=== PATIENT | female | born 1935 | race Caucasian/White ===

== ENCOUNTER 2016-12-10 12:29 | Inpatient (IN) | payer MEDICARE, OTHER ==
--- NOTE | 2016-12-10 12:50 | ED Physician Chart ---
Chief Complaint/HPI - Patient Information Date Seen:: 12/10/16 Time Seen:: 12:40 Chief Complaint:: WBC OF 25 K History of Present Illness:: This 81-year-old female was sent to the hospital by her primary care physician, Dr. Garza, because of a white count in the 25,000 range and suspected sepsis. On review of records which accompanied her it was unclear if the patient had been running any fever prior to arrival in the ED. Patient suffers from Alzheimer's disease and is unable to provide any information. Records which accompanied the patient noted that she had chronic respiratory failure with both hypoxia and for hypercaptnia. The record also notes that the patient has hypothyroidism, long-standing diabetes, epilepsy and peptic ulcer disease. The patient is on a ventilator with a tracheostomy. Patient also has a history of Parkinson's disease, anemia and a pressure sore over in the sacral region. Neither the patient nor the transporting EMS personnel had any additional information. Allergies:: Allergies Allergy/AdvReac Type Severity Reaction Status Date / Time No Known Allergies Allergy Verified 03/03/16 18:27 Review of Systems - Review of Systems General/Constitutional: Other (a reliable review of systems was unobtainable due to the patient's mental condition.) Past Medical History - Past Medical History Past Medical History: HTN, CVA/TIA, Dementia, Other (See HPI for a list of past medical history.) Social History: Care Facility Employment:: No information is available on the patient's use of tobacco, alcohol or illicit drugs. The patient came in from a care facility.. Family Medical History - Family Member Mother History Unknown: Yes Ethnicity: Living Status: Unknown Physical Exam - Physical Examination Other Gen/Cons comments:: Patient is morbidly obese and does not respond to verbal commands or questions. Head: Atraumatic Eyes: Lids, conjuctiva normal, PERRL Other Eyes comments:: Patient will not cooperate with the EOM exam. Skin: No ecchymosis, Well hydrated, No lymphadenopathy Other Skin comments:: Patient has a scarred over sacral decubitus ulceration. ENMT: External ears, nose nl Other ENMT comments:: Examination of the oral cavity is made difficult by the patient's clenched teeth. Her teeth appear to be in moderately good repair considering her age. Gag Reflex was intact. No inflammation of the posterior pharynx. What I could observe of the oral mucosa it appeared to be adequately hydrated. No inspissated secretions noted. Other Neck comments:: Examination of the neck is difficult limited due to the patient's weight and the fact that she has a tracheostomy tube in place. No palpable masses or thyromegaly. No JVD. Other Respiratory comments:: Patient has ventilator-assisted respiratory drive. Breath sounds sounded clear to anterior auscultation. No wheezing and no rhonchi were appreciated. Cardio Vascular: No murmur, gallop, rubs, NL S1 S2 Other Cardio Vascular comments:: The patient has surprisingly good pulses in all 4 extremities. GI: No McBurney tenderness Other GI comments:: On examination the patient has a very large ventral hernia from surgical incisions. Bowel sounds were present. No palpable masses or organomegaly. The patient did not appear to have any tenderness in the abdomen. There is a gastrostomy tube in the left upper quadrant. A Morfin catheter is also in place at the time of admission. Extremities: No tenderness or effusion, No edema Other Neuro/Psych comments:: The patient withdraws to noxious stimuli in both upper extremities. The patient has a positive Babinski in the right lower extremity. The left lower extremity the patient withdraws to noxious stimuli. Misc: Normal back Other Misc comments:: Patient has a deep scarred over decubital ulcer in the sacral region. Labs/Radiology/EKG Results - Lab Results Results: Laboratory Tests 12/10/16 12/10/16 12/10/16 13:00 13:00 13:00 WBC 17.8 H D RBC 3.11 L Hgb 8.9 L Hct 26.6 L MCV 85.5 MCH 28.8 MCHC Differential 33.7 RDW 17.0 Plt Count 218 MPV 8.2 Band Neutrophils % 4 Neutrophils (Manual) 77 Lymphocytes 11 L Monocytes 5 Eosinophils 3 Platelet Estimate ADEQUATE Platelet Morphology NORMAL RBC Morph Micro Appear NORMAL Sodium 124 L Potassium 4.0 Chloride 90 L Carbon Dioxide 29.4 Anion Gap 8.6 BUN 47 H Creatinine 0.7 Est GFR ( Amer) TNP Est GFR (Non-Af Amer) TNP BUN/Creatinine Ratio 67.1 Glucose 356 H Hemoglobin A1c % Whole Bld Lactic Acid 2.64 H* Calcium 9.7 Total Bilirubin 0.6 AST 54 H ALT 40 Alkaline Phosphatase 105 H Troponin I Total Protein 7.9 Albumin 3.3 L Globulin 4.6 Albumin/Globulin Ratio 0.7 L Urine Source Urine Color Urine Clarity Urine pH Ur Specific [place] Urine Protein Urine Glucose (UA) Urine Ketones Urine Blood Urine Nitrate Urine Bilirubin Urine Urobilinogen Ur Leukocyte Esterase Urine RBC Urine WBC Ur Epithelial Cells Urine Bacteria 12/10/16 12/10/16 12/10/16 13:00 13:00 13:40 WBC RBC Hgb Hct MCV MCH MCHC Differential RDW Plt Count MPV Band Neutrophils % Neutrophils (Manual) Lymphocytes Monocytes Eosinophils Platelet Estimate Platelet Morphology RBC Morph Micro Appear Sodium Potassium Chloride Carbon Dioxide Anion Gap BUN Creatinine Est GFR ( Amer) Est GFR (Non-Af Amer) BUN/Creatinine Ratio Glucose Hemoglobin A1c % 7.8 H Whole Bld Lactic Acid Calcium Total Bilirubin AST ALT Alkaline Phosphatase Troponin I 0.01 Total Protein Albumin Globulin Albumin/Globulin Ratio Urine Source RANDOM Urine Color STRAW Urine Clarity CLEAR Urine pH 7.5 Ur Specific [place] <= 1.005 Urine Protein NEGATIVE Urine Glucose (UA) NEGATIVE Urine Ketones NEGATIVE Urine Blood NEGATIVE Urine Nitrate NEGATIVE Urine Bilirubin NEGATIVE Urine Urobilinogen 0.2 Ur Leukocyte Esterase NEGATIVE Urine RBC NONE SEEN Urine WBC NONE SEEN Ur Epithelial Cells NONE SEEN Urine Bacteria NONE SEEN 12/10/16 15:08 WBC RBC Hgb Hct MCV MCH MCHC Differential RDW Plt Count MPV Band Neutrophils % Neutrophils (Manual) Lymphocytes Monocytes Eosinophils Platelet Estimate Platelet Morphology RBC Morph Micro Appear Sodium Potassium Chloride Carbon Dioxide Anion Gap BUN Creatinine Est GFR ( Amer) Est GFR (Non-Af Amer) BUN/Creatinine Ratio Glucose Hemoglobin A1c % Whole Bld Lactic Acid 2.11 H* Calcium Total Bilirubin AST ALT Alkaline Phosphatase Troponin I Total Protein Albumin Globulin Albumin/Globulin Ratio Urine Source Urine Color Urine Clarity Urine pH Ur Specific [place] Urine Protein Urine Glucose (UA) Urine Ketones Urine Blood Urine Nitrate Urine Bilirubin Urine Urobilinogen Ur Leukocyte Esterase Urine RBC Urine WBC Ur Epithelial Cells Urine Bacteria The CBC shows a white count of 17,000 range and a hemoglobin level just under 9 g percent. Initial lactic acid was 2.64 and after IV hydration and it fell to 2.1 the high BUN to creatinine ratio is suggestive of GI bleeding. Urinalysis was negative for any evidence of UTI. Patient has a rather drastic hyponatremia of 124. - Radiology Results Results: Single view chest x-ray: - EKG Interpretations EKG Time:: 12:50 Rate & Rhythm: normal sinus rhythm at a rate of 86. No ectopy. Normal axis. Intervals P [place]: normal Intervals: the MS interval was normal. The QRS interval is normal. QT interval vidya Comments:: ST segment elevation or depression. Impression normal EKG. Assessment - Assessment General Assessment: CASE SUMMARY: this 81-year-old female was referred to the ED by her PMD, Dr. Garza. The reason for the referral was leukocytosis in the 25 K range Enter rule out sepsis. The patient's vital signs were stable and she was not febrile. Chest x-ray showed bilateral patchy infiltrates consistent with pneumonia. The UA was negative for any evidence of UTI. The patient was treated with 30 cc/KG normal saline, IV ceftriaxone 2 g, and Levaquin 750 mg. The patient will be admitted for further diagnostic evaluation and treatment of sepsis. MDM DDX LEUKOCYTOSIS: NOT UTI Based on you a result. NOT Cellulitis based on physical examination. NOT sepsis due to central line based on physical exam ED Septic Shock - . Is Septic Shock (SBP<90, OR Lactate>4 mmol\L) present?: No Reassessment (Disposition) - Reassessment Reassessment Condition:: Unchanged - Diagnosis Diagnosis:: PNEUMONIA, BILATERAL. DIABETES WITH HYPERGLYCEMIA. MARKED HYPONATREMIA - Patient Disposition Discharge/Transfer:: Acute Care w/in this hosp ED Discharge Plan - Patient Disposition Admit/Discharge/Transfer: Acute Care w/in this hosp Condition at Disposition: Unchanged
[2016-12-10 13:07] LABS: HEMATOCRIT 26.6 % (35.0-45.0); HEMOGLOBIN 8.9 gm/dL (11.7-16.1); MEAN CELL VOLUME 85.5 fl (81-100); MEAN CORPUSCULAR HEMOGLOBIN 28.8 pg (27.0-31.0); MEAN CORPUSCULAR HGB CONC 33.7 pg (28.0-36.0); MEAN PLATELET VOLUME 8.2 fl; PLATELET COUNT 218 Th/cmm (150-400); RED BLOOD COUNT 3.11 Mil/cmm (3.80-5.20)
[2016-12-10 13:14] LABS: WHITE BLOOD COUNT 17.8 Th/cmm (4.8-10.8)
[2016-12-10 13:26] LABS: ALB/GLOB RATIO 0.7 (1.0-1.8); ALKALINE PHOSPHATASE 105 U/L (34-104); ANION GAP 8.6 (7.0-16.0); BILIRUBIN,TOTAL 0.6 mg/dL (0.3-1.0); BUN - UREA NITROGEN 47 mg/dL (7-25); BUN/CREATININE RATIO 67.1; CALCIUM SERUM 9.7 mg/dL (8.6-10.3); CARBON DIOXIDE 29.4 mEq/L (21.0-31.0); CHLORIDE 90 mEq/L (98-107); CREATININE - SERUM 0.7 mg/dL (0.6-1.2); GLUCOSE 356 mg/dL (70-105); SGOT 54 U/L (13-39); SGPT/ALT 40 U/L (7-52); SODIUM SERUM 124 mEq/L (136-145)
[2016-12-10] MEDS ORDERED: cefTRIAXone 2 GM in Sodium Chloride 0.9% 100 ML IV ONE (14:06)
[2016-12-10] MEDS ORDERED: Levofloxacin 750mg/150mL 750 MG/150 ML BAG IV ONE ×2 (14:07→15:39)
[2016-12-10 14:29] LABS: BAND NEUTROPHILE 4 % (0-10); EOSINOPHIL 3 % (0-5); NEUTROPHILS 77 % (40-80); PLATELET ESTIMATE ADEQUATE (NORMAL); PLATELET MORPHOLOGY NORMAL (NORMAL); TOTAL CELLS COUNTED 100
[2016-12-10 14:37] LABS: URINE BILIRUBIN NEGATIVE (NEGATIVE); URINE BLOOD NEGATIVE (NEGATIVE); URINE GLUCOSE (UA) NEGATIVE (NEGATIVE); URINE KETONE NEGATIVE (NEGATIVE); URINE PH 7.5 (4.6 - 8.0); URINE PROTEIN NEGATIVE (NEGATIVE); URINE UROBILINOGEN 0.2 E.U./dL (0.2 - 1.0)
[2016-12-10 15:03] LABS: URINE COLOR STRAW
[2016-12-10 15:07] LABS: URINE BACTERIA NONE SEEN /hpf (NONE SEEN); URINE EPITHELIAL CELLS NONE SEEN /lpf (FEW); URINE RBC NONE SEEN /hpf (0-5); URINE WBC NONE SEEN /hpf (0-5)
[2016-12-10] MEDS ORDERED: GLUCAGON HCl 1 MG KIT IM PRN (19:20)
[2016-12-10] MEDS ORDERED: cefTRIAXone 1 GM in Sodium Chloride 0.9% 50 ML IV SCH (19:20)
[2016-12-10] MEDS ORDERED: Albuterol/Ipratropium Neb 3 ML AERS HHN PRN (19:20)
[2016-12-10] MEDS ORDERED: Guaifenesin DM 10 ML UDC GT PRN (19:20)
[2016-12-10] MEDS ORDERED: INSULIN ASPART SLIDING SCALE 100 UNITS/ML UNIT SUBQ SCH (19:20)
[2016-12-10] MEDS ORDERED: Magnesium Citrate 1.75 GM/300 mL Bottle PO PRN (19:20)
[2016-12-10] MEDS ORDERED: Lactulose 10 Gm/15 mL 30mL UDC GT PRN (19:20)
[2016-12-10] MEDS ORDERED: LANOLIN TP SCH (20:00)
[2016-12-10] MEDS: Levetiracetam 500 mg/5mL 5mL UDC GT SCH (21:03)
[2016-12-10] MEDS: Chlorhexidine Gluconate 0.12% 15mL Mouthwash MM SCH (21:03)
[2016-12-10] MEDS: Sodium Chloride 0.9% 1,000 ML IV SCH (21:14)
[2016-12-10] MEDS: INSULIN 70/30 100 UNITS/ML SUBQ SCH (21:21)
[2016-12-10] MEDS: Albuterol/Ipratropium Neb 3 ML AERS HHN SCH ×2 (22:46→22:47)
[2016-12-11] MEDS: Albuterol/Ipratropium Neb 3 ML AERS HHN SCH ×4 (03:20→19:10)
[2016-12-11] MEDS: Sodium Chloride 0.9% 1,000 ML IV SCH ×2 (04:25→14:20)
[2016-12-11] MEDS: INSULIN ASPART SLIDING SCALE 100 UNITS/ML UNIT SUBQ SCH ×5 (06:46→17:57)
[2016-12-11 06:49] LABS: HEMOGLOBIN 8.5 gm/dL (11.7-16.1)
[2016-12-11] MEDS: INSULIN 70/30 100 UNITS/ML SUBQ SCH ×2 (06:50→21:00)
[2016-12-11 06:57] LABS: HEMATOCRIT 25.6 % (35.0-45.0); MEAN CELL VOLUME 85.7 fl (81-100); MEAN CORPUSCULAR HEMOGLOBIN 28.5 pg (27.0-31.0); MEAN CORPUSCULAR HGB CONC 33.3 pg (28.0-36.0); MEAN PLATELET VOLUME 9.8 fl; RED BLOOD COUNT 2.99 Mil/cmm (3.80-5.20)
[2016-12-11 07:13] LABS: ALB/GLOB RATIO 0.8 (1.0-1.8); ALKALINE PHOSPHATASE 94 U/L (34-104); ANION GAP 9.6 (7.0-16.0); BILIRUBIN,TOTAL 0.4 mg/dL (0.3-1.0); BUN - UREA NITROGEN 34 mg/dL (7-25); BUN/CREATININE RATIO 48.6; CALCIUM SERUM 9.1 mg/dL (8.6-10.3); CARBON DIOXIDE 26.5 mEq/L (21.0-31.0); CHLORIDE 100 mEq/L (98-107); CREATININE - SERUM 0.7 mg/dL (0.6-1.2); GLUCOSE 255 mg/dL (70-105); POTASSIUM SERUM 4.1 mEq/L (3.5-5.1); SGOT 37 U/L (13-39); SGPT/ALT 51 U/L (7-52); SODIUM SERUM 132 mEq/L (136-145)
[2016-12-11 07:52] LABS: PLATELET COUNT 170 Th/cmm (150-400); WHITE BLOOD COUNT 17.3 Th/cmm (4.8-10.8)
[2016-12-11 07:56] LABS: pH 7.48 (7.35-7.45)
[2016-12-11 07:57] LABS: ABG SOURCE Arterial; ALLEN TEST Positive; BE(B) 6.4 mEq/L (-3.0-3.0); FIO2 30; HCO3 29.2 mEq/L (20.0-26.0); MECH RATE 16; MECH VT 500
--- NOTE | 2016-12-11 08:09 | Internal Medicine Prog Note ---
Internal Medicine Subjective - Subjective Service Date: 12/11/16 ([id number] hn dictated) Internal Medicine Objective - Results Result Diagrams: 12/11/16 04:32 12/11/16 04:32 Recent Labs: Laboratory Last Values WBC 17.3 Th/cmm (4.8-10.8) H 12/11/16 04:32 RBC 2.99 Mil/cmm (3.80-5.20) L 12/11/16 04:32 Hgb 8.5 gm/dL (11.7-16.1) L 12/11/16 04:32 Hct 25.6 % (35.0-45.0) L 12/11/16 04:32 MCV 85.7 fl (81-100) 12/11/16 04:32 MCH 28.5 pg (27.0-31.0) 12/11/16 04:32 MCHC Differential 33.3 pg (28.0-36.0) 12/11/16 04:32 RDW 16.0 % (11.5-20.0) 12/11/16 04:32 Plt Count 170 Th/cmm (150-400) D 12/11/16 04:32 MPV 9.8 fl 12/11/16 04:32 Band Neutrophils % 4 % (0-10) 12/10/16 13:00 Neutrophils (Manual) 77 % (40-80) 12/10/16 13:00 Lymphocytes 11 % (20-50) L 12/10/16 13:00 Monocytes 5 % (2-10) 12/10/16 13:00 Eosinophils 3 % (0-5) 12/10/16 13:00 Platelet Estimate ADEQUATE (NORMAL) 12/10/16 13:00 Platelet Morphology NORMAL (NORMAL) 12/10/16 13:00 RBC Morph Micro Appear NORMAL (NORMAL) 12/10/16 13:00 Specimen Source Arterial 12/11/16 07:44 Sample Site Right Radial 12/11/16 07:44 pH 7.48 (7.35-7.45) H 12/11/16 07:44 pCO2 41.0 mmHg (35.0-45.0) 12/11/16 07:44 pO2 86.0 mmHg (80.0-100.0) 12/11/16 07:44 HCO3 29.2 mEq/L (20.0-26.0) H 12/11/16 07:44 Base Excess 6.4 mEq/L (-3.0-3.0) H 12/11/16 07:44 O2 Saturation 97.0 % (92.0-100.0) 12/11/16 07:44 Terry Test Positive 12/11/16 07:44 Vent Rate 16 12/11/16 07:44 Inspired O2 30 12/11/16 07:44 Tidal Volume 500 12/11/16 07:44 PEEP 5 12/11/16 07:44 Pressure (ins/psv/peep) NA 12/11/16 07:44 Critical Value LZHANG 12/11/16 07:44 Sodium 132 mEq/L (136-145) L 12/11/16 04:32 Potassium 4.1 mEq/L (3.5-5.1) 12/11/16 04:32 Chloride 100 mEq/L (98-107) 12/11/16 04:32 Carbon Dioxide 26.5 mEq/L (21.0-31.0) 12/11/16 04:32 Anion Gap 9.6 (7.0-16.0) 12/11/16 04:32 BUN 34 mg/dL (7-25) H 12/11/16 04:32 Creatinine 0.7 mg/dL (0.6-1.2) 12/11/16 04:32 Est GFR ( Amer) TNP 12/11/16 04:32 Est GFR (Non-Af Amer) TNP 12/11/16 04:32 BUN/Creatinine Ratio 48.6 12/11/16 04:32 Glucose 255 mg/dL (70-105) H 12/11/16 04:32 POC Glucose 270 MG/DL (70 - 105) H 12/11/16 05:48 Hemoglobin A1c % 7.8 % (4.0-6.0) H 12/10/16 13:00 Whole Bld Lactic Acid 2.11 mmol/L (0.60-1.99) H* 12/10/16 15:08 Calcium 9.1 mg/dL (8.6-10.3) 12/11/16 04:32 Total Bilirubin 0.4 mg/dL (0.3-1.0) 12/11/16 04:32 AST 37 U/L (13-39) 12/11/16 04:32 ALT 51 U/L (7-52) 12/11/16 04:32 Alkaline Phosphatase 94 U/L (34-104) 12/11/16 04:32 Troponin I 0.01 ng/mL (0.01-0.05) 12/10/16 13:00 Total Protein 7.4 gm/dL (6.0-8.3) 12/11/16 04:32 Albumin 3.2 gm/dL (3.7-5.3) L 12/11/16 04:32 Globulin 4.2 gm/dL 12/11/16 04:32 Albumin/Globulin Ratio 0.8 (1.0-1.8) L 12/11/16 04:32 Urine Source RANDOM 12/10/16 13:40 Urine Color STRAW 12/10/16 13:40 Urine Clarity CLEAR (CLEAR) 12/10/16 13:40 Urine pH 7.5 (4.6 - 8.0) 12/10/16 13:40 Ur Specific [place] <= 1.005 (1.005-1.030) 12/10/16 13:40 Urine Protein NEGATIVE mg/dL (NEGATIVE) 12/10/16 13:40 Urine Glucose (UA) NEGATIVE mg/dL (NEGATIVE) 12/10/16 13:40 Urine Ketones NEGATIVE mg/dL (NEGATIVE) 12/10/16 13:40 Urine Blood NEGATIVE (NEGATIVE) 12/10/16 13:40 Urine Nitrate NEGATIVE (NEGATIVE) 12/10/16 13:40 Urine Bilirubin NEGATIVE (NEGATIVE) 12/10/16 13:40 Urine Urobilinogen 0.2 E.U./dL (0.2 - 1.0) 12/10/16 13:40 Ur Leukocyte Esterase NEGATIVE (NEGATIVE) 12/10/16 13:40 Urine RBC NONE SEEN /hpf (0-5) 12/10/16 13:40 Urine WBC NONE SEEN /hpf (0-5) 12/10/16 13:40 Ur Epithelial Cells NONE SEEN /lpf (FEW) 12/10/16 13:40 Urine Bacteria NONE SEEN /hpf (NONE SEEN) 12/10/16 13:40 - Physical Exam Vitals and I&O: Vital Signs Temp 99.5 F 12/11/16 04:00 Pulse 98 12/11/16 06:56 Resp 15 12/11/16 06:00 BP 107/54 12/11/16 06:00 Pulse Ox 100 12/11/16 06:56 Intake & Output 12/10/16 12/11/16 12/11/16 18:59 06:59 18:59 Intake Total 876.666 Output Total 1200 Balance -323.334 Weight (lbs) 201 lb Intake: Intake, IV Amount 876.666 Sodium Chloride 0.9% 1, 876.666 000 ml @ 100 mls/hr IV . Q10H JUAN FRANCISCO Rx#:[id number] Oral 0 Output: Urine 1200 Other: # Bowel Movements 1 Stool Characteristics Soft Black Green Active Medications: Current Medications Acetaminophen (Tylenol 650mg/20.3ml Suspension) 650 mg GT Q6HR PRN PRN Reason: Pain or Fever >101 Stop: 02/08/17 19:19 Acetaminophen/Hydrocodone Bitart ([place] 5mg/325mg) 1 tab GT DAILY JUAN FRANCISCO Stop: 02/09/17 08:59 Acetaminophen/Hydrocodone Bitart ([place] 5mg/325mg) 1 tab GT Q6H PRN PRN Reason: Pain (Severe) Stop: 02/08/17 19:19 Acetylcysteine (Mucomyst 20%) 2 ml HHN Q6H JUAN FRANCISCO Stop: 02/08/17 19:19 Last Admin: 12/11/16 01:13 Dose: Not Given Albuterol/Ipratropium (Duoneb Neb) 3 ml HHN Q4H JUAN FRANCISCO Stop: 02/08/17 19:19 Last Admin: 12/11/16 06:56 Dose: 3 ml Albuterol/Ipratropium (Duoneb Neb) 3 ml HHN Q2H PRN PRN Reason: Wheezing Stop: 02/08/17 19:19 Allopurinol (Zyloprim) 200 mg GT DAILY [facility] Stop: 02/09/17 08:59 Amlodipine Besylate (Norvasc) 5 mg GT DAILY [facility] Stop: 02/09/17 08:59 Ascorbic Acid (Vitamin C) 500 mg GT DAILY [facility] Stop: 02/09/17 08:59 Benztropine Mesylate (Cogentin) 1 mg GT BID [facility] Stop: 02/09/17 08:59 Carbidopa/Levodopa (Sinemet 25mg-100 Mg) 1 tab GT DAILY [facility] FRANCISCO Stop: 02/09/17 08:59 Chlorhexidine Gluconate (Peridex) 15 ml MM [facility] Stop: 02/08/17 19:59 Last Admin: 12/10/16 21:03 Dose: 15 ml Clonazepam (Klonopin) 0.5 mg GT BID JUAN FRANCISCO PRN Reason: Protocol Stop: 02/09/17 08:59 Dextrose (Glutose 40%) 18.75 gm PO PRN PRN PRN Reason: Blood Glucose less than 70 Stop: 02/08/17 19:19 Docusate Sodium (Colace) 250 mg PO BID [facility] Stop: 02/09/17 08:59 Famotidine (Pepcid) 20 mg GT DAILY [facility] Stop: 02/09/17 08:59 Ferrous Sulfate (Iron) 330 mg GT DAILY [facility] Stop: 02/09/17 08:59 Glipizide (Glucotrol) 5 mg GT BID [facility] Stop: 02/09/17 08:59 Glucagon (Glucagen) 1 mg IM PRN PRN PRN Reason: Blood Glucose less than 70 Stop: 02/08/17 19:19 Guaifenesin/Dextromethorphan (Robitussin Dm) 5 ml GT Q6H PRN PRN Reason: Cough Stop: 02/08/17 19:19 Last Admin: 12/11/16 07:01 Dose: 5 ml Heparin Sodium (Porcine) (Heparin) 5,000 units SUBQ Q12HR [facility] Stop: 02/08/17 20:59 Last Admin: 12/10/16 21:03 Dose: 5,000 units Ceftriaxone Sodium 1 gm/ (Sodium Chloride) 50 mls @ 100 mls/hr IV Q24HR [facility] Stop: 02/08/17 19:19 Sodium Chloride (Nacl 0.9%) 1,000 mls @ 100 mls/hr IV .Q10H [facility] Stop: 02/08/17 19:19 Last Infusion: 12/11/16 06:00 Dose: 100 mls/hr Insulin Aspart (Novolog Insulin Sliding Scale) 0 units SUBQ Q6HR [facility] FRANCISCO PRN Reason: Protocol Stop: 02/08/17 19:19 Last Admin: 12/11/16 07:15 Dose: Not Given Insulin Human Isoph/Insulin Regular (Novolin 70/30) 22 units SUBQ HS [facility] PRN Reason: Protocol Stop: 02/08/17 20:59 Last Admin: 12/10/16 21:21 Dose: 22 units Insulin Human Isoph/Insulin Regular (Novolin 70/30) 45 units SUBQ QDAC [facility] FRANCISCO PRN Reason: Protocol Stop: 02/09/17 07:29 Last Admin: 12/11/16 06:50 Dose: 45 units Lactulose (Cephulac) 30 gm GT PRN PRN PRN Reason: BOWEL MANAGEMENT Stop: 02/08/17 19:19 Levetiracetam (Keppra) 1,000 mg GT Q12HR [facility]ANCISCO Stop: 02/08/17 20:59 Last Admin: 12/10/16 21:03 Dose: 1,000 mg Levothyroxine Sodium (Synthroid) 0.1 mg GT QDAC [facility]ANCISCO Stop: 02/09/17 07:29 Lisinopril (Zestril) 20 mg GT DAILY [facility]ANC[facility]CO Stop: 02/09/17 08:59 Magnesium Citrate (Citroma) 17.5 gm PO Q12HR PRN PRN Reason: Constipation Stop: 02/08/17 19:19 Metoclopramide HCl (Reglan) 10 mg GT Q6HR [facility] FRANCISCO Stop: 02/08/17 19:19 Last Admin: 12/11/16 06:18 Dose: 10 mg Miscellaneous (Amino Acids/Protein Hydrolys [Pro-Stat Sugar Free Liquid]) 30 ml GT BID [facility] FRANCISCO Stop: 02/09/17 08:59 Miscellaneous (Calcium Alginate [Juan]) 1 each TP DAILY [facility]ANCISCO Stop: 02/09/17 08:59 Miscellaneous (Cran/Vitc/Mannose/Fos/Bromeln [Uti-Stat Liquid]) 30 ml GT DAILY [facility]ANCISCO Stop: 02/09/17 08:59 Miscellaneous (L. Acidophilus/L.Bulgaricus [Lactinex Chewable Tablet]) 2 each GT BID [facility] FRANCISCO Stop: 02/09/17 08:59 Miscellaneous (Lanolin [Lantiseptic]) 113 gm TP QSHIFT [facility]UAN FRANCISCO Stop: 02/08/17 19:59 Miscellaneous (Petrolatum,White/Lanolin [Vitamin A & D Ointment]) 113 gm TP DAILY [facility] FRANCISCO Stop: 02/09/17 08:59 Multivitamins/Vitamin C (Theragran) 5 ml GT DAILY [facility] FRANCISCO Stop: 10/12/17 08:59 Ondansetron HCl (Zofran) 4 mg IV Q4H PRN PRN Reason: Nausea / Vomiting Stop: 02/08/17 19:19 Sucralfate (Carafate) 1 gm GT QID [facility] Stop: 02/08/17 20:59 Last Admin: 12/10/16 21:29 Dose: 1 gm Tramadol HCl (Ultram) 50 mg GT Q6H PRN PRN Reason: Pain (Moderate) Stop: 02/08/17 19:19 Zinc Sulfate (Zinc Sulfate) 220 mg GT DAILY [facility] Stop: 02/09/17 08:59 - Procedures Procedures: Procedures Procedure Code Date AIRWAYS SURGICAL PROCEDURE 71975 03/03/16 CHANGE GASTROSTOMY TUBE 34967 06/06/13 CONTINUOUS INVASIVE MECHANICAL VENTILATION <96 CONSEC HRS 96.71 02/02/13 CONTINUOUS INVASIVE MECHANICAL VENTILATION =/>96 CONSEC HRS 96.72 06/06/13 [place] [address] 03/03/16 IMMUNIZATION ADMIN 11981 03/03/16 INFLUENZA VACCINATION 99.52 02/02/13 INSERT NON-TUNNEL CV CATH 20487 03/03/16 INSERT PICC CATH 40808 02/02/13 INSERTION OF INFUSION DEV INTO SUP VENA CAVA, PERC APPROACH [id number] 03/03/16 INTRODUCTION OF SERUM/TOX/VACCINE INTO MUSCLE, PERC APPROACH [id number] 03/03/16 OTHER GASTROSTOMY 43.19 06/03/10 REPLACE GASTROSTOMY TUBE 97.02 06/06/13 RESPIRATORY VENTILATION, GREATER THAN 96 CONSECUTIVE HOURS [id number] 03/03/16 VACCINATION NEC 99.55 02/02/13 VENOUS CATHETERIZATION NEC 38.93 02/02/13 VENT MGMT INPAT INIT DAY 77483 03/03/16 VENT MGMT INPAT SUBQ DAY 35603 03/03/16 Internal Medicine Assmt/Plan - Assessment Assessment: Lactic Acidosis Fever Sepsis Uncontrolled Glucose Level Acute on chronic respiratory failure Vdrf seizure decubitus ulcer morbid obesity parkinsons dm2
[2016-12-11] MEDS ORDERED: Dextrose 50% 50 mL Abboject IVP PRN (08:19)
[2016-12-11] MEDS: Levothyroxine 0.1 Mg Tab GT SCH (08:25)
[2016-12-11] MEDS: Chlorhexidine Gluconate 0.12% 15mL Mouthwash MM SCH ×2 (08:30→19:47)
--- NOTE | 2016-12-11 08:42 | Diagnostic Imaging Report ---
CHEST X-RAY: AP view INDICATION: Elevated white blood cell count COMPARISON: Chest x-ray 03/10/2016 FINDINGS: Tracheostomy tube is stable. The prior right PICC line has been removed. Low lung volumes are seen with hazy lung densities bilaterally. There is elevation of the right hemidiaphragm. Heart size is normal. Degenerative changes of the spine are noted. IMPRESSION: Low lung volumes with hazy bilateral pulmonary densities. Atelectasis or developing infiltrate cannot be excluded. Clinical correlation and follow-up is recommended.
[2016-12-11] MEDS ORDERED: Multivitamin 5 mL UDC GT SCH (09:00)
[2016-12-11] MEDS ORDERED: ACIDOPHILUS GT SCH (09:00)
[2016-12-11] MEDS ORDERED: BULGARICUS GT SCH (09:00)
[2016-12-11] MEDS ORDERED: Non-Formulary Item 1 EA (Calcium Alginate [Kendall] 1 EACH) TP SCH (09:00)
[2016-12-11] MEDS ORDERED: Non-Formulary Item 1 EA (Amino Acids/Protein Hydrolys [Pro-Stat Sugar Free Liquid] 30 ML) GT SCH (09:00)
[2016-12-11] MEDS ORDERED: LANOLIN TP SCH (09:00)
[2016-12-11] MEDS ORDERED: PETROLATUM WHITE TP SCH (09:00)
[2016-12-11] MEDS ORDERED: Non-Formulary Item 1 EA (Cran/Vitc/Mannose/Fos/Bromeln [Uti-Stat Liquid] 30 ML) GT SCH (09:00)
[2016-12-11] MEDS: Ferrous Sulfate 300 MG/5 ML UDC GT SCH (09:25)
[2016-12-11] MEDS: Levetiracetam 500 mg/5mL 5mL UDC GT SCH ×2 (09:26→20:41)
[2016-12-11] MEDS: Hydrocodone/APAP 5mg/325mg Tab GT SCH (09:28)
[2016-12-11] MEDS: Benztropine 1 MG TAB GT SCH ×2 (09:29→16:19)
[2016-12-11] MEDS: Petrolatum (White) Oint 0.6 Oz Tube TP SCH (09:30)
[2016-12-11] MEDS: Ascorbic Acid 500 mg/5 mL UDC GT SCH (09:30)
[2016-12-11] MEDS ORDERED: Probiotic Screen MC PRN (10:40)
[2016-12-11 10:52] LABS: ANISOCYTOSIS 1+; BAND NEUTROPHILE 8 % (0-10); EOSINOPHIL 1 % (0-5); METAMYELOCYTE 2 % (0-0); NEUTROPHILS 78 % (40-80); PLATELET ESTIMATE ADEQUATE (NORMAL); PLATELET MORPHOLOGY PLATELET CLUMPS SEEN (NORMAL); TOTAL CELLS COUNTED 100
--- NOTE | 2016-12-11 11:06 | History & Physical ---
ADMIT DATE: 12/11/2016 CHIEF COMPLAINT: Fever x 3 days and WBC of 25,000. HISTORY OF PRESENT ILLNESS: This is an 81-year-old female who is a resident of [facility] who is brought here to [facility] with a 3-day history of fever and apparently the patient's white count at the skilled nursing was at 25,000. For this reason, the patient is now admitted to the ICU unit. PAST MEDICAL HISTORY: Chronic hydrocephalus, seizure, VDRF, previous pneumonia, decubitus ulceration, morbid obesity, Parkinson's disease, and type 2 diabetes. PAST SURGICAL HISTORY: Gastrostomy and tracheostomy. ALLERGIES: No drug allergies. MEDICATIONS: Please see medication reconciliation. FAMILY HISTORY: Noncontributory. SOCIAL HISTORY: The patient resides at [facility] requiring 24-hour nursing and RT care. REVIEW OF SYSTEMS: Unable to obtain, the patient is nonverbal. PHYSICAL EXAMINATION: GENERAL: The patient is morbidly obese, appears chronically ill. VITAL SIGNS: Temperature 98.3, heart rate 98, blood pressure 107/54, respirations 15, O2 sat of 100%. HEENT: Head; normocephalic, atraumatic. NECK: Supple. No mass. LUNGS: Rhonchi bilaterally. HEART: Regular rhythm. ABDOMEN: Mildly distended. LABORATORY DATA: WBC 17.3, H and H 8.5 and 25.6, platelet of 170. Sodium 132, potassium 4.1, chloride 100, BUN of 34, creatinine 0.7, whole lactic acid of 2.11. The patient had a urinalysis done, negative for any UTI. ASSESSMENT: Rule out sepsis, lactic acidosis, uncontrolled glucose level, ventilator-dependent respiratory failure, seizure, morbid obesity, Parkinson's, type 2 diabetes, chronic hydrocephalus, acute on chronic respiratory failure. PLAN: We will get a chest x-ray done, sputum culture. We will get Pulmo on the case, also wound care. We will keep the patient on empiric IV antibiotics. We will get blood cultures as well. Monitor patient's glucose level on high dose sliding scale. Continue to follow this patient. JOB# [id number]
--- NOTE | 2016-12-11 20:38 | Consultation ---
DATE OF CONSULTATION: 12/11/2016 REFERRING PHYSICIAN: Dr. Garza. Thank you very much Dr. Garza, for this consultation. HISTORY OF PRESENT ILLNESS: This is an 81-year-old female known to me from halfway and previous admissions. The patient apparently was having more congestion at halfway lately and started having increasing significant leukocytosis and fever and was brought in for further treatment and management. The patient is on a ventilator chronically for a few years now and has history of CVA, hypertension, diabetes mellitus, and previous sepsis infection in the past. PAST MEDICAL HISTORY: As above. SOCIAL HISTORY: [facility] resident. No history of smoking. REVIEW OF SYSTEMS: Unable to obtain because of the patient's condition. PHYSICAL EXAMINATION: GENERAL: The patient is on a vent and nonverbal. VITAL SIGNS: Temperature 99.6, pulse 101, respirations 16, blood pressure 112/64, and saturation 100%. HEENT: Atraumatic and normocephalic. Pupils are reactive to light and accommodation. Ears, nose, and throat are normal. NECK: Supple. No JVD. CHEST: There are a few rhonchi bilaterally. HEART: Regular rate and rhythm. ABDOMEN: Soft. EXTREMITIES: No edema. LABORATORY DATA: WBC is 17.3, hemoglobin 8.5, hematocrit 25.6, and platelets 170,000. ABGs: pH 7.48, pCO2 of 41, pO2 is 86, bicarb 29, and saturation 97%. Sodium is 132, potassium 4.1, BUN is 34, and creatinine 0.7. Urinalysis is negative. Chest x-ray, lower lung volumes, bibasilar infiltrates and atelectasis. IMPRESSION: This is an 81-year-old female with: 1. Chronic respiratory failure. 2. Pneumonia. 3. Dysphagia. 4. Weakness. PLAN: 1. IV antibiotics. 2. Nebulizer treatment. 3. Sputum culture. 4. Ventilator support. 5. Mucomyst. JOB# [id number]
[2016-12-11] MEDS: Hydrocodone/APAP 5mg/325mg Tab GT PRN (21:12)
[2016-12-12] MEDS: INSULIN ASPART SLIDING SCALE 100 UNITS/ML UNIT SUBQ SCH ×4 (00:01→17:04)
[2016-12-12] MEDS: Albuterol/Ipratropium Neb 3 ML AERS HHN SCH ×5 (01:18→20:15)
[2016-12-12 05:21] LABS: % BASOPHILS 0.3 % (0.0-2.0); HEMATOCRIT 25.8 % (35.0-45.0); HEMOGLOBIN 8.7 gm/dL (11.7-16.1); MEAN CORPUSCULAR HEMOGLOBIN 28.7 pg (27.0-31.0); MEAN CORPUSCULAR HGB CONC 33.6 pg (28.0-36.0)
[2016-12-12 05:40] LABS: % EOSINOPHILS 1.1 % (0.0-5.0); % LYMPHOCYTES 9.2 % (20.0-50.0); % MONOCYTES 7.8 % (2.0-10.0); % NEUTROPHILS 81.6 % (40.0-80.0); MEAN CELL VOLUME 85.4 fl (81-100); MEAN PLATELET VOLUME 9.4 fl; NEUTROPHILE ABSOLUTE 12.4 Th/cmm (1.8-8.0); PLATELET COUNT 197 Th/cmm (150-400); RED BLOOD COUNT 3.03 Mil/cmm (3.80-5.20); RED CELL DISTRIBUTION WIDTH 16.3 % (11.5-20.0)
[2016-12-12 05:51] LABS: ANION GAP 8.6 (7.0-16.0); BUN - UREA NITROGEN 24 mg/dL (7-25); CALCIUM SERUM 8.6 mg/dL (8.6-10.3); CARBON DIOXIDE 26.4 mEq/L (21.0-31.0); CHLORIDE 102 mEq/L (98-107); CREATININE - SERUM 0.6 mg/dL (0.6-1.2); GLUCOSE 308 mg/dL (70-105); SODIUM SERUM 133 mEq/L (136-145)
[2016-12-12 06:04] LABS: WHITE BLOOD COUNT 15.2 Th/cmm (4.8-10.8)
[2016-12-12] MEDS: INSULIN 70/30 100 UNITS/ML SUBQ SCH ×2 (06:36→22:02)
[2016-12-12] MEDS: Levothyroxine 0.1 Mg Tab GT SCH (06:41)
[2016-12-12] MEDS: Ferrous Sulfate 300 MG/5 ML UDC GT SCH (08:46)
[2016-12-12] MEDS: Lactobacillus Rhamnosus 10 Billion CFU Capsule PO SCH (08:46)
[2016-12-12] MEDS: Benztropine 1 MG TAB GT SCH ×2 (08:46→17:03)
[2016-12-12] MEDS: Hydrocodone/APAP 5mg/325mg Tab GT SCH (08:47)
[2016-12-12] MEDS: Levetiracetam 500 mg/5mL 5mL UDC GT SCH ×2 (08:47→21:43)
[2016-12-12] MEDS: Petrolatum (White) Oint 0.6 Oz Tube TP SCH (08:50)
[2016-12-12] MEDS: Ascorbic Acid 500 mg/5 mL UDC GT SCH (08:52)
--- NOTE | 2016-12-12 08:53 | Diagnostic Imaging Report ---
Exam: Portable chest x-ray 2 views HISTORY: Fever Findings: Portable upright examination of the chest at 1814 hours reviewed, no prior studies available for comparison. The study demonstrates congestive heart failure with superimposed left basilar infiltrate. There is evidence for ill-defined nodularity left mid chest measuring 3.[address] examination of chest recommended. Tracheostomy tube midline. The bony thorax remarkable for degenerative osteopenia. IMPRESSION: 1. Congestive heart failure 2. Left basilar pneumonia 3. 3.4 cm nodularity left mid lung CT examination of chest is recommended
[2016-12-12] MEDS: Chlorhexidine Gluconate 0.12% 15mL Mouthwash MM SCH ×2 (09:03→22:49)
--- NOTE | 2016-12-12 12:42 | Internal Medicine Prog Note ---
Internal Medicine Subjective - Subjective Service Date: 12/12/16 Patient seen and examined:: with staff Patient is:: non-verbal, non-interactive Patient Complaints of:: congestion Per staff patient has:: tolerating meds Internal Medicine Objective - Results Result Diagrams: 12/12/16 04:31 12/12/16 04:31 Recent Labs: Laboratory Last Values WBC 15.2 Th/cmm (4.8-10.8) H 12/12/16 04:31 RBC 3.03 Mil/cmm (3.80-5.20) L 12/12/16 04:31 Hgb 8.7 gm/dL (11.7-16.1) L 12/12/16 04:31 Hct 25.8 % (35.0-45.0) L 12/12/16 04:31 MCV 85.4 fl (81-100) 12/12/16 04:31 MCH 28.7 pg (27.0-31.0) 12/12/16 04:31 MCHC Differential 33.6 pg (28.0-36.0) 12/12/16 04:31 RDW 16.3 % (11.5-20.0) 12/12/16 04:31 Plt Count 197 Th/cmm (150-400) 12/12/16 04:31 MPV 9.4 fl 12/12/16 04:31 Neutrophils % 81.6 % (40.0-80.0) H 12/12/16 04:31 Band Neutrophils % 8 % (0-10) 12/11/16 04:32 Lymphocytes % 9.2 % (20.0-50.0) L 12/12/16 04:31 Monocytes % 7.8 % (2.0-10.0) 12/12/16 04:31 Eosinophils % 1.1 % (0.0-5.0) 12/12/16 04:31 Basophils % 0.3 % (0.0-2.0) 12/12/16 04:31 Neutrophils (Manual) 78 % (40-80) 12/11/16 04:32 Lymphocytes 7 % (20-50) L 12/11/16 04:32 Monocytes 4 % (2-10) 12/11/16 04:32 Eosinophils 1 % (0-5) 12/11/16 04:32 Metamyelocytes 2 % (0-0) H 12/11/16 04:32 Platelet Estimate ADEQUATE (NORMAL) 12/11/16 04:32 Platelet Morphology PLATELET CLUMPS SEEN (NORMAL) 12/11/16 04:32 Anisocytosis 1+ 12/11/16 04:32 RBC Morph Micro Appear ABNORMAL (NORMAL) 12/11/16 04:32 Specimen Source Arterial 12/11/16 07:44 Sample Site Right Radial 12/11/16 07:44 pH 7.48 (7.35-7.45) H 12/11/16 07:44 pCO2 41.0 mmHg (35.0-45.0) 12/11/16 07:44 pO2 86.0 mmHg (80.0-100.0) 12/11/16 07:44 HCO3 29.2 mEq/L (20.0-26.0) H 12/11/16 07:44 Base Excess 6.4 mEq/L (-3.0-3.0) H 12/11/16 07:44 O2 Saturation 97.0 % (92.0-100.0) 12/11/16 07:44 Terry Test Positive 12/11/16 07:44 Vent Rate 16 12/11/16 07:44 Inspired O2 30 12/11/16 07:44 Tidal Volume 500 12/11/16 07:44 PEEP 5 12/11/16 07:44 Pressure (ins/psv/peep) NA 12/11/16 07:44 Critical Value LZHANG 12/11/16 07:44 Sodium 133 mEq/L (136-145) L 12/12/16 04:31 Potassium 4.0 mEq/L (3.5-5.1) 12/12/16 04:31 Chloride 102 mEq/L (98-107) 12/12/16 04:31 Carbon Dioxide 26.4 mEq/L (21.0-31.0) 12/12/16 04:31 Anion Gap 8.6 (7.0-16.0) 12/12/16 04:31 BUN 24 mg/dL (7-25) 12/12/16 04:31 Creatinine 0.6 mg/dL (0.6-1.2) 12/12/16 04:31 Est GFR ( Amer) TNP 12/12/16 04:31 Est GFR (Non-Af Amer) TNP 12/12/16 04:31 BUN/Creatinine Ratio 40.0 12/12/16 04:31 Glucose 308 mg/dL (70-105) H 12/12/16 04:31 POC Glucose 268 MG/DL (70 - 105) H 12/12/16 11:48 Hemoglobin A1c % 7.8 % (4.0-6.0) H 12/10/16 13:00 Whole Bld Lactic Acid 2.11 mmol/L (0.60-1.99) H* 12/10/16 15:08 Calcium 8.6 mg/dL (8.6-10.3) 12/12/16 04:31 Total Bilirubin 0.4 mg/dL (0.3-1.0) 12/11/16 04:32 AST 37 U/L (13-39) 12/11/16 04:32 ALT 51 U/L (7-52) 12/11/16 04:32 Alkaline Phosphatase 94 U/L (34-104) 12/11/16 04:32 Troponin I 0.01 ng/mL (0.01-0.05) 12/10/16 13:00 Total Protein 7.4 gm/dL (6.0-8.3) 12/11/16 04:32 Albumin 3.2 gm/dL (3.7-5.3) L 12/11/16 04:32 Globulin 4.2 gm/dL 12/11/16 04:32 Albumin/Globulin Ratio 0.8 (1.0-1.8) L 12/11/16 04:32 Urine Source RANDOM 12/10/16 13:40 Urine Color STRAW 12/10/16 13:40 Urine Clarity CLEAR (CLEAR) 12/10/16 13:40 Urine pH 7.5 (4.6 - 8.0) 12/10/16 13:40 Ur Specific [place] <= 1.005 (1.005-1.030) 12/10/16 13:40 Urine Protein NEGATIVE mg/dL (NEGATIVE) 12/10/16 13:40 Urine Glucose (UA) NEGATIVE mg/dL (NEGATIVE) 12/10/16 13:40 Urine Ketones NEGATIVE mg/dL (NEGATIVE) 12/10/16 13:40 Urine Blood NEGATIVE (NEGATIVE) 12/10/16 13:40 Urine Nitrate NEGATIVE (NEGATIVE) 12/10/16 13:40 Urine Bilirubin NEGATIVE (NEGATIVE) 12/10/16 13:40 Urine Urobilinogen 0.2 E.U./dL (0.2 - 1.0) 12/10/16 13:40 Ur Leukocyte Esterase NEGATIVE (NEGATIVE) 12/10/16 13:40 Urine RBC NONE SEEN /hpf (0-5) 12/10/16 13:40 Urine WBC NONE SEEN /hpf (0-5) 12/10/16 13:40 Ur Epithelial Cells NONE SEEN /lpf (FEW) 12/10/16 13:40 Urine Bacteria NONE SEEN /hpf (NONE SEEN) 12/10/16 13:40 - Physical Exam Vitals and I&O: Vital Signs Temp 98.6 F 12/12/16 12:00 Pulse 81 12/12/16 12:00 Resp 16 12/12/16 12:00 BP 104/69 12/12/16 12:00 Pulse Ox 100 12/12/16 12:00 Intake & Output 12/11/16 12/12/16 12/12/16 18:59 06:59 18:59 Intake Total 1200 850 Output Total 1050 700 Balance 150 150 Weight (lbs) 206 lb 6 oz 207 lb 2 oz Intake: Intake, IV Amount 50 cefTRIAXone 1 gm In 50 Sodium Chloride 0.9% 50 ml @ 100 mls/hr IV Q24HR [facility] Rx#:[id number] Tube Feeding 600 600 Other 600 200 Output: Urine 1050 700 Other: # Bowel Movements 1 Stool Characteristics Soft Soft Soft Black Brown Black Green Green Active Medications: Current Medications Acetaminophen (Tylenol 650mg/20.3ml Suspension) 650 mg GT Q6HR PRN PRN Reason: Pain or Fever >101 Stop: 02/08/17 19:19 Last Admin: 12/11/16 15:23 Dose: 650 mg Acetaminophen/Hydrocodone Bitart ([place] 5mg/325mg) 1 tab GT DAILY [facility] Stop: 02/09/17 08:59 Last Admin: 12/12/16 08:47 Dose: 1 tab Acetaminophen/Hydrocodone Bitart ([place] 5mg/325mg) 1 tab GT Q6H PRN PRN Reason: Pain (Severe) Stop: 02/08/17 19:19 Last Admin: 12/11/16 21:12 Dose: 1 tab Acetylcysteine (Mucomyst 20%) 2 ml HHN Q6H [facility] Stop: 02/08/17 19:19 Last Admin: 12/12/16 07:14 Dose: 2 ml Albuterol/Ipratropium (Duoneb Neb) 3 ml HHN Q2H PRN PRN Reason: Wheezing Stop: 02/08/17 19:19 Albuterol/Ipratropium (Duoneb Neb) 3 ml HHN Q6H [facility] Stop: 02/09/17 14:14 Last Admin: 12/12/16 07:14 Dose: 3 ml Allopurinol (Zyloprim) 200 mg GT DAILY [facility] Stop: 02/09/17 08:59 Last Admin: 12/12/16 08:50 Dose: 200 mg Amlodipine Besylate (Norvasc) 5 mg GT DAILY [facility] Stop: 02/09/17 08:59 Last Admin: 12/12/16 08:51 Dose: 5 mg Ascorbic Acid (Vitamin C) 500 mg GT DAILY [facility] Stop: 02/09/17 08:59 Last Admin: 12/12/16 08:52 Dose: 500 mg Benztropine Mesylate (Cogentin) 1 mg GT BID [facility] Stop: 02/09/17 08:59 Last Admin: 12/12/16 08:46 Dose: 1 mg Carbidopa/Levodopa (Sinemet 25mg-100 Mg) 1 tab GT DAILY [facility] Stop: 02/09/17 08:59 Last Admin: 12/12/16 08:47 Dose: 1 tab Chlorhexidine Gluconate (Peridex) 15 ml MM 0800,2000 [facility] Stop: 02/08/17 19:59 Last Admin: 12/12/16 09:03 Dose: 15 ml Clonazepam (Klonopin) 0.5 mg GT BID [facility] PRN Reason: Protocol Stop: 02/09/17 08:59 Last Admin: 12/12/16 08:46 Dose: 0.5 mg Dextrose (Glutose 40%) 18.75 gm PO PRN PRN PRN Reason: Blood Glucose less than 70 Stop: 02/08/17 19:19 Dextrose (D50w) 50 ml IVP PRN PRN PRN Reason: hypoglycemia Stop: 02/09/17 08:18 Docusate Sodium (Colace) 250 mg PO BID [facility] Stop: 02/09/17 08:59 Last Admin: 12/12/16 08:46 Dose: 250 mg Famotidine (Pepcid) 20 mg GT DAILY [facility] Stop: 02/09/17 08:59 Last Admin: 12/12/16 08:47 Dose: 20 mg Ferrous Sulfate (Iron) 330 mg GT DAILY [facility] Stop: 02/09/17 08:59 Last Admin: 12/12/16 08:46 Dose: 330 mg Glipizide (Glucotrol) 5 mg GT BID [facility] Stop: 02/09/17 08:59 Last Admin: 12/12/16 08:47 Dose: 5 mg Glucagon (Glucagen) 1 mg IM PRN PRN PRN Reason: Blood Glucose less than 70 Stop: 02/08/17 19:19 Guaifenesin/Dextromethorphan (Robitussin Dm) 5 ml GT Q6H PRN PRN Reason: Cough Stop: 02/08/17 19:19 Last Admin: 12/11/16 07:01 Dose: 5 ml Heparin Sodium (Porcine) (Heparin) 5,000 units SUBQ Q12HR [facility] Stop: 02/08/17 20:59 Last Admin: 12/12/16 08:52 Dose: 5,000 units Ceftriaxone Sodium 1 gm/ (Sodium Chloride) 50 mls @ 100 mls/hr IV Q24HR [facility] Stop: 02/08/17 19:19 Last Infusion: 12/11/16 20:20 Dose: Infused Sodium Chloride (Nacl 0.9%) 1,000 mls @ 50 mls/hr IV .Q20H [facility] Stop: 02/08/17 19:19 Last Admin: 12/11/16 14:20 Dose: 50 mls/hr Insulin Aspart (Novolog Insulin Sliding Scale) 0 units SUBQ Q6HR [facility] PRN Reason: Protocol Stop: 02/08/17 19:19 Last Admin: 12/12/16 11:57 Dose: 6 units Insulin Human Isoph/Insulin Regular (Novolin 70/30) 22 units SUBQ HS [facility] PRN Reason: Protocol Stop: 02/08/17 20:59 Last Admin: 12/11/16 21:00 Dose: 22 units Insulin Human Isoph/Insulin Regular (Novolin 70/30) 45 units SUBQ QDAC [facility] PRN Reason: Protocol Stop: 02/09/17 07:29 Last Admin: 12/12/16 06:36 Dose: 45 units Lactobacillus Rhamnosus (Culturelle) 1 each PO DAILY [facility] Stop: 02/10/17 08:59 Last Admin: 12/12/16 08:46 Dose: 1 each Lactulose (Cephulac) 30 gm GT DAILY PRN PRN Reason: BOWEL MANAGEMENT Stop: 02/08/17 19:19 Levetiracetam (Keppra) 1,000 mg GT Q12HR [facility] Stop: 02/08/17 20:59 Last Admin: 12/12/16 08:47 Dose: 1,000 mg Levothyroxine Sodium (Synthroid) 0.1 mg GT QDAC [facility] Stop: 02/09/17 07:29 Last Admin: 12/12/16 06:41 Dose: 0.1 mg Lisinopril (Zestril) 20 mg GT DAILY [facility] Stop: 02/09/17 08:59 Last Admin: 12/12/16 08:50 Dose: 20 mg Magnesium Citrate (Citroma) 17.5 gm PO Q12HR PRN PRN Reason: Constipation Stop: 02/08/17 19:19 Metoclopramide HCl (Reglan) 10 mg GT Q6HR [facility] Stop: 02/08/17 19:19 Last Admin: 12/12/16 11:57 Dose: 10 mg Miscellaneous (Probiotic Screen) 1 ea MC PRN PRN PRN Reason: PROTOCOL Stop: 02/09/17 10:39 Multivitamins/Vitamin C (Theragran) 5 ml GT DAILY [facility] Stop: 02/09/17 08:59 Last Admin: 12/11/16 09:30 Dose: 5 ml Ondansetron HCl (Zofran) 4 mg IV Q4H PRN PRN Reason: Nausea / Vomiting Stop: 02/08/17 19:19 Ondansetron HCl (Zofran) 4 mg IV Q8H PRN PRN Reason: Nausea / Vomiting Stop: 02/09/17 08:18 Petrolatum (Vaseline Oint) 1 appl TP DAILY [facility] Stop: 02/09/17 08:59 Last Admin: 12/12/16 08:50 Dose: 1 appl Sucralfate (Carafate) 1 gm GT QID [facility] Stop: 02/08/17 20:59 Last Admin: 12/12/16 11:59 Dose: 1 gm Tramadol HCl (Ultram) 50 mg GT Q6H PRN PRN Reason: Pain (Moderate) Stop: 02/08/17 19:19 Zinc Sulfate (Zinc Sulfate) 220 mg GT DAILY [facility] Stop: 02/09/17 08:59 Last Admin: 12/12/16 08:46 Dose: 220 mg General: weak, obtunded HEENT: NC/AT, PERRLA Neck: Supple, No JVD, + trach Lungs: ronchi Cardiovascular: RRR, Normal S1, Normal S2, without murmur Abdomen: soft, non-tender Neurological: alert - Procedures Procedures: Procedures Procedure Code Date AIRWAYS SURGICAL PROCEDURE 54215 03/03/16 CHANGE GASTROSTOMY TUBE 57869 06/06/13 CONTINUOUS INVASIVE MECHANICAL VENTILATION <96 CONSEC HRS 96.71 02/02/13 CONTINUOUS INVASIVE MECHANICAL VENTILATION =/>96 CONSEC HRS 96.72 06/06/13 [place] [id number] 03/03/16 IMMUNIZATION ADMIN [id number] 03/03/16 INFLUENZA VACCINATION 99.52 02/02/13 INSERT NON-TUNNEL CV CATH [id number] 03/03/16 INSERT PICC CATH [id number] 02/02/13 INSERTION OF INFUSION DEV INTO SUP VENA CAVA, PERC APPROACH [id number] 03/03/16 INTRODUCTION OF SERUM/TOX/VACCINE INTO MUSCLE, PERC APPROACH [id number] 03/03/16 OTHER GASTROSTOMY 43.19 06/03/10 REPLACE GASTROSTOMY TUBE 97.02 06/06/13 RESPIRATORY VENTILATION, 24-96 CONSECUTIVE HOURS [id number] 12/10/16 RESPIRATORY VENTILATION, GREATER THAN 96 CONSECUTIVE HOURS [id number] 03/03/16 VACCINATION NEC 99.55 02/02/13 VENOUS CATHETERIZATION NEC 38.93 02/02/13 VENT MGMT INPAT INIT DAY 03/03/16 VENT MGMT INPAT SUBQ DAY 70258 03/03/16 Internal Medicine Assmt/Plan - Assessment Assessment: Lactic Acidosis Fever Sepsis Uncontrolled Glucose Level Acute on chronic respiratory failure Vdrf seizure decubitus ulcer morbid obesity parkinsons dm2 - Plan Plan: continue ivabx id consult vent support monitor glucose montor for fever
[2016-12-12] MEDS: Multivitamin Tab GT SCH (14:47)
[2016-12-12] MEDS: Sodium Chloride 0.9% 1,000 ML IV SCH (14:53)
[2016-12-12] MEDS: Meropenem 500 MG in Sodium Chloride 0.9% 100 ML IV SCH (17:03)
[2016-12-13] MEDS: Albuterol/Ipratropium Neb 3 ML AERS HHN SCH ×4 (00:31→19:14)
[2016-12-13] MEDS: INSULIN ASPART SLIDING SCALE 100 UNITS/ML UNIT SUBQ SCH ×4 (00:54→18:06)
[2016-12-13] MEDS: Meropenem 500 MG in Sodium Chloride 0.9% 100 ML IV SCH ×2 (04:50→17:00)
[2016-12-13 05:20] LABS: HEMATOCRIT 24.7 % (35.0-45.0); HEMOGLOBIN 8.2 gm/dL (11.7-16.1); MEAN CELL VOLUME 85.2 fl (81-100); MEAN CORPUSCULAR HEMOGLOBIN 28.4 pg (27.0-31.0); MEAN CORPUSCULAR HGB CONC 33.3 pg (28.0-36.0); PLATELET COUNT 223 Th/cmm (150-400); RED CELL DISTRIBUTION WIDTH 16.4 % (11.5-20.0)
[2016-12-13 05:28] LABS: ANION GAP 8.4 (7.0-16.0); BUN - UREA NITROGEN 20 mg/dL (7-25); BUN/CREATININE RATIO 33.3; CALCIUM SERUM 8.6 mg/dL (8.6-10.3); CARBON DIOXIDE 25.6 mEq/L (21.0-31.0); CHLORIDE 106 mEq/L (98-107); CREATININE - SERUM 0.6 mg/dL (0.6-1.2); GLUCOSE 275 mg/dL (70-105); SODIUM SERUM 136 mEq/L (136-145); WHITE BLOOD COUNT 14.9 Th/cmm (4.8-10.8)
[2016-12-13] MEDS: INSULIN 70/30 100 UNITS/ML SUBQ SCH ×2 (06:43→21:40)
[2016-12-13 07:51] LABS: BAND NEUTROPHILE 4 % (0-10); EOSINOPHIL 1 % (0-5); METAMYELOCYTE 4 % (0-0); MYELOCYTE 1 %; NEUTROPHILS 68 % (40-80); PLATELET ESTIMATE ADEQUATE (NORMAL); PLATELET MORPHOLOGY PLATELET CLUMPS SEEN (NORMAL); TOTAL CELLS COUNTED 100
[2016-12-13] MEDS: Levothyroxine 0.1 Mg Tab GT SCH (08:25)
[2016-12-13] MEDS: Chlorhexidine Gluconate 0.12% 15mL Mouthwash MM SCH ×2 (08:25→21:45)
[2016-12-13] MEDS: Ferrous Sulfate 300 MG/5 ML UDC GT SCH (09:21)
[2016-12-13] MEDS: Lactobacillus Rhamnosus 10 Billion CFU Capsule PO SCH (09:22)
[2016-12-13] MEDS: Benztropine 1 MG TAB GT SCH ×2 (09:22→17:30)
[2016-12-13] MEDS: Hydrocodone/APAP 5mg/325mg Tab GT SCH (09:22)
[2016-12-13] MEDS: Ascorbic Acid 500 mg/5 mL UDC GT SCH (09:25)
[2016-12-13] MEDS: Levetiracetam 500 mg/5mL 5mL UDC GT SCH ×2 (09:26→21:43)
[2016-12-13] MEDS: Petrolatum (White) Oint 0.6 Oz Tube TP SCH (09:26)
[2016-12-13] MEDS: Multivitamin Tab GT SCH (09:26)
--- NOTE | 2016-12-13 15:01 | Internal Medicine Prog Note ---
Internal Medicine Subjective - Subjective Service Date: 12/13/16 Patient is:: non-verbal, non-interactive Patient Complaints of:: congestion Per staff patient has:: tolerating meds Internal Medicine Objective - Results Result Diagrams: 12/13/16 05:00 12/13/16 05:00 Recent Labs: Laboratory Last Values WBC 14.9 Th/cmm (4.8-10.8) H 12/13/16 05:00 RBC 2.90 Mil/cmm (3.80-5.20) L 12/13/16 05:00 Hgb 8.2 gm/dL (11.7-16.1) L 12/13/16 05:00 Hct 24.7 % (35.0-45.0) L 12/13/16 05:00 MCV 85.2 fl (81-100) 12/13/16 05:00 MCH 28.4 pg (27.0-31.0) 12/13/16 05:00 MCHC Differential 33.3 pg (28.0-36.0) 12/13/16 05:00 RDW 16.4 % (11.5-20.0) 12/13/16 05:00 Plt Count 223 Th/cmm (150-400) 12/13/16 05:00 MPV 8.0 fl 12/13/16 05:00 Neutrophils % 81.6 % (40.0-80.0) H 12/12/16 04:31 Band Neutrophils % 4 % (0-10) 12/13/16 05:00 Lymphocytes % 9.2 % (20.0-50.0) L 12/12/16 04:31 Monocytes % 7.8 % (2.0-10.0) 12/12/16 04:31 Eosinophils % 1.1 % (0.0-5.0) 12/12/16 04:31 Basophils % 0.3 % (0.0-2.0) 12/12/16 04:31 Neutrophils (Manual) 68 % (40-80) 12/13/16 05:00 Lymphocytes 13 % (20-50) L 12/13/16 05:00 Monocytes 9 % (2-10) 12/13/16 05:00 Eosinophils 1 % (0-5) 12/13/16 05:00 Metamyelocytes 4 % (0-0) H 12/13/16 05:00 Myelocytes 1 % 12/13/16 05:00 Platelet Estimate ADEQUATE (NORMAL) 12/13/16 05:00 Platelet Morphology PLATELET CLUMPS SEEN (NORMAL) 12/13/16 05:00 Anisocytosis 1+ 12/11/16 04:32 RBC Morph Micro Appear NORMAL (NORMAL) 12/13/16 05:00 Specimen Source Arterial 12/11/16 07:44 Sample Site Right Radial 12/11/16 07:44 pH 7.48 (7.35-7.45) H 12/11/16 07:44 pCO2 41.0 mmHg (35.0-45.0) 12/11/16 07:44 pO2 86.0 mmHg (80.0-100.0) 12/11/16 07:44 HCO3 29.2 mEq/L (20.0-26.0) H 12/11/16 07:44 Base Excess 6.4 mEq/L (-3.0-3.0) H 12/11/16 07:44 O2 Saturation 97.0 % (92.0-100.0) 12/11/16 07:44 Terry Test Positive 12/11/16 07:44 Vent Rate 16 12/11/16 07:44 Inspired O2 30 12/11/16 07:44 Tidal Volume 500 12/11/16 07:44 PEEP 5 12/11/16 07:44 Pressure (ins/psv/peep) NA 12/11/16 07:44 Critical Value LZHANG 12/11/16 07:44 Sodium 136 mEq/L (136-145) 12/13/16 05:00 Potassium 4.0 mEq/L (3.5-5.1) 12/13/16 05:00 Chloride 106 mEq/L (98-107) 12/13/16 05:00 Carbon Dioxide 25.6 mEq/L (21.0-31.0) 12/13/16 05:00 Anion Gap 8.4 (7.0-16.0) 12/13/16 05:00 BUN 20 mg/dL (7-25) 12/13/16 05:00 Creatinine 0.6 mg/dL (0.6-1.2) 12/13/16 05:00 Est GFR ( Amer) TNP 12/13/16 05:00 Est GFR (Non-Af Amer) TNP 12/13/16 05:00 BUN/Creatinine Ratio 33.3 12/13/16 05:00 Glucose 275 mg/dL (70-105) H 12/13/16 05:00 POC Glucose 241 MG/DL (70 - 105) H 12/13/16 12:04 Hemoglobin A1c % 7.8 % (4.0-6.0) H 12/10/16 13:00 Whole Bld Lactic Acid 2.11 mmol/L (0.60-1.99) H* 12/10/16 15:08 Calcium 8.6 mg/dL (8.6-10.3) 12/13/16 05:00 Total Bilirubin 0.4 mg/dL (0.3-1.0) 12/11/16 04:32 AST 37 U/L (13-39) 12/11/16 04:32 ALT 51 U/L (7-52) 12/11/16 04:32 Alkaline Phosphatase 94 U/L (34-104) 12/11/16 04:32 Troponin I 0.01 ng/mL (0.01-0.05) 12/10/16 13:00 Total Protein 7.4 gm/dL (6.0-8.3) 12/11/16 04:32 Albumin 3.2 gm/dL (3.7-5.3) L 12/11/16 04:32 Globulin 4.2 gm/dL 12/11/16 04:32 Albumin/Globulin Ratio 0.8 (1.0-1.8) L 12/11/16 04:32 Urine Source RANDOM 12/10/16 13:40 Urine Color STRAW 12/10/16 13:40 Urine Clarity CLEAR (CLEAR) 12/10/16 13:40 Urine pH 7.5 (4.6 - 8.0) 12/10/16 13:40 Ur Specific [place] <= 1.005 (1.005-1.030) 12/10/16 13:40 Urine Protein NEGATIVE mg/dL (NEGATIVE) 12/10/16 13:40 Urine Glucose (UA) NEGATIVE mg/dL (NEGATIVE) 12/10/16 13:40 Urine Ketones NEGATIVE mg/dL (NEGATIVE) 12/10/16 13:40 Urine Blood NEGATIVE (NEGATIVE) 12/10/16 13:40 Urine Nitrate NEGATIVE (NEGATIVE) 12/10/16 13:40 Urine Bilirubin NEGATIVE (NEGATIVE) 12/10/16 13:40 Urine Urobilinogen 0.2 E.U./dL (0.2 - 1.0) 12/10/16 13:40 Ur Leukocyte Esterase NEGATIVE (NEGATIVE) 12/10/16 13:40 Urine RBC NONE SEEN /hpf (0-5) 12/10/16 13:40 Urine WBC NONE SEEN /hpf (0-5) 12/10/16 13:40 Ur Epithelial Cells NONE SEEN /lpf (FEW) 12/10/16 13:40 Urine Bacteria NONE SEEN /hpf (NONE SEEN) 12/10/16 13:40 - Physical Exam Vitals and I&O: Vital Signs Temp 98.3 F 12/13/16 13:00 Pulse 76 12/13/16 13:12 Resp 16 12/13/16 13:00 BP 114/50 12/13/16 13:00 Pulse Ox 100 12/13/16 13:12 Intake & Output 12/12/16 12/13/16 12/13/16 18:59 06:59 18:59 Intake Total 2200 1860.833 Output Total 550 500 Balance 1650 1360.833 Weight (lbs) 212 lb 9 oz 206 lb Intake: Intake, IV Amount 1100 1060.833 Meropenem 500 mg In 100 100 Sodium Chloride 0.9% 100 ml @ 100 mls/hr IV Q12H [facility] Rx#:[id number] Sodium Chloride 0.9% 1, 1000 710.833 000 ml @ 50 mls/hr IV . Q20H [facility] Rx#:[id number] Vancomycin HCl 1.25 gm In 250 Sodium Chloride 0.9% 250 ml @ 165 mls/hr IV Q24H [facility] Rx#:[id number] Tube Feeding 600 600 Other 500 200 Output: Urine 550 500 Other: # Bowel Movements 1 Stool Characteristics Soft Liquid Black Brown Green Active Medications: Current Medications Acetaminophen (Tylenol 650mg/20.3ml Suspension) 650 mg GT Q6HR PRN PRN Reason: Pain or Fever >101 Stop: 02/08/17 19:19 Last Admin: 12/12/16 15:41 Dose: 650 mg Acetaminophen/Hydrocodone Bitart (Racine 5mg/325mg) 1 tab GT DAILY [facility] Stop: 02/09/17 08:59 Last Admin: 12/13/16 09:22 Dose: 1 tab Acetaminophen/Hydrocodone Bitart (Racine 5mg/325mg) 1 tab GT Q6H PRN PRN Reason: Pain (Severe) Stop: 02/08/17 19:19 Last Admin: 12/11/16 21:12 Dose: 1 tab Acetylcysteine (Mucomyst 20%) 2 ml HHN Q6H [facility] Stop: 02/08/17 19:19 Last Admin: 12/13/16 13:12 Dose: 2 ml Albuterol/Ipratropium (Duoneb Neb) 3 ml HHN Q2H PRN PRN Reason: Wheezing Stop: 02/08/17 19:19 Albuterol/Ipratropium (Duoneb Neb) 3 ml HHN Q6H [facility] Stop: 02/09/17 14:14 Last Admin: 12/13/16 13:29 Dose: 3 ml Allopurinol (Zyloprim) 200 mg GT DAILY [facility] Stop: 02/09/17 08:59 Last Admin: 12/13/16 09:21 Dose: 200 mg Amlodipine Besylate (Norvasc) 5 mg GT DAILY [facility] Stop: 02/09/17 08:59 Last Admin: 12/13/16 09:22 Dose: 5 mg Ascorbic Acid (Vitamin C) 500 mg GT DAILY [facility] Stop: 02/09/17 08:59 Last Admin: 12/13/16 09:25 Dose: 500 mg Benztropine Mesylate (Cogentin) 1 mg GT BID [facility] Stop: 02/09/17 08:59 Last Admin: 12/13/16 09:22 Dose: 1 mg Carbidopa/Levodopa (Sinemet 25mg-100 Mg) 1 tab GT DAILY [facility] Stop: 02/09/17 08:59 Last Admin: 12/13/16 09:25 Dose: 1 tab Chlorhexidine Gluconate (Peridex) 15 ml MM 0800,2000 [facility] Stop: 02/08/17 19:59 Last Admin: 12/13/16 08:25 Dose: 15 ml Clonazepam (Klonopin) 0.5 mg GT BID [facility] PRN Reason: Protocol Stop: 02/09/17 08:59 Last Admin: 12/13/16 09:22 Dose: 0.5 mg Dextrose (Glutose 40%) 18.75 gm PO PRN PRN PRN Reason: Blood Glucose less than 70 Stop: 02/08/17 19:19 Dextrose (D50w) 50 ml IVP PRN PRN PRN Reason: hypoglycemia Stop: 02/09/17 08:18 Docusate Sodium (Colace) 250 mg PO BID [facility] Stop: 02/09/17 08:59 Last Admin: 12/13/16 09:26 Dose: Not Given Famotidine (Pepcid) 20 mg GT DAILY [facility] Stop: 02/09/17 08:59 Last Admin: 12/13/16 09:26 Dose: 20 mg Ferrous Sulfate (Iron) 330 mg GT DAILY [facility] Stop: 02/09/17 08:59 Last Admin: 12/13/16 09:21 Dose: 330 mg Glipizide (Glucotrol) 5 mg GT BID [facility] Stop: 02/09/17 08:59 Last Admin: 12/13/16 09:22 Dose: 5 mg Glucagon (Glucagen) 1 mg IM PRN PRN PRN Reason: Blood Glucose less than 70 Stop: 02/08/17 19:19 Guaifenesin/Dextromethorphan (Robitussin Dm) 5 ml GT Q6H PRN PRN Reason: Cough Stop: 02/08/17 19:19 Last Admin: 12/11/16 07:01 Dose: 5 ml Heparin Sodium (Porcine) (Heparin) 5,000 units SUBQ Q12HR [facility] Stop: 02/08/17 20:59 Last Admin: 12/13/16 09:27 Dose: 5,000 units Sodium Chloride (Nacl 0.9%) 1,000 mls @ 50 mls/hr IV .Q20H [facility] Stop: 02/08/17 19:19 Last Infusion: 12/13/16 05:06 Dose: 50 mls/hr Meropenem 500 mg/ Sodium (Chloride) 100 mls @ 100 mls/hr IV Q12H [facility] Stop: 02/10/17 17:29 Last Infusion: 12/13/16 06:59 Dose: Infused Vancomycin HCl 1.25 gm/ Sodium (Chloride) 250 mls @ 165 mls/hr IV Q24H [facility] Stop: 02/10/17 17:59 Last Infusion: 12/12/16 19:20 Dose: Infused Insulin Aspart (Novolog Insulin Sliding Scale) 0 units SUBQ Q6HR [facility] PRN Reason: Protocol Stop: 02/08/17 19:19 Last Admin: 12/13/16 12:32 Dose: 4 units Insulin Human Isoph/Insulin Regular (Novolin 70/30) 22 units SUBQ HS [facility] PRN Reason: Protocol Stop: 02/08/17 20:59 Last Admin: 12/12/16 22:02 Dose: 22 units Insulin Human Isoph/Insulin Regular (Novolin 70/30) 45 units SUBQ QDAC [facility] PRN Reason: Protocol Stop: 02/09/17 07:29 Last Admin: 12/13/16 06:43 Dose: 45 units Lactobacillus Rhamnosus (Culturelle) 1 each PO DAILY [facility] Stop: 02/10/17 08:59 Last Admin: 12/13/16 09:22 Dose: 1 each Lactulose (Cephulac) 30 gm GT DAILY PRN PRN Reason: BOWEL MANAGEMENT Stop: 02/08/17 19:19 Last Admin: 12/12/16 23:03 Dose: 30 gm Levetiracetam (Keppra) 1,000 mg GT Q12HR [facility] Stop: 02/08/17 20:59 Last Admin: 12/13/16 09:26 Dose: 1,000 mg Levothyroxine Sodium (Synthroid) 0.1 mg GT QDAC [facility] Stop: 02/09/17 07:29 Last Admin: 12/13/16 08:25 Dose: 0.1 mg Lisinopril (Zestril) 20 mg GT DAILY [facility] Stop: 02/09/17 08:59 Last Admin: 12/13/16 09:27 Dose: 20 mg Magnesium Citrate (Citroma) 17.5 gm PO Q12HR PRN PRN Reason: Constipation Stop: 02/08/17 19:19 Metoclopramide HCl (Reglan) 10 mg GT Q6HR [facility] Stop: 02/08/17 19:19 Last Admin: 12/13/16 12:31 Dose: 10 mg Miscellaneous (Probiotic Screen) 1 ea MC PRN PRN PRN Reason: PROTOCOL Stop: 02/09/17 10:39 Miscellaneous (Vancomycin Iv Per Pharmacy) 1 ea MC PRN [facility] Stop: 02/10/17 16:29 Multivitamins/Vitamin C (Theragran) 1 tab GT DAILY [facility] Stop: 02/10/17 14:59 Last Admin: 12/13/16 09:26 Dose: 1 tab Ondansetron HCl (Zofran) 4 mg IV Q8H PRN PRN Reason: Nausea / Vomiting Stop: 02/09/17 08:18 Petrolatum (Vaseline Oint) 1 appl TP DAILY [facility] Stop: 02/09/17 08:59 Last Admin: 12/13/16 09:26 Dose: 1 appl Sucralfate (Carafate) 1 gm GT QID [facility] Stop: 02/08/17 20:59 Last Admin: 12/13/16 12:31 Dose: 1 gm Tramadol HCl (Ultram) 50 mg GT Q6H PRN PRN Reason: Pain (Moderate) Stop: 02/08/17 19:19 Zinc Sulfate (Zinc Sulfate) 220 mg GT DAILY [facility] Stop: 02/09/17 08:59 Last Admin: 12/13/16 09:22 Dose: 220 mg General: weak, obtunded HEENT: NC/AT, PERRLA Neck: Supple, No JVD, + trach Lungs: ronchi Cardiovascular: RRR, Normal S1, Normal S2, without murmur Abdomen: soft, non-tender Neurological: alert - Procedures Procedures: Procedures Procedure Code Date AIRWAYS SURGICAL PROCEDURE 23746 03/03/16 CHANGE GASTROSTOMY TUBE 48230 06/06/13 CONTINUOUS INVASIVE MECHANICAL VENTILATION <96 CONSEC HRS 96.71 02/02/13 CONTINUOUS INVASIVE MECHANICAL VENTILATION =/>96 CONSEC HRS 96.72 06/06/13 [place] [id number] 03/03/16 IMMUNIZATION ADMIN 32050 03/03/16 INFLUENZA VACCINATION 99.52 02/02/13 INSERT NON-TUNNEL CV CATH 75895 03/03/16 INSERT PICC CATH 25253 02/02/13 INSERTION OF INFUSION DEV INTO SUP VENA CAVA, PERC APPROACH [id number] 03/03/16 INTRODUCTION OF SERUM/TOX/VACCINE INTO MUSCLE, PERC APPROACH [id number] 03/03/16 OTHER GASTROSTOMY 43.19 06/03/10 REPLACE GASTROSTOMY TUBE 97.02 06/06/13 RESPIRATORY VENTILATION, 24-96 CONSECUTIVE HOURS [id number] 12/10/16 RESPIRATORY VENTILATION, GREATER THAN 96 CONSECUTIVE HOURS [id number] 03/03/16 VACCINATION NEC 99.55 02/02/13 VENOUS CATHETERIZATION NEC 38.93 02/02/13 VENT MGMT INPAT INIT DAY 94276 16 VENT MGMT INPAT SUBQ DAY 03/03/16 Internal Medicine Assmt/Plan - Assessment Assessment: Lactic Acidosis PSEUDOMONAS sputum Fever Sepsis Uncontrolled Glucose Level Acute on chronic respiratory failure Vdrf seizure decubitus ulcer morbid obesity parkinsons dm2 - Plan Plan: continue ivabx vent support monitor glucose montor for fever Nutritional Asmnt/Malnutr-PDOC - Dietary Evaluation Malnutrition Findings (Please click <Entered> for more info): Nutritional Asmnt/Malnutrition Start: 12/12/16 10: 48 Text: Status: Complete Freq: Document 12/12/16 15:50 [facility] (Rec: 12/12/16 16:56 [facility] [id number]) Nutritional Asmnt/Malnutrition Patient General Information Nutritional Screening Consult Diagnosis Rule out sepsis, lactic acidosis, uncontrolled glucose level Pertinent Medical Hx/Surgical Hx Chronic hydrocephalus, seizures, VDRF, previous pneumonia, decubitus ulceration, morbid obesity, Parkinson's disease, DM2 Subjective Information Nutrition Consult for sacral wound received and completed. Pt is a 81-year-old female from [facility] admitted with chief complaint of fever for 3 days. Pt has tracheostomy to ventilator; unable to provide hx. Pt appears well nourished with no signs of muscle or fat depletion. RD verified Diabetisource AC infusing at 50 ml/hr during time of visit. Current Diet Order/ Nutrition Support Diabetisource AC at 50 ml/hr = 1440kcal, 72gm protein, 982 ml free water Patient / S.O Can't verbalize diet edu Pertinent Medications Vitamin C, Cetriaxone Sodium, Colace, Pepcid, Iron, Glucotrol, Novolog, Novolin 70 /30, Culturelle, Replan, Theragran, NaCl 0.9%, Zinc Sulfate Pertinent Labs (12/10) Glucose 356H, A1C 7.8H, (12/12) Na 133L, Glucose 308H, POC Glucose 268H-287H Nutritional Hx/Data Height 4 ft 11 in Height (Calculated Centimeters) 149.9 Current Weight (lbs) 207 lb 2 oz Weight (Calculated Kilograms) 94.0 Weight (Calculated Grams) 51062.3 [place] Body Weight 97.5 % [place] Body Weight 212 Weight Status Morbidly Obese GI Symptoms GI Symptoms None Difficult in: Chewing Swallowing Food Allergies No Usual diet at home Diabetisource AC at 60 ml/hr x 20 hours between 4392-9862, 250 ml water Q6 Skin Integrity/Comment: Germán 11. Old scar and healing decubitus ulcer to sacral-coccygeal area. Estimated Nutritional Goals BEE in Kcals: Using Current wt Calories/Kcals/Kg Based on current wt 94.1 kg with consideration of obesity, wound, vent Kcals Calculated 6596-1682 kcals/day ([place] Jeor x 1.2-1.3) Protein: Using Current wt Protein g/kg: Based on current wt 94.1 kg with consideration of obesity, wound, vent Protein Calculated 94-122 gm/day (1-1.3 gm/kg) Fluid: ml 1701-8275 ml/day (1 ml/kcal) Nutritional Problem 1. Problem Problem Increased protein needs related to Etiology altered skin integrity as evidenced by Signs/Symptoms: decubitus ulcer to sacral- coccygeal area, per RN notes. Malnutrition Alert Protein-Calorie Malnutrition N/A Is there a minimum of two criteria No selected? Query Text:Check all the applicable criteria. A minimum of two criteria are recommended for diagnosis of either severe or non-severe malnutrition. Malnutrition Related to Morbid Obesity Malnutrition related to morbid obesity BMI> or equal to 40 Query Text:(Any 1 Criteria met) Malnutrition related to morbid obesity Yes Intervention/Recommendation Comments 1. Recommend increase Diabetisource AC to goal rate of 60 ml/hr to provide 1728 kcals, 86 gm protein, and 1178 ml free water per day. 2. Recommend one packet of Prosource daily via PEG to provide additional 15 gm protein to better meet estimated protein needs. Expected Outcomes/Goals Expected Outcomes/Goals Provide pt with 100% of estimated nutritional needs to promote wound healing. Physician Parameters for PEM Serum Albumin (g/dl) 3.1 - 3.4 (Mild)
[2016-12-13] MEDS ORDERED: Amikacin 500 mg in D5W 100mL (Q24HR) IV ONE (21:00)
--- NOTE | 2016-12-13 21:28 | Consultation ---
DATE OF CONSULTATION: 12/12/2016 PRIMARY CARE PHYSICIAN: Dr. Garza. INDICATION: This is an 81-year-old female who was brought to the hospital because of leukocytosis. HISTORY OF PRESENT ILLNESS: The patient is known to have hypertension and CVA. She was found to have white count 25,000 in the nursing facility, and the patient came to the ER, unable to provide any meaningful history. Old chart reviewed and antibiotic adjusted. The patient's examination ____ . PAST MEDICAL HISTORY: COPD, vent dependence, epilepsy, hydrocephalus obstructive, seizures, recurrent cellulitis, hypertension, hypothyroidism, TIA, type 2 diabetes, and recurrent UTI. History of CVA. REVIEW OF SYSTEMS: Unable to obtain. SOCIAL HISTORY: Nonsmoker. PHYSICAL EXAMINATION: GENERAL: Obtunded. VITAL SIGNS: Temperature 98.9, pulse 89, respirations 16, and blood pressure 103/56. HEENT: Mild pallor, no icterus or plaque. NECK: Supple. LUNGS: Breath sounds bilateral vesicular. CARDIOVASCULAR: S1, S2. ABDOMEN: Soft, bowel sounds present. NODES: No thyroid and no cervical lymph nodes. LABORATORY DATA: White count is 15,000, hemoglobin is 8.7, and platelets 197,000. UA negative. Chest x-ray reviewed and shows low-volume lungs with bilateral pulmonary densities, atelectasis, and infiltrate. DIAGNOSES: 1. Respiratory insufficiency, supplemental oxygen. 2. Pneumonia. 3. History of cerebrovascular accident, epilepsy. PLAN: The patient was started on broad-spectrum antibiotics, meropenem, and vancomycin. We will discontinue other antibiotics. Sputum culture. Rest of the care as ordered in CPOE. Thank you, Dr. Garza, for this consultation. JOB# [id number]
[2016-12-13] MEDS ORDERED: Amikacin 250 mg/mL 2mL Vial IV ONE (22:48)
[2016-12-14] MEDS: Sodium Chloride 0.9% 1,000 ML IV SCH (00:39)
[2016-12-14] MEDS: INSULIN ASPART SLIDING SCALE 100 UNITS/ML UNIT SUBQ SCH ×5 (00:41→23:42)
[2016-12-14] MEDS: Albuterol/Ipratropium Neb 3 ML AERS HHN SCH ×4 (02:15→19:23)
[2016-12-14 05:38] LABS: % BASOPHILS 0.4 % (0.0-2.0); % EOSINOPHILS 2.5 % (0.0-5.0); % LYMPHOCYTES 13.9 % (20.0-50.0); % MONOCYTES 7.1 % (2.0-10.0); % NEUTROPHILS 76.1 % (40.0-80.0); HEMATOCRIT 26.3 % (35.0-45.0); HEMOGLOBIN 8.8 gm/dL (11.7-16.1); MEAN CELL VOLUME 85.5 fl (81-100); MEAN CORPUSCULAR HEMOGLOBIN 28.4 pg (27.0-31.0); MEAN CORPUSCULAR HGB CONC 33.2 pg (28.0-36.0); NEUTROPHILE ABSOLUTE 10.7 Th/cmm (1.8-8.0); PLATELET COUNT 256 Th/cmm (150-400); RED BLOOD COUNT 3.08 Mil/cmm (3.80-5.20); RED CELL DISTRIBUTION WIDTH 15.9 % (11.5-20.0)
[2016-12-14 06:02] LABS: ANION GAP 10.2 (7.0-16.0); BUN - UREA NITROGEN 23 mg/dL (7-25); BUN/CREATININE RATIO 38.3; CALCIUM SERUM 8.7 mg/dL (8.6-10.3); CARBON DIOXIDE 24.7 mEq/L (21.0-31.0); CHLORIDE 106 mEq/L (98-107); CREATININE - SERUM 0.6 mg/dL (0.6-1.2); GLUCOSE 219 mg/dL (70-105); POTASSIUM SERUM 3.9 mEq/L (3.5-5.1); SODIUM SERUM 137 mEq/L (136-145)
[2016-12-14] MEDS: Meropenem 500 MG in Sodium Chloride 0.9% 100 ML IV SCH ×2 (06:22→16:30)
[2016-12-14] MEDS: INSULIN 70/30 100 UNITS/ML SUBQ SCH ×2 (08:00→20:10)
[2016-12-14] MEDS: Chlorhexidine Gluconate 0.12% 15mL Mouthwash MM SCH ×2 (08:25→20:06)
[2016-12-14] MEDS: Benztropine 1 MG TAB GT SCH ×2 (09:20→16:23)
[2016-12-14] MEDS: Lactobacillus Rhamnosus 10 Billion CFU Capsule PO SCH (09:20)
[2016-12-14] MEDS: Multivitamin Tab GT SCH (09:20)
[2016-12-14] MEDS: Levetiracetam 500 mg/5mL 5mL UDC GT SCH ×2 (09:21→20:17)
[2016-12-14] MEDS: Hydrocodone/APAP 5mg/325mg Tab GT SCH (09:23)
[2016-12-14] MEDS: Ferrous Sulfate 300 MG/5 ML UDC GT SCH (09:24)
[2016-12-14] MEDS: Petrolatum (White) Oint 0.6 Oz Tube TP SCH (09:25)
[2016-12-14] MEDS: Ascorbic Acid 500 mg/5 mL UDC GT SCH (09:26)
[2016-12-14] MEDS: Levothyroxine 0.1 Mg Tab GT SCH (09:30)
--- NOTE | 2016-12-14 09:48 | Diagnostic Imaging Report ---
Portable chest x-ray HISTORY: Pneumonia Compared with prior exam December 12, 2016, decreased infiltrate within the left lung. Faint hazy infiltrate noted in the right perihilar region. IMPRESSION: 1. Decreased infiltrate within the left lung.
[2016-12-14] MEDS ORDERED: Amikacin 500 mg in D5W 100mL (Q24HR) IV SCH (12:00)
--- NOTE | 2016-12-14 13:39 | Internal Medicine Prog Note ---
Internal Medicine Subjective - Subjective Service Date: 12/14/16 Patient is:: non-verbal, non-interactive Patient Complaints of:: congestion Per staff patient has:: tolerating meds Internal Medicine Objective - Results Result Diagrams: 12/14/16 05:25 12/14/16 05:25 Recent Labs: Laboratory Last Values WBC 14.0 Th/cmm (4.8-10.8) H 12/14/16 05:25 RBC 3.08 Mil/cmm (3.80-5.20) L 12/14/16 05:25 Hgb 8.8 gm/dL (11.7-16.1) L 12/14/16 05:25 Hct 26.3 % (35.0-45.0) L 12/14/16 05:25 MCV 85.5 fl (81-100) 12/14/16 05:25 MCH 28.4 pg (27.0-31.0) 12/14/16 05:25 MCHC Differential 33.2 pg (28.0-36.0) 12/14/16 05:25 RDW 15.9 % (11.5-20.0) 12/14/16 05:25 Plt Count 256 Th/cmm (150-400) 12/14/16 05:25 MPV 8.0 fl 12/14/16 05:25 Neutrophils % 76.1 % (40.0-80.0) 12/14/16 05:25 Band Neutrophils % 4 % (0-10) 12/13/16 05:00 Lymphocytes % 13.9 % (20.0-50.0) L 12/14/16 05:25 Monocytes % 7.1 % (2.0-10.0) 12/14/16 05:25 Eosinophils % 2.5 % (0.0-5.0) 12/14/16 05:25 Basophils % 0.4 % (0.0-2.0) 12/14/16 05:25 Neutrophils (Manual) 68 % (40-80) 12/13/16 05:00 Lymphocytes 13 % (20-50) L 12/13/16 05:00 Monocytes 9 % (2-10) 12/13/16 05:00 Eosinophils 1 % (0-5) 12/13/16 05:00 Metamyelocytes 4 % (0-0) H 12/13/16 05:00 Myelocytes 1 % 12/13/16 05:00 Platelet Estimate ADEQUATE (NORMAL) 12/13/16 05:00 Platelet Morphology PLATELET CLUMPS SEEN (NORMAL) 12/13/16 05:00 Anisocytosis 1+ 12/11/16 04:32 RBC Morph Micro Appear NORMAL (NORMAL) 12/13/16 05:00 Specimen Source Arterial 12/11/16 07:44 Sample Site Right Radial 12/11/16 07:44 pH 7.48 (7.35-7.45) H 12/11/16 07:44 pCO2 41.0 mmHg (35.0-45.0) 12/11/16 07:44 pO2 86.0 mmHg (80.0-100.0) 12/11/16 07:44 HCO3 29.2 mEq/L (20.0-26.0) H 12/11/16 07:44 Base Excess 6.4 mEq/L (-3.0-3.0) H 12/11/16 07:44 O2 Saturation 97.0 % (92.0-100.0) 12/11/16 07:44 Terry Test Positive 12/11/16 07:44 Vent Rate 16 12/11/16 07:44 Inspired O2 30 12/11/16 07:44 Tidal Volume 500 12/11/16 07:44 PEEP 5 12/11/16 07:44 Pressure (ins/psv/peep) NA 12/11/16 07:44 Critical Value LZHANG 12/11/16 07:44 Sodium 137 mEq/L (136-145) 12/14/16 05:25 Potassium 3.9 mEq/L (3.5-5.1) 12/14/16 05:25 Chloride 106 mEq/L (98-107) 12/14/16 05:25 Carbon Dioxide 24.7 mEq/L (21.0-31.0) 12/14/16 05:25 Anion Gap 10.2 (7.0-16.0) 12/14/16 05:25 BUN 23 mg/dL (7-25) 12/14/16 05:25 Creatinine 0.6 mg/dL (0.6-1.2) 12/14/16 05:25 Est GFR ( Amer) TNP 12/14/16 05:25 Est GFR (Non-Af Amer) TNP 12/14/16 05:25 BUN/Creatinine Ratio 38.3 12/14/16 05:25 Glucose 219 mg/dL (70-105) H 12/14/16 05:25 POC Glucose 222 MG/DL (70 - 105) H 12/14/16 12:05 Hemoglobin A1c % 7.8 % (4.0-6.0) H 12/10/16 13:00 Whole Bld Lactic Acid 2.11 mmol/L (0.60-1.99) H* 12/10/16 15:08 Calcium 8.7 mg/dL (8.6-10.3) 12/14/16 05:25 Total Bilirubin 0.4 mg/dL (0.3-1.0) 12/11/16 04:32 AST 37 U/L (13-39) 12/11/16 04:32 ALT 51 U/L (7-52) 12/11/16 04:32 Alkaline Phosphatase 94 U/L (34-104) 12/11/16 04:32 Troponin I 0.01 ng/mL (0.01-0.05) 12/10/16 13:00 Total Protein 7.4 gm/dL (6.0-8.3) 12/11/16 04:32 Albumin 3.2 gm/dL (3.7-5.3) L 12/11/16 04:32 Globulin 4.2 gm/dL 12/11/16 04:32 Albumin/Globulin Ratio 0.8 (1.0-1.8) L 12/11/16 04:32 Urine Source RANDOM 12/10/16 13:40 Urine Color STRAW 12/10/16 13:40 Urine Clarity CLEAR (CLEAR) 12/10/16 13:40 Urine pH 7.5 (4.6 - 8.0) 12/10/16 13:40 Ur Specific [place] <= 1.005 (1.005-1.030) 12/10/16 13:40 Urine Protein NEGATIVE mg/dL (NEGATIVE) 12/10/16 13:40 Urine Glucose (UA) NEGATIVE mg/dL (NEGATIVE) 12/10/16 13:40 Urine Ketones NEGATIVE mg/dL (NEGATIVE) 12/10/16 13:40 Urine Blood NEGATIVE (NEGATIVE) 12/10/16 13:40 Urine Nitrate NEGATIVE (NEGATIVE) 12/10/16 13:40 Urine Bilirubin NEGATIVE (NEGATIVE) 12/10/16 13:40 Urine Urobilinogen 0.2 E.U./dL (0.2 - 1.0) 12/10/16 13:40 Ur Leukocyte Esterase NEGATIVE (NEGATIVE) 12/10/16 13:40 Urine RBC NONE SEEN /hpf (0-5) 12/10/16 13:40 Urine WBC NONE SEEN /hpf (0-5) 12/10/16 13:40 Ur Epithelial Cells NONE SEEN /lpf (FEW) 12/10/16 13:40 Urine Bacteria NONE SEEN /hpf (NONE SEEN) 12/10/16 13:40 - Physical Exam Vitals and I&O: Vital Signs Temp 98 F 12/14/16 13:00 Pulse 74 12/14/16 13:00 Resp 16 12/14/16 13:00 BP 148/75 12/14/16 13:00 Pulse Ox 100 12/14/16 13:00 Intake & Output 12/13/16 12/14/16 12/14/16 18:59 06:59 18:59 Intake Total 1389.167 680 100 Output Total 380 450 Balance 1009.167 230 100 Weight (lbs) 207 lb 2 oz 212 lb 212 lb Intake: Intake, IV Amount 389.167 Meropenem 500 mg In 100 Sodium Chloride 0.9% 100 ml @ 100 mls/hr IV Q12H [facility] Rx#:[id number] Sodium Chloride 0.9% 1, 289.167 000 ml @ 50 mls/hr IV . Q20H [facility] Rx#:[id number] Tube Feeding 600 600 100 Other 400 80 Output: Urine 380 450 Other: # Bowel Movements 2 1 Stool Characteristics Liquid Liquid Liquid Brown Brown Brown Active Medications: Current Medications Acetaminophen (Tylenol 650mg/20.3ml Suspension) 650 mg GT Q6HR PRN PRN Reason: Pain or Fever >101 Stop: 02/08/17 19:19 Last Admin: 12/12/16 15:41 Dose: 650 mg Acetaminophen/Hydrocodone Bitart ([place] 5mg/325mg) 1 tab GT DAILY [facility] Stop: 02/09/17 08:59 Last Admin: 12/14/16 09:23 Dose: 1 tab Acetaminophen/Hydrocodone Bitart ([place] 5mg/325mg) 1 tab GT Q6H PRN PRN Reason: Pain (Severe) Stop: 02/08/17 19:19 Last Admin: 12/11/16 21:12 Dose: 1 tab Acetylcysteine (Mucomyst 20%) 2 ml HHN Q6H [facility] Stop: 02/08/17 19:19 Last Admin: 12/14/16 07:27 Dose: 2 ml Albuterol/Ipratropium (Duoneb Neb) 3 ml HHN Q2H PRN PRN Reason: Wheezing Stop: 02/08/17 19:19 Albuterol/Ipratropium (Duoneb Neb) 3 ml HHN Q6HRT [facility] Stop: 02/12/17 12:59 Allopurinol (Zyloprim) 200 mg GT DAILY [facility] Stop: 02/09/17 08:59 Last Admin: 12/14/16 09:22 Dose: 200 mg Amlodipine Besylate (Norvasc) 5 mg GT DAILY [facility] Stop: 02/09/17 08:59 Last Admin: 12/14/16 09:23 Dose: 5 mg Ascorbic Acid (Vitamin C) 500 mg GT DAILY [facility] Stop: 02/09/17 08:59 Last Admin: 12/14/16 09:26 Dose: 500 mg Benztropine Mesylate (Cogentin) 1 mg GT BID [facility] Stop: 02/09/17 08:59 Last Admin: 12/14/16 09:20 Dose: 1 mg Carbidopa/Levodopa (Sinemet 25mg-100 Mg) 1 tab GT DAILY [facility] Stop: 02/09/17 08:59 Last Admin: 12/14/16 09:20 Dose: 1 tab Chlorhexidine Gluconate (Peridex) 15 ml MM 0800,2000 [facility] Stop: 02/08/17 19:59 Last Admin: 12/14/16 08:25 Dose: 15 ml Clonazepam (Klonopin) 0.5 mg GT BID [facility] PRN Reason: Protocol Stop: 02/09/17 08:59 Last Admin: 12/14/16 09:23 Dose: 0.5 mg Dextrose (Glutose 40%) 18.75 gm PO PRN PRN PRN Reason: Blood Glucose less than 70 Stop: 02/08/17 19:19 Dextrose (D50w) 50 ml IVP PRN PRN PRN Reason: hypoglycemia Stop: 02/09/17 08:18 Docusate Sodium (Colace) 250 mg PO BID [facility] Stop: 02/09/17 08:59 Last Admin: 12/14/16 09:20 Dose: 250 mg Famotidine (Pepcid) 20 mg GT DAILY [facility] Stop: 02/09/17 08:59 Last Admin: 12/14/16 09:20 Dose: 20 mg Ferrous Sulfate (Iron) 330 mg GT DAILY [facility] Stop: 02/09/17 08:59 Last Admin: 12/14/16 09:24 Dose: 330 mg Glipizide (Glucotrol) 5 mg GT BID [facility] Stop: 02/09/17 08:59 Last Admin: 12/14/16 09:23 Dose: 5 mg Glucagon (Glucagen) 1 mg IM PRN PRN PRN Reason: Blood Glucose less than 70 Stop: 02/08/17 19:19 Guaifenesin/Dextromethorphan (Robitussin Dm) 5 ml GT Q6H PRN PRN Reason: Cough Stop: 02/08/17 19:19 Last Admin: 12/11/16 07:01 Dose: 5 ml Heparin Sodium (Porcine) (Heparin) 5,000 units SUBQ Q12HR [facility] Stop: 02/08/17 20:59 Last Admin: 12/14/16 09:27 Dose: 5,000 units Sodium Chloride (Nacl 0.9%) 1,000 mls @ 50 mls/hr IV .Q20H [facility] Stop: 02/08/17 19:19 Last Admin: 12/14/16 00:39 Dose: 50 mls/hr Meropenem 500 mg/ Sodium (Chloride) 100 mls @ 100 mls/hr IV Q12H [facility] Stop: 02/10/17 17:29 Last Admin: 12/14/16 06:22 Dose: 100 mls/hr Vancomycin HCl 1.25 gm/ Sodium (Chloride) 250 mls @ 165 mls/hr IV Q24H [facility] Stop: 02/10/17 17:59 Last Admin: 12/13/16 18:05 Dose: 165 mls/hr Amikacin Sulfate 500 mg/ (Dextrose) 102 mls @ 100 mls/hr IV Q24HR [facility] Stop: 02/12/17 11:59 Last Admin: 12/14/16 12:00 Dose: 100 mls/hr Insulin Aspart (Novolog Insulin Sliding Scale) 0 units SUBQ Q6HR [facility] PRN Reason: Protocol Stop: 02/08/17 19:19 Last Admin: 12/14/16 12:05 Dose: 4 units Insulin Human Isoph/Insulin Regular (Novolin 70/30) 22 units SUBQ HS [facility] PRN Reason: Protocol Stop: 02/08/17 20:59 Last Admin: 12/13/16 21:40 Dose: 22 units Insulin Human Isoph/Insulin Regular (Novolin 70/30) 45 units SUBQ QDAC [facility] PRN Reason: Protocol Stop: 02/09/17 07:29 Last Admin: 12/14/16 08:00 Dose: 45 units Lactobacillus Rhamnosus (Culturelle) 1 each PO DAILY [facility] Stop: 02/10/17 08:59 Last Admin: 12/14/16 09:20 Dose: 1 each Lactulose (Cephulac) 30 gm GT DAILY PRN PRN Reason: BOWEL MANAGEMENT Stop: 02/08/17 19:19 Last Admin: 12/12/16 23:03 Dose: 30 gm Levetiracetam (Keppra) 1,000 mg GT Q12HR [facility] Stop: 02/08/17 20:59 Last Admin: 12/14/16 09:21 Dose: 1,000 mg Levothyroxine Sodium (Synthroid) 0.1 mg GT QDAC [facility] Stop: 02/09/17 07:29 Last Admin: 12/14/16 09:30 Dose: 0.1 mg Lisinopril (Zestril) 20 mg GT DAILY [facility] Stop: 02/09/17 08:59 Last Admin: 12/14/16 09:20 Dose: 20 mg Magnesium Citrate (Citroma) 17.5 gm PO Q12HR PRN PRN Reason: Constipation Stop: 02/08/17 19:19 Metoclopramide HCl (Reglan) 10 mg GT Q6HR [facility] Stop: 02/08/17 19:19 Last Admin: 12/14/16 12:00 Dose: 10 mg Miscellaneous (Probiotic Screen) 1 ea MC PRN PRN PRN Reason: PROTOCOL Stop: 02/09/17 10:39 Miscellaneous (Vancomycin Iv Per Pharmacy) 1 ea MC PRN [facility] Stop: 02/10/17 16:29 Miscellaneous (Amikacin Iv Per Pharmacy) 1 ea MC PRN PRN PRN Reason: PROTOCOL Stop: 02/11/17 19:14 Multivitamins/Vitamin C (Theragran) 1 tab GT DAILY [facility] Stop: 02/10/17 14:59 Last Admin: 12/14/16 09:20 Dose: 1 tab Ondansetron HCl (Zofran) 4 mg IV Q8H PRN PRN Reason: Nausea / Vomiting Stop: 02/09/17 08:18 Petrolatum (Vaseline Oint) 1 appl TP DAILY [facility] Stop: 02/09/17 08:59 Last Admin: 12/14/16 09:25 Dose: 1 appl Sucralfate (Carafate) 1 gm GT QID [facility] Stop: 02/08/17 20:59 Last Admin: 12/14/16 13:27 Dose: 1 gm Tramadol HCl (Ultram) 50 mg GT Q6H PRN PRN Reason: Pain (Moderate) Stop: 02/08/17 19:19 Last Admin: 12/13/16 21:43 Dose: 50 mg Zinc Sulfate (Zinc Sulfate) 220 mg GT DAILY [facility] Stop: 02/09/17 08:59 Last Admin: 12/14/16 09:23 Dose: 220 mg General: weak, obtunded HEENT: NC/AT, PERRLA Neck: Supple, No JVD, + trach Lungs: ronchi Cardiovascular: RRR, Normal S1, Normal S2, without murmur Abdomen: soft, non-tender Neurological: alert - Procedures Procedures: Procedures Procedure Code Date AIRWAYS SURGICAL PROCEDURE 00363 03/03/16 CHANGE GASTROSTOMY TUBE 51004 06/06/13 CONTINUOUS INVASIVE MECHANICAL VENTILATION <96 CONSEC HRS 96.71 02/02/13 CONTINUOUS INVASIVE MECHANICAL VENTILATION =/>96 CONSEC HRS 96.72 06/06/13 [place] [id number] 03/03/16 IMMUNIZATION ADMIN [id number] 03/03/16 INFLUENZA VACCINATION 99.52 02/02/13 INSERT NON-TUNNEL CV CATH [id number] 03/03/16 INSERT PICC CATH [id number] 02/02/13 INSERTION OF INFUSION DEV INTO SUP VENA CAVA, PERC APPROACH [id number] 03/03/16 INTRODUCTION OF SERUM/TOX/VACCINE INTO MUSCLE, PERC APPROACH [id number] 03/03/16 OTHER GASTROSTOMY 43.19 06/03/10 REPLACE GASTROSTOMY TUBE 97.02 06/06/13 RESPIRATORY VENTILATION, 24-96 CONSECUTIVE HOURS [id number] 12/10/16 RESPIRATORY VENTILATION, GREATER THAN 96 CONSECUTIVE HOURS [id number] 03/03/16 VACCINATION NEC 99.55 02/02/13 VENOUS CATHETERIZATION NEC 38.93 02/02/13 VENT MGMT INPAT INIT DAY 03/03/16 VENT MGMT INPAT SUBQ 03/03/16 Internal Medicine Assmt/Plan - Assessment Assessment: Lactic Acidosis PSEUDOMONAS sputum Fever Sepsis Uncontrolled Glucose Level Acute on chronic respiratory failure Vdrf seizure decubitus ulcer morbid obesity parkinsons dm2 - Plan Plan: continue ivabx vent support monitor glucose montor for fever am labs dc planning once cleared by consultants Nutritional Asmnt/Malnutr-PDOC - Dietary Evaluation Malnutrition Findings (Please click <Entered> for more info): Nutritional Asmnt/Malnutrition Start: 12/12/16 10: 48 Text: Status: Complete Freq: Document 12/12/16 15:50 [facility] (Rec: 12/12/16 16:56 [facility] [id number]) Nutritional Asmnt/Malnutrition Patient General Information Nutritional Screening Consult Diagnosis Rule out sepsis, lactic acidosis, uncontrolled glucose level Pertinent Medical Hx/Surgical Hx Chronic hydrocephalus, seizures, VDRF, previous pneumonia, decubitus ulceration, morbid obesity, Parkinson's disease, DM2 Subjective Information Nutrition Consult for sacral wound received and completed. Pt is a 81-year-old female from [facility] admitted with chief complaint of fever for 3 days. Pt has tracheostomy to ventilator; unable to provide hx. Pt appears well nourished with no signs of muscle or fat depletion. RD verified Diabetisource AC infusing at 50 ml/hr during time of visit. Current Diet Order/ Nutrition Support Diabetisource AC at 50 ml/hr = 1440kcal, 72gm protein, 982 ml free water Patient / S.O Can't verbalize diet edu Pertinent Medications Vitamin C, Cetriaxone Sodium, Colace, Pepcid, Iron, Glucotrol, Novolog, Novolin 70 /30, Culturelle, Replan, Theragran, NaCl 0.9%, Zinc Sulfate Pertinent Labs (12/10) Glucose 356H, A1C 7.8H, (12/12) Na 133L, Glucose 308H, POC Glucose 268H-287H Nutritional Hx/Data Height 4 ft 11 in Height (Calculated Centimeters) 149.9 Current Weight (lbs) 207 lb 2 oz Weight (Calculated Kilograms) 94.0 Weight (Calculated Grams) 44308.3 [place] Body Weight 97.5 % [place] Body Weight 212 Weight Status Morbidly Obese GI Symptoms GI Symptoms None Difficult in: Chewing Swallowing Food Allergies No Usual diet at home Diabetisource AC at 60 ml/hr x 20 hours between 7289-9624, 250 ml water Q6 Skin Integrity/Comment: Germán 11. Old scar and healing decubitus ulcer to sacral-coccygeal area. Estimated Nutritional Goals BEE in Kcals: Using Current wt Calories/Kcals/Kg Based on current wt 94.1 kg with consideration of obesity, wound, vent Kcals Calculated 2273-3019 kcals/day ([place] St Jeor x 1.2-1.3) Protein: Using Current wt Protein g/kg: Based on current wt 94.1 kg with consideration of obesity, wound, vent Protein Calculated 94-122 gm/day (1-1.3 gm/kg) Fluid: ml 7489-1050 ml/day (1 ml/kcal) Nutritional Problem 1. Problem Problem Increased protein needs related to Etiology altered skin integrity as evidenced by Signs/Symptoms: decubitus ulcer to sacral- coccygeal area, per RN notes. Malnutrition Alert Protein-Calorie Malnutrition N/A Is there a minimum of two criteria No selected? Query Text:Check all the applicable criteria. A minimum of two criteria are recommended for diagnosis of either severe or non-severe malnutrition. Malnutrition Related to Morbid Obesity Malnutrition related to morbid obesity BMI> or equal to 40 Query Text:(Any 1 Criteria met) Malnutrition related to morbid obesity Yes Intervention/Recommendation Comments 1. Recommend increase Diabetisource AC to goal rate of 60 ml/hr to provide 1728 kcals, 86 gm protein, and 1178 ml free water per day. 2. Recommend one packet of Prosource daily via PEG to provide additional 15 gm protein to better meet estimated protein needs. Expected Outcomes/Goals Expected Outcomes/Goals Provide pt with 100% of estimated nutritional needs to promote wound healing. Physician Parameters for PEM Serum Albumin (g/dl) 3.1 - 3.4 (Mild)
[2016-12-14] MEDS ORDERED: D5-0.45NS 1,000 ML IV SCH (13:41)
[2016-12-15] MEDS: Albuterol/Ipratropium Neb 3 ML AERS HHN SCH ×4 (00:57→19:41)
[2016-12-15 05:48] LABS: % BASOPHILS 0.3 % (0.0-2.0); % LYMPHOCYTES 8.3 % (20.0-50.0); % MONOCYTES 6.3 % (2.0-10.0); % NEUTROPHILS 83.1 % (40.0-80.0); HEMATOCRIT 27.3 % (35.0-45.0); MEAN CELL VOLUME 85.3 fl (81-100); MEAN CORPUSCULAR HEMOGLOBIN 28.1 pg (27.0-31.0); MEAN CORPUSCULAR HGB CONC 32.9 pg (28.0-36.0); MEAN PLATELET VOLUME 9.3 fl; NEUTROPHILE ABSOLUTE 13.3 Th/cmm (1.8-8.0); PLATELET COUNT 263 Th/cmm (150-400); RED CELL DISTRIBUTION WIDTH 15.9 % (11.5-20.0)
[2016-12-15 05:57] LABS: WHITE BLOOD COUNT 15.9 Th/cmm (4.8-10.8)
[2016-12-15 06:00] LABS: ANION GAP 9.9 (7.0-16.0); BUN - UREA NITROGEN 21 mg/dL (7-25); CALCIUM SERUM 8.6 mg/dL (8.6-10.3); CHLORIDE 103 mEq/L (98-107); CREATININE - SERUM 0.6 mg/dL (0.6-1.2); GLUCOSE 246 mg/dL (70-105); POTASSIUM SERUM 3.9 mEq/L (3.5-5.1); SODIUM SERUM 133 mEq/L (136-145)
[2016-12-15] MEDS: INSULIN ASPART SLIDING SCALE 100 UNITS/ML UNIT SUBQ SCH ×4 (06:21→23:27)
[2016-12-15] MEDS: INSULIN 70/30 100 UNITS/ML SUBQ SCH ×2 (06:48→21:14)
[2016-12-15] MEDS: Petrolatum (White) Oint 0.6 Oz Tube TP SCH (08:21)
[2016-12-15] MEDS: Ferrous Sulfate 300 MG/5 ML UDC GT SCH (08:21)
[2016-12-15] MEDS: Lactobacillus Rhamnosus 10 Billion CFU Capsule PO SCH (08:22)
[2016-12-15] MEDS: Levothyroxine 0.1 Mg Tab GT SCH (08:22)
[2016-12-15] MEDS: Multivitamin Tab GT SCH (08:22)
[2016-12-15] MEDS: Benztropine 1 MG TAB GT SCH ×2 (08:23→16:41)
[2016-12-15] MEDS: Hydrocodone/APAP 5mg/325mg Tab GT SCH (08:23)
[2016-12-15] MEDS: Chlorhexidine Gluconate 0.12% 15mL Mouthwash MM SCH ×2 (08:29→19:36)
[2016-12-15] MEDS: Ascorbic Acid 500 mg/5 mL UDC GT SCH (08:29)
[2016-12-15] MEDS: Meropenem 500 MG in Sodium Chloride 0.9% 100 ML IV SCH ×2 (11:20→16:40)
[2016-12-15] MEDS: Levetiracetam 500 mg/5mL 5mL UDC GT SCH ×2 (11:24→20:30)
[2016-12-15] MEDS: Vancomycin HCl 1.5 GM in Sodium Chloride 0.9% 500 ML IV SCH (13:19)
--- NOTE | 2016-12-15 14:29 | Internal Medicine Prog Note ---
Internal Medicine Subjective - Subjective Service Date: 12/15/16 Patient is:: non-verbal, non-interactive Patient Complaints of:: congestion Per staff patient has:: tolerating meds Internal Medicine Objective - Results Result Diagrams: 12/15/16 04:53 12/15/16 04:53 Recent Labs: Laboratory Last Values WBC 15.9 Th/cmm (4.8-10.8) H 12/15/16 04:53 RBC 3.20 Mil/cmm (3.80-5.20) L 12/15/16 04:53 Hgb 9.0 gm/dL (11.7-16.1) L 12/15/16 04:53 Hct 27.3 % (35.0-45.0) L 12/15/16 04:53 MCV 85.3 fl (81-100) 12/15/16 04:53 MCH 28.1 pg (27.0-31.0) 12/15/16 04:53 MCHC Differential 32.9 pg (28.0-36.0) 12/15/16 04:53 RDW 15.9 % (11.5-20.0) 12/15/16 04:53 Plt Count 263 Th/cmm (150-400) 12/15/16 04:53 MPV 9.3 fl 12/15/16 04:53 Neutrophils % 83.1 % (40.0-80.0) H 12/15/16 04:53 Band Neutrophils % 4 % (0-10) 12/13/16 05:00 Lymphocytes % 8.3 % (20.0-50.0) L 12/15/16 04:53 Monocytes % 6.3 % (2.0-10.0) 12/15/16 04:53 Eosinophils % 2.0 % (0.0-5.0) 12/15/16 04:53 Basophils % 0.3 % (0.0-2.0) 12/15/16 04:53 Neutrophils (Manual) 68 % (40-80) 12/13/16 05:00 Lymphocytes 13 % (20-50) L 12/13/16 05:00 Monocytes 9 % (2-10) 12/13/16 05:00 Eosinophils 1 % (0-5) 12/13/16 05:00 Metamyelocytes 4 % (0-0) H 12/13/16 05:00 Myelocytes 1 % 12/13/16 05:00 Platelet Estimate ADEQUATE (NORMAL) 12/13/16 05:00 Platelet Morphology PLATELET CLUMPS SEEN (NORMAL) 12/13/16 05:00 Anisocytosis 1+ 12/11/16 04:32 RBC Morph Micro Appear NORMAL (NORMAL) 12/13/16 05:00 Specimen Source Arterial 12/11/16 07:44 Sample Site Right Radial 12/11/16 07:44 pH 7.48 (7.35-7.45) H 12/11/16 07:44 pCO2 41.0 mmHg (35.0-45.0) 12/11/16 07:44 pO2 86.0 mmHg (80.0-100.0) 12/11/16 07:44 HCO3 29.2 mEq/L (20.0-26.0) H 12/11/16 07:44 Base Excess 6.4 mEq/L (-3.0-3.0) H 12/11/16 07:44 O2 Saturation 97.0 % (92.0-100.0) 12/11/16 07:44 Terry Test Positive 12/11/16 07:44 Vent Rate 16 12/11/16 07:44 Inspired O2 30 12/11/16 07:44 Tidal Volume 500 12/11/16 07:44 PEEP 5 12/11/16 07:44 Pressure (ins/psv/peep) NA 12/11/16 07:44 Critical Value LZHANG 12/11/16 07:44 Sodium 133 mEq/L (136-145) L 12/15/16 04:53 Potassium 3.9 mEq/L (3.5-5.1) 12/15/16 04:53 Chloride 103 mEq/L (98-107) 12/15/16 04:53 Carbon Dioxide 24.0 mEq/L (21.0-31.0) 12/15/16 04:53 Anion Gap 9.9 (7.0-16.0) 12/15/16 04:53 BUN 21 mg/dL (7-25) 12/15/16 04:53 Creatinine 0.6 mg/dL (0.6-1.2) 12/15/16 04:53 Est GFR ( Amer) TNP 12/15/16 04:53 Est GFR (Non-Af Amer) TNP 12/15/16 04:53 BUN/Creatinine Ratio 35.0 12/15/16 04:53 Glucose 246 mg/dL (70-105) H 12/15/16 04:53 POC Glucose 270 MG/DL (70 - 105) H 12/15/16 12:02 Hemoglobin A1c % 7.8 % (4.0-6.0) H 12/10/16 13:00 Whole Bld Lactic Acid 2.11 mmol/L (0.60-1.99) H* 12/10/16 15:08 Calcium 8.6 mg/dL (8.6-10.3) 12/15/16 04:53 Total Bilirubin 0.4 mg/dL (0.3-1.0) 12/11/16 04:32 AST 37 U/L (13-39) 12/11/16 04:32 ALT 51 U/L (7-52) 12/11/16 04:32 Alkaline Phosphatase 94 U/L (34-104) 12/11/16 04:32 Troponin I 0.01 ng/mL (0.01-0.05) 12/10/16 13:00 Total Protein 7.4 gm/dL (6.0-8.3) 12/11/16 04:32 Albumin 3.2 gm/dL (3.7-5.3) L 12/11/16 04:32 Globulin 4.2 gm/dL 12/11/16 04:32 Albumin/Globulin Ratio 0.8 (1.0-1.8) L 12/11/16 04:32 Urine Source RANDOM 12/10/16 13:40 Urine Color STRAW 12/10/16 13:40 Urine Clarity CLEAR (CLEAR) 12/10/16 13:40 Urine pH 7.5 (4.6 - 8.0) 12/10/16 13:40 Ur Specific [place] <= 1.005 (1.005-1.030) 12/10/16 13:40 Urine Protein NEGATIVE mg/dL (NEGATIVE) 12/10/16 13:40 Urine Glucose (UA) NEGATIVE mg/dL (NEGATIVE) 12/10/16 13:40 Urine Ketones NEGATIVE mg/dL (NEGATIVE) 12/10/16 13:40 Urine Blood NEGATIVE (NEGATIVE) 12/10/16 13:40 Urine Nitrate NEGATIVE (NEGATIVE) 12/10/16 13:40 Urine Bilirubin NEGATIVE (NEGATIVE) 12/10/16 13:40 Urine Urobilinogen 0.2 E.U./dL (0.2 - 1.0) 12/10/16 13:40 Ur Leukocyte Esterase NEGATIVE (NEGATIVE) 12/10/16 13:40 Urine RBC NONE SEEN /hpf (0-5) 12/10/16 13:40 Urine WBC NONE SEEN /hpf (0-5) 12/10/16 13:40 Ur Epithelial Cells NONE SEEN /lpf (FEW) 12/10/16 13:40 Urine Bacteria NONE SEEN /hpf (NONE SEEN) 12/10/16 13:40 Vancomycin Trough 9.2 ug/mL (10-20) L 12/14/16 17:22 - Physical Exam Vitals and I&O: Vital Signs Temp 99 F 12/15/16 12:00 Pulse 79 12/15/16 13:58 Resp 16 12/15/16 12:08 BP 110/46 12/15/16 12:00 Pulse Ox 100 12/15/16 13:58 Intake & Output 12/14/16 12/15/16 12/15/16 18:59 06:59 18:59 Intake Total 1452 1450 300 Output Total 420 100 Balance 1032 1450 200 Weight (lbs) 209 lb 8 oz 209 lb 188 lb 1.6 oz Intake: Intake, IV Amount 302 1250 100 Amikacin 500 mg In 102 Dextrose 5% 100 ml @ 100 mls/hr IV Q24HR [facility] Rx#: [id number] D5-0.45NS 1,000 ml @ 100 1000 mls/hr IV .Q10H [facility] Rx#: [id number] Meropenem 500 mg In 200 100 Sodium Chloride 0.9% 100 ml @ 100 mls/hr IV Q12H [facility] Rx#:[id number] Vancomycin HCl 1.25 gm In 250 Sodium Chloride 0.9% 250 ml @ 165 mls/hr IV Q24H [facility] Rx#:[id number] Oral 0 Tube Feeding 700 200 200 TPN/PPN 0 Blood Product 0 Lipid 0 Albumin 0 Other 450 0 Output: Gastric Drainage 0 Urine 420 100 Stool 0 Urine/Stool Mix 0 Emesis 0 Hemodialysis 0 Other 0 Other: # Voids 1 # Bowel Movements 2 0 Stool Characteristics Liquid Brown Active Medications: Current Medications Acetaminophen (Tylenol 650mg/20.3ml Suspension) 650 mg GT Q6HR PRN PRN Reason: Pain or Fever >101 Stop: 02/08/17 19:19 Last Admin: 12/12/16 15:41 Dose: 650 mg Acetaminophen/Hydrocodone Bitart ([place] 5mg/325mg) 1 tab GT DAILY [facility] Stop: 02/09/17 08:59 Last Admin: 12/15/16 08:23 Dose: 1 tab Acetaminophen/Hydrocodone Bitart ([place] 5mg/325mg) 1 tab GT Q6H PRN PRN Reason: Pain (Severe) Stop: 02/08/17 19:19 Last Admin: 12/11/16 21:12 Dose: 1 tab Acetylcysteine (Mucomyst 20%) 2 ml HHN Q6H [facility] Stop: 02/08/17 19:19 Last Admin: 12/15/16 07:54 Dose: 2 ml Albuterol/Ipratropium (Duoneb Neb) 3 ml HHN Q2H PRN PRN Reason: Wheezing Stop: 02/08/17 19:19 Last Admin: 12/15/16 13:51 Dose: 3 ml Albuterol/Ipratropium (Duoneb Neb) 3 ml HHN Q6HRT [facility] Stop: 02/12/17 12:59 Last Admin: 12/15/16 07:54 Dose: 3 ml Allopurinol (Zyloprim) 200 mg GT DAILY [facility] Stop: 02/09/17 08:59 Last Admin: 12/15/16 08:21 Dose: 200 mg Amlodipine Besylate (Norvasc) 5 mg GT DAILY [facility] Stop: 02/09/17 08:59 Last Admin: 12/15/16 08:24 Dose: 5 mg Ascorbic Acid (Vitamin C) 500 mg GT DAILY [facility] Stop: 02/09/17 08:59 Last Admin: 12/15/16 08:29 Dose: 500 mg Benztropine Mesylate (Cogentin) 1 mg GT BID [facility] Stop: 02/09/17 08:59 Last Admin: 12/15/16 08:23 Dose: 1 mg Carbidopa/Levodopa (Sinemet 25mg-100 Mg) 1 tab GT DAILY [facility] Stop: 02/09/17 08:59 Last Admin: 12/15/16 08:24 Dose: 1 tab Chlorhexidine Gluconate (Peridex) 15 ml MM 799,1999 [facility] Stop: 02/08/17 19:59 Last Admin: 12/15/16 08:29 Dose: 15 ml Clonazepam (Klonopin) 0.5 mg GT BID [facility] PRN Reason: Protocol Stop: 02/09/17 08:59 Last Admin: 12/15/16 08:22 Dose: 0.5 mg Dextrose (Glutose 40%) 18.75 gm PO PRN PRN PRN Reason: Blood Glucose less than 70 Stop: 02/08/17 19:19 Dextrose (D50w) 50 ml IVP PRN PRN PRN Reason: hypoglycemia Stop: 02/09/17 08:18 Docusate Sodium (Colace) 250 mg PO BID [facility] Stop: 02/09/17 08:59 Last Admin: 12/15/16 08:23 Dose: 250 mg Famotidine (Pepcid) 20 mg GT DAILY [facility] Stop: 02/09/17 08:59 Last Admin: 12/15/16 08:23 Dose: 20 mg Ferrous Sulfate (Iron) 330 mg GT DAILY [facility] Stop: 02/09/17 08:59 Last Admin: 12/15/16 08:21 Dose: 330 mg Glipizide (Glucotrol) 5 mg GT BID [facility] Stop: 02/09/17 08:59 Last Admin: 12/15/16 08:23 Dose: 5 mg Glucagon (Glucagen) 1 mg IM PRN PRN PRN Reason: Blood Glucose less than 70 Stop: 02/08/17 19:19 Guaifenesin/Dextromethorphan (Robitussin Dm) 5 ml GT Q6H PRN PRN Reason: Cough Stop: 02/08/17 19:19 Last Admin: 12/11/16 07:01 Dose: 5 ml Heparin Sodium (Porcine) (Heparin) 5,000 units SUBQ Q12HR [facility] Stop: 02/08/17 20:59 Last Admin: 12/15/16 08:22 Dose: 5,000 units Meropenem 500 mg/ Sodium (Chloride) 100 mls @ 100 mls/hr IV Q12H [facility] Stop: 02/10/17 17:29 Last Infusion: 12/15/16 12:20 Dose: Infused Vancomycin HCl 1.5 gm/ Sodium (Chloride) 500 mls @ 250 mls/hr IV Q24H [facility] Stop: 02/13/17 13:59 Last Admin: 12/15/16 13:19 Dose: 250 mls/hr Insulin Aspart (Novolog Insulin Sliding Scale) 0 units SUBQ Q6HR [facility] PRN Reason: Protocol Stop: 02/08/17 19:19 Last Admin: 12/15/16 12:07 Dose: 6 units Insulin Human Isoph/Insulin Regular (Novolin 70/30) 22 units SUBQ HS [facility] PRN Reason: Protocol Stop: 02/08/17 20:59 Last Admin: 12/14/16 20:10 Dose: 22 units Insulin Human Isoph/Insulin Regular (Novolin 70/30) 45 units SUBQ QDAC [facility] PRN Reason: Protocol Stop: 02/09/17 07:29 Last Admin: 12/15/16 06:48 Dose: 45 units Lactobacillus Rhamnosus (Culturelle) 1 each PO DAILY [facility] Stop: 02/10/17 08:59 Last Admin: 12/15/16 08:22 Dose: 1 each Lactulose (Cephulac) 30 gm GT DAILY PRN PRN Reason: BOWEL MANAGEMENT Stop: 02/08/17 19:19 Last Admin: 12/12/16 23:03 Dose: 30 gm Levetiracetam (Keppra) 1,000 mg GT Q12HR [facility] Stop: 02/08/17 20:59 Last Admin: 12/15/16 11:24 Dose: 1,000 mg Levothyroxine Sodium (Synthroid) 0.1 mg GT QDAC [facility] Stop: 02/09/17 07:29 Last Admin: 12/15/16 08:22 Dose: 0.1 mg Lisinopril (Zestril) 20 mg GT DAILY [facility] Stop: 02/09/17 08:59 Last Admin: 12/15/16 08:22 Dose: 20 mg Magnesium Citrate (Citroma) 17.5 gm PO Q12HR PRN PRN Reason: Constipation Stop: 02/08/17 19:19 Metoclopramide HCl (Reglan) 10 mg GT Q6HR [facility] Stop: 02/08/17 19:19 Last Admin: 12/15/16 13:18 Dose: 10 mg Miscellaneous (Probiotic Screen) 1 ea PRN PRN PRN Reason: PROTOCOL Stop: 02/09/17 10:39 Miscellaneous (Vancomycin Iv Per Pharmacy) 1 ea PRN [facility] Stop: 02/10/17 16:29 Multivitamins/Vitamin C (Theragran) 1 tab GT DAILY [facility] Stop: 02/10/17 14:59 Last Admin: 12/15/16 08:22 Dose: 1 tab Ondansetron HCl (Zofran) 4 mg IV Q8H PRN PRN Reason: Nausea / Vomiting Stop: 02/09/17 08:18 Petrolatum (Vaseline Oint) 1 appl TP DAILY [facility] Stop: 02/09/17 08:59 Last Admin: 12/15/16 08:21 Dose: 1 appl Sucralfate (Carafate) 1 gm GT QID [facility] Stop: 02/08/17 20:59 Last Admin: 12/15/16 13:18 Dose: 1 gm Tramadol HCl (Ultram) 50 mg GT Q6H PRN PRN Reason: Pain (Moderate) Stop: 02/08/17 19:19 Last Admin: 12/13/16 21:43 Dose: 50 mg Zinc Sulfate (Zinc Sulfate) 220 mg GT DAILY [facility] Stop: 02/09/17 08:59 Last Admin: 12/15/16 08:22 Dose: 220 mg General: weak, obtunded HEENT: NC/AT, PERRLA Neck: Supple, No JVD, + trach Lungs: ronchi Cardiovascular: RRR, Normal S1, Normal S2, without murmur Abdomen: soft, non-tender Neurological: alert - Procedures Procedures: Procedures Procedure Code Date AIRWAYS SURGICAL PROCEDURE 61785 03/03/16 CHANGE GASTROSTOMY TUBE 68972 06/06/13 CONTINUOUS INVASIVE MECHANICAL VENTILATION <96 CONSEC HRS 96.71 02/02/13 CONTINUOUS INVASIVE MECHANICAL VENTILATION =/>96 CONSEC HRS 96.72 06/06/13 [place] [id number] 03/03/16 IMMUNIZATION ADMIN [id number] 03/03/16 INFLUENZA VACCINATION 99.52 02/02/13 INSERT NON-TUNNEL CV CATH [id number] 03/03/16 INSERT PICC CATH [id number] 02/02/13 INSERTION OF INFUSION DEV INTO SUP VENA CAVA, PERC APPROACH [id number] 03/03/16 INTRODUCTION OF SERUM/TOX/VACCINE INTO MUSCLE, PERC APPROACH [id number] 03/03/16 OTHER GASTROSTOMY 43.19 06/03/10 REPLACE GASTROSTOMY TUBE 97.02 06/06/13 RESPIRATORY VENTILATION, GREATER THAN 96 CONSECUTIVE HOURS [id number] 12/10/16 VACCINATION NEC 99.55 02/02/13 VENOUS CATHETERIZATION NEC 38.93 02/02/13 VENT MGMT INPAT INIT DAY 03/03/16 VENT MGMT INPAT SUBQ DAY 03/03/16 Internal Medicine Assmt/Plan - Assessment Assessment: Lactic Acidosis PSEUDOMONAS sputum Fever Sepsis Uncontrolled Glucose Level Acute on chronic respiratory failure Vdrf seizure decubitus ulcer morbid obesity parkinsons dm2 - Plan Plan: continue ivabx vent support monitor glucose montor for fever am labs Nutritional Asmnt/Malnutr-PDOC - Dietary Evaluation Malnutrition Findings (Please click <Entered> for more info): Nutritional Asmnt/Malnutrition Start: 12/12/16 10: 48 Text: Status: Complete Freq: Document 12/12/16 15:50 [facility] (Rec: 12/12/16 16:56 [facility] [id number]) Nutritional Asmnt/Malnutrition Patient General Information Nutritional Screening Consult Diagnosis Rule out sepsis, lactic acidosis, uncontrolled glucose level Pertinent Medical Hx/Surgical Hx Chronic hydrocephalus, seizures, VDRF, previous pneumonia, decubitus ulceration, morbid obesity, Parkinson's disease, DM2 Subjective Information Nutrition Consult for sacral wound received and completed. Pt is a 81-year-old female from [facility] admitted with chief complaint of fever for 3 days. Pt has tracheostomy to ventilator; unable to provide hx. Pt appears well nourished with no signs of muscle or fat depletion. RD verified Diabetisource AC infusing at 50 ml/hr during time of visit. Current Diet Order/ Nutrition Support Diabetisource AC at 50 ml/hr = 1440kcal, 72gm protein, 982 ml free water Patient / S.O Can't verbalize diet edu Pertinent Medications Vitamin C, Cetriaxone Sodium, Colace, Pepcid, Iron, Glucotrol, Novolog, Novolin 70 /30, Culturelle, Replan, Theragran, NaCl 0.9%, Zinc Sulfate Pertinent Labs (12/10) Glucose 356H, A1C 7.8H, (12/12) Na 133L, Glucose 308H, POC Glucose 268H-287H Nutritional Hx/Data Height 4 ft 11 in Height (Calculated Centimeters) 149.9 Current Weight (lbs) 207 lb 2 oz Weight (Calculated Kilograms) 94.0 Weight (Calculated Grams) 50832.3 [place] Body Weight 97.5 % [place] Body Weight 212 Weight Status Morbidly Obese GI Symptoms GI Symptoms None Difficult in: Chewing Swallowing Food Allergies No Usual diet at home Diabetisource AC at 60 ml/hr x 20 hours between 1327-3140, 250 ml water Q6 Skin Integrity/Comment: Germán 11. Old scar and healing decubitus ulcer to sacral-coccygeal area. Estimated Nutritional Goals BEE in Kcals: Using Current wt Calories/Kcals/Kg Based on current wt 94.1 kg with consideration of obesity, wound, vent Kcals Calculated 7552-1511 kcals/day ([place] St Jeor x 1.2-1.3) Protein: Using Current wt Protein g/kg: Based on current wt 94.1 kg with consideration of obesity, wound, vent Protein Calculated 94-122 gm/day (1-1.3 gm/kg) Fluid: ml 3107-5513 ml/day (1 ml/kcal) Nutritional Problem 1. Problem Problem Increased protein needs related to Etiology altered skin integrity as evidenced by Signs/Symptoms: decubitus ulcer to sacral- coccygeal area, per RN notes. Malnutrition Alert Protein-Calorie Malnutrition N/A Is there a minimum of two criteria No selected? Query Text:Check all the applicable criteria. A minimum of two criteria are recommended for diagnosis of either severe or non-severe malnutrition. Malnutrition Related to Morbid Obesity Malnutrition related to morbid obesity BMI> or equal to 40 Query Text:(Any 1 Criteria met) Malnutrition related to morbid obesity Yes Intervention/Recommendation Comments 1. Recommend increase Diabetisource AC to goal rate of 60 ml/hr to provide 1728 kcals, 86 gm protein, and 1178 ml free water per day. 2. Recommend one packet of Prosource daily via PEG to provide additional 15 gm protein to better meet estimated protein needs. Expected Outcomes/Goals Expected Outcomes/Goals Provide pt with 100% of estimated nutritional needs to promote wound healing. Physician Parameters for PEM Serum Albumin (g/dl) 3.1 - 3.4 (Mild)
[2016-12-15] MEDS: Hydrocodone/APAP 5mg/325mg Tab GT PRN (20:35)
[2016-12-16] MEDS: Albuterol/Ipratropium Neb 3 ML AERS HHN SCH ×3 (00:52→13:28)
[2016-12-16] MEDS: Meropenem 500 MG in Sodium Chloride 0.9% 100 ML IV SCH ×2 (05:10→16:32)
[2016-12-16 05:18] LABS: % BASOPHILS 0.3 % (0.0-2.0); % EOSINOPHILS 2.7 % (0.0-5.0); % LYMPHOCYTES 11.7 % (20.0-50.0); % MONOCYTES 5.8 % (2.0-10.0); % NEUTROPHILS 79.5 % (40.0-80.0); HEMATOCRIT 25.3 % (35.0-45.0); HEMOGLOBIN 8.4 gm/dL (11.7-16.1); MEAN CELL VOLUME 85.1 fl (81-100); MEAN CORPUSCULAR HEMOGLOBIN 28.2 pg (27.0-31.0); MEAN CORPUSCULAR HGB CONC 33.1 pg (28.0-36.0); MEAN PLATELET VOLUME 8.2 fl; NEUTROPHILE ABSOLUTE 9.2 Th/cmm (1.8-8.0); PLATELET COUNT 269 Th/cmm (150-400); RED BLOOD COUNT 2.97 Mil/cmm (3.80-5.20); RED CELL DISTRIBUTION WIDTH 16.4 % (11.5-20.0)
[2016-12-16 05:38] LABS: ANION GAP 11.1 (7.0-16.0); BUN - UREA NITROGEN 25 mg/dL (7-25); BUN/CREATININE RATIO 35.7; CALCIUM SERUM 8.4 mg/dL (8.6-10.3); CARBON DIOXIDE 22.8 mEq/L (21.0-31.0); CHLORIDE 106 mEq/L (98-107); CREATININE - SERUM 0.7 mg/dL (0.6-1.2); GLUCOSE 146 mg/dL (70-105); POTASSIUM SERUM 3.9 mEq/L (3.5-5.1); SODIUM SERUM 136 mEq/L (136-145)
[2016-12-16 05:45] LABS: WHITE BLOOD COUNT 11.5 Th/cmm (4.8-10.8)
[2016-12-16] MEDS: INSULIN ASPART SLIDING SCALE 100 UNITS/ML UNIT SUBQ SCH ×3 (05:54→18:04)
[2016-12-16] MEDS: INSULIN 70/30 100 UNITS/ML SUBQ SCH (06:47)
[2016-12-16] MEDS: Ferrous Sulfate 300 MG/5 ML UDC GT SCH ×2 (08:42→09:41)
[2016-12-16] MEDS: Levothyroxine 0.1 Mg Tab GT SCH ×2 (08:42→09:40)
[2016-12-16] MEDS: Ascorbic Acid 500 mg/5 mL UDC GT SCH ×2 (08:42→09:40)
[2016-12-16] MEDS: Hydrocodone/APAP 5mg/325mg Tab GT SCH ×2 (08:42→09:41)
[2016-12-16] MEDS: Benztropine 1 MG TAB GT SCH ×2 (08:43→16:31)
[2016-12-16] MEDS: Multivitamin Tab GT SCH (09:35)
[2016-12-16] MEDS: Levetiracetam 500 mg/5mL 5mL UDC GT SCH (09:35)
[2016-12-16] MEDS: Lactobacillus Rhamnosus 10 Billion CFU Capsule PO SCH (09:35)
[2016-12-16] MEDS: Petrolatum (White) Oint 0.6 Oz Tube TP SCH (09:42)
--- NOTE | 2016-12-16 09:52 | Internal Medicine Prog Note ---
Internal Medicine Subjective - Subjective Service Date: 12/16/16 (patient gt dislodged lastnight. ) Patient seen and examined:: with staff Patient is:: non-verbal, non-interactive Patient Complaints of:: congestion Per staff patient has:: tolerating meds Internal Medicine Objective - Results Result Diagrams: 12/16/16 05:02 12/16/16 05:02 Recent Labs: Laboratory Last Values WBC 11.5 Th/cmm (4.8-10.8) H D 12/16/16 05:02 RBC 2.97 Mil/cmm (3.80-5.20) L 12/16/16 05:02 Hgb 8.4 gm/dL (11.7-16.1) L 12/16/16 05:02 Hct 25.3 % (35.0-45.0) L 12/16/16 05:02 MCV 85.1 fl (81-100) 12/16/16 05:02 MCH 28.2 pg (27.0-31.0) 12/16/16 05:02 MCHC Differential 33.1 pg (28.0-36.0) 12/16/16 05:02 RDW 16.4 % (11.5-20.0) 12/16/16 05:02 Plt Count 269 Th/cmm (150-400) 12/16/16 05:02 MPV 8.2 fl 12/16/16 05:02 Neutrophils % 79.5 % (40.0-80.0) 12/16/16 05:02 Band Neutrophils % 4 % (0-10) 12/13/16 05:00 Lymphocytes % 11.7 % (20.0-50.0) L 12/16/16 05:02 Monocytes % 5.8 % (2.0-10.0) 12/16/16 05:02 Eosinophils % 2.7 % (0.0-5.0) 12/16/16 05:02 Basophils % 0.3 % (0.0-2.0) 12/16/16 05:02 Neutrophils (Manual) 68 % (40-80) 12/13/16 05:00 Lymphocytes 13 % (20-50) L 12/13/16 05:00 Monocytes 9 % (2-10) 12/13/16 05:00 Eosinophils 1 % (0-5) 12/13/16 05:00 Metamyelocytes 4 % (0-0) H 12/13/16 05:00 Myelocytes 1 % 12/13/16 05:00 Platelet Estimate ADEQUATE (NORMAL) 12/13/16 05:00 Platelet Morphology PLATELET CLUMPS SEEN (NORMAL) 12/13/16 05:00 Anisocytosis 1+ 12/11/16 04:32 RBC Morph Micro Appear NORMAL (NORMAL) 12/13/16 05:00 Specimen Source Arterial 12/11/16 07:44 Sample Site Right Radial 12/11/16 07:44 pH 7.48 (7.35-7.45) H 12/11/16 07:44 pCO2 41.0 mmHg (35.0-45.0) 12/11/16 07:44 pO2 86.0 mmHg (80.0-100.0) 12/11/16 07:44 HCO3 29.2 mEq/L (20.0-26.0) H 12/11/16 07:44 Base Excess 6.4 mEq/L (-3.0-3.0) H 12/11/16 07:44 O2 Saturation 97.0 % (92.0-100.0) 12/11/16 07:44 Terry Test Positive 12/11/16 07:44 Vent Rate 16 12/11/16 07:44 Inspired O2 30 12/11/16 07:44 Tidal Volume 500 12/11/16 07:44 PEEP 5 12/11/16 07:44 Pressure (ins/psv/peep) NA 12/11/16 07:44 Critical Value LZHANG 12/11/16 07:44 Sodium 136 mEq/L (136-145) 12/16/16 05:02 Potassium 3.9 mEq/L (3.5-5.1) 12/16/16 05:02 Chloride 106 mEq/L (98-107) 12/16/16 05:02 Carbon Dioxide 22.8 mEq/L (21.0-31.0) 12/16/16 05:02 Anion Gap 11.1 (7.0-16.0) 12/16/16 05:02 BUN 25 mg/dL (7-25) 12/16/16 05:02 Creatinine 0.7 mg/dL (0.6-1.2) 12/16/16 05:02 Est GFR ( Amer) TNP 12/16/16 05:02 Est GFR (Non-Af Amer) TNP 12/16/16 05:02 BUN/Creatinine Ratio 35.7 12/16/16 05:02 Glucose 146 mg/dL (70-105) H 12/16/16 05:02 POC Glucose 152 MG/DL (70 - 105) H 12/16/16 05:41 Hemoglobin A1c % 7.8 % (4.0-6.0) H 12/10/16 13:00 Whole Bld Lactic Acid 2.11 mmol/L (0.60-1.99) H* 12/10/16 15:08 Calcium 8.4 mg/dL (8.6-10.3) L 12/16/16 05:02 Total Bilirubin 0.4 mg/dL (0.3-1.0) 12/11/16 04:32 AST 37 U/L (13-39) 12/11/16 04:32 ALT 51 U/L (7-52) 12/11/16 04:32 Alkaline Phosphatase 94 U/L (34-104) 12/11/16 04:32 Troponin I 0.01 ng/mL (0.01-0.05) 12/10/16 13:00 Total Protein 7.4 gm/dL (6.0-8.3) 12/11/16 04:32 Albumin 3.2 gm/dL (3.7-5.3) L 12/11/16 04:32 Globulin 4.2 gm/dL 12/11/16 04:32 Albumin/Globulin Ratio 0.8 (1.0-1.8) L 12/11/16 04:32 Urine Source RANDOM 12/10/16 13:40 Urine Color STRAW 12/10/16 13:40 Urine Clarity CLEAR (CLEAR) 12/10/16 13:40 Urine pH 7.5 (4.6 - 8.0) 12/10/16 13:40 Ur Specific [place] <= 1.005 (1.005-1.030) 12/10/16 13:40 Urine Protein NEGATIVE mg/dL (NEGATIVE) 12/10/16 13:40 Urine Glucose (UA) NEGATIVE mg/dL (NEGATIVE) 12/10/16 13:40 Urine Ketones NEGATIVE mg/dL (NEGATIVE) 12/10/16 13:40 Urine Blood NEGATIVE (NEGATIVE) 12/10/16 13:40 Urine Nitrate NEGATIVE (NEGATIVE) 12/10/16 13:40 Urine Bilirubin NEGATIVE (NEGATIVE) 12/10/16 13:40 Urine Urobilinogen 0.2 E.U./dL (0.2 - 1.0) 12/10/16 13:40 Ur Leukocyte Esterase NEGATIVE (NEGATIVE) 12/10/16 13:40 Urine RBC NONE SEEN /hpf (0-5) 12/10/16 13:40 Urine WBC NONE SEEN /hpf (0-5) 12/10/16 13:40 Ur Epithelial Cells NONE SEEN /lpf (FEW) 12/10/16 13:40 Urine Bacteria NONE SEEN /hpf (NONE SEEN) 12/10/16 13:40 Vancomycin Trough 9.2 ug/mL (10-20) L 12/14/16 17:22 - Physical Exam Vitals and I&O: Vital Signs Temp 96.7 F 12/16/16 08:00 Pulse 75 12/16/16 09:40 Resp 16 12/16/16 08:00 BP 116/58 12/16/16 09:40 Pulse Ox 100 12/16/16 09:31 Intake & Output 12/15/16 12/16/16 12/16/16 18:59 06:59 18:59 Intake Total 900 1020 Output Total 100 400 Balance 800 620 Weight (lbs) 188 lb 1.6 oz 201 lb Intake: Intake, IV Amount 700 100 Meropenem 500 mg In 200 100 Sodium Chloride 0.9% 100 ml @ 100 mls/hr IV Q12H [facility] Rx#:[id number] Vancomycin HCl 1.5 gm In 500 Sodium Chloride 0.9% 500 ml @ 250 mls/hr IV Q24H [facility]ANC[facility]CO Rx#:[id number] Oral 0 Tube Feeding 200 720 TPN/PPN 0 Blood Product 0 Lipid 0 Albumin 0 Other 0 200 Output: Gastric Drainage 0 Urine 100 400 Stool 0 Urine/Stool Mix 0 Emesis 0 Hemodialysis 0 Other 0 Other: # Voids 1 # Bowel Movements 0 0 Active Medications: Current Medications Acetaminophen (Tylenol 650mg/20.3ml Suspension) 650 mg GT Q6HR PRN PRN Reason: Pain or Fever >101 Stop: 02/08/17 19:19 Last Admin: 12/12/16 15:41 Dose: 650 mg Acetaminophen/Hydrocodone Bitart ([place] 5mg/325mg) 1 tab GT DAILY [facility] Stop: 02/09/17 08:59 Last Admin: 12/16/16 09:41 Dose: Not Given Acetaminophen/Hydrocodone Bitart ([place] 5mg/325mg) 1 tab GT Q6H PRN PRN Reason: Pain (Severe) Stop: 02/08/17 19:19 Last Admin: 12/15/16 20:35 Dose: 1 tab Acetylcysteine (Mucomyst 20%) 2 ml HHN Q6H [facility] Stop: 02/08/17 19:19 Last Admin: 12/16/16 07:37 Dose: 2 ml Albuterol/Ipratropium (Duoneb Neb) 3 ml HHN Q2H PRN PRN Reason: Wheezing Stop: 02/08/17 19:19 Last Admin: 12/15/16 13:51 Dose: 3 ml Albuterol/Ipratropium (Duoneb Neb) 3 ml HHN Q6HRT [facility] Stop: 02/12/17 12:59 Last Admin: 12/16/16 07:36 Dose: 3 ml Allopurinol (Zyloprim) 200 mg GT DAILY [facility] Stop: 02/09/17 08:59 Last Admin: 12/16/16 09:40 Dose: Not Given Amlodipine Besylate (Norvasc) 5 mg GT DAILY [facility] Stop: 02/09/17 08:59 Last Admin: 12/16/16 09:40 Dose: Not Given Ascorbic Acid (Vitamin C) 500 mg GT DAILY [facility] Stop: 02/09/17 08:59 Last Admin: 12/16/16 09:40 Dose: Not Given Benztropine Mesylate (Cogentin) 1 mg GT BID [facility] Stop: 02/09/17 08:59 Last Admin: 12/16/16 08:43 Dose: 1 mg Carbidopa/Levodopa (Sinemet 25mg-100 Mg) 1 tab GT DAILY [facility] Stop: 02/09/17 08:59 Last Admin: 12/16/16 09:40 Dose: Not Given Chlorhexidine Gluconate (Peridex) 15 ml MM 0800,2000 [facility] Stop: 02/08/17 19:59 Last Admin: 12/15/16 19:36 Dose: 15 ml Clonazepam (Klonopin) 0.5 mg GT BID [facility] PRN Reason: Protocol Stop: 02/09/17 08:59 Last Admin: 12/16/16 09:40 Dose: Not Given Dextrose (Glutose 40%) 18.75 gm PO PRN PRN PRN Reason: Blood Glucose less than 70 Stop: 02/08/17 19:19 Dextrose (D50w) 50 ml IVP PRN PRN PRN Reason: hypoglycemia Stop: 02/09/17 08:18 Docusate Sodium (Colace) 250 mg PO BID [facility] Stop: 02/09/17 08:59 Last Admin: 12/16/16 09:41 Dose: Not Given Famotidine (Pepcid) 20 mg GT DAILY [facility] Stop: 02/09/17 08:59 Last Admin: 12/16/16 09:41 Dose: Not Given Ferrous Sulfate (Iron) 330 mg GT DAILY [facility] Stop: 02/09/17 08:59 Last Admin: 12/16/16 09:41 Dose: Not Given Glipizide (Glucotrol) 5 mg GT BID [facility] Stop: 02/09/17 08:59 Last Admin: 12/16/16 08:43 Dose: 5 mg Glucagon (Glucagen) 1 mg IM PRN PRN PRN Reason: Blood Glucose less than 70 Stop: 02/08/17 19:19 Guaifenesin/Dextromethorphan (Robitussin Dm) 5 ml GT Q6H PRN PRN Reason: Cough Stop: 02/08/17 19:19 Last Admin: 12/11/16 07:01 Dose: 5 ml Heparin Sodium (Porcine) (Heparin) 5,000 units SUBQ Q12HR [facility] Stop: 02/08/17 20:59 Last Admin: 12/16/16 08:43 Dose: 5,000 units Meropenem 500 mg/ Sodium (Chloride) 100 mls @ 100 mls/hr IV Q12H [facility] Stop: 02/10/17 17:29 Last Infusion: 12/16/16 06:10 Dose: Infused Vancomycin HCl 1.5 gm/ Sodium (Chloride) 500 mls @ 250 mls/hr IV Q24H [facility] Stop: 02/13/17 13:59 Last Infusion: 12/15/16 15:19 Dose: Infused Insulin Aspart (Novolog Insulin Sliding Scale) 0 units SUBQ Q6HR [facility] PRN Reason: Protocol Stop: 02/08/17 19:19 Last Admin: 12/16/16 05:54 Dose: 2 units Insulin Human Isoph/Insulin Regular (Novolin 70/30) 22 units SUBQ HS [facility] PRN Reason: Protocol Stop: 02/08/17 20:59 Last Admin: 12/15/16 21:14 Dose: 22 units Insulin Human Isoph/Insulin Regular (Novolin 70/30) 45 units SUBQ QDAC [facility] PRN Reason: Protocol Stop: 02/09/17 07:29 Last Admin: 12/16/16 06:47 Dose: Not Given Lactobacillus Rhamnosus (Culturelle) 1 each PO DAILY [facility] Stop: 02/10/17 08:59 Last Admin: 12/16/16 09:35 Dose: Not Given Lactulose (Cephulac) 30 gm GT DAILY PRN PRN Reason: BOWEL MANAGEMENT Stop: 02/08/17 19:19 Last Admin: 12/12/16 23:03 Dose: 30 gm Levetiracetam (Keppra) 1,000 mg GT Q12HR [facility] Stop: 02/08/17 20:59 Last Admin: 12/16/16 09:35 Dose: Not Given Levothyroxine Sodium (Synthroid) 0.1 mg GT QDAC [facility] Stop: 02/09/17 07:29 Last Admin: 12/16/16 09:40 Dose: Not Given Lisinopril (Zestril) 20 mg GT DAILY [facility] Stop: 02/09/17 08:59 Last Admin: 12/16/16 09:35 Dose: Not Given Magnesium Citrate (Citroma) 17.5 gm PO Q12HR PRN PRN Reason: Constipation Stop: 02/08/17 19:19 Metoclopramide HCl (Reglan) 10 mg GT Q6HR [facility] Stop: 02/08/17 19:19 Last Admin: 12/16/16 05:38 Dose: 10 mg Miscellaneous (Probiotic Screen) 1 ea MC PRN PRN PRN Reason: PROTOCOL Stop: 02/09/17 10:39 Miscellaneous (Vancomycin Iv Per Pharmacy) 1 ea MC PRN [facility] Stop: 02/10/17 16:29 Multivitamins/Vitamin C (Theragran) 1 tab GT DAILY [facility] Stop: 02/10/17 14:59 Last Admin: 12/16/16 09:35 Dose: Not Given Ondansetron HCl (Zofran) 4 mg IV Q8H PRN PRN Reason: Nausea / Vomiting Stop: 02/09/17 08:18 Petrolatum (Vaseline Oint) 1 appl TP DAILY [facility] Stop: 02/09/17 08:59 Last Admin: 12/16/16 09:42 Dose: Not Given Sucralfate (Carafate) 1 gm GT QID [facility] Stop: 02/08/17 20:59 Last Admin: 12/16/16 09:35 Dose: Not Given Tramadol HCl (Ultram) 50 mg GT Q6H PRN PRN Reason: Pain (Moderate) Stop: 02/08/17 19:19 Last Admin: 12/13/16 21:43 Dose: 50 mg Zinc Sulfate (Zinc Sulfate) 220 mg GT DAILY [facility] Stop: 02/09/17 08:59 Last Admin: 12/16/16 09:42 Dose: Not Given General: weak, obtunded HEENT: NC/AT, PERRLA Neck: Supple, No JVD, + trach Lungs: ronchi Cardiovascular: RRR, Normal S1, Normal S2, without murmur Abdomen: soft, non-tender Neurological: alert - Procedures Procedures: Procedures Procedure Code Date AIRWAYS SURGICAL PROCEDURE 30108 03/03/16 CHANGE GASTROSTOMY TUBE 50826 06/06/13 CONTINUOUS INVASIVE MECHANICAL VENTILATION <96 CONSEC HRS 96.71 02/02/13 CONTINUOUS INVASIVE MECHANICAL VENTILATION =/>96 CONSEC HRS 96.72 06/06/13 [place] [id number] 03/03/16 IMMUNIZATION ADMIN [id number] 03/03/16 INFLUENZA VACCINATION 99.52 02/02/13 INSERT NON-TUNNEL CV CATH [id number] 03/03/16 INSERT PICC CATH [id number] 02/02/13 INSERTION OF INFUSION DEV INTO SUP VENA CAVA, PERC APPROACH [id number] 03/03/16 INTRODUCTION OF SERUM/TOX/VACCINE INTO MUSCLE, PERC APPROACH [id number] 03/03/16 OTHER GASTROSTOMY 43.19 06/03/10 REPLACE GASTROSTOMY TUBE 97.02 06/06/13 RESPIRATORY VENTILATION, GREATER THAN 96 CONSECUTIVE HOURS [id number] 12/10/16 VACCINATION NEC 99.55 02/02/13 VENOUS CATHETERIZATION NEC 38.93 02/02/13 VENT MGMT INPAT INIT DAY 16595 03/03/16 VENT MGMT INPAT SUBQ DAY 38966 03/03/16 Internal Medicine Assmt/Plan - Assessment Assessment: Lactic Acidosis PSEUDOMONAS sputum Fever Sepsis Uncontrolled Glucose Level Acute on chronic respiratory failure Vdrf seizure decubitus ulcer morbid obesity parkinsons dm2 - Plan Plan: gi consult for peg placement ivf for hydration til, peg is placed continue ivabx vent support monitor glucose montor for fever am labs Nutritional Asmnt/Malnutr-PDOC - Dietary Evaluation Malnutrition Findings (Please click <Entered> for more info): Nutritional Asmnt/Malnutrition Start: 12/12/16 10: 48 Text: Status: Complete Freq: Document 12/12/16 15:50 [facility] (Rec: 12/12/16 16:56 [facility] [id number]) Nutritional Asmnt/Malnutrition Patient General Information Nutritional Screening Consult Diagnosis Rule out sepsis, lactic acidosis, uncontrolled glucose level Pertinent Medical Hx/Surgical Hx Chronic hydrocephalus, seizures, VDRF, previous pneumonia, decubitus ulceration, morbid obesity, Parkinson's disease, DM2 Subjective Information Nutrition Consult for sacral wound received and completed. Pt is a 81-year-old female from [facility] admitted with chief complaint of fever for 3 days. Pt has tracheostomy to ventilator; unable to provide hx. Pt appears well nourished with no signs of muscle or fat depletion. RD verified Diabetisource AC infusing at 50 ml/hr during time of visit. Current Diet Order/ Nutrition Support Diabetisource AC at 50 ml/hr = 1440kcal, 72gm protein, 982 ml free water Patient / S.O Can't verbalize diet edu Pertinent Medications Vitamin C, Cetriaxone Sodium, Colace, Pepcid, Iron, Glucotrol, Novolog, Novolin 70 /30, Culturelle, Replan, Theragran, NaCl 0.9%, Zinc Sulfate Pertinent Labs (12/10) Glucose 356H, A1C 7.8H, (12/12) Na 133L, Glucose 308H, POC Glucose 268H-287H Nutritional Hx/Data Height 4 ft 11 in Height (Calculated Centimeters) 149.9 Current Weight (lbs) 207 lb 2 oz Weight (Calculated Kilograms) 94.0 Weight (Calculated Grams) 94165.3 Abbott Body Weight 97.5 % Abbott Body Weight 212 Weight Status Morbidly Obese GI Symptoms GI Symptoms None Difficult in: Chewing Swallowing Food Allergies No Usual diet at home Diabetisource AC at 60 ml/hr x 20 hours between 4734-3796, 250 ml water Q6 Skin Integrity/Comment: Germán 11. Old scar and healing decubitus ulcer to sacral-coccygeal area. Estimated Nutritional Goals BEE in Kcals: Using Current wt Calories/Kcals/Kg Based on current wt 94.1 kg with consideration of obesity, wound, vent Kcals Calculated 4235-9419 kcals/day ([place] St Jeor x 1.2-1.3) Protein: Using Current wt Protein g/kg: Based on current wt 94.1 kg with consideration of obesity, wound, vent Protein Calculated 94-122 gm/day (1-1.3 gm/kg) Fluid: ml 1618-3433 ml/day (1 ml/kcal) Nutritional Problem 1. Problem Problem Increased protein needs related to Etiology altered skin integrity as evidenced by Signs/Symptoms: decubitus ulcer to sacral- coccygeal area, per RN notes. Malnutrition Alert Protein-Calorie Malnutrition N/A Is there a minimum of two criteria No selected? Query Text:Check all the applicable criteria. A minimum of two criteria are recommended for diagnosis of either severe or non-severe malnutrition. Malnutrition Related to Morbid Obesity Malnutrition related to morbid obesity BMI> or equal to 40 Query Text:(Any 1 Criteria met) Malnutrition related to morbid obesity Yes Intervention/Recommendation Comments 1. Recommend increase Diabetisource AC to goal rate of 60 ml/hr to provide 1728 kcals, 86 gm protein, and 1178 ml free water per day. 2. Recommend one packet of Prosource daily via PEG to provide additional 15 gm protein to better meet estimated protein needs. Expected Outcomes/Goals Expected Outcomes/Goals Provide pt with 100% of estimated nutritional needs to promote wound healing. Physician Parameters for PEM Serum Albumin (g/dl) 3.1 - 3.4 (Mild)
[2016-12-16] MEDS: Chlorhexidine Gluconate 0.12% 15mL Mouthwash MM SCH (09:56)
[2016-12-16] MEDS ORDERED: D5-0.9%NS 1,000 ML IV SCH ×2 (10:00→12:18)
[2016-12-16] MEDS: Vancomycin HCl 1.5 GM in Sodium Chloride 0.9% 500 ML IV SCH (15:32)
--- NOTE | 2016-12-16 16:00 | Operative Report ---
DATE OF SURGERY: 12/16/2016 PROCEDURE: Change of G-tube. INDICATION FOR PROCEDURE: Malfunctioning G-tube. The patient with a G-tube that fell out, the whole balloon came out ____. PREOPERATIVE DIAGNOSIS: Malfunctioning G-tube. POSTOPERATIVE DIAGNOSES: Malfunctioning G-tube status post change. DESCRIPTION OF PROCEDURE: Site was cleaned, then a new replacement tube size 20 was inserted through the hole. Tube went straight to the stomach. Tube was secured in place. It was tested outside first so it was good and it was secured and placed by inflating the balloon with 20 mL of water. Water was infused to the stomach and aspirated again documenting it is in a good position. RECOMMENDATIONS: 1. Resume feeding. 2. If started to leak, then consider bigger one next week. Meanwhile connected to gravity. Thank you, Dr. Garza and Chelsie Wan for allowing me to participate in the care of this patient. If you have any further questions, please let me know. JOB# [id number]
== END 2016-12-16 19:20 | disposition home or self-care (01) | DRG 870 ==
LOC: ER 12:29 → ICU 16:54
PROVIDERS: ADMIT Internal Medicine; ATTEND Internal Medicine
PROC: 5A1955Z Respiratory Ventilation, Greater than 96 Consecutive Hours (ICD-10-PCS; principal; 2016-12-10)
PROC: 0D20XUZ Change Feeding Device in Upper Intestinal Tract, External Approach (ICD-10-PCS; 2016-12-16)
DX: A41.9 Sepsis, unspecified organism (principal); J96.20 Acute and chronic respiratory failure, unspecified whether with hypoxia or hypercapnia; Z99.11 Dependence on respirator [ventilator] status; L89.159 Pressure ulcer of sacral region, unspecified stage; J44.0 Chronic obstructive pulmonary disease with (acute) lower respiratory infection; J15.1 Pneumonia due to Pseudomonas; G91.8 Other hydrocephalus; E11.65 Type 2 diabetes mellitus with hyperglycemia; E87.1 Hypo-osmolality and hyponatremia; G40.909 Epilepsy, unspecified, not intractable, without status epilepticus; G20 Parkinson's disease; E66.01 Morbid (severe) obesity due to excess calories; G30.9 Alzheimer's disease, unspecified; E03.9 Hypothyroidism, unspecified; K27.9 Peptic ulcer, site unspecified, unspecified as acute or chronic, without hemorrhage or perforation; I10 Essential (primary) hypertension; F02.80 Dementia in other diseases classified elsewhere, unspecified severity, without behavioral disturbance, psychotic disturbance, mood disturbance, and anxiety; R13.10 Dysphagia, unspecified; Y83.8 Other surgical procedures as the cause of abnormal reaction of the patient, or of later complication, without mention of misadventure at the time of the procedure; Y92.89 Other specified places as the place of occurrence of the external cause; Z93.0 Tracheostomy status; Z86.73 Personal history of transient ischemic attack (TIA), and cerebral infarction without residual deficits; Z68.39 Body mass index [BMI] 39.0-39.9, adult
CPT/HCPCS: 36415-UA; 36600-90; 71010-TC; 80048-TC; 80053-TC; 80150-TC; 80202-TC; 81001-TC; 82803-TC; 82948-90; 83036-90; 83605; 84484-TC; 85007-TC; 85025-TC; 85027-TC; 87070; 93005; 94002; 94003; J0278; J0696; J1644; J1815; J1956; J2185; J3370; J7030; J7040; J7042; X7704; Z7610

== ENCOUNTER 2017-09-27 10:49 | Inpatient (IN) | payer MEDICARE, OTHER ==
[2017-09-27 11:21] LABS: % BASOPHILS 0.3 % (0.0-2.0); EOSINOPHILE ABSOLUTE 0.4 Th/cmm (0.1-0.4); LYMPHOCYTE ABSOLUTE 1.3 Th/cmm (1.5-3.0); MONOCYTE ABSOLUTE 0.5 Th/cmm (0.3-1.0)
[2017-09-27 11:23] LABS: % EOSINOPHILS 3.5 % (0.0-5.0); % MONOCYTES 4.7 % (2.0-10.0); % NEUTROPHILS 79.5 % (40.0-80.0); HEMATOCRIT 21.9 % (41.0-60); MEAN CELL VOLUME 76.6 fl (81-100); MEAN CORPUSCULAR HEMOGLOBIN 25.5 pg (27.0-31.0); MEAN CORPUSCULAR HGB CONC 33.4 pg (28.0-36.0); MEAN PLATELET VOLUME 7.4 fl; NEUTROPHILE ABSOLUTE 8.9 Th/cmm (1.8-8.0); PLATELET COUNT 367 Th/cmm (150-400); RED BLOOD COUNT 2.86 Mil/cmm (3.80-5.20); RED CELL DISTRIBUTION WIDTH 16.5 % (11.5-20.0); WHITE BLOOD COUNT 11.1 Th/cmm (4.8-10.8)
[2017-09-27 11:27] LABS: HEMOGLOBIN 7.3 gm/dL (12-16)
[2017-09-27 11:30] LABS: INR 1.1 (0.5-1.4); PROTHROMBIN TIME (TEST) 11.5 SECONDS (9.5-11.5)
[2017-09-27 11:34] LABS: ALBUMIN 3.9 gm/dL (3.7-5.3); ANION GAP 13.4 (7.0-16.0); BUN - UREA NITROGEN 53 mg/dL (7-25); CALCIUM SERUM 9.7 mg/dL (8.6-10.3); CARBON DIOXIDE 29.1 mEq/L (21.0-31.0); CHLORIDE 96 mEq/L (98-107); CREATININE - SERUM 1.1 mg/dL (0.6-1.2); GLUCOSE 157 mg/dL (70-105); POTASSIUM SERUM 3.5 mEq/L (3.5-5.1); SODIUM SERUM 135 mEq/L (136-145); TOTAL PROTEIN,SERUM 8.5 gm/dL (6.0-8.3)
[2017-09-27 11:35] LABS: ALB/GLOB RATIO 0.9 (1.0-1.8); ALKALINE PHOSPHATASE 134 U/L (34-104); BILIRUBIN,TOTAL 0.2 mg/dL (0.3-1.0); CREATININE KINASE 308 U/L (30-223); SGOT 28 U/L (13-39); SGPT/ALT 20 U/L (7-52)
[2017-09-27 11:36] LABS: TROP I 0.01 ng/mL (0.01-0.05)
[2017-09-27] MEDS ORDERED: Levofloxacin 500mg/100mL 500 MG/100 ML BAG IV ONE ×2 (11:45→11:59)
--- NOTE | 2017-09-27 11:51 | ED Physician Chart ---
ED Chief Complaint/HPI - Patient Information Date Seen:: 09/27/17 Time Seen:: 11:00 Chief Complaint:: Abnormal Labs History of Present Illness:: onset x one day of ALOC and AMS with abnormal labs this am; no report of trauma , H/As, S/T, neck pain, C/P, SOB, Abd. Pain, A/N/V/D/C, fever, chills, or urinary s/s Allergies:: Allergies Allergy/AdvReac Type Severity Reaction Status Date / Time No Known Allergies Allergy Verified 03/03/16 18:27 Vitals:: Vital Signs - 8 hr 09/27/17 09/27/17 11:00 11:11 Temp 98.2 F HR 72 76 RR 16 BP 109/41 O2 Sat % 100 100 Historian:: Patient, EMS Review:: Nurse's Note Reviewed, Old Chart Reviewed, EMS run form Reviewed ED Review of Systems - Review of Systems General/Constitutional: Fever, No chills, No weight loss, No weakness, No diaphoresis, No edema, No loss of appetite Skin: No skin lesions, No rash, No bruising Head: No headache, No light-headedness Eyes: No loss of vision, No pain, No diplopia ENT: No earache, Nasal drainage, No sore throat, No tinnitus Neck: No neck pain, No swelling, No thyromegaly, No stiffness, No mass noted Cardio Vascular: No chest pain, No palpitations, No PND, No orthopnea, No edema Pulmonary: SOB, Cough, No sputum, No wheezing GI: No nausea, No vomiting, No diarrhea, No pain, No melena, No hematochezia, No constipation, No hematemesis G/U: No dysuria, No frequency, No hematuria, No nacturia 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, No abnormal vaginal bleed, No contraction Musculoskeletal: No bone or joint pain, No back pain, No muscle pain Endocrine: No polyuria, No polydipsia Psychiatric: No prior psych history, No depression, No anxiety, No suicidal ideation, No homicidal ideation, No auditory hallucination, No visual hallucination Hematopoietic: No bruising, No lymphadenopathy Allergic/Immuno: No urticaria, No angioedema Neurological: No syncope, No focal symptoms, No weakness, No paresthesia, No headache, No seizure, No dizziness, No confusion, No vertigo ED Past Medical History - Past Medical History Obtainable: Yes Past Medical History: HTN, DM, Asthma/COPD, Dyslipidemia, Arthritis, Other ( Respiratory Failure) Family History: Diabetes Melitus, HTN Social History: Non Smoker, No Alcohol, No Drug Use, , Care Facility Surgical History: other (Tracheostomy) Psychiatricy History: None Medication: Reviewed Family Medical History - Family Member Mother History Unknown: Yes Ethnicity: Living Status: Unknown ED Physical Exam - Physical Examination General/Constitutional: Awake, Well-developed, well-nourished, Alert, No distress, GCS 15, Non-toxic appearing, Ambulatory Head: Atraumatic Eyes: Lids, conjuctiva normal, PERRL, EOMI Skin: Nl inspection, No rash, No skin lesions, No ecchymosis, Well hydrated, No lymphadenopathy ENMT: External ears, nose nl, TM canals nl, Nasal exam nl, Lips, teeth, gums nl , Oropharynx nl, Tonsils nl Neck: Nontender, Full ROM w/o pain, No JVD, No nuchal rigidity, No bruit, No mass, No stridor Respiratory: Nl effort/Exclusion Other Respiratory comments:: Lungs: + Rales and Rhonchi Cardio Vascular: RRR, No murmur, gallop, rubs, NL S1 S2, Carotid/Femoral/Distal pulses equal bilaterally GI: No tenderness/rebounding/guarding, No organomegaly, No hernia, Normal BS's, Nondistended, No mass/bruits, No McBurney tenderness Other GI comments:: no pulsatile masses : No CVA tenderness Extremities: No tenderness or effusion, Full ROM, normal strength in all extremities, No edema, Normal digits & nails Neuro/Psych: Alert/oriented, DTR's symmetric, Normal sensory exam, Normal motor strength, Judgement/insight normal, Mood normal, Normal gait, No focal deficits Misc: Normal back, No paraspinal tenderness ED Labs/Radiology/EKG Results - Lab Results Results: Laboratory Tests 09/27/17 09/27/17 09/27/17 11:09 11:09 11:09 WBC 11.1 H RBC 2.86 L Hgb 7.3 L* Hct 21.9 L MCV 76.6 L MCH 25.5 L MCHC Differential 33.4 RDW 16.5 Plt Count 367 MPV 7.4 Neutrophils % 79.5 Lymphocytes % 12.0 L Monocytes % 4.7 Eosinophils % 3.5 Basophils % 0.3 PT 11.5 INR 1.10 PTT (Actin FS) 24.9 L Sodium 135 L Potassium 3.5 Chloride 96 L Carbon Dioxide 29.1 Anion Gap 13.4 BUN 53 H Creatinine 1.1 Est GFR ( Amer) TNP Est GFR (Non-Af Amer) TNP BUN/Creatinine Ratio 48.2 Glucose 157 H Whole Bld Lactic Acid Calcium 9.7 Total Bilirubin 0.2 L AST 28 ALT 20 Alkaline Phosphatase 134 H Creatine Kinase 308 H Total Protein 8.5 H Albumin 3.9 Globulin 4.6 Albumin/Globulin Ratio 0.9 L 09/27/17 11:09 WBC RBC Hgb Hct MCV MCH MCHC Differential RDW Plt Count MPV Neutrophils % Lymphocytes % Monocytes % Eosinophils % Basophils % PT INR PTT (Actin FS) Sodium Potassium Chloride Carbon Dioxide Anion Gap BUN Creatinine Est GFR ( Amer) Est GFR (Non-Af Amer) BUN/Creatinine Ratio Glucose Whole Bld Lactic Acid 2.12 H* Calcium Total Bilirubin AST ALT Alkaline Phosphatase Creatine Kinase Total Protein Albumin Globulin Albumin/Globulin Ratio Comments:: H/H: + Anemia; LA: Elevated; WBC: 11.1 - Radiology Results Comments:: CXR: + LLL Infiltrate - EKG Interpretations EKG Time:: 11:10 Rate & Rhythm: 75; NSR Comments:: non-specific st-t changes ED Septic Shock - . Is Septic Shock (SBP<90, OR Lactate>4 mmol\L) present?: No - <6hrs of presentation: Vital Signs: Vital Signs - 8 hr 09/27/17 09/27/17 11:00 11:11 Temp 98.2 F HR 72 76 RR 16 BP 109/41 O2 Sat % 100 100 ED Reassessment (Disposition) - Reassessment Reassessment Condition:: Improved - Diagnosis Diagnosis:: Dx: Dehydration; Anemia; PNA; Sepsis; Respiratory Failure - Aftercare/Follow up Instructions Aftercare/Follow-Up Instructions:: Counseled pt regarding lab results/diagnosis & need follow up, Counseled pt & family regarding lab results/diagnosis & need follow up - Patient Disposition Discharge/Transfer:: Acute Care w/in this hosp Accepting Physician:: Dr. Garza Time Called:: 1140 Time Responded:: 11:40 Admitted to:: ICU Spoke to:: Dr. Garza Admitting Medical Physician:: Dr. Garza Condition at Disposition:: Stable, Improved
[2017-09-27 12:17] LABS: URINE MICROSCOPIC INDICATED? YES; URINE SOURCE MIDSTREAM
[2017-09-27 12:26] LABS: URINE BILIRUBIN NEGATIVE (NEGATIVE); URINE BLOOD LARGE (NEGATIVE); URINE GLUCOSE (UA) NEGATIVE (NEGATIVE); URINE KETONE NEGATIVE (NEGATIVE); URINE LEUKOCYTE ESTERASE MODERATE (NEGATIVE); URINE NITRATE NEGATIVE (NEGATIVE); URINE PH 6.5 (4.6 - 8.0); URINE PROTEIN 30 mg/dL (NEGATIVE); URINE UROBILINOGEN 0.2 E.U./dL (0.2 - 1.0)
[2017-09-27 12:27] LABS: URINE CLARITY HAZY (CLEAR); URINE COLOR YELLOW
[2017-09-27] MEDS ORDERED: Lactulose 10 Gm/15 mL 30mL UDC GT PRN (12:27)
[2017-09-27] MEDS ORDERED: Morphine Sulfate 4 mg/mL 1mL Syr IVP PRN (12:29)
[2017-09-27] MEDS ORDERED: Albuterol/Ipratropium Neb 3 ML AERS HHN PRN (12:31)
[2017-09-27 12:39] LABS: URINE RBC 25-50 /hpf (0-5)
[2017-09-27 12:40] LABS: URINE BACTERIA 3+ /hpf (NONE SEEN); URINE EPITHELIAL CELLS MODERATE /lpf (FEW)
--- NOTE | 2017-09-27 13:39 | Diagnostic Imaging Report ---
CHEST X-RAY: AP view INDICATION: pain COMPARISON: 12/14/2016 FINDINGS: Tracheostomy tube is noted. Low lung volumes are seen with increased bibasilar lung markings. There may be a small left effusion. No focal consolidation identified. Heart size is within normal limits. Degenerative changes of the spine are noted. IMPRESSION: Lower lung volumes with increased increased bibasilar lung markings favoring atelectatic changes. There may be a small left effusion. No focal consolidation is identified.
[2017-09-27] MEDS ORDERED: Sodium Chloride 0.9% 1,000 ML IV ONE (14:29)
[2017-09-27] MEDS ORDERED: Ipratropium Neb 0.5 mg/2.5 mL UD IH SCH (15:00)
[2017-09-27] MEDS ORDERED: Albuterol Nebulizer 2.5mg/3mL HHN SCH (15:00)
[2017-09-27] MEDS: Albuterol/Ipratropium Neb 3 ML AERS HHN SCH ×2 (15:09→18:54)
[2017-09-27] MEDS: D5-0.45NS 1,000 ML IV SCH (15:17)
[2017-09-27 15:38] VITALS: BP 124/56
--- NOTE | 2017-09-27 16:53 | History & Physical ---
ADMIT DATE: 09/27/2017 CHIEF COMPLAINT: Fever and low hemoglobin. 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 The patient was seen in the ER and noted to have elevated lactic acid and elevated white count of the patient with infiltrates on chest x-ray. PAST MEDICAL HISTORY: As mentioned in history of present illness. PAST SURGICAL HISTORY: Status post YARN MERCERIZER OPERATOR shunt as well as a G-tube and trach. ALLERGIES: No known drug allergies. MEDICATIONS: Insulin sliding scale, Lantus insulin, simvastatin, multivitamins, Tylenol, aspirin, Sinemet, albuterol, Atrovent, glipizide, Norvasc, Cogentin, famotidine, iron, [place], lactobacillus, Keppra, Reglan, and tramadol. FAMILY HISTORY: Noncontributory. SOCIAL HISTORY: The patient is a half-way patient requiring 24-hour total care. REVIEW OF SYSTEMS: This is limited secondary to the patient's current mental state. Some information we got from the son, Jean Paul, who is on [phone], as well as nursing staff at [facility] and from Dr. Henriquez. PHYSICAL EXAMINATION: VITAL SIGNS: Blood pressure 100/53, respiration 16, pulse 68, temperature 97.2. GENERAL: Elderly female, appears her stated age. Positive trach, chronically ill. NECK: Supple. No mass. LUNGS: Equal breath sounds, few rhonchi. HEART: Regular rate and rhythm. Systolic ejection murmur. ABDOMEN: Soft, globular. EXTREMITIES: Positive excoriations. ____ stage 3 decubitus. NEUROLOGIC: Limited. LABORATORY DATA: WBC 11.9, hemoglobin 7.3, platelets 367. INR 1.1. Sodium 131, potassium 3.5, BUN 53, creatinine 1.1, lactic acid, 2.21, alkaline phosphatase 134, albumin 3.9. UA, 10 wbc and 3+ bacteria. ASSESSMENT AND PLAN: 1. Sepsis secondary to pneumonia. 2. Urinary tract infection. 3. Anemia. 4. Possible gastrointestinal bleeding. 5. Ventilator dependent respiratory failure. 6. Chronic hydrocephalus. 7. Dementia. 8. Decubitus ulcer stage 3. 9. Diabetes. 10. Obesity. 11. Parkinson. 12. Leukocytosis. 13. Renal insufficiency. We will transfer the patient with 1 unit secondary to elevated heart rate and sepsis and continue p.o. and IV antibiotic. We will follow the patient's blood culture. We will review the chest x-ray. We will send sputum for Gram stain, C and S. We will order for the patient ____. Continue with current care with followup consult and recommendations. JOB# [id number]
[2017-09-27] MEDS: Benztropine 1 MG TAB GT SCH (18:15)
[2017-09-27] MEDS: INSULIN ASPART, RECOMBINANT 100 UNITS/ML SUBQ SCH ×2 (18:15→21:44)
[2017-09-27] MEDS: Lactobacillus Rhamnosus GG 15 Billion CFU CAP.SPRINK GT SCH (18:16)
[2017-09-27] MEDS: Docusate Sodium 100 mg/10 mL UD GT SCH (18:16)
[2017-09-27] MEDS ORDERED: Norepinephrine 4 mg/4mL Vial IV ONE (21:57)
[2017-09-27] MEDS: INSULIN 70/30 100 UNITS/ML SUBQ SCH (22:13)
[2017-09-27] MEDS: Levetiracetam 500 mg/5mL 5mL UDSyr *for ORAL USE ONLY GT SCH (22:14)
[2017-09-28] MEDS: Albuterol/Ipratropium Neb 3 ML AERS HHN SCH ×4 (00:31→18:29)
[2017-09-28] MEDS: Levothyroxine 0.1 Mg Tab GT SCH (06:36)
[2017-09-28] MEDS: INSULIN ASPART, RECOMBINANT 100 UNITS/ML SUBQ SCH ×4 (07:33→20:52)
[2017-09-28] MEDS: Hydrocodone/APAP 5mg/325mg Tab GT SCH (09:00)
[2017-09-28] MEDS: INSULIN 70/30 100 UNITS/ML SUBQ SCH ×2 (09:00→20:52)
[2017-09-28] MEDS ORDERED: FAMOTIDINE GT SCH (09:00)
[2017-09-28] MEDS: Levetiracetam 500 mg/5mL 5mL UDSyr *for ORAL USE ONLY GT SCH ×2 (09:32→20:20)
[2017-09-28] MEDS: Ferrous Sulfate 300 MG/5 ML UDC GT SCH (09:33)
[2017-09-28] MEDS: Lactobacillus Rhamnosus GG 15 Billion CFU CAP.SPRINK GT SCH (09:34)
[2017-09-28] MEDS: Multivitamin w/ Minerals Tab GT SCH (09:35)
[2017-09-28] MEDS: Docusate Sodium 100 mg/10 mL UD GT SCH ×2 (10:22→16:44)
[2017-09-28] MEDS: Benztropine 1 MG TAB GT SCH ×2 (10:23→16:43)
[2017-09-28] MEDS: D5-0.45NS 1,000 ML IV SCH ×2 (10:30→22:59)
--- NOTE | 2017-09-28 13:18 | Consultation ---
DATE OF CONSULTATION: 09/27/[address] Garza. Thank you very much Dr. Garza for this consultation. HISTORY OF PRESENT ILLNESS: This is an 81-year-old female well known to me with history of hypertension, diabetes, chronic respiratory failure, ventilator dependent, and CVA; presented with a severe anemia, admitted for further treatment and management. The patient unable to give any further history. Lactic acid was a little bit elevated with some leukocytosis. PAST MEDICAL HISTORY: As above. SOCIAL HISTORY: [facility] resident. No history of smoking or drinking. REVIEW OF SYSTEMS: Unable to obtain. PHYSICAL EXAMINATION: GENERAL: The patient is arousable, not in any acute distress. VITAL SIGNS: Temperature is 97.2, pulse 68, respirations 16, blood pressure 94/56, and saturation 100%. HEENT: Atraumatic, normocephalic. Pupils are equal and reactive to light and accommodation. Ears, nose and throat normal. NECK: Supple. No JVD. CHEST: There is fair entry, few rhonchi in bases. HEART: Regular rhythm. ABDOMEN: Soft. EXTREMITIES: No edema. LABORATORY DATA: WBC is 11.1, hemoglobin 7.3, hematocrit 21.9, and platelets 367. Sodium 135, potassium 3.5, BUN 53, and creatinine 1.1. Lactic acid 2.21. UA shows large blood and moderate leukocyte esterase and WBCs and RBCs. Chest x-ray, minimal infiltrate versus effusion in the left base, otherwise clear. IMPRESSION: 1. This is an 81-year-old female with a severe anemia, rule out gastrointestinal bleed. 2. Urinary tract infection. 3. Early pneumonia. PLAN: 1. IV antibiotics. 2. Nebulizer treatment. 3. Blood transfusion. 4. Ventilator support. 5. GI evaluation. Thank you very much for this consultation. We will follow the patient with you. JOB# [id number]
[2017-09-28] MEDS: Petrolatum (White) Oint 0.6 Oz Tube TP SCH (13:21)
--- NOTE | 2017-09-28 15:51 | Internal Medicine Prog Note ---
Internal Medicine Subjective - Subjective Service Date: 09/28/17 (ON LEVOPHED 4MCG/MIN) Patient seen and examined:: with staff Patient is:: awake Per staff patient has:: tolerating meds Internal Medicine Objective - Results Result Diagrams: 09/27/17 11:09 09/27/17 11:09 Recent Labs: Laboratory Last Values WBC 11.1 Th/cmm (4.8-10.8) H 09/27/17 11:09 RBC 2.86 Mil/cmm (3.80-5.20) L 09/27/17 11:09 Hgb 7.3 gm/dL (12-16) L* 09/27/17 11:09 Hct 21.9 % (41.0-60) L 09/27/17 11:09 MCV 76.6 fl (81-100) L 09/27/17 11:09 MCH 25.5 pg (27.0-31.0) L 09/27/17 11:09 MCHC Differential 33.4 pg (28.0-36.0) 09/27/17 11:09 RDW 16.5 % (11.5-20.0) 09/27/17 11:09 Plt Count 367 Th/cmm (150-400) 09/27/17 11:09 MPV 7.4 fl 09/27/17 11:09 Neutrophils % 79.5 % (40.0-80.0) 09/27/17 11:09 Lymphocytes % 12.0 % (20.0-50.0) L 09/27/17 11:09 Monocytes % 4.7 % (2.0-10.0) 09/27/17 11:09 Eosinophils % 3.5 % (0.0-5.0) 09/27/17 11:09 Basophils % 0.3 % (0.0-2.0) 09/27/17 11:09 PT 11.5 SECONDS (9.5-11.5) 09/27/17 11:09 INR 1.10 (0.5-1.4) 09/27/17 11:09 PTT (Actin FS) 24.9 SECONDS (26.0-38.0) L 09/27/17 11:09 Sodium 135 mEq/L (136-145) L 09/27/17 11:09 Potassium 3.5 mEq/L (3.5-5.1) 09/27/17 11:09 Chloride 96 mEq/L (98-107) L 09/27/17 11:09 Carbon Dioxide 29.1 mEq/L (21.0-31.0) 09/27/17 11:09 Anion Gap 13.4 (7.0-16.0) 09/27/17 11:09 BUN 53 mg/dL (7-25) H 09/27/17 11:09 Creatinine 1.1 mg/dL (0.6-1.2) 09/27/17 11:09 Est GFR ( Amer) TNP 09/27/17 11:09 Est GFR (Non-Af Amer) TNP 09/27/17 11:09 BUN/Creatinine Ratio 48.2 09/27/17 11:09 Glucose 157 mg/dL (70-105) H 09/27/17 11:09 POC Glucose 196 MG/DL (70 - 105) H 09/28/17 12:54 Whole Bld Lactic Acid 2.21 mmol/L (0.60-1.99) H* 09/27/17 13:10 Calcium 9.7 mg/dL (8.6-10.3) 09/27/17 11:09 Total Bilirubin 0.2 mg/dL (0.3-1.0) L 09/27/17 11:09 AST 28 U/L (13-39) 09/27/17 11:09 ALT 20 U/L (7-52) 09/27/17 11:09 Alkaline Phosphatase 134 U/L (34-104) H 09/27/17 11:09 Creatine Kinase 308 U/L (30-223) H 09/27/17 11:09 CK-MB (CK-2) 10.6 ng/mL (0.6-6.3) H 09/27/17 11:09 Troponin I 0.01 ng/mL (0.01-0.05) 09/27/17 11:09 Total Protein 8.5 gm/dL (6.0-8.3) H 09/27/17 11:09 Albumin 3.9 gm/dL (3.7-5.3) 09/27/17 11:09 Globulin 4.6 gm/dL 09/27/17 11:09 Albumin/Globulin Ratio 0.9 (1.0-1.8) L 09/27/17 11:09 Urine Source MIDSTREAM 09/27/17 11:50 Urine Color YELLOW 09/27/17 11:50 Urine Clarity HAZY (CLEAR) 09/27/17 11:50 Urine pH 6.5 (4.6 - 8.0) 09/27/17 11:50 Ur Specific [place] 1.010 (1.005-1.030) 09/27/17 11:50 Urine Protein 30 mg/dL (NEGATIVE) H 09/27/17 11:50 Urine Glucose (UA) NEGATIVE mg/dL (NEGATIVE) 09/27/17 11:50 Urine Ketones NEGATIVE mg/dL (NEGATIVE) 09/27/17 11:50 Urine Blood LARGE (NEGATIVE) H 09/27/17 11:50 Urine Nitrate NEGATIVE (NEGATIVE) 09/27/17 11:50 Urine Bilirubin NEGATIVE (NEGATIVE) 09/27/17 11:50 Urine Urobilinogen 0.2 E.U./dL (0.2 - 1.0) 09/27/17 11:50 Ur Leukocyte Esterase MODERATE (NEGATIVE) H 09/27/17 11:50 Urine RBC 25-50 /hpf (0-5) H 09/27/17 11:50 Urine WBC 6-10 /hpf (0-5) H 09/27/17 11:50 Ur Epithelial Cells MODERATE /lpf (FEW) 09/27/17 11:50 Urine Bacteria 3+ /hpf (NONE SEEN) H 09/27/17 11:50 Blood Type A POSITIVE 09/27/17 13:10 Antibody Screen NEGATIVE 09/27/17 13:10 Crossmatch See Detail 09/27/17 13:10 - Physical Exam Vitals and I&O: Vital Signs Temp 99 F 09/28/17 14:00 Pulse 97 09/28/17 14:20 Resp 16 09/28/17 14:00 BP 114/46 09/28/17 14:00 Pulse Ox 100 09/28/17 14:20 Intake & Output 09/27/17 09/28/17 09/28/17 18:59 06:59 18:59 Intake Total 200 1585.636 Output Total 800 950 Balance -600 635.636 Weight (lbs) 165 lb 165 lb Intake: Intake, IV Amount 50 1185.636 Cefepime 1 gm In Dextrose 50 50 5% 50 ml @ 100 mls/hr IV Q12H [facility] Rx#:[id number] D5-0.45NS 1,000 ml @ 80 1000 mls/hr IV .[id number] [facility] Rx #:[id number] Norepinephrine 4 mg In 135.636 Dextrose 5% 250 ml @ 8 MCG/MIN 30.48 mls/hr IV TITR PRN Rx#:[id number] Blood Product 250 Other 150 150 Output: Urine 800 950 Other: # Bowel Movements 1 0 Stool Characteristics Soft Green Weight Source Bedscale Bedscale Active Medications: Current Medications Acetaminophen (Tylenol 650mg/20.3ml Suspension) 650 mg GT Q6HR PRN PRN Reason: Mild Pain or Fever >101 Stop: 11/26/17 13:59 Acetaminophen/Hydrocodone Bitart ([place] 5mg/325mg) 1 tab GT DAILY [facility] Stop: 11/27/17 08:59 Last Admin: 09/28/17 09:00 Dose: Not Given Acetylcysteine (Mucomyst 20%) 2 ml HHN Q6HRT [facility] Stop: 11/26/17 18:59 Last Admin: 09/28/17 14:21 Dose: Not Given Albuterol/Ipratropium (Duoneb Neb) 3 ml HHN Q2HRT PRN PRN Reason: Wheezing Stop: 11/26/17 12:30 Albuterol/Ipratropium (Duoneb Neb) 3 ml HHN Q6HRT [facility] Stop: 11/26/17 12:59 Last Admin: 09/28/17 14:19 Dose: 3 ml Allopurinol (Zyloprim) 200 mg GT DAILY [facility] Stop: 11/27/17 08:59 Last Admin: 09/28/17 09:33 Dose: 200 mg Amlodipine Besylate (Norvasc) 5 mg GT DAILY [facility] Stop: 11/27/17 08:59 Last Admin: 09/28/17 09:00 Dose: Not Given Ascorbic Acid (Vitamin C) 500 mg GT DAILY [facility] Stop: 11/27/17 08:59 Last Admin: 09/28/17 09:34 Dose: 500 mg Benztropine Mesylate (Cogentin) 1 mg GT BID [facility] Stop: 11/26/17 16:59 Last Admin: 09/28/17 10:23 Dose: 1 mg Carbidopa/Levodopa (Sinemet 25mg-100 Mg) 1 tab GT DAILY [facility] Stop: 11/27/17 08:59 Last Admin: 09/28/17 09:34 Dose: 1 tab [place] Oil/[place] Balsam/Trypsin (Venelex) 1 appl TP DAILY [facility] Stop: 11/27/17 08:59 Clonazepam (Klonopin) 0.5 mg GT BID [facility]; Protocol Stop: 11/26/17 16:59 Last Admin: 09/28/17 10:23 Dose: 0.5 mg Docusate Sodium (Colace) 250 mg GT BID [facility] Stop: 11/26/17 16:59 Last Admin: 09/28/17 10:22 Dose: 250 mg Ferrous Sulfate (Iron) 330 mg GT DAILY [facility] Stop: 11/27/17 08:59 Last Admin: 09/28/17 09:33 Dose: 330 mg Cefepime HCl 1 gm/ Dextrose 50 mls @ 100 mls/hr IV Q12H [facility] Stop: 11/26/17 12:29 Last Admin: 09/28/17 14:22 Dose: 100 mls/hr Dextrose/Sodium Chloride (D5-0.45ns) 1,000 mls @ 80 mls/hr IV .[id number] [facility] Stop: 11/26/17 12:29 Last Admin: 09/28/17 10:30 Dose: 80 mls/hr Vancomycin HCl 1.25 gm/ Sodium (Chloride) 250 mls @ 165 mls/hr IV Q24H [facility] Stop: 11/27/17 08:59 Last Admin: 09/28/17 09:35 Dose: 165 mls/hr Norepinephrine Bitartrate 4 mg (/ Dextrose) 254 mls @ 30.48 mls/hr IV TITR PRN ; Protocol PRN Reason: BP MAINTENANCE (PER PROTOCOL) Stop: 11/26/17 21:35 Last Titration: 09/28/17 04:51 Dose: 0 mcg/min, 0 mls/hr Insulin Aspart (Novolog) 0 units SUBQ ACHS [facility]; Protocol Stop: 11/26/17 16:29 Last Admin: 09/28/17 13:06 Dose: Not Given Insulin Human Isoph/Insulin Regular (Novolin 70/30) 22 units SUBQ HS [facility]; Protocol Stop: 11/26/17 20:59 Last Admin: 09/27/17 22:13 Dose: Not Given Insulin Human Isoph/Insulin Regular (Novolin 70/30) 45 units SUBQ DAILY [facility]; Protocol Stop: 11/27/17 08:59 Last Admin: 09/28/17 09:00 Dose: Not Given Lactobacillus Rhamnosus (Culturelle 15b) 1 each GT DAILY [facility] Stop: 11/26/17 16:59 Last Admin: 09/28/17 09:34 Dose: 1 each Lactulose (Cephulac) 20 gm GT BID PRN PRN Reason: BOWEL MANAGEMENT Stop: 11/26/17 12:26 Levetiracetam (Keppra) 1,000 mg GT Q12HR [facility] Stop: 11/26/17 20:59 Last Admin: 09/28/17 09:32 Dose: 1,000 mg Levothyroxine Sodium (Synthroid) 0.1 mg GT QDAC [facility] Stop: 11/27/17 07:29 Last Admin: 09/28/17 06:36 Dose: 0.1 mg Lisinopril (Zestril) 20 mg GT DAILY [facility] Stop: 11/27/17 08:59 Last Admin: 09/28/17 09:36 Dose: Not Given Metoclopramide HCl (Reglan) 10 mg GT Q6HR [facility] Stop: 11/26/17 17:59 Last Admin: 09/28/17 13:10 Dose: 10 mg Miscellaneous (Vancomycin Iv Per Pharmacy) 1 ea MC PRN [facility] Stop: 11/26/17 12:29 Morphine Sulfate (Morphine) 2 mg IVP Q4H PRN PRN Reason: Pain (Severe) Stop: 11/26/17 12:28 Ondansetron HCl (Zofran) 4 mg IV Q8H PRN PRN Reason: Nausea / Vomiting Stop: 11/26/17 12:28 Pantoprazole Sodium (Protonix) 40 mg IVP DAILY [facility] Stop: 11/27/17 09:44 Last Admin: 09/28/17 13:22 Dose: 40 mg Petrolatum (Vaseline Oint) 113 appl TP DAILY [facility] Stop: 11/27/17 08:59 Last Admin: 09/28/17 13:21 Dose: 113 appl Simvastatin (Zocor) 20 mg PO HS [facility]; Protocol Stop: 11/26/17 20:59 Last Admin: 09/27/17 22:15 Dose: 20 mg Sucralfate (Carafate) 1 gm GT QID [facility] Stop: 11/26/17 12:59 Last Admin: 09/28/17 14:49 Dose: Not Given Tramadol HCl (Ultram) 50 mg GT Q6H PRN PRN Reason: Pain (Moderate) Stop: 11/26/17 12:26 Zinc Sulfate (Zinc Sulfate) 220 mg GT DAILY [facility] Stop: 11/27/17 08:59 Last Admin: 09/28/17 09:34 Dose: 220 mg General: weak, alert HEENT: NC/AT, PERRLA Neck: Supple, + trach Cardiovascular: RRR Abdomen: soft, non-tender, +GT - Procedures Procedures: Procedures Procedure Code Date AIRWAYS SURGICAL PROCEDURE 84646 03/03/16 BLOOD TRANSFUSION SERVICE 18368 09/27/17 CHANGE FEEDING DEVICE IN UP INTEST TRACT, FILLER SIFTER HELPER APPROACH [id number] 12/10/16 CHANGE GASTROSTOMY TUBE 81292 06/06/13 CONTINUOUS INVASIVE MECHANICAL VENTILATION <96 CONSEC HRS 96.71 02/02/13 CONTINUOUS INVASIVE MECHANICAL VENTILATION =/>96 CONSEC HRS 96.72 06/06/13 [place] [address] 03/03/16 IMMUNIZATION ADMIN 45629 03/03/16 INFLUENZA VACCINATION 99.52 02/02/13 INSERT NON-TUNNEL CV CATH 24736 03/03/16 INSERT PICC CATH 61782 02/02/13 INSERTION OF INFUSION DEV INTO SUP VENA CAVA, PERC APPROACH [id number] 03/03/16 INTRODUCTION OF SERUM/TOX/VACCINE INTO MUSCLE, PERC APPROACH [id number] 03/03/16 OTHER GASTROSTOMY 43.19 06/03/10 REPLACE GASTROSTOMY TUBE 97.02 06/06/13 RESPIRATORY VENTILATION, 24-96 CONSECUTIVE HOURS [id number] 09/27/17 RESPIRATORY VENTILATION, GREATER THAN 96 CONSECUTIVE HOURS [id number] 12/10/16 TRANSFUSE NONAUT RED BLOOD CELLS IN PERIPH VEIN, PERC 70392X1 09/27/17 VACCINATION NEC 99.55 02/02/13 VENOUS CATHETERIZATION NEC 38.93 02/02/13 VENT MGMT INPAT INIT DAY 73630 03/03/16 VENT MGMT INPAT SUBQ DAY 47805 03/03/16 Internal Medicine Assmt/Plan - Assessment Assessment: SEPSIS SECONDARY PNA ACUTE UTI ANEMIA POSSIBLE GI BLEED VDRF CHRONIC HYDROCEPHALUS DEMENTIA DECUBITUS ULCER STAGE 3 DM OBESITY PARKINSON'S LEUKOCYTOSIS ACUTE RENAL INSUFFICIENCY - Plan Plan: CONTINUE LEVOPHED AND TITRATE PER PROTOCOL CONTINUE VENT SUPPORT MONITOR H/H CBC/BMP IN AM CONTINUE CURRENT PLAN OF CARE Nutritional Asmnt/Malnutr-PDOC - Dietary Evaluation Malnutrition Findings (Please click <Entered> for more info): Nutritional Asmnt/Malnutrition Start: 09/28/17 11: 43 Text: Status: Complete Freq: Protocol: Document 09/28/17 11:44 JULIUS (Rec: 09/28/17 11:56 HEN [email or web address]) Nutritional Asmnt/Malnutrition Patient General Information Nutritional Screening High Risk Consult Diagnosis severe anemia, possible GI bleed, sepsis Pertinent Medical Hx/Surgical Hx DM, parkinson, vent dependent, 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 Pt seen on vent via trach at time of visit. Pt has gtube noted. Per RN Bushra, no nutrition plan at this time. pt is on NPO. Current Diet Order/ Nutrition Support NPO Pertinent Medications vitC, d5-0.45, colace, iron, novolog, novolin, culturelle, cephulac, synthroid, protonix, vancomycin, zinc Pertinent Labs 09/27 Na 135, Cl 96, BUN 53, Glucose 157, POC 76-185 Nutritional Hx/Data Height 5 ft 4 in Height (Calculated Centimeters) 162.6 Current Weight (lbs) 165 lb Weight (Calculated Kilograms) 74.8 Weight (Calculated Grams) 24572.7 [place] Body Weight 120 Body Mass Index (BMI) 28.3 Weight Status Overweight GI Symptoms GI Symptoms None Last BM 09/27 Difficult in: None Usual diet at home Diabetisource AC 50ml/hr x 20hr daily at care facility per chart Skin Integrity/Comment: pressure ulcer to sacrum Estimated Nutritional Goals BEE in Kcals: Using Current wt Calories/Kcals/Kg 27-32 Kcals Calculated 6975-9305 Protein: Using Current wt Protein g/k.2-1.4 Protein Calculated 72-84 Fluid: ml 1620-1920ml (1m/kcal) Nutritional Problem 2. Problem Problem increased nutrition needs ( calorie and protein) Etiology impaired skin integrity Signs/Symptoms: state 3 pressure ulcer 1. Problem Problem altered nutrition related labs Etiology hx of DM Signs/Symptoms: Glucose 157, POC 76-185 Malnutrition Alert Is there a minimum of two criteria No selected? Query Text:Check all the applicable criteria. A minimum of two criteria are recommended for diagnosis of either severe or non-severe malnutrition. Malnutrition Related to Morbid Obesity Malnutrition related to morbid obesity No Intervention/Recommendation Comments 1. Monitor NPO status. 2. If TF needed, recommend Diabetisource AC at 55ml/hr continuous and Arginaid 1pkg daily via Gtube for wound healing. This will provide 1584kcal, 79g protein and 1079ml free water, meeting 100 % of estemated nutritional needs 3. Monitor wt, labs and skin integrity 4. F/U as high risk in 2 days, 6/2 Expected Outcomes/Goals Expected Outcomes/Goals 1. Pt to meet at least 75% of nutritional needs 2. Wt stability, skin integrity to improve, labs to approach WNL.
[2017-09-28] MEDS: Venelex 60gm Tube TP SCH (16:07)
[2017-09-29] MEDS: Albuterol/Ipratropium Neb 3 ML AERS HHN SCH ×4 (00:03→18:49)
--- NOTE | 2017-09-29 03:06 | Consultation ---
DATE OF CONSULTATION: 09/28/2017 INPATIENT GASTROINTESTINAL CONSULTATION CONSULTING PHYSICIAN: Dr. Garza. REASON FOR CONSULTATION: Anemia. HISTORY OF PRESENT ILLNESS: The patient is an 81-year-old female with a history of chronic hydrocephalus with a FIELD CANE SCALE CLERK shunt in place, dementia, dysphagia with a permanent G-tube, has a tracheostomy due to chronic respiratory failure, Parkinson's disease, who was admitted to the hospital with a hemoglobin of 7.3. The patient was at her nursing facility and had routine lab draws at that time that noted that she had a hemoglobin of 6.6 as well as an elevated lactic acid. For this reason, she was transferred to the Emergency Room. A chest x-ray did reveal possible infiltrates. The patient has been admitted to the ICU and is on broad-spectrum antibiotics. Her hemoglobin here was 7.2 and she did receive a blood transfusion last night, but no repeat labs today. Of note, the patient is having green-colored stool. Her G-tube was flushed and resulted in normal G-tube feeding. There is no coffee grounds per the G-tube and no melena, no hematochezia, no hematemesis. PAST MEDICAL HISTORY: Dementia, hydrocephalus with FIELD CANE SCALE CLERK shunt, tracheostomy, G-tube, type 2 diabetes, Parkinson's disease. PAST SURGICAL HISTORY: Placement of FIELD CANE SCALE CLERK shunt, G-tube, and tracheostomy. FAMILY HISTORY: Noncontributory. SOCIAL HISTORY: The patient is a permanent resident in the nursing facility require 24-hour care. ALLERGIES: No known drug allergies. REVIEW OF SYSTEMS: Not possible given the patient is not able to participate in the interview. CURRENT MEDICATIONS: Include Tylenol, [place], acetylcysteine, albuterol, allopurinol, Norvasc, vitamin C, carbidopa/levodopa, cefepime, clonazepam, Pepcid, iron, insulin, lactobacillus, Keppra, Synthroid, lisinopril, Reglan as needed, vancomycin, morphine as needed, Zocor. PHYSICAL EXAMINATION: VITAL SIGNS: Blood pressure is 110/50, pulse 93 beats per minute, temperature 98.6, respirations are 16 on trach ventilator support, oxygenation 100%. GENERAL: The patient is lying at 30 degrees in bed, alert and oriented x 0. HEAD, EARS, EYES, NOSE, AND THROAT: Normocephalic, atraumatic appearing head. Pupils equal and reactive to light. Extraocular muscles are intact. Moist mucous membranes. NECK: There is a midline tracheostomy in place. CHEST: Mechanical breath sounds bilaterally. CARDIOVASCULAR: S1, S2 present, tachycardic. ABDOMEN: There seems to be a midline possible ventral hernia. There is a G-tube in the left upper quadrant that is clean, dry and intact. No guarding, no rebound, no abdominal distention. EXTREMITIES: 1+ pitting edema is noted bilaterally. Pulses are not present. SKIN: There is no obvious jaundice. LABORATORY DATA: White blood cell count 11.1, hemoglobin 7.3, and platelet count is 367. INR is 1.1. Sodium 135, BUN 53, total bilirubin 0.2, AST 28, ALT 20. Troponin negative. IMAGING: No abdominal imaging has been performed. IMPRESSION: This is an 81-year-old female with history of Parkinson's dementia, hydrocephalus with FIELD CANE SCALE CLERK shunt, dysphagia with a G-tube, respiratory failure with tracheostomy, who was admitted to the hospital with possible pneumonia and low hemoglobin level. 1. Anemia. 2. Possible pneumonia. 3. Parkinson's dementia. 4. Dysphagia with a G-tube. 5. Chronic respiratory failure with tracheostomy. DISCUSSION: At this point, there is no obvious GI bleeding. The patient is having green stool and the G-tube was flushed and did not result in any blood or coffee grounds. I do not suspect GI bleed as the cause of her low hemoglobin at this point. Given her chronic medical issues, it will be difficult to put this patient through a full bowel prep, EGD and colonoscopy, and without overt GI bleeding, it is likely more risk than benefit in this case. We will try to find out when the last EGD and colonoscopy was done for this patient by obtaining the records from her nursing facility. In the meantime, we will continue to watch for any signs of overt gastrointestinal bleeding. We will send stool for fecal occult blood. If she does have any bleeding in terms of melena, hematochezia or hematemesis, we can revisit the idea of doing endoscopy now. For now, we will continue the patient on iron. Trend the hemoglobin levels. RECOMMENDATIONS: 1. No EGD and colonoscopy at the moment as stated above. 2. Try to obtain the record of her last endoscopic examination. 3. Continue iron therapy. 4. Fecal occult blood testing. 5. Daily Protonix. 6. Can continue feeding through the G-tube as I do not plan on doing an endoscopic examination at this point. 7. Management of the patient's pneumonia as per primary. Thank you for allowing me to participate in her care. Please call if you have any further questions. JOB# [id number]
[2017-09-29 05:22] LABS: HEMATOCRIT 23.7 % (41.0-60); MEAN CELL VOLUME 79.2 fl (81-100); MEAN CORPUSCULAR HEMOGLOBIN 26.1 pg (27.0-31.0); MEAN PLATELET VOLUME 7.4 fl; PLATELET COUNT 292 Th/cmm (150-400); RED BLOOD COUNT 2.99 Mil/cmm (3.80-5.20); RED CELL DISTRIBUTION WIDTH 16.7 % (11.5-20.0); WHITE BLOOD COUNT 11.2 Th/cmm (4.8-10.8)
[2017-09-29 05:30] LABS: HEMOGLOBIN 7.8 gm/dL (12-16); MANUAL DIFF REQUIRED? YES
[2017-09-29 05:31] LABS: ALB/GLOB RATIO 0.8 (1.0-1.8); ALBUMIN 3.4 gm/dL (3.7-5.3); ALKALINE PHOSPHATASE 135 U/L (34-104); ANION GAP 11.9 (7.0-16.0); BILIRUBIN,TOTAL 0.4 mg/dL (0.3-1.0); BUN - UREA NITROGEN 20 mg/dL (7-25); CALCIUM SERUM 8.6 mg/dL (8.6-10.3); CARBON DIOXIDE 22.5 mEq/L (21.0-31.0); CHLORIDE 105 mEq/L (98-107); CREATININE - SERUM 0.8 mg/dL (0.6-1.2); GLUCOSE 201 mg/dL (70-105); POTASSIUM SERUM 3.4 mEq/L (3.5-5.1); SGOT 22 U/L (13-39); SGPT/ALT 27 U/L (7-52); SODIUM SERUM 136 mEq/L (136-145); TOTAL PROTEIN,SERUM 7.5 gm/dL (6.0-8.3)
[2017-09-29 06:04] LABS: LYMPHOCYTE 8 % (20-50); NEUTROPHILS 89 % (40-80); TOTAL CELLS COUNTED 100
[2017-09-29 06:05] LABS: MONOCYTE 3 % (2-10)
[2017-09-29] MEDS: INSULIN ASPART, RECOMBINANT 100 UNITS/ML SUBQ SCH ×4 (06:30→20:36)
[2017-09-29] MEDS: Multivitamin w/ Minerals Tab GT SCH (08:59)
[2017-09-29] MEDS: INSULIN 70/30 100 UNITS/ML SUBQ SCH ×2 (09:00→20:35)
[2017-09-29] MEDS: Lactobacillus Rhamnosus GG 15 Billion CFU CAP.SPRINK GT SCH (09:00)
[2017-09-29] MEDS: Petrolatum (White) Oint 0.6 Oz Tube TP SCH (09:00)
[2017-09-29] MEDS: Levetiracetam 500 mg/5mL 5mL UDSyr *for ORAL USE ONLY GT SCH ×2 (09:00→20:15)
[2017-09-29] MEDS: Benztropine 1 MG TAB GT SCH ×2 (09:00→17:25)
[2017-09-29] MEDS: Ferrous Sulfate 300 MG/5 ML UDC GT SCH (09:01)
[2017-09-29] MEDS ORDERED: Potassium Chloride Elixir 20 mEq /15 mL UDC GT ONE (10:08)
[2017-09-29] MEDS: Docusate Sodium 100 mg/10 mL UD GT SCH ×2 (10:25→17:25)
[2017-09-29] MEDS: Venelex 60gm Tube TP SCH (11:51)
[2017-09-29] MEDS: Hydrocodone/APAP 5mg/325mg Tab GT SCH (11:52)
[2017-09-29] MEDS: Levothyroxine 0.1 Mg Tab GT SCH (13:49)
[2017-09-29] MEDS: D5-0.45NS 1,000 ML IV SCH (13:51)
--- NOTE | 2017-09-29 14:13 | Internal Medicine Prog Note ---
Internal Medicine Subjective - Subjective Service Date: 09/29/17 (off of levophed) Patient is:: awake Per staff patient has:: tolerating meds Internal Medicine Objective - Results Result Diagrams: 09/29/17 04:35 09/29/17 04:35 Recent Labs: Laboratory Last Values WBC 11.2 Th/cmm (4.8-10.8) H 09/29/17 04:35 RBC 2.99 Mil/cmm (3.80-5.20) L 09/29/17 04:35 Hgb 7.8 gm/dL (12-16) L* 09/29/17 04:35 Hct 23.7 % (41.0-60) L 09/29/17 04:35 MCV 79.2 fl (81-100) L 09/29/17 04:35 MCH 26.1 pg (27.0-31.0) L 09/29/17 04:35 MCHC Differential 33.0 pg (28.0-36.0) 09/29/17 04:35 RDW 16.7 % (11.5-20.0) 09/29/17 04:35 Plt Count 292 Th/cmm (150-400) 09/29/17 04:35 MPV 7.4 fl 09/29/17 04:35 Neutrophils % 79.5 % (40.0-80.0) 09/27/17 11:09 Lymphocytes % 12.0 % (20.0-50.0) L 09/27/17 11:09 Monocytes % 4.7 % (2.0-10.0) 09/27/17 11:09 Eosinophils % 3.5 % (0.0-5.0) 09/27/17 11:09 Basophils % 0.3 % (0.0-2.0) 09/27/17 11:09 Neutrophils (Manual) 89 % (40-80) H 09/29/17 04:35 Lymphocytes 8 % (20-50) L 09/29/17 04:35 Monocytes 3 % (2-10) 09/29/17 04:35 Microcytosis 1+ 09/29/17 04:35 PT 11.5 SECONDS (9.5-11.5) 09/27/17 11:09 INR 1.10 (0.5-1.4) 09/27/17 11:09 PTT (Actin FS) 24.9 SECONDS (26.0-38.0) L 09/27/17 11:09 Sodium 136 mEq/L (136-145) 09/29/17 04:35 Potassium 3.4 mEq/L (3.5-5.1) L 09/29/17 04:35 Chloride 105 mEq/L (98-107) 09/29/17 04:35 Carbon Dioxide 22.5 mEq/L (21.0-31.0) 09/29/17 04:35 Anion Gap 11.9 (7.0-16.0) 09/29/17 04:35 BUN 20 mg/dL (7-25) 09/29/17 04:35 Creatinine 0.8 mg/dL (0.6-1.2) 09/29/17 04:35 Est GFR ( Amer) TNP 09/29/17 04:35 Est GFR (Non-Af Amer) TNP 09/29/17 04:35 BUN/Creatinine Ratio 25.0 09/29/17 04:35 Glucose 201 mg/dL (70-105) H 09/29/17 04:35 POC Glucose 165 MG/DL (70 - 105) H 09/29/17 12:07 Whole Bld Lactic Acid 2.21 mmol/L (0.60-1.99) H* 09/27/17 13:10 Calcium 8.6 mg/dL (8.6-10.3) 09/29/17 04:35 Total Bilirubin 0.4 mg/dL (0.3-1.0) 09/29/17 04:35 AST 22 U/L (13-39) 09/29/17 04:35 ALT 27 U/L (7-52) 09/29/17 04:35 Alkaline Phosphatase 135 U/L (34-104) H 09/29/17 04:35 Creatine Kinase 308 U/L (30-223) H 09/27/17 11:09 CK-MB (CK-2) 10.6 ng/mL (0.6-6.3) H 09/27/17 11:09 Troponin I 0.01 ng/mL (0.01-0.05) 09/27/17 11:09 Total Protein 7.5 gm/dL (6.0-8.3) 09/29/17 04:35 Albumin 3.4 gm/dL (3.7-5.3) L 09/29/17 04:35 Globulin 4.1 gm/dL 09/29/17 04:35 Albumin/Globulin Ratio 0.8 (1.0-1.8) L 09/29/17 04:35 Urine Source MIDSTREAM 09/27/17 11:50 Urine Color YELLOW 09/27/17 11:50 Urine Clarity HAZY (CLEAR) 09/27/17 11:50 Urine pH 6.5 (4.6 - 8.0) 09/27/17 11:50 Ur Specific [place] 1.010 (1.005-1.030) 09/27/17 11:50 Urine Protein 30 mg/dL (NEGATIVE) H 09/27/17 11:50 Urine Glucose (UA) NEGATIVE mg/dL (NEGATIVE) 09/27/17 11:50 Urine Ketones NEGATIVE mg/dL (NEGATIVE) 09/27/17 11:50 Urine Blood LARGE (NEGATIVE) H 09/27/17 11:50 Urine Nitrate NEGATIVE (NEGATIVE) 09/27/17 11:50 Urine Bilirubin NEGATIVE (NEGATIVE) 09/27/17 11:50 Urine Urobilinogen 0.2 E.U./dL (0.2 - 1.0) 09/27/17 11:50 Ur Leukocyte Esterase MODERATE (NEGATIVE) H 09/27/17 11:50 Urine RBC 25-50 /hpf (0-5) H 09/27/17 11:50 Urine WBC 6-10 /hpf (0-5) H 09/27/17 11:50 Ur Epithelial Cells MODERATE /lpf (FEW) 09/27/17 11:50 Urine Bacteria 3+ /hpf (NONE SEEN) H 09/27/17 11:50 Stool Occult Blood POSITIVE (NEGATIVE) H 09/28/17 15:15 Vancomycin Trough 13.7 ug/mL (5-10) H 09/29/17 08:05 Blood Type A POSITIVE 09/27/17 13:10 Antibody Screen NEGATIVE 09/27/17 13:10 Crossmatch See Detail 09/27/17 13:10 - Physical Exam Vitals and I&O: Vital Signs Temp 98.1 F 09/29/17 12:00 Pulse 73 09/29/17 12:00 Resp 16 09/29/17 12:00 BP 114/48 09/29/17 12:00 Pulse Ox 100 09/29/17 12:00 Intake & Output 09/28/17 09/29/17 09/29/17 18:59 06:59 18:59 Intake Total 550 1802.630 438.667 Output Total 875 1550 Balance -325 252.630 438.667 Weight (lbs) 178 lb 6.4 oz 177 lb 14.4 oz Intake: Intake, IV Amount 300 1802.630 438.667 Cefepime 1 gm In Dextrose 50 50 5% 50 ml @ 100 mls/hr IV Q12H [facility] Rx#:[id number] D5-0.45NS 1,000 ml @ 80 1560.000 438.667 mls/hr IV .[id number] [facility] Rx #:[id number] Norepinephrine 4 mg In 0 192.630 Dextrose 5% 250 ml @ 8 MCG/MIN 30.48 mls/hr IV TITR PRN Rx#:[id number] Vancomycin HCl 1.25 gm In 250 Sodium Chloride 0.9% 250 ml @ 165 mls/hr IV Q24H [facility] Rx#:[id number] Tube Feeding 250 Output: Urine 875 1550 Other: # Voids 0 Weight Source Bedscale Bedscale Active Medications: Current Medications Acetaminophen (Tylenol 650mg/20.3ml Suspension) 650 mg GT Q6HR PRN PRN Reason: Mild Pain or Fever >101 Stop: 11/26/17 13:59 Last Admin: 09/28/17 16:43 Dose: 650 mg Acetaminophen/Hydrocodone Bitart ([place] 5mg/325mg) 1 tab GT DAILY [facility] Stop: 11/27/17 08:59 Last Admin: 09/29/17 11:52 Dose: Not Given Acetylcysteine (Mucomyst 20%) 2 ml HHN Q6HRT [facility] Stop: 11/26/17 18:59 Last Admin: 09/29/17 07:06 Dose: Not Given Albuterol/Ipratropium (Duoneb Neb) 3 ml HHN Q2HRT PRN PRN Reason: Wheezing Stop: 11/26/17 12:30 Albuterol/Ipratropium (Duoneb Neb) 3 ml HHN Q6HRT [facility] Stop: 11/26/17 12:59 Last Admin: 09/29/17 07:06 Dose: 3 ml Allopurinol (Zyloprim) 200 mg GT DAILY [facility] Stop: 11/27/17 08:59 Last Admin: 09/29/17 08:59 Dose: 200 mg Amlodipine Besylate (Norvasc) 5 mg GT DAILY [facility] Stop: 11/27/17 08:59 Last Admin: 09/29/17 10:23 Dose: 5 mg Ascorbic Acid (Vitamin C) 500 mg GT DAILY [facility] Stop: 11/27/17 08:59 Last Admin: 09/29/17 09:01 Dose: 500 mg Benztropine Mesylate (Cogentin) 1 mg GT BID [facility] Stop: 11/26/17 16:59 Last Admin: 09/29/17 09:00 Dose: 1 mg Carbidopa/Levodopa (Sinemet 25mg-100 Mg) 1 tab GT DAILY [facility] Stop: 11/27/17 08:59 Last Admin: 09/29/17 09:01 Dose: 1 tab [place] Oil/[place] Balsam/Trypsin (Venelex) 1 appl TP DAILY [facility] Stop: 11/27/17 08:59 Last Admin: 09/29/17 11:51 Dose: Not Given Clonazepam (Klonopin) 0.5 mg GT BID [facility]; Protocol Stop: 11/26/17 16:59 Last Admin: 09/29/17 11:51 Dose: Not Given Docusate Sodium (Colace) 250 mg GT BID [facility] Stop: 11/26/17 16:59 Last Admin: 09/29/17 10:25 Dose: 250 mg Ferrous Sulfate (Iron) 330 mg GT DAILY [facility] Stop: 11/27/17 08:59 Last Admin: 09/29/17 09:01 Dose: 330 mg Cefepime HCl 1 gm/ Dextrose 50 mls @ 100 mls/hr IV Q12H [facility] Stop: 11/26/17 12:29 Last Admin: 09/29/17 13:49 Dose: 100 mls/hr Dextrose/Sodium Chloride (D5-0.45ns) 1,000 mls @ 80 mls/hr IV .[id number] [facility] Stop: 11/26/17 12:29 Last Admin: 09/29/17 13:51 Dose: 80 mls/hr Vancomycin HCl 1.25 gm/ Sodium (Chloride) 250 mls @ 165 mls/hr IV Q24H [facility] Stop: 11/27/17 08:59 Last Admin: 09/29/17 09:38 Dose: 165 mls/hr Norepinephrine Bitartrate 4 mg (/ Dextrose) 254 mls @ 30.48 mls/hr IV TITR PRN ; Protocol PRN Reason: BP MAINTENANCE (PER PROTOCOL) Stop: 11/26/17 21:35 Last Titration: 09/29/17 06:30 Dose: 0 mcg/min, 0 mls/hr Insulin Aspart (Novolog) 0 units SUBQ ACHS [facility]; Protocol Stop: 11/26/17 16:29 Last Admin: 09/29/17 13:25 Dose: Not Given Insulin Human Isoph/Insulin Regular (Novolin 70/30) 22 units SUBQ HS [facility]; Protocol Stop: 11/26/17 20:59 Last Admin: 09/28/17 20:52 Dose: Not Given Insulin Human Isoph/Insulin Regular (Novolin 70/30) 45 units SUBQ DAILY [facility]; Protocol Stop: 11/27/17 08:59 Last Admin: 09/28/17 09:00 Dose: Not Given Lactobacillus Rhamnosus (Culturelle 15b) 1 each GT DAILY [facility] Stop: 11/26/17 16:59 Last Admin: 09/29/17 09:00 Dose: 1 each Lactulose (Cephulac) 20 gm GT BID PRN PRN Reason: BOWEL MANAGEMENT Stop: 11/26/17 12:26 Levetiracetam (Keppra) 1,000 mg GT Q12HR [facility] Stop: 11/26/17 20:59 Last Admin: 09/29/17 09:00 Dose: 1,000 mg Levothyroxine Sodium (Synthroid) 0.1 mg GT QDAC [facility] Stop: 11/27/17 07:29 Last Admin: 09/29/17 13:49 Dose: 0.1 mg Lisinopril (Zestril) 20 mg GT DAILY [facility] Stop: 11/27/17 08:59 Last Admin: 09/28/17 09:36 Dose: Not Given Metoclopramide HCl (Reglan) 10 mg GT Q6HR [facility] Stop: 11/26/17 17:59 Last Admin: 09/29/17 13:49 Dose: 10 mg Miscellaneous (Vancomycin Iv Per Pharmacy) 1 ea MC PRN [facility] Stop: 11/26/17 12:29 Morphine Sulfate (Morphine) 2 mg IVP Q4H PRN PRN Reason: Pain (Severe) Stop: 11/26/17 12:28 Ondansetron HCl (Zofran) 4 mg IV Q8H PRN PRN Reason: Nausea / Vomiting Stop: 11/26/17 12:28 Pantoprazole Sodium (Protonix) 40 mg IVP DAILY [facility] Stop: 11/27/17 09:44 Last Admin: 09/29/17 09:02 Dose: 40 mg Petrolatum (Vaseline Oint) 113 appl TP DAILY [facility] Stop: 11/27/17 08:59 Last Admin: 09/28/17 13:21 Dose: 113 appl Simvastatin (Zocor) 20 mg PO HS [facility]; Protocol Stop: 11/26/17 20:59 Last Admin: 09/28/17 20:21 Dose: 20 mg Sucralfate (Carafate) 1 gm GT QID [facility] Stop: 11/26/17 12:59 Last Admin: 09/29/17 13:48 Dose: 1 gm Tramadol HCl (Ultram) 50 mg GT Q6H PRN PRN Reason: Pain (Moderate) Stop: 11/26/17 12:26 Zinc Sulfate (Zinc Sulfate) 220 mg GT DAILY [facility] Stop: 11/27/17 08:59 Last Admin: 09/29/17 08:59 Dose: 220 mg General: weak, alert HEENT: NC/AT, PERRLA Neck: Supple, + trach Cardiovascular: RRR Abdomen: soft, non-tender, +GT - Procedures Procedures: Procedures Procedure Code Date AIRWAYS SURGICAL PROCEDURE 43460 03/03/16 BLOOD TRANSFUSION SERVICE 64310 09/27/17 CHANGE FEEDING DEVICE IN UP INTEST TRACT, UTILITY FORESTER APPROACH [id number] 12/10/16 CHANGE GASTROSTOMY TUBE 23631 06/06/13 CONTINUOUS INVASIVE MECHANICAL VENTILATION <96 CONSEC HRS 96.71 02/02/13 CONTINUOUS INVASIVE MECHANICAL VENTILATION =/>96 CONSEC HRS 96.72 06/06/13 [place] [id number] 03/03/16 IMMUNIZATION ADMIN 77962 03/03/16 INFLUENZA VACCINATION 99.52 02/02/13 INSERT NON-TUNNEL CV CATH 63807 03/03/16 INSERT PICC CATH 69716 02/02/13 INSERTION OF INFUSION DEV INTO SUP VENA CAVA, PERC APPROACH [id number] 03/03/16 INTRODUCTION OF SERUM/TOX/VACCINE INTO MUSCLE, PERC APPROACH [id number] 03/03/16 OTHER GASTROSTOMY 43.19 06/03/10 REPLACE GASTROSTOMY TUBE 97.02 06/06/13 RESPIRATORY VENTILATION, 24-96 CONSECUTIVE HOURS [id number] 09/27/17 RESPIRATORY VENTILATION, GREATER THAN 96 CONSECUTIVE HOURS [id number] 12/10/16 TRANSFUSE NONAUT RED BLOOD CELLS IN PERIPH VEIN, PERC [id number] 09/27/17 VACCINATION NEC 99.55 02/02/13 VENOUS CATHETERIZATION NEC 38.93 02/02/13 VENT MGMT INPAT INIT DAY 03/03/16 VENT MGMT INPAT SUBQ DAY 03/03/16 Internal Medicine Assmt/Plan - Assessment Assessment: SEPSIS SECONDARY PNA ACUTE UTI ANEMIA POSSIBLE GI BLEED VDRF CHRONIC HYDROCEPHALUS DEMENTIA DECUBITUS ULCER STAGE 3 DM OBESITY PARKINSON'S LEUKOCYTOSIS ACUTE RENAL INSUFFICIENCY - Plan Plan: replace potassium CONTINUE VENT SUPPORT MONITOR H/H CBC/BMP IN AM CONTINUE CURRENT PLAN OF CARE Nutritional Asmnt/Malnutr-PDOC - Dietary Evaluation Malnutrition Findings (Please click <Entered> for more info): Nutritional Asmnt/Malnutrition Start: 09/28/17 11: 43 Text: Status: Complete Freq: Protocol: Document 09/28/17 11:44 CARLOS (Rec: 09/28/17 11:56 CARLOS [email or web address]) Nutritional Asmnt/Malnutrition Patient General Information Nutritional Screening High Risk Consult Diagnosis severe anemia, possible GI bleed, sepsis Pertinent Medical Hx/Surgical Hx DM, parkinson, vent dependent, FIRE MARSHAL shunt, decubitis ulcer, Gtube Subjective Information Consult received for diabetic stage 3 pressure ulcer POA. Pt seen on vent via trach at time of visit. Pt has gtube noted. Per NOAH Tomlinson, no nutrition plan at this time. pt is on NPO. Current Diet Order/ Nutrition Support NPO Pertinent Medications vitC, d5-0.45, colace, iron, novolog, novolin, culturelle, cephulac, synthroid, protonix, vancomycin, zinc Pertinent Labs 09/27 Na 135, Cl 96, BUN 53, Glucose 157, POC 76-185 Nutritional Hx/Data Height 5 ft 4 in Height (Calculated Centimeters) 162.6 Current Weight (lbs) 165 lb Weight (Calculated Kilograms) 74.8 Weight (Calculated Grams) 79878.7 [place] Body Weight 120 Body Mass Index (BMI) 28.3 Weight Status Overweight GI Symptoms GI Symptoms None Last BM 09/27 Difficult in: None Usual diet at home Diabetisource AC 50ml/hr x 20hr daily at care facility per chart Skin Integrity/Comment: pressure ulcer to sacrum Estimated Nutritional Goals BEE in Kcals: Using Current wt Calories/Kcals/Kg 27-32 Kcals Calculated 6822-9208 Protein: Using Current wt Protein g/k.2-1.4 Protein Calculated 72-84 Fluid: ml 1620-1920ml (1m/kcal) Nutritional Problem 2. Problem Problem increased nutrition needs ( calorie and protein) Etiology impaired skin integrity Signs/Symptoms: state 3 pressure ulcer 1. Problem Problem altered nutrition related labs Etiology hx of DM Signs/Symptoms: Glucose 157, POC 76-185 Malnutrition Alert Is there a minimum of two criteria No selected? Query Text:Check all the applicable criteria. A minimum of two criteria are recommended for diagnosis of either severe or non-severe malnutrition. Malnutrition Related to Morbid Obesity Malnutrition related to morbid obesity No Intervention/Recommendation Comments 1. Monitor NPO status. 2. If TF needed, recommend Diabetisource AC at 55ml/hr continuous and Arginaid 1pkg daily via Gtube for wound healing. This will provide 1584kcal, 79g protein and 1079ml free water, meeting 100 % of estemated nutritional needs 3. Monitor wt, labs and skin integrity 4. F/U as high risk in 2 days, 6/2 Expected Outcomes/Goals Expected Outcomes/Goals 1. Pt to meet at least 75% of nutritional needs 2. Wt stability, skin integrity to improve, labs to approach WNL.
[2017-09-30] MEDS: Albuterol/Ipratropium Neb 3 ML AERS HHN SCH ×4 (02:36→18:47)
[2017-09-30 05:49] LABS: % BASOPHILS 0.2 % (0.0-2.0); % EOSINOPHILS 3.4 % (0.0-5.0); % LYMPHOCYTES 8.7 % (20.0-50.0); % MONOCYTES 5.7 % (2.0-10.0); EOSINOPHILE ABSOLUTE 0.5 Th/cmm (0.1-0.4); LYMPHOCYTE ABSOLUTE 1.2 Th/cmm (1.5-3.0); MEAN CELL VOLUME 78.7 fl (81-100); MEAN CORPUSCULAR HEMOGLOBIN 26.3 pg (27.0-31.0); MEAN CORPUSCULAR HGB CONC 33.4 pg (28.0-36.0); MEAN PLATELET VOLUME 7.6 fl; MONOCYTE ABSOLUTE 0.8 Th/cmm (0.3-1.0); PLATELET COUNT 268 Th/cmm (150-400); RED BLOOD COUNT 2.92 Mil/cmm (3.80-5.20); RED CELL DISTRIBUTION WIDTH 16.4 % (11.5-20.0)
[2017-09-30 06:04] LABS: ANION GAP 11.5 (7.0-16.0); BUN - UREA NITROGEN 16 mg/dL (7-25); CALCIUM SERUM 8.4 mg/dL (8.6-10.3); CARBON DIOXIDE 20.9 mEq/L (21.0-31.0); CHLORIDE 107 mEq/L (98-107); CREATININE - SERUM 0.7 mg/dL (0.6-1.2); GLUCOSE 209 mg/dL (70-105); POTASSIUM SERUM 3.4 mEq/L (3.5-5.1); SODIUM SERUM 136 mEq/L (136-145)
[2017-09-30 06:08] LABS: WHITE BLOOD COUNT 13.5 Th/cmm (4.8-10.8)
[2017-09-30 06:09] LABS: HEMOGLOBIN 7.7 gm/dL (12-16)
[2017-09-30] MEDS: INSULIN ASPART, RECOMBINANT 100 UNITS/ML SUBQ SCH ×2 (06:29→17:21)
[2017-09-30] MEDS: Levothyroxine 0.1 Mg Tab GT SCH (06:31)
[2017-09-30] MEDS ORDERED: Potassium Chloride Elixir 20 mEq /15 mL UDC GT ONE (08:25)
[2017-09-30] MEDS: Petrolatum (White) Oint 0.6 Oz Tube TP SCH (08:55)
[2017-09-30] MEDS: Lactobacillus Rhamnosus GG 15 Billion CFU CAP.SPRINK GT SCH (08:56)
[2017-09-30] MEDS: Multivitamin w/ Minerals Tab GT SCH (08:56)
[2017-09-30] MEDS: Ferrous Sulfate 300 MG/5 ML UDC GT SCH (08:56)
[2017-09-30] MEDS: Docusate Sodium 100 mg/10 mL UD GT SCH ×2 (08:57→17:15)
[2017-09-30] MEDS: Levetiracetam 500 mg/5mL 5mL UDSyr *for ORAL USE ONLY GT SCH ×2 (08:57→21:41)
[2017-09-30] MEDS: Venelex 60gm Tube TP SCH (08:57)
[2017-09-30] MEDS: Hydrocodone/APAP 5mg/325mg Tab GT SCH (08:58)
[2017-09-30] MEDS: Benztropine 1 MG TAB GT SCH ×2 (08:58→17:15)
[2017-09-30] MEDS: INSULIN 70/30 100 UNITS/ML SUBQ SCH ×2 (09:05→21:44)
--- NOTE | 2017-09-30 10:16 | Diagnostic Imaging Report ---
Exam: Chest x-ray portable. HISTORY: Shortness of breath. Findings: Portable upright examination of the chest at 0744 hours reviewed compared to prior study of 09/27/2012 demonstrates left basilar infiltrate superimposed effusion. Right basilar atelectasis is noted. Bony thorax intact. Mediastinal structures midline the heart is not enlarged. IMPRESSION: Left basilar pneumonia and effusion Right basilar atelectasis
[2017-09-30] MEDS ORDERED: INSULIN ASPART, RECOMBINANT 100 UNITS/ML SUBQ SCH (12:00)
[2017-09-30] MEDS: D5-0.45NS 1,000 ML IV SCH (15:42)
--- NOTE | 2017-09-30 17:10 | Internal Medicine Prog Note ---
Internal Medicine Subjective - Subjective Service Date: 09/30/17 (ON 2CG/MIN LEVOPHED ) Patient seen and examined:: with staff Patient is:: awake Per staff patient has:: tolerating meds Internal Medicine Objective - Results Result Diagrams: 09/30/17 04:30 09/30/17 04:30 Recent Labs: Laboratory Last Values WBC 13.5 Th/cmm (4.8-10.8) H D 09/30/17 04:30 RBC 2.92 Mil/cmm (3.80-5.20) L 09/30/17 04:30 Hgb 7.7 gm/dL (12-16) L* 09/30/17 04:30 Hct 23.0 % (41.0-60) L 09/30/17 04:30 MCV 78.7 fl (81-100) L 09/30/17 04:30 MCH 26.3 pg (27.0-31.0) L 09/30/17 04:30 MCHC Differential 33.4 pg (28.0-36.0) 09/30/17 04:30 RDW 16.4 % (11.5-20.0) 09/30/17 04:30 Plt Count 268 Th/cmm (150-400) 09/30/17 04:30 MPV 7.6 fl 09/30/17 04:30 Neutrophils % 82.0 % (40.0-80.0) H 09/30/17 04:30 Lymphocytes % 8.7 % (20.0-50.0) L 09/30/17 04:30 Monocytes % 5.7 % (2.0-10.0) 09/30/17 04:30 Eosinophils % 3.4 % (0.0-5.0) 09/30/17 04:30 Basophils % 0.2 % (0.0-2.0) 09/30/17 04:30 Neutrophils (Manual) 89 % (40-80) H 09/29/17 04:35 Lymphocytes 8 % (20-50) L 09/29/17 04:35 Monocytes 3 % (2-10) 09/29/17 04:35 Microcytosis 1+ 09/29/17 04:35 PT 11.5 SECONDS (9.5-11.5) 09/27/17 11:09 INR 1.10 (0.5-1.4) 09/27/17 11:09 PTT (Actin FS) 24.9 SECONDS (26.0-38.0) L 09/27/17 11:09 Sodium 136 mEq/L (136-145) 09/30/17 04:30 Potassium 3.4 mEq/L (3.5-5.1) L 09/30/17 04:30 Chloride 107 mEq/L (98-107) 09/30/17 04:30 Carbon Dioxide 20.9 mEq/L (21.0-31.0) L 09/30/17 04:30 Anion Gap 11.5 (7.0-16.0) 09/30/17 04:30 BUN 16 mg/dL (7-25) 09/30/17 04:30 Creatinine 0.7 mg/dL (0.6-1.2) 09/30/17 04:30 Est GFR ( Amer) TNP 09/30/17 04:30 Est GFR (Non-Af Amer) TNP 09/30/17 04:30 BUN/Creatinine Ratio 22.9 09/30/17 04:30 Glucose 209 mg/dL (70-105) H 09/30/17 04:30 POC Glucose 158 MG/DL (70 - 105) H 09/30/17 12:08 Hemoglobin A1c % 5.0 % (4.0-6.0) 09/29/17 04:35 Whole Bld Lactic Acid 2.21 mmol/L (0.60-1.99) H* 09/27/17 13:10 Calcium 8.4 mg/dL (8.6-10.3) L 09/30/17 04:30 Total Bilirubin 0.4 mg/dL (0.3-1.0) 09/29/17 04:35 AST 22 U/L (13-39) 09/29/17 04:35 ALT 27 U/L (7-52) 09/29/17 04:35 Alkaline Phosphatase 135 U/L (34-104) H 09/29/17 04:35 Creatine Kinase 308 U/L (30-223) H 09/27/17 11:09 CK-MB (CK-2) 10.6 ng/mL (0.6-6.3) H 09/27/17 11:09 Troponin I 0.01 ng/mL (0.01-0.05) 09/27/17 11:09 Total Protein 7.5 gm/dL (6.0-8.3) 09/29/17 04:35 Albumin 3.4 gm/dL (3.7-5.3) L 09/29/17 04:35 Globulin 4.1 gm/dL 09/29/17 04:35 Albumin/Globulin Ratio 0.8 (1.0-1.8) L 09/29/17 04:35 Urine Source MIDSTREAM 09/27/17 11:50 Urine Color YELLOW 09/27/17 11:50 Urine Clarity HAZY (CLEAR) 09/27/17 11:50 Urine pH 6.5 (4.6 - 8.0) 09/27/17 11:50 Ur Specific [place] 1.010 (1.005-1.030) 09/27/17 11:50 Urine Protein 30 mg/dL (NEGATIVE) H 09/27/17 11:50 Urine Glucose (UA) NEGATIVE mg/dL (NEGATIVE) 09/27/17 11:50 Urine Ketones NEGATIVE mg/dL (NEGATIVE) 09/27/17 11:50 Urine Blood LARGE (NEGATIVE) H 09/27/17 11:50 Urine Nitrate NEGATIVE (NEGATIVE) 09/27/17 11:50 Urine Bilirubin NEGATIVE (NEGATIVE) 09/27/17 11:50 Urine Urobilinogen 0.2 E.U./dL (0.2 - 1.0) 09/27/17 11:50 Ur Leukocyte Esterase MODERATE (NEGATIVE) H 09/27/17 11:50 Urine RBC 25-50 /hpf (0-5) H 09/27/17 11:50 Urine WBC 6-10 /hpf (0-5) H 09/27/17 11:50 Ur Epithelial Cells MODERATE /lpf (FEW) 09/27/17 11:50 Urine Bacteria 3+ /hpf (NONE SEEN) H 09/27/17 11:50 Stool Occult Blood POSITIVE (NEGATIVE) H 09/28/17 15:15 Vancomycin Trough 13.7 ug/mL (5-10) H 09/29/17 08:05 Blood Type A POSITIVE 09/27/17 13:10 Antibody Screen NEGATIVE 09/27/17 13:10 Crossmatch See Detail 09/27/17 13:10 - Physical Exam Vitals and I&O: Vital Signs Temp 99.2 F 09/30/17 17:00 Pulse 71 09/30/17 17:00 Resp 16 09/30/17 17:00 BP 102/57 09/30/17 17:00 Pulse Ox 100 09/30/17 17:00 Intake & Output 09/29/17 09/30/17 09/30/17 18:59 06:59 18:59 Intake Total 2682.321 6156 498.563 Output Total 875 1100 Balance 163.667 460 498.563 Weight (lbs) 177 lb 3.2 oz 180 lb Intake: Intake, IV Amount 328.114 8491 498.563 Cefepime 1 gm In Dextrose 50 50 50 5% 50 ml @ 100 mls/hr IV Q12H [facility] Rx#:[id number] D5-0.45NS 1,000 ml @ 80 245.550 7814 mls/hr IV .[id number] [facility] Rx #:[id number] Norepinephrine 4 mg In 0 198.563 Dextrose 5% 250 ml @ 8 MCG/MIN 30.48 mls/hr IV TITR PRN Rx#:[id number] Vancomycin HCl 1.25 gm In 250 250 Sodium Chloride 0.9% 250 ml @ 165 mls/hr IV Q24H [facility] Rx#:[id number] Tube Feeding 300 460 Other 50 Output: Urine 875 750 Stool 350 Other: # Bowel Movements 1 1 Stool Characteristics Formed Formed Formed Black [place] Green Green Weight Source Bedscale Bedscale Active Medications: Current Medications Acetaminophen (Tylenol 650mg/20.3ml Suspension) 650 mg GT Q6HR PRN PRN Reason: Mild Pain or Fever >101 Stop: 11/26/17 13:59 Last Admin: 09/28/17 16:43 Dose: 650 mg Acetaminophen/Hydrocodone Bitart ([place] 5mg/325mg) 1 tab GT DAILY [facility] Stop: 11/27/17 08:59 Last Admin: 09/30/17 08:58 Dose: 1 tab Acetylcysteine (Mucomyst 20%) 2 ml HHN Q6HRT [facility] Stop: 11/26/17 18:59 Last Admin: 09/30/17 13:25 Dose: 2 ml Albuterol/Ipratropium (Duoneb Neb) 3 ml HHN Q2HRT PRN PRN Reason: Wheezing Stop: 11/26/17 12:30 Albuterol/Ipratropium (Duoneb Neb) 3 ml HHN Q6HRT [facility] Stop: 11/26/17 12:59 Last Admin: 09/30/17 13:25 Dose: 3 ml Allopurinol (Zyloprim) 200 mg GT DAILY [facility] Stop: 11/27/17 08:59 Last Admin: 09/30/17 08:59 Dose: 200 mg Amlodipine Besylate (Norvasc) 5 mg GT DAILY [facility] Stop: 11/27/17 08:59 Last Admin: 09/30/17 09:05 Dose: Not Given Ascorbic Acid (Vitamin C) 500 mg GT DAILY [facility] Stop: 11/27/17 08:59 Last Admin: 09/30/17 08:57 Dose: 500 mg Benztropine Mesylate (Cogentin) 1 mg GT BID [facility] Stop: 11/26/17 16:59 Last Admin: 09/30/17 08:58 Dose: 1 mg Carbidopa/Levodopa (Sinemet 25mg-100 Mg) 1 tab GT DAILY [facility] Stop: 11/27/17 08:59 Last Admin: 09/30/17 08:57 Dose: 1 tab [place] Oil/[place] Balsam/Trypsin (Venelex) 1 appl TP DAILY [facility] Stop: 11/27/17 08:59 Last Admin: 09/30/17 08:57 Dose: 1 appl Chlorhexidine Gluconate (Peridex) 15 ml MM 0800,2000 [facility] Stop: 11/29/17 19:59 Clonazepam (Klonopin) 0.5 mg GT BID [facility]; Protocol Stop: 11/26/17 16:59 Last Admin: 09/30/17 08:58 Dose: 0.5 mg Docusate Sodium (Colace) 250 mg GT BID [facility] Stop: 11/26/17 16:59 Last Admin: 09/30/17 08:57 Dose: 250 mg Ferrous Sulfate (Iron) 330 mg GT DAILY [facility] Stop: 11/27/17 08:59 Last Admin: 09/30/17 08:56 Dose: 330 mg Dextrose/Sodium Chloride (D5-0.45ns) 1,000 mls @ 80 mls/hr IV .[id number] [facility] Stop: 11/26/17 12:29 Last Admin: 09/30/17 15:42 Dose: 80 mls/hr Vancomycin HCl 1.25 gm/ Sodium (Chloride) 250 mls @ 165 mls/hr IV Q24H [facility] Stop: 11/27/17 08:59 Last Infusion: 09/30/17 10:45 Dose: Infused Norepinephrine Bitartrate 4 mg (/ Dextrose) 254 mls @ 30.48 mls/hr IV TITR PRN ; Protocol PRN Reason: BP MAINTENANCE (PER PROTOCOL) Stop: 11/26/17 21:35 Last Admin: 09/30/17 16:00 Dose: 2 mcg/min, 7.62 mls/hr Meropenem 1 gm/ Sodium (Chloride) 100 mls @ 100 mls/hr IV Q12HR [facility] Stop: 11/29/17 20:59 Insulin Aspart (Novolog) 0 units SUBQ Q6HR [facility]; Protocol Stop: 11/29/17 11:59 Insulin Human Isoph/Insulin Regular (Novolin 70/30) 22 units SUBQ HS [facility]; Protocol Stop: 11/26/17 20:59 Last Admin: 09/29/17 20:35 Dose: Not Given Insulin Human Isoph/Insulin Regular (Novolin 70/30) 45 units SUBQ DAILY [facility]; Protocol Stop: 11/27/17 08:59 Last Admin: 09/30/17 09:05 Dose: 45 units Lactobacillus Rhamnosus (Culturelle 15b) 1 each GT DAILY [facility] Stop: 11/26/17 16:59 Last Admin: 09/30/17 08:56 Dose: 1 each Lactulose (Cephulac) 20 gm GT BID PRN PRN Reason: BOWEL MANAGEMENT Stop: 11/26/17 12:26 Levetiracetam (Keppra) 1,000 mg GT Q12HR [facility] Stop: 11/26/17 20:59 Last Admin: 09/30/17 08:57 Dose: 1,000 mg Levothyroxine Sodium (Synthroid) 0.1 mg GT QDAC [facility] Stop: 11/27/17 07:29 Last Admin: 09/30/17 06:31 Dose: 0.1 mg Lisinopril (Zestril) 20 mg GT DAILY [facility] Stop: 11/27/17 08:59 Last Admin: 09/30/17 09:06 Dose: Not Given Metoclopramide HCl (Reglan) 10 mg GT Q6HR [facility] Stop: 11/26/17 17:59 Last Admin: 09/30/17 12:06 Dose: 10 mg Miscellaneous (Vancomycin Iv Per Pharmacy) 1 ea MC PRN [facility] Stop: 11/26/17 12:29 Morphine Sulfate (Morphine) 2 mg IVP Q4H PRN PRN Reason: Pain (Severe) Stop: 11/26/17 12:28 Ondansetron HCl (Zofran) 4 mg IV Q8H PRN PRN Reason: Nausea / Vomiting Stop: 11/26/17 12:28 Pantoprazole Sodium (Protonix) 40 mg IVP DAILY [facility] Stop: 11/27/17 09:44 Last Admin: 09/30/17 08:58 Dose: 40 mg Petrolatum (Vaseline Oint) 113 appl TP DAILY [facility] Stop: 11/27/17 08:59 Last Admin: 09/30/17 08:55 Dose: 113 appl Simvastatin (Zocor) 20 mg PO HS [facility]; Protocol Stop: 11/26/17 20:59 Last Admin: 09/29/17 20:15 Dose: 20 mg Sucralfate (Carafate) 1 gm GT QID [facility] Stop: 11/26/17 12:59 Last Admin: 09/30/17 12:06 Dose: 1 gm Tramadol HCl (Ultram) 50 mg GT Q6H PRN PRN Reason: Pain (Moderate) Stop: 11/26/17 12:26 Zinc Sulfate (Zinc Sulfate) 220 mg GT DAILY [facility] Stop: 11/27/17 08:59 Last Admin: 09/30/17 08:56 Dose: 220 mg General: weak, alert HEENT: NC/AT, PERRLA Neck: Supple, + trach Cardiovascular: RRR Abdomen: soft, non-tender, +GT - Procedures Procedures: Procedures Procedure Code Date AIRWAYS SURGICAL PROCEDURE 88964 03/03/16 BLOOD TRANSFUSION SERVICE 27895 09/27/17 CHANGE FEEDING DEVICE IN UP INTEST TRACT, LOGISTICS RESEARCH ENGINEER APPROACH [id number] 12/10/16 CHANGE GASTROSTOMY TUBE 03708 06/06/13 CONTINUOUS INVASIVE MECHANICAL VENTILATION <96 CONSEC HRS 96.71 02/02/13 CONTINUOUS INVASIVE MECHANICAL VENTILATION =/>96 CONSEC HRS 96.72 06/06/13 [place] [id number] 03/03/16 IMMUNIZATION ADMIN 18753 11/03/16 INFLUENZA VACCINATION 99.52 02/02/13 INSERT NON-TUNNEL CV CATH 25574 03/03/16 INSERT PICC CATH 81262 02/02/13 INSERTION OF INFUSION DEV INTO SUP VENA CAVA, PERC APPROACH [id number] 03/03/16 INTRODUCTION OF SERUM/TOX/VACCINE INTO MUSCLE, PERC APPROACH [id number] 03/03/16 OTHER GASTROSTOMY 43.19 06/03/10 REPLACE GASTROSTOMY TUBE 97.02 06/06/13 RESPIRATORY VENTILATION, 24-96 CONSECUTIVE HOURS [id number] 09/27/17 RESPIRATORY VENTILATION, GREATER THAN 96 CONSECUTIVE HOURS [id number] 12/10/16 TRANSFUSE NONAUT RED BLOOD CELLS IN PERIPH VEIN, PERC [id number] 09/27/17 VACCINATION NEC 99.55 02/02/13 VENOUS CATHETERIZATION NEC 38.93 02/02/13 VENT MGMT INPAT INIT DAY 03/03/16 VENT MGMT INPAT SUBQ DAY 03/03/16 Internal Medicine Assmt/Plan - Assessment Assessment: SEPSIS SECONDARY PNA ACUTE UTI, URINE CULTURE +PROTEUS MIRABILIS ANEMIA POSSIBLE GI BLEED VDRF CHRONIC HYDROCEPHALUS DEMENTIA DECUBITUS ULCER STAGE 3 DM OBESITY PARKINSON'S LEUKOCYTOSIS ACUTE RENAL INSUFFICIENCY - Plan Plan: DC MAXIPIME, SWITCH TO MERREM CONTINUE VENT SUPPORT MONITOR H/H CBC/BMP IN AM CONTINUE CURRENT PLAN OF CARE Nutritional Asmnt/Malnutr-PDOC - Dietary Evaluation Malnutrition Findings (Please click <Entered> for more info): Nutritional Asmnt/Malnutrition Start: 09/28/17 11: 43 Text: Status: Complete Freq: Protocol: Document 09/28/17 11:44 [id number] (Rec: 09/28/17 11:56 LCLINWOOD [id number]) Nutritional Asmnt/Malnutrition Patient General Information Nutritional Screening High Risk Consult Diagnosis severe anemia, possible GI bleed, sepsis Pertinent Medical Hx/Surgical Hx DM, parkinson, vent dependent, CARBU[employer]OR EXPERT shunt, decubitis ulcer, Gtube Subjective Information Consult received for diabetic stage 3 pressure ulcer POA. Pt seen on vent via trach at time of visit. Pt has gtube noted. Per NOAH Tomlinson, no nutrition plan at this time. pt is on NPO. Current Diet Order/ Nutrition Support NPO Pertinent Medications vitC, d5-0.45, colace, iron, novolog, novolin, culturelle, cephulac, synthroid, protonix, vancomycin, zinc Pertinent Labs 09/27 Na 135, Cl 96, BUN 53, Glucose 157, POC 76-185 Nutritional Hx/Data Height 5 ft 4 in Height (Calculated Centimeters) 162.6 Current Weight (lbs) 165 lb Weight (Calculated Kilograms) 74.8 Weight (Calculated Grams) 45989.7 [place] Body Weight 120 Body Mass Index (BMI) 28.3 Weight Status Overweight GI Symptoms GI Symptoms None Last BM 09/27 Difficult in: None Usual diet at home Diabetisource AC 50ml/hr x 20hr daily at care facility per chart Skin Integrity/Comment: pressure ulcer to sacrum Estimated Nutritional Goals BEE in Kcals: Using Current wt Calories/Kcals/Kg 27-32 Kcals Calculated 4922-8497 Protein: Using Current wt Protein g/k.2-1.4 Protein Calculated 72-84 Fluid: ml 1620-1920ml (1m/kcal) Nutritional Problem 2. Problem Problem increased nutrition needs ( calorie and protein) Etiology impaired skin integrity Signs/Symptoms: state 3 pressure ulcer 1. Problem Problem altered nutrition related labs Etiology hx of DM Signs/Symptoms: Glucose 157, POC 76-185 Malnutrition Alert Is there a minimum of two criteria No selected? Query Text:Check all the applicable criteria. A minimum of two criteria are recommended for diagnosis of either severe or non-severe malnutrition. Malnutrition Related to Morbid Obesity Malnutrition related to morbid obesity No Intervention/Recommendation Comments 1. Monitor NPO status. 2. If TF needed, recommend Diabetisource AC at 55ml/hr continuous and Arginaid 1pkg daily via Gtube for wound healing. This will provide 1584kcal, 79g protein and 1079ml free water, meeting 100 % of estemated nutritional needs 3. Monitor wt, labs and skin integrity 4. F/U as high risk in 2 days, 6/2 Expected Outcomes/Goals Expected Outcomes/Goals 1. Pt to meet at least 75% of nutritional needs 2. Wt stability, skin integrity to improve, labs to approach WNL.
[2017-09-30] MEDS: Chlorhexidine Gluconate 0.12% 15mL Mouthwash MM SCH (20:00)
[2017-10-01] MEDS: INSULIN ASPART, RECOMBINANT 100 UNITS/ML SUBQ SCH ×4 (00:41→17:06)
[2017-10-01] MEDS: D5-0.45NS 1,000 ML IV SCH (04:15)
[2017-10-01 04:46] LABS: HEMATOCRIT 22.5 % (41.0-60); MEAN CORPUSCULAR HEMOGLOBIN 25.1 pg (27.0-31.0); MEAN CORPUSCULAR HGB CONC 31.7 pg (28.0-36.0); PLATELET COUNT 230 Th/cmm (150-400); RED BLOOD COUNT 2.84 Mil/cmm (3.80-5.20); RED CELL DISTRIBUTION WIDTH 16.2 % (11.5-20.0); WHITE BLOOD COUNT 9.7 Th/cmm (4.8-10.8)
[2017-10-01 05:02] LABS: HEMOGLOBIN 7.1 gm/dL (12-16); MANUAL DIFF REQUIRED? YES
[2017-10-01 05:29] LABS: ANION GAP 12.3 (7.0-16.0); BUN - UREA NITROGEN 14 mg/dL (7-25); CALCIUM SERUM 8.1 mg/dL (8.6-10.3); CARBON DIOXIDE 18.5 mEq/L (21.0-31.0); CHLORIDE 109 mEq/L (98-107); CREATININE - SERUM 0.6 mg/dL (0.6-1.2); GLUCOSE 181 mg/dL (70-105); POTASSIUM SERUM 3.8 mEq/L (3.5-5.1); SODIUM SERUM 136 mEq/L (136-145)
[2017-10-01 05:55] LABS: LYMPHOCYTE 15 % (20-50); NEUTROPHILS 79 % (40-80); TOTAL CELLS COUNTED 100
[2017-10-01 05:56] LABS: EOSINOPHIL 5 % (0-5); HYPOCHROMIA 1+; MONOCYTE 1 % (2-10); PLATELET ESTIMATE ADEQUATE (NORMAL); POLYCHROMASIA 1+
[2017-10-01] MEDS: Albuterol/Ipratropium Neb 3 ML AERS HHN SCH ×3 (07:52→18:30)
[2017-10-01] MEDS: Levothyroxine 0.1 Mg Tab GT SCH (08:00)
[2017-10-01] MEDS: Chlorhexidine Gluconate 0.12% 15mL Mouthwash MM SCH ×2 (08:05→20:00)
[2017-10-01] MEDS: Multivitamin w/ Minerals Tab GT SCH (09:17)
[2017-10-01] MEDS: Hydrocodone/APAP 5mg/325mg Tab GT SCH (09:17)
[2017-10-01] MEDS: Lactobacillus Rhamnosus GG 15 Billion CFU CAP.SPRINK GT SCH (09:17)
[2017-10-01] MEDS: Benztropine 1 MG TAB GT SCH ×2 (09:18→16:38)
[2017-10-01] MEDS: Ferrous Sulfate 300 MG/5 ML UDC GT SCH (09:19)
[2017-10-01] MEDS: INSULIN 70/30 100 UNITS/ML SUBQ SCH ×2 (09:20→21:40)
[2017-10-01] MEDS: Venelex 60gm Tube TP SCH (09:27)
[2017-10-01] MEDS: Levetiracetam 500 mg/5mL 5mL UDSyr *for ORAL USE ONLY GT SCH ×2 (09:28→21:31)
[2017-10-01] MEDS: Petrolatum (White) Oint 0.6 Oz Tube TP SCH (09:28)
[2017-10-01] MEDS: Docusate Sodium 100 mg/10 mL UD GT SCH ×2 (09:28→16:37)
--- NOTE | 2017-10-01 12:28 | Internal Medicine Prog Note ---
Internal Medicine Subjective - Subjective Service Date: 10/01/17 (currently being transfused with 1/2 units of PRBC) Patient seen and examined:: with staff Patient is:: awake Per staff patient has:: tolerating meds Internal Medicine Objective - Results Result Diagrams: 10/01/17 04:25 10/01/17 04:25 Recent Labs: Laboratory Last Values WBC 9.7 Th/cmm (4.8-10.8) D 10/01/17 04:25 RBC 2.84 Mil/cmm (3.80-5.20) L 10/01/17 04:25 Hgb 7.1 gm/dL (12-16) L* 10/01/17 04:25 Hct 22.5 % (41.0-60) L 10/01/17 04:25 MCV 79.0 fl (81-100) L 10/01/17 04:25 MCH 25.1 pg (27.0-31.0) L 10/01/17 04:25 MCHC Differential 31.7 pg (28.0-36.0) 10/01/17 04:25 RDW 16.2 % (11.5-20.0) 10/01/17 04:25 Plt Count 230 Th/cmm (150-400) 10/01/17 04:25 MPV 7.0 fl 10/01/17 04:25 Neutrophils % 82.0 % (40.0-80.0) H 09/30/17 04:30 Lymphocytes % 8.7 % (20.0-50.0) L 09/30/17 04:30 Monocytes % 5.7 % (2.0-10.0) 09/30/17 04:30 Eosinophils % 3.4 % (0.0-5.0) 09/30/17 04:30 Basophils % 0.2 % (0.0-2.0) 09/30/17 04:30 Neutrophils (Manual) 79 % (40-80) 10/01/17 04:25 Lymphocytes 15 % (20-50) L 10/01/17 04:25 Monocytes 1 % (2-10) L 10/01/17 04:25 Eosinophils 5 % (0-5) 10/01/17 04:25 Hypochromia 1+ 10/01/17 04:25 Platelet Estimate ADEQUATE (NORMAL) 10/01/17 04:25 Polychromasia 1+ 10/01/17 04:25 Microcytosis 1+ 09/29/17 04:35 PT 11.5 SECONDS (9.5-11.5) 09/27/17 11:09 INR 1.10 (0.5-1.4) 09/27/17 11:09 PTT (Actin FS) 24.9 SECONDS (26.0-38.0) L 09/27/17 11:09 Sodium 136 mEq/L (136-145) 10/01/17 04:25 Potassium 3.8 mEq/L (3.5-5.1) 10/01/17 04:25 Chloride 109 mEq/L (98-107) H 10/01/17 04:25 Carbon Dioxide 18.5 mEq/L (21.0-31.0) L 10/01/17 04:25 Anion Gap 12.3 (7.0-16.0) 10/01/17 04:25 BUN 14 mg/dL (7-25) 10/01/17 04:25 Creatinine 0.6 mg/dL (0.6-1.2) 10/01/17 04:25 Est GFR ( Amer) TNP 10/01/17 04:25 Est GFR (Non-Af Amer) TNP 10/01/17 04:25 BUN/Creatinine Ratio 23.3 10/01/17 04:25 Glucose 181 mg/dL (70-105) H 10/01/17 04:25 POC Glucose 172 MG/DL (70 - 105) H 09/30/17 17:20 Hemoglobin A1c % 5.0 % (4.0-6.0) 09/29/17 04:35 Whole Bld Lactic Acid 2.21 mmol/L (0.60-1.99) H* 09/27/17 13:10 Calcium 8.1 mg/dL (8.6-10.3) L 10/01/17 04:25 Total Bilirubin 0.4 mg/dL (0.3-1.0) 09/29/17 04:35 AST 22 U/L (13-39) 09/29/17 04:35 ALT 27 U/L (7-52) 09/29/17 04:35 Alkaline Phosphatase 135 U/L (34-104) H 09/29/17 04:35 Creatine Kinase 308 U/L (30-223) H 09/27/17 11:09 CK-MB (CK-2) 10.6 ng/mL (0.6-6.3) H 09/27/17 11:09 Troponin I 0.01 ng/mL (0.01-0.05) 09/27/17 11:09 Total Protein 7.5 gm/dL (6.0-8.3) 09/29/17 04:35 Albumin 3.4 gm/dL (3.7-5.3) L 09/29/17 04:35 Globulin 4.1 gm/dL 09/29/17 04:35 Albumin/Globulin Ratio 0.8 (1.0-1.8) L 09/29/17 04:35 Urine Source MIDSTREAM 09/27/17 11:50 Urine Color YELLOW 09/27/17 11:50 Urine Clarity HAZY (CLEAR) 09/27/17 11:50 Urine pH 6.5 (4.6 - 8.0) 09/27/17 11:50 Ur Specific [place] 1.010 (1.005-1.030) 09/27/17 11:50 Urine Protein 30 mg/dL (NEGATIVE) H 09/27/17 11:50 Urine Glucose (UA) NEGATIVE mg/dL (NEGATIVE) 09/27/17 11:50 Urine Ketones NEGATIVE mg/dL (NEGATIVE) 09/27/17 11:50 Urine Blood LARGE (NEGATIVE) H 09/27/17 11:50 Urine Nitrate NEGATIVE (NEGATIVE) 09/27/17 11:50 Urine Bilirubin NEGATIVE (NEGATIVE) 09/27/17 11:50 Urine Urobilinogen 0.2 E.U./dL (0.2 - 1.0) 09/27/17 11:50 Ur Leukocyte Esterase MODERATE (NEGATIVE) H 09/27/17 11:50 Urine RBC 25-50 /hpf (0-5) H 09/27/17 11:50 Urine WBC 6-10 /hpf (0-5) H 09/27/17 11:50 Ur Epithelial Cells MODERATE /lpf (FEW) 09/27/17 11:50 Urine Bacteria 3+ /hpf (NONE SEEN) H 09/27/17 11:50 Stool Occult Blood POSITIVE (NEGATIVE) H 09/28/17 15:15 Vancomycin Trough 13.7 ug/mL (5-10) H 09/29/17 08:05 Blood Type A POSITIVE 10/01/17 06:15 Antibody Screen NEGATIVE 10/01/17 06:15 Crossmatch See Detail 10/01/17 06:15 - Physical Exam Vitals and I&O: Vital Signs Temp 98.2 F 10/01/17 10:00 Pulse 65 10/01/17 11:31 Resp 18 10/01/17 10:00 BP 139/53 10/01/17 10:00 Pulse Ox 100 10/01/17 11:31 Intake & Output 09/30/17 10/01/17 10/01/17 18:59 06:59 18:59 Intake Total 3351.259 4182 483.35 Output Total 600 Balance 651.656 5217 483.35 Weight (lbs) 181 lb 3 oz Intake: Intake, IV Amount 381.201 2456 483.35 Cefepime 1 gm In Dextrose 50 5% 50 ml @ 100 mls/hr IV Q12H [facility] Rx#:[id number] D5-0.45NS 1,000 ml @ 80 1000 mls/hr IV .[id number] [facility] Rx #:[id number] Meropenem 1 gm In Sodium 100 100 Chloride 0.9% 100 ml @ 100 mls/hr IV Q12HR [facility] Rx#:[id number] Norepinephrine 4 mg In 198.563 133.35 Dextrose 5% 250 ml @ 8 MCG/MIN 30.48 mls/hr IV TITR PRN Rx#:[id number] Vancomycin HCl 1.25 gm In 250 250 Sodium Chloride 0.9% 250 ml @ 165 mls/hr IV Q24H [facility] Rx#:[id number] Oral 0 Tube Feeding 550 Other 450 Output: Urine 600 Other: Stool Characteristics Formed Formed Formed Green Green Green Weight Source Bedscale Active Medications: Current Medications Acetaminophen (Tylenol 650mg/20.3ml Suspension) 650 mg GT Q6HR PRN PRN Reason: Mild Pain or Fever >101 Stop: 11/26/17 13:59 Last Admin: 09/30/17 21:41 Dose: 650 mg Acetaminophen/Hydrocodone Bitart ([place] 5mg/325mg) 1 tab GT DAILY [facility] Stop: 11/27/17 08:59 Last Admin: 10/01/17 09:17 Dose: 1 tab Acetylcysteine (Mucomyst 20%) 2 ml HHN Q6HRT [facility] Stop: 11/26/17 18:59 Last Admin: 10/01/17 07:51 Dose: 2 ml Albuterol/Ipratropium (Duoneb Neb) 3 ml HHN Q2HRT PRN PRN Reason: Wheezing Stop: 11/26/17 12:30 Albuterol/Ipratropium (Duoneb Neb) 3 ml HHN Q6HRT [facility] Stop: 11/26/17 12:59 Last Admin: 10/01/17 07:52 Dose: 3 ml Allopurinol (Zyloprim) 200 mg GT DAILY [facility] Stop: 11/27/17 08:59 Last Admin: 10/01/17 09:17 Dose: 200 mg Amlodipine Besylate (Norvasc) 5 mg GT DAILY [facility] Stop: 11/27/17 08:59 Last Admin: 10/01/17 09:27 Dose: Not Given Ascorbic Acid (Vitamin C) 500 mg GT DAILY [facility] Stop: 11/27/17 08:59 Last Admin: 10/01/17 09:17 Dose: 500 mg Benztropine Mesylate (Cogentin) 1 mg GT BID [facility] Stop: 11/26/17 16:59 Last Admin: 10/01/17 09:18 Dose: 1 mg Carbidopa/Levodopa (Sinemet 25mg-100 Mg) 1 tab GT DAILY [facility] Stop: 11/27/17 08:59 Last Admin: 10/01/17 09:28 Dose: 1 tab [place] Oil/Swazi Balsam/Trypsin (Venelex) 1 appl TP DAILY [facility] Stop: 11/27/17 08:59 Last Admin: 10/01/17 09:27 Dose: 1 appl Chlorhexidine Gluconate (Peridex) 15 ml MM 0800,2000 [facility] Stop: 11/29/17 19:59 Last Admin: 10/01/17 08:05 Dose: 15 ml Clonazepam (Klonopin) 0.5 mg GT BID [facility]; Protocol Stop: 11/26/17 16:59 Last Admin: 10/01/17 09:17 Dose: 0.5 mg Docusate Sodium (Colace) 250 mg GT BID [facility] Stop: 11/26/17 16:59 Last Admin: 10/01/17 09:28 Dose: 250 mg Ferrous Sulfate (Iron) 330 mg GT DAILY [facility] Stop: 11/27/17 08:59 Last Admin: 10/01/17 09:19 Dose: 330 mg Dextrose/Sodium Chloride (D5-0.45ns) 1,000 mls @ 80 mls/hr IV .[id number] [facility] Stop: 11/26/17 12:29 Last Admin: 10/01/17 04:15 Dose: 80 mls/hr Vancomycin HCl 1.25 gm/ Sodium (Chloride) 250 mls @ 165 mls/hr IV Q24H [facility] Stop: 11/27/17 08:59 Last Infusion: 10/01/17 10:49 Dose: Infused Norepinephrine Bitartrate 4 mg (/ Dextrose) 254 mls @ 30.48 mls/hr IV TITR PRN ; Protocol PRN Reason: BP MAINTENANCE (PER PROTOCOL) Stop: 11/26/17 21:35 Last Titration: 10/01/17 09:30 Dose: 0 mcg/min, 0 mls/hr Meropenem 1 gm/ Sodium (Chloride) 100 mls @ 100 mls/hr IV Q12HR [facility] Stop: 11/29/17 20:59 Last Infusion: 10/01/17 09:15 Dose: Infused Insulin Aspart (Novolog) 0 units SUBQ Q6HR [facility]; Protocol Stop: 11/29/17 11:59 Last Admin: 10/01/17 06:23 Dose: 2 units Insulin Human Isoph/Insulin Regular (Novolin 70/30) 22 units SUBQ HS [facility]; Protocol Stop: 11/26/17 20:59 Last Admin: 09/30/17 21:44 Dose: 22 units Insulin Human Isoph/Insulin Regular (Novolin 70/30) 45 units SUBQ DAILY [facility]; Protocol Stop: 11/27/17 08:59 Last Admin: 10/01/17 09:20 Dose: 45 units Lactobacillus Rhamnosus (Culturelle 15b) 1 each GT DAILY [facility] Stop: 11/26/17 16:59 Last Admin: 10/01/17 09:17 Dose: 1 each Lactulose (Cephulac) 20 gm GT BID PRN PRN Reason: BOWEL MANAGEMENT Stop: 11/26/17 12:26 Levetiracetam (Keppra) 1,000 mg GT Q12HR [facility] Stop: 11/26/17 20:59 Last Admin: 10/01/17 09:28 Dose: 1,000 mg Levothyroxine Sodium (Synthroid) 0.1 mg GT QDAC [facility] Stop: 11/27/17 07:29 Last Admin: 10/01/17 08:00 Dose: 0.1 mg Lisinopril (Zestril) 20 mg GT DAILY [facility] Stop: 11/27/17 08:59 Last Admin: 10/01/17 09:26 Dose: Not Given Metoclopramide HCl (Reglan) 10 mg GT Q6HR [facility] Stop: 11/26/17 17:59 Last Admin: 10/01/17 06:24 Dose: 10 mg Miscellaneous (Vancomycin Iv Per Pharmacy) 1 ea MC PRN [facility] Stop: 11/26/17 12:29 Morphine Sulfate (Morphine) 2 mg IVP Q4H PRN PRN Reason: Pain (Severe) Stop: 11/26/17 12:28 Ondansetron HCl (Zofran) 4 mg IV Q8H PRN PRN Reason: Nausea / Vomiting Stop: 11/26/17 12:28 Pantoprazole Sodium (Protonix) 40 mg IVP DAILY [facility] Stop: 11/27/17 09:44 Last Admin: 10/01/17 09:19 Dose: 40 mg Petrolatum (Vaseline Oint) 113 appl TP DAILY [facility] Stop: 11/27/17 08:59 Last Admin: 10/01/17 09:28 Dose: 113 appl Simvastatin (Zocor) 20 mg PO HS [facility]; Protocol Stop: 11/26/17 20:59 Last Admin: 09/30/17 21:41 Dose: 20 mg Sucralfate (Carafate) 1 gm GT QID [facility] Stop: 11/26/17 12:59 Last Admin: 10/01/17 09:19 Dose: 1 gm Tramadol HCl (Ultram) 50 mg GT Q6H PRN PRN Reason: Pain (Moderate) Stop: 11/26/17 12:26 Zinc Sulfate (Zinc Sulfate) 220 mg GT DAILY [facility] Stop: 11/27/17 08:59 Last Admin: 10/01/17 09:17 Dose: 220 mg General: weak, alert HEENT: NC/AT, PERRLA Neck: Supple, + trach Cardiovascular: RRR Abdomen: soft, non-tender, +GT - Procedures Procedures: Procedures Procedure Code Date AIRWAYS SURGICAL PROCEDURE 29132 03/03/16 BLOOD TRANSFUSION SERVICE 83360 09/27/17 CHANGE FEEDING DEVICE IN UP INTEST TRACT, CAPTAIN/CHECK AIRMAN APPROACH [id number] 12/10/16 CHANGE GASTROSTOMY TUBE 13427 06/06/13 CONTINUOUS INVASIVE MECHANICAL VENTILATION <96 CONSEC HRS 96.71 02/02/13 CONTINUOUS INVASIVE MECHANICAL VENTILATION =/>96 CONSEC HRS 96.72 06/06/13 [place] [address] 03/03/16 IMMUNIZATION ADMIN 41320 03/03/16 INFLUENZA VACCINATION 99.52 02/02/13 INSERT NON-TUNNEL CV CATH 59459 03/03/16 INSERT PICC CATH 76462 02/02/13 INSERTION OF INFUSION DEV INTO SUP VENA CAVA, PERC APPROACH [id number] 03/03/16 INTRODUCTION OF SERUM/TOX/VACCINE INTO MUSCLE, PERC APPROACH [id number] 03/03/16 OTHER GASTROSTOMY 43.19 06/03/10 REPLACE GASTROSTOMY TUBE 97.02 06/06/13 RESPIRATORY VENTILATION, 24-96 CONSECUTIVE HOURS [id number] 09/27/17 RESPIRATORY VENTILATION, GREATER THAN 96 CONSECUTIVE HOURS [id number] 12/10/16 TRANSFUSE NONAUT RED BLOOD CELLS IN PERIPH VEIN, PERC [id number] 09/27/17 VACCINATION NEC 99.55 02/02/13 VENOUS CATHETERIZATION NEC 38.93 02/02/13 VENT MGMT INPAT INIT DAY 44595 03/03/16 VENT MGMT INPAT SUBQ DAY 69669 03/03/16 Internal Medicine Assmt/Plan - Assessment Assessment: SEPSIS SECONDARY PNA ACUTE UTI, URINE CULTURE +PROTEUS MIRABILIS ANEMIA POSSIBLE GI BLEED VDRF CHRONIC HYDROCEPHALUS DEMENTIA DECUBITUS ULCER STAGE 3 DM OBESITY PARKINSON'S LEUKOCYTOSIS ACUTE RENAL INSUFFICIENCY - Plan Plan: CONTINUE IV ANTIBIOTIC MERREM CONTINUE VENT SUPPORT MONITOR H/H CBC/BMP IN AM CONTINUE CURRENT PLAN OF CARE Nutritional Asmnt/Malnutr-PDOC - Dietary Evaluation Malnutrition Findings (Please click <Entered> for more info): Nutritional Asmnt/Malnutrition Start: 09/28/17 11: 43 Text: Status: Complete Freq: Protocol: Document 09/28/17 11:44 CARLOS (Rec: 09/28/17 11:56 CARLOS [id number]) Nutritional Asmnt/Malnutrition Patient General Information Nutritional Screening High Risk Consult Diagnosis severe anemia, possible GI bleed, sepsis Pertinent Medical Hx/Surgical Hx DM, parkinson, vent dependent, [employer] shunt, decubitis ulcer, Gtube Subjective Information Consult received for diabetic stage 3 pressure ulcer POA. Pt seen on vent via trach at time of visit. Pt has gtube noted. Per RN Bushra, no nutrition plan at this time. pt is on NPO. Current Diet Order/ Nutrition Support NPO Pertinent Medications vitC, d5-0.45, colace, iron, novolog, novolin, culturelle, cephulac, synthroid, protonix, vancomycin, zinc Pertinent Labs 09/27 Na 135, Cl 96, BUN 53, Glucose 157, POC 76-185 Nutritional Hx/Data Height 5 ft 4 in Height (Calculated Centimeters) 162.6 Current Weight (lbs) 165 lb Weight (Calculated Kilograms) 74.8 Weight (Calculated Grams) 98542.7 [place] Body Weight 120 Body Mass Index (BMI) 28.3 Weight Status Overweight GI Symptoms GI Symptoms None Last BM 09/27 Difficult in: None Usual diet at home Diabetisource AC 50ml/hr x 20hr daily at care facility per chart Skin Integrity/Comment: pressure ulcer to sacrum Estimated Nutritional Goals BEE in Kcals: Using Current wt Calories/Kcals/Kg 27-32 Kcals Calculated 1742-6222 Protein: Using Current wt Protein g/k.2-1.4 Protein Calculated 72-84 Fluid: ml 1620-1920ml (1m/kcal) Nutritional Problem 2. Problem Problem increased nutrition needs ( calorie and protein) Etiology impaired skin integrity Signs/Symptoms: state 3 pressure ulcer 1. Problem Problem altered nutrition related labs Etiology hx of DM Signs/Symptoms: Glucose 157, POC 76-185 Malnutrition Alert Is there a minimum of two criteria No selected? Query Text:Check all the applicable criteria. A minimum of two criteria are recommended for diagnosis of either severe or non-severe malnutrition. Malnutrition Related to Morbid Obesity Malnutrition related to morbid obesity No Intervention/Recommendation Comments 1. Monitor NPO status. 2. If TF needed, recommend Diabetisource AC at 55ml/hr continuous and Arginaid 1pkg daily via Gtube for wound healing. This will provide 1584kcal, 79g protein and 1079ml free water, meeting 100 % of estemated nutritional needs 3. Monitor wt, labs and skin integrity 4. F/U as high risk in 2 days, 6/2 Expected Outcomes/Goals Expected Outcomes/Goals 1. Pt to meet at least 75% of nutritional needs 2. Wt stability, skin integrity to improve, labs to approach WNL.
[2017-10-02] MEDS: INSULIN ASPART, RECOMBINANT 100 UNITS/ML SUBQ SCH ×4 (00:26→17:07)
[2017-10-02] MEDS: Albuterol/Ipratropium Neb 3 ML AERS HHN SCH ×4 (00:48→19:18)
[2017-10-02 05:07] LABS: % BASOPHILS 0.4 % (0.0-2.0); % EOSINOPHILS 5.4 % (0.0-5.0); % LYMPHOCYTES 12.8 % (20.0-50.0); % MONOCYTES 6.1 % (2.0-10.0); % NEUTROPHILS 75.3 % (40.0-80.0); EOSINOPHILE ABSOLUTE 0.5 Th/cmm (0.1-0.4); LYMPHOCYTE ABSOLUTE 1.2 Th/cmm (1.5-3.0); MEAN CELL VOLUME 81.5 fl (81-100); MEAN CORPUSCULAR HEMOGLOBIN 27.2 pg (27.0-31.0); MEAN CORPUSCULAR HGB CONC 33.4 pg (28.0-36.0); MEAN PLATELET VOLUME 7.7 fl; MONOCYTE ABSOLUTE 0.6 Th/cmm (0.3-1.0); NEUTROPHILE ABSOLUTE 7.3 Th/cmm (1.8-8.0); PLATELET COUNT 218 Th/cmm (150-400); RED BLOOD COUNT 3.88 Mil/cmm (3.80-5.20); RED CELL DISTRIBUTION WIDTH 16.3 % (11.5-20.0); WHITE BLOOD COUNT 9.6 Th/cmm (4.8-10.8)
[2017-10-02 05:10] LABS: HEMATOCRIT 31.6 % (41.0-60); HEMOGLOBIN 10.6 gm/dL (12-16)
[2017-10-02 05:12] LABS: ANION GAP 8.7 (7.0-16.0); BUN - UREA NITROGEN 17 mg/dL (7-25); CALCIUM SERUM 7.9 mg/dL (8.6-10.3); CARBON DIOXIDE 21.2 mEq/L (21.0-31.0); CHLORIDE 110 mEq/L (98-107); CREATININE - SERUM 0.6 mg/dL (0.6-1.2); GLUCOSE 177 mg/dL (70-105); POTASSIUM SERUM 3.9 mEq/L (3.5-5.1); SODIUM SERUM 136 mEq/L (136-145)
[2017-10-02] MEDS: Levothyroxine 0.1 Mg Tab GT SCH (06:46)
[2017-10-02] MEDS: D5-0.45NS 1,000 ML IV SCH ×2 (06:55→12:15)
[2017-10-02] MEDS: INSULIN 70/30 100 UNITS/ML SUBQ SCH ×2 (08:34→21:10)
[2017-10-02] MEDS: Docusate Sodium 100 mg/10 mL UD GT SCH ×2 (08:38→17:08)
[2017-10-02] MEDS: Levetiracetam 500 mg/5mL 5mL UDSyr *for ORAL USE ONLY GT SCH ×2 (08:38→21:01)
[2017-10-02] MEDS: Ferrous Sulfate 300 MG/5 ML UDC GT SCH (08:39)
[2017-10-02] MEDS: Benztropine 1 MG TAB GT SCH ×2 (08:40→17:08)
[2017-10-02] MEDS: Lactobacillus Rhamnosus GG 15 Billion CFU CAP.SPRINK GT SCH (08:40)
[2017-10-02] MEDS: Hydrocodone/APAP 5mg/325mg Tab GT SCH (08:41)
[2017-10-02] MEDS: Chlorhexidine Gluconate 0.12% 15mL Mouthwash MM SCH ×2 (08:42→20:00)
[2017-10-02] MEDS: Petrolatum (White) Oint 0.6 Oz Tube TP SCH (08:44)
[2017-10-02] MEDS: Venelex 60gm Tube TP SCH (08:44)
[2017-10-02] MEDS: Multivitamin w/ Minerals Tab GT SCH (08:44)
--- NOTE | 2017-10-02 10:04 | Internal Medicine Prog Note ---
Internal Medicine Subjective - Subjective Service Date: 10/02/17 (REMAINS ON LEVOPHED 1mcg/min ) Patient seen and examined:: with staff Patient is:: awake Patient Complaints of:: congestion Per staff patient has:: tolerating meds Internal Medicine Objective - Results Result Diagrams: 10/02/17 04:25 10/02/17 04:25 Recent Labs: Laboratory Last Values WBC 9.6 Th/cmm (4.8-10.8) 10/02/17 04:25 RBC 3.88 Mil/cmm (3.80-5.20) 10/02/17 04:25 Hgb 10.6 gm/dL (12-16) L D 10/02/17 04:25 Hct 31.6 % (41.0-60) L D 10/02/17 04:25 MCV 81.5 fl (81-100) 10/02/17 04:25 MCH 27.2 pg (27.0-31.0) 10/02/17 04:25 MCHC Differential 33.4 pg (28.0-36.0) 10/02/17 04:25 RDW 16.3 % (11.5-20.0) 10/02/17 04:25 Plt Count 218 Th/cmm (150-400) 10/02/17 04:25 MPV 7.7 fl 10/02/17 04:25 Neutrophils % 75.3 % (40.0-80.0) 10/02/17 04:25 Lymphocytes % 12.8 % (20.0-50.0) L 10/02/17 04:25 Monocytes % 6.1 % (2.0-10.0) 10/02/17 04:25 Eosinophils % 5.4 % (0.0-5.0) H 10/02/17 04:25 Basophils % 0.4 % (0.0-2.0) 10/02/17 04:25 Neutrophils (Manual) 79 % (40-80) 10/01/17 04:25 Lymphocytes 15 % (20-50) L 10/01/17 04:25 Monocytes 1 % (2-10) L 10/01/17 04:25 Eosinophils 5 % (0-5) 10/01/17 04:25 Hypochromia 1+ 10/01/17 04:25 Platelet Estimate ADEQUATE (NORMAL) 10/01/17 04:25 Polychromasia 1+ 10/01/17 04:25 Microcytosis 1+ 09/29/17 04:35 PT 11.5 SECONDS (9.5-11.5) 09/27/17 11:09 INR 1.10 (0.5-1.4) 09/27/17 11:09 PTT (Actin FS) 24.9 SECONDS (26.0-38.0) L 09/27/17 11:09 Sodium 136 mEq/L (136-145) 10/02/17 04:25 Potassium 3.9 mEq/L (3.5-5.1) 10/02/17 04:25 Chloride 110 mEq/L (98-107) H 10/02/17 04:25 Carbon Dioxide 21.2 mEq/L (21.0-31.0) 10/02/17 04:25 Anion Gap 8.7 (7.0-16.0) 10/02/17 04:25 BUN 17 mg/dL (7-25) 10/02/17 04:25 Creatinine 0.6 mg/dL (0.6-1.2) 10/02/17 04:25 Est GFR ( Amer) TNP 10/02/17 04:25 Est GFR (Non-Af Amer) TNP 10/02/17 04:25 BUN/Creatinine Ratio 28.3 10/02/17 04:25 Glucose 177 mg/dL (70-105) H 10/02/17 04:25 POC Glucose 172 MG/DL (70 - 105) H 09/30/17 17:20 Hemoglobin A1c % 5.0 % (4.0-6.0) 09/29/17 04:35 Whole Bld Lactic Acid 2.21 mmol/L (0.60-1.99) H* 09/27/17 13:10 Calcium 7.9 mg/dL (8.6-10.3) L 10/02/17 04:25 Total Bilirubin 0.4 mg/dL (0.3-1.0) 09/29/17 04:35 AST 22 U/L (13-39) 09/29/17 04:35 ALT 27 U/L (7-52) 09/29/17 04:35 Alkaline Phosphatase 135 U/L (34-104) H 09/29/17 04:35 Creatine Kinase 308 U/L (30-223) H 09/27/17 11:09 CK-MB (CK-2) 10.6 ng/mL (0.6-6.3) H 09/27/17 11:09 Troponin I 0.01 ng/mL (0.01-0.05) 09/27/17 11:09 Total Protein 7.5 gm/dL (6.0-8.3) 09/29/17 04:35 Albumin 3.4 gm/dL (3.7-5.3) L 09/29/17 04:35 Globulin 4.1 gm/dL 09/29/17 04:35 Albumin/Globulin Ratio 0.8 (1.0-1.8) L 09/29/17 04:35 Urine Source MIDSTREAM 09/27/17 11:50 Urine Color YELLOW 09/27/17 11:50 Urine Clarity HAZY (CLEAR) 09/27/17 11:50 Urine pH 6.5 (4.6 - 8.0) 09/27/17 11:50 Ur Specific [place] 1.010 (1.005-1.030) 09/27/17 11:50 Urine Protein 30 mg/dL (NEGATIVE) H 09/27/17 11:50 Urine Glucose (UA) NEGATIVE mg/dL (NEGATIVE) 09/27/17 11:50 Urine Ketones NEGATIVE mg/dL (NEGATIVE) 09/27/17 11:50 Urine Blood LARGE (NEGATIVE) H 09/27/17 11:50 Urine Nitrate NEGATIVE (NEGATIVE) 09/27/17 11:50 Urine Bilirubin NEGATIVE (NEGATIVE) 09/27/17 11:50 Urine Urobilinogen 0.2 E.U./dL (0.2 - 1.0) 09/27/17 11:50 Ur Leukocyte Esterase MODERATE (NEGATIVE) H 09/27/17 11:50 Urine RBC 25-50 /hpf (0-5) H 09/27/17 11:50 Urine WBC 6-10 /hpf (0-5) H 09/27/17 11:50 Ur Epithelial Cells MODERATE /lpf (FEW) 09/27/17 11:50 Urine Bacteria 3+ /hpf (NONE SEEN) H 09/27/17 11:50 Stool Occult Blood POSITIVE (NEGATIVE) H 09/28/17 15:15 Vancomycin Trough 13.7 ug/mL (5-10) H 09/29/17 08:05 Blood Type A POSITIVE 10/01/17 06:15 Antibody Screen NEGATIVE 10/01/17 06:15 Crossmatch See Detail 10/01/17 06:15 - Physical Exam Vitals and I&O: Vital Signs Temp 99 F 10/02/17 04:00 Pulse 72 10/02/17 09:00 Resp 16 10/02/17 06:00 BP 99/56 10/02/17 08:43 Pulse Ox 100 10/02/17 09:00 Intake & Output 10/01/17 10/02/17 10/02/17 18:59 06:59 18:59 Intake Total 3083.35 860 Output Total 850 700 Balance 2233.35 160 Weight (lbs) 183 lb 2 oz 186 lb Intake: Intake, IV Amount 1483.35 100 D5-0.45NS 1,000 ml @ 80 1000 mls/hr IV .[id number] [facility] Rx #:[id number] Meropenem 1 gm In Sodium 100 100 Chloride 0.9% 100 ml @ 100 mls/hr IV Q12HR [facility] Rx#:[id number] Norepinephrine 4 mg In 133.35 Dextrose 5% 250 ml @ 8 MCG/MIN 30.48 mls/hr IV TITR PRN Rx#:[id number] Vancomycin HCl 1.25 gm In 250 Sodium Chloride 0.9% 250 ml @ 165 mls/hr IV Q24H [facility] Rx#:[id number] Tube Feeding 550 660 Blood Product 500 Other 550 100 Output: Urine 850 700 Other: # Bowel Movements 1 1 Stool Characteristics Formed Green Weight Source Bedscale Bedscale Active Medications: Current Medications Acetaminophen (Tylenol 650mg/20.3ml Suspension) 650 mg GT Q6HR PRN PRN Reason: Mild Pain or Fever >101 Stop: 11/26/17 13:59 Last Admin: 10/01/17 22:48 Dose: 650 mg Acetaminophen/Hydrocodone Bitart (Powell 5mg/325mg) 1 tab GT DAILY [facility] Stop: 11/27/17 08:59 Last Admin: 10/02/17 08:41 Dose: 1 tab Acetylcysteine (Mucomyst 20%) 2 ml HHN Q6HRT [facility] Stop: 11/26/17 18:59 Last Admin: 10/02/17 07:08 Dose: 2 ml Albuterol/Ipratropium (Duoneb Neb) 3 ml HHN Q2HRT PRN PRN Reason: Wheezing Stop: 11/26/17 12:30 Albuterol/Ipratropium (Duoneb Neb) 3 ml HHN Q6HRT [facility] Stop: 11/26/17 12:59 Last Admin: 10/02/17 07:07 Dose: 3 ml Allopurinol (Zyloprim) 200 mg GT DAILY [facility] Stop: 11/27/17 08:59 Last Admin: 10/02/17 08:42 Dose: 200 mg Amlodipine Besylate (Norvasc) 5 mg GT DAILY [facility] Stop: 11/27/17 08:59 Last Admin: 10/02/17 08:43 Dose: Not Given Ascorbic Acid (Vitamin C) 500 mg GT DAILY [facility] Stop: 11/27/17 08:59 Last Admin: 10/02/17 08:41 Dose: 500 mg Benztropine Mesylate (Cogentin) 1 mg GT BID [facility] Stop: 11/26/17 16:59 Last Admin: 10/02/17 08:40 Dose: 1 mg Carbidopa/Levodopa (Sinemet 25mg-100 Mg) 1 tab GT DAILY [facility] Stop: 11/27/17 08:59 Last Admin: 10/02/17 08:39 Dose: 1 tab Fulda Oil/Romanian Balsam/Trypsin (Venelex) 1 appl TP DAILY [facility] Stop: 11/27/17 08:59 Last Admin: 10/02/17 08:44 Dose: 1 appl Chlorhexidine Gluconate (Peridex) 15 ml MM 0800,2000 [facility] Stop: 11/29/17 19:59 Last Admin: 10/02/17 08:42 Dose: 15 ml Clonazepam (Klonopin) 0.5 mg GT BID [facility]ANCISCO; Protocol Stop: 11/26/17 16:59 Last Admin: 10/02/17 08:41 Dose: 0.5 mg Docusate Sodium (Colace) 250 mg GT BID [facility] Stop: 11/26/17 16:59 Last Admin: 10/02/17 08:38 Dose: 250 mg Ferrous Sulfate (Iron) 330 mg GT DAILY [facility] Stop: 11/27/17 08:59 Last Admin: 10/02/17 08:39 Dose: 330 mg Dextrose/Sodium Chloride (D5-0.45ns) 1,000 mls @ 80 mls/hr IV .[id number] [facility] Stop: 11/26/17 12:29 Last Admin: 10/02/17 06:55 Dose: 80 mls/hr Vancomycin HCl 1.25 gm/ Sodium (Chloride) 250 mls @ 165 mls/hr IV Q24H [facility] Stop: 11/27/17 08:59 Last Admin: 10/02/17 09:24 Dose: 165 mls/hr Norepinephrine Bitartrate 4 mg (/ Dextrose) 254 mls @ 30.48 mls/hr IV TITR PRN ; Protocol PRN Reason: BP MAINTENANCE (PER PROTOCOL) Stop: 11/26/17 21:35 Last Titration: 10/01/17 09:30 Dose: 0 mcg/min, 0 mls/hr Meropenem 1 gm/ Sodium (Chloride) 100 mls @ 100 mls/hr IV Q12HR [facility] Stop: 11/29/17 20:59 Last Admin: 10/02/17 08:30 Dose: 100 mls/hr Insulin Aspart (Novolog) 0 units SUBQ Q6HR [facility]; Protocol Stop: 11/29/17 11:59 Last Admin: 10/02/17 06:06 Dose: 2 units Insulin Human Isoph/Insulin Regular (Novolin 70/30) 22 units SUBQ HS [facility]ANCISCO; Protocol Stop: 11/26/17 20:59 Last Admin: 10/01/17 21:40 Dose: 22 units Insulin Human Isoph/Insulin Regular (Novolin 70/30) 45 units SUBQ DAILY [facility]CO; Protocol Stop: 11/27/17 08:59 Last Admin: 10/02/17 08:34 Dose: 45 units Lactobacillus Rhamnosus (Culturelle 15b) 1 each GT DAILY [facility] Stop: 11/26/17 16:59 Last Admin: 10/02/17 08:40 Dose: 1 each Lactulose (Cephulac) 20 gm GT BID PRN PRN Reason: BOWEL MANAGEMENT Stop: 11/26/17 12:26 Levetiracetam (Keppra) 1,000 mg GT Q12HR [facility] Stop: 11/26/17 20:59 Last Admin: 10/02/17 08:38 Dose: 1,000 mg Levothyroxine Sodium (Synthroid) 0.1 mg GT QDAC [facility] Stop: 11/27/17 07:29 Last Admin: 10/02/17 06:46 Dose: 0.1 mg Lisinopril (Zestril) 20 mg GT DAILY [facility] Stop: 11/27/17 08:59 Last Admin: 10/02/17 08:43 Dose: Not Given Metoclopramide HCl (Reglan) 10 mg GT Q6HR [facility] Stop: 11/26/17 17:59 Last Admin: 10/02/17 06:06 Dose: 10 mg Miscellaneous (Vancomycin Iv Per Pharmacy) 1 ea MC PRN [facility] Stop: 11/26/17 12:29 Morphine Sulfate (Morphine) 2 mg IVP Q4H PRN PRN Reason: Pain (Severe) Stop: 11/26/17 12:28 Ondansetron HCl (Zofran) 4 mg IV Q8H PRN PRN Reason: Nausea / Vomiting Stop: 11/26/17 12:28 Pantoprazole Sodium (Protonix) 40 mg IVP DAILY [facility] Stop: 11/27/17 09:44 Last Admin: 10/02/17 08:38 Dose: 40 mg Petrolatum (Vaseline Oint) 113 appl TP DAILY [facility] Stop: 11/27/17 08:59 Last Admin: 10/02/17 08:44 Dose: 113 appl Simvastatin (Zocor) 20 mg PO HS [facility]ANCISCO; Protocol Stop: 11/26/17 20:59 Last Admin: 10/01/17 21:32 Dose: 20 mg Sucralfate (Carafate) 1 gm GT QID [facility] Stop: 11/26/17 12:59 Last Admin: 10/02/17 08:38 Dose: 1 gm Tramadol HCl (Ultram) 50 mg GT Q6H PRN PRN Reason: Pain (Moderate) Stop: 11/26/17 12:26 Zinc Sulfate (Zinc Sulfate) 220 mg GT DAILY [facility] Stop: 11/27/17 08:59 Last Admin: 10/01/17 09:17 Dose: 220 mg General: weak, alert HEENT: NC/AT, PERRLA Neck: Supple, + trach Cardiovascular: RRR Abdomen: soft, non-tender, +GT - Procedures Procedures: Procedures Procedure Code Date AIRWAYS SURGICAL PROCEDURE 00416 03/03/16 BLOOD TRANSFUSION SERVICE 94561 09/27/17 CHANGE FEEDING DEVICE IN UP INTEST TRACT, MEDICAL TECHNOLOGIST APPROACH [id number] 12/10/16 CHANGE GASTROSTOMY TUBE 31691 06/06/13 CONTINUOUS INVASIVE MECHANICAL VENTILATION <96 CONSEC HRS 96.71 02/02/13 CONTINUOUS INVASIVE MECHANICAL VENTILATION =/>96 CONSEC HRS 96.72 06/06/13 [place] [address] 03/03/16 IMMUNIZATION ADMIN 24549 03/03/16 INFLUENZA VACCINATION 99.52 02/02/13 INSERT NON-TUNNEL CV CATH 42414 03/03/16 INSERT PICC CATH 62660 02/02/13 INSERTION OF INFUSION DEV INTO SUP VENA CAVA, PERC APPROACH [id number] 03/03/16 INTRODUCTION OF SERUM/TOX/VACCINE INTO MUSCLE, PERC APPROACH [id number] 03/03/16 OTHER GASTROSTOMY 43.19 06/03/10 REPLACE GASTROSTOMY TUBE 97.02 06/06/13 RESPIRATORY VENTILATION, 24-96 CONSECUTIVE HOURS [id number] 09/27/17 RESPIRATORY VENTILATION, GREATER THAN 96 CONSECUTIVE HOURS [id number] 12/10/16 TRANSFUSE NONAUT RED BLOOD CELLS IN PERIPH VEIN, PERC 28042Q1 09/27/17 VACCINATION NEC 99.55 02/02/13 VENOUS CATHETERIZATION NEC 38.93 02/02/13 VENT MGMT INPAT INIT DAY 82576 03/03/16 VENT MGMT INPAT SUBQ DAY 35341 03/03/16 Internal Medicine Assmt/Plan - Assessment Assessment: SEPSIS SECONDARY PNA ACUTE UTI, URINE CULTURE +PROTEUS MIRABILIS ESBL ANEMIA-REQUIRING TRANSFUSION POSSIBLE GI BLEED VDRF CHRONIC HYDROCEPHALUS DEMENTIA DECUBITUS ULCER STAGE 3 DM OBESITY PARKINSON'S LEUKOCYTOSIS ACUTE RENAL INSUFFICIENCY - Plan Plan: F/U CHEST XRAY TODAY CONTINUE IV ANTIBIOTIC MERREM CONTINUE VENT SUPPORT MONITOR H/H CBC/BMP IN AM CONTINUE CURRENT PLAN OF CARE Nutritional Asmnt/Malnutr-PDOC - Dietary Evaluation Malnutrition Findings (Please click <Entered> for more info): Nutritional Asmnt/Malnutrition Start: 09/28/17 11: 43 Text: Status: Complete Freq: Protocol: Document 09/28/17 11:44 CARLOS (Rec: 09/28/17 11:56 CARLOS [email or web address]) Nutritional Asmnt/Malnutrition Patient General Information Nutritional Screening High Risk Consult Diagnosis severe anemia, possible GI bleed, sepsis Pertinent Medical Hx/Surgical Hx DM, parkinson, vent dependent, [employer] shunt, decubitis ulcer, Gtube Subjective Information Consult received for diabetic stage 3 pressure ulcer POA. Pt seen on vent via trach at time of visit. Pt has gtube noted. Per RN Bushra, no nutrition plan at this time. pt is on NPO. Current Diet Order/ Nutrition Support NPO Pertinent Medications vitC, d5-0.45, colace, iron, novolog, novolin, culturelle, cephulac, synthroid, protonix, vancomycin, zinc Pertinent Labs 09/27 Na 135, Cl 96, BUN 53, Glucose 157, POC 76-185 Nutritional Hx/Data Height 5 ft 4 in Height (Calculated Centimeters) 162.6 Current Weight (lbs) 165 lb Weight (Calculated Kilograms) 74.8 Weight (Calculated Grams) 16571.7 [place] Body Weight 120 Body Mass Index (BMI) 28.3 Weight Status Overweight GI Symptoms GI Symptoms None Last BM 09/27 Difficult in: None Usual diet at home Diabetisource AC 50ml/hr x 20hr daily at care facility per chart Skin Integrity/Comment: pressure ulcer to sacrum Estimated Nutritional Goals BEE in Kcals: Using Current wt Calories/Kcals/Kg 27-32 Kcals Calculated 5732-8423 Protein: Using Current wt Protein g/k.2-1.4 Protein Calculated 72-84 Fluid: ml 1620-1920ml (1m/kcal) Nutritional Problem 2. Problem Problem increased nutrition needs ( calorie and protein) Etiology impaired skin integrity Signs/Symptoms: state 3 pressure ulcer 1. Problem Problem altered nutrition related labs Etiology hx of DM Signs/Symptoms: Glucose 157, POC 76-185 Malnutrition Alert Is there a minimum of two criteria No selected? Query Text:Check all the applicable criteria. A minimum of two criteria are recommended for diagnosis of either severe or non-severe malnutrition. Malnutrition Related to Morbid Obesity Malnutrition related to morbid obesity No Intervention/Recommendation Comments 1. Monitor NPO status. 2. If TF needed, recommend Diabetisource AC at 55ml/hr continuous and Arginaid 1pkg daily via Gtube for wound healing. This will provide 1584kcal, 79g protein and 1079ml free water, meeting 100 % of estemated nutritional needs 3. Monitor wt, labs and skin integrity 4. F/U as high risk in 2 days, 6/2 Expected Outcomes/Goals Expected Outcomes/Goals 1. Pt to meet at least 75% of nutritional needs 2. Wt stability, skin integrity to improve, labs to approach WNL.
[2017-10-02] MEDS ORDERED: Probiotic Screen MC PRN (10:07)
[2017-10-02] MEDS ORDERED: Hydrocodone/APAP 5mg/325mg Tab GT PRN (12:14)
--- NOTE | 2017-10-02 12:48 | GI Progress Note ---
Subjective - Review of Systems Service Date: 10/02/17 Subjective: NO overt GI bleeding. Hgb 10 today after transfusion yesterday Objective - Results Result Diagrams: 10/02/17 04:25 10/02/17 04:25 Recent Labs: Laboratory Last Values WBC 9.6 Th/cmm (4.8-10.8) 10/02/17 04:25 RBC 3.88 Mil/cmm (3.80-5.20) 10/02/17 04:25 Hgb 10.6 gm/dL (12-16) L D 10/02/17 04:25 Hct 31.6 % (41.0-60) L D 10/02/17 04:25 MCV 81.5 fl (81-100) 10/02/17 04:25 MCH 27.2 pg (27.0-31.0) 10/02/17 04:25 MCHC Differential 33.4 pg (28.0-36.0) 10/02/17 04:25 RDW 16.3 % (11.5-20.0) 10/02/17 04:25 Plt Count 218 Th/cmm (150-400) 10/02/17 04:25 MPV 7.7 fl 10/02/17 04:25 Neutrophils % 75.3 % (40.0-80.0) 10/02/17 04:25 Lymphocytes % 12.8 % (20.0-50.0) L 10/02/17 04:25 Monocytes % 6.1 % (2.0-10.0) 10/02/17 04:25 Eosinophils % 5.4 % (0.0-5.0) H 10/02/17 04:25 Basophils % 0.4 % (0.0-2.0) 10/02/17 04:25 Neutrophils (Manual) 79 % (40-80) 10/01/17 04:25 Lymphocytes 15 % (20-50) L 10/01/17 04:25 Monocytes 1 % (2-10) L 10/01/17 04:25 Eosinophils 5 % (0-5) 10/01/17 04:25 Hypochromia 1+ 10/01/17 04:25 Platelet Estimate ADEQUATE (NORMAL) 10/01/17 04:25 Polychromasia 1+ 10/01/17 04:25 Microcytosis 1+ 09/29/17 04:35 PT 11.5 SECONDS (9.5-11.5) 09/27/17 11:09 INR 1.10 (0.5-1.4) 09/27/17 11:09 PTT (Actin FS) 24.9 SECONDS (26.0-38.0) L 09/27/17 11:09 Sodium 136 mEq/L (136-145) 10/02/17 04:25 Potassium 3.9 mEq/L (3.5-5.1) 10/02/17 04:25 Chloride 110 mEq/L (98-107) H 10/02/17 04:25 Carbon Dioxide 21.2 mEq/L (21.0-31.0) 10/02/17 04:25 Anion Gap 8.7 (7.0-16.0) 10/02/17 04:25 BUN 17 mg/dL (7-25) 10/02/17 04:25 Creatinine 0.6 mg/dL (0.6-1.2) 10/02/17 04:25 Est GFR ( Amer) TNP 10/02/17 04:25 Est GFR (Non-Af Amer) TNP 10/02/17 04:25 BUN/Creatinine Ratio 28.3 10/02/17 04:25 Glucose 177 mg/dL (70-105) H 10/02/17 04:25 POC Glucose 172 MG/DL (70 - 105) H 09/30/17 17:20 Hemoglobin A1c % 5.0 % (4.0-6.0) 09/29/17 04:35 Whole Bld Lactic Acid 2.21 mmol/L (0.60-1.99) H* 09/27/17 13:10 Calcium 7.9 mg/dL (8.6-10.3) L 10/02/17 04:25 Total Bilirubin 0.4 mg/dL (0.3-1.0) 09/29/17 04:35 AST 22 U/L (13-39) 09/29/17 04:35 ALT 27 U/L (7-52) 09/29/17 04:35 Alkaline Phosphatase 135 U/L (34-104) H 09/29/17 04:35 Creatine Kinase 308 U/L (30-223) H 09/27/17 11:09 CK-MB (CK-2) 10.6 ng/mL (0.6-6.3) H 09/27/17 11:09 Troponin I 0.01 ng/mL (0.01-0.05) 09/27/17 11:09 Total Protein 7.5 gm/dL (6.0-8.3) 09/29/17 04:35 Albumin 3.4 gm/dL (3.7-5.3) L 09/29/17 04:35 Globulin 4.1 gm/dL 09/29/17 04:35 Albumin/Globulin Ratio 0.8 (1.0-1.8) L 09/29/17 04:35 Urine Source MIDSTREAM 09/27/17 11:50 Urine Color YELLOW 09/27/17 11:50 Urine Clarity HAZY (CLEAR) 09/27/17 11:50 Urine pH 6.5 (4.6 - 8.0) 09/27/17 11:50 Ur Specific Welcome 1.010 (1.005-1.030) 09/27/17 11:50 Urine Protein 30 mg/dL (NEGATIVE) H 09/27/17 11:50 Urine Glucose (UA) NEGATIVE mg/dL (NEGATIVE) 09/27/17 11:50 Urine Ketones NEGATIVE mg/dL (NEGATIVE) 09/27/17 11:50 Urine Blood LARGE (NEGATIVE) H 09/27/17 11:50 Urine Nitrate NEGATIVE (NEGATIVE) 09/27/17 11:50 Urine Bilirubin NEGATIVE (NEGATIVE) 09/27/17 11:50 Urine Urobilinogen 0.2 E.U./dL (0.2 - 1.0) 09/27/17 11:50 Ur Leukocyte Esterase MODERATE (NEGATIVE) H 09/27/17 11:50 Urine RBC 25-50 /hpf (0-5) H 09/27/17 11:50 Urine WBC 6-10 /hpf (0-5) H 09/27/17 11:50 Ur Epithelial Cells MODERATE /lpf (FEW) 09/27/17 11:50 Urine Bacteria 3+ /hpf (NONE SEEN) H 09/27/17 11:50 Stool Occult Blood POSITIVE (NEGATIVE) H 09/28/17 15:15 Vancomycin Trough 13.7 ug/mL (5-10) H 09/29/17 08:05 Blood Type A POSITIVE 10/01/17 06:15 Antibody Screen NEGATIVE 10/01/17 06:15 Crossmatch See Detail 10/01/17 06:15 - Physical Exam Vitals and I&O: Vital Signs Temp 99.2 F 10/02/17 12:00 Pulse 64 10/02/17 12:00 Resp 16 10/02/17 12:00 BP 118/50 10/02/17 12:00 Pulse Ox 100 10/02/17 12:00 Intake & Output 10/01/17 10/02/17 10/02/17 18:59 06:59 18:59 Intake Total 3083.35 860 100 Output Total 850 700 Balance 2233.35 160 100 Weight (lbs) 83.064 kg 84.368 kg Intake: Intake, IV Amount 1483.35 100 100 D5-0.45NS 1,000 ml @ 80 1000 mls/hr IV .[id number] [facility] Rx #:[id number] Meropenem 1 gm In Sodium 100 100 100 Chloride 0.9% 100 ml @ 100 mls/hr IV Q12HR [facility] Rx#:[id number] Norepinephrine 4 mg In 133.35 Dextrose 5% 250 ml @ 8 MCG/MIN 30.48 mls/hr IV TITR PRN Rx#:[id number] Vancomycin HCl 1.25 gm In 250 Sodium Chloride 0.9% 250 ml @ 165 mls/hr IV Q24H [facility] Rx#:[id number] Tube Feeding 550 660 Blood Product 500 Other 550 100 Output: Urine 850 700 Other: # Bowel Movements 1 1 Stool Characteristics Formed Soft Green Liquid Weight Source Bedscale Bedscale Active Medications: Current Medications Acetaminophen (Tylenol 650mg/20.3ml Suspension) 650 mg GT Q6HR PRN PRN Reason: Mild Pain or Fever >101 Stop: 11/26/17 13:59 Last Admin: 10/01/17 22:48 Dose: 650 mg Acetaminophen/Hydrocodone Bitart (Tilly 5mg/325mg) 1 tab GT Q6H PRN PRN Reason: Pain (Moderate) Stop: 12/01/17 12:11 Acetylcysteine (Mucomyst 20%) 2 ml HHN Q6HRT [facility] Stop: 11/26/17 18:59 Last Admin: 10/02/17 07:08 Dose: 2 ml Albuterol/Ipratropium (Duoneb Neb) 3 ml HHN Q2HRT PRN PRN Reason: Wheezing Stop: 11/26/17 12:30 Albuterol/Ipratropium (Duoneb Neb) 3 ml HHN Q6HRT [facility] Stop: 11/26/17 12:59 Last Admin: 10/02/17 07:07 Dose: 3 ml Allopurinol (Zyloprim) 200 mg GT DAILY [facility] Stop: 11/27/17 08:59 Last Admin: 10/02/17 08:42 Dose: 200 mg Amlodipine Besylate (Norvasc) 5 mg GT DAILY [facility] Stop: 11/27/17 08:59 Last Admin: 10/02/17 08:43 Dose: Not Given Ascorbic Acid (Vitamin C) 500 mg GT DAILY [facility] Stop: 11/27/17 08:59 Last Admin: 10/02/17 08:41 Dose: 500 mg Benztropine Mesylate (Cogentin) 1 mg GT BID [facility] Stop: 11/26/17 16:59 Last Admin: 10/02/17 08:40 Dose: 1 mg Carbidopa/Levodopa (Sinemet 25mg-100 Mg) 1 tab GT DAILY [facility] Stop: 11/27/17 08:59 Last Admin: 10/02/17 08:39 Dose: 1 tab Chunky Oil/Tongan Balsam/Trypsin (Venelex) 1 appl TP DAILY [facility] Stop: 11/27/17 08:59 Last Admin: 10/02/17 08:44 Dose: 1 appl Chlorhexidine Gluconate (Peridex) 15 ml MM 0800,2000 [facility] Stop: 11/29/17 19:59 Last Admin: 10/02/17 08:42 Dose: 15 ml Clonazepam (Klonopin) 0.5 mg GT BID [facility]; Protocol Stop: 11/26/17 16:59 Last Admin: 10/02/17 08:41 Dose: 0.5 mg Docusate Sodium (Colace) 250 mg GT BID [facility] Stop: 11/26/17 16:59 Last Admin: 10/02/17 08:38 Dose: 250 mg Ferrous Sulfate (Iron) 330 mg GT DAILY [facility] Stop: 11/27/17 08:59 Last Admin: 10/02/17 08:39 Dose: 330 mg Vancomycin HCl 1.25 gm/ Sodium (Chloride) 250 mls @ 165 mls/hr IV Q24H [facility] Stop: 11/27/17 08:59 Last Admin: 10/02/17 09:24 Dose: 165 mls/hr Norepinephrine Bitartrate 4 mg (/ Dextrose) 254 mls @ 30.48 mls/hr IV TITR PRN ; Protocol PRN Reason: BP MAINTENANCE (PER PROTOCOL) Stop: 11/26/17 21:35 Last Titration: 10/01/17 09:30 Dose: 0 mcg/min, 0 mls/hr Meropenem 1 gm/ Sodium (Chloride) 100 mls @ 100 mls/hr IV Q12HR [facility] Stop: 11/29/17 20:59 Last Infusion: 10/02/17 09:30 Dose: Infused Dextrose/Sodium Chloride (D5-0.45ns) 1,000 mls @ 40 mls/hr IV .Q24H [facility] Stop: 12/01/17 12:14 Insulin Aspart (Novolog) 0 units SUBQ Q6HR [facility]; Protocol Stop: 11/29/17 11:59 Last Admin: 10/02/17 12:08 Dose: 2 units Insulin Human Isoph/Insulin Regular (Novolin 70/30) 22 units SUBQ HS [facility]; Protocol Stop: 11/26/17 20:59 Last Admin: 10/01/17 21:40 Dose: 22 units Insulin Human Isoph/Insulin Regular (Novolin 70/30) 45 units SUBQ DAILY [facility]; Protocol Stop: 11/27/17 08:59 Last Admin: 10/02/17 08:34 Dose: 45 units Lactobacillus Rhamnosus (Culturelle 15b) 1 each GT DAILY [facility] Stop: 11/26/17 16:59 Last Admin: 10/02/17 08:40 Dose: 1 each Lactulose (Cephulac) 20 gm GT BID PRN PRN Reason: BOWEL MANAGEMENT Stop: 11/26/17 12:26 Levetiracetam (Keppra) 1,000 mg GT Q12HR [facility] Stop: 11/26/17 20:59 Last Admin: 10/02/17 08:38 Dose: 1,000 mg Levothyroxine Sodium (Synthroid) 0.1 mg GT QDAC [facility] Stop: 11/27/17 07:29 Last Admin: 10/02/17 06:46 Dose: 0.1 mg Lisinopril (Zestril) 20 mg GT DAILY [facility] Stop: 11/27/17 08:59 Last Admin: 10/02/17 08:43 Dose: Not Given Metoclopramide HCl (Reglan) 10 mg GT Q6HR [facility] Stop: 11/26/17 17:59 Last Admin: 10/02/17 12:08 Dose: 10 mg Miscellaneous (Vancomycin Iv Per Pharmacy) 1 ea PRN [facility] Stop: 11/26/17 12:29 Miscellaneous (Probiotic Screen) 1 ea PRN PRN PRN Reason: PROTOCOL Stop: 12/01/17 10:06 Morphine Sulfate (Morphine) 2 mg IVP Q4H PRN PRN Reason: Pain (Severe) Stop: 11/26/17 12:28 Ondansetron HCl (Zofran) 4 mg IV Q8H PRN PRN Reason: Nausea / Vomiting Stop: 11/26/17 12:28 Pantoprazole Sodium (Protonix) 40 mg IVP DAILY [facility] Stop: 11/27/17 09:44 Last Admin: 10/02/17 08:38 Dose: 40 mg Petrolatum (Vaseline Oint) 113 appl TP DAILY [facility] Stop: 11/27/17 08:59 Last Admin: 10/02/17 08:44 Dose: 113 appl Simvastatin (Zocor) 20 mg PO HS [facility]; Protocol Stop: 11/26/17 20:59 Last Admin: 10/01/17 21:32 Dose: 20 mg Sucralfate (Carafate) 1 gm GT QID [facility] Stop: 11/26/17 12:59 Last Admin: 10/02/17 12:08 Dose: 1 gm Zinc Sulfate (Zinc Sulfate) 220 mg GT DAILY [facility] Stop: 11/27/17 08:59 Last Admin: 10/01/17 09:17 Dose: 220 mg Neck: Supple Cardiovascular: Regular rate Abdomen: Bowel sounds, no Tender, no Hepatomegaly, no Splenomegaly, no Distended , no Rebound, no Mass, no Guarding Skin: no Rash - Procedures Procedures: Procedures Procedure Code Date AIRWAYS SURGICAL PROCEDURE 94410 03/03/16 BLOOD TRANSFUSION SERVICE 58572 09/27/17 CHANGE FEEDING DEVICE IN UP INTEST TRACT, COMMUNITY RELATIONS REPRESENTATIVE APPROACH [id number] 12/10/16 CHANGE GASTROSTOMY TUBE 09858 06/06/13 CONTINUOUS INVASIVE MECHANICAL VENTILATION <96 CONSEC HRS 96.71 02/02/13 CONTINUOUS INVASIVE MECHANICAL VENTILATION =/>96 CONSEC HRS 96.72 06/06/13 [place] [address] 03/03/16 IMMUNIZATION ADMIN 69925 03/03/16 INFLUENZA VACCINATION 99.52 02/02/13 INSERT NON-TUNNEL CV CATH 66761 03/03/16 INSERT PICC CATH 72243 02/02/13 INSERTION OF INFUSION DEV INTO SUP VENA CAVA, PERC APPROACH [id number] 03/03/16 INTRODUCTION OF SERUM/TOX/VACCINE INTO MUSCLE, PERC APPROACH [id number] 03/03/16 OTHER GASTROSTOMY 43.19 06/03/10 REPLACE GASTROSTOMY TUBE 97.02 06/06/13 RESPIRATORY VENTILATION, 24-96 CONSECUTIVE HOURS [id number] 09/27/17 RESPIRATORY VENTILATION, GREATER THAN 96 CONSECUTIVE HOURS [id number] 12/10/16 TRANSFUSE NONAUT RED BLOOD CELLS IN PERIPH VEIN, PERC 22162T1 09/27/17 VACCINATION NEC 99.55 02/02/13 VENOUS CATHETERIZATION NEC 38.93 02/02/13 VENT MGMT INPAT INIT DAY 80995 03/03/16 VENT MGMT INPAT SUBQ DAY 65563 03/03/16 Assessment/Plan - Problem List Patient Problems: All Active Problems ABNORMAL LAB RESULTS; HEMOGLOBIN 6.2 (Acute) - Assessment Assessment: # Anemia # Parkinsons dementia # Dysphagia with G tube # Respiratory failure with tracheostomy There is no overt GI bleeding (ie melena, hematemesis, or hematochezia). This may be anemia of chronic disease, nutritional deficiency, or microscopic GI blood loss. Regardless, this would be difficult patient to have undergo a bowel preparation, and as there is no GI bleeding, we will hold off on urgent endoscopy at this time. Plan: - monitor hgb, transfuse to keep hgb > 7 - if there are any signs of overt bleeding (hematemesis, melena, hematochezia), we will reconsider urgent endoscopy - cont tube feeding at goal rate. HOld for residuals > 100cc - management of the pt's dementia, respiratory issues as per primary
[2017-10-03] MEDS: INSULIN ASPART, RECOMBINANT 100 UNITS/ML SUBQ SCH ×4 (00:06→17:04)
[2017-10-03] MEDS: Albuterol/Ipratropium Neb 3 ML AERS HHN SCH ×4 (00:22→18:51)
--- NOTE | 2017-10-03 07:51 | Diagnostic Imaging Report ---
CHEST X-RAY: AP view INDICATION: Pneumonia COMPARISON: 09/30/2017 FINDINGS: Tracheostomy tube is stable. Developing CHF and bilateral infiltrates are seen with bilateral small effusions. Cardiomegaly is noted. IMPRESSION: Developing CHF with multifocal infiltrates and small effusions. Cardiomegaly.
[2017-10-03] MEDS: Levothyroxine 0.1 Mg Tab GT SCH (07:57)
[2017-10-03 08:16] LABS: % BASOPHILS 0.5 % (0.0-2.0); % EOSINOPHILS 5.4 % (0.0-5.0); % LYMPHOCYTES 11.9 % (20.0-50.0); % MONOCYTES 5.5 % (2.0-10.0); % NEUTROPHILS 76.7 % (40.0-80.0); EOSINOPHILE ABSOLUTE 0.5 Th/cmm (0.1-0.4); HEMATOCRIT 30.5 % (41.0-60); HEMOGLOBIN 10.1 gm/dL (12-16); LYMPHOCYTE ABSOLUTE 1.2 Th/cmm (1.5-3.0); MEAN CELL VOLUME 81.7 fl (81-100); MEAN CORPUSCULAR HGB CONC 33.1 pg (28.0-36.0); MEAN PLATELET VOLUME 7.7 fl; MONOCYTE ABSOLUTE 0.6 Th/cmm (0.3-1.0); NEUTROPHILE ABSOLUTE 7.7 Th/cmm (1.8-8.0); PLATELET COUNT 209 Th/cmm (150-400); RED BLOOD COUNT 3.73 Mil/cmm (3.80-5.20); RED CELL DISTRIBUTION WIDTH 16.2 % (11.5-20.0)
[2017-10-03] MEDS: Chlorhexidine Gluconate 0.12% 15mL Mouthwash MM SCH ×2 (08:30→20:56)
[2017-10-03] MEDS: Petrolatum (White) Oint 0.6 Oz Tube TP SCH (08:35)
[2017-10-03 08:40] LABS: ANION GAP 8.8 (7.0-16.0); BUN - UREA NITROGEN 17 mg/dL (7-25); CALCIUM SERUM 7.9 mg/dL (8.6-10.3); CARBON DIOXIDE 22.4 mEq/L (21.0-31.0); CHLORIDE 110 mEq/L (98-107); CREATININE - SERUM 0.5 mg/dL (0.6-1.2); GLUCOSE 167 mg/dL (70-105); POTASSIUM SERUM 4.2 mEq/L (3.5-5.1); SODIUM SERUM 137 mEq/L (136-145)
[2017-10-03] MEDS: Venelex 60gm Tube TP SCH (08:45)
[2017-10-03] MEDS: Docusate Sodium 100 mg/10 mL UD GT SCH ×2 (09:31→16:34)
[2017-10-03] MEDS: Ferrous Sulfate 300 MG/5 ML UDC GT SCH (09:31)
[2017-10-03] MEDS: Multivitamin w/ Minerals Tab GT SCH (09:32)
[2017-10-03] MEDS: Lactobacillus Rhamnosus GG 15 Billion CFU CAP.SPRINK GT SCH (09:32)
[2017-10-03] MEDS: Benztropine 1 MG TAB GT SCH ×2 (09:33→16:34)
[2017-10-03] MEDS: Levetiracetam 500 mg/5mL 5mL UDSyr *for ORAL USE ONLY GT SCH ×2 (09:44→20:57)
[2017-10-03] MEDS: D5-0.45NS 1,000 ML IV SCH (12:10)
[2017-10-03] MEDS: INSULIN 70/30 100 UNITS/ML SUBQ SCH ×2 (12:15→21:20)
--- NOTE | 2017-10-03 13:45 | Internal Medicine Prog Note ---
Internal Medicine Subjective - Subjective Service Date: 10/03/17 Patient is:: awake Patient Complaints of:: congestion Per staff patient has:: tolerating meds Internal Medicine Objective - Results Result Diagrams: 10/03/17 08:00 10/03/17 08:00 Recent Labs: Laboratory Last Values WBC 10.0 Th/cmm (4.8-10.8) 10/03/17 08:00 RBC 3.73 Mil/cmm (3.80-5.20) L 10/03/17 08:00 Hgb 10.1 gm/dL (12-16) L 10/03/17 08:00 Hct 30.5 % (41.0-60) L 10/03/17 08:00 MCV 81.7 fl (81-100) 10/03/17 08:00 MCH 27.0 pg (27.0-31.0) 10/03/17 08:00 MCHC Differential 33.1 pg (28.0-36.0) 10/03/17 08:00 RDW 16.2 % (11.5-20.0) 10/03/17 08:00 Plt Count 209 Th/cmm (150-400) 10/03/17 08:00 MPV 7.7 fl 10/03/17 08:00 Neutrophils % 76.7 % (40.0-80.0) 10/03/17 08:00 Lymphocytes % 11.9 % (20.0-50.0) L 10/03/17 08:00 Monocytes % 5.5 % (2.0-10.0) 10/03/17 08:00 Eosinophils % 5.4 % (0.0-5.0) H 10/03/17 08:00 Basophils % 0.5 % (0.0-2.0) 10/03/17 08:00 Neutrophils (Manual) 79 % (40-80) 10/01/17 04:25 Lymphocytes 15 % (20-50) L 10/01/17 04:25 Monocytes 1 % (2-10) L 10/01/17 04:25 Eosinophils 5 % (0-5) 10/01/17 04:25 Hypochromia 1+ 10/01/17 04:25 Platelet Estimate ADEQUATE (NORMAL) 10/01/17 04:25 Polychromasia 1+ 10/01/17 04:25 Microcytosis 1+ 09/29/17 04:35 PT 11.5 SECONDS (9.5-11.5) 09/27/17 11:09 INR 1.10 (0.5-1.4) 09/27/17 11:09 PTT (Actin FS) 24.9 SECONDS (26.0-38.0) L 09/27/17 11:09 Sodium 137 mEq/L (136-145) 10/03/17 08:00 Potassium 4.2 mEq/L (3.5-5.1) 10/03/17 08:00 Chloride 110 mEq/L (98-107) H 10/03/17 08:00 Carbon Dioxide 22.4 mEq/L (21.0-31.0) 10/03/17 08:00 Anion Gap 8.8 (7.0-16.0) 10/03/17 08:00 BUN 17 mg/dL (7-25) 10/03/17 08:00 Creatinine 0.5 mg/dL (0.6-1.2) L 10/03/17 08:00 Est GFR ( Amer) TNP 10/03/17 08:00 Est GFR (Non-Af Amer) TNP 10/03/17 08:00 BUN/Creatinine Ratio 34.0 10/03/17 08:00 Glucose 167 mg/dL (70-105) H 10/03/17 08:00 POC Glucose 172 MG/DL (70 - 105) H 09/30/17 17:20 Hemoglobin A1c % 5.0 % (4.0-6.0) 09/29/17 04:35 Whole Bld Lactic Acid 2.21 mmol/L (0.60-1.99) H* 09/27/17 13:10 Calcium 7.9 mg/dL (8.6-10.3) L 10/03/17 08:00 Total Bilirubin 0.4 mg/dL (0.3-1.0) 09/29/17 04:35 AST 22 U/L (13-39) 09/29/17 04:35 ALT 27 U/L (7-52) 09/29/17 04:35 Alkaline Phosphatase 135 U/L (34-104) H 09/29/17 04:35 Creatine Kinase 308 U/L (30-223) H 09/27/17 11:09 CK-MB (CK-2) 10.6 ng/mL (0.6-6.3) H 09/27/17 11:09 Troponin I 0.01 ng/mL (0.01-0.05) 09/27/17 11:09 Total Protein 7.5 gm/dL (6.0-8.3) 09/29/17 04:35 Albumin 3.4 gm/dL (3.7-5.3) L 09/29/17 04:35 Globulin 4.1 gm/dL 09/29/17 04:35 Albumin/Globulin Ratio 0.8 (1.0-1.8) L 09/29/17 04:35 Urine Source MIDSTREAM 09/27/17 11:50 Urine Color YELLOW 09/27/17 11:50 Urine Clarity HAZY (CLEAR) 09/27/17 11:50 Urine pH 6.5 (4.6 - 8.0) 09/27/17 11:50 Ur Specific [place] 1.010 (1.005-1.030) 09/27/17 11:50 Urine Protein 30 mg/dL (NEGATIVE) H 09/27/17 11:50 Urine Glucose (UA) NEGATIVE mg/dL (NEGATIVE) 09/27/17 11:50 Urine Ketones NEGATIVE mg/dL (NEGATIVE) 09/27/17 11:50 Urine Blood LARGE (NEGATIVE) H 09/27/17 11:50 Urine Nitrate NEGATIVE (NEGATIVE) 09/27/17 11:50 Urine Bilirubin NEGATIVE (NEGATIVE) 09/27/17 11:50 Urine Urobilinogen 0.2 E.U./dL (0.2 - 1.0) 09/27/17 11:50 Ur Leukocyte Esterase MODERATE (NEGATIVE) H 09/27/17 11:50 Urine RBC 25-50 /hpf (0-5) H 09/27/17 11:50 Urine WBC 6-10 /hpf (0-5) H 09/27/17 11:50 Ur Epithelial Cells MODERATE /lpf (FEW) 09/27/17 11:50 Urine Bacteria 3+ /hpf (NONE SEEN) H 09/27/17 11:50 Stool Occult Blood POSITIVE (NEGATIVE) H 09/28/17 15:15 Vancomycin Trough 16.0 ug/mL (5-10) H 10/03/17 08:00 Blood Type A POSITIVE 10/01/17 06:15 Antibody Screen NEGATIVE 10/01/17 06:15 Crossmatch See Detail 10/01/17 06:15 - Physical Exam Vitals and I&O: Vital Signs Temp 99 F 10/03/17 11:00 Pulse 79 10/03/17 13:33 Resp 16 10/03/17 11:00 BP 125/53 10/03/17 11:00 Pulse Ox 100 10/03/17 13:33 Intake & Output 10/02/17 10/03/17 10/03/17 18:59 06:59 18:59 Intake Total 1400 760 956.667 Output Total 1130 850 Balance 270 -90 956.667 Weight (lbs) 187 lb 6 oz 186 lb Intake: Intake, IV Amount 350 100 956.667 D5-0.45NS 1,000 ml @ 40 956.667 mls/hr IV .Q24H [facility] Rx#: [id number] Meropenem 1 gm In Sodium 100 100 Chloride 0.9% 100 ml @ 100 mls/hr IV Q12HR [facility] Rx#:[id number] Vancomycin HCl 1.25 gm In 250 Sodium Chloride 0.9% 250 ml @ 165 mls/hr IV Q24H [facility] Rx#:[id number] Tube Feeding 550 660 Other 500 Output: Urine 1130 850 Other: # Bowel Movements 0 Stool Characteristics Soft Black Green Weight Source Bedscale Bedscale Active Medications: Current Medications Acetaminophen (Tylenol 650mg/20.3ml Suspension) 650 mg GT Q6HR PRN PRN Reason: Mild Pain or Fever >101 Stop: 11/26/17 13:59 Last Admin: 10/03/17 00:08 Dose: 650 mg Acetaminophen/Hydrocodone Bitart ([place] 5mg/325mg) 1 tab GT Q6H PRN PRN Reason: Pain (Moderate) Stop: 12/01/17 12:11 Acetylcysteine (Mucomyst 20%) 2 ml HHN Q6HRT [facility] Stop: 11/26/17 18:59 Last Admin: 10/03/17 13:31 Dose: 2 ml Albuterol/Ipratropium (Duoneb Neb) 3 ml HHN Q2HRT PRN PRN Reason: Wheezing Stop: 11/26/17 12:30 Albuterol/Ipratropium (Duoneb Neb) 3 ml HHN Q6HRT [facility] Stop: 11/26/17 12:59 Last Admin: 10/03/17 13:31 Dose: 3 ml Allopurinol (Zyloprim) 200 mg GT DAILY [facility] Stop: 11/27/17 08:59 Last Admin: 10/03/17 09:32 Dose: 200 mg Amlodipine Besylate (Norvasc) 5 mg GT DAILY [facility] Stop: 11/27/17 08:59 Last Admin: 10/03/17 09:10 Dose: Not Given Ascorbic Acid (Vitamin C) 500 mg GT DAILY [facility] Stop: 11/27/17 08:59 Last Admin: 10/03/17 09:32 Dose: 500 mg Benztropine Mesylate (Cogentin) 1 mg GT BID [facility] Stop: 11/26/17 16:59 Last Admin: 10/03/17 09:33 Dose: 1 mg Carbidopa/Levodopa (Sinemet 25mg-100 Mg) 1 tab GT DAILY [facility] Stop: 11/27/17 08:59 Last Admin: 10/03/17 09:32 Dose: 1 tab Max Oil/Cymro Balsam/Trypsin (Venelex) 1 appl TP DAILY [facility] Stop: 11/27/17 08:59 Last Admin: 10/03/17 08:45 Dose: 1 appl Chlorhexidine Gluconate (Peridex) 15 ml MM 0800,2000 [facility] Stop: 11/29/17 19:59 Last Admin: 10/03/17 08:30 Dose: 15 ml Clonazepam (Klonopin) 0.5 mg GT BID [facility]; Protocol Stop: 11/26/17 16:59 Last Admin: 10/03/17 09:32 Dose: 0.5 mg Docusate Sodium (Colace) 250 mg GT BID [facility] Stop: 11/26/17 16:59 Last Admin: 10/03/17 09:31 Dose: 250 mg Ferrous Sulfate (Iron) 330 mg GT DAILY [facility] Stop: 11/27/17 08:59 Last Admin: 10/03/17 09:31 Dose: 330 mg Furosemide (Lasix) 20 mg IVP BID [facility] Stop: 12/02/17 16:59 Vancomycin HCl 1.25 gm/ Sodium (Chloride) 250 mls @ 165 mls/hr IV Q24H [facility] Stop: 11/27/17 08:59 Last Admin: 10/03/17 10:59 Dose: 165 mls/hr Norepinephrine Bitartrate 4 mg (/ Dextrose) 254 mls @ 30.48 mls/hr IV TITR PRN ; Protocol PRN Reason: BP MAINTENANCE (PER PROTOCOL) Stop: 11/26/17 21:35 Last Titration: 10/01/17 09:30 Dose: 0 mcg/min, 0 mls/hr Meropenem 1 gm/ Sodium (Chloride) 100 mls @ 100 mls/hr IV Q12HR [facility] Stop: 11/29/17 20:59 Last Admin: 10/03/17 09:33 Dose: 100 mls/hr Insulin Aspart (Novolog) 0 units SUBQ Q6HR [facility]; Protocol Stop: 11/29/17 11:59 Last Admin: 10/03/17 12:14 Dose: 2 units Insulin Human Isoph/Insulin Regular (Novolin 70/30) 22 units SUBQ HS [facility]; Protocol Stop: 11/26/17 20:59 Last Admin: 10/02/17 21:10 Dose: 22 units Insulin Human Isoph/Insulin Regular (Novolin 70/30) 45 units SUBQ DAILY [facility]; Protocol Stop: 11/27/17 08:59 Last Admin: 10/03/17 12:15 Dose: 45 units Lactobacillus Rhamnosus (Culturelle 15b) 1 each GT DAILY [facility] Stop: 11/26/17 16:59 Last Admin: 10/03/17 09:32 Dose: 1 each Lactulose (Cephulac) 20 gm GT BID PRN PRN Reason: BOWEL MANAGEMENT Stop: 11/26/17 12:26 Levetiracetam (Keppra) 1,000 mg GT Q12HR [facility] Stop: 11/26/17 20:59 Last Admin: 10/03/17 09:44 Dose: 1,000 mg Levothyroxine Sodium (Synthroid) 0.1 mg GT QDAC [facility] Stop: 11/27/17 07:29 Last Admin: 10/03/17 07:57 Dose: 0.1 mg Lisinopril (Zestril) 20 mg GT DAILY [facility] Stop: 11/27/17 08:59 Last Admin: 10/03/17 09:15 Dose: Not Given Metoclopramide HCl (Reglan) 10 mg GT Q6HR [facility] Stop: 11/26/17 17:59 Last Admin: 10/03/17 12:10 Dose: 10 mg Miscellaneous (Vancomycin Iv Per Pharmacy) 1 ea MC PRN [facility] Stop: 11/26/17 12:29 Miscellaneous (Probiotic Screen) 1 ea PRN PRN PRN Reason: PROTOCOL Stop: 12/01/17 10:06 Morphine Sulfate (Morphine) 2 mg IVP Q4H PRN PRN Reason: Pain (Severe) Stop: 11/26/17 12:28 Ondansetron HCl (Zofran) 4 mg IV Q8H PRN PRN Reason: Nausea / Vomiting Stop: 11/26/17 12:28 Pantoprazole Sodium (Protonix) 40 mg IVP DAILY [facility] Stop: 11/27/17 09:44 Last Admin: 10/03/17 09:32 Dose: 40 mg Petrolatum (Vaseline Oint) 113 appl TP DAILY [facility] Stop: 11/27/17 08:59 Last Admin: 10/03/17 08:35 Dose: 113 appl Simvastatin (Zocor) 20 mg PO HS [facility]; Protocol Stop: 11/26/17 20:59 Last Admin: 10/02/17 21:00 Dose: 20 mg Sucralfate (Carafate) 1 gm GT QID [facility] Stop: 11/26/17 12:59 Last Admin: 10/03/17 12:10 Dose: 1 gm Zinc Sulfate (Zinc Sulfate) 220 mg GT DAILY [facility] Stop: 11/27/17 08:59 Last Admin: 10/03/17 09:32 Dose: 220 mg General: weak, alert HEENT: NC/AT, PERRLA Neck: Supple, + trach Cardiovascular: RRR Abdomen: soft, non-tender, +GT - Procedures Procedures: Procedures Procedure Code Date AIRWAYS SURGICAL PROCEDURE 39143 03/03/16 BLOOD TRANSFUSION SERVICE 95381 09/27/17 CHANGE FEEDING DEVICE IN UP INTEST TRACT, CLINICAL NUTRITIONIST APPROACH [id number] 12/10/16 CHANGE GASTROSTOMY TUBE 22060 06/06/13 CONTINUOUS INVASIVE MECHANICAL VENTILATION <96 CONSEC HRS 96.71 02/02/13 CONTINUOUS INVASIVE MECHANICAL VENTILATION =/>96 CONSEC HRS 96.72 06/06/13 [place] [address] 03/03/16 IMMUNIZATION ADMIN 34663 03/03/16 INFLUENZA VACCINATION 99.52 02/02/13 INSERT NON-TUNNEL CV CATH 66678 03/03/16 INSERT PICC CATH 22109 02/02/13 INSERTION OF INFUSION DEV INTO SUP VENA CAVA, PERC APPROACH [id number] 03/03/16 INTRODUCTION OF SERUM/TOX/VACCINE INTO MUSCLE, PERC APPROACH [id number] 03/03/16 OTHER GASTROSTOMY 43.19 06/03/10 REPLACE GASTROSTOMY TUBE 97.02 06/06/13 RESPIRATORY VENTILATION, 24-96 CONSECUTIVE HOURS [id number] 09/27/17 RESPIRATORY VENTILATION, GREATER THAN 96 CONSECUTIVE HOURS [id number] 12/10/16 TRANSFUSE NONAUT RED BLOOD CELLS IN PERIPH VEIN, [facility] [id number] 09/27/17 VACCINATION NEC 99.55 02/02/13 VENOUS CATHETERIZATION NEC 38.93 02/02/13 VENT MGMT INPAT INIT DAY 03/03/16 VENT MGMT INPAT SUBQ DAY 03/03/16 Internal Medicine Assmt/Plan - Assessment Assessment: SEPSIS SECONDARY PNA ACUTE UTI, URINE CULTURE +PROTEUS MIRABILIS ESBL ANEMIA-REQUIRING TRANSFUSION POSSIBLE GI BLEED VDRF CHRONIC HYDROCEPHALUS DEMENTIA DECUBITUS ULCER STAGE 3 DM OBESITY PARKINSON'S LEUKOCYTOSIS ACUTE RENAL INSUFFICIENCY - Plan Plan: [place] [facility] TO [facility] CONTINUE IV ANTIBIOTIC [place] CONTINUE VENT SUPPORT MONITOR H/H CBC/BMP IN AM CONTINUE CURRENT PLAN OF CARE Nutritional Asmnt/Malnutr-PDOC - Dietary Evaluation Malnutrition Findings (Please click <Entered> for more info): Nutritional Asmnt/Malnutrition Start: 09/28/17 11: 43 Text: Status: Complete Freq: Protocol: Document 09/28/17 11:44 CARLOS (Rec: 09/28/17 11:56 CARLOS [email or web address]) Nutritional Asmnt/Malnutrition Patient General Information Nutritional Screening High Risk Consult Diagnosis severe anemia, possible GI bleed, sepsis Pertinent Medical Hx/Surgical Hx DM, parkinson, vent dependent, [employer] shunt, decubitis ulcer, Gtube Subjective Information Consult received for diabetic stage 3 pressure ulcer POA. Pt seen on vent via trach at time of visit. Pt has gtube noted. Per NOAH Tomlinson, no nutrition plan at this time. pt is on NPO. Current Diet Order/ Nutrition Support NPO Pertinent Medications vitC, d5-0.45, colace, iron, novolog, novolin, culturelle, cephulac, synthroid, protonix, vancomycin, zinc Pertinent Labs 09/27 Na 135, Cl 96, BUN 53, Glucose 157, POC 76-185 Nutritional Hx/Data Height 5 ft 4 in Height (Calculated Centimeters) 162.6 Current Weight (lbs) 165 lb Weight (Calculated Kilograms) 74.8 Weight (Calculated Grams) 44375.7 [place] Body Weight 120 Body Mass Index (BMI) 28.3 Weight Status Overweight GI Symptoms GI Symptoms None Last BM 09/27 Difficult in: None Usual diet at home Diabetisource AC 50ml/hr x 20hr daily at care facility per chart Skin Integrity/Comment: pressure ulcer to sacrum Estimated Nutritional Goals BEE in Kcals: Using Current wt Calories/Kcals/Kg 27-32 Kcals Calculated 9006-8999 Protein: Using Current wt Protein g/k.2-1.4 Protein Calculated 72-84 Fluid: ml 1620-1920ml (1m/kcal) Nutritional Problem 2. Problem Problem increased nutrition needs ( calorie and protein) Etiology impaired skin integrity Signs/Symptoms: state 3 pressure ulcer 1. Problem Problem altered nutrition related labs Etiology hx of DM Signs/Symptoms: Glucose 157, POC 76-185 Malnutrition Alert Is there a minimum of two criteria No selected? Query Text:Check all the applicable criteria. A minimum of two criteria are recommended for diagnosis of either severe or non-severe malnutrition. Malnutrition Related to Morbid Obesity Malnutrition related to morbid obesity No Intervention/Recommendation Comments 1. Monitor NPO status. 2. If TF needed, recommend Diabetisource AC at 55ml/hr continuous and Arginaid 1pkg daily via Gtube for wound healing. This will provide 1584kcal, 79g protein and 1079ml free water, meeting 100 % of estemated nutritional needs 3. Monitor wt, labs and skin integrity 4. F/U as high risk in 2 days, 6 Expected Outcomes/Goals Expected Outcomes/Goals 1. Pt to meet at least 75% of nutritional needs 2. Wt stability, skin integrity to improve, labs to approach WNL.
[2017-10-04] MEDS: Albuterol/Ipratropium Neb 3 ML AERS HHN SCH ×4 (00:16→18:43)
[2017-10-04] MEDS: INSULIN ASPART, RECOMBINANT 100 UNITS/ML SUBQ SCH ×4 (00:18→18:00)
[2017-10-04 04:42] LABS: % BASOPHILS 0.3 % (0.0-2.0); % EOSINOPHILS 5.4 % (0.0-5.0); % LYMPHOCYTES 13.6 % (20.0-50.0); % MONOCYTES 5.3 % (2.0-10.0); % NEUTROPHILS 75.4 % (40.0-80.0); EOSINOPHILE ABSOLUTE 0.5 Th/cmm (0.1-0.4); HEMATOCRIT 29.4 % (41.0-60); HEMOGLOBIN 9.8 gm/dL (12-16); LYMPHOCYTE ABSOLUTE 1.3 Th/cmm (1.5-3.0); MEAN CELL VOLUME 81.5 fl (81-100); MEAN CORPUSCULAR HEMOGLOBIN 27.1 pg (27.0-31.0); MEAN CORPUSCULAR HGB CONC 33.3 pg (28.0-36.0); MEAN PLATELET VOLUME 7.3 fl; MONOCYTE ABSOLUTE 0.5 Th/cmm (0.3-1.0); NEUTROPHILE ABSOLUTE 7.6 Th/cmm (1.8-8.0); PLATELET COUNT 221 Th/cmm (150-400); RED CELL DISTRIBUTION WIDTH 16.4 % (11.5-20.0); WHITE BLOOD COUNT 9.9 Th/cmm (4.8-10.8)
[2017-10-04 05:10] LABS: ALB/GLOB RATIO 0.8 (1.0-1.8); ALBUMIN 2.8 gm/dL (3.7-5.3); ALKALINE PHOSPHATASE 172 U/L (34-104); ANION GAP 9.6 (7.0-16.0); BILIRUBIN,TOTAL 0.3 mg/dL (0.3-1.0); BUN - UREA NITROGEN 18 mg/dL (7-25); CARBON DIOXIDE 23.6 mEq/L (21.0-31.0); CHLORIDE 109 mEq/L (98-107); CREATININE - SERUM 0.5 mg/dL (0.6-1.2); GLUCOSE 142 mg/dL (70-105); POTASSIUM SERUM 4.2 mEq/L (3.5-5.1); SGOT 51 U/L (13-39); SGPT/ALT 52 U/L (7-52); SODIUM SERUM 138 mEq/L (136-145); TOTAL PROTEIN,SERUM 6.3 gm/dL (6.0-8.3)
[2017-10-04] MEDS: Levothyroxine 0.1 Mg Tab GT SCH (06:52)
[2017-10-04] MEDS: Chlorhexidine Gluconate 0.12% 15mL Mouthwash MM SCH ×2 (08:30→20:38)
[2017-10-04] MEDS: Docusate Sodium 100 mg/10 mL UD GT SCH ×2 (09:00→17:18)
[2017-10-04] MEDS: Venelex 60gm Tube TP SCH (09:00)
[2017-10-04] MEDS: Levetiracetam 500 mg/5mL 5mL UDSyr *for ORAL USE ONLY GT SCH ×2 (09:24→20:37)
[2017-10-04] MEDS: Lactobacillus Rhamnosus GG 15 Billion CFU CAP.SPRINK GT SCH (09:29)
[2017-10-04] MEDS: Multivitamin w/ Minerals Tab GT SCH (09:29)
[2017-10-04] MEDS: Ferrous Sulfate 300 MG/5 ML UDC GT SCH (09:29)
[2017-10-04] MEDS: Benztropine 1 MG TAB GT SCH ×2 (09:29→17:20)
[2017-10-04] MEDS: Petrolatum (White) Oint 0.6 Oz Tube TP SCH (09:32)
[2017-10-04] MEDS: INSULIN 70/30 100 UNITS/ML SUBQ SCH ×2 (13:06→20:46)
--- NOTE | 2017-10-04 15:00 | GI Progress Note ---
Subjective - Review of Systems Service Date: 10/04/17 Subjective: No overnight events, no evidence of GI bleeding Objective - Results Result Diagrams: 10/04/17 04:30 10/04/17 04:30 Recent Labs: Laboratory Last Values WBC 9.9 Th/cmm (4.8-10.8) 10/04/17 04:30 RBC 3.60 Mil/cmm (3.80-5.20) L 10/04/17 04:30 Hgb 9.8 gm/dL (12-16) L 10/04/17 04:30 Hct 29.4 % (41.0-60) L 10/04/17 04:30 MCV 81.5 fl (81-100) 10/04/17 04:30 MCH 27.1 pg (27.0-31.0) 10/04/17 04:30 MCHC Differential 33.3 pg (28.0-36.0) 10/04/17 04:30 RDW 16.4 % (11.5-20.0) 10/04/17 04:30 Plt Count 221 Th/cmm (150-400) 10/04/17 04:30 MPV 7.3 fl 10/04/17 04:30 Neutrophils % 75.4 % (40.0-80.0) 10/04/17 04:30 Lymphocytes % 13.6 % (20.0-50.0) L 10/04/17 04:30 Monocytes % 5.3 % (2.0-10.0) 10/04/17 04:30 Eosinophils % 5.4 % (0.0-5.0) H 10/04/17 04:30 Basophils % 0.3 % (0.0-2.0) 10/04/17 04:30 Neutrophils (Manual) 79 % (40-80) 10/01/17 04:25 Lymphocytes 15 % (20-50) L 10/01/17 04:25 Monocytes 1 % (2-10) L 10/01/17 04:25 Eosinophils 5 % (0-5) 10/01/17 04:25 Hypochromia 1+ 10/01/17 04:25 Platelet Estimate ADEQUATE (NORMAL) 10/01/17 04:25 Polychromasia 1+ 10/01/17 04:25 Microcytosis 1+ 09/29/17 04:35 PT 11.5 SECONDS (9.5-11.5) 09/27/17 11:09 INR 1.10 (0.5-1.4) 09/27/17 11:09 PTT (Actin FS) 24.9 SECONDS (26.0-38.0) L 09/27/17 11:09 Sodium 138 mEq/L (136-145) 10/04/17 04:30 Potassium 4.2 mEq/L (3.5-5.1) 10/04/17 04:30 Chloride 109 mEq/L (98-107) H 10/04/17 04:30 Carbon Dioxide 23.6 mEq/L (21.0-31.0) 10/04/17 04:30 Anion Gap 9.6 (7.0-16.0) 10/04/17 04:30 BUN 18 mg/dL (7-25) 10/04/17 04:30 Creatinine 0.5 mg/dL (0.6-1.2) L 10/04/17 04:30 Est GFR ( Amer) TNP 10/04/17 04:30 Est GFR (Non-Af Amer) TNP 10/04/17 04:30 BUN/Creatinine Ratio 36.0 10/04/17 04:30 Glucose 142 mg/dL (70-105) H 10/04/17 04:30 POC Glucose 160 MG/DL (70 - 105) H 10/04/17 12:57 Hemoglobin A1c % 5.0 % (4.0-6.0) 09/29/17 04:35 Whole Bld Lactic Acid 2.21 mmol/L (0.60-1.99) H* 09/27/17 13:10 Calcium 8.0 mg/dL (8.6-10.3) L 10/04/17 04:30 Total Bilirubin 0.3 mg/dL (0.3-1.0) 10/04/17 04:30 AST 51 U/L (13-39) H 10/04/17 04:30 ALT 52 U/L (7-52) 10/04/17 04:30 Alkaline Phosphatase 172 U/L (34-104) H 10/04/17 04:30 Creatine Kinase 308 U/L (30-223) H 09/27/17 11:09 CK-MB (CK-2) 10.6 ng/mL (0.6-6.3) H 09/27/17 11:09 Troponin I 0.01 ng/mL (0.01-0.05) 09/27/17 11:09 B-Natriuretic Peptide 112.0 pg/mL (5.0-100.0) H 10/04/17 04:30 Total Protein 6.3 gm/dL (6.0-8.3) 10/04/17 04:30 Albumin 2.8 gm/dL (3.7-5.3) L 10/04/17 04:30 Globulin 3.5 gm/dL 10/04/17 04:30 Albumin/Globulin Ratio 0.8 (1.0-1.8) L 10/04/17 04:30 Urine Source MIDSTREAM 09/27/17 11:50 Urine Color YELLOW 09/27/17 11:50 Urine Clarity HAZY (CLEAR) 09/27/17 11:50 Urine pH 6.5 (4.6 - 8.0) 09/27/17 11:50 Ur Specific [place] 1.010 (1.005-1.030) 09/27/17 11:50 Urine Protein 30 mg/dL (NEGATIVE) H 09/27/17 11:50 Urine Glucose (UA) NEGATIVE mg/dL (NEGATIVE) 09/27/17 11:50 Urine Ketones NEGATIVE mg/dL (NEGATIVE) 09/27/17 11:50 Urine Blood LARGE (NEGATIVE) H 09/27/17 11:50 Urine Nitrate NEGATIVE (NEGATIVE) 09/27/17 11:50 Urine Bilirubin NEGATIVE (NEGATIVE) 09/27/17 11:50 Urine Urobilinogen 0.2 E.U./dL (0.2 - 1.0) 09/27/17 11:50 Ur Leukocyte Esterase MODERATE (NEGATIVE) H 09/27/17 11:50 Urine RBC 25-50 /hpf (0-5) H 09/27/17 11:50 Urine WBC 6-10 /hpf (0-5) H 09/27/17 11:50 Ur Epithelial Cells MODERATE /lpf (FEW) 09/27/17 11:50 Urine Bacteria 3+ /hpf (NONE SEEN) H 09/27/17 11:50 Stool Occult Blood POSITIVE (NEGATIVE) H 09/28/17 15:15 Vancomycin Trough 16.0 ug/mL (5-10) H 10/03/17 08:00 Blood Type A POSITIVE 10/01/17 06:15 Antibody Screen NEGATIVE 10/01/17 06:15 Crossmatch See Detail 10/01/17 06:15 - Physical Exam Vitals and I&O: Vital Signs Temp 97.6 F 10/04/17 12:00 Pulse 67 10/04/17 14:06 Resp 18 10/04/17 13:00 BP 137/80 10/04/17 13:00 Pulse Ox 100 10/04/17 14:06 Intake & Output 10/03/17 10/04/17 10/04/17 18:59 06:59 18:59 Intake Total 2306.207 180 7356 Output Total 1350 1200 Balance 956.667 100 -200 Weight (lbs) 841.867 kg 85.457 kg Intake: Intake, IV Amount 1306.667 100 100 D5-0.45NS 1,000 ml @ 40 956.667 mls/hr IV .Q24H [facility] Rx#: [id number] Meropenem 1 gm In Sodium 100 100 100 Chloride 0.9% 100 ml @ 100 mls/hr IV Q12HR [facility] Rx#:[id number] Vancomycin HCl 1.25 gm In 250 Sodium Chloride 0.9% 250 ml @ 165 mls/hr IV Q24H [facility] Rx#:[id number] Tube Feeding 550 660 Other 450 240 Output: Urine 1350 1200 Other: # Bowel Movements 0 2 Stool Characteristics Soft Soft Black Formed Green Green Weight Source Bedscale Bedscale Active Medications: Current Medications Acetaminophen (Tylenol 650mg/20.3ml Suspension) 650 mg GT Q6HR PRN PRN Reason: Mild Pain or Fever >101 Stop: 11/26/17 13:59 Last Admin: 10/03/17 17:53 Dose: 650 mg Acetaminophen/Hydrocodone Bitart ([place] 5mg/325mg) 1 tab GT Q6H PRN PRN Reason: Pain (Moderate) Stop: 12/01/17 12:11 Acetylcysteine (Mucomyst 20%) 2 ml HHN Q6HRT [facility] Stop: 11/26/17 18:59 Last Admin: 10/04/17 07:59 Dose: 2 ml Albuterol/Ipratropium (Duoneb Neb) 3 ml HHN Q2HRT PRN PRN Reason: Wheezing Stop: 11/26/17 12:30 Albuterol/Ipratropium (Duoneb Neb) 3 ml HHN Q6HRT [facility] Stop: 11/26/17 12:59 Last Admin: 10/04/17 14:05 Dose: 3 ml Allopurinol (Zyloprim) 200 mg GT DAILY [facility] Stop: 11/27/17 08:59 Last Admin: 10/04/17 09:28 Dose: 200 mg Amlodipine Besylate (Norvasc) 5 mg GT DAILY [facility] Stop: 11/27/17 08:59 Last Admin: 10/04/17 09:29 Dose: 5 mg Ascorbic Acid (Vitamin C) 500 mg GT DAILY [facility] Stop: 11/27/17 08:59 Last Admin: 10/04/17 09:29 Dose: 500 mg Benztropine Mesylate (Cogentin) 1 mg GT BID [facility] Stop: 11/26/17 16:59 Last Admin: 10/04/17 09:29 Dose: 1 mg Carbidopa/Levodopa (Sinemet 25mg-100 Mg) 1 tab GT DAILY [facility] Stop: 11/27/17 08:59 Last Admin: 10/04/17 09:29 Dose: 1 tab [place] Oil/Chinese Balsam/Trypsin (Venelex) 1 appl TP DAILY [facility] Stop: 11/27/17 08:59 Last Admin: 10/03/17 08:45 Dose: 1 appl Chlorhexidine Gluconate (Peridex) 15 ml MM 0800,2000 [facility] Stop: 11/29/17 19:59 Last Admin: 10/04/17 08:30 Dose: 15 ml Clonazepam (Klonopin) 0.5 mg GT BID [facility]; Protocol Stop: 11/26/17 16:59 Last Admin: 10/03/17 16:34 Dose: 0.5 mg Docusate Sodium (Colace) 250 mg GT BID [facility] Stop: 11/26/17 16:59 Last Admin: 10/03/17 16:34 Dose: 250 mg Ferrous Sulfate (Iron) 330 mg GT DAILY [facility] Stop: 11/27/17 08:59 Last Admin: 10/04/17 09:29 Dose: 330 mg Furosemide (Lasix) 20 mg IVP BID [facility] Stop: 12/02/17 16:59 Last Admin: 06/05/18 16:35 Dose: 20 mg Vancomycin HCl 1.25 gm/ Sodium (Chloride) 250 mls @ 165 mls/hr IV Q24H [facility] Stop: 11/27/17 08:59 Last Admin: 10/04/17 10:24 Dose: 165 mls/hr Norepinephrine Bitartrate 4 mg (/ Dextrose) 254 mls @ 30.48 mls/hr IV TITR PRN ; Protocol PRN Reason: BP MAINTENANCE (PER PROTOCOL) Stop: 11/26/17 21:35 Last Titration: 10/01/17 09:30 Dose: 0 mcg/min, 0 mls/hr Meropenem 1 gm/ Sodium (Chloride) 100 mls @ 100 mls/hr IV Q12HR [facility] Stop: 11/29/17 20:59 Last Infusion: 10/04/17 11:11 Dose: Infused Insulin Aspart (Novolog) 0 units SUBQ Q6HR [facility]; Protocol Stop: 11/29/17 11:59 Last Admin: 10/04/17 13:02 Dose: 2 units Insulin Human Isoph/Insulin Regular (Novolin 70/30) 22 units SUBQ HS [facility]; Protocol Stop: 11/26/17 20:59 Last Admin: 10/03/17 21:20 Dose: 22 units Insulin Human Isoph/Insulin Regular (Novolin 70/30) 45 units SUBQ DAILY [facility]; Protocol Stop: 11/27/17 08:59 Last Admin: 10/04/17 13:06 Dose: Not Given Lactobacillus Rhamnosus (Culturelle 15b) 1 each GT DAILY [facility] Stop: 11/26/17 16:59 Last Admin: 10/04/17 09:29 Dose: 1 each Lactulose (Cephulac) 20 gm GT BID PRN PRN Reason: BOWEL MANAGEMENT Stop: 11/26/17 12:26 Levetiracetam (Keppra) 1,000 mg GT Q12HR [facility] Stop: 11/26/17 20:59 Last Admin: 10/04/17 09:24 Dose: 1,000 mg Levothyroxine Sodium (Synthroid) 0.1 mg GT QDAC [facility] Stop: 11/27/17 07:29 Last Admin: 10/04/17 06:52 Dose: 0.1 mg Lisinopril (Zestril) 20 mg GT DAILY [facility] Stop: 11/27/17 08:59 Last Admin: 10/04/17 09:33 Dose: 20 mg Metoclopramide HCl (Reglan) 10 mg GT Q6HR [facility] Stop: 11/26/17 17:59 Last Admin: 10/04/17 13:04 Dose: 10 mg Miscellaneous (Vancomycin Iv Per Pharmacy) 1 ea MC PRN [facility] Stop: 11/26/17 12:29 Miscellaneous (Probiotic Screen) 1 ea PRN PRN PRN Reason: PROTOCOL Stop: 12/01/17 10:06 Morphine Sulfate (Morphine) 2 mg IVP Q4H PRN PRN Reason: Pain (Severe) Stop: 11/26/17 12:28 Ondansetron HCl (Zofran) 4 mg IV Q8H PRN PRN Reason: Nausea / Vomiting Stop: 11/26/17 12:28 Pantoprazole Sodium (Protonix) 40 mg IVP DAILY [facility] Stop: 11/27/17 09:44 Last Admin: 10/04/17 09:24 Dose: 40 mg Petrolatum (Vaseline Oint) 113 appl TP DAILY [facility] Stop: 11/27/17 08:59 Last Admin: 10/04/17 09:32 Dose: 113 appl Simvastatin (Zocor) 20 mg PO HS [facility]; Protocol Stop: 11/26/17 20:59 Last Admin: 10/03/17 20:57 Dose: 20 mg Sucralfate (Carafate) 1 gm GT QID [facility] Stop: 11/26/17 12:59 Last Admin: 10/04/17 13:04 Dose: 1 gm Zinc Sulfate (Zinc Sulfate) 220 mg GT DAILY [facility] Stop: 11/27/17 08:59 Last Admin: 10/03/17 09:32 Dose: 220 mg Neck: Supple Cardiovascular: Regular rate Abdomen: Bowel sounds, no Tender, no Hepatomegaly, no Splenomegaly, no Distended , no Rebound, no Mass, no Guarding Skin: no Rash - Procedures Procedures: Procedures Procedure Code Date AIRWAYS SURGICAL PROCEDURE 94189 03/03/16 BLOOD TRANSFUSION SERVICE 94038 09/27/17 CHANGE FEEDING DEVICE IN UP INTEST TRACT, EVP SALES APPROACH [id number] 12/10/16 CHANGE GASTROSTOMY TUBE 94450 06/06/13 CONTINUOUS INVASIVE MECHANICAL VENTILATION <96 CONSEC HRS 96.71 02/02/13 CONTINUOUS INVASIVE MECHANICAL VENTILATION =/>96 CONSEC HRS 96.72 06/06/13 [place] [address] 03/03/16 IMMUNIZATION ADMIN 04966 03/03/16 INFLUENZA VACCINATION 99.52 02/02/13 INSERT NON-TUNNEL CV CATH 92737 03/03/16 INSERT PICC CATH 54704 02/02/13 INSERTION OF INFUSION DEV INTO SUP VENA CAVA, PERC APPROACH [id number] 03/03/16 INTRODUCTION OF SERUM/TOX/VACCINE INTO MUSCLE, PERC APPROACH [id number] 03/03/16 OTHER GASTROSTOMY 43.19 06/03/10 REPLACE GASTROSTOMY TUBE 97.02 06/06/13 RESPIRATORY VENTILATION, 24-96 CONSECUTIVE HOURS [id number] 09/27/17 RESPIRATORY VENTILATION, GREATER THAN 96 CONSECUTIVE HOURS [id number] 12/10/16 TRANSFUSE NONAUT RED BLOOD CELLS IN PERIPH VEIN, PERC [id number] 09/27/17 VACCINATION NEC 99.55 02/02/13 VENOUS CATHETERIZATION NEC 38.93 02/02/13 VENT MGMT INPAT INIT DAY 01149 03/03/16 VENT MGMT INPAT SUBQ DAY 08305 03/03/16 Assessment/Plan - Problem List Patient Problems: All Active Problems ABNORMAL LAB RESULTS; HEMOGLOBIN 6.2 (Acute) - Assessment Assessment: # Anemia # Parkinsons dementia # Dysphagia with G tube # Respiratory failure with tracheostomy There is no overt GI bleeding (ie melena, hematemesis, or hematochezia). This may be anemia of chronic disease, nutritional deficiency, or microscopic GI blood loss. Regardless, this would be difficult patient to have undergo a bowel preparation, and as there is no GI bleeding, we will hold off on urgent endoscopy at this time. Plan: - monitor hgb, transfuse to keep hgb > 7 - if there are any signs of overt bleeding (hematemesis, melena, hematochezia), we will reconsider urgent endoscopy - cont tube feeding at goal rate. HOld for residuals > 100cc - management of the pt's dementia, respiratory issues as per primary
--- NOTE | 2017-10-04 15:38 | Internal Medicine Prog Note ---
Internal Medicine Subjective - Subjective Service Date: 10/04/17 Patient seen and examined:: with staff Patient is:: awake Patient Complaints of:: congestion Per staff patient has:: tolerating meds Internal Medicine Objective - Results Result Diagrams: 10/04/17 04:30 10/04/17 04:30 Recent Labs: Laboratory Last Values WBC 9.9 Th/cmm (4.8-10.8) 10/04/17 04:30 RBC 3.60 Mil/cmm (3.80-5.20) L 10/04/17 04:30 Hgb 9.8 gm/dL (12-16) L 10/04/17 04:30 Hct 29.4 % (41.0-60) L 10/04/17 04:30 MCV 81.5 fl (81-100) 10/04/17 04:30 MCH 27.1 pg (27.0-31.0) 10/04/17 04:30 MCHC Differential 33.3 pg (28.0-36.0) 10/04/17 04:30 RDW 16.4 % (11.5-20.0) 10/04/17 04:30 Plt Count 221 Th/cmm (150-400) 10/04/17 04:30 MPV 7.3 fl 10/04/17 04:30 Neutrophils % 75.4 % (40.0-80.0) 10/04/17 04:30 Lymphocytes % 13.6 % (20.0-50.0) L 10/04/17 04:30 Monocytes % 5.3 % (2.0-10.0) 10/04/17 04:30 Eosinophils % 5.4 % (0.0-5.0) H 10/04/17 04:30 Basophils % 0.3 % (0.0-2.0) 10/04/17 04:30 Neutrophils (Manual) 79 % (40-80) 10/01/17 04:25 Lymphocytes 15 % (20-50) L 10/01/17 04:25 Monocytes 1 % (2-10) L 10/01/17 04:25 Eosinophils 5 % (0-5) 10/01/17 04:25 Hypochromia 1+ 10/01/17 04:25 Platelet Estimate ADEQUATE (NORMAL) 10/01/17 04:25 Polychromasia 1+ 10/01/17 04:25 Microcytosis 1+ 09/29/17 04:35 PT 11.5 SECONDS (9.5-11.5) 09/27/17 11:09 INR 1.10 (0.5-1.4) 09/27/17 11:09 PTT (Actin FS) 24.9 SECONDS (26.0-38.0) L 09/27/17 11:09 Sodium 138 mEq/L (136-145) 10/04/17 04:30 Potassium 4.2 mEq/L (3.5-5.1) 10/04/17 04:30 Chloride 109 mEq/L (98-107) H 10/04/17 04:30 Carbon Dioxide 23.6 mEq/L (21.0-31.0) 10/04/17 04:30 Anion Gap 9.6 (7.0-16.0) 10/04/17 04:30 BUN 18 mg/dL (7-25) 10/04/17 04:30 Creatinine 0.5 mg/dL (0.6-1.2) L 10/04/17 04:30 Est GFR ( Amer) TNP 10/04/17 04:30 Est GFR (Non-Af Amer) TNP 10/04/17 04:30 BUN/Creatinine Ratio 36.0 10/04/17 04:30 Glucose 142 mg/dL (70-105) H 10/04/17 04:30 POC Glucose 160 MG/DL (70 - 105) H 10/04/17 12:57 Hemoglobin A1c % 5.0 % (4.0-6.0) 09/29/17 04:35 Whole Bld Lactic Acid 2.21 mmol/L (0.60-1.99) H* 09/27/17 13:10 Calcium 8.0 mg/dL (8.6-10.3) L 10/04/17 04:30 Total Bilirubin 0.3 mg/dL (0.3-1.0) 10/04/17 04:30 AST 51 U/L (13-39) H 10/04/17 04:30 ALT 52 U/L (7-52) 10/04/17 04:30 Alkaline Phosphatase 172 U/L (34-104) H 10/04/17 04:30 Creatine Kinase 308 U/L (30-223) H 09/27/17 11:09 CK-MB (CK-2) 10.6 ng/mL (0.6-6.3) H 09/27/17 11:09 Troponin I 0.01 ng/mL (0.01-0.05) 09/27/17 11:09 B-Natriuretic Peptide 112.0 pg/mL (5.0-100.0) H 10/04/17 04:30 Total Protein 6.3 gm/dL (6.0-8.3) 10/04/17 04:30 Albumin 2.8 gm/dL (3.7-5.3) L 10/04/17 04:30 Globulin 3.5 gm/dL 10/04/17 04:30 Albumin/Globulin Ratio 0.8 (1.0-1.8) L 10/04/17 04:30 Urine Source MIDSTREAM 09/27/17 11:50 Urine Color YELLOW 09/27/17 11:50 Urine Clarity HAZY (CLEAR) 09/27/17 11:50 Urine pH 6.5 (4.6 - 8.0) 09/27/17 11:50 Ur Specific [place] 1.010 (1.005-1.030) 09/27/17 11:50 Urine Protein 30 mg/dL (NEGATIVE) H 09/27/17 11:50 Urine Glucose (UA) NEGATIVE mg/dL (NEGATIVE) 09/27/17 11:50 Urine Ketones NEGATIVE mg/dL (NEGATIVE) 09/27/17 11:50 Urine Blood LARGE (NEGATIVE) H 09/27/17 11:50 Urine Nitrate NEGATIVE (NEGATIVE) 09/27/17 11:50 Urine Bilirubin NEGATIVE (NEGATIVE) 09/27/17 11:50 Urine Urobilinogen 0.2 E.U./dL (0.2 - 1.0) 09/27/17 11:50 Ur Leukocyte Esterase MODERATE (NEGATIVE) H 09/27/17 11:50 Urine RBC 25-50 /hpf (0-5) H 09/27/17 11:50 Urine WBC 6-10 /hpf (0-5) H 09/27/17 11:50 Ur Epithelial Cells MODERATE /lpf (FEW) 09/27/17 11:50 Urine Bacteria 3+ /hpf (NONE SEEN) H 09/27/17 11:50 Stool Occult Blood POSITIVE (NEGATIVE) H 09/28/17 15:15 Vancomycin Trough 16.0 ug/mL (5-10) H 10/03/17 08:00 Blood Type A POSITIVE 10/01/17 06:15 Antibody Screen NEGATIVE 10/01/17 06:15 Crossmatch See Detail 10/01/17 06:15 - Physical Exam Vitals and I&O: Vital Signs Temp 97.6 F 10/04/17 12:00 Pulse 67 10/04/17 14:06 Resp 18 10/04/17 13:00 BP 137/80 10/04/17 13:00 Pulse Ox 100 10/04/17 14:06 Intake & Output 10/03/17 10/04/17 10/04/17 18:59 06:59 18:59 Intake Total 2306.166 834 3926 Output Total 1350 1200 Balance 956.667 100 50 Weight (lbs) 1856 lb 188 lb 6.4 oz Intake: Intake, IV Amount 1306.667 100 350 D5-0.45NS 1,000 ml @ 40 956.667 mls/hr IV .Q24H [facility] Rx#: [id number] Meropenem 1 gm In Sodium 100 100 100 Chloride 0.9% 100 ml @ 100 mls/hr IV Q12HR [facility] Rx#:[id number] Vancomycin HCl 1.25 gm In 250 250 Sodium Chloride 0.9% 250 ml @ 165 mls/hr IV Q24H [facility] Rx#:[id number] Tube Feeding 550 660 Other 450 240 Output: Urine 1350 1200 Other: # Bowel Movements 0 2 Stool Characteristics Soft Soft Black Formed Green Green Weight Source Bedscale Bedscale Active Medications: Current Medications Acetaminophen (Tylenol 650mg/20.3ml Suspension) 650 mg GT Q6HR PRN PRN Reason: Mild Pain or Fever >101 Stop: 11/26/17 13:59 Last Admin: 10/03/17 17:53 Dose: 650 mg Acetaminophen/Hydrocodone Bitart ([place] 5mg/325mg) 1 tab GT Q6H PRN PRN Reason: Pain (Moderate) Stop: 12/01/17 12:11 Acetylcysteine (Mucomyst 20%) 2 ml HHN Q6HRT [facility] Stop: 11/26/17 18:59 Last Admin: 10/04/17 07:59 Dose: 2 ml Albuterol/Ipratropium (Duoneb Neb) 3 ml HHN Q2HRT PRN PRN Reason: Wheezing Stop: 11/26/17 12:30 Albuterol/Ipratropium (Duoneb Neb) 3 ml HHN Q6HRT [facility] Stop: 11/26/17 12:59 Last Admin: 10/04/17 14:05 Dose: 3 ml Allopurinol (Zyloprim) 200 mg GT DAILY [facility] Stop: 11/27/17 08:59 Last Admin: 10/04/17 09:28 Dose: 200 mg Amlodipine Besylate (Norvasc) 5 mg GT DAILY [facility] Stop: 11/27/17 08:59 Last Admin: 10/04/17 09:29 Dose: 5 mg Ascorbic Acid (Vitamin C) 500 mg GT DAILY [facility] Stop: 11/27/17 08:59 Last Admin: 10/04/17 09:29 Dose: 500 mg Benztropine Mesylate (Cogentin) 1 mg GT BID [facility] Stop: 11/26/17 16:59 Last Admin: 10/04/17 09:29 Dose: 1 mg Carbidopa/Levodopa (Sinemet 25mg-100 Mg) 1 tab GT DAILY [facility] Stop: 11/27/17 08:59 Last Admin: 10/04/17 09:29 Dose: 1 tab [place] Oil/[place] Balsam/Trypsin (Venelex) 1 appl TP DAILY [facility] Stop: 11/27/17 08:59 Last Admin: 10/03/17 08:45 Dose: 1 appl Chlorhexidine Gluconate (Peridex) 15 ml MM 0800,2000 [facility] Stop: 11/29/17 19:59 Last Admin: 10/04/17 08:30 Dose: 15 ml Clonazepam (Klonopin) 0.5 mg GT BID [facility]; Protocol Stop: 11/26/17 16:59 Last Admin: 10/03/17 16:34 Dose: 0.5 mg Docusate Sodium (Colace) 250 mg GT BID [facility] Stop: 11/26/17 16:59 Last Admin: 10/03/17 16:34 Dose: 250 mg Ferrous Sulfate (Iron) 330 mg GT DAILY [facility] Stop: 11/27/17 08:59 Last Admin: 10/04/17 09:29 Dose: 330 mg Furosemide (Lasix) 20 mg IVP BID [facility] Stop: 12/02/17 16:59 Last Admin: 10/03/17 16:35 Dose: 20 mg Vancomycin HCl 1.25 gm/ Sodium (Chloride) 250 mls @ 165 mls/hr IV Q24H [facility] Stop: 11/27/17 08:59 Last Infusion: 10/04/17 15:32 Dose: Infused Norepinephrine Bitartrate 4 mg (/ Dextrose) 254 mls @ 30.48 mls/hr IV TITR PRN ; Protocol PRN Reason: BP MAINTENANCE (PER PROTOCOL) Stop: 11/26/17 21:35 Last Titration: 10/01/17 09:30 Dose: 0 mcg/min, 0 mls/hr Meropenem 1 gm/ Sodium (Chloride) 100 mls @ 100 mls/hr IV Q12HR [facility] Stop: 11/29/17 20:59 Last Infusion: 10/04/17 11:11 Dose: Infused Insulin Aspart (Novolog) 0 units SUBQ Q6HR [facility]; Protocol Stop: 11/29/17 11:59 Last Admin: 10/04/17 13:02 Dose: 2 units Insulin Human Isoph/Insulin Regular (Novolin 70/30) 22 units SUBQ HS [facility]; Protocol Stop: 11/26/17 20:59 Last Admin: 10/03/17 21:20 Dose: 22 units Insulin Human Isoph/Insulin Regular (Novolin 70/30) 45 units SUBQ DAILY [facility]; Protocol Stop: 11/27/17 08:59 Last Admin: 10/04/17 13:06 Dose: Not Given Lactobacillus Rhamnosus (Culturelle 15b) 1 each GT DAILY [facility] Stop: 11/26/17 16:59 Last Admin: 10/04/17 09:29 Dose: 1 each Lactulose (Cephulac) 20 gm GT BID PRN PRN Reason: BOWEL MANAGEMENT Stop: 11/26/17 12:26 Levetiracetam (Keppra) 1,000 mg GT Q12HR [facility] Stop: 11/26/17 20:59 Last Admin: 10/04/17 09:24 Dose: 1,000 mg Levothyroxine Sodium (Synthroid) 0.1 mg GT QDAC [facility] Stop: 11/27/17 07:29 Last Admin: 10/04/17 06:52 Dose: 0.1 mg Lisinopril (Zestril) 20 mg GT DAILY [facility] Stop: 11/27/17 08:59 Last Admin: 10/04/17 09:33 Dose: 20 mg Metoclopramide HCl (Reglan) 10 mg GT Q6HR [facility] Stop: 11/26/17 17:59 Last Admin: 10/04/17 13:04 Dose: 10 mg Miscellaneous (Vancomycin Iv Per Pharmacy) 1 ea PRN [facility] Stop: 11/26/17 12:29 Miscellaneous (Probiotic Screen) 1 ea PRN PRN PRN Reason: PROTOCOL Stop: 12/01/17 10:06 Morphine Sulfate (Morphine) 2 mg IVP Q4H PRN PRN Reason: Pain (Severe) Stop: 11/26/17 12:28 Ondansetron HCl (Zofran) 4 mg IV Q8H PRN PRN Reason: Nausea / Vomiting Stop: 11/26/17 12:28 Pantoprazole Sodium (Protonix) 40 mg IVP DAILY [facility] Stop: 11/27/17 09:44 Last Admin: 10/04/17 09:24 Dose: 40 mg Petrolatum (Vaseline Oint) 113 appl TP DAILY [facility] Stop: 11/27/17 08:59 Last Admin: 10/04/17 09:32 Dose: 113 appl Simvastatin (Zocor) 20 mg PO HS [facility]; Protocol Stop: 11/26/17 20:59 Last Admin: 10/03/17 20:57 Dose: 20 mg Sucralfate (Carafate) 1 gm GT QID [facility] Stop: 11/26/17 12:59 Last Admin: 10/04/17 13:04 Dose: 1 gm Zinc Sulfate (Zinc Sulfate) 220 mg GT DAILY [facility] Stop: 11/27/17 08:59 Last Admin: 10/03/17 09:32 Dose: 220 mg General: weak, alert HEENT: NC/AT, PERRLA Neck: Supple, + trach Cardiovascular: RRR Abdomen: soft, non-tender, +GT - Procedures Procedures: Procedures Procedure Code Date AIRWAYS SURGICAL PROCEDURE 33761 03/03/16 BLOOD TRANSFUSION SERVICE 30338 09/27/17 CHANGE FEEDING DEVICE IN UP INTEST TRACT, CURRICULUM SPECIALIST APPROACH [id number] 12/10/16 CHANGE GASTROSTOMY TUBE 25700 06/06/13 CONTINUOUS INVASIVE MECHANICAL VENTILATION <96 CONSEC HRS 96.71 02/02/13 CONTINUOUS INVASIVE MECHANICAL VENTILATION =/>96 CONSEC HRS 96.72 06/06/13 [place] [address] 03/03/16 IMMUNIZATION ADMIN 37739 03/03/16 INFLUENZA VACCINATION 99.52 02/02/13 INSERT NON-TUNNEL CV CATH 48360 03/03/16 INSERT PICC CATH 60668 02/02/13 INSERTION OF INFUSION DEV INTO SUP VENA CAVA, PERC APPROACH [id number] 03/03/16 INTRODUCTION OF SERUM/TOX/VACCINE INTO MUSCLE, PERC APPROACH [id number] 03/03/16 OTHER GASTROSTOMY 43.19 06/03/10 REPLACE GASTROSTOMY TUBE 97.02 06/06/13 RESPIRATORY VENTILATION, 24-96 CONSECUTIVE HOURS [id number] 09/27/17 RESPIRATORY VENTILATION, GREATER THAN 96 CONSECUTIVE HOURS [id number] 12/10/16 TRANSFUSE NONAUT RED BLOOD CELLS IN PERIPH VEIN, PERC [id number] 09/27/17 VACCINATION NEC 99.55 02/02/13 VENOUS CATHETERIZATION NEC 38.93 02/02/13 VENT MGMT INPAT INIT DAY 45833 03/03/16 VENT MGMT INPAT SUBQ DAY 62830 03/03/16 Internal Medicine Assmt/Plan - Assessment Assessment: SEPSIS SECONDARY PNA ACUTE UTI, URINE CULTURE +PROTEUS MIRABILIS ESBL ANEMIA-REQUIRING TRANSFUSION POSSIBLE GI BLEED VDRF CHRONIC HYDROCEPHALUS DEMENTIA DECUBITUS ULCER STAGE 3 DM OBESITY PARKINSON'S LEUKOCYTOSIS ACUTE RENAL INSUFFICIENCY - Plan Plan: HI PLANNING TO [facility] CONTINUE IV ANTIBIOTIC MERREM CONTINUE VENT SUPPORT MONITOR H/H CBC/BMP IN AM CONTINUE CURRENT PLAN OF CARE Nutritional Asmnt/Malnutr-PDOC - Dietary Evaluation Malnutrition Findings (Please click <Entered> for more info): Nutritional Asmnt/Malnutrition Start: 09/28/17 11: 43 Text: Status: Complete Freq: Protocol: Document 09/28/17 11:44 [email or web address] (Rec: 09/28/17 11:56 [id number] [id number]) Nutritional Asmnt/Malnutrition Patient General Information Nutritional Screening High Risk Consult Diagnosis severe anemia, possible GI bleed, sepsis Pertinent Medical Hx/Surgical Hx DM, parkinson, vent dependent, COUPLER shunt, decubitis ulcer, Gtube Subjective Information Consult received for diabetic stage 3 pressure ulcer POA. Pt seen on vent via trach at time of visit. Pt has gtube noted. Per NOAH Tomlinson, no nutrition plan at this time. pt is on NPO. Current Diet Order/ Nutrition Support NPO Pertinent Medications vitC, d5-0.45, colace, iron, novolog, novolin, culturelle, cephulac, synthroid, protonix, vancomycin, zinc Pertinent Labs 09/27 Na 135, Cl 96, BUN 53, Glucose 157, POC 76-185 Nutritional Hx/Data Height 5 ft 4 in Height (Calculated Centimeters) 162.6 Current Weight (lbs) 165 lb Weight (Calculated Kilograms) 74.8 Weight (Calculated Grams) 77230.7 [place] Body Weight 120 Body Mass Index (BMI) 28.3 Weight Status Overweight GI Symptoms GI Symptoms None Last BM 09/27 Difficult in: None Usual diet at home Diabetisource AC 50ml/hr x 20hr daily at care facility per chart Skin Integrity/Comment: pressure ulcer to sacrum Estimated Nutritional Goals BEE in Kcals: Using Current wt Calories/Kcals/Kg 27-32 Kcals Calculated 4849-9540 Protein: Using Current wt Protein g/k.2-1.4 Protein Calculated 72-84 Fluid: ml 1620-1920ml (1m/kcal) Nutritional Problem 2. Problem Problem increased nutrition needs ( calorie and protein) Etiology impaired skin integrity Signs/Symptoms: state 3 pressure ulcer 1. Problem Problem altered nutrition related labs Etiology hx of DM Signs/Symptoms: Glucose 157, POC 76-185 Malnutrition Alert Is there a minimum of two criteria No selected? Query Text:Check all the applicable criteria. A minimum of two criteria are recommended for diagnosis of either severe or non-severe malnutrition. Malnutrition Related to Morbid Obesity Malnutrition related to morbid obesity No Intervention/Recommendation Comments 1. Monitor NPO status. 2. If TF needed, recommend Diabetisource AC at 55ml/hr continuous and Arginaid 1pkg daily via Gtube for wound healing. This will provide 1584kcal, 79g protein and 1079ml free water, meeting 100 % of estemated nutritional needs 3. Monitor wt, labs and skin integrity 4. F/U as high risk in 2 days, 6/2 Expected Outcomes/Goals Expected Outcomes/Goals 1. Pt to meet at least 75% of nutritional needs 2. Wt stability, skin integrity to improve, labs to approach WNL.
[2017-10-05] MEDS: INSULIN ASPART, RECOMBINANT 100 UNITS/ML SUBQ SCH ×5 (00:58→23:26)
[2017-10-05] MEDS: Albuterol/Ipratropium Neb 3 ML AERS HHN SCH ×4 (02:03→19:02)
[2017-10-05 04:28] LABS: % EOSINOPHILS 6.1 % (0.0-5.0); % LYMPHOCYTES 21.5 % (20.0-50.0); % NEUTROPHILS 68.4 % (40.0-80.0); EOSINOPHILE ABSOLUTE 0.5 Th/cmm (0.1-0.4); HEMATOCRIT 31.2 % (41.0-60); HEMOGLOBIN 10.3 gm/dL (12-16); LYMPHOCYTE ABSOLUTE 1.8 Th/cmm (1.5-3.0); MEAN CELL VOLUME 81.2 fl (81-100); MEAN CORPUSCULAR HEMOGLOBIN 26.7 pg (27.0-31.0); MEAN CORPUSCULAR HGB CONC 32.9 pg (28.0-36.0); MEAN PLATELET VOLUME 7.8 fl; MONOCYTE ABSOLUTE 0.3 Th/cmm (0.3-1.0); RED BLOOD COUNT 3.84 Mil/cmm (3.80-5.20); RED CELL DISTRIBUTION WIDTH 16.4 % (11.5-20.0); WHITE BLOOD COUNT 8.6 Th/cmm (4.8-10.8)
[2017-10-05 04:35] LABS: PLATELET COUNT 156 Th/cmm (150-400)
[2017-10-05 04:47] LABS: ANION GAP 10.5 (7.0-16.0); BUN - UREA NITROGEN 19 mg/dL (7-25); CALCIUM SERUM 8.5 mg/dL (8.6-10.3); CARBON DIOXIDE 22.5 mEq/L (21.0-31.0); CHLORIDE 107 mEq/L (98-107); CREATININE - SERUM 0.5 mg/dL (0.6-1.2); GLUCOSE 143 mg/dL (70-105); MAGNESIUM 2.2 mg/dL (1.9-2.7); SODIUM SERUM 136 mEq/L (136-145)
[2017-10-05] MEDS: Multivitamin w/ Minerals Tab GT SCH (08:52)
[2017-10-05] MEDS: Levothyroxine 0.1 Mg Tab GT SCH (08:52)
[2017-10-05] MEDS: Benztropine 1 MG TAB GT SCH ×2 (08:53→17:23)
[2017-10-05] MEDS: Ferrous Sulfate 300 MG/5 ML UDC GT SCH (08:54)
[2017-10-05] MEDS: Lactobacillus Rhamnosus GG 15 Billion CFU CAP.SPRINK GT SCH (08:54)
[2017-10-05] MEDS: Docusate Sodium 100 mg/10 mL UD GT SCH ×2 (08:54→17:24)
[2017-10-05] MEDS: Levetiracetam 500 mg/5mL 5mL UDSyr *for ORAL USE ONLY GT SCH ×2 (08:55→21:26)
[2017-10-05] MEDS: INSULIN 70/30 100 UNITS/ML SUBQ SCH ×2 (09:00→20:36)
[2017-10-05] MEDS: Chlorhexidine Gluconate 0.12% 15mL Mouthwash MM SCH ×2 (09:00→20:32)
[2017-10-05] MEDS: Petrolatum (White) Oint 0.6 Oz Tube TP SCH (09:00)
[2017-10-05] MEDS: Venelex 60gm Tube TP SCH (12:03)
--- NOTE | 2017-10-05 14:30 | Internal Medicine Prog Note ---
Internal Medicine Subjective - Subjective Service Date: 10/05/17 Patient seen and examined:: with staff Patient is:: awake Patient Complaints of:: congestion Per staff patient has:: tolerating meds Internal Medicine Objective - Results Result Diagrams: 10/05/17 04:15 10/05/17 04:15 Recent Labs: Laboratory Last Values WBC 8.6 Th/cmm (4.8-10.8) 10/05/17 04:15 RBC 3.84 Mil/cmm (3.80-5.20) 10/05/17 04:15 Hgb 10.3 gm/dL (12-16) L 10/05/17 04:15 Hct 31.2 % (41.0-60) L 10/05/17 04:15 MCV 81.2 fl (81-100) 10/05/17 04:15 MCH 26.7 pg (27.0-31.0) L 10/05/17 04:15 MCHC Differential 32.9 pg (28.0-36.0) 10/05/17 04:15 RDW 16.4 % (11.5-20.0) 10/05/17 04:15 Plt Count 156 Th/cmm (150-400) D 10/05/17 04:15 MPV 7.8 fl 10/05/17 04:15 Neutrophils % 68.4 % (40.0-80.0) 10/05/17 04:15 Lymphocytes % 21.5 % (20.0-50.0) 10/05/17 04:15 Monocytes % 4.0 % (2.0-10.0) 10/05/17 04:15 Eosinophils % 6.1 % (0.0-5.0) H 10/05/17 04:15 Basophils % 0.0 % (0.0-2.0) 10/05/17 04:15 Neutrophils (Manual) 79 % (40-80) 10/01/17 04:25 Lymphocytes 15 % (20-50) L 10/01/17 04:25 Monocytes 1 % (2-10) L 10/01/17 04:25 Eosinophils 5 % (0-5) 10/01/17 04:25 Hypochromia 1+ 10/01/17 04:25 Platelet Estimate ADEQUATE (NORMAL) 10/01/17 04:25 Polychromasia 1+ 10/01/17 04:25 Microcytosis 1+ 09/29/17 04:35 PT 11.5 SECONDS (9.5-11.5) 09/27/17 11:09 INR 1.10 (0.5-1.4) 09/27/17 11:09 PTT (Actin FS) 24.9 SECONDS (26.0-38.0) L 09/27/17 11:09 Sodium 136 mEq/L (136-145) 10/05/17 04:15 Potassium 4.0 mEq/L (3.5-5.1) 10/05/17 04:15 Chloride 107 mEq/L (98-107) 10/05/17 04:15 Carbon Dioxide 22.5 mEq/L (21.0-31.0) 10/05/17 04:15 Anion Gap 10.5 (7.0-16.0) 10/05/17 04:15 BUN 19 mg/dL (7-25) 10/05/17 04:15 Creatinine 0.5 mg/dL (0.6-1.2) L 10/05/17 04:15 Est GFR ( Amer) TNP 10/05/17 04:15 Est GFR (Non-Af Amer) TNP 10/05/17 04:15 BUN/Creatinine Ratio 38.0 10/05/17 04:15 Glucose 143 mg/dL (70-105) H 10/05/17 04:15 POC Glucose 161 MG/DL (70 - 105) H 10/05/17 12:12 Hemoglobin A1c % 5.0 % (4.0-6.0) 09/29/17 04:35 Whole Bld Lactic Acid 2.21 mmol/L (0.60-1.99) H* 09/27/17 13:10 Calcium 8.5 mg/dL (8.6-10.3) L 10/05/17 04:15 Magnesium 2.2 mg/dL (1.9-2.7) 10/05/17 04:15 Total Bilirubin 0.3 mg/dL (0.3-1.0) 10/04/17 04:30 AST 51 U/L (13-39) H 10/04/17 04:30 ALT 52 U/L (7-52) 10/04/17 04:30 Alkaline Phosphatase 172 U/L (34-104) H 10/04/17 04:30 Creatine Kinase 308 U/L (30-223) H 09/27/17 11:09 CK-MB (CK-2) 10.6 ng/mL (0.6-6.3) H 09/27/17 11:09 Troponin I 0.01 ng/mL (0.01-0.05) 09/27/17 11:09 B-Natriuretic Peptide 111.0 pg/mL (5.0-100.0) H 10/05/17 04:15 Total Protein 6.3 gm/dL (6.0-8.3) 10/04/17 04:30 Albumin 2.8 gm/dL (3.7-5.3) L 10/04/17 04:30 Globulin 3.5 gm/dL 10/04/17 04:30 Albumin/Globulin Ratio 0.8 (1.0-1.8) L 10/04/17 04:30 Urine Source MIDSTREAM 09/27/17 11:50 Urine Color YELLOW 09/27/17 11:50 Urine Clarity HAZY (CLEAR) 09/27/17 11:50 Urine pH 6.5 (4.6 - 8.0) 09/27/17 11:50 Ur Specific [place] 1.010 (1.005-1.030) 09/27/17 11:50 Urine Protein 30 mg/dL (NEGATIVE) H 09/27/17 11:50 Urine Glucose (UA) NEGATIVE mg/dL (NEGATIVE) 09/27/17 11:50 Urine Ketones NEGATIVE mg/dL (NEGATIVE) 09/27/17 11:50 Urine Blood LARGE (NEGATIVE) H 09/27/17 11:50 Urine Nitrate NEGATIVE (NEGATIVE) 09/27/17 11:50 Urine Bilirubin NEGATIVE (NEGATIVE) 09/27/17 11:50 Urine Urobilinogen 0.2 E.U./dL (0.2 - 1.0) 09/27/17 11:50 Ur Leukocyte Esterase MODERATE (NEGATIVE) H 09/27/17 11:50 Urine RBC 25-50 /hpf (0-5) H 09/27/17 11:50 Urine WBC 6-10 /hpf (0-5) H 09/27/17 11:50 Ur Epithelial Cells MODERATE /lpf (FEW) 09/27/17 11:50 Urine Bacteria 3+ /hpf (NONE SEEN) H 09/27/17 11:50 Stool Occult Blood POSITIVE (NEGATIVE) H 09/28/17 15:15 Vancomycin Trough 16.0 ug/mL (5-10) H 10/03/17 08:00 Blood Type A POSITIVE 10/01/17 06:15 Antibody Screen NEGATIVE 10/01/17 06:15 Crossmatch See Detail 10/01/17 06:15 - Physical Exam Vitals and I&O: Vital Signs Temp 98.2 F 10/05/17 13:00 Pulse 70 10/05/17 13:54 Resp 16 10/05/17 13:00 BP 144/53 10/05/17 13:00 Pulse Ox 100 10/05/17 13:54 Intake & Output 10/04/17 10/05/17 10/05/17 18:59 06:59 18:59 Intake Total 2210 1000 350 Output Total 2300 1450 Balance -90 -450 350 Weight (lbs) 177 lb 177 lb Intake: Intake, IV Amount 350 100 350 Meropenem 1 gm In Sodium 100 100 100 Chloride 0.9% 100 ml @ 100 mls/hr IV Q12HR [facility] Rx#:[id number] Vancomycin HCl 1.25 gm In 250 250 Sodium Chloride 0.9% 250 ml @ 165 mls/hr IV Q24H [facility] Rx#:[id number] Tube Feeding 1320 660 Other 540 240 Output: Urine 2300 1450 Other: # Bowel Movements 2 1 Stool Characteristics Soft Green Weight Source Bedscale Bedscale Active Medications: Current Medications Acetaminophen (Tylenol 650mg/20.3ml Suspension) 650 mg GT Q6HR PRN PRN Reason: Mild Pain or Fever >101 Stop: 11/26/17 13:59 Last Admin: 10/04/17 17:17 Dose: 650 mg Acetaminophen/Hydrocodone Bitart ([place] 5mg/325mg) 1 tab GT Q6H PRN PRN Reason: Pain (Moderate) Stop: 12/01/17 12:11 Acetylcysteine (Mucomyst 20%) 2 ml HHN Q6HRT [facility] Stop: 11/26/17 18:59 Last Admin: 10/05/17 13:49 Dose: 2 ml Albuterol/Ipratropium (Duoneb Neb) 3 ml HHN Q2HRT PRN PRN Reason: Wheezing Stop: 11/26/17 12:30 Albuterol/Ipratropium (Duoneb Neb) 3 ml HHN Q6HRT [facility] Stop: 11/26/17 12:59 Last Admin: 10/05/17 13:49 Dose: 3 ml Allopurinol (Zyloprim) 200 mg GT DAILY [facility] Stop: 11/27/17 08:59 Last Admin: 10/05/17 08:53 Dose: 200 mg Amlodipine Besylate (Norvasc) 5 mg GT DAILY [facility] Stop: 11/27/17 08:59 Last Admin: 10/05/17 10:30 Dose: 5 mg Ascorbic Acid (Vitamin C) 500 mg GT DAILY [facility] Stop: 11/27/17 08:59 Last Admin: 10/05/17 08:52 Dose: 500 mg Benztropine Mesylate (Cogentin) 1 mg GT BID [facility] Stop: 11/26/17 16:59 Last Admin: 10/05/17 08:53 Dose: 1 mg Carbidopa/Levodopa (Sinemet 25mg-100 Mg) 1 tab GT DAILY [facility] Stop: 11/27/17 08:59 Last Admin: 10/05/17 08:52 Dose: 1 tab [place] Oil/Wallisian Balsam/Trypsin (Venelex) 1 appl TP DAILY [facility] Stop: 11/27/17 08:59 Last Admin: 10/05/17 12:03 Dose: Not Given Chlorhexidine Gluconate (Peridex) 15 ml MM 0800,2000 [facility] Stop: 11/29/17 19:59 Last Admin: 10/05/17 09:00 Dose: 15 ml Clonazepam (Klonopin) 0.5 mg GT BID [facility]; Protocol Stop: 11/26/17 16:59 Last Admin: 10/05/17 08:51 Dose: 0.5 mg Docusate Sodium (Colace) 250 mg GT BID [facility] Stop: 11/26/17 16:59 Last Admin: 10/05/17 08:54 Dose: 250 mg Ferrous Sulfate (Iron) 330 mg GT DAILY [facility] Stop: 11/27/17 08:59 Last Admin: 10/05/17 08:54 Dose: 330 mg Furosemide (Lasix) 20 mg IVP BID [facility] Stop: 12/02/17 16:59 Last Admin: 10/05/17 08:56 Dose: 20 mg Vancomycin HCl 1.25 gm/ Sodium (Chloride) 250 mls @ 165 mls/hr IV Q24H [facility] Stop: 11/27/17 08:59 Last Infusion: 10/05/17 12:06 Dose: Infused Norepinephrine Bitartrate 4 mg (/ Dextrose) 254 mls @ 30.48 mls/hr IV TITR PRN ; Protocol PRN Reason: BP MAINTENANCE (PER PROTOCOL) Stop: 11/26/17 21:35 Last Titration: 10/01/17 09:30 Dose: 0 mcg/min, 0 mls/hr Meropenem 1 gm/ Sodium (Chloride) 100 mls @ 100 mls/hr IV Q12HR [facility] Stop: 11/29/17 20:59 Last Infusion: 10/05/17 12:05 Dose: Infused Insulin Aspart (Novolog) 0 units SUBQ Q6HR [facility]; Protocol Stop: 11/29/17 11:59 Last Admin: 10/05/17 12:25 Dose: 2 units Insulin Human Isoph/Insulin Regular (Novolin 70/30) 22 units SUBQ HS [facility]; Protocol Stop: 11/26/17 20:59 Last Admin: 10/04/17 20:46 Dose: 22 units Insulin Human Isoph/Insulin Regular (Novolin 70/30) 45 units SUBQ DAILY [facility]; Protocol Stop: 11/27/17 08:59 Last Admin: 10/05/17 09:00 Dose: Not Given Lactobacillus Rhamnosus (Culturelle 15b) 1 each GT DAILY [facility] Stop: 11/26/17 16:59 Last Admin: 10/05/17 08:54 Dose: 1 each Lactulose (Cephulac) 20 gm GT BID PRN PRN Reason: BOWEL MANAGEMENT Stop: 11/26/17 12:26 Levetiracetam (Keppra) 1,000 mg GT Q12HR [facility] Stop: 11/26/17 20:59 Last Admin: 10/05/17 08:55 Dose: 1,000 mg Levothyroxine Sodium (Synthroid) 0.1 mg GT QDAC [facility] Stop: 11/27/17 07:29 Last Admin: 10/05/17 08:52 Dose: 0.1 mg Lisinopril (Zestril) 20 mg GT DAILY [facility] Stop: 11/27/17 08:59 Last Admin: 10/05/17 08:52 Dose: 20 mg Metoclopramide HCl (Reglan) 10 mg GT Q6HR [facility] Stop: 11/26/17 17:59 Last Admin: 10/05/17 12:28 Dose: 10 mg Miscellaneous (Vancomycin Iv Per Pharmacy) 1 ea MC PRN [facility] Stop: 11/26/17 12:29 Miscellaneous (Probiotic Screen) 1 ea PRN PRN PRN Reason: PROTOCOL Stop: 12/01/17 10:06 Morphine Sulfate (Morphine) 2 mg IVP Q4H PRN PRN Reason: Pain (Severe) Stop: 11/26/17 12:28 Ondansetron HCl (Zofran) 4 mg IV Q8H PRN PRN Reason: Nausea / Vomiting Stop: 11/26/17 12:28 Pantoprazole Sodium (Protonix) 40 mg IVP DAILY [facility] Stop: 11/27/17 09:44 Last Admin: 10/05/17 08:56 Dose: 40 mg Petrolatum (Vaseline Oint) 113 appl TP DAILY [facility] Stop: 11/27/17 08:59 Last Admin: 10/05/17 09:00 Dose: 113 appl Simvastatin (Zocor) 20 mg PO HS [facility]; Protocol Stop: 11/26/17 20:59 Last Admin: 10/04/17 20:37 Dose: 20 mg Sucralfate (Carafate) 1 gm GT QID [facility] Stop: 11/26/17 12:59 Last Admin: 10/05/17 12:28 Dose: 1 gm Zinc Sulfate (Zinc Sulfate) 220 mg GT DAILY [facility] Stop: 11/27/17 08:59 Last Admin: 10/05/17 08:52 Dose: 220 mg General: weak, alert HEENT: NC/AT, PERRLA Neck: Supple, + trach Cardiovascular: RRR Abdomen: soft, non-tender, +GT - Procedures Procedures: Procedures Procedure Code Date AIRWAYS SURGICAL PROCEDURE 46181 03/03/16 BLOOD TRANSFUSION SERVICE 10977 09/27/17 CHANGE FEEDING DEVICE IN UP INTEST TRACT, INFORMATION SECURITY MANAGER APPROACH [id number] 12/10/16 CHANGE GASTROSTOMY TUBE 51975 06/06/13 CONTINUOUS INVASIVE MECHANICAL VENTILATION <96 CONSEC HRS 96.71 02/02/13 CONTINUOUS INVASIVE MECHANICAL VENTILATION =/>96 CONSEC HRS 96.72 06/06/13 [place] [id number] 03/03/16 IMMUNIZATION ADMIN 09354 03/03/16 INFLUENZA VACCINATION 99.52 02/02/13 INSERT NON-TUNNEL CV CATH [id number] 03/03/16 INSERT PICC CATH [id number] 02/02/13 INSERTION OF INFUSION DEV INTO SUP VENA CAVA, PERC APPROACH [id number] 03/03/16 INTRODUCTION OF SERUM/TOX/VACCINE INTO MUSCLE, PERC APPROACH [id number] 03/03/16 OTHER GASTROSTOMY 43.19 06/03/10 REPLACE GASTROSTOMY TUBE 97.02 06/06/13 RESPIRATORY VENTILATION, GREATER THAN 96 CONSECUTIVE HOURS [id number] 09/27/17 TRANSFUSE NONAUT RED BLOOD CELLS IN PERIPH VEIN, PERC [id number] 09/27/17 VACCINATION NEC 99.55 02/02/13 VENOUS CATHETERIZATION NEC 38.93 02/02/13 VENT MGMT INPAT INIT DAY 03/03/16 VENT MGMT INPAT SUBQ DAY 03/03/16 Internal Medicine Assmt/Plan - Assessment Assessment: SEPSIS SECONDARY PNA ACUTE UTI, URINE CULTURE +PROTEUS MIRABILIS ESBL ANEMIA-REQUIRING TRANSFUSION POSSIBLE GI BLEED VDRF CHRONIC HYDROCEPHALUS DEMENTIA DECUBITUS ULCER STAGE 3 DM OBESITY PARKINSON'S LEUKOCYTOSIS ACUTE RENAL INSUFFICIENCY - Plan Plan: [place] [facility] TO [facility] CONTINUE IV ANTIBIOTIC [place] CONTINUE VENT SUPPORT MONITOR H/H CBC/BMP IN AM CONTINUE CURRENT PLAN OF CARE Nutritional Asmnt/Malnutr-PDOC - Dietary Evaluation Malnutrition Findings (Please click <Entered> for more info): Nutritional Asmnt/Malnutrition Start: 09/28/17 11: 43 Text: Status: Complete Freq: Protocol: Document 09/28/17 11:44 CARLOS (Rec: 09/28/17 11:56 LCLINWOOD [id number]) Nutritional Asmnt/Malnutrition Patient General Information Nutritional Screening High Risk Consult Diagnosis severe anemia, possible GI bleed, sepsis Pertinent Medical Hx/Surgical Hx DM, parkinson, vent dependent, [employer] shunt, decubitis ulcer, Gtube Subjective Information Consult received for diabetic stage 3 pressure ulcer POA. Pt seen on vent via trach at time of visit. Pt has gtube noted. Per NOAH Tomlinson, no nutrition plan at this time. pt is on NPO. Current Diet Order/ Nutrition Support NPO Pertinent Medications vitC, d5-0.45, colace, iron, novolog, novolin, culturelle, cephulac, synthroid, protonix, vancomycin, zinc Pertinent Labs 09/27 Na 135, Cl 96, BUN 53, Glucose 157, POC 76-185 Nutritional Hx/Data Height 5 ft 4 in Height (Calculated Centimeters) 162.6 Current Weight (lbs) 165 lb Weight (Calculated Kilograms) 74.8 Weight (Calculated Grams) 93656.7 [place] Body Weight 120 Body Mass Index (BMI) 28.3 Weight Status Overweight GI Symptoms GI Symptoms None Last BM 09/27 Difficult in: None Usual diet at home Diabetisource AC 50ml/hr x 20hr daily at care facility per chart Skin Integrity/Comment: pressure ulcer to sacrum Estimated Nutritional Goals BEE in Kcals: Using Current wt Calories/Kcals/Kg 27-32 Kcals Calculated 2190-1598 Protein: Using Current wt Protein g/k.2-1.4 Protein Calculated 72-84 Fluid: ml 1620-1920ml (1m/kcal) Nutritional Problem 2. Problem Problem increased nutrition needs ( calorie and protein) Etiology impaired skin integrity Signs/Symptoms: state 3 pressure ulcer 1. Problem Problem altered nutrition related labs Etiology hx of DM Signs/Symptoms: Glucose 157, POC 76-185 Malnutrition Alert Is there a minimum of two criteria No selected? Query Text:Check all the applicable criteria. A minimum of two criteria are recommended for diagnosis of either severe or non-severe malnutrition. Malnutrition Related to Morbid Obesity Malnutrition related to morbid obesity No Intervention/Recommendation Comments 1. Monitor NPO status. 2. If TF needed, recommend Diabetisource AC at 55ml/hr continuous and Arginaid 1pkg daily via Gtube for wound healing. This will provide 1584kcal, 79g protein and 1079ml free water, meeting 100 % of estemated nutritional needs 3. Monitor wt, labs and skin integrity 4. F/U as high risk in 2 days, 6/2 Expected Outcomes/Goals Expected Outcomes/Goals 1. Pt to meet at least 75% of nutritional needs 2. Wt stability, skin integrity to improve, labs to approach WNL.
--- NOTE | 2017-10-05 14:51 | Diagnostic Imaging Report ---
CHEST X-RAY: AP view INDICATION: Shortness of breath COMPARISON: 10/03/2017 FINDINGS: Tracheostomy tube is stable. Slight improvement in congestive changes are noted. Persistent low lung lungs are seen with small effusions. Cardiomegaly is noted. There is elevation of the right hemidiaphragm. IMPRESSION: Persistent low lung volumes and small effusions. Overall there has been mild improvement in congestive changes. Pneumonia of the lung bases cannot be excluded. Cardiomegaly.
--- NOTE | 2017-10-05 14:56 | Internal Medicine Prog Note ---
Internal Medicine Subjective - Subjective Service Date: 10/05/17 (DC SUMMARY [id number]) Patient is:: awake Patient Complaints of:: congestion Per staff patient has:: tolerating meds Internal Medicine Objective - Results Result Diagrams: 10/05/17 04:15 10/05/17 04:15 Recent Labs: Laboratory Last Values WBC 8.6 Th/cmm (4.8-10.8) 10/05/17 04:15 RBC 3.84 Mil/cmm (3.80-5.20) 10/05/17 04:15 Hgb 10.3 gm/dL (12-16) L 10/05/17 04:15 Hct 31.2 % (41.0-60) L 10/05/17 04:15 MCV 81.2 fl (81-100) 10/05/17 04:15 MCH 26.7 pg (27.0-31.0) L 10/05/17 04:15 MCHC Differential 32.9 pg (28.0-36.0) 10/05/17 04:15 RDW 16.4 % (11.5-20.0) 10/05/17 04:15 Plt Count 156 Th/cmm (150-400) D 10/05/17 04:15 MPV 7.8 fl 10/05/17 04:15 Neutrophils % 68.4 % (40.0-80.0) 10/05/17 04:15 Lymphocytes % 21.5 % (20.0-50.0) 10/05/17 04:15 Monocytes % 4.0 % (2.0-10.0) 10/05/17 04:15 Eosinophils % 6.1 % (0.0-5.0) H 10/05/17 04:15 Basophils % 0.0 % (0.0-2.0) 10/05/17 04:15 Neutrophils (Manual) 79 % (40-80) 10/01/17 04:25 Lymphocytes 15 % (20-50) L 10/01/17 04:25 Monocytes 1 % (2-10) L 10/01/17 04:25 Eosinophils 5 % (0-5) 10/01/17 04:25 Hypochromia 1+ 10/01/17 04:25 Platelet Estimate ADEQUATE (NORMAL) 10/01/17 04:25 Polychromasia 1+ 10/01/17 04:25 Microcytosis 1+ 09/29/17 04:35 PT 11.5 SECONDS (9.5-11.5) 09/27/17 11:09 INR 1.10 (0.5-1.4) 09/27/17 11:09 PTT (Actin FS) 24.9 SECONDS (26.0-38.0) L 09/27/17 11:09 Sodium 136 mEq/L (136-145) 10/05/17 04:15 Potassium 4.0 mEq/L (3.5-5.1) 10/05/17 04:15 Chloride 107 mEq/L (98-107) 10/05/17 04:15 Carbon Dioxide 22.5 mEq/L (21.0-31.0) 10/05/17 04:15 Anion Gap 10.5 (7.0-16.0) 10/05/17 04:15 BUN 19 mg/dL (7-25) 10/05/17 04:15 Creatinine 0.5 mg/dL (0.6-1.2) L 10/05/17 04:15 Est GFR ( Amer) TNP 10/05/17 04:15 Est GFR (Non-Af Amer) TNP 10/05/17 04:15 BUN/Creatinine Ratio 38.0 10/05/17 04:15 Glucose 143 mg/dL (70-105) H 10/05/17 04:15 POC Glucose 161 MG/DL (70 - 105) H 10/05/17 12:12 Hemoglobin A1c % 5.0 % (4.0-6.0) 09/29/17 04:35 Whole Bld Lactic Acid 2.21 mmol/L (0.60-1.99) H* 09/27/17 13:10 Calcium 8.5 mg/dL (8.6-10.3) L 10/05/17 04:15 Magnesium 2.2 mg/dL (1.9-2.7) 10/05/17 04:15 Total Bilirubin 0.3 mg/dL (0.3-1.0) 10/04/17 04:30 AST 51 U/L (13-39) H 10/04/17 04:30 ALT 52 U/L (7-52) 10/04/17 04:30 Alkaline Phosphatase 172 U/L (34-104) H 10/04/17 04:30 Creatine Kinase 308 U/L (30-223) H 09/27/17 11:09 CK-MB (CK-2) 10.6 ng/mL (0.6-6.3) H 09/27/17 11:09 Troponin I 0.01 ng/mL (0.01-0.05) 09/27/17 11:09 B-Natriuretic Peptide 111.0 pg/mL (5.0-100.0) H 10/05/17 04:15 Total Protein 6.3 gm/dL (6.0-8.3) 10/04/17 04:30 Albumin 2.8 gm/dL (3.7-5.3) L 10/04/17 04:30 Globulin 3.5 gm/dL 10/04/17 04:30 Albumin/Globulin Ratio 0.8 (1.0-1.8) L 10/04/17 04:30 Urine Source MIDSTREAM 09/27/17 11:50 Urine Color YELLOW 09/27/17 11:50 Urine Clarity HAZY (CLEAR) 09/27/17 11:50 Urine pH 6.5 (4.6 - 8.0) 09/27/17 11:50 Ur Specific [place] 1.010 (1.005-1.030) 09/27/17 11:50 Urine Protein 30 mg/dL (NEGATIVE) H 09/27/17 11:50 Urine Glucose (UA) NEGATIVE mg/dL (NEGATIVE) 09/27/17 11:50 Urine Ketones NEGATIVE mg/dL (NEGATIVE) 09/27/17 11:50 Urine Blood LARGE (NEGATIVE) H 09/27/17 11:50 Urine Nitrate NEGATIVE (NEGATIVE) 09/27/17 11:50 Urine Bilirubin NEGATIVE (NEGATIVE) 09/27/17 11:50 Urine Urobilinogen 0.2 E.U./dL (0.2 - 1.0) 09/27/17 11:50 Ur Leukocyte Esterase MODERATE (NEGATIVE) H 09/27/17 11:50 Urine RBC 25-50 /hpf (0-5) H 09/27/17 11:50 Urine WBC 6-10 /hpf (0-5) H 09/27/17 11:50 Ur Epithelial Cells MODERATE /lpf (FEW) 09/27/17 11:50 Urine Bacteria 3+ /hpf (NONE SEEN) H 09/27/17 11:50 Stool Occult Blood POSITIVE (NEGATIVE) H 09/28/17 15:15 Vancomycin Trough 16.0 ug/mL (5-10) H 10/03/17 08:00 Blood Type A POSITIVE 10/01/17 06:15 Antibody Screen NEGATIVE 10/01/17 06:15 Crossmatch See Detail 10/01/17 06:15 - Physical Exam Vitals and I&O: Vital Signs Temp 98.2 F 10/05/17 13:00 Pulse 70 10/05/17 13:54 Resp 16 10/05/17 13:00 BP 144/53 10/05/17 13:00 Pulse Ox 100 10/05/17 13:54 Intake & Output 10/04/17 10/05/17 10/05/17 18:59 06:59 18:59 Intake Total 2210 1000 350 Output Total 2300 1450 Balance -90 -450 350 Weight (lbs) 177 lb 177 lb Intake: Intake, IV Amount 350 100 350 Meropenem 1 gm In Sodium 100 100 100 Chloride 0.9% 100 ml @ 100 mls/hr IV Q12HR [facility] Rx#:[id number] Vancomycin HCl 1.25 gm In 250 250 Sodium Chloride 0.9% 250 ml @ 165 mls/hr IV Q24H [facility] Rx#:[id number] Tube Feeding 1320 660 Other 540 240 Output: Urine 2300 1450 Other: # Bowel Movements 2 1 Stool Characteristics Soft Green Weight Source Bedscale Bedscale Active Medications: Current Medications Acetaminophen (Tylenol 650mg/20.3ml Suspension) 650 mg GT Q6HR PRN PRN Reason: Mild Pain or Fever >101 Stop: 11/26/17 13:59 Last Admin: 10/04/17 17:17 Dose: 650 mg Acetaminophen/Hydrocodone Bitart (S[place]man 5mg/325mg) 1 tab GT Q6H PRN PRN Reason: Pain (Moderate) Stop: 12/01/17 12:11 Acetylcysteine (Mucomyst 20%) 2 ml HHN Q6HRT [facility] Stop: 11/26/17 18:59 Last Admin: 10/05/17 13:49 Dose: 2 ml Albuterol/Ipratropium (Duoneb Neb) 3 ml HHN Q2HRT PRN PRN Reason: Wheezing Stop: 11/26/17 12:30 Albuterol/Ipratropium (Duoneb Neb) 3 ml HHN Q6HRT [facility] Stop: 11/26/17 12:59 Last Admin: 10/05/17 13:49 Dose: 3 ml Allopurinol (Zyloprim) 200 mg GT DAILY [facility] Stop: 11/27/17 08:59 Last Admin: 10/05/17 08:53 Dose: 200 mg Amlodipine Besylate (Norvasc) 5 mg GT DAILY [facility] Stop: 11/27/17 08:59 Last Admin: 10/05/17 10:30 Dose: 5 mg Ascorbic Acid (Vitamin C) 500 mg GT DAILY [facility] Stop: 11/27/17 08:59 Last Admin: 10/05/17 08:52 Dose: 500 mg Benztropine Mesylate (Cogentin) 1 mg GT BID [facility] Stop: 11/26/17 16:59 Last Admin: 10/05/17 08:53 Dose: 1 mg Carbidopa/Levodopa (Sinemet 25mg-100 Mg) 1 tab GT DAILY [facility] Stop: 11/27/17 08:59 Last Admin: 10/05/17 08:52 Dose: 1 tab Friendly Oil/[place] Balsam/Trypsin (Venelex) 1 appl TP DAILY [facility] Stop: 11/27/17 08:59 Last Admin: 10/05/17 12:03 Dose: Not Given Chlorhexidine Gluconate (Peridex) 15 ml MM 0800,2000 [facility] Stop: 11/29/17 19:59 Last Admin: 10/05/17 09:00 Dose: 15 ml Clonazepam (Klonopin) 0.5 mg GT BID [facility]; Protocol Stop: 11/26/17 16:59 Last Admin: 10/05/17 08:51 Dose: 0.5 mg Docusate Sodium (Colace) 250 mg GT BID [facility] Stop: 11/26/17 16:59 Last Admin: 10/05/17 08:54 Dose: 250 mg Ferrous Sulfate (Iron) 330 mg GT DAILY [facility] Stop: 11/27/17 08:59 Last Admin: 10/05/17 08:54 Dose: 330 mg Furosemide (Lasix) 20 mg IVP BID [facility] Stop: 12/02/17 16:59 Last Admin: 10/05/17 08:56 Dose: 20 mg Vancomycin HCl 1.25 gm/ Sodium (Chloride) 250 mls @ 165 mls/hr IV Q24H [facility] Stop: 11/27/17 08:59 Last Infusion: 10/05/17 12:06 Dose: Infused Norepinephrine Bitartrate 4 mg (/ Dextrose) 254 mls @ 30.48 mls/hr IV TITR PRN ; Protocol PRN Reason: BP MAINTENANCE (PER PROTOCOL) Stop: 11/26/17 21:35 Last Titration: 10/01/17 09:30 Dose: 0 mcg/min, 0 mls/hr Meropenem 1 gm/ Sodium (Chloride) 100 mls @ 100 mls/hr IV Q12HR [facility] Stop: 11/29/17 20:59 Last Infusion: 10/05/17 12:05 Dose: Infused Insulin Aspart (Novolog) 0 units SUBQ Q6HR [facility]; Protocol Stop: 11/29/17 11:59 Last Admin: 10/05/17 12:25 Dose: 2 units Insulin Human Isoph/Insulin Regular (Novolin 70/30) 22 units SUBQ HS [facility]; Protocol Stop: 11/26/17 20:59 Last Admin: 10/04/17 20:46 Dose: 22 units Insulin Human Isoph/Insulin Regular (Novolin 70/30) 45 units SUBQ DAILY [facility]; Protocol Stop: 11/27/17 08:59 Last Admin: 10/05/17 09:00 Dose: Not Given Lactobacillus Rhamnosus (Culturelle 15b) 1 each GT DAILY [facility] Stop: 11/26/17 16:59 Last Admin: 10/05/17 08:54 Dose: 1 each Lactulose (Cephulac) 20 gm GT BID PRN PRN Reason: BOWEL MANAGEMENT Stop: 11/26/17 12:26 Levetiracetam (Keppra) 1,000 mg GT Q12HR [facility] Stop: 11/26/17 20:59 Last Admin: 10/05/17 08:55 Dose: 1,000 mg Levothyroxine Sodium (Synthroid) 0.1 mg GT QDAC [facility] Stop: 11/27/17 07:29 Last Admin: 10/05/17 08:52 Dose: 0.1 mg Lisinopril (Zestril) 20 mg GT DAILY [facility] Stop: 11/27/17 08:59 Last Admin: 10/05/17 08:52 Dose: 20 mg Metoclopramide HCl (Reglan) 10 mg GT Q6HR [facility] Stop: 11/26/17 17:59 Last Admin: 10/05/17 12:28 Dose: 10 mg Miscellaneous (Vancomycin Iv Per Pharmacy) 1 ea MC PRN [facility] Stop: 11/26/17 12:29 Miscellaneous (Probiotic Screen) 1 ea MC PRN PRN PRN Reason: PROTOCOL Stop: 12/01/17 10:06 Morphine Sulfate (Morphine) 2 mg IVP Q4H PRN PRN Reason: Pain (Severe) Stop: 11/26/17 12:28 Ondansetron HCl (Zofran) 4 mg IV Q8H PRN PRN Reason: Nausea / Vomiting Stop: 11/26/17 12:28 Pantoprazole Sodium (Protonix) 40 mg IVP DAILY [facility] Stop: 11/27/17 09:44 Last Admin: 10/05/17 08:56 Dose: 40 mg Petrolatum (Vaseline Oint) 113 appl TP DAILY [facility] Stop: 11/27/17 08:59 Last Admin: 10/05/17 09:00 Dose: 113 appl Simvastatin (Zocor) 20 mg PO HS [facility]; Protocol Stop: 11/26/17 20:59 Last Admin: 10/04/17 20:37 Dose: 20 mg Sucralfate (Carafate) 1 gm GT QID [facility] Stop: 11/26/17 12:59 Last Admin: 10/05/17 12:28 Dose: 1 gm Zinc Sulfate (Zinc Sulfate) 220 mg GT DAILY [facility] Stop: 11/27/17 08:59 Last Admin: 10/05/17 08:52 Dose: 220 mg General: weak, alert HEENT: NC/AT, PERRLA Neck: Supple, + trach Cardiovascular: RRR Abdomen: soft, non-tender, +GT - Procedures Procedures: Procedures Procedure Code Date AIRWAYS SURGICAL PROCEDURE 63263 03/03/16 BLOOD TRANSFUSION SERVICE 68957 09/27/17 CHANGE FEEDING DEVICE IN UP INTEST TRACT, NURSING TECH APPROACH [id number] 12/10/16 CHANGE GASTROSTOMY TUBE 24202 06/06/13 CONTINUOUS INVASIVE MECHANICAL VENTILATION <96 CONSEC HRS 96.71 02/02/13 CONTINUOUS INVASIVE MECHANICAL VENTILATION =/>96 CONSEC HRS 96.72 06/06/13 [place] [id number] 03/03/16 IMMUNIZATION ADMIN [id number] 03/03/16 INFLUENZA VACCINATION 99.52 02/02/13 INSERT NON-TUNNEL CV CATH 92290 03/03/16 INSERT PICC CATH [id number] 02/02/13 INSERTION OF INFUSION DEV INTO SUP VENA CAVA, PERC APPROACH [id number] 03/03/16 INTRODUCTION OF SERUM/TOX/VACCINE INTO MUSCLE, PERC APPROACH [id number] 03/03/16 OTHER GASTROSTOMY 43.19 06/03/10 REPLACE GASTROSTOMY TUBE 97.02 06/06/13 RESPIRATORY VENTILATION, GREATER THAN 96 CONSECUTIVE HOURS [id number] 09/27/17 TRANSFUSE NONAUT RED BLOOD CELLS IN PERIPH VEIN, PERC [id number] 09/27/17 VACCINATION NEC 99.55 02/02/13 VENOUS CATHETERIZATION NEC 38.93 02/02/13 VENT MGMT INPAT INIT DAY 03/03/16 VENT MGMT INPAT SUBQ DAY 03/03/16 Internal Medicine Assmt/Plan - Assessment Assessment: SEPSIS SECONDARY PNA ACUTE UTI, URINE CULTURE +PROTEUS MIRABILIS ESBL ANEMIA-REQUIRING TRANSFUSION POSSIBLE GI BLEED VDRF CHRONIC HYDROCEPHALUS DEMENTIA DECUBITUS ULCER STAGE 3 DM OBESITY PARKINSON'S LEUKOCYTOSIS ACUTE RENAL INSUFFICIENCY - Plan Plan: OR PLANNING TO [facility] CONTINUE IV ANTIBIOTIC MERREM CONTINUE VENT SUPPORT MONITOR H/H CBC/BMP IN AM CONTINUE CURRENT PLAN OF CARE Nutritional Asmnt/Malnutr-PDOC - Dietary Evaluation Malnutrition Findings (Please click <Entered> for more info): Nutritional Asmnt/Malnutrition Start: 09/28/17 11: 43 Text: Status: Complete Freq: Protocol: Document 09/28/17 11:44 [id number] (Rec: 09/28/17 11:56 LCHENBrian [email or web address]) Nutritional Asmnt/Malnutrition Patient General Information Nutritional Screening High Risk Consult Diagnosis severe anemia, possible GI bleed, sepsis Pertinent Medical Hx/Surgical Hx DM, parkinson, vent dependent, 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 Pt seen on vent via trach at time of visit. Pt has gtube noted. Per NOAH Tomlinson, no nutrition plan at this time. pt is on NPO. Current Diet Order/ Nutrition Support NPO Pertinent Medications vitC, d5-0.45, colace, iron, novolog, novolin, culturelle, cephulac, synthroid, protonix, vancomycin, zinc Pertinent Labs 09/27 Na 135, Cl 96, BUN 53, Glucose 157, POC 76-185 Nutritional Hx/Data Height 5 ft 4 in Height (Calculated Centimeters) 162.6 Current Weight (lbs) 165 lb Weight (Calculated Kilograms) 74.8 Weight (Calculated Grams) [address].7 [place] Body Weight 120 Body Mass Index (BMI) 28.3 Weight Status Overweight GI Symptoms GI Symptoms None Last BM 09/27 Difficult in: None Usual diet at home Diabetisource AC 50ml/hr x 20hr daily at care facility per chart Skin Integrity/Comment: pressure ulcer to sacrum Estimated Nutritional Goals BEE in Kcals: Using Current wt Calories/Kcals/Kg 27-32 Kcals Calculated 0290-6972 Protein: Using Current wt Protein g/k.2-1.4 Protein Calculated 72-84 Fluid: ml 1620-1920ml (1m/kcal) Nutritional Problem 2. Problem Problem increased nutrition needs ( calorie and protein) Etiology impaired skin integrity Signs/Symptoms: state 3 pressure ulcer 1. Problem Problem altered nutrition related labs Etiology hx of DM Signs/Symptoms: Glucose 157, POC 76-185 Malnutrition Alert Is there a minimum of two criteria No selected? Query Text:Check all the applicable criteria. A minimum of two criteria are recommended for diagnosis of either severe or non-severe malnutrition. Malnutrition Related to Morbid Obesity Malnutrition related to morbid obesity No Intervention/Recommendation Comments 1. Monitor NPO status. 2. If TF needed, recommend Diabetisource AC at 55ml/hr continuous and Arginaid 1pkg daily via Gtube for wound healing. This will provide 1584kcal, 79g protein and 1079ml free water, meeting 100 % of estemated nutritional needs 3. Monitor wt, labs and skin integrity 4. F/U as high risk in 2 days, 6/2 Expected Outcomes/Goals Expected Outcomes/Goals 1. Pt to meet at least 75% of nutritional needs 2. Wt stability, skin integrity to improve, labs to approach WNL.
[2017-10-06] MEDS: Albuterol/Ipratropium Neb 3 ML AERS HHN SCH ×3 (00:27→13:49)
--- NOTE | 2017-10-06 01:03 | Discharge Summary ---
DATE OF DISCHARGE: 10/05/2017 DATE OF DISCHARGE: 10/05/2017 DISCHARGE DIAGNOSES: Sepsis secondary to pneumonia; urinary tract infection, urine culture positive for Proteus mirabilis Extended spectrum beta-lactamase; anemia, requiring transfusion; ____. chronic hydrocephalus; dementia; decubitus ulcer, stage III; type 2 diabetes; obesity; Parkinson's; leukocytosis; and acute renal insufficiency. HISTORY OF PRESENT ILLNESS: This is an 81-year-old female who is well known to me from [facility] who is admitted here to the ICU unit secondary to hemoglobin of 6.6. The patient was seen in the ER, noted to have elevated lactic acid level and elevated white count, sepsis protocol was initiated. PHYSICAL EXAMINATION: GENERAL: Elderly female, awake on ventilator, appears chronically ill. VITAL SIGNS: Stable. HEENT: Normocephalic and atraumatic. NECK: Supple. No mass. LUNGS: Rhonchi bilaterally heard. ABDOMEN: Soft and nontender. HOSPITAL COURSE: During the hospital stay, the patient was admitted to the ICU unit. The patient had a consultation with video news editor as well as GI consult. The patient had a urine culture done and was positive for Proteus mirabilis ESBL. The patient was on IV antibiotics of Merrem 1 gram IV q.12h. At one point, the patient was hypotensive and was kept on Levophed per protocol. The patient's blood pressure has improved. Therefore, Levophed is discontinued. ____ series of blood culture, no growth after 5 days. Due to the need of IV antibiotics, the patient will be transferred to [facility]. CONDITION UPON DISCHARGE: Fair. DISPOSITION: [facility]. JOB# [id number]
[2017-10-06] MEDS: INSULIN ASPART, RECOMBINANT 100 UNITS/ML SUBQ SCH (05:16)
[2017-10-06] MEDS: Levothyroxine 0.1 Mg Tab GT SCH (06:34)
[2017-10-06] MEDS: Chlorhexidine Gluconate 0.12% 15mL Mouthwash MM SCH (07:54)
[2017-10-06 08:19] LABS: CREATININE - SERUM 0.6 mg/dL (0.6-1.2)
[2017-10-06] MEDS: Multivitamin w/ Minerals Tab GT SCH (08:27)
[2017-10-06] MEDS: Lactobacillus Rhamnosus GG 15 Billion CFU CAP.SPRINK GT SCH (08:27)
[2017-10-06] MEDS: Benztropine 1 MG TAB GT SCH ×2 (08:28→16:24)
[2017-10-06] MEDS: Docusate Sodium 100 mg/10 mL UD GT SCH ×2 (08:29→16:23)
[2017-10-06] MEDS: Ferrous Sulfate 300 MG/5 ML UDC GT SCH (08:29)
[2017-10-06] MEDS: Levetiracetam 500 mg/5mL 5mL UDSyr *for ORAL USE ONLY GT SCH (08:30)
[2017-10-06] MEDS: Petrolatum (White) Oint 0.6 Oz Tube TP SCH (08:32)
[2017-10-06] MEDS: Venelex 60gm Tube TP SCH (09:21)
[2017-10-06] MEDS: INSULIN 70/30 100 UNITS/ML SUBQ SCH (09:21)
[2017-10-06] MEDS ORDERED: INSULIN ASPART SLIDING SCALE 100 UNITS/ML UNIT SUBQ SCH (12:45)
== END 2017-10-06 17:15 | DRG 870 ==
LOC: ER 10:49 → ICU 11:45
PROVIDERS: ADMIT Internal Medicine; ATTEND Internal Medicine
PROC: 5A1955Z Respiratory Ventilation, Greater than 96 Consecutive Hours (ICD-10-PCS; principal; 2017-09-27)
PROC: 30233N1 Transfusion of Nonautologous Red Blood Cells into Peripheral Vein, Percutaneous Approach (ICD-10-PCS; 2017-09-27)
DX: A41.9 Sepsis, unspecified organism (principal); L89.153 Pressure ulcer of sacral region, stage 3; J18.9 Pneumonia, unspecified organism; N39.0 Urinary tract infection, site not specified; Z99.11 Dependence on respirator [ventilator] status; K92.2 Gastrointestinal hemorrhage, unspecified; J44.0 Chronic obstructive pulmonary disease with (acute) lower respiratory infection; G91.9 Hydrocephalus, unspecified; J96.10 Chronic respiratory failure, unspecified whether with hypoxia or hypercapnia; Z66 Do not resuscitate; D64.9 Anemia, unspecified; E78.5 Hyperlipidemia, unspecified; M19.90 Unspecified osteoarthritis, unspecified site; F03.90 Unspecified dementia, unspecified severity, without behavioral disturbance, psychotic disturbance, mood disturbance, and anxiety; N28.9 Disorder of kidney and ureter, unspecified; R13.10 Dysphagia, unspecified; B96.4 Proteus (mirabilis) (morganii) as the cause of diseases classified elsewhere; Z16.12 Extended spectrum beta lactamase (ESBL) resistance; I11.9 Hypertensive heart disease without heart failure; E86.0 Dehydration; Z96.89 Presence of other specified functional implants; E11.9 Type 2 diabetes mellitus without complications; E66.9 Obesity, unspecified; G20 Parkinson's disease; Z93.0 Tracheostomy status; Z82.49 Family history of ischemic heart disease and other diseases of the circulatory system; Z83.3 Family history of diabetes mellitus; Z71.89 Other specified counseling; Z93.1 Gastrostomy status; Z79.899 Other long term (current) drug therapy; Z79.4 Long term (current) use of insulin; Z86.73 Personal history of transient ischemic attack (TIA), and cerebral infarction without residual deficits; Z68.31 Body mass index [BMI] 31.0-31.9, adult
CPT/HCPCS: 36415-UA; 71045-TC; 80048-TC; 80053-TC; 80202-TC; 81001-TC; 82270-TC; 82550-TC; 82553; 82565-TC; 82948-90; 83036-90; 83605; 83735-TC; 83880-TC; 84484-TC; 84520-TC; 85007-TC; 85025-TC; 85027-TC; 85610-TC; 85730-TC; 86850-TC; 86900-TC; 86901-TC; 86922-TC; 87086-90; 93005; 94002; 94003; 94640; C9113; J0692; J1815; J1940; J1956; J2185; J3370; J7030; J7040; J7042; P9016; X6452; Z7610

== ENCOUNTER 2018-05-11 15:23 | Inpatient (IN) | payer MEDICARE, OTHER ==
[2018-05-11 16:09] LABS: ALB/GLOB RATIO 0.8 (1.0-1.8); ALBUMIN 3.6 gm/dL (3.7-5.3); ALKALINE PHOSPHATASE 81 U/L (34-104); ANION GAP 15.5 (7.0-16.0); BILIRUBIN,TOTAL 0.3 mg/dL (0.3-1.0); BUN - UREA NITROGEN 66 mg/dL (7-25); CALCIUM SERUM 9.4 mg/dL (8.6-10.3); CARBON DIOXIDE 26.9 mEq/L (21.0-31.0); CHLORIDE 93 mEq/L (98-107); CREATININE - SERUM 1.4 mg/dL (0.6-1.2); GLUCOSE 233 mg/dL (70-105); MAGNESIUM 2.7 mg/dL (1.9-2.7); PHOSPHOROUS 3.9 mg/dL (2.5-5.0); POTASSIUM SERUM 4.4 mEq/L (3.5-5.1); SGOT 13 U/L (13-39); SGPT/ALT 10 U/L (7-52); SODIUM SERUM 131 mEq/L (136-145); TOTAL PROTEIN,SERUM 8.3 gm/dL (6.0-8.3)
[2018-05-11 16:55] LABS: % BASOPHILS 0.3 % (0.0-2.0); % EOSINOPHILS 2.3 % (0.0-5.0); % LYMPHOCYTES 9.3 % (20.0-50.0); % MONOCYTES 8.1 % (2.0-10.0); EOSINOPHILE ABSOLUTE 0.3 Th/cmm (0.1-0.4); LYMPHOCYTE ABSOLUTE 1.1 Th/cmm (1.5-3.0); MEAN CORPUSCULAR HEMOGLOBIN 25.8 pg (27.0-31.0); MEAN CORPUSCULAR HGB CONC 31.9 pg (28.0-36.0); MEAN PLATELET VOLUME 7.5 fl; NEUTROPHILE ABSOLUTE 9.5 Th/cmm (1.8-8.0); PLATELET COUNT 303 Th/cmm (150-400); RED BLOOD COUNT 2.51 Mil/cmm (3.80-5.20); RED CELL DISTRIBUTION WIDTH 18.2 % (11.5-20.0); WHITE BLOOD COUNT 11.9 Th/cmm (4.8-10.8)
[2018-05-11 16:57] LABS: HEMATOCRIT 20.3 % (41.0-60); HEMOGLOBIN 6.5 gm/dL (12-16)
--- NOTE | 2018-05-11 18:01 | ED Physician Chart ---
ED Chief Complaint/HPI - Patient Information Date Seen:: 05/11/18 Time Seen:: 15:23 Chief Complaint:: abnormal labs & hematuria History of Present Illness:: abnormal labs & hematuria Allergies:: Allergies Allergy/AdvReac Type Severity Reaction Status Date / Time No Known Allergies Allergy Verified 03/03/16 18:27 Vitals:: Vital Signs - 8 hr 05/11/18 05/11/18 05/11/18 15:23 15:36 17:23 Temp 98.3 F HR 87 88 84 RR 18 BP 114/49 O2 Sat % 96 96 Historian:: Medical Records Review:: Nurse's Note Reviewed, Transfer documents Reviewed ED Review of Systems - Review of Systems General/Constitutional: No fever, No chills, No weight loss, No weakness, No diaphoresis, No edema, No loss of appetite, Other (abnormal labs) Skin: No skin lesions, No rash, No bruising Head: No headache, No light-headedness Eyes: No loss of vision, No pain, No diplopia ENT: No earache, No nasal drainage, No sore throat, No tinnitus Neck: No neck pain, No swelling, No thyromegaly, No stiffness, No mass noted Cardio Vascular: No chest pain, No palpitations, No PND, No orthopnea, No edema Pulmonary: No SOB, No cough, No sputum, No wheezing GI: No nausea, No vomiting, No diarrhea, No pain, No melena, No hematochezia, No constipation, No hematemesis G/U: Hematuria Musculoskeletal: No bone or joint pain, No back pain, No muscle pain Endocrine: No polyuria, No polydipsia Psychiatric: No prior psych history, No depression, No anxiety, No suicidal ideation Hematopoietic: No bruising, No lymphadenopathy Allergic/Immuno: No urticaria, No angioedema Neurological: No syncope, No focal symptoms, No weakness, No paresthesia, No headache, No seizure, No dizziness, No confusion, No vertigo ED Past Medical History - Past Medical History Past Medical History: HTN, DM, CVA/TIA, PUD/GERD, Seizures, Thyroid disorder, Other (anemia; chronic respiratory failure; obesity; ventilator dependent; Alzheimer's; Parkinson's) Family Medical History - Family Member Mother History Unknown: Yes Ethnicity: Living Status: Unknown Father History Unknown: Yes Ethnicity: Living Status: Unknown ED Physical Exam - Physical Examination Other Gen/Cons comments:: chronically ill appearing, ventilator dependent female with gaze that is up and to the right. Head: Atraumatic Other Eyes comments:: 2 mm pupils that are equally responsive. Other Skin comments:: evidence of prior coccyx ulcer ENMT: External ears, nose nl Neck: Nontender, No nuchal rigidity, No stridor Other Neck comments:: trach at neck Other Respiratory comments:: decreased breath sounds at bases on ventilator. Cardio Vascular: RRR, No murmur, gallop, rubs, NL S1 S2 GI: No tenderness/rebounding/guarding Other GI comments:: distended abdomen. large ventral hernia. Extremities: No tenderness or effusion Other Neuro/Psych comments:: moves mouth intermittently. upward gaze and to the right. Other Misc comments:: evidence of a prior coccyx decubitus. ED Labs/Radiology/EKG Results - Lab Results Results: Laboratory Tests 05/11/18 05/11/18 05/11/18 15:45 15:45 15:45 WBC 11.9 H RBC 2.51 L Hgb 6.5 L* Hct 20.3 L* MCV 81.0 MCH 25.8 L MCHC Differential 31.9 RDW 18.2 Plt Count 303 MPV 7.5 Neutrophils % 80.0 Lymphocytes % 9.3 L Monocytes % 8.1 Eosinophils % 2.3 Basophils % 0.3 Sodium 131 L Potassium 4.4 Chloride 93 L Carbon Dioxide 26.9 Anion Gap 15.5 BUN 66 H Creatinine 1.4 H Est GFR ( Amer) TNP Est GFR (Non-Af Amer) TNP BUN/Creatinine Ratio 47.1 Glucose 233 H Whole Bld Lactic Acid 1.45 Calcium 9.4 Phosphorus 3.9 Magnesium 2.7 Total Bilirubin 0.3 AST 13 ALT 10 Alkaline Phosphatase 81 Total Protein 8.3 Albumin 3.6 L Globulin 4.7 Albumin/Globulin Ratio 0.8 L ED Assessment - Assessment General Assessment: CXR: per my reading, bilateral lower lobe pneumonia more on the left than on the r phone call to Dr. Garza who was given report and who will admit the patient and write the orders for the urinary tract infection. ED Septic Shock - . Is Septic Shock (SBP<90, OR Lactate>4 mmol\L) present?: No - <6hrs of presentation: Vital Signs: Vital Signs - 8 hr 05/11/18 05/11/18 05/11/18 15:23 15:36 17:23 Temp 98.3 F HR 87 88 84 RR 18 BP 114/49 O2 Sat % 96 96 ED Reassessment (Disposition) - Reassessment Reassessment Condition:: Unchanged, Improved - Diagnosis Diagnosis:: Ventilator dependent patient chronic respiratory failure anemia with hemoglobin of 6 Hematuria (recommended discontinuation of vitamin E since this is a blood thinner) obesity Alzheimer's Parkinson's - Patient Disposition Discharge/Transfer:: Acute Care w/in this hosp Admitted to:: ICU Condition at Disposition:: Stable, Unchanged
[2018-05-11 18:18] LABS: URINE SOURCE CATH
[2018-05-11 18:24] LABS: URINE BILIRUBIN SMALL (NEGATIVE); URINE BLOOD LARGE (NEGATIVE); URINE GLUCOSE (UA) NEGATIVE (NEGATIVE); URINE KETONE NEGATIVE (NEGATIVE); URINE LEUKOCYTE ESTERASE LARGE (NEGATIVE); URINE MICROSCOPIC INDICATED? YES; URINE NITRATE NEGATIVE (NEGATIVE); URINE PROTEIN 100 mg/dL (NEGATIVE); URINE UROBILINOGEN 0.2 E.U./dL (0.2 - 1.0)
[2018-05-11 18:43] LABS: AMPHETAMINE URINE NEGATIVE (NEGATIVE); BARBITURATES URINE NEGATIVE (NEGATIVE); BENZODIAZEPINES QUAL URINE NEGATIVE (NEGATIVE); CANNABINOID THC NEGATIVE (NEGATIVE); COCAINE METABOLITE QUAL URINE NEGATIVE (NEGATIVE); METHADONE URINE NEGATIVE (NEGATIVE); METHAMPHETAMINES QUAL URINE NEGATIVE (NEGATIVE); OPIATES (MORPHINE) QUAL. URINE POSITIVE (NEGATIVE); PHENCYCLIDINE (PCP) URINE NEGATIVE (NEGATIVE); TRICYCLICS (TCA) QUAL. URINE NEGATIVE (NEGATIVE)
[2018-05-11 18:49] LABS: URINE CLARITY CLOUDY (CLEAR); URINE COLOR BROWN
[2018-05-11 18:51] LABS: URINE RBC 25-50 /hpf (0-5)
[2018-05-11 18:52] LABS: URINE BACTERIA 4+ /hpf (NONE SEEN); URINE EPITHELIAL CELLS MODERATE /lpf (FEW); URINE WBC 50-100 /hpf (0-5)
[2018-05-11] MEDS ORDERED: Lactulose 10 Gm/15 mL 30mL UDC GT PRN (19:14)
[2018-05-11] MEDS ORDERED: Albuterol/Ipratropium Neb 3 ML AERS HHN PRN (19:14)
[2018-05-11] MEDS ORDERED: Hydrocodone/APAP 5mg/325mg Tab GT PRN (19:14)
[2018-05-11] MEDS ORDERED: INSULIN ASPART, RECOMBINANT 100 UNITS/ML SUBQ SCH (19:15)
[2018-05-11] MEDS ORDERED: Ipratropium Neb 0.5 mg/2.5 mL UD HHN PRN (19:23)
[2018-05-11] MEDS ORDERED: Albuterol Nebulizer 2.5mg/3mL HHN PRN (19:23)
[2018-05-11] MEDS ORDERED: Chlorhexidine Gluconate 0.12% 15mL Mouthwash MM SCH (20:00)
--- NOTE | 2018-05-11 20:42 | History & Physical ---
ADMIT DATE: 05/11/2018 CHIEF COMPLAINT: Low hemoglobin and blood in the urine. 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 The patient also with findings consistent with urinary tract infection. The patient has blood in the urine. The patient is currently on ventilator, nonverbal, non-interactive. Chest x-ray shows no infiltrates. PAST MEDICAL HISTORY: As mentioned in history of present illness. PAST SURGICAL HISTORY: HOTEL NIGHT AUDITOR shunt, G-tube and trach. ALLERGIES: No known drug allergies. MEDICATIONS: Insulin, simvastatin, multivitamin, Tylenol, aspirin, Sinemet, albuterol, Atrovent, glipizide, Norvasc, Cogentin, famotidine, iron, [place], Keppra, ____. FAMILY HISTORY: Noncontributory. SOCIAL HISTORY: The patient lives in correction. The patient requiring 24-hour total care. REVIEW OF SYSTEMS: This is limited secondary to the patient's current mental state. We will try to obtain more detailed review of systems at a later date by talking to family members. There is a son, Jean Paul with #[phone] as well as the nursing staff from [facility] [phone] Henriquez. PHYSICAL EXAMINATION: VITAL SIGNS: Blood pressure 120/48, respirations 16, pulse 98, temperature 99.6. GENERAL: Elderly female, appears chronically ill. NECK: Positive trach. LUNGS: Decreased breath sounds, few rhonchi. HEART: Regular rate and rhythm. Systolic ejection murmur. ABDOMEN: Soft, globular. EXTREMITIES: Positive excoriations. Positive decubitus ulcer. NEUROLOGIC: Limited. LABORATORY DATA: WBC 11.9, hemoglobin 6.5, platelets is 303. Sodium 131, potassium 4.2, BUN 66, creatinine 1.4. Blood sugar 333, albumin 3.6. UA, large leukocytes as well as blood, 50 rbcs', 100 wbcs' and 4+ bacteria. ASSESSMENT: Anemia, which is severe, possibly secondary to a GI source versus hematuria from sepsis, possible pneumonia, urinary tract infection, ventilator dependent respiratory failure, chronic hydrocephalus, dementia, decubitus ulcer, diabetes, obesity, Parkinson, leukocytosis, renal insufficiency, hyponatremia. PLAN: We will continue the patient on aggressive IV hydration and IV antibiotic. We will certainly give the patient vancomycin as well as Zosyn. We will hold the patient for blood transfusion. We will send for iron studies as well. We will discontinue aspirin as well as nonsteroidal anti-inflammatory drugs. We will continue to monitor the patient in ICU setting. Critical care will also be following. JOB# [id number]
[2018-05-11] MEDS ORDERED: Non-Formulary Item 1 EA (Levetiracetam [Keppra] 1,000 MG) GT SCH (21:00)
[2018-05-11] MEDS: Sodium Chloride 0.9% 1,000 ML IV SCH (21:37)
[2018-05-11] MEDS: Chlorhexidine Gluconate 0.12% 15mL Mouthwash MM SCH (23:27)
[2018-05-11] MEDS: INSULIN 70/30 100 UNITS/ML SUBQ SCH (23:30)
[2018-05-11] MEDS ORDERED: Piperacillin Sodium/Tazobact 2.25 gm Vial IV ONE (23:32)
[2018-05-11] MEDS: Piperacillin Sodium/Tazobact 2.25 GM in Sodium Chloride 0.9% 100 ML IV SCH (23:40)
[2018-05-12] MEDS: INSULIN ASPART, RECOMBINANT 100 UNITS/ML SUBQ SCH ×4 (00:11→17:32)
[2018-05-12] MEDS ORDERED: Influenza Vaccine (65 yr & older) 0.5 ml Syr IM ONE (03:12)
[2018-05-12] MEDS ORDERED: Pneumococcal Vaccine 0.5 mL Vial IM ONE (03:12)
[2018-05-12] MEDS: Albuterol/Ipratropium Neb 3 ML AERS HHN SCH ×5 (03:16→19:01)
[2018-05-12] MEDS ORDERED: Piperacillin Sodium/Tazobact 2.25 gm Vial IV ONE (05:19)
[2018-05-12] MEDS: Piperacillin Sodium/Tazobact 2.25 GM in Sodium Chloride 0.9% 100 ML IV SCH ×3 (05:26→20:36)
[2018-05-12 07:23] VITALS: BP 132/59
[2018-05-12 07:25] LABS: HEMOGLOBIN 8.9 gm/dL (12-16); MEAN CELL VOLUME 81.9 fl (81-100); MEAN CORPUSCULAR HEMOGLOBIN 26.5 pg (27.0-31.0); MEAN CORPUSCULAR HGB CONC 32.3 pg (28.0-36.0); MEAN PLATELET VOLUME 7.5 fl; PLATELET COUNT 319 Th/cmm (150-400); RED BLOOD COUNT 3.38 Mil/cmm (3.80-5.20); RED CELL DISTRIBUTION WIDTH 16.6 % (11.5-20.0); WHITE BLOOD COUNT 11.6 Th/cmm (4.8-10.8)
[2018-05-12 07:41] LABS: ANION GAP 14.3 (7.0-16.0); BUN - UREA NITROGEN 56 mg/dL (7-25); CALCIUM SERUM 9.4 mg/dL (8.6-10.3); CARBON DIOXIDE 27.3 mEq/L (21.0-31.0); CHLORIDE 98 mEq/L (98-107); CREATININE - SERUM 1.2 mg/dL (0.6-1.2); GLUCOSE 214 mg/dL (70-105); POTASSIUM SERUM 4.6 mEq/L (3.5-5.1); SODIUM SERUM 135 mEq/L (136-145)
[2018-05-12 08:04] LABS: HEMATOCRIT 27.7 % (41.0-60)
[2018-05-12 08:26] LABS: BAND NEUTROPHILE 1 % (0-10); BASOPHIL 0 % (0-3); EOSINOPHIL 2 % (0-5); LYMPHOCYTE 5 % (20-50); MONOCYTE 6 % (2-10); NEUTROPHILS 86 % (40-80)
--- NOTE | 2018-05-12 08:30 | Diagnostic Imaging Report ---
Portable chest x-ray HISTORY: Shortness of breath Compared with prior exam of October 05, 2017, persistent density is noted in left lower hemithorax. Findings may be associated with pleural fluid. Underlying consolidation and/or atelectasis cannot be excluded. Tracheostomy noted. IMPRESSION: 1. No change from October 05, 2017. Chronic density in the left lower hemithorax. A pleural effusion cannot be excluded.
--- NOTE | 2018-05-12 08:32 | Diagnostic Imaging Report ---
KUB abdominal film HISTORY: Abdominal distention There is a nonspecific gas pattern of nondilated bowel. No free intraperitoneal air. Catheter tubing projects over the left abdomen. IMPRESSION: Nonspecific bowel gas pattern with no acute radiographic abnormalities
[2018-05-12] MEDS ORDERED: ACIDOPHILUS GT SCH (09:00)
[2018-05-12] MEDS ORDERED: Non-Formulary Item 1 EA (Collagenase Clostridium Hist. [Santyl] 1 APPL) TP SCH (09:00)
[2018-05-12] MEDS ORDERED: Non-Formulary Item 1 EA (Ascorbic Acid [Vitamin C] 500 MG) GT SCH (09:00)
[2018-05-12] MEDS ORDERED: PETROLATUM WHITE TP SCH (09:00)
[2018-05-12] MEDS ORDERED: BULGARICUS GT SCH (09:00)
[2018-05-12] MEDS ORDERED: LANOLIN TP SCH (09:00)
[2018-05-12] MEDS ORDERED: Non-Formulary Item 1 EA (Calcium Alginate [Kendall] 1 EACH) TP SCH (09:00)
[2018-05-12] MEDS: Ferrous Sulfate 300 MG/5 ML UDC GT SCH (09:27)
[2018-05-12] MEDS: Levetiracetam 500 mg/5mL 5mL UDSyr *for ORAL USE ONLY GT SCH ×2 (09:27→20:58)
[2018-05-12] MEDS: Lactobacillus Rhamnosus GG 15 Billion CFU CAP.SPRINK GT SCH (09:27)
[2018-05-12] MEDS: Multivitamin w/ Minerals Tab GT SCH (09:28)
[2018-05-12] MEDS: Benztropine 1 MG TAB GT SCH ×2 (09:28→17:26)
[2018-05-12] MEDS: Chlorhexidine Gluconate 0.12% 15mL Mouthwash MM SCH ×2 (09:29→20:40)
[2018-05-12] MEDS: Levothyroxine 0.1 Mg Tab GT SCH (09:31)
[2018-05-12] MEDS: INSULIN 70/30 100 UNITS/ML SUBQ SCH ×2 (09:37→20:58)
--- NOTE | 2018-05-12 09:57 | Internal Medicine Prog Note ---
Internal Medicine Subjective - Subjective Patient seen and examined:: with staff, chart reviewed Patient is:: asleep, non-verbal, non-interactive, eyes closed, in bed, congested Patient Complaints of:: congestion Per staff patient has:: no adverse event, no episodes of fall, tolerating meds Internal Medicine Objective - Results Result Diagrams: 05/12/18 07:10 05/12/18 07:10 Recent Labs: Laboratory Last Values WBC 11.6 Th/cmm (4.8-10.8) H 05/12/18 07:10 RBC 3.38 Mil/cmm (3.80-5.20) L 05/12/18 07:10 Hgb 8.9 gm/dL (12-16) L 05/12/18 07:10 Hct 27.7 % (41.0-60) L D 05/12/18 07:10 MCV 81.9 fl (81-100) 05/12/18 07:10 MCH 26.5 pg (27.0-31.0) L 05/12/18 07:10 MCHC Differential 32.3 pg (28.0-36.0) 05/12/18 07:10 RDW 16.6 % (11.5-20.0) 05/12/18 07:10 Plt Count 319 Th/cmm (150-400) 05/12/18 07:10 MPV 7.5 fl 05/12/18 07:10 Add Manual Diff YES 05/12/18 07:10 Neutrophils % 80.0 % (40.0-80.0) 05/11/18 15:45 Band Neutrophils % 1 % (0-10) 05/12/18 07:10 Lymphocytes % 9.3 % (20.0-50.0) L 05/11/18 15:45 Monocytes % 8.1 % (2.0-10.0) 05/11/18 15:45 Eosinophils % 2.3 % (0.0-5.0) 05/11/18 15:45 Basophils % 0.3 % (0.0-2.0) 05/11/18 15:45 Neutrophils (Manual) 86 % (40-80) H 05/12/18 07:10 Lymphocytes 5 % (20-50) L 05/12/18 07:10 Monocytes 6 % (2-10) 05/12/18 07:10 Eosinophils 2 % (0-5) 05/12/18 07:10 Basophils 0 % (0-3) 05/12/18 07:10 Sodium 135 mEq/L (136-145) L 05/12/18 07:10 Potassium 4.6 mEq/L (3.5-5.1) 05/12/18 07:10 Chloride 98 mEq/L (98-107) 05/12/18 07:10 Carbon Dioxide 27.3 mEq/L (21.0-31.0) 05/12/18 07:10 Anion Gap 14.3 (7.0-16.0) 05/12/18 07:10 BUN 56 mg/dL (7-25) H 05/12/18 07:10 Creatinine 1.2 mg/dL (0.6-1.2) 05/12/18 07:10 Est GFR ( Amer) TNP 05/12/18 07:10 Est GFR (Non-Af Amer) TNP 05/12/18 07:10 BUN/Creatinine Ratio 46.7 05/12/18 07:10 Glucose 214 mg/dL (70-105) H 05/12/18 07:10 POC Glucose 232 MG/DL (70 - 105) H 05/12/18 09:35 Whole Bld Lactic Acid 1.45 mmol/L (0.60-1.99) 05/11/18 15:45 Calcium 9.4 mg/dL (8.6-10.3) 05/12/18 07:10 Phosphorus 3.9 mg/dL (2.5-5.0) 05/11/18 15:45 Magnesium 2.7 mg/dL (1.9-2.7) 05/11/18 15:45 Total Bilirubin 0.3 mg/dL (0.3-1.0) 05/11/18 15:45 AST 13 U/L (13-39) 05/11/18 15:45 ALT 10 U/L (7-52) 05/11/18 15:45 Alkaline Phosphatase 81 U/L (34-104) 05/11/18 15:45 Ammonia 40 umol/L (16-53) 05/12/18 07:10 B-Natriuretic Peptide 68.1 pg/mL (5.0-100.0) 05/12/18 07:10 Total Protein 8.3 gm/dL (6.0-8.3) 05/11/18 15:45 Albumin 3.6 gm/dL (3.7-5.3) L 05/11/18 15:45 Globulin 4.7 gm/dL 05/11/18 15:45 Albumin/Globulin Ratio 0.8 (1.0-1.8) L 05/11/18 15:45 TSH 1.25 uIU/ml (0.34-5.60) 05/11/18 15:45 Urine Source CATH 05/11/18 16:50 Urine Color BROWN 05/11/18 16:50 Urine Clarity CLOUDY (CLEAR) H 05/11/18 16:50 Urine pH 7.0 (4.6 - 8.0) 05/11/18 16:50 Ur Specific [place] 1.010 (1.005-1.030) 05/11/18 16:50 Urine Protein 100 mg/dL (NEGATIVE) H 05/11/18 16:50 Urine Glucose (UA) NEGATIVE mg/dL (NEGATIVE) 05/11/18 16:50 Urine Ketones NEGATIVE mg/dL (NEGATIVE) 05/11/18 16:50 Urine Blood LARGE (NEGATIVE) H 05/11/18 16:50 Urine Nitrate NEGATIVE (NEGATIVE) 05/11/18 16:50 Urine Bilirubin SMALL (NEGATIVE) H 05/11/18 16:50 Urine Urobilinogen 0.2 E.U./dL (0.2 - 1.0) 05/11/18 16:50 Ur Leukocyte Esterase LARGE (NEGATIVE) H 05/11/18 16:50 Urine RBC 25-50 /hpf (0-5) H 05/11/18 16:50 Urine WBC 50-100 /hpf (0-5) H 05/11/18 16:50 Ur Epithelial Cells MODERATE /lpf (FEW) 05/11/18 16:50 Urine Bacteria 4+ /hpf (NONE SEEN) H 05/11/18 16:50 Urine Opiates Screen POSITIVE (NEGATIVE) H 05/11/18 16:50 Urine Methadone Screen NEGATIVE (NEGATIVE) 05/11/18 16:50 Ur Barbiturates Screen NEGATIVE (NEGATIVE) 05/11/18 16:50 Ur Tricyclics Screen NEGATIVE (NEGATIVE) 05/11/18 16:50 Ur Phencyclidine Scrn NEGATIVE (NEGATIVE) 05/11/18 16:50 Amphetamines Screen NEGATIVE (NEGATIVE) 05/11/18 16:50 U Methamphetamines Scrn NEGATIVE (NEGATIVE) 05/11/18 16:50 U Benzodiazepines Scrn NEGATIVE (NEGATIVE) 05/11/18 16:50 U Cocaine Metab Screen NEGATIVE (NEGATIVE) 05/11/18 16:50 U Cannabinoids Screen NEGATIVE (NEGATIVE) 05/11/18 16:50 Blood Type A POSITIVE 05/11/18 16:48 Rho(D) Type Cancelled 05/11/18 16:48 Antibody Screen NEGATIVE 05/11/18 16:48 Crossmatch See Detail 05/11/18 16:48 BBK History Checked Cancelled 05/11/18 16:48 - Physical Exam Vitals and I&O: Vital Signs Temp 99.0 F 05/12/18 06:00 Pulse 114 05/12/18 09:27 Resp 16 05/12/18 07:00 BP 144/65 05/12/18 09:27 Pulse Ox 100 05/12/18 09:15 Intake & Output 05/11/18 05/12/18 05/12/18 18:59 06:59 18:59 Intake Total 1002.667 Balance 1002.667 Weight (lbs) 78.199 kg 78.018 kg Intake: Intake, IV Amount 1002.667 Aztreonam 1 gm In 100 Dextrose 5% 50 ml @ 100 mls/hr IV Q12HR [facility]ANCISCO Rx#: [id number] Piperacillin Sodium/ 200 Tazobact 2.25 gm In Sodium Chloride 0.9% 100 ml @ 100 mls/hr IV Q8HR [facility] FRANCISCO Rx#:[id number] Sodium Chloride 0.9% 1, 702.667 000 ml @ 80 mls/hr IV . [id number] [facility] FRANCISCO Rx#:[id number] Other: Weight Source Estimated Estimated Active Medications: Current Medications Acetaminophen (Tylenol 650mg/20.3ml Suspension) 650 mg GT Q6HR PRN PRN Reason: Mild Pain or Fever >101 Stop: 07/10/18 19:13 Last Admin: 05/11/18 21:39 Dose: 650 mg Acetaminophen/Hydrocodone Bitart (Pepperell 5mg/325mg) 1 tab GT Q6H PRN PRN Reason: Severe Pain Stop: 07/10/18 19:13 Acetylcysteine (Mucomyst 20%) 2 ml HHN Q6HRT [facility] Stop: 07/11/18 00:59 Albuterol Sulfate (Albuterol 2.5mg/3ml Neb Ud) 2.5 mg HHN Q2HRT PRN PRN Reason: Shortness of Breath or Wheeze Stop: 07/10/18 19:22 Albuterol/Ipratropium (Duoneb Neb) 3 ml HHN Q6HRT [facility] Stop: 07/11/18 00:59 Last Admin: 05/12/18 07:05 Dose: 3 ml Albuterol/Ipratropium (Duoneb Neb) 3 ml HHN Q2HRT PRN PRN Reason: Wheezing Stop: 07/10/18 19:13 Amlodipine Besylate (Norvasc) 5 mg GT DAILY [facility] Stop: 07/11/18 08:59 Last Admin: 05/12/18 09:27 Dose: 5 mg Ascorbic Acid (Vitamin C) 500 mg GT DAILY [facility] Stop: 07/11/18 08:59 Last Admin: 05/12/18 09:28 Dose: 500 mg Benztropine Mesylate (Cogentin) 1 mg GT BID [facility] Stop: 07/11/18 08:59 Last Admin: 05/12/18 09:28 Dose: 1 mg Carbidopa/Levodopa (Sinemet 25mg-100 Mg) 1 tab GT DAILY [facility] Stop: 07/11/18 08:59 Last Admin: 05/12/18 09:28 Dose: 1 tab Chlorhexidine Gluconate (Peridex) 15 ml MM 0800,2000 [facility] Stop: 07/10/18 19:59 Last Admin: 05/12/18 09:29 Dose: 15 ml Clonazepam (Klonopin) 0.5 mg GT BID [facility]; Protocol Stop: 07/11/18 08:59 Last Admin: 05/12/18 09:27 Dose: 0.5 mg Docusate Sodium (Colace) 250 mg PO BID [facility] Stop: 07/11/18 08:59 Last Admin: 05/12/18 09:28 Dose: 250 mg Ferrous Sulfate (Iron) 330 mg GT DAILY [facility] Stop: 07/11/18 08:59 Last Admin: 05/12/18 09:27 Dose: 330 mg Gemfibrozil (Lopid) 600 mg GT BID [facility] Stop: 07/11/18 08:59 Last Admin: 05/12/18 09:31 Dose: 600 mg Sodium Chloride (Nacl 0.9%) 1,000 mls @ 80 mls/hr IV .[id number] [facility] Stop: 07/10/18 19:29 Last Infusion: 05/12/18 06:24 Dose: 80 mls/hr Piperacillin Sod/Tazobactam (Sod 2.25 gm/ Sodium Chloride) 100 mls @ 100 mls/ hr IV Q8HR [facility] Stop: 07/10/18 20:59 Last Infusion: 05/12/18 06:30 Dose: Infused Insulin Aspart (Novolog) 0 units SUBQ Q6H [facility]; Protocol Stop: 07/11/18 00:00 Last Admin: 05/12/18 06:20 Dose: 2 units Insulin Human Isoph/Insulin Regular (Novolin 70/30) 22 units SUBQ HS [facility]; Protocol Stop: 07/10/18 20:59 Last Admin: 05/11/18 23:30 Dose: 22 units Insulin Human Isoph/Insulin Regular (Novolin 70/30) 45 units SUBQ DAILY [facility]; Protocol Stop: 07/11/18 08:59 Last Admin: 05/12/18 09:37 Dose: 45 units Ipratropium Bryant (Atrovent Neb 0.5mg/2.5ml) 0.5 mg HHN Q2HRT PRN PRN Reason: Shortness of Breath or Wheeze Stop: 07/10/18 19:22 Lactobacillus Rhamnosus (Culturelle 15b) 1 each GT DAILY [facility] Stop: 07/11/18 08:59 Last Admin: 05/12/18 09:27 Dose: 1 each Lactulose (Cephulac) 20 gm GT PRN PRN PRN Reason: BOWEL MANAGEMENT Stop: 07/10/18 19:13 Levetiracetam (Keppra) 1,000 mg GT Q12HR [facility] Stop: 07/11/18 08:59 Last Admin: 05/12/18 09:27 Dose: 1,000 mg Levothyroxine Sodium (Synthroid) 0.1 mg GT QDAC [facility] Stop: 07/11/18 07:29 Last Admin: 05/12/18 09:31 Dose: 0.1 mg Lorazepam (Ativan) 1 mg IV Q4H PRN; Protocol PRN Reason: Seizure Stop: 07/10/18 19:22 Metoclopramide HCl (Reglan) 10 mg GT Q6HR [facility] Stop: 07/11/18 00:00 Last Admin: 05/12/18 06:24 Dose: 10 mg Miscellaneous (Calcium Alginate [Juan]) 1 each TP DAILY [facility] Stop: 07/11/18 08:59 Miscellaneous (Collagenase Clostridium Hist. [Santyl]) 1 appl TP DAILY [facility] Stop: 07/11/18 08:59 Miscellaneous (Petrolatum,White/Lanolin [Vitamin A And D Ointment]) 113 gm TP DAILY [facility] Stop: 07/11/18 08:59 Ondansetron HCl (Zofran) 4 mg IV Q8H PRN PRN Reason: Nausea / Vomiting Stop: 07/10/18 19:23 Pantoprazole Sodium (Protonix) 40 mg IVP BID [facility] Stop: 07/11/18 08:59 Last Admin: 05/12/18 09:28 Dose: 40 mg Simvastatin (Zocor) 20 mg PO HS [facility]; Protocol Stop: 07/10/18 20:59 Last Admin: 05/11/18 23:26 Dose: 20 mg Sucralfate (Carafate) 1 gm GT QID [facility] Stop: 07/10/18 20:59 Last Admin: 05/12/18 09:31 Dose: 1 gm Zinc Sulfate (Zinc Sulfate) 220 mg GT DAILY [facility] Stop: 07/11/18 08:59 Last Admin: 05/12/18 09:27 Dose: 220 mg General: congested, demented, obtunded HEENT: NC/AT, PERRLA Neck: Supple, No JVD, No LAD, + trach, deformity Lungs: congested, rales, ronchi Cardiovascular: RRR, Normal S1, Normal S2, with murmur Abdomen: soft, globular, +GT, positive bowel sound Extremities: excoriation, contracture, deformity Neurological: no change, unable to follow command, bedbound - Procedures Procedures: Procedures Procedure Code Date AIRWAYS SURGICAL PROCEDURE 46373 03/03/16 BLOOD TRANSFUSION SERVICE 44370 09/27/17 CHANGE FEEDING DEVICE IN UP INTEST TRACT, [facility] [facility] APPROACH [id number] 12/10/16 CHANGE GASTROSTOMY TUBE 35320 06/06/13 CONTINUOUS INVASIVE MECHANICAL VENTILATION <96 CONSEC HRS 96.71 02/02/13 CONTINUOUS INVASIVE MECHANICAL VENTILATION =/>96 CONSEC HRS 96.72 06/06/13 [place] [id number] 03/03/16 IMMUNIZATION ADMIN 03537 03/03/16 INFLUENZA VACCINATION 99.52 02/02/13 INSERT NON-TUNNEL CV CATH 89583 03/03/16 INSERTION OF INFUSION DEV INTO SUP VENA CAVA, [facility] APPROACH [id number] 03/03/16 INSJ PICC 5 YR+ W/O IMAGING 52480 02/02/13 INTRODUCTION OF SERUM/TOX/VACCINE INTO MUSCLE, [facility] APPROACH [id number] 03/03/16 OTHER GASTROSTOMY 43.19 06/03/10 REPLACE GASTROSTOMY TUBE 97.02 06/06/13 RESPIRATORY VENTILATION, GREATER THAN 96 CONSECUTIVE HOURS [id number] 09/27/17 TRANSFUSE NONAUT RED BLOOD CELLS IN PERIPH VEIN, [facility] [id number] 09/27/17 VACCINATION NEC 99.55 02/02/13 VENOUS CATHETERIZATION NEC 38.93 02/02/13 VENT MGMT INPAT INIT DAY 97917 03/03/16 VENT MGMT INPAT SUBQ DAY 92838 03/03/16 Internal Medicine Assmt/Plan - Assessment Assessment: ASSESSMENT: Anemia, which is severe, possibly secondary to a GI source versus hematuria from uti/sepsis, possible pneumonia, urinary tract infection, ventilator dependent respiratory failure, chronic hydrocephalus, dementia, decubitus ulcer, diabetes, obesity, Parkinson, leukocytosis, renal insufficiency, hyponatremia. - Plan Plan: PLAN: We will continue the patient on aggressive IV hydration and IV antibiotic. We will certainly give the patient vancomycin as well as Zosyn. We will hold the patient for blood transfusion. We will send for iron studies as well. We will discontinue aspirin as well as nonsteroidal anti-inflammatory drugs. We will continue to monitor the patient in ICU setting.
--- NOTE | 2018-05-12 19:22 | Consultation ---
DATE OF CONSULTATION: 05/11/2018 REFERRING PHYSICIAN: Dr. Garza. Thank you very much for this consultation. HISTORY OF PRESENT ILLNESS: The patient is an 82-year-old female known to me for many years, history of chronic respiratory failure ventilator dependent, history of CVA, diabetes, hypertension, who presented with abnormal labs test with very low hemoglobin of 6.5. The patient was told she is having hematuria as well. The patient was admitted for further treatment and management. PAST MEDICAL HISTORY: As above. SOCIAL HISTORY: [facility] resident. G-tube feeding. REVIEW OF SYSTEMS: Unable to obtain because of the patient's condition. PHYSICAL EXAMINATION: GENERAL: The patient is on a vent, not in acute distress. VITAL SIGNS: Temperature 99.6, pulse 98, respirations 16, blood pressure 128/40, saturation is 99%. HEENT: Atraumatic, normocephalic. Pupils are equal and reactive to light and accommodation. Ears, nose, and throat normal. NECK: Supple. No JVD. CHEST: There are good breath sounds. No wheezing or crackles. HEART: Regular rate and rhythm. No murmurs. ABDOMEN: Soft. EXTREMITIES: No edema. LABORATORY DATA: WBC 11.9, hemoglobin 6.5, hematocrit 20.3, platelets 303. Sodium 131, potassium 4.4, BUN 66, creatinine 1.4. UA is cloudy and positive for large blood and leukocyte esterase. IMPRESSION: An 82-year-old female with, 1. Anemia possibly due to the hematuria. 2. Urinary tract infection probably causing the hematuria. PLAN: 1. IV antibiotics. 2. Nebulizer treatment. 3. Blood transfusion. 4. Suggest Urology evaluation. Might need to have a Morfin with irrigation. We will follow up on the cultures and we will follow the patient you. Thank you very much for this consultation. JOB# [id number]
[2018-05-13] MEDS: INSULIN ASPART, RECOMBINANT 100 UNITS/ML SUBQ SCH ×4 (00:31→17:59)
[2018-05-13] MEDS: Sodium Chloride 0.9% 1,000 ML IV SCH ×3 (00:31→22:10)
[2018-05-13] MEDS: Albuterol/Ipratropium Neb 3 ML AERS HHN SCH ×4 (01:00→18:56)
[2018-05-13] MEDS: Piperacillin Sodium/Tazobact 2.25 GM in Sodium Chloride 0.9% 100 ML IV SCH ×3 (05:47→21:10)
[2018-05-13 06:33] LABS: HEMATOCRIT 22.4 % (41.0-60); MEAN CELL VOLUME 83.7 fl (81-100); MEAN CORPUSCULAR HEMOGLOBIN 27.4 pg (27.0-31.0); MEAN CORPUSCULAR HGB CONC 32.8 pg (28.0-36.0); MEAN PLATELET VOLUME 8.2 fl; PLATELET COUNT 289 Th/cmm (150-400); RED BLOOD COUNT 2.68 Mil/cmm (3.80-5.20); RED CELL DISTRIBUTION WIDTH 17.2 % (11.5-20.0); WHITE BLOOD COUNT 10.5 Th/cmm (4.8-10.8)
[2018-05-13 06:41] LABS: ANION GAP 15.4 (7.0-16.0); BUN - UREA NITROGEN 52 mg/dL (7-25); CALCIUM SERUM 8.6 mg/dL (8.6-10.3); CARBON DIOXIDE 23.3 mEq/L (21.0-31.0); CHLORIDE 102 mEq/L (98-107); CREATININE - SERUM 1.3 mg/dL (0.6-1.2); GLUCOSE 223 mg/dL (70-105); POTASSIUM SERUM 4.7 mEq/L (3.5-5.1); SODIUM SERUM 136 mEq/L (136-145)
[2018-05-13 06:46] LABS: HEMOGLOBIN 7.3 gm/dL (12-16)
[2018-05-13 07:55] LABS: BAND NEUTROPHILE 2 % (0-10); LYMPHOCYTE 8 % (20-50); MONOCYTE 6 % (2-10); NEUTROPHILS 84 % (40-80)
[2018-05-13] MEDS: Chlorhexidine Gluconate 0.12% 15mL Mouthwash MM SCH ×2 (08:00→20:45)
[2018-05-13 08:05] LABS: IRON LC 49 ug/dL (27-139); TIBC (LC) 264 ug/dL (250-450); UIBC 215 ug/dL (118-369)
[2018-05-13] MEDS: Ferrous Sulfate 300 MG/5 ML UDC GT SCH (09:32)
[2018-05-13] MEDS: Benztropine 1 MG TAB GT SCH ×2 (09:32→17:51)
[2018-05-13] MEDS: Lactobacillus Rhamnosus GG 15 Billion CFU CAP.SPRINK GT SCH (09:32)
[2018-05-13] MEDS: Multivitamin w/ Minerals Tab GT SCH (09:32)
[2018-05-13] MEDS: Levetiracetam 500 mg/5mL 5mL UDSyr *for ORAL USE ONLY GT SCH ×2 (09:33→21:10)
[2018-05-13] MEDS: INSULIN 70/30 100 UNITS/ML SUBQ SCH ×2 (09:38→21:45)
[2018-05-13] MEDS: Levothyroxine 0.1 Mg Tab GT SCH (09:44)
--- NOTE | 2018-05-13 10:01 | Internal Medicine Prog Note ---
Internal Medicine Subjective - Subjective Patient seen and examined:: with staff, chart reviewed Patient is:: asleep, non-verbal, non-interactive, eyes closed, in bed, congested Patient Complaints of:: congestion Per staff patient has:: no adverse event, no episodes of fall, tolerating meds Internal Medicine Objective - Results Result Diagrams: 05/13/18 04:10 05/13/18 04:10 Recent Labs: Laboratory Last Values WBC 10.5 Th/cmm (4.8-10.8) 05/13/18 04:10 RBC 2.68 Mil/cmm (3.80-5.20) L 05/13/18 04:10 Hgb 7.3 gm/dL (12-16) L* 05/13/18 04:10 Hct 22.4 % (41.0-60) L D 05/13/18 04:10 MCV 83.7 fl (81-100) 05/13/18 04:10 MCH 27.4 pg (27.0-31.0) 05/13/18 04:10 MCHC Differential 32.8 pg (28.0-36.0) 05/13/18 04:10 RDW 17.2 % (11.5-20.0) 05/13/18 04:10 Plt Count 289 Th/cmm (150-400) 05/13/18 04:10 MPV 8.2 fl 05/13/18 04:10 Add Manual Diff YES 05/13/18 04:10 Neutrophils % ACIDITY TESTER 05/13/18 04:10 Band Neutrophils % 2 % (0-10) 05/13/18 04:10 Lymphocytes % ACIDITY TESTER 05/13/18 04:10 Monocytes % ACIDITY TESTER 05/13/18 04:10 Eosinophils % ACIDITY TESTER 05/13/18 04:10 Basophils % ACIDITY TESTER 05/13/18 04:10 Neutrophils (Manual) 84 % (40-80) H 05/13/18 04:10 Lymphocytes 8 % (20-50) L 05/13/18 04:10 Monocytes 6 % (2-10) 05/13/18 04:10 Eosinophils 2 % (0-5) 05/12/18 07:10 Basophils 0 % (0-3) 05/12/18 07:10 Sodium 136 mEq/L (136-145) 05/13/18 04:10 Potassium 4.7 mEq/L (3.5-5.1) 05/13/18 04:10 Chloride 102 mEq/L (98-107) 05/13/18 04:10 Carbon Dioxide 23.3 mEq/L (21.0-31.0) 05/13/18 04:10 Anion Gap 15.4 (7.0-16.0) 05/13/18 04:10 BUN 52 mg/dL (7-25) H 05/13/18 04:10 Creatinine 1.3 mg/dL (0.6-1.2) H 05/13/18 04:10 Est GFR ( Amer) TNP 05/13/18 04:10 Est GFR (Non-Af Amer) TNP 05/13/18 04:10 BUN/Creatinine Ratio 40.0 05/13/18 04:10 Glucose 223 mg/dL (70-105) H 05/13/18 04:10 POC Glucose 200 MG/DL (70 - 105) H 05/13/18 05:49 Whole Bld Lactic Acid 1.45 mmol/L (0.60-1.99) 05/11/18 15:45 Calcium 8.6 mg/dL (8.6-10.3) 05/13/18 04:10 Phosphorus 3.9 mg/dL (2.5-5.0) 05/11/18 15:45 Magnesium 2.7 mg/dL (1.9-2.7) 05/11/18 15:45 Iron 49 ug/dL (27-139) 05/12/18 07:10 TIBC 264 ug/dL (250-450) 05/12/18 07:10 Iron Saturation 19 % (15-55) 05/12/18 07:10 Unsaturated IBC 215 ug/dL (118-369) 05/12/18 07:10 Total Bilirubin 0.3 mg/dL (0.3-1.0) 05/11/18 15:45 AST 13 U/L (13-39) 05/11/18 15:45 ALT 10 U/L (7-52) 05/11/18 15:45 Alkaline Phosphatase 81 U/L (34-104) 05/11/18 15:45 Ammonia 59 umol/L (16-53) H 05/13/18 04:10 B-Natriuretic Peptide 68.1 pg/mL (5.0-100.0) 05/12/18 07:10 Total Protein 8.3 gm/dL (6.0-8.3) 05/11/18 15:45 Albumin 3.6 gm/dL (3.7-5.3) L 05/11/18 15:45 Globulin 4.7 gm/dL 05/11/18 15:45 Albumin/Globulin Ratio 0.8 (1.0-1.8) L 05/11/18 15:45 TSH 1.25 uIU/ml (0.34-5.60) 05/11/18 15:45 Urine Source CATH 05/11/18 16:50 Urine Color BROWN 05/11/18 16:50 Urine Clarity CLOUDY (CLEAR) H 05/11/18 16:50 Urine pH 7.0 (4.6 - 8.0) 05/11/18 16:50 Ur Specific [place] 1.010 (1.005-1.030) 05/11/18 16:50 Urine Protein 100 mg/dL (NEGATIVE) H 05/11/18 16:50 Urine Glucose (UA) NEGATIVE mg/dL (NEGATIVE) 05/11/18 16:50 Urine Ketones NEGATIVE mg/dL (NEGATIVE) 05/11/18 16:50 Urine Blood LARGE (NEGATIVE) H 05/11/18 16:50 Urine Nitrate NEGATIVE (NEGATIVE) 05/11/18 16:50 Urine Bilirubin SMALL (NEGATIVE) H 05/11/18 16:50 Urine Urobilinogen 0.2 E.U./dL (0.2 - 1.0) 05/11/18 16:50 Ur Leukocyte Esterase LARGE (NEGATIVE) H 05/11/18 16:50 Urine RBC 25-50 /hpf (0-5) H 05/11/18 16:50 Urine WBC 50-100 /hpf (0-5) H 05/11/18 16:50 Ur Epithelial Cells MODERATE /lpf (FEW) 05/11/18 16:50 Urine Bacteria 4+ /hpf (NONE SEEN) H 05/11/18 16:50 Urine Opiates Screen POSITIVE (NEGATIVE) H 05/11/18 16:50 Urine Methadone Screen NEGATIVE (NEGATIVE) 05/11/18 16:50 Ur Barbiturates Screen NEGATIVE (NEGATIVE) 05/11/18 16:50 Ur Tricyclics Screen NEGATIVE (NEGATIVE) 05/11/18 16:50 Ur Phencyclidine Scrn NEGATIVE (NEGATIVE) 05/11/18 16:50 Amphetamines Screen NEGATIVE (NEGATIVE) 05/11/18 16:50 U Methamphetamines Scrn NEGATIVE (NEGATIVE) 05/11/18 16:50 U Benzodiazepines Scrn NEGATIVE (NEGATIVE) 05/11/18 16:50 U Cocaine Metab Screen NEGATIVE (NEGATIVE) 05/11/18 16:50 U Cannabinoids Screen NEGATIVE (NEGATIVE) 05/11/18 16:50 Blood Type A POSITIVE 05/11/18 16:48 Rho(D) Type Cancelled 05/11/18 16:48 Antibody Screen NEGATIVE 05/11/18 16:48 Crossmatch See Detail 05/11/18 16:48 BBK History Checked Cancelled 05/11/18 16:48 - Physical Exam Vitals and I&O: Vital Signs Temp 99.0 F 05/13/18 06:00 Pulse 89 05/13/18 09:20 Resp 16 05/13/18 06:00 BP 114/53 05/13/18 06:00 Pulse Ox 99 05/13/18 09:20 Intake & Output 05/12/18 05/13/18 05/13/18 18:59 06:59 18:59 Intake Total 620 1362.333 Output Total 1450 1000 Balance -830 362.333 Weight (lbs) 78.018 kg 78.744 kg Intake: Intake, IV Amount 100 397.333 Piperacillin Sodium/ 100 100 Tazobact 2.25 gm In Sodium Chloride 0.9% 100 ml @ 100 mls/hr IV Q8HR [facility] Rx#:[id number] Sodium Chloride 0.9% 1, 297.333 000 ml @ 80 mls/hr IV . [id number] [facility] Rx#:[id number] Tube Feeding 520 765 Other 200 Output: Urine 1450 1000 Other: # Bowel Movements 0 Weight Source Bedscale Bedscale Active Medications: Current Medications Acetaminophen (Tylenol 650mg/20.3ml Suspension) 650 mg GT Q6HR PRN PRN Reason: Mild Pain or Fever >101 Stop: 07/10/18 19:13 Last Admin: 05/11/18 21:39 Dose: 650 mg Acetaminophen/Hydrocodone Bitart ([place] 5mg/325mg) 1 tab GT Q6H PRN PRN Reason: Severe Pain Stop: 07/10/18 19:13 Acetylcysteine (Mucomyst 20%) 2 ml HHN Q6HRT [facility] Stop: 07/11/18 00:59 Last Admin: 05/13/18 07:10 Dose: 2 ml Albuterol Sulfate (Albuterol 2.5mg/3ml Neb Ud) 2.5 mg HHN Q2HRT PRN PRN Reason: Shortness of Breath or Wheeze Stop: 07/10/18 19:22 Albuterol/Ipratropium (Duoneb Neb) 3 ml HHN Q6HRT [facility] Stop: 07/11/18 00:59 Last Admin: 05/13/18 07:09 Dose: 3 ml Albuterol/Ipratropium (Duoneb Neb) 3 ml HHN Q2HRT PRN PRN Reason: Wheezing Stop: 07/10/18 19:13 Amlodipine Besylate (Norvasc) 5 mg GT DAILY [facility] Stop: 07/11/18 08:59 Last Admin: 05/12/18 09:27 Dose: 5 mg Benztropine Mesylate (Cogentin) 1 mg GT BID [facility] Stop: 07/11/18 08:59 Last Admin: 05/13/18 09:32 Dose: 1 mg Carbidopa/Levodopa (Sinemet 25mg-100 Mg) 1 tab GT DAILY [facility] Stop: 07/11/18 08:59 Last Admin: 05/13/18 09:32 Dose: 1 tab Chlorhexidine Gluconate (Peridex) 15 ml MM 0800,2000 [facility] Stop: 07/10/18 19:59 Last Admin: 05/12/18 20:40 Dose: 15 ml Clonazepam (Klonopin) 0.5 mg GT BID [facility]; Protocol Stop: 07/11/18 08:59 Last Admin: 05/13/18 09:32 Dose: 0.5 mg Docusate Sodium (Colace) 250 mg PO BID [facility] Stop: 07/11/18 08:59 Last Admin: 05/13/18 09:32 Dose: 250 mg Ferrous Sulfate (Iron) 330 mg GT DAILY [facility] Stop: 07/11/18 08:59 Last Admin: 05/13/18 09:32 Dose: 330 mg Gemfibrozil (Lopid) 600 mg GT BID [facility] Stop: 07/11/18 08:59 Last Admin: 05/13/18 09:33 Dose: 600 mg Sodium Chloride (Nacl 0.9%) 1,000 mls @ 80 mls/hr IV .[id number] [facility] Stop: 07/10/18 19:29 Last Admin: 05/13/18 00:31 Dose: 80 mls/hr Piperacillin Sod/Tazobactam (Sod 2.25 gm/ Sodium Chloride) 100 mls @ 100 mls/ hr IV Q8HR [facility] Stop: 07/10/18 20:59 Last Admin: 05/13/18 05:47 Dose: 100 mls/hr Insulin Aspart (Novolog) 0 units SUBQ Q6H [facility]; Protocol Stop: 07/11/18 00:00 Last Admin: 05/13/18 05:47 Dose: 2 units Insulin Human Isoph/Insulin Regular (Novolin 70/30) 22 units SUBQ HS [facility]; Protocol Stop: 07/10/18 20:59 Last Admin: 05/12/18 20:58 Dose: 22 units Insulin Human Isoph/Insulin Regular (Novolin 70/30) 45 units SUBQ DAILY [facility]; Protocol Stop: 07/11/18 08:59 Last Admin: 05/13/18 09:38 Dose: 45 units Ipratropium [place] (Atrovent Neb 0.5mg/2.5ml) 0.5 mg HHN Q2HRT PRN PRN Reason: Shortness of Breath or Wheeze Stop: 07/10/18 19:22 Lactobacillus Rhamnosus (Culturelle 15b) 1 each GT DAILY [facility] Stop: 07/11/18 08:59 Last Admin: 05/13/18 09:32 Dose: 1 each Lactulose (Cephulac) 20 gm GT PRN PRN PRN Reason: BOWEL MANAGEMENT Stop: 07/10/18 19:13 Levetiracetam (Keppra) 1,000 mg GT Q12HR [facility] Stop: 07/11/18 08:59 Last Admin: 05/13/18 09:33 Dose: 1,000 mg Levothyroxine Sodium (Synthroid) 0.1 mg GT QDAC [facility] Stop: 07/11/18 07:29 Last Admin: 05/13/18 09:44 Dose: 0.1 mg Lorazepam (Ativan) 1 mg IV Q4H PRN; Protocol PRN Reason: Seizure Stop: 07/10/18 19:22 Metoclopramide HCl (Reglan) 10 mg GT Q8HR [facility] Stop: 07/12/18 12:59 Miscellaneous (Calcium Alginate [Juan]) 1 each TP DAILY [facility] Stop: 07/11/18 08:59 Miscellaneous (Collagenase Clostridium Hist. [Santyl]) 1 appl TP DAILY [facility] Stop: 07/11/18 08:59 Miscellaneous (Petrolatum,White/Lanolin [Vitamin A And D Ointment]) 113 gm TP DAILY [facility] Stop: 07/11/18 08:59 Ondansetron HCl (Zofran) 4 mg IV Q8H PRN PRN Reason: Nausea / Vomiting Stop: 07/10/18 19:23 Pantoprazole Sodium (Protonix) 40 mg IVP BID [facility] Stop: 07/11/18 08:59 Last Admin: 05/13/18 09:32 Dose: 40 mg Simvastatin (Zocor) 20 mg PO HS [facility]; Protocol Stop: 07/10/18 20:59 Last Admin: 05/12/18 20:58 Dose: 20 mg Sucralfate (Carafate) 1 gm GT QID [facility] Stop: 07/10/18 20:59 Last Admin: 05/13/18 09:32 Dose: 1 gm Zinc Sulfate (Zinc Sulfate) 220 mg GT DAILY [facility] Stop: 07/11/18 08:59 Last Admin: 05/13/18 09:32 Dose: 220 mg General: congested, demented, obtunded HEENT: NC/AT, PERRLA Neck: Supple, No JVD, No LAD, + trach, deformity Lungs: congested, rales, ronchi Cardiovascular: RRR, Normal S1, Normal S2, with murmur Abdomen: soft, globular, +GT, positive bowel sound Extremities: excoriation, contracture, deformity Neurological: no change, unable to follow command, bedbound - Procedures Procedures: Procedures Procedure Code Date AIRWAYS SURGICAL PROCEDURE 45885 03/03/16 BLOOD TRANSFUSION SERVICE 58696 09/27/17 CHANGE FEEDING DEVICE IN UP INTEST TRACT, RETAIL FIELD SUPERVISOR APPROACH [id number] 12/10/16 CHANGE GASTROSTOMY TUBE 90904 06/06/13 CONTINUOUS INVASIVE MECHANICAL VENTILATION <96 CONSEC HRS 96.71 02/02/13 CONTINUOUS INVASIVE MECHANICAL VENTILATION =/>96 CONSEC HRS 96.72 06/06/13 [place] [address] 03/03/16 IMMUNIZATION ADMIN 37983 03/03/16 INFLUENZA VACCINATION 99.52 02/02/13 INSERT NON-TUNNEL CV CATH 31228 03/03/16 INSERTION OF INFUSION DEV INTO SUP VENA CAVA, PERC APPROACH [id number] 03/03/16 INSJ PICC 5 YR+ W/O IMAGING 37936 02/02/13 INTRODUCTION OF SERUM/TOX/VACCINE INTO MUSCLE, PERC APPROACH [id number] 03/03/16 OTHER GASTROSTOMY 43.19 06/03/10 REPLACE GASTROSTOMY TUBE 97.02 06/06/13 RESPIRATORY VENTILATION, GREATER THAN 96 CONSECUTIVE HOURS [id number] 09/27/17 TRANSFUSE NONAUT RED BLOOD CELLS IN PERIPH VEIN, PERC 27516O2 09/27/17 VACCINATION NEC 99.55 02/02/13 VENOUS CATHETERIZATION NEC 38.93 02/02/13 VENT MGMT INPAT INIT DAY 86160 03/03/16 VENT MGMT INPAT SUBQ DAY 03708 03/03/16 Internal Medicine Assmt/Plan - Assessment Assessment: ASSESSMENT: Anemia, which is severe, possibly secondary to a GI source versus hematuria from uti/sepsis, possible pneumonia, urinary tract infection, ventilator dependent respiratory failure, chronic hydrocephalus, dementia, decubitus ulcer, diabetes, obesity, Parkinson, leukocytosis, renal insufficiency, hyponatremia. - Plan Plan: PLAN: We will continue the patient on aggressive IV hydration and IV antibiotic. We will certainly give the patient vancomycin as well as Zosyn. We will hold the patient for blood transfusion. We will send for iron studies as well. We will discontinue aspirin as well as nonsteroidal anti-inflammatory drugs. We will continue to monitor the patient in ICU setting. Nutritional Asmnt/Malnutr-PDOC - Dietary Evaluation Malnutrition Findings (Please click <Entered> for more info): Nutritional Asmnt/Malnutrition Start: 05/12/18 14: 39 Text: Status: Complete Freq: Protocol: Document 05/12/18 14:39 RHAQUE (Rec: 05/12/18 14:59 RHAQUE [id number]) Nutritional Asmnt/Malnutrition Patient General Information Nutritional Screening High Risk Consult Diagnosis UTI, GI bleed Pertinent Medical Hx/Surgical Hx Ventilator dependent Resp failure, Parkinson's, Seizure, Dementia, Chronic Hydrocephalus w CHEMICAL PROCESSOR shunt, DM, Decubitus Ulcer, Subjective Information Consult received for Blood Glucose 233 with Hx of DM while on TF. Pt is trached to a ventilator. Current TF provides 1300ml/day volume, 1560 kcal/day, 78g Protein/ day. 1047 ml water total. Current Diet Order/ Nutrition Support Tube feeding Glucerna 1.2 65ml /hr x 20hrs Patient / S.O Not Indicated Pertinent Medications Docusate, Gemfibrozil, Insulin Aspart, Insulin Novolin, Lactulose, Synthroid, Metoclopramide, Ondansetron, Simvastatin Pertinent Labs (05/12) BUN 65, Na+ 135, Gluc 214, POC Gluc 241 Nutritional Hx/Data Height 1.63 m Height (Calculated Centimeters) 162.6 Current Weight (lbs) 78.018 kg Weight (Calculated Kilograms) 78.0 Weight (Calculated Grams) 38101.9 [place] Body Weight 120 % [place] Body Weight 135 Body Mass Index (BMI) 29.5 GI Symptoms Last BM No Noted B.M. Cultural/Ethnic/Holiness Belief None indicated Skin Integrity/Comment: Germán Score 12. On Nursing flowsheet, pressure ulcer on coccyx noted. No wound care note. Unknown stage. Current %PO Negligible < 25% Estimated Nutritional Goals BEE in Kcals: Adj wt of IBW Calories/Kcals/Kg 25-30 Kcals Calculated 5340-2723 Protein: Adj wt of IBW Protein g/k.2-1.5 Protein Calculated 72-90 Fluid: ml 5737-0570 Nutritional Problem 1. Problem Problem Altered Nutritional related Lab values Etiology Uncontrolled hyperglycemia aeb Signs/Symptoms: (05/12) Gluc 214, POC Gluc 241 Malnutrition Alert Is there a minimum of two criteria No selected? Query Text:Check all the applicable criteria. A minimum of two criteria are recommended for diagnosis of either severe or non-severe malnutrition. Malnutrition Related to Morbid Obesity Malnutrition related to morbid obesity No Intervention/Recommendation Comments Continue Tube feeding as ordered. Pt already on DM tube feeding formula. MD to modify insulin regimen as needed for optimal glycemic control. Will modify nutrient needs based on wound care notes. Expected Outcomes/Goals Expected Outcomes/Goals 1. Labs WNL 2. Tube feeding continue to be tolerated 3. F/U in 2-3 days as HR (05/14 -)
[2018-05-13] MEDS ORDERED: Amikacin 250 mg/mL 2mL Vial IV ONE (20:53)
[2018-05-13] MEDS ORDERED: AMIKACIN IV ONE (21:00)
[2018-05-13] MEDS ORDERED: SODIUM CHLORIDE 0.9% IV ONE (21:00)
[2018-05-14] MEDS: INSULIN ASPART, RECOMBINANT 100 UNITS/ML SUBQ SCH ×4 (00:44→17:58)
[2018-05-14] MEDS: Albuterol/Ipratropium Neb 3 ML AERS HHN SCH ×4 (00:55→19:09)
--- NOTE | 2018-05-14 04:44 | Consultation ---
DATE OF CONSULTATION: 05/13/2018 INPATIENT GI CONSULTATION CONSULTING PHYSICIAN: Dr. Garza. REASON FOR CONSULTATION: Anemia. HISTORY OF PRESENT ILLNESS: The patient is an 82-year-old female with past medical history significant for ventilator dependence, previous history of pneumonia, Parkinson's dementia and disease, seizure disorder, chronic hydrocephalus with a NECKTIE MAKER shunt, type 2 diabetes, admitted to the hospital with a low blood count. Apparently, the patient was found to have low hemoglobin in her nursing facility and for this reason that she was transferred to the acute care hospital; however, there is no history from the nursing facility or from her nurses here that the patient is having any black-colored stool. Additionally, flushing the G-tube only reveals tube feeding type solution coming from the G-tube itself. The patient has been having odilon blood per her urine over the past at least 24 hours. It is no longer and continues to have hematuria even after flushing the Morfin catheter. Her hemoglobin did go up after transfusion on admission to the hospital, but is back down to 7.3 today. She is not able to participate in the interview or give me any other history. PAST MEDICAL HISTORY: Parkinson's disease, seizure disorder, dysphagia with a G-tube, tracheostomy, hydrocephalus with a NECKTIE MAKER shunt. PAST SURGICAL HISTORY: Placement of a G-tube and tracheostomy, NECKTIE MAKER shunt. FAMILY HISTORY: Noncontributory. SOCIAL HISTORY: The patient lives at a nursing facility. No documented history of illicit drug use or alcoholism. ALLERGIES: No known drug allergies. REVIEW OF SYSTEMS: Not possible given the patient is not able to participate in the interview. CURRENT MEDICATIONS: Include Tylenol, acetylcysteine, albuterol, amlodipine, Cogentin, Sinemet, Klonopin, Colace, iron, gemfibrozil, insulin, lactobacillus, Keppra, Synthroid, Ativan, Reglan, Zofran, Protonix q.12 dosing, Zocor, Zinc. PHYSICAL EXAMINATION: VITAL SIGNS: Blood pressure is 114/53, pulse 78 beats per minute, temperature 99.0, oxygenation 99% on tracheostomy support. GENERAL: The patient is lying on her back. She is at 30 degrees. She is alert and oriented x 0. There is no apparent distress. HEAD, EYES, EARS, NOSE AND THROAT: Normocephalic, atraumatic. Pupils are equal and reactive to light. Extraocular muscles appear to be intact although the patient does not track. There are dry mucous membranes. NECK: There is a midline tracheostomy in place. CHEST: Mechanical breath sounds bilaterally. CARDIOVASCULAR: S1, S2 are present, regular rate and rhythm. ABDOMEN: Obese, soft on palpation. No obvious tenderness. No guarding or rebound. EXTREMITIES: 1+ pitting edema bilaterally. Pulses are not present. SKIN: There is no obvious jaundice. LABORATORY DATA: White blood cell count 10.5, hemoglobin 7.3, and platelet count is 289. Sodium is 136, BUN is 52, creatinine is 1.3. IMAGING: A KUB was performed and showed a nonspecific bowel gas pattern. IMPRESSION: This is an 82-year-old female with history of hydrocephalus, Parkinson's disease, dysphagia with a G-tube, respiratory failure with a permanent tracheostomy, admitted to the hospital with anemia. 1. Anemia. 2. Hematuria. 3. Parkinson's disease. 4. NECKTIE MAKER shunt problem. 5. Type 2 diabetes. 6. History of seizure disorder. 7. Dysphagia with G-tube. 8. Respiratory failure with tracheostomy. DISCUSSION: At this point, I do not feel that the patient is having an active GI bleed as she has come down several grams of hemoglobin without any overt bleeding at all and no melena and no hematochezia. In fact, flushing the G-tube only reveals tube feed formula. There is another overt source of bleeding going on, which is odilon blood in the urine, which I think is a much more likely source of her bleeding at the current time. Thus, we will hold off on planning for any sort of endoscopy unless the patient declares herself having a GI bleed with any sort of overt bleeding process. We will continue the Protonix q.12 dosing in case there is a peptic ulcer that is being missed, although I feel it is probably not. I suggest Urology consultation. RECOMMENDATIONS: 1. We will hold off on endoscopy as stated above. 2. PPI q.12 dosing. 3. We will adjust the Reglan q.8 dosing to avoid potential side effects. 4. Tube feeds as tolerated. 5. If there is any melena or overt GI bleeding, I have asked the nurses to call me and we will schedule an endoscopy. 6. Suggest Urology evaluation for the odilon hematuria, which I think is the more likely source of her bleeding. Thank you for allowing me to participate in her care. Please call with any further questions. JOB# [id number]
[2018-05-14 04:48] LABS: RED CELL DISTRIBUTION WIDTH 16.9 % (11.5-20.0)
[2018-05-14 04:59] LABS: HEMATOCRIT 21.9 % (41.0-60); MEAN CELL VOLUME 81.9 fl (81-100); MEAN CORPUSCULAR HEMOGLOBIN 26.4 pg (27.0-31.0); MEAN CORPUSCULAR HGB CONC 32.2 pg (28.0-36.0); MEAN PLATELET VOLUME 7.4 fl; PLATELET COUNT 286 Th/cmm (150-400); RED BLOOD COUNT 2.68 Mil/cmm (3.80-5.20)
[2018-05-14 05:28] LABS: ANION GAP 15.1 (7.0-16.0); BUN - UREA NITROGEN 50 mg/dL (7-25); CALCIUM SERUM 8.4 mg/dL (8.6-10.3); CARBON DIOXIDE 22.1 mEq/L (21.0-31.0); CHLORIDE 106 mEq/L (98-107); CREATININE - SERUM 1.3 mg/dL (0.6-1.2); GLUCOSE 165 mg/dL (70-105); POTASSIUM SERUM 4.2 mEq/L (3.5-5.1); SODIUM SERUM 139 mEq/L (136-145)
[2018-05-14] MEDS: Piperacillin Sodium/Tazobact 2.25 GM in Sodium Chloride 0.9% 100 ML IV SCH ×3 (05:30→20:45)
[2018-05-14 05:33] LABS: HEMOGLOBIN 7.1 gm/dL (12-16)
[2018-05-14 07:29] LABS: BAND NEUTROPHILE 2 % (0-10); LYMPHOCYTE 12 % (20-50); MONOCYTE 6 % (2-10); NEUTROPHILS 80 % (40-80); WHITE BLOOD COUNT 8.1 Th/cmm (4.8-10.8)
--- NOTE | 2018-05-14 08:03 | Diagnostic Imaging Report ---
Exam: Renal ultrasound HISTORY: Hematuria Prior exam: None Findings: Real-time ultrasound summation kidneys performed multiple planes. Incidentally noted cholelithiasis. The study demonstrates normal echogenicity right kidney without obstructive uropathy or nephrolithiasis. The right kidney measures 10.5 x 4.7 x 5.8 cm diameter. The left kidney demonstrates moderate hydronephrosis. The left kidney measures 11.2 x 6.8 x 6.4 cm. There is no evidence for nephrolithiasis. Urinary bladder is intact with a Morfin catheter. IMPRESSION: Hydronephrosis left kidney, no evidence of for nephrolithiasis. Clinical correlation recommended. Urinary bladder contains a Morfin catheter. Cholelithiasis.
[2018-05-14] MEDS: Lactobacillus Rhamnosus GG 15 Billion CFU CAP.SPRINK GT SCH (09:30)
[2018-05-14] MEDS: Ferrous Sulfate 300 MG/5 ML UDC GT SCH (09:30)
[2018-05-14] MEDS: Levothyroxine 0.1 Mg Tab GT SCH (09:30)
[2018-05-14] MEDS: Benztropine 1 MG TAB GT SCH ×2 (09:31→16:38)
[2018-05-14] MEDS: Levetiracetam 500 mg/5mL 5mL UDSyr *for ORAL USE ONLY GT SCH ×2 (09:31→20:45)
[2018-05-14] MEDS: Multivitamin w/ Minerals Tab GT SCH (09:31)
[2018-05-14] MEDS: Chlorhexidine Gluconate 0.12% 15mL Mouthwash MM SCH ×2 (09:32→20:48)
[2018-05-14] MEDS: INSULIN 70/30 100 UNITS/ML SUBQ SCH ×2 (09:34→20:46)
[2018-05-14] MEDS ORDERED: Amikacin 500 mg in D5W 100mL (Q24HR) IV SCH (15:00)
--- NOTE | 2018-05-14 15:41 | Consultation ---
DATE OF CONSULTATION: 05/14/2018 SEEN FOR: Hydronephrosis and gross hematuria. The patient is an 82-year-old was admitted with "GI bleed" and may be hematuria as well. Details not clear. She comes here from a longterm facility with multiple medical issues including a DNR status. She is an 82-year-old ventilator dependent, G-tube dependent and may be Morfin catheter dependent, but details are still being investigated. She has multiple medical problems and we do not know if the hematuria is a first time occurrence at this point. After admission, Morfin was placed in the ER then irrigated in the ICU and this morning we changed her to a larger caliber and irrigated it more vigorously with improvement in the color. PAST MEDICAL HISTORY: Positive for respiratory failure and ventilator dependency through her tracheostomy. She has a history of dementia, seizures and Parkinsonism. She also had a hydrocephalus and a PATIENT SERVICES SPECIALIST shunt. Has history of diabetes. She has decubitus ulcers in the past and now she has a profound anemia with hemoglobin of 6.2. PAST SURGICAL HISTORY: PATIENT SERVICES SPECIALIST shunt, G-tube placement and tracheostomy that we know of. ALLERGIES: None. HOME MEDICATIONS: Reglan, baby aspirin, Juan, Colace, Pepcid, Lopid, Criders, insulin, lactulose, Synthroid, Zestril, vitamins, Zocor, albuterol inhaler, Tylenol, Mucomyst, Keppra, Zyloprim, Norvasc, Cogentin, carbidopa or Sinemet, Klonopin, clonidine, iron, Lasix, Glucotrol, Protonix, Carafate and Ultram. REVIEW OF SYSTEMS: She came in with this history of GI bleed, again details are not known whether there was blood noted in the stools or in the G-tube. There is no seizure activity noted here. No chest pain or compromise in her respiratory function. The ventilator settings have been stable. There is no vomiting. She has tolerated the G-tube feeding. No diarrhea. There is odilon hematuria, red colored urine with few small clots on irrigation. She is noncommunicative and once again DNR status as well. She does have decubitus ulcers as well. PHYSICAL EXAMINATION: GENERAL: She is lethargic. VITAL SIGNS: Temperature 98.8, heart rate 81, blood pressure 131/64. HEAD AND NECK: Tracheostomy present. No jaundice, no thyroid mass. CHEST: Symmetrical. LUNGS: Coarse breath sounds, occasional rhonchi. No rales. HEART: Heart sounds normal sinus rhythm with systolic murmur. ABDOMEN: Obese, but soft, nontender with G-tube functional. No masses or hernia palpable. Morfin catheter with cranberry-colored urine after being changed recently. Morfin catheter apparently was placed here and she did not have it in the longterm, which might explain the UTI and hydronephrosis. EXTREMITIES: 1+ edema. NEUROLOGIC: Cannot be tested very well. LABORATORY DATA: White count 8.1, hemoglobin 7.1, it was 8.5 on admission and it has come up without any transfusions. Platelets 286. Electrolytes normal. BUN 50, creatinine 1.3 and stable, glucose 161, 176 and 143, calcium 8.4, toxic screen positive for opiates, otherwise negative. Ultrasound shows the left hydronephrosis as mentioned earlier. KUB is unremarkable. The hydronephrosis is moderate. Chest x-ray showed no acute changes. IMPRESSION: Gross hematuria from chronic urinary retention and urinary tract infection as is the hydronephrosis. The urine culture is growing Klebsiella and Proteus, but the blood cultures are negative. Recommend indwelling Morfin indefinitely as the patient will develop repeated infections and bleeding and worsening hydronephrosis if the bladder is not drained well. Morfin to be irrigated frequently as we are doing now, but after discharge could be once a day. Morfin to be changed every 3 weeks and kept free of infection and free of contamination. This should be sufficient to prevent significant complications. JOB# [id number]
[2018-05-14] MEDS: Amikacin 500 mg in D5W 100mL (Q24HR) IV SCH (15:44)
--- NOTE | 2018-05-14 16:15 | Internal Medicine Prog Note ---
Internal Medicine Subjective - Subjective Patient seen and examined:: with staff, chart reviewed Patient is:: asleep, non-verbal, non-interactive, eyes closed, in bed, congested Patient Complaints of:: congestion Per staff patient has:: no adverse event, no episodes of fall, tolerating meds Internal Medicine Objective - Results Result Diagrams: 05/14/18 04:35 05/14/18 04:35 Recent Labs: Laboratory Last Values WBC 8.1 Th/cmm (4.8-10.8) 05/14/18 04:35 RBC 2.68 Mil/cmm (3.80-5.20) L 05/14/18 04:35 Hgb 7.1 gm/dL (12-16) L* 05/14/18 04:35 Hct 21.9 % (41.0-60) L 05/14/18 04:35 MCV 81.9 fl (81-100) 05/14/18 04:35 MCH 26.4 pg (27.0-31.0) L 05/14/18 04:35 MCHC Differential 32.2 pg (28.0-36.0) 05/14/18 04:35 RDW 16.9 % (11.5-20.0) 05/14/18 04:35 Plt Count 286 Th/cmm (150-400) 05/14/18 04:35 MPV 7.4 fl 05/14/18 04:35 Add Manual Diff YES 05/14/18 04:35 Neutrophils % BURGLARY INVESTIGATOR 05/13/18 04:10 Band Neutrophils % 2 % (0-10) 05/14/18 04:35 Lymphocytes % BURGLARY INVESTIGATOR 05/13/18 04:10 Monocytes % BURGLARY INVESTIGATOR 05/13/18 04:10 Eosinophils % BURGLARY INVESTIGATOR 05/13/18 04:10 Basophils % BURGLARY INVESTIGATOR 05/13/18 04:10 Neutrophils (Manual) 80 % (40-80) 05/14/18 04:35 Lymphocytes 12 % (20-50) L 05/14/18 04:35 Monocytes 6 % (2-10) 05/14/18 04:35 Eosinophils 2 % (0-5) 05/12/18 07:10 Basophils 0 % (0-3) 05/12/18 07:10 Sodium 139 mEq/L (136-145) 05/14/18 04:35 Potassium 4.2 mEq/L (3.5-5.1) 05/14/18 04:35 Chloride 106 mEq/L (98-107) 05/14/18 04:35 Carbon Dioxide 22.1 mEq/L (21.0-31.0) 05/14/18 04:35 Anion Gap 15.1 (7.0-16.0) 05/14/18 04:35 BUN 50 mg/dL (7-25) H 05/14/18 04:35 Creatinine 1.3 mg/dL (0.6-1.2) H 05/14/18 04:35 Est GFR ( Amer) TNP 05/14/18 04:35 Est GFR (Non-Af Amer) TNP 05/14/18 04:35 BUN/Creatinine Ratio 38.5 05/14/18 04:35 Glucose 165 mg/dL (70-105) H 05/14/18 04:35 POC Glucose 161 MG/DL (70 - 105) H 05/14/18 13:29 Whole Bld Lactic Acid 1.45 mmol/L (0.60-1.99) 05/11/18 15:45 Calcium 8.4 mg/dL (8.6-10.3) L 05/14/18 04:35 Phosphorus 3.9 mg/dL (2.5-5.0) 05/11/18 15:45 Magnesium 2.7 mg/dL (1.9-2.7) 05/11/18 15:45 Iron 49 ug/dL (27-139) 05/12/18 07:10 TIBC 264 ug/dL (250-450) 05/12/18 07:10 Iron Saturation 19 % (15-55) 05/12/18 07:10 Unsaturated IBC 215 ug/dL (118-369) 05/12/18 07:10 Total Bilirubin 0.3 mg/dL (0.3-1.0) 05/11/18 15:45 AST 13 U/L (13-39) 05/11/18 15:45 ALT 10 U/L (7-52) 05/11/18 15:45 Alkaline Phosphatase 81 U/L (34-104) 05/11/18 15:45 Ammonia 59 umol/L (16-53) H 05/13/18 04:10 B-Natriuretic Peptide 84.7 pg/mL (5.0-100.0) 05/14/18 04:35 Total Protein 8.3 gm/dL (6.0-8.3) 05/11/18 15:45 Albumin 3.6 gm/dL (3.7-5.3) L 05/11/18 15:45 Globulin 4.7 gm/dL 05/11/18 15:45 Albumin/Globulin Ratio 0.8 (1.0-1.8) L 05/11/18 15:45 TSH 1.25 uIU/ml (0.34-5.60) 05/11/18 15:45 Urine Source CATH 05/11/18 16:50 Urine Color BROWN 05/11/18 16:50 Urine Clarity CLOUDY (CLEAR) H 05/11/18 16:50 Urine pH 7.0 (4.6 - 8.0) 05/11/18 16:50 Ur Specific [place] 1.010 (1.005-1.030) 05/11/18 16:50 Urine Protein 100 mg/dL (NEGATIVE) H 05/11/18 16:50 Urine Glucose (UA) NEGATIVE mg/dL (NEGATIVE) 05/11/18 16:50 Urine Ketones NEGATIVE mg/dL (NEGATIVE) 05/11/18 16:50 Urine Blood LARGE (NEGATIVE) H 05/11/18 16:50 Urine Nitrate NEGATIVE (NEGATIVE) 05/11/18 16:50 Urine Bilirubin SMALL (NEGATIVE) H 05/11/18 16:50 Urine Urobilinogen 0.2 E.U./dL (0.2 - 1.0) 05/11/18 16:50 Ur Leukocyte Esterase LARGE (NEGATIVE) H 05/11/18 16:50 Urine RBC 25-50 /hpf (0-5) H 05/11/18 16:50 Urine WBC 50-100 /hpf (0-5) H 05/11/18 16:50 Ur Epithelial Cells MODERATE /lpf (FEW) 05/11/18 16:50 Urine Bacteria 4+ /hpf (NONE SEEN) H 05/11/18 16:50 Urine Opiates Screen POSITIVE (NEGATIVE) H 05/11/18 16:50 Urine Methadone Screen NEGATIVE (NEGATIVE) 05/11/18 16:50 Ur Barbiturates Screen NEGATIVE (NEGATIVE) 05/11/18 16:50 Ur Tricyclics Screen NEGATIVE (NEGATIVE) 05/11/18 16:50 Ur Phencyclidine Scrn NEGATIVE (NEGATIVE) 05/11/18 16:50 Amphetamines Screen NEGATIVE (NEGATIVE) 05/11/18 16:50 U Methamphetamines Scrn NEGATIVE (NEGATIVE) 05/11/18 16:50 U Benzodiazepines Scrn NEGATIVE (NEGATIVE) 05/11/18 16:50 U Cocaine Metab Screen NEGATIVE (NEGATIVE) 05/11/18 16:50 U Cannabinoids Screen NEGATIVE (NEGATIVE) 05/11/18 16:50 Blood Type A POSITIVE 05/11/18 16:48 Rho(D) Type Cancelled 05/11/18 16:48 Antibody Screen NEGATIVE 05/11/18 16:48 Crossmatch See Detail 05/11/18 16:48 BBK History Checked Cancelled 05/11/18 16:48 - Physical Exam Vitals and I&O: Vital Signs Temp 98.6 F 05/14/18 14:00 Pulse 79 05/14/18 15:14 Resp 16 05/14/18 14:00 BP 131/64 05/14/18 14:00 Pulse Ox 100 05/14/18 15:14 Intake & Output 05/13/18 05/14/18 05/14/18 18:59 06:59 18:59 Intake Total 1100 1020 Output Total 1700 Balance 1100 -680 Weight (lbs) 81.964 kg Intake: Intake, IV Amount 1100 200 Piperacillin Sodium/ 100 200 Tazobact 2.25 gm In Sodium Chloride 0.9% 100 ml @ 100 mls/hr IV Q8HR [facility] Rx#:[id number] Sodium Chloride 0.9% 1, 1000 000 ml @ 80 mls/hr IV . [id number] [facility] Rx#:[id number] Tube Feeding 520 Other 300 Output: Urine 1700 Other: # Bowel Movements 1 Stool Characteristics Formed Hard Brown Black Weight Source Bedscale Active Medications: Current Medications Acetaminophen (Tylenol 650mg/20.3ml Suspension) 650 mg GT Q6HR PRN PRN Reason: Mild Pain or Fever >101 Stop: 07/10/18 19:13 Last Admin: 05/11/18 21:39 Dose: 650 mg Acetaminophen/Hydrocodone Bitart ([place] 5mg/325mg) 1 tab GT Q6H PRN PRN Reason: Severe Pain Stop: 07/10/18 19:13 Acetylcysteine (Mucomyst 20%) 2 ml HHN Q6HRT [facility] Stop: 07/11/18 00:59 Last Admin: 05/14/18 12:59 Dose: 2 ml Albuterol Sulfate (Albuterol 2.5mg/3ml Neb Ud) 2.5 mg HHN Q2HRT PRN PRN Reason: Shortness of Breath or Wheeze Stop: 07/10/18 19:22 Albuterol/Ipratropium (Duoneb Neb) 3 ml HHN Q6HRT [facility] Stop: 07/11/18 00:59 Last Admin: 05/14/18 12:59 Dose: 3 ml Albuterol/Ipratropium (Duoneb Neb) 3 ml HHN Q2HRT PRN PRN Reason: Wheezing Stop: 07/10/18 19:13 Amlodipine Besylate (Norvasc) 5 mg GT DAILY [facility] Stop: 07/11/18 08:59 Last Admin: 05/14/18 09:31 Dose: 5 mg Benztropine Mesylate (Cogentin) 1 mg GT BID [facility] Stop: 07/11/18 08:59 Last Admin: 05/14/18 09:31 Dose: 1 mg Carbidopa/Levodopa (Sinemet 25mg-100 Mg) 1 tab GT DAILY [facility] Stop: 07/11/18 08:59 Last Admin: 05/14/18 09:30 Dose: 1 tab Chlorhexidine Gluconate (Peridex) 15 ml MM 0800,2000 [facility] Stop: 07/10/18 19:59 Last Admin: 05/14/18 09:32 Dose: 15 ml Clonazepam (Klonopin) 0.5 mg GT BID [facility]; Protocol Stop: 07/11/18 08:59 Last Admin: 05/14/18 09:31 Dose: 0.5 mg Docusate Sodium (Colace) 250 mg PO BID [facility] Stop: 07/11/18 08:59 Last Admin: 05/14/18 09:30 Dose: 250 mg Ferrous Sulfate (Iron) 330 mg GT DAILY [facility] Stop: 07/11/18 08:59 Last Admin: 05/14/18 09:30 Dose: 330 mg Gemfibrozil (Lopid) 600 mg GT BID [facility] Stop: 07/11/18 08:59 Last Admin: 05/14/18 09:33 Dose: 600 mg Sodium Chloride (Nacl 0.9%) 1,000 mls @ 80 mls/hr IV .[id number] [facility] Stop: 07/10/18 19:29 Last Admin: 05/13/18 22:10 Dose: 80 mls/hr Piperacillin Sod/Tazobactam (Sod 2.25 gm/ Sodium Chloride) 100 mls @ 100 mls/ hr IV Q8HR [facility] Stop: 07/10/18 20:59 Last Admin: 05/14/18 13:44 Dose: 100 mls/hr Amikacin Sulfate 500 mg/ (Dextrose) 102 mls @ 200 mls/hr IV Q24HR [facility] Stop: 07/13/18 14:59 Last Admin: 05/14/18 15:44 Dose: 200 mls/hr Insulin Aspart (Novolog) 0 units SUBQ Q6H [facility]; Protocol Stop: 07/11/18 00:00 Last Admin: 05/14/18 13:44 Dose: 2 units Insulin Human Isoph/Insulin Regular (Novolin 70/30) 22 units SUBQ HS [facility]; Protocol Stop: 07/10/18 20:59 Last Admin: 05/13/18 21:45 Dose: 22 units Insulin Human Isoph/Insulin Regular (Novolin 70/30) 45 units SUBQ DAILY [facility]; Protocol Stop: 07/11/18 08:59 Last Admin: 05/14/18 09:34 Dose: 45 units Ipratropium [place] (Atrovent Neb 0.5mg/2.5ml) 0.5 mg HHN Q2HRT PRN PRN Reason: Shortness of Breath or Wheeze Stop: 07/10/18 19:22 Lactobacillus Rhamnosus (Culturelle 15b) 1 each GT DAILY [facility] Stop: 07/11/18 08:59 Last Admin: 05/14/18 09:30 Dose: 1 each Lactulose (Cephulac) 20 gm GT PRN PRN PRN Reason: BOWEL MANAGEMENT Stop: 07/10/18 19:13 Levetiracetam (Keppra) 1,000 mg GT Q12HR [facility] Stop: 07/11/18 08:59 Last Admin: 05/14/18 09:31 Dose: 1,000 mg Levothyroxine Sodium (Synthroid) 0.1 mg GT QDAC [facility] Stop: 07/11/18 07:29 Last Admin: 05/14/18 09:30 Dose: 0.1 mg Lorazepam (Ativan) 1 mg IV Q4H PRN; Protocol PRN Reason: Seizure Stop: 07/10/18 19:22 Metoclopramide HCl (Reglan) 10 mg GT Q8HR [facility] Stop: 07/12/18 12:59 Last Admin: 05/14/18 13:44 Dose: 10 mg Miscellaneous (Calcium Alginate [Juan]) 1 each TP DAILY [facility] Stop: 07/11/18 08:59 Miscellaneous (Collagenase Clostridium Hist. [Santyl]) 1 appl TP DAILY [facility] Stop: 07/11/18 08:59 Miscellaneous (Petrolatum,White/Lanolin [Vitamin A And D Ointment]) 113 gm TP DAILY [facility] Stop: 07/11/18 08:59 Miscellaneous (Amikacin Iv Per Pharmacy) 1 ea PRN PRN PRN Reason: PROTOCOL Stop: 07/12/18 15:36 Ondansetron HCl (Zofran) 4 mg IV Q8H PRN PRN Reason: Nausea / Vomiting Stop: 07/10/18 19:23 Pantoprazole Sodium (Protonix) 40 mg IVP BID [facility] Stop: 07/11/18 08:59 Last Admin: 05/14/18 09:31 Dose: 40 mg Simvastatin (Zocor) 20 mg PO HS [facility]; Protocol Stop: 07/10/18 20:59 Last Admin: 05/13/18 21:10 Dose: 20 mg Sucralfate (Carafate) 1 gm GT QID [facility] Stop: 07/10/18 20:59 Last Admin: 05/14/18 13:44 Dose: 1 gm Zinc Sulfate (Zinc Sulfate) 220 mg GT DAILY [facility] Stop: 07/11/18 08:59 Last Admin: 05/14/18 09:31 Dose: 220 mg General: congested, demented, obtunded HEENT: NC/AT, PERRLA Neck: Supple, No JVD, No LAD, + trach, deformity Lungs: congested, rales, ronchi Cardiovascular: RRR, Normal S1, Normal S2, with murmur Abdomen: soft, globular, +GT, positive bowel sound Extremities: excoriation, contracture, deformity Neurological: no change, unable to follow command, bedbound - Procedures Procedures: Procedures Procedure Code Date AIRWAYS SURGICAL PROCEDURE 56985 03/03/16 BLOOD TRANSFUSION SERVICE 96840 09/27/17 CHANGE FEEDING DEVICE IN UP INTEST TRACT, GREETER GUEST SERVICES APPROACH [id number] 12/10/16 CHANGE GASTROSTOMY TUBE 37543 06/06/13 CONTINUOUS INVASIVE MECHANICAL VENTILATION <96 CONSEC HRS 96.71 02/02/13 CONTINUOUS INVASIVE MECHANICAL VENTILATION =/>96 CONSEC HRS 96.72 06/06/13 [place] 113[address] 03/03/16 IMMUNIZATION ADMIN 26686 03/03/16 INFLUENZA VACCINATION 99.52 02/02/13 INSERT NON-TUNNEL CV CATH 22435 03/03/16 INSERTION OF INFUSION DEV INTO SUP VENA CAVA, PERC APPROACH [id number] 03/03/16 INSJ PICC 5 YR+ W/O IMAGING 71796 02/02/13 INTRODUCTION OF SERUM/TOX/VACCINE INTO MUSCLE, PERC APPROACH [id number] 03/03/16 OTHER GASTROSTOMY 43.19 06/03/10 REPLACE GASTROSTOMY TUBE 97.02 06/06/13 RESPIRATORY VENTILATION, 24-96 CONSECUTIVE HOURS [id number] 05/11/18 RESPIRATORY VENTILATION, GREATER THAN 96 CONSECUTIVE HOURS [id number] 09/27/17 TRANSFUSE NONAUT RED BLOOD CELLS IN PERIPH VEIN, PERC [id number] 09/27/17 VACCINATION NEC 99.55 02/02/13 VENOUS CATHETERIZATION NEC 38.93 02/02/13 VENT MGMT INPAT INIT DAY 07950 03/03/16 VENT MGMT INPAT SUBQ DAY 15495 03/03/16 Internal Medicine Assmt/Plan - Assessment Assessment: ASSESSMENT: Anemia, which is severe, possibly secondary to a GI source versus hematuria from uti/sepsis, possible pneumonia, urinary tract infection, ventilator dependent respiratory failure, chronic hydrocephalus, dementia, decubitus ulcer, diabetes, obesity, Parkinson, leukocytosis, renal insufficiency, hyponatremia. - Plan Plan: PLAN: We will continue the patient on aggressive IV hydration and IV antibiotic. We will certainly give the patient vancomycin as well as Zosyn. We will hold the patient for blood transfusion. We will send for iron studies as well. We will discontinue aspirin as well as nonsteroidal anti-inflammatory drugs. We will continue to monitor the patient in ICU setting. appreciates dr romeo's input Nutritional Asmnt/Malnutr-PDOC - Dietary Evaluation Malnutrition Findings (Please click <Entered> for more info): Nutritional Asmnt/Malnutrition Start: 05/12/18 14: 39 Text: Status: Complete Freq: Protocol: Document 05/12/18 14:39 ADOLPH (Rec: 05/12/18 14:59 ADOLPH [id number]) Nutritional Asmnt/Malnutrition Patient General Information Nutritional Screening High Risk Consult Diagnosis UTI, GI bleed Pertinent Medical Hx/Surgical Hx Ventilator dependent Resp failure, Parkinson's, Seizure, Dementia, Chronic Hydrocephalus w SHIP LINER shunt, DM, Decubitus Ulcer, Subjective Information Consult received for Blood Glucose 233 with Hx of DM while on TF. Pt is trached to a ventilator. Current TF provides 1300ml/day volume, 1560 kcal/day, 78g Protein/ day. 1047 ml water total. Current Diet Order/ Nutrition Support Tube feeding Glucerna 1.2 65ml /hr x 20hrs Patient / S.O Not Indicated Pertinent Medications Docusate, Gemfibrozil, Insulin Aspart, Insulin Novolin, Lactulose, Synthroid, Metoclopramide, Ondansetron, Simvastatin Pertinent Labs (05/12) BUN 65, Na+ 135, Gluc 214, POC Gluc 241 Nutritional Hx/Data Height 1.63 m Height (Calculated Centimeters) 162.6 Current Weight (lbs) 78.018 kg Weight (Calculated Kilograms) 78.0 Weight (Calculated Grams) 50508.9 [place] Body Weight 120 % [place] Body Weight 135 Body Mass Index (BMI) 29.5 GI Symptoms Last BM No Noted B.M. Cultural/Ethnic/Mormonism Belief None indicated Skin Integrity/Comment: Germán Score 12. On Nursing flowsheet, pressure ulcer on coccyx noted. No wound care note. Unknown stage. Current %PO Negligible < 25% Estimated Nutritional Goals BEE in Kcals: Adj wt of IBW Calories/Kcals/Kg 25-30 Kcals Calculated 6808-9169 Protein: Adj wt of IBW Protein g/k.2-1.5 Protein Calculated 72-90 Fluid: ml 5319-6895 Nutritional Problem 1. Problem Problem Altered Nutritional related Lab values Etiology Uncontrolled hyperglycemia aeb Signs/Symptoms: (05/12) Gluc 214, POC Gluc 241 Malnutrition Alert Is there a minimum of two criteria No selected? Query Text:Check all the applicable criteria. A minimum of two criteria are recommended for diagnosis of either severe or non-severe malnutrition. Malnutrition Related to Morbid Obesity Malnutrition related to morbid obesity No Intervention/Recommendation Comments Continue Tube feeding as ordered. Pt already on DM tube feeding formula. MD to modify insulin regimen as needed for optimal glycemic control. Will modify nutrient needs based on wound care notes. Expected Outcomes/Goals Expected Outcomes/Goals 1. Labs WNL 2. Tube feeding continue to be tolerated 3. F/U in 2-3 days as HR (05/14 -)
[2018-05-14] MEDS: Sodium Chloride 0.9% 1,000 ML IV SCH (16:48)
--- NOTE | 2018-05-14 17:09 | Consultation ---
DATE OF CONSULTATION: 05/13/2018 PRIMARY CARE PHYSICIAN: Dr. Garza. HISTORY OF PRESENT ILLNESS: An 82-year-old female who was brought to the Emergency Room with complaint of low hemoglobin. The patient was seen by GI and admitted to ICU. The patient also has melena. Also, the patient has been having hematuria and the patient was started on bladder irrigation. Urine culture is positive. Infectious consultation was called for further treatment. The patient has dementia, unable to provide any meaningful history. Old chart reviewed and pertinent information obtained. PAST MEDICAL HISTORY: Chronic respiratory failure, chronic obstructive pulmonary disease, dependence on a respirator; CVA in the past, epilepsy, hydrocephalus, obstructive seizures, recurrent decubiti, hypertension, hypothyroidism, type 2 diabetes, and Parkinson's disease. PAST SURGICAL HISTORY: SPIRITUAL COUNSELOR shunt placement, EGD, PEG placement, and tracheostomy. FAMILY HISTORY: Negative. SOCIAL HISTORY: Nonsmoker. Lives in a snf. REVIEW OF SYSTEMS: Unable to obtain. No fall or trauma. The patient does have hematuria and black stool. No seizures, HIV, or hepatitis. Rest of the review of systems unable to obtain. PHYSICAL EXAMINATION: GENERAL: Elderly female. VITAL SIGNS: Temperature is 98.9, pulse 70, respirations 16, and blood pressure 114/53. HEENT: Mild pallor. No icterus or plaque. NECK: Supple. No thyromegaly. LUNGS: Breath sounds bilaterally present. CARDIOVASCULAR: S1. ABDOMEN: Soft, bowel sounds present. MUSCULOSKELETAL: Ankle edema present 1+. LABORATORY DATA: White count is 10,000, hemoglobin 7.3 grams, and platelets 289. Creatinine 1.3. Microbiology shows ESBL Klebsiella and Proteus mirabilis, both intermediate or sensitive to the amikacin. UA positive for UTI. Chest x-ray reviewed and shows left lower density. DIAGNOSES: ESBL UTI and pneumonia, vent dependence. PLAN: Sputum culture ordered and started on amikacin. Continue Zosyn and start on vancomycin IV. Supportive care. Rest of the care as ordered in CPOE. Regarding diabetes, Accu-Chek. Regarding bleeding, check CBC, vent support. Rest of the care as ordered in CPOE. Thank you, Dr. Garza for this consultation. JOB# [id number]
--- NOTE | 2018-05-14 17:52 | Infectious Disease Prog Note ---
Infectious Disease Subjective - Review of Systems Service Date: 05/14/18 Subjective: cc pn uti hpi- cx noted i n icu on vent vs chest claer abd soft trach dx Vital Signs - 24 hr 05/13/18 05/13/18 05/13/18 18:00 18:53 19:00 Temp HR 79 74 69 RR 15 16 BP 138/58 143/53 O2 Sat % 100 100 100 05/13/18 05/13/18 05/13/18 20:00 20:29 21:00 Temp 98.1 F HR 83 83 74 RR 16 16 BP 151/75 140/67 O2 Sat % 100 100 100 05/13/18 05/13/18 05/13/18 22:00 22:57 23:00 Temp HR 71 73 71 RR 16 16 BP 135/67 135/67 O2 Sat % 100 100 100 05/14/18 05/14/18 05/14/18 00:00 00:57 01:00 Temp 98.6 F HR 73 78 74 RR 16 16 BP 139/71 149/73 O2 Sat % 100 100 100 05/14/18 05/14/18 05/14/18 02:00 02:48 03:00 Temp HR 73 74 70 RR 16 16 BP 148/68 133/58 O2 Sat % 100 100 100 05/14/18 05/14/18 05/14/18 03:32 04:00 04:33 Temp 98.3 F HR 66 77 RR 16 16 BP 136/56 O2 Sat % 100 100 05/14/18 05/14/18 05/14/18 05:00 06:00 07:00 Temp 99.0 F HR 79 76 79 RR 15 16 16 BP 133/60 130/63 143/67 O2 Sat % 100 100 100 05/14/18 05/14/18 05/14/18 07:46 08:00 08:40 Temp 98.7 F HR 77 69 70 RR 16 BP 124/60 O2 Sat % 100 100 100 05/14/18 05/14/18 05/14/18 09:00 09:31 10:00 Temp 98.6 F 99.1 F HR 70 71 78 RR 16 16 BP 122/54 122/54 135/67 O2 Sat % 100 100 05/14/18 05/14/18 05/14/18 11:00 11:07 12:00 Temp 98.7 F 98.6 F HR 71 76 69 RR 16 14 BP 120/55 117/52 O2 Sat % 100 100 100 05/14/18 05/14/18 05/14/18 12:59 13:00 14:00 Temp 98.5 F 98.6 F HR 66 65 81 RR 16 16 BP 131/64 131/64 O2 Sat % 100 100 100 05/14/18 05/14/18 05/14/18 15:14 16:00 17:32 Temp HR 79 92 RR BP O2 Sat % 100 100 100 Laboratory Results - last 24 hr 05/12/18 05/13/18 05/13/18 20:56 17:59 21:56 WBC RBC Hgb Hct MCV MCH MCHC Differential RDW Plt Count MPV Add Manual Diff Band Neutrophils % Neutrophils (Manual) Lymphocytes Monocytes Sodium Potassium Chloride Carbon Dioxide Anion Gap BUN Creatinine Est GFR ( Amer) Est GFR (Non-Af Amer) BUN/Creatinine Ratio Glucose POC Glucose 207 H 176 H 148 H Calcium B-Natriuretic Peptide 05/13/18 05/14/18 05/14/18 21:58 00:35 04:35 WBC 8.1 RBC 2.68 L Hgb 7.1 L* Hct 21.9 L MCV 81.9 MCH 26.4 L MCHC Differential 32.2 RDW 16.9 Plt Count 286 MPV 7.4 Add Manual Diff YES Band Neutrophils % 2 Neutrophils (Manual) 80 Lymphocytes 12 L Monocytes 6 Sodium Potassium Chloride Carbon Dioxide Anion Gap BUN Creatinine Est GFR ( Amer) Est GFR (Non-Af Amer) BUN/Creatinine Ratio Glucose POC Glucose 149 H 161 H Calcium B-Natriuretic Peptide 05/14/18 05/14/18 05/14/18 04:35 04:35 05:30 WBC RBC Hgb Hct MCV MCH MCHC Differential RDW Plt Count MPV Add Manual Diff Band Neutrophils % Neutrophils (Manual) Lymphocytes Monocytes Sodium 139 Potassium 4.2 Chloride 106 Carbon Dioxide 22.1 Anion Gap 15.1 BUN 50 H Creatinine 1.3 H Est GFR ( Amer) TNP Est GFR (Non-Af Amer) TNP BUN/Creatinine Ratio 38.5 Glucose 165 H POC Glucose 143 H Calcium 8.4 L B-Natriuretic Peptide 84.7 05/14/18 05/14/18 09:27 13:29 WBC RBC Hgb Hct MCV MCH MCHC Differential RDW Plt Count MPV Add Manual Diff Band Neutrophils % Neutrophils (Manual) Lymphocytes Monocytes Sodium Potassium Chloride Carbon Dioxide Anion Gap BUN Creatinine Est GFR ( Amer) Est GFR (Non-Af Amer) BUN/Creatinine Ratio Glucose POC Glucose 176 H 161 H Calcium B-Natriuretic Peptide Diagnoses SEPSIS, UNSPECIFIED ORGANISM (05/11/18) ANEMIA, UNSPECIFIED (05/11/18) PNEUMONIA, UNSPECIFIED ORGANISM (05/11/18) CHRONIC RESPIRATORY FAILURE, UNSP W HYPOXIA OR HYPERCAPNIA (05/11/18) URINARY TRACT INFECTION, SITE NOT SPECIFIED (05/11/18) WEAKNESS (05/11/18) DEPENDENCE ON SUPPLEMENTAL OXYGEN (05/11/18) Current Medications Acetaminophen (Tylenol 650mg/20.3ml Suspension) 650 mg GT Q6HR PRN PRN Reason: Mild Pain or Fever >101 Stop: 07/10/18 19:13 Last Admin: 05/11/18 21:39 Dose: 650 mg Acetaminophen/Hydrocodone Bitart ([place] 5mg/325mg) 1 tab GT Q6H PRN PRN Reason: Severe Pain Stop: 07/10/18 19:13 Acetylcysteine (Mucomyst 20%) 2 ml HHN Q6HRT [facility] Stop: 07/11/18 00:59 Last Admin: 05/14/18 12:59 Dose: 2 ml Albuterol Sulfate (Albuterol 2.5mg/3ml Neb Ud) 2.5 mg HHN Q2HRT PRN PRN Reason: Shortness of Breath or Wheeze Stop: 07/10/18 19:22 Albuterol/Ipratropium (Duoneb Neb) 3 ml HHN Q6HRT [facility] Stop: 07/11/18 00:59 Last Admin: 05/14/18 12:59 Dose: 3 ml Albuterol/Ipratropium (Duoneb Neb) 3 ml HHN Q2HRT PRN PRN Reason: Wheezing Stop: 07/10/18 19:13 Amlodipine Besylate (Norvasc) 5 mg GT DAILY [facility] Stop: 07/11/18 08:59 Last Admin: 05/14/18 09:31 Dose: 5 mg Benztropine Mesylate (Cogentin) 1 mg GT BID [facility] Stop: 07/11/18 08:59 Last Admin: 05/14/18 16:38 Dose: 1 mg Carbidopa/Levodopa (Sinemet 25mg-100 Mg) 1 tab GT DAILY [facility] Stop: 07/11/18 08:59 Last Admin: 05/14/18 09:30 Dose: 1 tab Chlorhexidine Gluconate (Peridex) 15 ml MM 08,1999 [facility] Stop: 07/10/18 19:59 Last Admin: 05/14/18 09:32 Dose: 15 ml Clonazepam (Klonopin) 0.5 mg GT BID [facility]; Protocol Stop: 07/11/18 08:59 Last Admin: 05/14/18 16:38 Dose: 0.5 mg Docusate Sodium (Colace) 250 mg PO BID [facility] Stop: 07/11/18 08:59 Last Admin: 05/14/18 16:38 Dose: 250 mg Ferrous Sulfate (Iron) 330 mg GT DAILY [facility] Stop: 07/11/18 08:59 Last Admin: 05/14/18 09:30 Dose: 330 mg Gemfibrozil (Lopid) 600 mg GT BID [facility] Stop: 07/11/18 08:59 Last Admin: 05/14/18 16:38 Dose: 600 mg Sodium Chloride (Nacl 0.9%) 1,000 mls @ 80 mls/hr IV .[id number] [facility] Stop: 07/10/18 19:29 Last Admin: 05/14/18 16:48 Dose: 80 mls/hr Piperacillin Sod/Tazobactam (Sod 2.25 gm/ Sodium Chloride) 100 mls @ 100 mls/ hr IV Q8HR [facility] Stop: 07/10/18 20:59 Last Admin: 05/14/18 13:44 Dose: 100 mls/hr Amikacin Sulfate 500 mg/ (Dextrose) 102 mls @ 200 mls/hr IV Q24HR [facility] Stop: 07/13/18 14:59 Last Admin: 05/14/18 15:44 Dose: 200 mls/hr Insulin Aspart (Novolog) 0 units SUBQ Q6H [facility]; Protocol Stop: 07/11/18 00:00 Last Admin: 05/14/18 13:44 Dose: 2 units Insulin Human Isoph/Insulin Regular (Novolin 70/30) 22 units SUBQ HS [facility]; Protocol Stop: 07/10/18 20:59 Last Admin: 05/13/18 21:45 Dose: 22 units Insulin Human Isoph/Insulin Regular (Novolin 70/30) 45 units SUBQ DAILY [facility]; Protocol Stop: 07/11/18 08:59 Last Admin: 05/14/18 09:34 Dose: 45 units Ipratropium Somers (Atrovent Neb 0.5mg/2.5ml) 0.5 mg HHN Q2HRT PRN PRN Reason: Shortness of Breath or Wheeze Stop: 07/10/18 19:22 Lactobacillus Rhamnosus (Culturelle 15b) 1 each GT DAILY [facility] Stop: 07/11/18 08:59 Last Admin: 05/14/18 09:30 Dose: 1 each Lactulose (Cephulac) 20 gm GT PRN PRN PRN Reason: BOWEL MANAGEMENT Stop: 07/10/18 19:13 Levetiracetam (Keppra) 1,000 mg GT Q12HR [facility] Stop: 07/11/18 08:59 Last Admin: 05/14/18 09:31 Dose: 1,000 mg Levothyroxine Sodium (Synthroid) 0.1 mg GT QDAC [facility] Stop: 07/11/18 07:29 Last Admin: 05/14/18 09:30 Dose: 0.1 mg Lorazepam (Ativan) 1 mg IV Q4H PRN; Protocol PRN Reason: Seizure Stop: 07/10/18 19:22 Metoclopramide HCl (Reglan) 10 mg GT Q8HR [facility] Stop: 07/12/18 12:59 Last Admin: 05/14/18 13:44 Dose: 10 mg Miscellaneous (Calcium Alginate [Juan]) 1 each TP DAILY [facility] Stop: 07/11/18 08:59 Miscellaneous (Collagenase Clostridium Hist. [Santyl]) 1 appl TP DAILY [facility] Stop: 07/11/18 08:59 Miscellaneous (Petrolatum,White/Lanolin [Vitamin A And D Ointment]) 113 gm TP DAILY [facility] Stop: 07/11/18 08:59 Miscellaneous (Amikacin Iv Per Pharmacy) 1 ea MC PRN PRN PRN Reason: PROTOCOL Stop: 07/12/18 15:36 Ondansetron HCl (Zofran) 4 mg IV Q8H PRN PRN Reason: Nausea / Vomiting Stop: 07/10/18 19:23 Pantoprazole Sodium (Protonix) 40 mg IVP BID [facility] Stop: 07/11/18 08:59 Last Admin: 05/14/18 16:39 Dose: 40 mg Simvastatin (Zocor) 20 mg PO HS [facility]; Protocol Stop: 07/10/18 20:59 Last Admin: 05/13/18 21:10 Dose: 20 mg Sucralfate (Carafate) 1 gm GT QID [facility] Stop: 07/10/18 20:59 Last Admin: 05/14/18 16:38 Dose: 1 gm Zinc Sulfate (Zinc Sulfate) 220 mg GT DAILY [facility] Stop: 07/11/18 08:59 Last Admin: 05/14/18 09:31 Dose: 220 mg 05/14/18 16:21 Wound Care Notes by Eric Connors Wound Evaluation: Wound Consult ordered for low Germán score. Patient evaluated for a low Germán score of 12. Patient was asleep, non- responsive to voice, responsive to tactile stimuli, and received in a [employer] InTouch bed with an IsoFlex CRUZ mattress. Patient is unable to turn in bed independently. Skin is fair; Scar tissue present on Sacral-Coccygeal area. Recommend: Reposition patient [id number] only every two hours with pillow support. Elevate, off-load, and float bilateral heels with one pillow lengthwise under each extremity at all times. Offload pressure areas with pillows for pressure re-distribution. Perform skin care and monitor skin integrity q shift. Use moisture barrier cream on moisture susceptible areas qid and as needed for soiling. Initiate low air loss therapy. Will continue to follow as a Germán. Initialized on 05/14/18 16:21 - END OF NOTE Infectious Disease Objective - Results Result Diagrams: 05/14/18 04:35 05/14/18 04:35 Recent Labs: Laboratory Last Values WBC 8.1 Th/cmm (4.8-10.8) 05/14/18 04:35 RBC 2.68 Mil/cmm (3.80-5.20) L 05/14/18 04:35 Hgb 7.1 gm/dL (12-16) L* 05/14/18 04:35 Hct 21.9 % (41.0-60) L 05/14/18 04:35 MCV 81.9 fl (81-100) 05/14/18 04:35 MCH 26.4 pg (27.0-31.0) L 05/14/18 04:35 MCHC Differential 32.2 pg (28.0-36.0) 05/14/18 04:35 RDW 16.9 % (11.5-20.0) 05/14/18 04:35 Plt Count 286 Th/cmm (150-400) 05/14/18 04:35 MPV 7.4 fl 05/14/18 04:35 Add Manual Diff YES 05/14/18 04:35 Neutrophils % VALUATION CONSULTANT 05/13/18 04:10 Band Neutrophils % 2 % (0-10) 05/14/18 04:35 Lymphocytes % VALUATION CONSULTANT 05/13/18 04:10 Monocytes % VALUATION CONSULTANT 05/13/18 04:10 Eosinophils % VALUATION CONSULTANT 05/13/18 04:10 Basophils % VALUATION CONSULTANT 05/13/18 04:10 Neutrophils (Manual) 80 % (40-80) 05/14/18 04:35 Lymphocytes 12 % (20-50) L 05/14/18 04:35 Monocytes 6 % (2-10) 05/14/18 04:35 Eosinophils 2 % (0-5) 05/12/18 07:10 Basophils 0 % (0-3) 05/12/18 07:10 Sodium 139 mEq/L (136-145) 05/14/18 04:35 Potassium 4.2 mEq/L (3.5-5.1) 05/14/18 04:35 Chloride 106 mEq/L (98-107) 05/14/18 04:35 Carbon Dioxide 22.1 mEq/L (21.0-31.0) 05/14/18 04:35 Anion Gap 15.1 (7.0-16.0) 05/14/18 04:35 BUN 50 mg/dL (7-25) H 05/14/18 04:35 Creatinine 1.3 mg/dL (0.6-1.2) H 05/14/18 04:35 Est GFR ( Amer) TNP 05/14/18 04:35 Est GFR (Non-Af Amer) TNP 05/14/18 04:35 BUN/Creatinine Ratio 38.5 05/14/18 04:35 Glucose 165 mg/dL (70-105) H 05/14/18 04:35 POC Glucose 161 MG/DL (70 - 105) H 05/14/18 13:29 Whole Bld Lactic Acid 1.45 mmol/L (0.60-1.99) 05/11/18 15:45 Calcium 8.4 mg/dL (8.6-10.3) L 05/14/18 04:35 Phosphorus 3.9 mg/dL (2.5-5.0) 05/11/18 15:45 Magnesium 2.7 mg/dL (1.9-2.7) 05/11/18 15:45 Iron 49 ug/dL (27-139) 05/12/18 07:10 TIBC 264 ug/dL (250-450) 05/12/18 07:10 Iron Saturation 19 % (15-55) 05/12/18 07:10 Unsaturated IBC 215 ug/dL (118-369) 05/12/18 07:10 Total Bilirubin 0.3 mg/dL (0.3-1.0) 05/11/18 15:45 AST 13 U/L (13-39) 05/11/18 15:45 ALT 10 U/L (7-52) 05/11/18 15:45 Alkaline Phosphatase 81 U/L (34-104) 05/11/18 15:45 Ammonia 59 umol/L (16-53) H 05/13/18 04:10 B-Natriuretic Peptide 84.7 pg/mL (5.0-100.0) 05/14/18 04:35 Total Protein 8.3 gm/dL (6.0-8.3) 05/11/18 15:45 Albumin 3.6 gm/dL (3.7-5.3) L 05/11/18 15:45 Globulin 4.7 gm/dL 05/11/18 15:45 Albumin/Globulin Ratio 0.8 (1.0-1.8) L 05/11/18 15:45 TSH 1.25 uIU/ml (0.34-5.60) 05/11/18 15:45 Urine Source CATH 05/11/18 16:50 Urine Color BROWN 05/11/18 16:50 Urine Clarity CLOUDY (CLEAR) H 05/11/18 16:50 Urine pH 7.0 (4.6 - 8.0) 05/11/18 16:50 Ur Specific [place] 1.010 (1.005-1.030) 05/11/18 16:50 Urine Protein 100 mg/dL (NEGATIVE) H 05/11/18 16:50 Urine Glucose (UA) NEGATIVE mg/dL (NEGATIVE) 05/11/18 16:50 Urine Ketones NEGATIVE mg/dL (NEGATIVE) 05/11/18 16:50 Urine Blood LARGE (NEGATIVE) H 05/11/18 16:50 Urine Nitrate NEGATIVE (NEGATIVE) 05/11/18 16:50 Urine Bilirubin SMALL (NEGATIVE) H 05/11/18 16:50 Urine Urobilinogen 0.2 E.U./dL (0.2 - 1.0) 05/11/18 16:50 Ur Leukocyte Esterase LARGE (NEGATIVE) H 05/11/18 16:50 Urine RBC 25-50 /hpf (0-5) H 05/11/18 16:50 Urine WBC 50-100 /hpf (0-5) H 05/11/18 16:50 Ur Epithelial Cells MODERATE /lpf (FEW) 05/11/18 16:50 Urine Bacteria 4+ /hpf (NONE SEEN) H 05/11/18 16:50 Urine Opiates Screen POSITIVE (NEGATIVE) H 05/11/18 16:50 Urine Methadone Screen NEGATIVE (NEGATIVE) 05/11/18 16:50 Ur Barbiturates Screen NEGATIVE (NEGATIVE) 05/11/18 16:50 Ur Tricyclics Screen NEGATIVE (NEGATIVE) 05/11/18 16:50 Ur Phencyclidine Scrn NEGATIVE (NEGATIVE) 05/11/18 16:50 Amphetamines Screen NEGATIVE (NEGATIVE) 05/11/18 16:50 U Methamphetamines Scrn NEGATIVE (NEGATIVE) 05/11/18 16:50 U Benzodiazepines Scrn NEGATIVE (NEGATIVE) 05/11/18 16:50 U Cocaine Metab Screen NEGATIVE (NEGATIVE) 05/11/18 16:50 U Cannabinoids Screen NEGATIVE (NEGATIVE) 05/11/18 16:50 Blood Type A POSITIVE 05/11/18 16:48 Rho(D) Type Cancelled 05/11/18 16:48 Antibody Screen NEGATIVE 05/11/18 16:48 Crossmatch See Detail 05/11/18 16:48 BBK History Checked Cancelled 05/11/18 16:48 - Physical Exam Vitals and I&O: Vital Signs Temp 98.6 F 05/14/18 14:00 Pulse 92 05/14/18 17:32 Resp 16 05/14/18 14:00 BP 131/64 05/14/18 14:00 Pulse Ox 100 05/14/18 17:32 Intake & Output 05/13/18 05/14/18 05/14/18 18:59 06:59 18:59 Intake Total 1100 1020 1000 Output Total 1700 Balance 1100 -680 1000 Weight (lbs) 81.964 kg Intake: Intake, IV Amount 5261 266 7285 Piperacillin Sodium/ 100 200 Tazobact 2.25 gm In Sodium Chloride 0.9% 100 ml @ 100 mls/hr IV Q8HR [facility] Rx#:[id number] Sodium Chloride 0.9% 1, 1000 1000 000 ml @ 80 mls/hr IV . [id number] [facility] Rx#:[id number] Tube Feeding 520 Other 300 Output: Urine 1700 Other: # Bowel Movements 1 Stool Characteristics Formed Hard Brown Black Weight Source Bedscale Active Medications: Current Medications Acetaminophen (Tylenol 650mg/20.3ml Suspension) 650 mg GT Q6HR PRN PRN Reason: Mild Pain or Fever >101 Stop: 07/10/18 19:13 Last Admin: 05/11/18 21:39 Dose: 650 mg Acetaminophen/Hydrocodone Bitart ([place] 5mg/325mg) 1 tab GT Q6H PRN PRN Reason: Severe Pain Stop: 07/10/18 19:13 Acetylcysteine (Mucomyst 20%) 2 ml HHN Q6HRT [facility] Stop: 07/11/18 00:59 Last Admin: 05/14/18 12:59 Dose: 2 ml Albuterol Sulfate (Albuterol 2.5mg/3ml Neb Ud) 2.5 mg HHN Q2HRT PRN PRN Reason: Shortness of Breath or Wheeze Stop: 07/10/18 19:22 Albuterol/Ipratropium (Duoneb Neb) 3 ml HHN Q6HRT [facility] Stop: 07/11/18 00:59 Last Admin: 05/14/18 12:59 Dose: 3 ml Albuterol/Ipratropium (Duoneb Neb) 3 ml HHN Q2HRT PRN PRN Reason: Wheezing Stop: 07/10/18 19:13 Amlodipine Besylate (Norvasc) 5 mg GT DAILY [facility] Stop: 07/11/18 08:59 Last Admin: 05/14/18 09:31 Dose: 5 mg Benztropine Mesylate (Cogentin) 1 mg GT BID [facility] Stop: 07/11/18 08:59 Last Admin: 05/14/18 16:38 Dose: 1 mg Carbidopa/Levodopa (Sinemet 25mg-100 Mg) 1 tab GT DAILY [facility] Stop: 07/11/18 08:59 Last Admin: 05/14/18 09:30 Dose: 1 tab Chlorhexidine Gluconate (Peridex) 15 ml MM 0800,1999 [facility] Stop: 07/10/18 19:59 Last Admin: 05/14/18 09:32 Dose: 15 ml Clonazepam (Klonopin) 0.5 mg GT BID [facility]; Protocol Stop: 07/11/18 08:59 Last Admin: 05/14/18 16:38 Dose: 0.5 mg Docusate Sodium (Colace) 250 mg PO BID [facility] Stop: 07/11/18 08:59 Last Admin: 05/14/18 16:38 Dose: 250 mg Ferrous Sulfate (Iron) 330 mg GT DAILY [facility] Stop: 07/11/18 08:59 Last Admin: 05/14/18 09:30 Dose: 330 mg Gemfibrozil (Lopid) 600 mg GT BID [facility] Stop: 07/11/18 08:59 Last Admin: 05/14/18 16:38 Dose: 600 mg Sodium Chloride (Nacl 0.9%) 1,000 mls @ 80 mls/hr IV .[id number] [facility] Stop: 07/10/18 19:29 Last Admin: 05/14/18 16:48 Dose: 80 mls/hr Piperacillin Sod/Tazobactam (Sod 2.25 gm/ Sodium Chloride) 100 mls @ 100 mls/ hr IV Q8HR [facility] Stop: 07/10/18 20:59 Last Admin: 05/14/18 13:44 Dose: 100 mls/hr Amikacin Sulfate 500 mg/ (Dextrose) 102 mls @ 200 mls/hr IV Q24HR [facility] Stop: 07/13/18 14:59 Last Admin: 05/14/18 15:44 Dose: 200 mls/hr Insulin Aspart (Novolog) 0 units SUBQ Q6H [facility]; Protocol Stop: 07/11/18 00:00 Last Admin: 05/14/18 13:44 Dose: 2 units Insulin Human Isoph/Insulin Regular (Novolin 70/30) 22 units SUBQ HS [facility]; Protocol Stop: 07/10/18 20:59 Last Admin: 05/13/18 21:45 Dose: 22 units Insulin Human Isoph/Insulin Regular (Novolin 70/30) 45 units SUBQ DAILY [facility]; Protocol Stop: 07/11/18 08:59 Last Admin: 05/14/18 09:34 Dose: 45 units Ipratropium [place] (Atrovent Neb 0.5mg/2.5ml) 0.5 mg HHN Q2HRT PRN PRN Reason: Shortness of Breath or Wheeze Stop: 07/10/18 19:22 Lactobacillus Rhamnosus (Culturelle 15b) 1 each GT DAILY [facility] Stop: 07/11/18 08:59 Last Admin: 05/14/18 09:30 Dose: 1 each Lactulose (Cephulac) 20 gm GT PRN PRN PRN Reason: BOWEL MANAGEMENT Stop: 07/10/18 19:13 Levetiracetam (Keppra) 1,000 mg GT Q12HR [facility] Stop: 07/11/18 08:59 Last Admin: 05/14/18 09:31 Dose: 1,000 mg Levothyroxine Sodium (Synthroid) 0.1 mg GT QDAC [facility] Stop: 07/11/18 07:29 Last Admin: 05/14/18 09:30 Dose: 0.1 mg Lorazepam (Ativan) 1 mg IV Q4H PRN; Protocol PRN Reason: Seizure Stop: 07/10/18 19:22 Metoclopramide HCl (Reglan) 10 mg GT Q8HR [facility] Stop: 07/12/18 12:59 Last Admin: 05/14/18 13:44 Dose: 10 mg Miscellaneous (Calcium Alginate [Juan]) 1 each TP DAILY [facility] Stop: 07/11/18 08:59 Miscellaneous (Collagenase Clostridium Hist. [Santyl]) 1 appl TP DAILY [facility] Stop: 07/11/18 08:59 Miscellaneous (Petrolatum,White/Lanolin [Vitamin A And D Ointment]) 113 gm TP DAILY [facility] Stop: 07/11/18 08:59 Miscellaneous (Amikacin Iv Per Pharmacy) 1 ea MC PRN PRN PRN Reason: PROTOCOL Stop: 07/12/18 15:36 Ondansetron HCl (Zofran) 4 mg IV Q8H PRN PRN Reason: Nausea / Vomiting Stop: 07/10/18 19:23 Pantoprazole Sodium (Protonix) 40 mg IVP BID [facility] Stop: 07/11/18 08:59 Last Admin: 05/14/18 16:39 Dose: 40 mg Simvastatin (Zocor) 20 mg PO HS [facility]; Protocol Stop: 07/10/18 20:59 Last Admin: 05/13/18 21:10 Dose: 20 mg Sucralfate (Carafate) 1 gm GT QID [facility] Stop: 07/10/18 20:59 Last Admin: 05/14/18 16:38 Dose: 1 gm Zinc Sulfate (Zinc Sulfate) 220 mg GT DAILY [facility] Stop: 07/11/18 08:59 Last Admin: 05/14/18 09:31 Dose: 220 mg - Procedures Procedures: Procedures Procedure Code Date AIRWAYS SURGICAL PROCEDURE 95008 03/03/16 BLOOD TRANSFUSION SERVICE 34992 09/27/17 CHANGE FEEDING DEVICE IN UP INTEST TRACT, OCCUPATIONAL HEALTH COORDINATOR APPROACH [id number] 12/10/16 CHANGE GASTROSTOMY TUBE 67829 06/06/13 CONTINUOUS INVASIVE MECHANICAL VENTILATION <96 CONSEC HRS 96.71 02/02/13 CONTINUOUS INVASIVE MECHANICAL VENTILATION =/>96 CONSEC HRS 96.72 06/06/13 [place] [id number] 03/03/16 IMMUNIZATION ADMIN [id number] 03/03/16 INFLUENZA VACCINATION 99.52 02/02/13 INSERT NON-TUNNEL CV CATH 81479 03/03/16 INSERTION OF INFUSION DEV INTO SUP VENA CAVA, PERC APPROACH [id number] 03/03/16 INSJ PICC 5 YR+ W/O IMAGING 73360 02/02/13 INTRODUCTION OF SERUM/TOX/VACCINE INTO MUSCLE, PERC APPROACH [id number] 03/03/16 OTHER GASTROSTOMY 43.19 06/03/10 REPLACE GASTROSTOMY TUBE 97.02 06/06/13 RESPIRATORY VENTILATION, 24-96 CONSECUTIVE HOURS [id number] 05/11/18 RESPIRATORY VENTILATION, GREATER THAN 96 CONSECUTIVE HOURS [id number] 09/27/17 TRANSFUSE NONAUT RED BLOOD CELLS IN PERIPH VEIN, PERC 50002I5 09/27/17 VACCINATION NEC 99.55 02/02/13 VENOUS CATHETERIZATION NEC 38.93 02/02/13 VENT MGMT INPAT INIT DAY 03/03/16 VENT MGMT INPAT SUBQ DAY 03/03/16 Nutritional Asmnt/Malnutr-PDOC - Dietary Evaluation Malnutrition Findings (Please click <Entered> for more info): Nutritional Asmnt/Malnutrition Start: 05/12/18 14: 39 Text: Status: Complete Freq: Protocol: Document 05/12/18 14:39 RHAQUE (Rec: 05/12/18 14:59 RHAQUE [id number]) Nutritional Asmnt/Malnutrition Patient General Information Nutritional Screening High Risk Consult Diagnosis UTI, GI bleed Pertinent Medical Hx/Surgical Hx Ventilator dependent Resp failure, Parkinson's, Seizure, Dementia, Chronic Hydrocephalus w MAIN [employer] shunt, DM, Decubitus Ulcer, Subjective Information Consult received for Blood Glucose 233 with Hx of DM while on TF. Pt is trached to a ventilator. Current TF provides 1300ml/day volume, 1560 kcal/day, 78g Protein/ day. 1047 ml water total. Current Diet Order/ Nutrition Support Tube feeding Glucerna 1.2 65ml /hr x 20hrs Patient / S.O Not Indicated Pertinent Medications Docusate, Gemfibrozil, Insulin Aspart, Insulin Novolin, Lactulose, Synthroid, Metoclopramide, Ondansetron, Simvastatin Pertinent Labs (05/12) BUN 65, Na+ 135, Gluc 214, POC Gluc 241 Nutritional Hx/Data Height 1.63 m Height (Calculated Centimeters) 162.6 Current Weight (lbs) 78.018 kg Weight (Calculated Kilograms) 78.0 Weight (Calculated Grams) 10511.9 Gaffney Body Weight 120 % Gaffney Body Weight 135 Body Mass Index (BMI) 29.5 GI Symptoms Last BM No Noted B.M. Cultural/Ethnic/Hindu Belief None indicated Skin Integrity/Comment: Germán Score 12. On Nursing flowsheet, pressure ulcer on coccyx noted. No wound care note. Unknown stage. Current %PO Negligible < 25% Estimated Nutritional Goals BEE in Kcals: Adj wt of IBW Calories/Kcals/Kg 25-30 Kcals Calculated 0124-6638 Protein: Adj wt of IBW Protein g/k.2-1.5 Protein Calculated 72-90 Fluid: ml 9450-3182 Nutritional Problem 1. Problem Problem Altered Nutritional related Lab values Etiology Uncontrolled hyperglycemia aeb Signs/Symptoms: (05/12) Gluc 214, POC Gluc 241 Malnutrition Alert Is there a minimum of two criteria No selected? Query Text:Check all the applicable criteria. A minimum of two criteria are recommended for diagnosis of either severe or non-severe malnutrition. Malnutrition Related to Morbid Obesity Malnutrition related to morbid obesity No Intervention/Recommendation Comments Continue Tube feeding as ordered. Pt already on DM tube feeding formula. MD to modify insulin regimen as needed for optimal glycemic control. Will modify nutrient needs based on wound care notes. Expected Outcomes/Goals Expected Outcomes/Goals 1. Labs WNL 2. Tube feeding continue to be tolerated 3. F/U in 2-3 days as HR (05/14 -)
--- NOTE | 2018-05-14 17:55 | Infectious Disease Prog Note ---
Infectious Disease Subjective - Review of Systems Service Date: 05/14/18 Events since last encounter: cc pn vent/ uti hpi- pt in icu tolerating meds cx reviewed ros nlo befcr o/e on vent Vital Signs - 24 hr 05/13/18 05/13/18 05/13/18 18:00 18:53 19:00 Temp HR 79 74 69 RR 15 16 BP 138/58 143/53 O2 Sat % 100 100 100 05/13/18 05/13/18 05/13/18 20:00 20:29 21:00 Temp 98.1 F HR 83 83 74 RR 16 16 BP 151/75 140/67 O2 Sat % 100 100 100 05/13/18 05/13/18 05/13/18 22:00 22:57 23:00 Temp HR 71 73 71 RR 16 16 BP 135/67 135/67 O2 Sat % 100 100 100 05/14/18 05/14/18 05/14/18 00:00 00:57 01:00 Temp 98.6 F HR 73 78 74 RR 16 16 BP 139/71 149/73 O2 Sat % 100 100 100 05/14/18 05/14/18 05/14/18 02:00 02:48 03:00 Temp HR 73 74 70 RR 16 16 BP 148/68 133/58 O2 Sat % 100 100 100 05/14/18 05/14/18 05/14/18 03:32 04:00 04:33 Temp 98.3 F HR 66 77 RR 16 16 BP 136/56 O2 Sat % 100 100 05/14/18 05/14/18 05/14/18 05:00 06:00 07:00 Temp 99.0 F HR 79 76 79 RR 15 16 16 BP 133/60 130/63 143/67 O2 Sat % 100 100 100 05/14/18 05/14/18 05/14/18 07:46 08:00 08:40 Temp 98.7 F HR 77 69 70 RR 16 BP 124/60 O2 Sat % 100 100 100 05/14/18 05/14/18 05/14/18 09:00 09:31 10:00 Temp 98.6 F 99.1 F HR 70 71 78 RR 16 16 BP 122/54 122/54 135/67 O2 Sat % 100 100 05/14/18 05/14/18 05/14/18 11:00 11:07 12:00 Temp 98.7 F 98.6 F HR 71 76 69 RR 16 14 BP 120/55 117/52 O2 Sat % 100 100 100 05/14/18 05/14/18 05/14/18 12:59 13:00 14:00 Temp 98.5 F 98.6 F HR 66 65 81 RR 16 16 BP 131/64 131/64 O2 Sat % 100 100 100 05/14/18 05/14/18 05/14/18 15:14 16:00 17:32 Temp HR 79 92 RR BP O2 Sat % 100 100 100 Infectious Disease Objective - Results Result Diagrams: 05/14/18 04:35 05/14/18 04:35 Recent Labs: Laboratory Last Values WBC 8.1 Th/cmm (4.8-10.8) 05/14/18 04:35 RBC 2.68 Mil/cmm (3.80-5.20) L 05/14/18 04:35 Hgb 7.1 gm/dL (12-16) L* 05/14/18 04:35 Hct 21.9 % (41.0-60) L 05/14/18 04:35 MCV 81.9 fl (81-100) 05/14/18 04:35 MCH 26.4 pg (27.0-31.0) L 05/14/18 04:35 MCHC Differential 32.2 pg (28.0-36.0) 05/14/18 04:35 RDW 16.9 % (11.5-20.0) 05/14/18 04:35 Plt Count 286 Th/cmm (150-400) 05/14/18 04:35 MPV 7.4 fl 05/14/18 04:35 Add Manual Diff YES 05/14/18 04:35 Neutrophils % BUSINESS ANALYTICS SPECIALIST 05/13/18 04:10 Band Neutrophils % 2 % (0-10) 05/14/18 04:35 Lymphocytes % BUSINESS ANALYTICS SPECIALIST 05/13/18 04:10 Monocytes % BUSINESS ANALYTICS SPECIALIST 05/13/18 04:10 Eosinophils % BUSINESS ANALYTICS SPECIALIST 05/13/18 04:10 Basophils % BUSINESS ANALYTICS SPECIALIST 05/13/18 04:10 Neutrophils (Manual) 80 % (40-80) 05/14/18 04:35 Lymphocytes 12 % (20-50) L 05/14/18 04:35 Monocytes 6 % (2-10) 05/14/18 04:35 Eosinophils 2 % (0-5) 05/12/18 07:10 Basophils 0 % (0-3) 05/12/18 07:10 Sodium 139 mEq/L (136-145) 05/14/18 04:35 Potassium 4.2 mEq/L (3.5-5.1) 05/14/18 04:35 Chloride 106 mEq/L (98-107) 05/14/18 04:35 Carbon Dioxide 22.1 mEq/L (21.0-31.0) 05/14/18 04:35 Anion Gap 15.1 (7.0-16.0) 05/14/18 04:35 BUN 50 mg/dL (7-25) H 05/14/18 04:35 Creatinine 1.3 mg/dL (0.6-1.2) H 05/14/18 04:35 Est GFR ( Amer) TNP 05/14/18 04:35 Est GFR (Non-Af Amer) TNP 05/14/18 04:35 BUN/Creatinine Ratio 38.5 05/14/18 04:35 Glucose 165 mg/dL (70-105) H 05/14/18 04:35 POC Glucose 161 MG/DL (70 - 105) H 05/14/18 13:29 Whole Bld Lactic Acid 1.45 mmol/L (0.60-1.99) 05/11/18 15:45 Calcium 8.4 mg/dL (8.6-10.3) L 05/14/18 04:35 Phosphorus 3.9 mg/dL (2.5-5.0) 05/11/18 15:45 Magnesium 2.7 mg/dL (1.9-2.7) 05/11/18 15:45 Iron 49 ug/dL (27-139) 05/12/18 07:10 TIBC 264 ug/dL (250-450) 05/12/18 07:10 Iron Saturation 19 % (15-55) 05/12/18 07:10 Unsaturated IBC 215 ug/dL (118-369) 05/12/18 07:10 Total Bilirubin 0.3 mg/dL (0.3-1.0) 05/11/18 15:45 AST 13 U/L (13-39) 05/11/18 15:45 ALT 10 U/L (7-52) 05/11/18 15:45 Alkaline Phosphatase 81 U/L (34-104) 05/11/18 15:45 Ammonia 59 umol/L (16-53) H 05/13/18 04:10 B-Natriuretic Peptide 84.7 pg/mL (5.0-100.0) 05/14/18 04:35 Total Protein 8.3 gm/dL (6.0-8.3) 05/11/18 15:45 Albumin 3.6 gm/dL (3.7-5.3) L 05/11/18 15:45 Globulin 4.7 gm/dL 05/11/18 15:45 Albumin/Globulin Ratio 0.8 (1.0-1.8) L 05/11/18 15:45 TSH 1.25 uIU/ml (0.34-5.60) 05/11/18 15:45 Urine Source CATH 05/11/18 16:50 Urine Color BROWN 05/11/18 16:50 Urine Clarity CLOUDY (CLEAR) H 05/11/18 16:50 Urine pH 7.0 (4.6 - 8.0) 05/11/18 16:50 Ur Specific [place] 1.010 (1.005-1.030) 05/11/18 16:50 Urine Protein 100 mg/dL (NEGATIVE) H 05/11/18 16:50 Urine Glucose (UA) NEGATIVE mg/dL (NEGATIVE) 05/11/18 16:50 Urine Ketones NEGATIVE mg/dL (NEGATIVE) 05/11/18 16:50 Urine Blood LARGE (NEGATIVE) H 05/11/18 16:50 Urine Nitrate NEGATIVE (NEGATIVE) 05/11/18 16:50 Urine Bilirubin SMALL (NEGATIVE) H 05/11/18 16:50 Urine Urobilinogen 0.2 E.U./dL (0.2 - 1.0) 05/11/18 16:50 Ur Leukocyte Esterase LARGE (NEGATIVE) H 05/11/18 16:50 Urine RBC 25-50 /hpf (0-5) H 05/11/18 16:50 Urine WBC 50-100 /hpf (0-5) H 05/11/18 16:50 Ur Epithelial Cells MODERATE /lpf (FEW) 05/11/18 16:50 Urine Bacteria 4+ /hpf (NONE SEEN) H 05/11/18 16:50 Urine Opiates Screen POSITIVE (NEGATIVE) H 05/11/18 16:50 Urine Methadone Screen NEGATIVE (NEGATIVE) 05/11/18 16:50 Ur Barbiturates Screen NEGATIVE (NEGATIVE) 05/11/18 16:50 Ur Tricyclics Screen NEGATIVE (NEGATIVE) 05/11/18 16:50 Ur Phencyclidine Scrn NEGATIVE (NEGATIVE) 05/11/18 16:50 Amphetamines Screen NEGATIVE (NEGATIVE) 05/11/18 16:50 U Methamphetamines Scrn NEGATIVE (NEGATIVE) 05/11/18 16:50 U Benzodiazepines Scrn NEGATIVE (NEGATIVE) 05/11/18 16:50 U Cocaine Metab Screen NEGATIVE (NEGATIVE) 05/11/18 16:50 U Cannabinoids Screen NEGATIVE (NEGATIVE) 05/11/18 16:50 Blood Type A POSITIVE 05/11/18 16:48 Rho(D) Type Cancelled 05/11/18 16:48 Antibody Screen NEGATIVE 05/11/18 16:48 Crossmatch See Detail 05/11/18 16:48 BBK History Checked Cancelled 05/11/18 16:48 - Physical Exam Vitals and I&O: Vital Signs Temp 98.6 F 05/14/18 14:00 Pulse 92 05/14/18 17:32 Resp 16 05/14/18 14:00 BP 131/64 05/14/18 14:00 Pulse Ox 100 05/14/18 17:32 Intake & Output 05/13/18 05/14/18 05/14/18 18:59 06:59 18:59 Intake Total 1100 1020 1000 Output Total 1700 Balance 1100 -680 1000 Weight (lbs) 81.964 kg Intake: Intake, IV Amount 2967 596 3140 Piperacillin Sodium/ 100 200 Tazobact 2.25 gm In Sodium Chloride 0.9% 100 ml @ 100 mls/hr IV Q8HR JUAN FRANCISCO Rx#:[id number] Sodium Chloride 0.9% 1, 1000 1000 000 ml @ 80 mls/hr IV . [id number] JUAN FRANCISCO Rx#:[id number] Tube Feeding 520 Other 300 Output: Urine 1700 Other: # Bowel Movements 1 Stool Characteristics Formed Hard Brown Black Weight Source Bedscale Active Medications: Current Medications Acetaminophen (Tylenol 650mg/20.3ml Suspension) 650 mg GT Q6HR PRN PRN Reason: Mild Pain or Fever >101 Stop: 07/10/18 19:13 Last Admin: 05/11/18 21:39 Dose: 650 mg Acetaminophen/Hydrocodone Bitart ([place] 5mg/325mg) 1 tab GT Q6H PRN PRN Reason: Severe Pain Stop: 07/10/18 19:13 Acetylcysteine (Mucomyst 20%) 2 ml HHN Q6HRT JUAN FRANCISCO Stop: 07/11/18 00:59 Last Admin: 05/14/18 12:59 Dose: 2 ml Albuterol Sulfate (Albuterol 2.5mg/3ml Neb Ud) 2.5 mg HHN Q2HRT PRN PRN Reason: Shortness of Breath or Wheeze Stop: 07/10/18 19:22 Albuterol/Ipratropium (Duoneb Neb) 3 ml HHN Q6HRT JUAN FRANCISCO Stop: 07/11/18 00:59 Last Admin: 05/14/18 12:59 Dose: 3 ml Albuterol/Ipratropium (Duoneb Neb) 3 ml HHN Q2HRT PRN PRN Reason: Wheezing Stop: 07/10/18 19:13 Amlodipine Besylate (Norvasc) 5 mg GT DAILY REPLACED BY [facility] Stop: 07/11/18 08:59 Last Admin: 05/14/18 09:31 Dose: 5 mg Benztropine Mesylate (Cogentin) 1 mg GT BID REPLACED BY [facility] Stop: 07/11/18 08:59 Last Admin: 05/14/18 16:38 Dose: 1 mg Carbidopa/Levodopa (Sinemet 25mg-100 Mg) 1 tab GT DAILY REPLACED BY [facility] Stop: 07/11/18 08:59 Last Admin: 05/14/18 09:30 Dose: 1 tab Chlorhexidine Gluconate (Peridex) 15 ml MM 0800,2000 REPLACED BY [facility] Stop: 07/10/18 19:59 Last Admin: 05/14/18 09:32 Dose: 15 ml Clonazepam (Klonopin) 0.5 mg GT BID REPLACED BY [facility]; Protocol Stop: 07/11/18 08:59 Last Admin: 05/14/18 16:38 Dose: 0.5 mg Docusate Sodium (Colace) 250 mg PO BID REPLACED BY [facility] Stop: 07/11/18 08:59 Last Admin: 05/14/18 16:38 Dose: 250 mg Ferrous Sulfate (Iron) 330 mg GT DAILY REPLACED BY [facility] Stop: 07/11/18 08:59 Last Admin: 05/14/18 09:30 Dose: 330 mg Gemfibrozil (Lopid) 600 mg GT BID REPLACED BY [facility] Stop: 07/11/18 08:59 Last Admin: 05/14/18 16:38 Dose: 600 mg Sodium Chloride (Nacl 0.9%) 1,000 mls @ 80 mls/hr IV .[id number] REPLACED BY [facility] Stop: 07/10/18 19:29 Last Admin: 05/14/18 16:48 Dose: 80 mls/hr Piperacillin Sod/Tazobactam (Sod 2.25 gm/ Sodium Chloride) 100 mls @ 100 mls/ hr IV Q8HR REPLACED BY [facility] Stop: 07/10/18 20:59 Last Admin: 05/14/18 13:44 Dose: 100 mls/hr Amikacin Sulfate 500 mg/ (Dextrose) 102 mls @ 200 mls/hr IV Q24HR REPLACED BY [facility] Stop: 07/13/18 14:59 Last Admin: 05/14/18 15:44 Dose: 200 mls/hr Insulin Aspart (Novolog) 0 units SUBQ Q6H REPLACED BY [facility]; Protocol Stop: 07/11/18 00:00 Last Admin: 05/14/18 13:44 Dose: 2 units Insulin Human Isoph/Insulin Regular (Novolin 70/30) 22 units SUBQ HS REPLACED BY [facility]; Protocol Stop: 07/10/18 20:59 Last Admin: 05/13/18 21:45 Dose: 22 units Insulin Human Isoph/Insulin Regular (Novolin 70/30) 45 units SUBQ DAILY REPLACED BY [facility]; Protocol Stop: 07/11/18 08:59 Last Admin: 05/14/18 09:34 Dose: 45 units Ipratropium [place] (Atrovent Neb 0.5mg/2.5ml) 0.5 mg HHN Q2HRT PRN PRN Reason: Shortness of Breath or Wheeze Stop: 07/10/18 19:22 Lactobacillus Rhamnosus (Culturelle 15b) 1 each GT DAILY REPLACED BY [facility] Stop: 07/11/18 08:59 Last Admin: 05/14/18 09:30 Dose: 1 each Lactulose (Cephulac) 20 gm GT PRN PRN PRN Reason: BOWEL MANAGEMENT Stop: 07/10/18 19:13 Levetiracetam (Keppra) 1,000 mg GT Q12HR JUAN FRANCISCO Stop: 07/11/18 08:59 Last Admin: 05/14/18 09:31 Dose: 1,000 mg Levothyroxine Sodium (Synthroid) 0.1 mg GT QDAC JUAN FRANCISCO Stop: 07/11/18 07:29 Last Admin: 05/14/18 09:30 Dose: 0.1 mg Lorazepam (Ativan) 1 mg IV Q4H PRN; Protocol PRN Reason: Seizure Stop: 07/10/18 19:22 Metoclopramide HCl (Reglan) 10 mg GT Q8HR JUAN FRANCISCO Stop: 07/12/18 12:59 Last Admin: 05/14/18 13:44 Dose: 10 mg Miscellaneous (Calcium Alginate [Juan]) 1 each TP DAILY JUAN FRANCISCO Stop: 07/11/18 08:59 Miscellaneous (Collagenase Clostridium Hist. [Santyl]) 1 appl TP DAILY REPLACED BY [facility] Stop: 07/11/18 08:59 Miscellaneous (Petrolatum,White/Lanolin [Vitamin A And D Ointment]) 113 gm TP DAILY JUAN FRANCISCO Stop: 07/11/18 08:59 Miscellaneous (Amikacin Iv Per Pharmacy) 1 ea MC PRN PRN PRN Reason: PROTOCOL Stop: 07/12/18 15:36 Ondansetron HCl (Zofran) 4 mg IV Q8H PRN PRN Reason: Nausea / Vomiting Stop: 07/10/18 19:23 Pantoprazole Sodium (Protonix) 40 mg IVP BID JUAN FRANCISCO Stop: 07/11/18 08:59 Last Admin: 05/14/18 16:39 Dose: 40 mg Simvastatin (Zocor) 20 mg PO HS JUAN FRANCISCO; Protocol Stop: 07/10/18 20:59 Last Admin: 05/13/18 21:10 Dose: 20 mg Sucralfate (Carafate) 1 gm GT QID JUAN FRANCISCO Stop: 07/10/18 20:59 Last Admin: 05/14/18 16:38 Dose: 1 gm Zinc Sulfate (Zinc Sulfate) 220 mg GT DAILY JUAN FRANCISCO Stop: 07/11/18 08:59 Last Admin: 05/14/18 09:31 Dose: 220 mg - Procedures Procedures: Procedures Procedure Code Date AIRWAYS SURGICAL PROCEDURE 00275 03/03/16 BLOOD TRANSFUSION SERVICE 28074 09/27/17 CHANGE FEEDING DEVICE IN UP INTEST TRACT, ELA TEACHER APPROACH [id number] 12/10/16 CHANGE GASTROSTOMY TUBE 08094 06/06/13 CONTINUOUS INVASIVE MECHANICAL VENTILATION <96 CONSEC HRS 96.71 02/02/13 CONTINUOUS INVASIVE MECHANICAL VENTILATION =/>96 CONSEC HRS 96.72 06/06/13 [place] [address] 03/03/16 IMMUNIZATION ADMIN 10656 03/03/16 INFLUENZA VACCINATION 99.52 02/02/13 INSERT NON-TUNNEL CV CATH 71529 03/03/16 INSERTION OF INFUSION DEV INTO SUP VENA CAVA, PERC APPROACH [id number] 03/03/16 INSJ PICC 5 YR+ W/O IMAGING 27626 02/02/13 INTRODUCTION OF SERUM/TOX/VACCINE INTO MUSCLE, PERC APPROACH [id number] 03/03/16 OTHER GASTROSTOMY 43.19 06/03/10 REPLACE GASTROSTOMY TUBE 97.02 06/06/13 RESPIRATORY VENTILATION, 24-96 CONSECUTIVE HOURS [id number] 05/11/18 RESPIRATORY VENTILATION, GREATER THAN 96 CONSECUTIVE HOURS [id number] 09/27/17 TRANSFUSE NONAUT RED BLOOD CELLS IN PERIPH VEIN, PERC [id number] 09/27/17 VACCINATION NEC 99.55 02/02/13 VENOUS CATHETERIZATION NEC 38.93 02/02/13 VENT MGMT INPAT INIT DAY 01719 03/03/16 VENT MGMT INPAT SUBQ DAY 01347 03/03/16 Nutritional Asmnt/Malnutr-PDOC - Dietary Evaluation Malnutrition Findings (Please click <Entered> for more info): Nutritional Asmnt/Malnutrition Start: 05/12/18 14: 39 Text: Status: Complete Freq: Protocol: Document 05/12/18 14:39 RHAQUE (Rec: 05/12/18 14:59 RHAQUE [id number]) Nutritional Asmnt/Malnutrition Patient General Information Nutritional Screening High Risk Consult Diagnosis UTI, GI bleed Pertinent Medical Hx/Surgical Hx Ventilator dependent Resp failure, Parkinson's, Seizure, Dementia, Chronic Hydrocephalus w DANCE ENTERTAINER shunt, DM, Decubitus Ulcer, Subjective Information Consult received for Blood Glucose 233 with Hx of DM while on TF. Pt is trached to a ventilator. Current TF provides 1300ml/day volume, 1560 kcal/day, 78g Protein/ day. 1047 ml water total. Current Diet Order/ Nutrition Support Tube feeding Glucerna 1.2 65ml /hr x 20hrs Patient / S.O Not Indicated Pertinent Medications Docusate, Gemfibrozil, Insulin Aspart, Insulin Novolin, Lactulose, Synthroid, Metoclopramide, Ondansetron, Simvastatin Pertinent Labs (05/12) BUN 65, Na+ 135, Gluc 214, POC Gluc 241 Nutritional Hx/Data Height 1.63 m Height (Calculated Centimeters) 162.6 Current Weight (lbs) 78.018 kg Weight (Calculated Kilograms) 78.0 Weight (Calculated Grams) 38080.9 [place] Body Weight 120 % [place] Body Weight 135 Body Mass Index (BMI) 29.5 GI Symptoms Last BM No Noted B.M. Cultural/Ethnic/Faith Belief None indicated Skin Integrity/Comment: Germán Score 12. On Nursing flowsheet, pressure ulcer on coccyx noted. No wound care note. Unknown stage. Current %PO Negligible < 25% Estimated Nutritional Goals BEE in Kcals: Adj wt of IBW Calories/Kcals/Kg 25-30 Kcals Calculated 4133-4184 Protein: Adj wt of IBW Protein g/k.2-1.5 Protein Calculated 72-90 Fluid: ml 7093-3023 Nutritional Problem 1. Problem Problem Altered Nutritional related Lab values Etiology Uncontrolled hyperglycemia aeb Signs/Symptoms: (05/12) Gluc 214, POC Gluc 241 Malnutrition Alert Is there a minimum of two criteria No selected? Query Text:Check all the applicable criteria. A minimum of two criteria are recommended for diagnosis of either severe or non-severe malnutrition. Malnutrition Related to Morbid Obesity Malnutrition related to morbid obesity No Intervention/Recommendation Comments Continue Tube feeding as ordered. Pt already on DM tube feeding formula. MD to modify insulin regimen as needed for optimal glycemic control. Will modify nutrient needs based on wound care notes. Expected Outcomes/Goals Expected Outcomes/Goals 1. Labs WNL 2. Tube feeding continue to be tolerated 3. F/U in 2-3 days as HR (05/14 -)
--- NOTE | 2018-05-14 19:04 | GI Progress Note ---
Subjective - Review of Systems Service Date: 05/14/18 Subjective: PATIENT SEEN AND EXAMINED AT 1200. DELAYED NOTE ENTRY. SABRA GT FEEDS. MILD ASPIRATION OF SCANT BLOOD BY RN TODAY. Objective - Results Result Diagrams: 05/14/18 04:35 05/14/18 04:35 Recent Labs: Laboratory Last Values WBC 8.1 Th/cmm (4.8-10.8) 05/14/18 04:35 RBC 2.68 Mil/cmm (3.80-5.20) L 05/14/18 04:35 Hgb 7.1 gm/dL (12-16) L* 05/14/18 04:35 Hct 21.9 % (41.0-60) L 05/14/18 04:35 MCV 81.9 fl (81-100) 05/14/18 04:35 MCH 26.4 pg (27.0-31.0) L 05/14/18 04:35 MCHC Differential 32.2 pg (28.0-36.0) 05/14/18 04:35 RDW 16.9 % (11.5-20.0) 05/14/18 04:35 Plt Count 286 Th/cmm (150-400) 05/14/18 04:35 MPV 7.4 fl 05/14/18 04:35 Add Manual Diff YES 05/14/18 04:35 Neutrophils % CREDIT PORTFOLIO MANAGER 05/13/18 04:10 Band Neutrophils % 2 % (0-10) 05/14/18 04:35 Lymphocytes % CREDIT PORTFOLIO MANAGER 05/13/18 04:10 Monocytes % CREDIT PORTFOLIO MANAGER 05/13/18 04:10 Eosinophils % CREDIT PORTFOLIO MANAGER 05/13/18 04:10 Basophils % CREDIT PORTFOLIO MANAGER 05/13/18 04:10 Neutrophils (Manual) 80 % (40-80) 05/14/18 04:35 Lymphocytes 12 % (20-50) L 05/14/18 04:35 Monocytes 6 % (2-10) 05/14/18 04:35 Eosinophils 2 % (0-5) 05/12/18 07:10 Basophils 0 % (0-3) 05/12/18 07:10 Sodium 139 mEq/L (136-145) 05/14/18 04:35 Potassium 4.2 mEq/L (3.5-5.1) 05/14/18 04:35 Chloride 106 mEq/L (98-107) 05/14/18 04:35 Carbon Dioxide 22.1 mEq/L (21.0-31.0) 05/14/18 04:35 Anion Gap 15.1 (7.0-16.0) 05/14/18 04:35 BUN 50 mg/dL (7-25) H 05/14/18 04:35 Creatinine 1.3 mg/dL (0.6-1.2) H 05/14/18 04:35 Est GFR ( Amer) TNP 05/14/18 04:35 Est GFR (Non-Af Amer) TNP 05/14/18 04:35 BUN/Creatinine Ratio 38.5 05/14/18 04:35 Glucose 165 mg/dL (70-105) H 05/14/18 04:35 POC Glucose 173 MG/DL (70 - 105) H 05/14/18 17:52 Whole Bld Lactic Acid 1.45 mmol/L (0.60-1.99) 05/11/18 15:45 Calcium 8.4 mg/dL (8.6-10.3) L 05/14/18 04:35 Phosphorus 3.9 mg/dL (2.5-5.0) 05/11/18 15:45 Magnesium 2.7 mg/dL (1.9-2.7) 05/11/18 15:45 Iron 49 ug/dL (27-139) 05/12/18 07:10 TIBC 264 ug/dL (250-450) 05/12/18 07:10 Iron Saturation 19 % (15-55) 05/12/18 07:10 Unsaturated IBC 215 ug/dL (118-369) 05/12/18 07:10 Total Bilirubin 0.3 mg/dL (0.3-1.0) 05/11/18 15:45 AST 13 U/L (13-39) 05/11/18 15:45 ALT 10 U/L (7-52) 05/11/18 15:45 Alkaline Phosphatase 81 U/L (34-104) 05/11/18 15:45 Ammonia 59 umol/L (16-53) H 05/13/18 04:10 B-Natriuretic Peptide 84.7 pg/mL (5.0-100.0) 05/14/18 04:35 Total Protein 8.3 gm/dL (6.0-8.3) 05/11/18 15:45 Albumin 3.6 gm/dL (3.7-5.3) L 05/11/18 15:45 Globulin 4.7 gm/dL 05/11/18 15:45 Albumin/Globulin Ratio 0.8 (1.0-1.8) L 05/11/18 15:45 TSH 1.25 uIU/ml (0.34-5.60) 05/11/18 15:45 Urine Source CATH 05/11/18 16:50 Urine Color BROWN 05/11/18 16:50 Urine Clarity CLOUDY (CLEAR) H 05/11/18 16:50 Urine pH 7.0 (4.6 - 8.0) 05/11/18 16:50 Ur Specific [place] 1.010 (1.005-1.030) 05/11/18 16:50 Urine Protein 100 mg/dL (NEGATIVE) H 05/11/18 16:50 Urine Glucose (UA) NEGATIVE mg/dL (NEGATIVE) 05/11/18 16:50 Urine Ketones NEGATIVE mg/dL (NEGATIVE) 05/11/18 16:50 Urine Blood LARGE (NEGATIVE) H 05/11/18 16:50 Urine Nitrate NEGATIVE (NEGATIVE) 05/11/18 16:50 Urine Bilirubin SMALL (NEGATIVE) H 05/11/18 16:50 Urine Urobilinogen 0.2 E.U./dL (0.2 - 1.0) 05/11/18 16:50 Ur Leukocyte Esterase LARGE (NEGATIVE) H 05/11/18 16:50 Urine RBC 25-50 /hpf (0-5) H 05/11/18 16:50 Urine WBC 50-100 /hpf (0-5) H 05/11/18 16:50 Ur Epithelial Cells MODERATE /lpf (FEW) 05/11/18 16:50 Urine Bacteria 4+ /hpf (NONE SEEN) H 05/11/18 16:50 Urine Opiates Screen POSITIVE (NEGATIVE) H 05/11/18 16:50 Urine Methadone Screen NEGATIVE (NEGATIVE) 05/11/18 16:50 Ur Barbiturates Screen NEGATIVE (NEGATIVE) 05/11/18 16:50 Ur Tricyclics Screen NEGATIVE (NEGATIVE) 05/11/18 16:50 Ur Phencyclidine Scrn NEGATIVE (NEGATIVE) 05/11/18 16:50 Amphetamines Screen NEGATIVE (NEGATIVE) 05/11/18 16:50 U Methamphetamines Scrn NEGATIVE (NEGATIVE) 05/11/18 16:50 U Benzodiazepines Scrn NEGATIVE (NEGATIVE) 05/11/18 16:50 U Cocaine Metab Screen NEGATIVE (NEGATIVE) 05/11/18 16:50 U Cannabinoids Screen NEGATIVE (NEGATIVE) 05/11/18 16:50 Blood Type A POSITIVE 05/11/18 16:48 Rho(D) Type Cancelled 05/11/18 16:48 Antibody Screen NEGATIVE 05/11/18 16:48 Crossmatch See Detail 05/11/18 16:48 BBK History Checked Cancelled 05/11/18 16:48 - Physical Exam Vitals and I&O: Vital Signs Temp 98.8 F 05/14/18 18:00 Pulse 66 05/14/18 18:00 Resp 16 05/14/18 18:00 BP 127/58 05/14/18 18:00 Pulse Ox 100 05/14/18 18:00 Intake & Output 05/14/18 05/14/18 05/15/18 06:59 18:59 06:59 Intake Total 1020 1000 Output Total 1700 Balance -680 1000 Weight (lbs) 81.964 kg Intake: Intake, IV Amount 200 1000 Piperacillin Sodium/ 200 Tazobact 2.25 gm In Sodium Chloride 0.9% 100 ml @ 100 mls/hr IV Q8HR [facility] Rx#:[id number] Sodium Chloride 0.9% 1, 1000 000 ml @ 80 mls/hr IV . [id number] [facility] Rx#:[id number] Tube Feeding 520 Other 300 Output: Urine 1700 Other: # Bowel Movements 1 Stool Characteristics Formed Hard Brown Black Weight Source Bedscale Active Medications: Current Medications Acetaminophen (Tylenol 650mg/20.3ml Suspension) 650 mg GT Q6HR PRN PRN Reason: Mild Pain or Fever >101 Stop: 07/10/18 19:13 Last Admin: 05/11/18 21:39 Dose: 650 mg Acetaminophen/Hydrocodone Bitart ([place] 5mg/325mg) 1 tab GT Q6H PRN PRN Reason: Severe Pain Stop: 07/10/18 19:13 Acetylcysteine (Mucomyst 20%) 2 ml HHN Q6HRT [facility] Stop: 07/11/18 00:59 Last Admin: 05/14/18 12:59 Dose: 2 ml Albuterol Sulfate (Albuterol 2.5mg/3ml Neb Ud) 2.5 mg HHN Q2HRT PRN PRN Reason: Shortness of Breath or Wheeze Stop: 07/10/18 19:22 Albuterol/Ipratropium (Duoneb Neb) 3 ml HHN Q6HRT [facility] Stop: 07/11/18 00:59 Last Admin: 05/14/18 12:59 Dose: 3 ml Albuterol/Ipratropium (Duoneb Neb) 3 ml HHN Q2HRT PRN PRN Reason: Wheezing Stop: 07/10/18 19:13 Amlodipine Besylate (Norvasc) 5 mg GT DAILY [facility] Stop: 07/11/18 08:59 Last Admin: 05/14/18 09:31 Dose: 5 mg Benztropine Mesylate (Cogentin) 1 mg GT BID [facility] Stop: 07/11/18 08:59 Last Admin: 05/14/18 16:38 Dose: 1 mg Carbidopa/Levodopa (Sinemet 25mg-100 Mg) 1 tab GT DAILY [facility] Stop: 07/11/18 08:59 Last Admin: 05/14/18 09:30 Dose: 1 tab Chlorhexidine Gluconate (Peridex) 15 ml MM 0800,2000 [facility] Stop: 07/10/18 19:59 Last Admin: 05/14/18 09:32 Dose: 15 ml Clonazepam (Klonopin) 0.5 mg GT BID [facility]; Protocol Stop: 07/11/18 08:59 Last Admin: 05/14/18 16:38 Dose: 0.5 mg Docusate Sodium (Colace) 250 mg PO BID [facility] Stop: 07/11/18 08:59 Last Admin: 05/14/18 16:38 Dose: 250 mg Ferrous Sulfate (Iron) 330 mg GT DAILY [facility] Stop: 07/11/18 08:59 Last Admin: 05/14/18 09:30 Dose: 330 mg Gemfibrozil (Lopid) 600 mg GT BID [facility] Stop: 07/11/18 08:59 Last Admin: 05/14/18 16:38 Dose: 600 mg Sodium Chloride (Nacl 0.9%) 1,000 mls @ 80 mls/hr IV .[id number] [facility] Stop: 07/10/18 19:29 Last Admin: 05/14/18 16:48 Dose: 80 mls/hr Piperacillin Sod/Tazobactam (Sod 2.25 gm/ Sodium Chloride) 100 mls @ 100 mls/ hr IV Q8HR [facility] Stop: 07/10/18 20:59 Last Admin: 05/14/18 13:44 Dose: 100 mls/hr Amikacin Sulfate 500 mg/ (Dextrose) 102 mls @ 200 mls/hr IV Q24HR [facility] Stop: 07/13/18 14:59 Last Admin: 05/14/18 15:44 Dose: 200 mls/hr Insulin Aspart (Novolog) 0 units SUBQ Q6H [facility]; Protocol Stop: 07/11/18 00:00 Last Admin: 05/14/18 17:58 Dose: 2 units Insulin Human Isoph/Insulin Regular (Novolin 70/30) 22 units SUBQ HS [facility]; Protocol Stop: 07/10/18 20:59 Last Admin: 05/13/18 21:45 Dose: 22 units Insulin Human Isoph/Insulin Regular (Novolin 70/30) 45 units SUBQ DAILY [facility]; Protocol Stop: 07/11/18 08:59 Last Admin: 05/14/18 09:34 Dose: 45 units Ipratropium [place] (Atrovent Neb 0.5mg/2.5ml) 0.5 mg HHN Q2HRT PRN PRN Reason: Shortness of Breath or Wheeze Stop: 07/10/18 19:22 Lactobacillus Rhamnosus (Culturelle 15b) 1 each GT DAILY [facility] Stop: 07/11/18 08:59 Last Admin: 05/14/18 09:30 Dose: 1 each Lactulose (Cephulac) 20 gm GT PRN PRN PRN Reason: BOWEL MANAGEMENT Stop: 07/10/18 19:13 Levetiracetam (Keppra) 1,000 mg GT Q12HR [facility] Stop: 07/11/18 08:59 Last Admin: 05/14/18 09:31 Dose: 1,000 mg Levothyroxine Sodium (Synthroid) 0.1 mg GT QDAC [facility] Stop: 07/11/18 07:29 Last Admin: 05/14/18 09:30 Dose: 0.1 mg Lorazepam (Ativan) 1 mg IV Q4H PRN; Protocol PRN Reason: Seizure Stop: 07/10/18 19:22 Metoclopramide HCl (Reglan) 10 mg GT Q8HR [facility] Stop: 07/12/18 12:59 Last Admin: 05/14/18 13:44 Dose: 10 mg Miscellaneous (Calcium Alginate [Juan]) 1 each TP DAILY [facility] Stop: 07/11/18 08:59 Miscellaneous (Collagenase Clostridium Hist. [Santyl]) 1 appl TP DAILY [facility] Stop: 07/11/18 08:59 Miscellaneous (Petrolatum,White/Lanolin [Vitamin A And D Ointment]) 113 gm TP DAILY [facility] Stop: 07/11/18 08:59 Miscellaneous (Amikacin Iv Per Pharmacy) 1 ea MC PRN PRN PRN Reason: PROTOCOL Stop: 07/12/18 15:36 Ondansetron HCl (Zofran) 4 mg IV Q8H PRN PRN Reason: Nausea / Vomiting Stop: 07/10/18 19:23 Pantoprazole Sodium (Protonix) 40 mg IVP BID [facility] Stop: 07/11/18 08:59 Last Admin: 05/14/18 16:39 Dose: 40 mg Simvastatin (Zocor) 20 mg PO HS [facility]; Protocol Stop: 07/10/18 20:59 Last Admin: 05/13/18 21:10 Dose: 20 mg Sucralfate (Carafate) 1 gm GT QID [facility] Stop: 07/10/18 20:59 Last Admin: 05/14/18 16:38 Dose: 1 gm Zinc Sulfate (Zinc Sulfate) 220 mg GT DAILY [facility] Stop: 07/11/18 08:59 Last Admin: 05/14/18 09:31 Dose: 220 mg General: No acute distress Neck: Supple Cardiovascular: Regular rate Lungs: Normal air movement Abdomen: Bowel sounds, Soft, Other (INTACT GT), no Tender - Procedures Procedures: Procedures Procedure Code Date AIRWAYS SURGICAL PROCEDURE 47744 03/03/16 BLOOD TRANSFUSION SERVICE 06251 09/27/17 CHANGE FEEDING DEVICE IN UP INTEST TRACT, DELIVERY MAN APPROACH [id number] 12/10/16 CHANGE GASTROSTOMY TUBE 39398 06/06/13 CONTINUOUS INVASIVE MECHANICAL VENTILATION <96 CONSEC HRS 96.71 02/02/13 CONTINUOUS INVASIVE MECHANICAL VENTILATION =/>96 CONSEC HRS 96.72 06/06/13 [place] [address] 03/03/16 IMMUNIZATION ADMIN 75431 03/03/16 INFLUENZA VACCINATION 99.52 02/02/13 INSERT NON-TUNNEL CV CATH 50588 03/03/16 INSERTION OF INFUSION DEV INTO SUP VENA CAVA, PERC APPROACH [id number] 03/03/16 INSJ PICC 5 YR+ W/O IMAGING 87423 02/02/13 INTRODUCTION OF SERUM/TOX/VACCINE INTO MUSCLE, PERC APPROACH [id number] 03/03/16 OTHER GASTROSTOMY 43.19 06/03/10 REPLACE GASTROSTOMY TUBE 97.02 06/06/13 RESPIRATORY VENTILATION, 24-96 CONSECUTIVE HOURS [id number] 05/11/18 RESPIRATORY VENTILATION, GREATER THAN 96 CONSECUTIVE HOURS [id number] 09/27/17 TRANSFUSE NONAUT RED BLOOD CELLS IN PERIPH VEIN, PERC [id number] 09/27/17 VACCINATION NEC 99.55 02/02/13 VENOUS CATHETERIZATION NEC 38.93 02/02/13 VENT MGMT INPAT INIT DAY 19072 03/03/16 VENT MGMT INPAT SUBQ DAY 28848 03/03/16 Assessment/Plan - Assessment Assessment: IMPRESSION: 1. ANEMIA, SEVERE, S/P TRANSFUSION. MULTIFACTORIAL, BUT MORE LIKELY DUE TO HEMATURIA THAN GI BLOOD LOSS. SCANT BLOOD ASPIRATED VIA GT IS LIKELY TRAUMATIC DUE TO UNDERLYING GASTRITIS. ALSO HAS ANEMIA OF CHRONIC DISEASE, ETC. 2. HEMATURIA. 3. DYSPHAGIA, S/P GT. RECS: 1. MONITOR HGB; TRANSFUSE PRN. 2. GT FEEDS SABRA. 3. PROTONIX. 4. REGLAN. 5. HEMATURIA WORKUP AND TREATMENT PER UROLOGY. 6. DEFER ENDOSCOPIC WORKUP FOR NOW UNLESS OVERT GI BLEEDING.
[2018-05-15] MEDS: INSULIN ASPART, RECOMBINANT 100 UNITS/ML SUBQ SCH ×4 (00:36→17:16)
[2018-05-15] MEDS: Albuterol/Ipratropium Neb 3 ML AERS HHN SCH ×4 (01:12→19:18)
[2018-05-15 04:45] LABS: HEMATOCRIT 22.7 % (41.0-60); MEAN CORPUSCULAR HEMOGLOBIN 26.8 pg (27.0-31.0); MEAN CORPUSCULAR HGB CONC 31.8 pg (28.0-36.0); MEAN PLATELET VOLUME 7.4 fl; PLATELET COUNT 281 Th/cmm (150-400); RED BLOOD COUNT 2.71 Mil/cmm (3.80-5.20); RED CELL DISTRIBUTION WIDTH 16.9 % (11.5-20.0)
[2018-05-15 05:08] LABS: HEMOGLOBIN 7.2 gm/dL (12-16)
[2018-05-15] MEDS: Piperacillin Sodium/Tazobact 2.25 GM in Sodium Chloride 0.9% 100 ML IV SCH ×3 (05:13→21:43)
[2018-05-15 05:15] LABS: ANION GAP 15.1 (7.0-16.0); BUN - UREA NITROGEN 37 mg/dL (7-25); CALCIUM SERUM 8.4 mg/dL (8.6-10.3); CARBON DIOXIDE 21.1 mEq/L (21.0-31.0); CHLORIDE 109 mEq/L (98-107); GLUCOSE 173 mg/dL (70-105); POTASSIUM SERUM 4.2 mEq/L (3.5-5.1); SODIUM SERUM 141 mEq/L (136-145)
[2018-05-15 06:09] LABS: FOLIC ACID >20.0 ng/mL (>3.0)
[2018-05-15 06:19] LABS: BAND NEUTROPHILE 0 % (0-10); LYMPHOCYTE 14 % (20-50); MONOCYTE 6 % (2-10); NEUTROPHILS 80 % (40-80)
[2018-05-15] MEDS: Chlorhexidine Gluconate 0.12% 15mL Mouthwash MM SCH ×2 (09:00→20:30)
--- NOTE | 2018-05-15 09:02 | GI Progress Note ---
Subjective - Review of Systems Service Date: 05/15/18 Subjective: SABRA GT FEEDS. NO OVERT GI BLEEDING. Objective - Results Result Diagrams: 05/15/18 04:20 05/15/18 04:20 Recent Labs: Laboratory Last Values WBC 7.0 Th/cmm (4.8-10.8) 05/15/18 04:20 RBC 2.71 Mil/cmm (3.80-5.20) L 05/15/18 04:20 Hgb 7.2 gm/dL (12-16) L* 05/15/18 04:20 Hct 22.7 % (41.0-60) L 05/15/18 04:20 MCV 84.0 fl (81-100) 05/15/18 04:20 MCH 26.8 pg (27.0-31.0) L 05/15/18 04:20 MCHC Differential 31.8 pg (28.0-36.0) 05/15/18 04:20 RDW 16.9 % (11.5-20.0) 05/15/18 04:20 Plt Count 281 Th/cmm (150-400) 05/15/18 04:20 MPV 7.4 fl 05/15/18 04:20 Add Manual Diff YES 05/15/18 04:20 Neutrophils % ASSISTANT FILM EDITOR 05/13/18 04:10 Band Neutrophils % 0 % (0-10) 05/15/18 04:20 Lymphocytes % ASSISTANT FILM EDITOR 05/13/18 04:10 Monocytes % ASSISTANT FILM EDITOR 05/13/18 04:10 Eosinophils % ASSISTANT FILM EDITOR 05/13/18 04:10 Basophils % ASSISTANT FILM EDITOR 05/13/18 04:10 Neutrophils (Manual) 80 % (40-80) 05/15/18 04:20 Lymphocytes 14 % (20-50) L 05/15/18 04:20 Monocytes 6 % (2-10) 05/15/18 04:20 Eosinophils 2 % (0-5) 05/12/18 07:10 Basophils 0 % (0-3) 05/12/18 07:10 Sodium 141 mEq/L (136-145) 05/15/18 04:20 Potassium 4.2 mEq/L (3.5-5.1) 05/15/18 04:20 Chloride 109 mEq/L (98-107) H 05/15/18 04:20 Carbon Dioxide 21.1 mEq/L (21.0-31.0) 05/15/18 04:20 Anion Gap 15.1 (7.0-16.0) 05/15/18 04:20 BUN 37 mg/dL (7-25) H 05/15/18 04:20 Creatinine 1.0 mg/dL (0.6-1.2) 05/15/18 04:20 Est GFR ( Amer) TNP 05/15/18 04:20 Est GFR (Non-Af Amer) TNP 05/15/18 04:20 BUN/Creatinine Ratio 37.0 05/15/18 04:20 Glucose 173 mg/dL (70-105) H 05/15/18 04:20 POC Glucose 148 MG/DL (70 - 105) H 05/15/18 05:12 Whole Bld Lactic Acid 1.45 mmol/L (0.60-1.99) 05/11/18 15:45 Calcium 8.4 mg/dL (8.6-10.3) L 05/15/18 04:20 Phosphorus 3.9 mg/dL (2.5-5.0) 05/11/18 15:45 Magnesium 2.7 mg/dL (1.9-2.7) 05/11/18 15:45 Iron 49 ug/dL (27-139) 05/12/18 07:10 TIBC 264 ug/dL (250-450) 05/12/18 07:10 Iron Saturation 19 % (15-55) 05/12/18 07:10 Unsaturated IBC 215 ug/dL (118-369) 05/12/18 07:10 Total Bilirubin 0.3 mg/dL (0.3-1.0) 05/11/18 15:45 AST 13 U/L (13-39) 05/11/18 15:45 ALT 10 U/L (7-52) 05/11/18 15:45 Alkaline Phosphatase 81 U/L (34-104) 05/11/18 15:45 Ammonia 59 umol/L (16-53) H 05/13/18 04:10 B-Natriuretic Peptide 84.7 pg/mL (5.0-100.0) 05/14/18 04:35 Total Protein 8.3 gm/dL (6.0-8.3) 05/11/18 15:45 Albumin 3.6 gm/dL (3.7-5.3) L 05/11/18 15:45 Globulin 4.7 gm/dL 05/11/18 15:45 Albumin/Globulin Ratio 0.8 (1.0-1.8) L 05/11/18 15:45 Vitamin B12 1516 pg/mL (232-1245) H 05/12/18 07:10 Folic Acid >20.0 ng/mL (>3.0) 05/12/18 07:10 TSH 1.25 uIU/ml (0.34-5.60) 05/11/18 15:45 Urine Source CATH 05/11/18 16:50 Urine Color BROWN 05/11/18 16:50 Urine Clarity CLOUDY (CLEAR) H 05/11/18 16:50 Urine pH 7.0 (4.6 - 8.0) 05/11/18 16:50 Ur Specific [place] 1.010 (1.005-1.030) 05/11/18 16:50 Urine Protein 100 mg/dL (NEGATIVE) H 05/11/18 16:50 Urine Glucose (UA) NEGATIVE mg/dL (NEGATIVE) 05/11/18 16:50 Urine Ketones NEGATIVE mg/dL (NEGATIVE) 05/11/18 16:50 Urine Blood LARGE (NEGATIVE) H 05/11/18 16:50 Urine Nitrate NEGATIVE (NEGATIVE) 05/11/18 16:50 Urine Bilirubin SMALL (NEGATIVE) H 05/11/18 16:50 Urine Urobilinogen 0.2 E.U./dL (0.2 - 1.0) 05/11/18 16:50 Ur Leukocyte Esterase LARGE (NEGATIVE) H 05/11/18 16:50 Urine RBC 25-50 /hpf (0-5) H 05/11/18 16:50 Urine WBC 50-100 /hpf (0-5) H 05/11/18 16:50 Ur Epithelial Cells MODERATE /lpf (FEW) 05/11/18 16:50 Urine Bacteria 4+ /hpf (NONE SEEN) H 05/11/18 16:50 Urine Opiates Screen POSITIVE (NEGATIVE) H 05/11/18 16:50 Urine Methadone Screen NEGATIVE (NEGATIVE) 05/11/18 16:50 Ur Barbiturates Screen NEGATIVE (NEGATIVE) 05/11/18 16:50 Ur Tricyclics Screen NEGATIVE (NEGATIVE) 05/11/18 16:50 Levetiracetam 51.3 ug/mL (10.0-40.0) H 05/11/18 15:45 Ur Phencyclidine Scrn NEGATIVE (NEGATIVE) 05/11/18 16:50 Amphetamines Screen NEGATIVE (NEGATIVE) 05/11/18 16:50 U Methamphetamines Scrn NEGATIVE (NEGATIVE) 05/11/18 16:50 U Benzodiazepines Scrn NEGATIVE (NEGATIVE) 05/11/18 16:50 U Cocaine Metab Screen NEGATIVE (NEGATIVE) 05/11/18 16:50 U Cannabinoids Screen NEGATIVE (NEGATIVE) 05/11/18 16:50 Blood Type A POSITIVE 05/11/18 16:48 Rho(D) Type Cancelled 05/11/18 16:48 Antibody Screen NEGATIVE 05/11/18 16:48 Crossmatch See Detail 05/11/18 16:48 BBK History Checked Cancelled 05/11/18 16:48 - Physical Exam Vitals and I&O: Vital Signs Temp 98.6 F 05/15/18 04:00 Pulse 60 05/15/18 07:06 Resp 16 05/15/18 06:00 BP 147/66 05/15/18 06:00 Pulse Ox 100 05/15/18 08:00 Intake & Output 05/14/18 05/15/18 05/15/18 18:59 06:59 18:59 Intake Total 1100 800 950 Output Total 1525 1050 Balance 1100 -725 -100 Weight (lbs) 82.01 kg 81.284 kg Intake: Intake, IV Amount 1100 100 Piperacillin Sodium/ 100 100 Tazobact 2.25 gm In Sodium Chloride 0.9% 100 ml @ 100 mls/hr IV Q8HR [facility] Rx#:[id number] Sodium Chloride 0.9% 1, 1000 000 ml @ 80 mls/hr IV . [id number] [facility] Rx#:[id number] Oral 0 Tube Feeding 520 650 Other 180 300 Output: Urine 775 1050 Other 750 Other: # Bowel Movements 1 1 Stool Characteristics Soft Soft Brown Brown Black Black Green Green Weight Source Bedscale Bedscale Active Medications: Current Medications Acetaminophen (Tylenol 650mg/20.3ml Suspension) 650 mg GT Q6HR PRN PRN Reason: Mild Pain or Fever >101 Stop: 07/10/18 19:13 Last Admin: 05/11/18 21:39 Dose: 650 mg Acetaminophen/Hydrocodone Bitart ([place] 5mg/325mg) 1 tab GT Q6H PRN PRN Reason: Severe Pain Stop: 07/10/18 19:13 Acetylcysteine (Mucomyst 20%) 2 ml HHN Q6HRT [facility] Stop: 07/11/18 00:59 Last Admin: 05/15/18 07:06 Dose: 2 ml Albuterol Sulfate (Albuterol 2.5mg/3ml Neb Ud) 2.5 mg HHN Q2HRT PRN PRN Reason: Shortness of Breath or Wheeze Stop: 07/10/18 19:22 Albuterol/Ipratropium (Duoneb Neb) 3 ml HHN Q6HRT [facility] Stop: 07/11/18 00:59 Last Admin: 05/15/18 07:06 Dose: 3 ml Albuterol/Ipratropium (Duoneb Neb) 3 ml HHN Q2HRT PRN PRN Reason: Wheezing Stop: 07/10/18 19:13 Amlodipine Besylate (Norvasc) 5 mg GT DAILY [facility] Stop: 07/11/18 08:59 Last Admin: 05/14/18 09:31 Dose: 5 mg Benztropine Mesylate (Cogentin) 1 mg GT BID [facility] Stop: 07/11/18 08:59 Last Admin: 05/14/18 16:38 Dose: 1 mg Carbidopa/Levodopa (Sinemet 25mg-100 Mg) 1 tab GT DAILY [facility] Stop: 07/11/18 08:59 Last Admin: 05/14/18 09:30 Dose: 1 tab Chlorhexidine Gluconate (Peridex) 15 ml MM 0800,2000 [facility] Stop: 07/10/18 19:59 Last Admin: 05/14/18 20:48 Dose: 15 ml Clonazepam (Klonopin) 0.5 mg GT BID [facility]; Protocol Stop: 07/11/18 08:59 Last Admin: 05/14/18 16:38 Dose: 0.5 mg Docusate Sodium (Colace) 250 mg PO BID [facility] Stop: 07/11/18 08:59 Last Admin: 05/14/18 16:38 Dose: 250 mg Ferrous Sulfate (Iron) 330 mg GT DAILY [facility] Stop: 07/11/18 08:59 Last Admin: 05/14/18 09:30 Dose: 330 mg Gemfibrozil (Lopid) 600 mg GT BID [facility] Stop: 07/11/18 08:59 Last Admin: 05/14/18 16:38 Dose: 600 mg Sodium Chloride (Nacl 0.9%) 1,000 mls @ 80 mls/hr IV .[id number] [facility] Stop: 07/10/18 19:29 Last Admin: 05/14/18 16:48 Dose: 80 mls/hr Piperacillin Sod/Tazobactam (Sod 2.25 gm/ Sodium Chloride) 100 mls @ 100 mls/ hr IV Q8HR [facility] Stop: 07/10/18 20:59 Last Admin: 05/15/18 05:13 Dose: 100 mls/hr Amikacin Sulfate 500 mg/ (Dextrose) 102 mls @ 200 mls/hr IV Q24HR [facility] Stop: 07/13/18 14:59 Last Admin: 05/14/18 15:44 Dose: 200 mls/hr Insulin Aspart (Novolog) 0 units SUBQ Q6H [facility]; Protocol Stop: 07/11/18 00:00 Last Admin: 05/15/18 05:21 Dose: Not Given Insulin Human Isoph/Insulin Regular (Novolin 70/30) 22 units SUBQ HS [facility]; Protocol Stop: 07/10/18 20:59 Last Admin: 05/14/18 20:46 Dose: 22 units Insulin Human Isoph/Insulin Regular (Novolin 70/30) 45 units SUBQ DAILY [facility]; Protocol Stop: 07/11/18 08:59 Last Admin: 05/14/18 09:34 Dose: 45 units Ipratropium [place] (Atrovent Neb 0.5mg/2.5ml) 0.5 mg HHN Q2HRT PRN PRN Reason: Shortness of Breath or Wheeze Stop: 07/10/18 19:22 Lactobacillus Rhamnosus (Culturelle 15b) 1 each GT DAILY [facility] Stop: 07/11/18 08:59 Last Admin: 05/14/18 09:30 Dose: 1 each Lactulose (Cephulac) 20 gm GT PRN PRN PRN Reason: BOWEL MANAGEMENT Stop: 07/10/18 19:13 Levetiracetam (Keppra) 1,000 mg GT Q12HR [facility] Stop: 07/11/18 08:59 Last Admin: 05/14/18 20:45 Dose: 1,000 mg Levothyroxine Sodium (Synthroid) 0.1 mg GT QDAC [facility] Stop: 07/11/18 07:29 Last Admin: 05/14/18 09:30 Dose: 0.1 mg Lorazepam (Ativan) 1 mg IV Q4H PRN; Protocol PRN Reason: Seizure Stop: 07/10/18 19:22 Metoclopramide HCl (Reglan) 10 mg GT Q8HR [facility] Stop: 07/12/18 12:59 Last Admin: 05/15/18 05:14 Dose: 10 mg Miscellaneous (Calcium Alginate [Juan]) 1 each TP DAILY [facility] Stop: 07/11/18 08:59 Miscellaneous (Collagenase Clostridium Hist. [Santyl]) 1 appl TP DAILY [facility] Stop: 07/11/18 08:59 Miscellaneous (Petrolatum,White/Lanolin [Vitamin A And D Ointment]) 113 gm TP DAILY [facility] Stop: 07/11/18 08:59 Miscellaneous (Amikacin Iv Per Pharmacy) 1 ea PRN PRN PRN Reason: PROTOCOL Stop: 07/12/18 15:36 Ondansetron HCl (Zofran) 4 mg IV Q8H PRN PRN Reason: Nausea / Vomiting Stop: 07/10/18 19:23 Pantoprazole Sodium (Protonix) 40 mg IVP BID [facility] Stop: 07/11/18 08:59 Last Admin: 05/14/18 16:39 Dose: 40 mg Simvastatin (Zocor) 20 mg PO HS [facility]; Protocol Stop: 07/10/18 20:59 Last Admin: 05/14/18 20:45 Dose: 20 mg Sucralfate (Carafate) 1 gm GT QID [facility] Stop: 07/10/18 20:59 Last Admin: 05/14/18 20:44 Dose: 1 gm Zinc Sulfate (Zinc Sulfate) 220 mg GT DAILY [facility] Stop: 07/11/18 08:59 Last Admin: 05/14/18 09:31 Dose: 220 mg General: No acute distress Neck: Supple Cardiovascular: Regular rate Lungs: Normal air movement Abdomen: Bowel sounds, Soft, Other (INTACT GT), no Tender - Procedures Procedures: Procedures Procedure Code Date AIRWAYS SURGICAL PROCEDURE 88049 03/03/16 BLOOD TRANSFUSION SERVICE 63815 09/27/17 CHANGE FEEDING DEVICE IN UP INTEST TRACT, FEED PREPARATION OPERATOR APPROACH [id number] 12/10/16 CHANGE GASTROSTOMY TUBE 51765 06/06/13 CONTINUOUS INVASIVE MECHANICAL VENTILATION <96 CONSEC HRS 96.71 02/02/13 CONTINUOUS INVASIVE MECHANICAL VENTILATION =/>96 CONSEC HRS 96.72 06/06/13 [place] [id number] 03/03/16 IMMUNIZATION ADMIN 31972 03/03/16 INFLUENZA VACCINATION 99.52 02/02/13 INSERT NON-TUNNEL CV CATH 73792 03/03/16 INSERTION OF INFUSION DEV INTO SUP VENA CAVA, PERC APPROACH [id number] 03/03/16 INSJ PICC 5 YR+ W/O IMAGING 76388 02/02/13 INTRODUCTION OF SERUM/TOX/VACCINE INTO MUSCLE, PERC APPROACH [id number] 03/03/16 OTHER GASTROSTOMY 43.19 06/03/10 REPLACE GASTROSTOMY TUBE 97.02 06/06/13 RESPIRATORY VENTILATION, 24-96 CONSECUTIVE HOURS [id number] 05/11/18 RESPIRATORY VENTILATION, GREATER THAN 96 CONSECUTIVE HOURS [id number] 09/27/17 TRANSFUSE NONAUT RED BLOOD CELLS IN PERIPH VEIN, PERC [id number] 09/27/17 VACCINATION NEC 99.55 02/02/13 VENOUS CATHETERIZATION NEC 38.93 02/02/13 VENT MGMT INPAT INIT DAY 39393 03/03/16 VENT MGMT INPAT SUBQ DAY 06210 03/03/16 Assessment/Plan - Assessment Assessment: IMPRESSION: 1. ANEMIA, SEVERE, S/P TRANSFUSION. MULTIFACTORIAL, BUT MORE LIKELY DUE TO HEMATURIA THAN GI BLOOD LOSS. SCANT BLOOD ASPIRATED VIA GT IS LIKELY TRAUMATIC DUE TO UNDERLYING GASTRITIS. ALSO HAS ANEMIA OF CHRONIC DISEASE, ETC. 2. HEMATURIA. 3. DYSPHAGIA, S/P GT. RECS: 1. MONITOR HGB; TRANSFUSE PRN. 2. GT FEEDS SABRA. 3. PROTONIX. 4. REGLAN. 5. HEMATURIA WORKUP AND TREATMENT PER UROLOGY. 6. DEFER ENDOSCOPIC WORKUP FOR NOW UNLESS OVERT GI BLEEDING.
[2018-05-15] MEDS: Levothyroxine 0.1 Mg Tab GT SCH (09:39)
[2018-05-15] MEDS: Benztropine 1 MG TAB GT SCH ×2 (09:39→17:16)
[2018-05-15] MEDS: Multivitamin w/ Minerals Tab GT SCH (09:39)
[2018-05-15] MEDS: Lactobacillus Rhamnosus GG 15 Billion CFU CAP.SPRINK GT SCH (09:40)
[2018-05-15] MEDS: Levetiracetam 500 mg/5mL 5mL UDSyr *for ORAL USE ONLY GT SCH ×2 (09:40→21:09)
[2018-05-15] MEDS: Ferrous Sulfate 300 MG/5 ML UDC GT SCH (09:40)
[2018-05-15] MEDS: INSULIN 70/30 100 UNITS/ML SUBQ SCH ×2 (09:41→21:09)
--- NOTE | 2018-05-15 13:05 | Internal Medicine Prog Note ---
Internal Medicine Subjective - Subjective Service Date: 05/15/18 Patient is:: asleep, non-verbal, non-interactive, eyes closed, in bed, congested Patient Complaints of:: congestion Per staff patient has:: no adverse event, no episodes of fall, tolerating meds Internal Medicine Objective - Results Result Diagrams: 05/15/18 04:20 05/15/18 04:20 Recent Labs: Laboratory Last Values WBC 7.0 Th/cmm (4.8-10.8) 05/15/18 04:20 RBC 2.71 Mil/cmm (3.80-5.20) L 05/15/18 04:20 Hgb 7.2 gm/dL (12-16) L* 05/15/18 04:20 Hct 22.7 % (41.0-60) L 05/15/18 04:20 MCV 84.0 fl (81-100) 05/15/18 04:20 MCH 26.8 pg (27.0-31.0) L 05/15/18 04:20 MCHC Differential 31.8 pg (28.0-36.0) 05/15/18 04:20 RDW 16.9 % (11.5-20.0) 05/15/18 04:20 Plt Count 281 Th/cmm (150-400) 05/15/18 04:20 MPV 7.4 fl 05/15/18 04:20 Add Manual Diff YES 05/15/18 04:20 Neutrophils % BEADING MACHINE OPERATOR 05/13/18 04:10 Band Neutrophils % 0 % (0-10) 05/15/18 04:20 Lymphocytes % BEADING MACHINE OPERATOR 05/13/18 04:10 Monocytes % BEADING MACHINE OPERATOR 05/13/18 04:10 Eosinophils % BEADING MACHINE OPERATOR 05/13/18 04:10 Basophils % BEADING MACHINE OPERATOR 05/13/18 04:10 Neutrophils (Manual) 80 % (40-80) 05/15/18 04:20 Lymphocytes 14 % (20-50) L 05/15/18 04:20 Monocytes 6 % (2-10) 05/15/18 04:20 Eosinophils 2 % (0-5) 05/12/18 07:10 Basophils 0 % (0-3) 05/12/18 07:10 Sodium 141 mEq/L (136-145) 05/15/18 04:20 Potassium 4.2 mEq/L (3.5-5.1) 05/15/18 04:20 Chloride 109 mEq/L (98-107) H 05/15/18 04:20 Carbon Dioxide 21.1 mEq/L (21.0-31.0) 05/15/18 04:20 Anion Gap 15.1 (7.0-16.0) 05/15/18 04:20 BUN 37 mg/dL (7-25) H 05/15/18 04:20 Creatinine 1.0 mg/dL (0.6-1.2) 05/15/18 04:20 Est GFR ( Amer) TNP 05/15/18 04:20 Est GFR (Non-Af Amer) TNP 05/15/18 04:20 BUN/Creatinine Ratio 37.0 05/15/18 04:20 Glucose 173 mg/dL (70-105) H 05/15/18 04:20 POC Glucose 164 MG/DL (70 - 105) H 05/15/18 12:55 Whole Bld Lactic Acid 1.45 mmol/L (0.60-1.99) 05/11/18 15:45 Calcium 8.4 mg/dL (8.6-10.3) L 05/15/18 04:20 Phosphorus 3.9 mg/dL (2.5-5.0) 05/11/18 15:45 Magnesium 2.7 mg/dL (1.9-2.7) 05/11/18 15:45 Iron 49 ug/dL (27-139) 05/12/18 07:10 TIBC 264 ug/dL (250-450) 05/12/18 07:10 Iron Saturation 19 % (15-55) 05/12/18 07:10 Unsaturated IBC 215 ug/dL (118-369) 05/12/18 07:10 Total Bilirubin 0.3 mg/dL (0.3-1.0) 05/11/18 15:45 AST 13 U/L (13-39) 05/11/18 15:45 ALT 10 U/L (7-52) 05/11/18 15:45 Alkaline Phosphatase 81 U/L (34-104) 05/11/18 15:45 Ammonia 59 umol/L (16-53) H 05/13/18 04:10 B-Natriuretic Peptide 84.7 pg/mL (5.0-100.0) 05/14/18 04:35 Total Protein 8.3 gm/dL (6.0-8.3) 05/11/18 15:45 Albumin 3.6 gm/dL (3.7-5.3) L 05/11/18 15:45 Globulin 4.7 gm/dL 05/11/18 15:45 Albumin/Globulin Ratio 0.8 (1.0-1.8) L 05/11/18 15:45 Vitamin B12 1516 pg/mL (232-1245) H 05/12/18 07:10 Folic Acid >20.0 ng/mL (>3.0) 05/12/18 07:10 TSH 1.25 uIU/ml (0.34-5.60) 05/11/18 15:45 Urine Source CATH 05/11/18 16:50 Urine Color BROWN 05/11/18 16:50 Urine Clarity CLOUDY (CLEAR) H 05/11/18 16:50 Urine pH 7.0 (4.6 - 8.0) 05/11/18 16:50 Ur Specific [place] 1.010 (1.005-1.030) 05/11/18 16:50 Urine Protein 100 mg/dL (NEGATIVE) H 05/11/18 16:50 Urine Glucose (UA) NEGATIVE mg/dL (NEGATIVE) 05/11/18 16:50 Urine Ketones NEGATIVE mg/dL (NEGATIVE) 05/11/18 16:50 Urine Blood LARGE (NEGATIVE) H 05/11/18 16:50 Urine Nitrate NEGATIVE (NEGATIVE) 05/11/18 16:50 Urine Bilirubin SMALL (NEGATIVE) H 05/11/18 16:50 Urine Urobilinogen 0.2 E.U./dL (0.2 - 1.0) 05/11/18 16:50 Ur Leukocyte Esterase LARGE (NEGATIVE) H 05/11/18 16:50 Urine RBC 25-50 /hpf (0-5) H 05/11/18 16:50 Urine WBC 50-100 /hpf (0-5) H 05/11/18 16:50 Ur Epithelial Cells MODERATE /lpf (FEW) 05/11/18 16:50 Urine Bacteria 4+ /hpf (NONE SEEN) H 05/11/18 16:50 Urine Opiates Screen POSITIVE (NEGATIVE) H 05/11/18 16:50 Urine Methadone Screen NEGATIVE (NEGATIVE) 05/11/18 16:50 Ur Barbiturates Screen NEGATIVE (NEGATIVE) 05/11/18 16:50 Ur Tricyclics Screen NEGATIVE (NEGATIVE) 05/11/18 16:50 Levetiracetam 51.3 ug/mL (10.0-40.0) H 05/11/18 15:45 Ur Phencyclidine Scrn NEGATIVE (NEGATIVE) 05/11/18 16:50 Amphetamines Screen NEGATIVE (NEGATIVE) 05/11/18 16:50 U Methamphetamines Scrn NEGATIVE (NEGATIVE) 05/11/18 16:50 U Benzodiazepines Scrn NEGATIVE (NEGATIVE) 05/11/18 16:50 U Cocaine Metab Screen NEGATIVE (NEGATIVE) 05/11/18 16:50 U Cannabinoids Screen NEGATIVE (NEGATIVE) 05/11/18 16:50 Blood Type A POSITIVE 05/11/18 16:48 Rho(D) Type Cancelled 05/11/18 16:48 Antibody Screen NEGATIVE 05/11/18 16:48 Crossmatch See Detail 05/11/18 16:48 BBK History Checked Cancelled 05/11/18 16:48 - Physical Exam Vitals and I&O: Vital Signs Temp 97.3 F 05/15/18 08:00 Pulse 64 05/15/18 11:00 Resp 16 05/15/18 11:00 BP 119/56 05/15/18 11:00 Pulse Ox 100 05/15/18 11:00 Intake & Output 05/14/18 05/15/18 05/15/18 18:59 06:59 18:59 Intake Total 1100 900 950 Output Total 1525 1050 Balance 1100 -625 -100 Weight (lbs) 180 lb 12.8 oz 179 lb 3.2 oz Intake: Intake, IV Amount 1100 200 Piperacillin Sodium/ 100 200 Tazobact 2.25 gm In Sodium Chloride 0.9% 100 ml @ 100 mls/hr IV Q8HR JUAN FRANCISCO Rx#:[id number] Sodium Chloride 0.9% 1, 1000 000 ml @ 80 mls/hr IV . [id number] JUAN FRANCISCO Rx#:[id number] Oral 0 Tube Feeding 520 650 Other 180 300 Output: Urine 775 1050 Other 750 Other: # Bowel Movements 1 1 Stool Characteristics Soft Soft Brown Brown Black Black Green Green Weight Source Bedscale Bedscale Active Medications: Current Medications Acetaminophen (Tylenol 650mg/20.3ml Suspension) 650 mg GT Q6HR PRN PRN Reason: Mild Pain or Fever >101 Stop: 07/10/18 19:13 Last Admin: 05/11/18 21:39 Dose: 650 mg Acetaminophen/Hydrocodone Bitart ([place] 5mg/325mg) 1 tab GT Q6H PRN PRN Reason: Severe Pain Stop: 07/10/18 19:13 Acetylcysteine (Mucomyst 20%) 2 ml HHN Q6HRT JUAN FRANCISCO Stop: 07/11/18 00:59 Last Admin: 05/15/18 07:06 Dose: 2 ml Albuterol Sulfate (Albuterol 2.5mg/3ml Neb Ud) 2.5 mg HHN Q2HRT PRN PRN Reason: Shortness of Breath or Wheeze Stop: 07/10/18 19:22 Albuterol/Ipratropium (Duoneb Neb) 3 ml HHN Q6HRT JUAN FRANCISCO Stop: 07/11/18 00:59 Last Admin: 05/15/18 07:06 Dose: 3 ml Albuterol/Ipratropium (Duoneb Neb) 3 ml HHN Q2HRT PRN PRN Reason: Wheezing Stop: 07/10/18 19:13 Amlodipine Besylate (Norvasc) 5 mg GT DAILY [facility]END[facility] TO [facility] Stop: 07/11/18 08:59 Last Admin: 05/15/18 09:40 Dose: 5 mg Benztropine Mesylate (Cogentin) 1 mg GT BID [facility]END[facility] TO [facility] Stop: 07/11/18 08:59 Last Admin: 05/15/18 09:39 Dose: 1 mg Carbidopa/Levodopa (Sinemet 25mg-100 Mg) 1 tab GT DAILY [facility]ENDING S[facility] TO [facility] Stop: 07/11/18 08:59 Last Admin: 05/15/18 09:39 Dose: 1 tab Chlorhexidine Gluconate (Peridex) 15 ml MM 0800,2000 PENDING S[facility] TO [facility] Stop: 07/10/18 19:59 Last Admin: 05/14/18 20:48 Dose: 15 ml Clonazepam (Klonopin) 0.5 mg GT BID [facility]END[facility] S[facility] TO [facility]; Protocol Stop: 07/11/18 08:59 Last Admin: 05/15/18 09:39 Dose: 0.5 mg Docusate Sodium (Colace) 250 mg PO BID [facility]END[facility] Stop: 07/11/18 08:59 Last Admin: 05/15/18 09:40 Dose: 250 mg Ferrous Sulfate (Iron) 330 mg GT DAILY PEND[facility] Stop: 07/11/18 08:59 Last Admin: 05/15/18 09:40 Dose: 330 mg Gemfibrozil (Lopid) 600 mg GT BID PEND[facility] S[facility] TO [facility] Stop: 07/11/18 08:59 Last Admin: 05/15/18 09:39 Dose: 600 mg Sodium Chloride (Nacl 0.9%) 1,000 mls @ 80 mls/hr IV .[id number] [facility] Stop: 07/10/18 19:29 Last Admin: 05/14/18 16:48 Dose: 80 mls/hr Piperacillin Sod/Tazobactam (Sod 2.25 gm/ Sodium Chloride) 100 mls @ 100 mls/ hr IV Q8HR [facility]END[facility] TO [facility] Stop: 07/10/18 20:59 Last Admin: 05/15/18 13:03 Dose: 100 mls/hr Amikacin Sulfate 500 mg/ (Dextrose) 102 mls @ 200 mls/hr IV Q24HR [facility] Stop: 07/13/18 14:59 Last Admin: 05/14/18 15:44 Dose: 200 mls/hr Insulin Aspart (Novolog) 0 units SUBQ Q6H [facility]END[facility] TO [facility]; Protocol Stop: 07/11/18 00:00 Last Admin: 05/15/18 13:03 Dose: 2 units Insulin Human Isoph/Insulin Regular (Novolin 70/30) 22 units SUBQ HS [facility]END[facility] TO [facility]; Protocol Stop: 07/10/18 20:59 Last Admin: 05/14/18 20:46 Dose: 22 units Insulin Human Isoph/Insulin Regular (Novolin 70/30) 45 units SUBQ DAILY [facility]END[facility]; Protocol Stop: 07/11/18 08:59 Last Admin: 05/15/18 09:41 Dose: Not Given Ipratropium [place] (Atrovent Neb 0.5mg/2.5ml) 0.5 mg HHN Q2HRT PRN PRN Reason: Shortness of Breath or Wheeze Stop: 07/10/18 19:22 Lactobacillus Rhamnosus (Culturelle 15b) 1 each GT DAILY PENDING S[facility] TO [facility] Stop: 07/11/18 08:59 Last Admin: 05/15/18 09:40 Dose: 1 each Lactulose (Cephulac) 20 gm GT PRN PRN PRN Reason: BOWEL MANAGEMENT Stop: 07/10/18 19:13 Levetiracetam (Keppra) 1,000 mg GT Q12HR JUAN FRANCISCO Stop: 07/11/18 08:59 Last Admin: 05/15/18 09:40 Dose: 1,000 mg Levothyroxine Sodium (Synthroid) 0.1 mg GT QDAC JUAN FRANCISCO Stop: 07/11/18 07:29 Last Admin: 05/15/18 09:39 Dose: 0.1 mg Lorazepam (Ativan) 1 mg IV Q4H PRN; Protocol PRN Reason: Seizure Stop: 07/10/18 19:22 Metoclopramide HCl (Reglan) 10 mg GT Q8HR JUAN FRANCISCO Stop: 07/12/18 12:59 Last Admin: 05/15/18 13:03 Dose: 10 mg Miscellaneous (Calcium Alginate [Juan]) 1 each TP DAILY JUAN FRANCISCO Stop: 07/11/18 08:59 Miscellaneous (Collagenase Clostridium Hist. [Santyl]) 1 appl TP DAILY JUAN FRANCISCO Stop: 07/11/18 08:59 Miscellaneous (Petrolatum,White/Lanolin [Vitamin A And D Ointment]) 113 gm TP DAILY JUAN FRANCISCO Stop: 07/11/18 08:59 Miscellaneous (Amikacin Iv Per Pharmacy) 1 ea PRN PRN PRN Reason: PROTOCOL Stop: 07/12/18 15:36 Ondansetron HCl (Zofran) 4 mg IV Q8H PRN PRN Reason: Nausea / Vomiting Stop: 07/10/18 19:23 Pantoprazole Sodium (Protonix) 40 mg IVP BID JUAN FRANCISCO Stop: 07/11/18 08:59 Last Admin: 05/15/18 09:40 Dose: 40 mg Simvastatin (Zocor) 20 mg PO HS JUAN FRANCISCO; Protocol Stop: 07/10/18 20:59 Last Admin: 05/14/18 20:45 Dose: 20 mg Sucralfate (Carafate) 1 gm GT QID JUAN FRANCISCO Stop: 07/10/18 20:59 Last Admin: 05/15/18 13:03 Dose: 1 gm Zinc Sulfate (Zinc Sulfate) 220 mg GT DAILY JUAN FRANCISCO Stop: 07/11/18 08:59 Last Admin: 05/15/18 09:39 Dose: 220 mg General: congested, demented, obtunded HEENT: NC/AT, PERRLA Neck: Supple, No JVD, No LAD, + trach, deformity Lungs: congested, rales, ronchi Cardiovascular: RRR, Normal S1, Normal S2, with murmur Abdomen: soft, globular, +GT, positive bowel sound Extremities: excoriation, contracture, deformity Neurological: no change, unable to follow command, bedbound - Procedures Procedures: Procedures Procedure Code Date AIRWAYS SURGICAL PROCEDURE 75654 03/03/16 BLOOD TRANSFUSION SERVICE 47972 09/27/17 CHANGE FEEDING DEVICE IN UP INTEST TRACT, RESTAURANT DELIVERY DRIVER APPROACH [id number] 12/10/16 CHANGE GASTROSTOMY TUBE 94545 06/06/13 CONTINUOUS INVASIVE MECHANICAL VENTILATION <96 CONSEC HRS 96.71 02/02/13 CONTINUOUS INVASIVE MECHANICAL VENTILATION =/>96 CONSEC HRS 96.72 06/06/13 [place] [address] 03/03/16 IMMUNIZATION ADMIN 16635 03/03/16 INFLUENZA VACCINATION 99.52 02/02/13 INSERT NON-TUNNEL CV CATH 24753 03/03/16 INSERTION OF INFUSION DEV INTO SUP VENA CAVA, PERC APPROACH 22PS50Y 03/03/16 INSJ PICC 5 YR+ W/O IMAGING 67261 02/02/13 INTRODUCTION OF SERUM/TOX/VACCINE INTO MUSCLE, PERC APPROACH [id number] 03/03/16 OTHER GASTROSTOMY 43.19 06/03/10 REPLACE GASTROSTOMY TUBE 97.02 06/06/13 RESPIRATORY VENTILATION, 24-96 CONSECUTIVE HOURS [id number] 05/11/18 RESPIRATORY VENTILATION, GREATER THAN 96 CONSECUTIVE HOURS [id number] 09/27/17 TRANSFUSE NONAUT RED BLOOD CELLS IN PERIPH VEIN, PERC [id number] 09/27/17 VACCINATION NEC 99.55 02/02/13 VENOUS CATHETERIZATION NEC 38.93 02/02/13 VENT MGMT INPAT INIT DAY 63914 03/03/16 VENT MGMT INPAT SUBQ DAY 03/03/16 Internal Medicine Assmt/Plan - Assessment Assessment: Anemia--severe , possibly secondary to a GI source versus hematuria from uti/sepsis, possible pneumonia, urinary tract infection, ventilator dependent respiratory failure, chronic hydrocephalus, dementia, decubitus ulcer, diabetes, obesity, Parkinson, leukocytosis, renal insufficiency, hyponatremia. - Plan Plan: monitor h/h closely cont vent support follow up labs in am uro is following continue current plan of care Nutritional Asmnt/Malnutr-PDOC - Dietary Evaluation Malnutrition Findings (Please click <Entered> for more info): Nutritional Asmnt/Malnutrition Start: 05/12/18 14: 39 Text: Status: Complete Freq: Protocol: Document 05/12/18 14:39 RHAQUE (Rec: 05/12/18 14:59 [id number]) Nutritional Asmnt/Malnutrition Patient General Information Nutritional Screening High Risk Consult Diagnosis UTI, GI bleed Pertinent Medical Hx/Surgical Hx Ventilator dependent Resp failure, Parkinson's, Seizure, Dementia, Chronic Hydrocephalus w STRUCTURAL FITTER shunt, DM, Decubitus Ulcer, Subjective Information Consult received for Blood Glucose 233 with Hx of DM while on TF. Pt is trached to a ventilator. Current TF provides 1300ml/day volume, 1560 kcal/day, 78g Protein/ day. 1047 ml water total. Current Diet Order/ Nutrition Support Tube feeding Glucerna 1.2 65ml /hr x 20hrs Patient / S.O Not Indicated Pertinent Medications Docusate, Gemfibrozil, Insulin Aspart, Insulin Novolin, Lactulose, Synthroid, Metoclopramide, Ondansetron, Simvastatin Pertinent Labs (05/12) BUN 65, Na+ 135, Gluc 214, POC Gluc 241 Nutritional Hx/Data Height 5 ft 4 in Height (Calculated Centimeters) 162.6 Current Weight (lbs) 172 lb Weight (Calculated Kilograms) 78.0 Weight (Calculated Grams) 11249.9 [place] Body Weight 120 % [place] Body Weight 135 Body Mass Index (BMI) 29.5 GI Symptoms Last BM No Noted B.M. Cultural/Ethnic/Hoahaoism Belief None indicated Skin Integrity/Comment: Germán Score 12. On Nursing flowsheet, pressure ulcer on coccyx noted. No wound care note. Unknown stage. Current %PO Negligible < 25% Estimated Nutritional Goals BEE in Kcals: Adj wt of IBW Calories/Kcals/Kg 25-30 Kcals Calculated 9680-9272 Protein: Adj wt of IBW Protein g/k.2-1.5 Protein Calculated 72-90 Fluid: ml 4839-8802 Nutritional Problem 1. Problem Problem Altered Nutritional related Lab values Etiology Uncontrolled hyperglycemia aeb Signs/Symptoms: (05/12) Gluc 214, POC Gluc 241 Malnutrition Alert Is there a minimum of two criteria No selected? Query Text:Check all the applicable criteria. A minimum of two criteria are recommended for diagnosis of either severe or non-severe malnutrition. Malnutrition Related to Morbid Obesity Malnutrition related to morbid obesity No Intervention/Recommendation Comments Continue Tube feeding as ordered. Pt already on DM tube feeding formula. MD to modify insulin regimen as needed for optimal glycemic control. Will modify nutrient needs based on wound care notes. Expected Outcomes/Goals Expected Outcomes/Goals 1. Labs WNL 2. Tube feeding continue to be tolerated 3. F/U in 2-3 days as HR (05/14 -)
[2018-05-15] MEDS: Amikacin 500 mg in D5W 100mL (Q24HR) IV SCH (15:22)
[2018-05-15] MEDS ORDERED: DOPamine 400 MG/250 ML BAG IV ONE (16:03)
[2018-05-15] MEDS: Sodium Chloride 0.9% 1,000 ML IV SCH ×2 (17:18→21:11)
--- NOTE | 2018-05-15 18:06 | Infectious Disease Prog Note ---
Infectious Disease Subjective - Review of Systems Service Date: 05/15/18 Events since last encounter: c pn decubiti hpi- pt on iv abx ros no fever o/e vss chaest vesiculra abd soft ext pilse trach Vital Signs - 24 hr 05/14/18 05/14/18 05/14/18 19:00 19:14 20:00 Temp 97.7 F HR 70 69 69 RR 15 16 BP 132/66 129/64 O2 Sat % 100 100 100 05/14/18 05/14/18 05/14/18 21:00 21:23 22:00 Temp HR 80 81 73 RR 16 16 BP 141/67 133/65 O2 Sat % 100 100 100 05/14/18 05/14/18 05/15/18 23:00 23:18 00:00 Temp 98.2 F HR 67 69 68 RR 16 16 BP 135/62 135/61 O2 Sat % 100 100 100 05/15/18 05/15/18 05/15/18 01:00 01:16 02:00 Temp HR 67 69 71 RR 16 16 BP 145/67 158/70 O2 Sat % 100 100 100 05/15/18 05/15/18 05/15/18 03:00 03:38 04:00 Temp 98.6 F HR 70 69 74 RR 16 16 BP 155/64 135/56 O2 Sat % 100 100 100 05/15/18 05/15/18 05/15/18 05:00 05:32 06:00 Temp HR 70 75 64 RR 16 16 BP 142/66 147/66 O2 Sat % 100 100 100 05/15/18 05/15/18 05/15/18 07:06 08:00 09:00 Temp 97.3 F HR 60 66 68 RR 16 16 BP 142/68 138/67 O2 Sat % 100 100 100 05/15/18 05/15/18 05/15/18 09:20 09:40 10:00 Temp HR 75 69 71 RR 16 BP 138/67 149/70 O2 Sat % 100 100 05/15/18 05/15/18 05/15/18 10:48 11:00 12:00 Temp 97.2 F HR 67 64 62 RR 16 16 BP 119/56 132/63 O2 Sat % 100 100 100 05/15/18 05/15/18 05/15/18 13:00 13:16 14:00 Temp HR 68 69 67 RR 16 16 BP 126/57 116/51 O2 Sat % 100 100 100 05/15/18 05/15/18 05/15/18 15:00 15:23 16:00 Temp 97.6 F HR 62 64 61 RR 16 16 BP 128/58 138/63 O2 Sat % 100 100 100 05/15/18 05/15/18 05/15/18 17:00 17:33 18:00 Temp HR 63 66 RR 16 BP 132/66 O2 Sat % 100 100 100 Laboratory Results - last 24 hr 05/11/18 05/12/18 05/14/18 15:45 07:10 20:41 WBC RBC Hgb Hct MCV MCH MCHC Differential RDW Plt Count MPV Add Manual Diff Band Neutrophils % Neutrophils (Manual) Lymphocytes Monocytes Sodium Potassium Chloride Carbon Dioxide Anion Gap BUN Creatinine Est GFR ( Amer) Est GFR (Non-Af Amer) BUN/Creatinine Ratio Glucose POC Glucose 164 H Calcium Vitamin B12 1516 H Folic Acid >20.0 Levetiracetam 51.3 H 05/15/18 05/15/18 05/15/18 00:19 04:20 04:20 WBC 7.0 RBC 2.71 L Hgb 7.2 L* Hct 22.7 L MCV 84.0 MCH 26.8 L MCHC Differential 31.8 RDW 16.9 Plt Count 281 MPV 7.4 Add Manual Diff YES Band Neutrophils % 0 Neutrophils (Manual) 80 Lymphocytes 14 L Monocytes 6 Sodium 141 Potassium 4.2 Chloride 109 H Carbon Dioxide 21.1 Anion Gap 15.1 BUN 37 H Creatinine 1.0 Est GFR ( Amer) TNP Est GFR (Non-Af Amer) TNP BUN/Creatinine Ratio 37.0 Glucose 173 H POC Glucose 158 H Calcium 8.4 L Vitamin B12 Folic Acid Levetiracetam 05/15/18 05/15/18 05/15/18 05:12 09:38 12:55 WBC RBC Hgb Hct MCV MCH MCHC Differential RDW Plt Count MPV Add Manual Diff Band Neutrophils % Neutrophils (Manual) Lymphocytes Monocytes Sodium Potassium Chloride Carbon Dioxide Anion Gap BUN Creatinine Est GFR ( Amer) Est GFR (Non-Af Amer) BUN/Creatinine Ratio Glucose POC Glucose 148 H 155 H 164 H Calcium Vitamin B12 Folic Acid Levetiracetam 05/15/18 16:26 WBC RBC Hgb Hct MCV MCH MCHC Differential RDW Plt Count MPV Add Manual Diff Band Neutrophils % Neutrophils (Manual) Lymphocytes Monocytes Sodium Potassium Chloride Carbon Dioxide Anion Gap BUN Creatinine Est GFR ( Amer) Est GFR (Non-Af Amer) BUN/Creatinine Ratio Glucose POC Glucose 169 H Calcium Vitamin B12 Folic Acid Levetiracetam Microbiology 05/12/18 00:10 Sputum Culture - Endotracheal Wash Gram Stain - Final 05/12/18 00:10 Sputum Culture - Endotracheal Wash Sputum Culture - Preliminary 05/11/18 15:31 Blood - Preliminary NO GROWTH AFTER 48 HOURS 05/11/18 15:45 Blood - Preliminary NO GROWTH AFTER 48 HOURS 05/11/18 16:50 Urine,Clean Catch Urine Culture - Final Klebsiella Pneumoniae Esbl Proteus Mirabilis 05/11/18 12:30 Nares - Final NO MRSA ISOLATED Diagnoses SEPSIS, UNSPECIFIED ORGANISM (05/11/18) ANEMIA, UNSPECIFIED (05/11/18) PNEUMONIA, UNSPECIFIED ORGANISM (05/11/18) CHRONIC RESPIRATORY FAILURE, UNSP W HYPOXIA OR HYPERCAPNIA (05/11/18) URINARY TRACT INFECTION, SITE NOT SPECIFIED (05/11/18) WEAKNESS (05/11/18) DEPENDENCE ON SUPPLEMENTAL OXYGEN (05/11/18) Current Medications Acetaminophen (Tylenol 650mg/20.3ml Suspension) 650 mg GT Q6HR PRN PRN Reason: Mild Pain or Fever >101 Stop: 07/10/18 19:13 Last Admin: 05/11/18 21:39 Dose: 650 mg Acetaminophen/Hydrocodone Bitart ([place] 5mg/325mg) 1 tab GT Q6H PRN PRN Reason: Severe Pain Stop: 07/10/18 19:13 Acetylcysteine (Mucomyst 20%) 2 ml HHN Q6HRT [facility] Stop: 07/11/18 00:59 Last Admin: 05/15/18 13:16 Dose: 2 ml Albuterol Sulfate (Albuterol 2.5mg/3ml Neb Ud) 2.5 mg HHN Q2HRT PRN PRN Reason: Shortness of Breath or Wheeze Stop: 07/10/18 19:22 Albuterol/Ipratropium (Duoneb Neb) 3 ml HHN Q6HRT [facility] Stop: 07/11/18 00:59 Last Admin: 05/15/18 13:15 Dose: 3 ml Albuterol/Ipratropium (Duoneb Neb) 3 ml HHN Q2HRT PRN PRN Reason: Wheezing Stop: 07/10/18 19:13 Amlodipine Besylate (Norvasc) 5 mg GT DAILY [facility] Stop: 07/11/18 08:59 Last Admin: 05/15/18 09:40 Dose: 5 mg Benztropine Mesylate (Cogentin) 1 mg GT BID [facility] Stop: 07/11/18 08:59 Last Admin: 05/15/18 17:16 Dose: 1 mg Carbidopa/Levodopa (Sinemet 25mg-100 Mg) 1 tab GT DAILY [facility] Stop: 07/11/18 08:59 Last Admin: 05/15/18 09:39 Dose: 1 tab Chlorhexidine Gluconate (Peridex) 15 ml MM 0800,1999 [facility] Stop: 07/10/18 19:59 Last Admin: 05/15/18 09:00 Dose: 15 ml Clonazepam (Klonopin) 0.5 mg GT BID [facility]; Protocol Stop: 07/11/18 08:59 Last Admin: 05/15/18 17:15 Dose: 0.5 mg Docusate Sodium (Colace) 250 mg PO BID [facility] Stop: 07/11/18 08:59 Last Admin: 05/15/18 17:15 Dose: 250 mg Ferrous Sulfate (Iron) 330 mg GT DAILY [facility] Stop: 07/11/18 08:59 Last Admin: 05/15/18 09:40 Dose: 330 mg Gemfibrozil (Lopid) 600 mg GT BID [facility] Stop: 07/11/18 08:59 Last Admin: 05/15/18 17:16 Dose: 600 mg Sodium Chloride (Nacl 0.9%) 1,000 mls @ 80 mls/hr IV .[id number] [facility] Stop: 07/10/18 19:29 Last Admin: 05/15/18 17:18 Dose: 80 mls/hr Piperacillin Sod/Tazobactam (Sod 2.25 gm/ Sodium Chloride) 100 mls @ 100 mls/ hr IV Q8HR [facility] Stop: 07/10/18 20:59 Last Infusion: 05/15/18 14:05 Dose: Infused Amikacin Sulfate 500 mg/ (Dextrose) 102 mls @ 200 mls/hr IV Q24HR [facility] Stop: 07/13/18 14:59 Last Admin: 05/15/18 15:22 Dose: 200 mls/hr Insulin Aspart (Novolog) 0 units SUBQ Q6H [facility]; Protocol Stop: 07/11/18 00:00 Last Admin: 05/15/18 17:16 Dose: 2 units Insulin Human Isoph/Insulin Regular (Novolin 70/30) 22 units SUBQ HS [facility]; Protocol Stop: 07/10/18 20:59 Last Admin: 05/14/18 20:46 Dose: 22 units Insulin Human Isoph/Insulin Regular (Novolin 70/30) 45 units SUBQ DAILY [facility]; Protocol Stop: 07/11/18 08:59 Last Admin: 05/15/18 09:41 Dose: Not Given Ipratropium [place] (Atrovent Neb 0.5mg/2.5ml) 0.5 mg HHN Q2HRT PRN PRN Reason: Shortness of Breath or Wheeze Stop: 07/10/18 19:22 Lactobacillus Rhamnosus (Culturelle 15b) 1 each GT DAILY [facility] Stop: 07/11/18 08:59 Last Admin: 05/15/18 09:40 Dose: 1 each Lactulose (Cephulac) 20 gm GT PRN PRN PRN Reason: BOWEL MANAGEMENT Stop: 07/10/18 19:13 Levetiracetam (Keppra) 1,000 mg GT Q12HR [facility] Stop: 07/11/18 08:59 Last Admin: 05/15/18 09:40 Dose: 1,000 mg Levothyroxine Sodium (Synthroid) 0.1 mg GT QDAC [facility] Stop: 07/11/18 07:29 Last Admin: 05/15/18 09:39 Dose: 0.1 mg Lorazepam (Ativan) 1 mg IV Q4H PRN; Protocol PRN Reason: Seizure Stop: 07/10/18 19:22 Metoclopramide HCl (Reglan) 10 mg GT Q8HR [facility] Stop: 07/12/18 12:59 Last Admin: 05/15/18 13:03 Dose: 10 mg Miscellaneous (Calcium Alginate [Juan]) 1 each TP DAILY [facility] Stop: 07/11/18 08:59 Miscellaneous (Collagenase Clostridium Hist. [Santyl]) 1 appl TP DAILY [facility] Stop: 07/11/18 08:59 Miscellaneous (Petrolatum,White/Lanolin [Vitamin A And D Ointment]) 113 gm TP DAILY [facility] Stop: 07/11/18 08:59 Miscellaneous (Amikacin Iv Per Pharmacy) 1 ea MC PRN PRN PRN Reason: PROTOCOL Stop: 07/12/18 15:36 Ondansetron HCl (Zofran) 4 mg IV Q8H PRN PRN Reason: Nausea / Vomiting Stop: 07/10/18 19:23 Pantoprazole Sodium (Protonix) 40 mg IVP BID [facility] Stop: 07/11/18 08:59 Last Admin: 05/15/18 17:15 Dose: 40 mg Simvastatin (Zocor) 20 mg PO HS [facility]; Protocol Stop: 07/10/18 20:59 Last Admin: 05/14/18 20:45 Dose: 20 mg Sucralfate (Carafate) 1 gm GT QID [facility] Stop: 07/10/18 20:59 Last Admin: 05/15/18 17:16 Dose: 1 gm Zinc Sulfate (Zinc Sulfate) 220 mg GT DAILY [facility] Stop: 07/11/18 08:59 Last Admin: 05/15/18 09:39 Dose: 220 mg Subjective: cc pn uti hpi- cx noted i n icu on vent vs chest claer abd soft trach dx Vital Signs - 24 hr 05/13/18 05/13/18 05/13/18 18:00 18:53 19:00 Temp HR 79 74 69 RR 15 16 BP 138/58 143/53 O2 Sat % 100 100 100 05/13/18 05/13/18 05/13/18 20:00 20:29 21:00 Temp 98.1 F HR 83 83 74 RR 16 16 BP 151/75 140/67 O2 Sat % 100 100 100 05/13/18 05/13/18 05/13/18 22:00 22:57 23:00 Temp HR 71 73 71 RR 16 16 BP 135/67 135/67 O2 Sat % 100 100 100 05/14/18 05/14/18 05/14/18 00:00 00:57 01:00 Temp 98.6 F HR 73 78 74 RR 16 16 BP 139/71 149/73 O2 Sat % 100 100 100 05/14/18 05/14/18 05/14/18 02:00 02:48 03:00 Temp HR 73 74 70 RR 16 16 BP 148/68 133/58 O2 Sat % 100 100 100 05/14/18 05/14/18 05/14/18 03:32 04:00 04:33 Temp 98.3 F HR 66 77 RR 16 16 BP 136/56 O2 Sat % 100 100 05/14/18 05/14/18 05/14/18 05:00 06:00 07:00 Temp 99.0 F HR 79 76 79 RR 15 16 16 BP 133/60 130/63 143/67 O2 Sat % 100 100 100 05/14/18 05/14/18 05/14/18 07:46 08:00 08:40 Temp 98.7 F HR 77 69 70 RR 16 BP 124/60 O2 Sat % 100 100 100 05/14/18 05/14/18 05/14/18 09:00 09:31 10:00 Temp 98.6 F 99.1 F HR 70 71 78 RR 16 16 BP 122/54 122/54 135/67 O2 Sat % 100 100 05/14/18 05/14/18 05/14/18 11:00 11:07 12:00 Temp 98.7 F 98.6 F HR 71 76 69 RR 16 14 BP 120/55 117/52 O2 Sat % 100 100 100 05/14/18 05/14/18 05/14/18 12:59 13:00 14:00 Temp 98.5 F 98.6 F HR 66 65 81 RR 16 16 BP 131/64 131/64 O2 Sat % 100 100 100 05/14/18 05/14/18 05/14/18 15:14 16:00 17:32 Temp HR 79 92 RR BP O2 Sat % 100 100 100 Laboratory Results - last 24 hr 05/12/18 05/13/18 05/13/18 20:56 17:59 21:56 WBC RBC Hgb Hct MCV MCH MCHC Differential RDW Plt Count MPV Add Manual Diff Band Neutrophils % Neutrophils (Manual) Lymphocytes Monocytes Sodium Potassium Chloride Carbon Dioxide Anion Gap BUN Creatinine Est GFR ( Amer) Est GFR (Non-Af Amer) BUN/Creatinine Ratio Glucose POC Glucose 207 H 176 H 148 H Calcium B-Natriuretic Peptide 05/13/18 05/14/18 05/14/18 21:58 00:35 04:35 WBC 8.1 RBC 2.68 L Hgb 7.1 L* Hct 21.9 L MCV 81.9 MCH 26.4 L MCHC Differential 32.2 RDW 16.9 Plt Count 286 MPV 7.4 Add Manual Diff YES Band Neutrophils % 2 Neutrophils (Manual) 80 Lymphocytes 12 L Monocytes 6 Sodium Potassium Chloride Carbon Dioxide Anion Gap BUN Creatinine Est GFR ( Amer) Est GFR (Non-Af Amer) BUN/Creatinine Ratio Glucose POC Glucose 149 H 161 H Calcium B-Natriuretic Peptide 05/14/18 05/14/18 05/14/18 04:35 04:35 05:30 WBC RBC Hgb Hct MCV MCH MCHC Differential RDW Plt Count MPV Add Manual Diff Band Neutrophils % Neutrophils (Manual) Lymphocytes Monocytes Sodium 139 Potassium 4.2 Chloride 106 Carbon Dioxide 22.1 Anion Gap 15.1 BUN 50 H Creatinine 1.3 H Est GFR ( Amer) TNP Est GFR (Non-Af Amer) TNP BUN/Creatinine Ratio 38.5 Glucose 165 H POC Glucose 143 H Calcium 8.4 L B-Natriuretic Peptide 84.7 05/14/18 05/14/18 09:27 13:29 WBC RBC Hgb Hct MCV MCH MCHC Differential RDW Plt Count MPV Add Manual Diff Band Neutrophils % Neutrophils (Manual) Lymphocytes Monocytes Sodium Potassium Chloride Carbon Dioxide Anion Gap BUN Creatinine Est GFR ( Amer) Est GFR (Non-Af Amer) BUN/Creatinine Ratio Glucose POC Glucose 176 H 161 H Calcium B-Natriuretic Peptide Diagnoses SEPSIS, UNSPECIFIED ORGANISM (05/11/18) ANEMIA, UNSPECIFIED (05/11/18) PNEUMONIA, UNSPECIFIED ORGANISM (05/11/18) CHRONIC RESPIRATORY FAILURE, UNSP W HYPOXIA OR HYPERCAPNIA (05/11/18) URINARY TRACT INFECTION, SITE NOT SPECIFIED (05/11/18) WEAKNESS (05/11/18) DEPENDENCE ON SUPPLEMENTAL OXYGEN (05/11/18) Current Medications Acetaminophen (Tylenol 650mg/20.3ml Suspension) 650 mg GT Q6HR PRN PRN Reason: Mild Pain or Fever >101 Stop: 07/10/18 19:13 Last Admin: 05/11/18 21:39 Dose: 650 mg Acetaminophen/Hydrocodone Bitart ([place] 5mg/325mg) 1 tab GT Q6H PRN PRN Reason: Severe Pain Stop: 07/10/18 19:13 Acetylcysteine (Mucomyst 20%) 2 ml HHN Q6HRT [facility] Stop: 07/11/18 00:59 Last Admin: 05/14/18 12:59 Dose: 2 ml Albuterol Sulfate (Albuterol 2.5mg/3ml Neb Ud) 2.5 mg HHN Q2HRT PRN PRN Reason: Shortness of Breath or Wheeze Stop: 07/10/18 19:22 Albuterol/Ipratropium (Duoneb Neb) 3 ml HHN Q6HRT [facility] Stop: 07/11/18 00:59 Last Admin: 05/14/18 12:59 Dose: 3 ml Albuterol/Ipratropium (Duoneb Neb) 3 ml HHN Q2HRT PRN PRN Reason: Wheezing Stop: 07/10/18 19:13 Amlodipine Besylate (Norvasc) 5 mg GT DAILY [facility] Stop: 07/11/18 08:59 Last Admin: 05/14/18 09:31 Dose: 5 mg Benztropine Mesylate (Cogentin) 1 mg GT BID [facility] Stop: 07/11/18 08:59 Last Admin: 05/14/18 16:38 Dose: 1 mg Carbidopa/Levodopa (Sinemet 25mg-100 Mg) 1 tab GT DAILY [facility] Stop: 07/11/18 08:59 Last Admin: 05/14/18 09:30 Dose: 1 tab Chlorhexidine Gluconate (Peridex) 15 ml MM 0800,2000 [facility] Stop: 07/10/18 19:59 Last Admin: 05/14/18 09:32 Dose: 15 ml Clonazepam (Klonopin) 0.5 mg GT BID [facility]; Protocol Stop: 07/11/18 08:59 Last Admin: 05/14/18 16:38 Dose: 0.5 mg Docusate Sodium (Colace) 250 mg PO BID [facility] Stop: 07/11/18 08:59 Last Admin: 05/14/18 16:38 Dose: 250 mg Ferrous Sulfate (Iron) 330 mg GT DAILY [facility] Stop: 07/11/18 08:59 Last Admin: 05/14/18 09:30 Dose: 330 mg Gemfibrozil (Lopid) 600 mg GT BID [facility] Stop: 07/11/18 08:59 Last Admin: 05/14/18 16:38 Dose: 600 mg Sodium Chloride (Nacl 0.9%) 1,000 mls @ 80 mls/hr IV .[id number] [facility] Stop: 07/10/18 19:29 Last Admin: 05/14/18 16:48 Dose: 80 mls/hr Piperacillin Sod/Tazobactam (Sod 2.25 gm/ Sodium Chloride) 100 mls @ 100 mls/ hr IV Q8HR [facility] Stop: 07/10/18 20:59 Last Admin: 05/14/18 13:44 Dose: 100 mls/hr Amikacin Sulfate 500 mg/ (Dextrose) 102 mls @ 200 mls/hr IV Q24HR [facility] Stop: 07/13/18 14:59 Last Admin: 05/14/18 15:44 Dose: 200 mls/hr Insulin Aspart (Novolog) 0 units SUBQ Q6H [facility]; Protocol Stop: 07/11/18 00:00 Last Admin: 05/14/18 13:44 Dose: 2 units Insulin Human Isoph/Insulin Regular (Novolin 70/30) 22 units SUBQ HS [facility]; Protocol Stop: 07/10/18 20:59 Last Admin: 05/13/18 21:45 Dose: 22 units Insulin Human Isoph/Insulin Regular (Novolin 70/30) 45 units SUBQ DAILY [facility]; Protocol Stop: 07/11/18 08:59 Last Admin: 05/14/18 09:34 Dose: 45 units Ipratropium [place] (Atrovent Neb 0.5mg/2.5ml) 0.5 mg HHN Q2HRT PRN PRN Reason: Shortness of Breath or Wheeze Stop: 07/10/18 19:22 Lactobacillus Rhamnosus (Culturelle 15b) 1 each GT DAILY [facility] Stop: 07/11/18 08:59 Last Admin: 05/14/18 09:30 Dose: 1 each Lactulose (Cephulac) 20 gm GT PRN PRN PRN Reason: BOWEL MANAGEMENT Stop: 07/10/18 19:13 Levetiracetam (Keppra) 1,000 mg GT Q12HR [facility] Stop: 07/11/18 08:59 Last Admin: 05/14/18 09:31 Dose: 1,000 mg Levothyroxine Sodium (Synthroid) 0.1 mg GT QDAC [facility] Stop: 07/11/18 07:29 Last Admin: 05/14/18 09:30 Dose: 0.1 mg Lorazepam (Ativan) 1 mg IV Q4H PRN; Protocol PRN Reason: Seizure Stop: 07/10/18 19:22 Metoclopramide HCl (Reglan) 10 mg GT Q8HR [facility] Stop: 07/12/18 12:59 Last Admin: 05/14/18 13:44 Dose: 10 mg Miscellaneous (Calcium Alginate [Juan]) 1 each TP DAILY [facility] Stop: 07/11/18 08:59 Miscellaneous (Collagenase Clostridium Hist. [Santyl]) 1 appl TP DAILY [facility] Stop: 07/11/18 08:59 Miscellaneous (Petrolatum,White/Lanolin [Vitamin A And D Ointment]) 113 gm TP DAILY [facility] Stop: 07/11/18 08:59 Miscellaneous (Amikacin Iv Per Pharmacy) 1 ea MC PRN PRN PRN Reason: PROTOCOL Stop: 07/12/18 15:36 Ondansetron HCl (Zofran) 4 mg IV Q8H PRN PRN Reason: Nausea / Vomiting Stop: 07/10/18 19:23 Pantoprazole Sodium (Protonix) 40 mg IVP BID [facility] Stop: 07/11/18 08:59 Last Admin: 05/14/18 16:39 Dose: 40 mg Simvastatin (Zocor) 20 mg PO HS [facility]; Protocol Stop: 07/10/18 20:59 Last Admin: 05/13/18 21:10 Dose: 20 mg Sucralfate (Carafate) 1 gm GT QID [facility] Stop: 07/10/18 20:59 Last Admin: 05/14/18 16:38 Dose: 1 gm Zinc Sulfate (Zinc Sulfate) 220 mg GT DAILY [facility] Stop: 07/11/18 08:59 Last Admin: 05/14/18 09:31 Dose: 220 mg 05/14/18 16:21 Wound Care Notes by Eric Connors Wound Evaluation: Wound Consult ordered for low Germán score. Patient evaluated for a low Germán score of 12. Patient was asleep, non- responsive to voice, responsive to tactile stimuli, and received in a [facility] bed with an IsoFlex CRUZ mattress. Patient is unable to turn in bed independently. Skin is fair; Scar tissue present on Sacral-Coccygeal area. Recommend: Reposition patient [id number] only every two hours with pillow support. Elevate, off-load, and float bilateral heels with one pillow lengthwise under each extremity at all times. Offload pressure areas with pillows for pressure re-distribution. Perform skin care and monitor skin integrity q shift. Use moisture barrier cream on moisture susceptible areas qid and as needed for soiling. Initiate low air loss therapy. Will continue to follow as a Germán. Initialized on 05/14/18 16:21 - END OF NOTE Infectious Disease Objective - Results Result Diagrams: 05/15/18 04:20 05/15/18 04:20 Recent Labs: Laboratory Last Values WBC 7.0 Th/cmm (4.8-10.8) 05/15/18 04:20 RBC 2.71 Mil/cmm (3.80-5.20) L 05/15/18 04:20 Hgb 7.2 gm/dL (12-16) L* 05/15/18 04:20 Hct 22.7 % (41.0-60) L 05/15/18 04:20 MCV 84.0 fl (81-100) 05/15/18 04:20 MCH 26.8 pg (27.0-31.0) L 05/15/18 04:20 MCHC Differential 31.8 pg (28.0-36.0) 05/15/18 04:20 RDW 16.9 % (11.5-20.0) 05/15/18 04:20 Plt Count 281 Th/cmm (150-400) 05/15/18 04:20 MPV 7.4 fl 05/15/18 04:20 Add Manual Diff YES 05/15/18 04:20 Neutrophils % LOT TECHNICIAN 05/13/18 04:10 Band Neutrophils % 0 % (0-10) 05/15/18 04:20 Lymphocytes % LOT TECHNICIAN 05/13/18 04:10 Monocytes % LOT TECHNICIAN 05/13/18 04:10 Eosinophils % LOT TECHNICIAN 05/13/18 04:10 Basophils % LOT TECHNICIAN 05/13/18 04:10 Neutrophils (Manual) 80 % (40-80) 05/15/18 04:20 Lymphocytes 14 % (20-50) L 05/15/18 04:20 Monocytes 6 % (2-10) 05/15/18 04:20 Eosinophils 2 % (0-5) 05/12/18 07:10 Basophils 0 % (0-3) 05/12/18 07:10 Sodium 141 mEq/L (136-145) 05/15/18 04:20 Potassium 4.2 mEq/L (3.5-5.1) 05/15/18 04:20 Chloride 109 mEq/L (98-107) H 05/15/18 04:20 Carbon Dioxide 21.1 mEq/L (21.0-31.0) 05/15/18 04:20 Anion Gap 15.1 (7.0-16.0) 05/15/18 04:20 BUN 37 mg/dL (7-25) H 05/15/18 04:20 Creatinine 1.0 mg/dL (0.6-1.2) 05/15/18 04:20 Est GFR ( Amer) TNP 05/15/18 04:20 Est GFR (Non-Af Amer) TNP 05/15/18 04:20 BUN/Creatinine Ratio 37.0 05/15/18 04:20 Glucose 173 mg/dL (70-105) H 05/15/18 04:20 POC Glucose 169 MG/DL (70 - 105) H 05/15/18 16:26 Whole Bld Lactic Acid 1.45 mmol/L (0.60-1.99) 05/11/18 15:45 Calcium 8.4 mg/dL (8.6-10.3) L 05/15/18 04:20 Phosphorus 3.9 mg/dL (2.5-5.0) 05/11/18 15:45 Magnesium 2.7 mg/dL (1.9-2.7) 05/11/18 15:45 Iron 49 ug/dL (27-139) 05/12/18 07:10 TIBC 264 ug/dL (250-450) 05/12/18 07:10 Iron Saturation 19 % (15-55) 05/12/18 07:10 Unsaturated IBC 215 ug/dL (118-369) 05/12/18 07:10 Total Bilirubin 0.3 mg/dL (0.3-1.0) 05/11/18 15:45 AST 13 U/L (13-39) 05/11/18 15:45 ALT 10 U/L (7-52) 05/11/18 15:45 Alkaline Phosphatase 81 U/L (34-104) 05/11/18 15:45 Ammonia 59 umol/L (16-53) H 05/13/18 04:10 B-Natriuretic Peptide 84.7 pg/mL (5.0-100.0) 05/14/18 04:35 Total Protein 8.3 gm/dL (6.0-8.3) 05/11/18 15:45 Albumin 3.6 gm/dL (3.7-5.3) L 05/11/18 15:45 Globulin 4.7 gm/dL 05/11/18 15:45 Albumin/Globulin Ratio 0.8 (1.0-1.8) L 05/11/18 15:45 Vitamin B12 1516 pg/mL (232-1245) H 05/12/18 07:10 Folic Acid >20.0 ng/mL (>3.0) 05/12/18 07:10 TSH 1.25 uIU/ml (0.34-5.60) 05/11/18 15:45 Urine Source CATH 05/11/18 16:50 Urine Color BROWN 05/11/18 16:50 Urine Clarity CLOUDY (CLEAR) H 05/11/18 16:50 Urine pH 7.0 (4.6 - 8.0) 05/11/18 16:50 Ur Specific [place] 1.010 (1.005-1.030) 05/11/18 16:50 Urine Protein 100 mg/dL (NEGATIVE) H 05/11/18 16:50 Urine Glucose (UA) NEGATIVE mg/dL (NEGATIVE) 05/11/18 16:50 Urine Ketones NEGATIVE mg/dL (NEGATIVE) 05/11/18 16:50 Urine Blood LARGE (NEGATIVE) H 05/11/18 16:50 Urine Nitrate NEGATIVE (NEGATIVE) 05/11/18 16:50 Urine Bilirubin SMALL (NEGATIVE) H 05/11/18 16:50 Urine Urobilinogen 0.2 E.U./dL (0.2 - 1.0) 05/11/18 16:50 Ur Leukocyte Esterase LARGE (NEGATIVE) H 05/11/18 16:50 Urine RBC 25-50 /hpf (0-5) H 05/11/18 16:50 Urine WBC 50-100 /hpf (0-5) H 05/11/18 16:50 Ur Epithelial Cells MODERATE /lpf (FEW) 05/11/18 16:50 Urine Bacteria 4+ /hpf (NONE SEEN) H 05/11/18 16:50 Urine Opiates Screen POSITIVE (NEGATIVE) H 05/11/18 16:50 Urine Methadone Screen NEGATIVE (NEGATIVE) 05/11/18 16:50 Ur Barbiturates Screen NEGATIVE (NEGATIVE) 05/11/18 16:50 Ur Tricyclics Screen NEGATIVE (NEGATIVE) 05/11/18 16:50 Levetiracetam 51.3 ug/mL (10.0-40.0) H 05/11/18 15:45 Ur Phencyclidine Scrn NEGATIVE (NEGATIVE) 05/11/18 16:50 Amphetamines Screen NEGATIVE (NEGATIVE) 05/11/18 16:50 U Methamphetamines Scrn NEGATIVE (NEGATIVE) 05/11/18 16:50 U Benzodiazepines Scrn NEGATIVE (NEGATIVE) 05/11/18 16:50 U Cocaine Metab Screen NEGATIVE (NEGATIVE) 05/11/18 16:50 U Cannabinoids Screen NEGATIVE (NEGATIVE) 05/11/18 16:50 Blood Type A POSITIVE 05/11/18 16:48 Rho(D) Type Cancelled 05/11/18 16:48 Antibody Screen NEGATIVE 05/11/18 16:48 Crossmatch See Detail 05/11/18 16:48 BBK History Checked Cancelled 05/11/18 16:48 - Physical Exam Vitals and I&O: Vital Signs Temp 97.2 F 05/15/18 12:00 Pulse 66 05/15/18 17:33 Resp 16 05/15/18 15:00 BP 128/58 05/15/18 15:00 Pulse Ox 100 05/15/18 17:33 Intake & Output 05/14/18 05/15/18 05/15/18 18:59 06:59 18:59 Intake Total 1202 1900 1050 Output Total 1525 1050 Balance 1202 375 0 Weight (lbs) 82.01 kg 81.284 kg Intake: Intake, IV Amount 1202 1200 100 Amikacin 500 mg In 102 Dextrose 5% 100 ml @ 200 mls/hr IV Q24HR [facility] Rx#: [id number] Piperacillin Sodium/ 100 200 100 Tazobact 2.25 gm In Sodium Chloride 0.9% 100 ml @ 100 mls/hr IV Q8HR [facility] Rx#:[id number] Sodium Chloride 0.9% 1, 1000 1000 000 ml @ 80 mls/hr IV . [id number] [facility] Rx#:[id number] Oral 0 Tube Feeding 520 650 Other 180 300 Output: Urine 775 1050 Other 750 Other: # Bowel Movements 1 1 Stool Characteristics Soft Soft Brown Brown Black Black Green Green Weight Source Bedscale Bedscale Active Medications: Current Medications Acetaminophen (Tylenol 650mg/20.3ml Suspension) 650 mg GT Q6HR PRN PRN Reason: Mild Pain or Fever >101 Stop: 07/10/18 19:13 Last Admin: 05/11/18 21:39 Dose: 650 mg Acetaminophen/Hydrocodone Bitart ([place] 5mg/325mg) 1 tab GT Q6H PRN PRN Reason: Severe Pain Stop: 07/10/18 19:13 Acetylcysteine (Mucomyst 20%) 2 ml HHN Q6HRT [facility] Stop: 07/11/18 00:59 Last Admin: 05/15/18 13:16 Dose: 2 ml Albuterol Sulfate (Albuterol 2.5mg/3ml Neb Ud) 2.5 mg HHN Q2HRT PRN PRN Reason: Shortness of Breath or Wheeze Stop: 07/10/18 19:22 Albuterol/Ipratropium (Duoneb Neb) 3 ml HHN Q6HRT [facility] Stop: 07/11/18 00:59 Last Admin: 05/15/18 13:15 Dose: 3 ml Albuterol/Ipratropium (Duoneb Neb) 3 ml HHN Q2HRT PRN PRN Reason: Wheezing Stop: 07/10/18 19:13 Amlodipine Besylate (Norvasc) 5 mg GT DAILY [facility] Stop: 07/11/18 08:59 Last Admin: 05/15/18 09:40 Dose: 5 mg Benztropine Mesylate (Cogentin) 1 mg GT BID [facility] Stop: 07/11/18 08:59 Last Admin: 05/15/18 17:16 Dose: 1 mg Carbidopa/Levodopa (Sinemet 25mg-100 Mg) 1 tab GT DAILY [facility] [facility] Stop: 07/11/18 08:59 Last Admin: 05/15/18 09:39 Dose: 1 tab Chlorhexidine Gluconate (Peridex) 15 ml MM 0800,1999 [facility] Stop: 07/10/18 19:59 Last Admin: 05/15/18 09:00 Dose: 15 ml Clonazepam (Klonopin) 0.5 mg GT BID [facility]; Protocol Stop: 07/11/18 08:59 Last Admin: 05/15/18 17:15 Dose: 0.5 mg Docusate Sodium (Colace) 250 mg PO BID [facility] Stop: 07/11/18 08:59 Last Admin: 05/15/18 17:15 Dose: 250 mg Ferrous Sulfate (Iron) 330 mg GT DAILY [facility] Stop: 07/11/18 08:59 Last Admin: 05/15/18 09:40 Dose: 330 mg Gemfibrozil (Lopid) 600 mg GT BID [facility] Stop: 07/11/18 08:59 Last Admin: 05/15/18 17:16 Dose: 600 mg Sodium Chloride (Nacl 0.9%) 1,000 mls @ 80 mls/hr IV .[id number] [facility] Stop: 07/10/18 19:29 Last Admin: 05/15/18 17:18 Dose: 80 mls/hr Piperacillin Sod/Tazobactam (Sod 2.25 gm/ Sodium Chloride) 100 mls @ 100 mls/ hr IV Q8HR [facility] Stop: 07/10/18 20:59 Last Infusion: 05/15/18 14:05 Dose: Infused Amikacin Sulfate 500 mg/ (Dextrose) 102 mls @ 200 mls/hr IV Q24HR [facility] Stop: 07/13/18 14:59 Last Admin: 05/15/18 15:22 Dose: 200 mls/hr Insulin Aspart (Novolog) 0 units SUBQ Q6H [facility]; Protocol Stop: 07/11/18 00:00 Last Admin: 05/15/18 17:16 Dose: 2 units Insulin Human Isoph/Insulin Regular (Novolin 70/30) 22 units SUBQ HS [facility]; Protocol Stop: 07/10/18 20:59 Last Admin: 05/14/18 20:46 Dose: 22 units Insulin Human Isoph/Insulin Regular (Novolin 70/30) 45 units SUBQ DAILY [facility]; Protocol Stop: 07/11/18 08:59 Last Admin: 05/15/18 09:41 Dose: Not Given Ipratropium [place] (Atrovent Neb 0.5mg/2.5ml) 0.5 mg HHN Q2HRT PRN PRN Reason: Shortness of Breath or Wheeze Stop: 07/10/18 19:22 Lactobacillus Rhamnosus (Culturelle 15b) 1 each GT DAILY [facility] Stop: 07/11/18 08:59 Last Admin: 05/15/18 09:40 Dose: 1 each Lactulose (Cephulac) 20 gm GT PRN PRN PRN Reason: BOWEL MANAGEMENT Stop: 07/10/18 19:13 Levetiracetam (Keppra) 1,000 mg GT Q12HR [facility] Stop: 07/11/18 08:59 Last Admin: 05/15/18 09:40 Dose: 1,000 mg Levothyroxine Sodium (Synthroid) 0.1 mg GT QDAC [facility] Stop: 07/11/18 07:29 Last Admin: 05/15/18 09:39 Dose: 0.1 mg Lorazepam (Ativan) 1 mg IV Q4H PRN; Protocol PRN Reason: Seizure Stop: 07/10/18 19:22 Metoclopramide HCl (Reglan) 10 mg GT Q8HR [facility] Stop: 07/12/18 12:59 Last Admin: 05/15/18 13:03 Dose: 10 mg Miscellaneous (Calcium Alginate [Juan]) 1 each TP DAILY [facility] Stop: 07/11/18 08:59 Miscellaneous (Collagenase Clostridium Hist. [Santyl]) 1 appl TP DAILY [facility] Stop: 07/11/18 08:59 Miscellaneous (Petrolatum,White/Lanolin [Vitamin A And D Ointment]) 113 gm TP DAILY [facility] Stop: 07/11/18 08:59 Miscellaneous (Amikacin Iv Per Pharmacy) 1 ea [facility] PRN PRN PRN Reason: PROTOCOL Stop: 07/12/18 15:36 Ondansetron HCl (Zofran) 4 mg IV Q8H PRN PRN Reason: Nausea / Vomiting Stop: 07/10/18 19:23 Pantoprazole Sodium (Protonix) 40 mg IVP BID [facility] Stop: 07/11/18 08:59 Last Admin: 05/15/18 17:15 Dose: 40 mg Simvastatin (Zocor) 20 mg PO HS [facility]; Protocol Stop: 07/10/18 20:59 Last Admin: 05/14/18 20:45 Dose: 20 mg Sucralfate (Carafate) 1 gm GT QID [facility] Stop: 07/10/18 20:59 Last Admin: 05/15/18 17:16 Dose: 1 gm Zinc Sulfate (Zinc Sulfate) 220 mg GT DAILY [facility] Stop: 07/11/18 08:59 Last Admin: 05/15/18 09:39 Dose: 220 mg - Procedures Procedures: Procedures Procedure Code Date AIRWAYS SURGICAL PROCEDURE 39585 03/03/16 BLOOD TRANSFUSION SERVICE 28615 09/27/17 CHANGE FEEDING DEVICE IN UP INTEST TRACT, COMMERCIAL MAKEUP ARTIST APPROACH [id number] 12/10/16 CHANGE GASTROSTOMY TUBE 96381 06/06/13 CONTINUOUS INVASIVE MECHANICAL VENTILATION <96 CONSEC HRS 96.71 02/02/13 CONTINUOUS INVASIVE MECHANICAL VENTILATION =/>96 CONSEC HRS 96.72 06/06/13 [place] [address] 03/03/16 IMMUNIZATION ADMIN 86439 03/03/16 INFLUENZA VACCINATION 99.52 02/02/13 INSERT NON-TUNNEL CV CATH 68153 03/03/16 INSERTION OF INFUSION DEV INTO SUP VENA CAVA, PERC APPROACH [id number] 03/03/16 INSJ PICC 5 YR+ W/O IMAGING 78013 02/02/13 INTRODUCTION OF SERUM/TOX/VACCINE INTO MUSCLE, PERC APPROACH [id number] 03/03/16 OTHER GASTROSTOMY 43.19 06/03/10 REPLACE GASTROSTOMY TUBE 97.02 06/06/13 RESPIRATORY VENTILATION, 24-96 CONSECUTIVE HOURS [id number] 05/11/18 RESPIRATORY VENTILATION, GREATER THAN 96 CONSECUTIVE HOURS [id number] 09/27/17 TRANSFUSE NONAUT RED BLOOD CELLS IN PERIPH VEIN, PERC 64108Z1 09/27/17 VACCINATION NEC 99.55 02/02/13 VENOUS CATHETERIZATION NEC 38.93 02/02/13 VENT MGMT INPAT INIT DAY 10780 03/03/16 VENT MGMT INPAT SUBQ DAY 03/03/16 Nutritional Asmnt/Malnutr-PDOC - Dietary Evaluation Malnutrition Findings (Please click <Entered> for more info): Nutritional Asmnt/Malnutrition Start: 05/12/18 14: 39 Text: Status: Complete Freq: Protocol: Document 05/12/18 14:39 RHAQUE (Rec: 05/12/18 14:59 RHAQUE [id number]) Nutritional Asmnt/Malnutrition Patient General Information Nutritional Screening High Risk Consult Diagnosis UTI, GI bleed Pertinent Medical Hx/Surgical Hx Ventilator dependent Resp failure, Parkinson's, Seizure, Dementia, Chronic Hydrocephalus w HAND BUFFING WHEEL FORMER shunt, DM, Decubitus Ulcer, Subjective Information Consult received for Blood Glucose 233 with Hx of DM while on TF. Pt is trached to a ventilator. Current TF provides 1300ml/day volume, 1560 kcal/day, 78g Protein/ day. 1047 ml water total. Current Diet Order/ Nutrition Support Tube feeding Glucerna 1.2 65ml /hr x 20hrs Patient / S.O Not Indicated Pertinent Medications Docusate, Gemfibrozil, Insulin Aspart, Insulin Novolin, Lactulose, Synthroid, Metoclopramide, Ondansetron, Simvastatin Pertinent Labs (05/12) BUN 65, Na+ 135, Gluc 214, POC Gluc 241 Nutritional Hx/Data Height 1.63 m Height (Calculated Centimeters) 162.6 Current Weight (lbs) 78.018 kg Weight (Calculated Kilograms) 78.0 Weight (Calculated Grams) 01944.9 [place] Body Weight 120 % [place] Body Weight 135 Body Mass Index (BMI) 29.5 GI Symptoms Last BM No Noted B.M. Cultural/Ethnic/Quaker Belief None indicated Skin Integrity/Comment: Germán Score 12. On Nursing flowsheet, pressure ulcer on coccyx noted. No wound care note. Unknown stage. Current %PO Negligible < 25% Estimated Nutritional Goals BEE in Kcals: Adj wt of IBW Calories/Kcals/Kg 25-30 Kcals Calculated 1205-9067 Protein: Adj wt of IBW Protein g/k.2-1.5 Protein Calculated 72-90 Fluid: ml 8909-2639 Nutritional Problem 1. Problem Problem Altered Nutritional related Lab values Etiology Uncontrolled hyperglycemia aeb Signs/Symptoms: (05/12) Gluc 214, POC Gluc 241 Malnutrition Alert Is there a minimum of two criteria No selected? Query Text:Check all the applicable criteria. A minimum of two criteria are recommended for diagnosis of either severe or non-severe malnutrition. Malnutrition Related to Morbid Obesity Malnutrition related to morbid obesity No Intervention/Recommendation Comments Continue Tube feeding as ordered. Pt already on DM tube feeding formula. MD to modify insulin regimen as needed for optimal glycemic control. Will modify nutrient needs based on wound care notes. Expected Outcomes/Goals Expected Outcomes/Goals 1. Labs WNL 2. Tube feeding continue to be tolerated 3. F/U in 2-3 days as HR (05/14 -)
--- NOTE | 2018-05-16 00:09 | Progress Notes ---
DATE: 05/15/2018 SUBJECTIVE: The patient remains in the ICU. She has gross hematuria in spite of frequent irrigations. We are still getting some clots off and on and that may be the reason the bleeding is continuing. Until the clots are completely removed it is sometimes prolonged for a long time. I explained and discussed this with the nurses at great lengths. The patient is tolerating G-tube feeding well and also had a bowel movement. OBJECTIVE: VITAL SIGNS: Temperature 97.3, blood pressure 126/57, heart rate 73, respirations 16, saturating 100%. ABDOMEN: Obese but soft, nontender, nondistended. GENITOURINARY: Bladder well drained. EXTREMITIES: Trace edema. LABORATORY DATA: White count 7.0, hemoglobin 7.2, both are stable. BUN 37, creatinine 1.0, also stable. IMPRESSION AND PLAN: 1. Gross hematuria, most likely from urinary tract infection and cystitis. Continue Morfin catheter drainage and frequent irrigations. Hemoglobin is stable, but if it goes down, may require transfusion. The patient is DNR. Therefore, treatment will be guided accordingly and remain as conservative as possible. 2. 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 3. Ventilator and G-tube dependency, both are stable. 4. Diabetes. 5. Hypertension. No change. JOB# [id number]
[2018-05-16] MEDS: INSULIN ASPART, RECOMBINANT 100 UNITS/ML SUBQ SCH ×4 (00:13→17:41)
[2018-05-16] MEDS: Albuterol/Ipratropium Neb 3 ML AERS HHN SCH ×4 (00:53→18:45)
[2018-05-16] MEDS: Piperacillin Sodium/Tazobact 2.25 GM in Sodium Chloride 0.9% 100 ML IV SCH ×3 (04:27→21:06)
[2018-05-16 04:48] LABS: EOSINOPHILE ABSOLUTE 0.4 Th/cmm (0.1-0.4); MEAN PLATELET VOLUME 7.4 fl
[2018-05-16 04:52] LABS: % BASOPHILS 0.4 % (0.0-2.0); % EOSINOPHILS 5.5 % (0.0-5.0); % LYMPHOCYTES 14.1 % (20.0-50.0); % MONOCYTES 8.4 % (2.0-10.0); % NEUTROPHILS 71.6 % (40.0-80.0); HEMATOCRIT 21.4 % (41.0-60); MEAN CELL VOLUME 83.7 fl (81-100); MEAN CORPUSCULAR HEMOGLOBIN 27.3 pg (27.0-31.0); MEAN CORPUSCULAR HGB CONC 32.6 pg (28.0-36.0); MONOCYTE ABSOLUTE 0.6 Th/cmm (0.3-1.0); PLATELET COUNT 298 Th/cmm (150-400); RED BLOOD COUNT 2.56 Mil/cmm (3.80-5.20); RED CELL DISTRIBUTION WIDTH 16.7 % (11.5-20.0)
[2018-05-16 05:21] LABS: ANION GAP 13.3 (7.0-16.0); BUN - UREA NITROGEN 29 mg/dL (7-25); CALCIUM SERUM 8.2 mg/dL (8.6-10.3); CHLORIDE 111 mEq/L (98-107); GLUCOSE 157 mg/dL (70-105); POTASSIUM SERUM 4.3 mEq/L (3.5-5.1); SODIUM SERUM 140 mEq/L (136-145)
[2018-05-16] MEDS: Levothyroxine 0.1 Mg Tab GT SCH (06:33)
[2018-05-16] MEDS: Ferrous Sulfate 300 MG/5 ML UDC GT SCH (08:34)
[2018-05-16] MEDS: Levetiracetam 500 mg/5mL 5mL UDSyr *for ORAL USE ONLY GT SCH ×2 (08:35→21:07)
[2018-05-16] MEDS: Lactobacillus Rhamnosus GG 15 Billion CFU CAP.SPRINK GT SCH (08:36)
[2018-05-16] MEDS: Multivitamin w/ Minerals Tab GT SCH (08:36)
[2018-05-16] MEDS: Benztropine 1 MG TAB GT SCH ×2 (08:37→17:40)
[2018-05-16] MEDS: Chlorhexidine Gluconate 0.12% 15mL Mouthwash MM SCH ×2 (08:37→19:42)
[2018-05-16] MEDS: INSULIN 70/30 100 UNITS/ML SUBQ SCH ×2 (09:05→21:08)
--- NOTE | 2018-05-16 12:37 | GI Progress Note ---
Subjective - Review of Systems Subjective: NO GI BLEEDING PER STAFF PT HAS HEMATURIA WITH UROLOGY ON BOARD Objective - Results Result Diagrams: 05/16/18 04:36 05/16/18 04:36 Recent Labs: Laboratory Last Values WBC 7.0 Th/cmm (4.8-10.8) 05/16/18 04:36 RBC 2.56 Mil/cmm (3.80-5.20) L 05/16/18 04:36 Hgb 7.0 gm/dL (12-16) L* 05/16/18 04:36 Hct 21.4 % (41.0-60) L 05/16/18 04:36 MCV 83.7 fl (81-100) 05/16/18 04:36 MCH 27.3 pg (27.0-31.0) 05/16/18 04:36 MCHC Differential 32.6 pg (28.0-36.0) 05/16/18 04:36 RDW 16.7 % (11.5-20.0) 05/16/18 04:36 Plt Count 298 Th/cmm (150-400) 05/16/18 04:36 MPV 7.4 fl 05/16/18 04:36 Add Manual Diff YES 05/15/18 04:20 Neutrophils % 71.6 % (40.0-80.0) 05/16/18 04:36 Band Neutrophils % 0 % (0-10) 05/15/18 04:20 Lymphocytes % 14.1 % (20.0-50.0) L 05/16/18 04:36 Monocytes % 8.4 % (2.0-10.0) 05/16/18 04:36 Eosinophils % 5.5 % (0.0-5.0) H 05/16/18 04:36 Basophils % 0.4 % (0.0-2.0) 05/16/18 04:36 Neutrophils (Manual) 80 % (40-80) 05/15/18 04:20 Lymphocytes 14 % (20-50) L 05/15/18 04:20 Monocytes 6 % (2-10) 05/15/18 04:20 Eosinophils 2 % (0-5) 05/12/18 07:10 Basophils 0 % (0-3) 05/12/18 07:10 Sodium 140 mEq/L (136-145) 05/16/18 04:36 Potassium 4.3 mEq/L (3.5-5.1) 05/16/18 04:36 Chloride 111 mEq/L (98-107) H 05/16/18 04:36 Carbon Dioxide 20.0 mEq/L (21.0-31.0) L 05/16/18 04:36 Anion Gap 13.3 (7.0-16.0) 05/16/18 04:36 BUN 29 mg/dL (7-25) H 05/16/18 04:36 Creatinine 1.0 mg/dL (0.6-1.2) 05/16/18 04:36 Est GFR ( Amer) TNP 05/16/18 04:36 Est GFR (Non-Af Amer) TNP 05/16/18 04:36 BUN/Creatinine Ratio 29.0 05/16/18 04:36 Glucose 157 mg/dL (70-105) H 05/16/18 04:36 POC Glucose 148 MG/DL (70 - 105) H 05/16/18 08:18 Whole Bld Lactic Acid 1.45 mmol/L (0.60-1.99) 05/11/18 15:45 Calcium 8.2 mg/dL (8.6-10.3) L 05/16/18 04:36 Phosphorus 3.9 mg/dL (2.5-5.0) 05/11/18 15:45 Magnesium 2.7 mg/dL (1.9-2.7) 05/11/18 15:45 Iron 49 ug/dL (27-139) 05/12/18 07:10 TIBC 264 ug/dL (250-450) 05/12/18 07:10 Iron Saturation 19 % (15-55) 05/12/18 07:10 Unsaturated IBC 215 ug/dL (118-369) 05/12/18 07:10 Total Bilirubin 0.3 mg/dL (0.3-1.0) 05/11/18 15:45 AST 13 U/L (13-39) 05/11/18 15:45 ALT 10 U/L (7-52) 05/11/18 15:45 Alkaline Phosphatase 81 U/L (34-104) 05/11/18 15:45 Ammonia 59 umol/L (16-53) H 05/13/18 04:10 B-Natriuretic Peptide 84.7 pg/mL (5.0-100.0) 05/14/18 04:35 Total Protein 8.3 gm/dL (6.0-8.3) 05/11/18 15:45 Albumin 3.6 gm/dL (3.7-5.3) L 05/11/18 15:45 Globulin 4.7 gm/dL 05/11/18 15:45 Albumin/Globulin Ratio 0.8 (1.0-1.8) L 05/11/18 15:45 Vitamin B12 1516 pg/mL (232-1245) H 05/12/18 07:10 Folic Acid >20.0 ng/mL (>3.0) 05/12/18 07:10 TSH 1.25 uIU/ml (0.34-5.60) 05/11/18 15:45 Urine Source CATH 05/11/18 16:50 Urine Color BROWN 05/11/18 16:50 Urine Clarity CLOUDY (CLEAR) H 05/11/18 16:50 Urine pH 7.0 (4.6 - 8.0) 05/11/18 16:50 Ur Specific Agency 1.010 (1.005-1.030) 05/11/18 16:50 Urine Protein 100 mg/dL (NEGATIVE) H 05/11/18 16:50 Urine Glucose (UA) NEGATIVE mg/dL (NEGATIVE) 05/11/18 16:50 Urine Ketones NEGATIVE mg/dL (NEGATIVE) 05/11/18 16:50 Urine Blood LARGE (NEGATIVE) H 05/11/18 16:50 Urine Nitrate NEGATIVE (NEGATIVE) 05/11/18 16:50 Urine Bilirubin SMALL (NEGATIVE) H 05/11/18 16:50 Urine Urobilinogen 0.2 E.U./dL (0.2 - 1.0) 05/11/18 16:50 Ur Leukocyte Esterase LARGE (NEGATIVE) H 05/11/18 16:50 Urine RBC 25-50 /hpf (0-5) H 05/11/18 16:50 Urine WBC 50-100 /hpf (0-5) H 05/11/18 16:50 Ur Epithelial Cells MODERATE /lpf (FEW) 05/11/18 16:50 Urine Bacteria 4+ /hpf (NONE SEEN) H 05/11/18 16:50 Urine Opiates Screen POSITIVE (NEGATIVE) H 05/11/18 16:50 Urine Methadone Screen NEGATIVE (NEGATIVE) 05/11/18 16:50 Ur Barbiturates Screen NEGATIVE (NEGATIVE) 05/11/18 16:50 Ur Tricyclics Screen NEGATIVE (NEGATIVE) 05/11/18 16:50 Levetiracetam 51.3 ug/mL (10.0-40.0) H 05/11/18 15:45 Ur Phencyclidine Scrn NEGATIVE (NEGATIVE) 05/11/18 16:50 Amphetamines Screen NEGATIVE (NEGATIVE) 05/11/18 16:50 U Methamphetamines Scrn NEGATIVE (NEGATIVE) 05/11/18 16:50 U Benzodiazepines Scrn NEGATIVE (NEGATIVE) 05/11/18 16:50 U Cocaine Metab Screen NEGATIVE (NEGATIVE) 05/11/18 16:50 U Cannabinoids Screen NEGATIVE (NEGATIVE) 05/11/18 16:50 Blood Type A POSITIVE 05/16/18 09:30 Rho(D) Type Cancelled 05/11/18 16:48 Antibody Screen NEGATIVE 05/16/18 09:30 Crossmatch See Detail 05/16/18 09:30 BBK History Checked Cancelled 05/11/18 16:48 - Physical Exam Vitals and I&O: Vital Signs Temp 97.8 F 05/16/18 08:00 Pulse 65 05/16/18 10:00 Resp 16 05/16/18 10:00 BP 144/65 05/16/18 10:00 Pulse Ox 100 05/16/18 10:00 Intake & Output 05/15/18 05/16/18 05/16/18 18:59 06:59 18:59 Intake Total 1152 2245.667 Output Total 1050 1355 Balance 102 890.667 Weight (lbs) 81.284 kg 81.647 kg Intake: Intake, IV Amount 202 510.667 Amikacin 500 mg In 102 Dextrose 5% 100 ml @ 200 mls/hr IV Q24HR [facility] Rx#: [id number] Piperacillin Sodium/ 100 200 Tazobact 2.25 gm In Sodium Chloride 0.9% 100 ml @ 100 mls/hr IV Q8HR [facility] Rx#:[id number] Sodium Chloride 0.9% 1, 310.667 000 ml @ 80 mls/hr IV . [id number] [facility] Rx#:[id number] Tube Feeding 650 1235 Other 300 500 Output: Urine 1050 1355 Other: # Bowel Movements 1 1 Stool Characteristics Soft Soft Soft Brown Brown Brown Black Black Black Green Green Green Weight Source Bedscale Bedscale Active Medications: Current Medications Acetaminophen (Tylenol 650mg/20.3ml Suspension) 650 mg GT Q6HR PRN PRN Reason: Mild Pain or Fever >101 Stop: 07/10/18 19:13 Last Admin: 05/11/18 21:39 Dose: 650 mg Acetaminophen/Hydrocodone Bitart (Montchanin 5mg/325mg) 1 tab GT Q6H PRN PRN Reason: Severe Pain Stop: 07/10/18 19:13 Acetylcysteine (Mucomyst 20%) 2 ml HHN Q6HRT [facility] Stop: 07/11/18 00:59 Last Admin: 05/16/18 06:59 Dose: 2 ml Albuterol Sulfate (Albuterol 2.5mg/3ml Neb Ud) 2.5 mg HHN Q2HRT PRN PRN Reason: Shortness of Breath or Wheeze Stop: 07/10/18 19:22 Albuterol/Ipratropium (Duoneb Neb) 3 ml HHN Q6HRT [facility] Stop: 07/11/18 00:59 Last Admin: 05/16/18 06:57 Dose: 3 ml Albuterol/Ipratropium (Duoneb Neb) 3 ml HHN Q2HRT PRN PRN Reason: Wheezing Stop: 07/10/18 19:13 Amlodipine Besylate (Norvasc) 5 mg GT DAILY [facility] Stop: 07/11/18 08:59 Last Admin: 05/16/18 08:36 Dose: 5 mg Benztropine Mesylate (Cogentin) 1 mg GT BID [facility] Stop: 07/11/18 08:59 Last Admin: 05/16/18 08:37 Dose: 1 mg Carbidopa/Levodopa (Sinemet 25mg-100 Mg) 1 tab GT DAILY [facility] Stop: 07/11/18 08:59 Last Admin: 05/16/18 08:37 Dose: 1 tab Chlorhexidine Gluconate (Peridex) 15 ml MM 0800,2000 [facility] Stop: 07/10/18 19:59 Last Admin: 05/16/18 08:37 Dose: 15 ml Clonazepam (Klonopin) 0.5 mg GT BID [facility]; Protocol Stop: 07/11/18 08:59 Last Admin: 05/16/18 08:35 Dose: 0.5 mg Docusate Sodium (Colace) 250 mg PO BID [facility] Stop: 07/11/18 08:59 Last Admin: 05/16/18 08:35 Dose: 250 mg Ferrous Sulfate (Iron) 330 mg GT DAILY [facility] Stop: 07/11/18 08:59 Last Admin: 05/16/18 08:34 Dose: 330 mg Gemfibrozil (Lopid) 600 mg GT BID [facility] Stop: 07/11/18 08:59 Last Admin: 05/16/18 08:35 Dose: 600 mg Sodium Chloride (Nacl 0.9%) 1,000 mls @ 80 mls/hr IV .[id number] [facility] Stop: 07/10/18 19:29 Last Admin: 05/15/18 21:11 Dose: 80 mls/hr Piperacillin Sod/Tazobactam (Sod 2.25 gm/ Sodium Chloride) 100 mls @ 100 mls/ hr IV Q8HR [facility] Stop: 07/10/18 20:59 Last Admin: 05/16/18 12:24 Dose: 100 mls/hr Amikacin Sulfate 500 mg/ (Dextrose) 102 mls @ 200 mls/hr IV Q24HR [facility] Stop: 07/13/18 14:59 Last Infusion: 05/15/18 16:00 Dose: Infused Insulin Aspart (Novolog) 0 units SUBQ Q6H [facility]; Protocol Stop: 07/11/18 00:00 Last Admin: 05/16/18 12:25 Dose: 2 units Insulin Human Isoph/Insulin Regular (Novolin 70/30) 22 units SUBQ HS [facility]; Protocol Stop: 07/10/18 20:59 Last Admin: 05/15/18 21:09 Dose: 22 units Insulin Human Isoph/Insulin Regular (Novolin 70/30) 45 units SUBQ DAILY [facility]; Protocol Stop: 07/11/18 08:59 Last Admin: 05/16/18 09:05 Dose: Not Given Ipratropium [place] (Atrovent Neb 0.5mg/2.5ml) 0.5 mg HHN Q2HRT PRN PRN Reason: Shortness of Breath or Wheeze Stop: 07/10/18 19:22 Lactobacillus Rhamnosus (Culturelle 15b) 1 each GT DAILY [facility] Stop: 07/11/18 08:59 Last Admin: 05/16/18 08:36 Dose: 1 each Lactulose (Cephulac) 20 gm GT PRN PRN PRN Reason: BOWEL MANAGEMENT Stop: 07/10/18 19:13 Levetiracetam (Keppra) 1,000 mg GT Q12HR [facility] Stop: 07/11/18 08:59 Last Admin: 05/16/18 08:35 Dose: 1,000 mg Levothyroxine Sodium (Synthroid) 0.1 mg GT QDAC [facility] Stop: 07/11/18 07:29 Last Admin: 05/16/18 06:33 Dose: 0.1 mg Lorazepam (Ativan) 1 mg IV Q4H PRN; Protocol PRN Reason: Seizure Stop: 07/10/18 19:22 Metoclopramide HCl (Reglan) 10 mg GT Q8HR [facility] Stop: 07/12/18 12:59 Last Admin: 05/16/18 12:25 Dose: 10 mg Miscellaneous (Calcium Alginate [Juan]) 1 each TP DAILY [facility] Stop: 07/11/18 08:59 Miscellaneous (Collagenase Clostridium Hist. [Santyl]) 1 appl TP DAILY [facility] Stop: 07/11/18 08:59 Miscellaneous (Petrolatum,White/Lanolin [Vitamin A And D Ointment]) 113 gm TP DAILY [facility] Stop: 07/11/18 08:59 Miscellaneous (Amikacin Iv Per Pharmacy) 1 [facility] PRN PRN PRN Reason: PROTOCOL Stop: 07/12/18 15:36 Ondansetron HCl (Zofran) 4 mg IV Q8H PRN PRN Reason: Nausea / Vomiting Stop: 07/10/18 19:23 Pantoprazole Sodium (Protonix) 40 mg IVP BID [facility] Stop: 07/11/18 08:59 Last Admin: 05/16/18 08:35 Dose: 40 mg Simvastatin (Zocor) 20 mg PO HS [facility]; Protocol Stop: 07/10/18 20:59 Last Admin: 05/15/18 21:10 Dose: 20 mg Sucralfate (Carafate) 1 gm GT QID [facility] Stop: 07/10/18 20:59 Last Admin: 05/16/18 12:24 Dose: 1 gm Zinc Sulfate (Zinc Sulfate) 220 mg GT DAILY [facility] Stop: 07/11/18 08:59 Last Admin: 05/16/18 08:36 Dose: 220 mg General: No acute distress Neck: Supple Cardiovascular: Regular rate Lungs: Normal air movement Abdomen: Bowel sounds, Soft, Other (INTACT GT), no Tender - Procedures Procedures: Procedures Procedure Code Date AIRWAYS SURGICAL PROCEDURE 19134 03/03/16 BLOOD TRANSFUSION SERVICE 44996 09/27/17 CHANGE FEEDING DEVICE IN UP INTEST TRACT, RESEARCH STATISTICIAN APPROACH [id number] 12/10/16 CHANGE GASTROSTOMY TUBE 17245 06/06/13 CONTINUOUS INVASIVE MECHANICAL VENTILATION <96 CONSEC HRS 96.71 02/02/13 CONTINUOUS INVASIVE MECHANICAL VENTILATION =/>96 CONSEC HRS 96.72 06/06/13 [place] [address] 03/03/16 IMMUNIZATION ADMIN 06943 03/03/16 INFLUENZA VACCINATION 99.52 02/02/13 INSERT NON-TUNNEL CV CATH 34293 03/03/16 INSERTION OF INFUSION DEV INTO SUP VENA CAVA, PERC APPROACH [id number] 03/03/16 INSJ PICC 5 YR+ W/O IMAGING 84904 02/02/13 INTRODUCTION OF SERUM/TOX/VACCINE INTO MUSCLE, PERC APPROACH [id number] 03/03/16 OTHER GASTROSTOMY 43.19 06/03/10 REPLACE GASTROSTOMY TUBE 97.02 06/06/13 RESPIRATORY VENTILATION, GREATER THAN 96 CONSECUTIVE HOURS [id number] 05/11/18 TRANSFUSE NONAUT RED BLOOD CELLS IN PERIPH VEIN, PERC [id number] 09/27/17 VACCINATION NEC 99.55 02/02/13 VENOUS CATHETERIZATION NEC 38.93 02/02/13 VENT MGMT INPAT INIT DAY 50178 03/03/16 VENT MGMT INPAT SUBQ DAY 75935 03/03/16 Assessment/Plan - Assessment Assessment: IMPRESSION: 1. ANEMIA, SEVERE, S/P TRANSFUSION. MULTIFACTORIAL, BUT MORE LIKELY DUE TO HEMATURIA THAN GI BLOOD LOSS. SCANT BLOOD ASPIRATED VIA GT IS LIKELY TRAUMATIC DUE TO UNDERLYING GASTRITIS. ALSO HAS ANEMIA OF CHRONIC DISEASE, ETC. 2. HEMATURIA. 3. DYSPHAGIA, S/P GT. RECS: 1. MONITOR HGB; TRANSFUSE PRN. 2. GT FEEDS SABRA. 3. PROTONIX. 4. REGLAN. 5. HEMATURIA WORKUP AND TREATMENT PER UROLOGY. 6. DEFER ENDOSCOPIC WORKUP FOR NOW UNLESS OVERT GI BLEEDING.
[2018-05-16] MEDS: Amikacin 500 mg in D5W 100mL (Q24HR) IV SCH (15:39)
--- NOTE | 2018-05-16 16:37 | Internal Medicine Prog Note ---
Internal Medicine Subjective - Subjective Service Date: 05/16/18 Patient is:: asleep, non-verbal, non-interactive, eyes closed, in bed, congested Patient Complaints of:: congestion Per staff patient has:: no adverse event, no episodes of fall, tolerating meds Internal Medicine Objective - Results Result Diagrams: 05/16/18 04:36 05/16/18 04:36 Recent Labs: Laboratory Last Values WBC 7.0 Th/cmm (4.8-10.8) 05/16/18 04:36 RBC 2.56 Mil/cmm (3.80-5.20) L 05/16/18 04:36 Hgb 7.0 gm/dL (12-16) L* 05/16/18 04:36 Hct 21.4 % (41.0-60) L 05/16/18 04:36 MCV 83.7 fl (81-100) 05/16/18 04:36 MCH 27.3 pg (27.0-31.0) 05/16/18 04:36 MCHC Differential 32.6 pg (28.0-36.0) 05/16/18 04:36 RDW 16.7 % (11.5-20.0) 05/16/18 04:36 Plt Count 298 Th/cmm (150-400) 05/16/18 04:36 MPV 7.4 fl 05/16/18 04:36 Add Manual Diff YES 05/15/18 04:20 Neutrophils % 71.6 % (40.0-80.0) 05/16/18 04:36 Band Neutrophils % 0 % (0-10) 05/15/18 04:20 Lymphocytes % 14.1 % (20.0-50.0) L 05/16/18 04:36 Monocytes % 8.4 % (2.0-10.0) 05/16/18 04:36 Eosinophils % 5.5 % (0.0-5.0) H 05/16/18 04:36 Basophils % 0.4 % (0.0-2.0) 05/16/18 04:36 Neutrophils (Manual) 80 % (40-80) 05/15/18 04:20 Lymphocytes 14 % (20-50) L 05/15/18 04:20 Monocytes 6 % (2-10) 05/15/18 04:20 Eosinophils 2 % (0-5) 05/12/18 07:10 Basophils 0 % (0-3) 05/12/18 07:10 Sodium 140 mEq/L (136-145) 05/16/18 04:36 Potassium 4.3 mEq/L (3.5-5.1) 05/16/18 04:36 Chloride 111 mEq/L (98-107) H 05/16/18 04:36 Carbon Dioxide 20.0 mEq/L (21.0-31.0) L 05/16/18 04:36 Anion Gap 13.3 (7.0-16.0) 05/16/18 04:36 BUN 29 mg/dL (7-25) H 05/16/18 04:36 Creatinine 1.0 mg/dL (0.6-1.2) 05/16/18 04:36 Est GFR ( Amer) TNP 05/16/18 04:36 Est GFR (Non-Af Amer) TNP 05/16/18 04:36 BUN/Creatinine Ratio 29.0 05/16/18 04:36 Glucose 157 mg/dL (70-105) H 05/16/18 04:36 POC Glucose 155 MG/DL (70 - 105) H 05/16/18 12:12 Whole Bld Lactic Acid 1.45 mmol/L (0.60-1.99) 05/11/18 15:45 Calcium 8.2 mg/dL (8.6-10.3) L 05/16/18 04:36 Phosphorus 3.9 mg/dL (2.5-5.0) 05/11/18 15:45 Magnesium 2.7 mg/dL (1.9-2.7) 05/11/18 15:45 Iron 49 ug/dL (27-139) 05/12/18 07:10 TIBC 264 ug/dL (250-450) 05/12/18 07:10 Iron Saturation 19 % (15-55) 05/12/18 07:10 Unsaturated IBC 215 ug/dL (118-369) 05/12/18 07:10 Total Bilirubin 0.3 mg/dL (0.3-1.0) 05/11/18 15:45 AST 13 U/L (13-39) 05/11/18 15:45 ALT 10 U/L (7-52) 05/11/18 15:45 Alkaline Phosphatase 81 U/L (34-104) 05/11/18 15:45 Ammonia 59 umol/L (16-53) H 05/13/18 04:10 B-Natriuretic Peptide 84.7 pg/mL (5.0-100.0) 05/14/18 04:35 Total Protein 8.3 gm/dL (6.0-8.3) 05/11/18 15:45 Albumin 3.6 gm/dL (3.7-5.3) L 05/11/18 15:45 Globulin 4.7 gm/dL 05/11/18 15:45 Albumin/Globulin Ratio 0.8 (1.0-1.8) L 05/11/18 15:45 Vitamin B12 1516 pg/mL (232-1245) H 05/12/18 07:10 Folic Acid >20.0 ng/mL (>3.0) 05/12/18 07:10 TSH 1.25 uIU/ml (0.34-5.60) 05/11/18 15:45 Urine Source CATH 05/11/18 16:50 Urine Color BROWN 05/11/18 16:50 Urine Clarity CLOUDY (CLEAR) H 05/11/18 16:50 Urine pH 7.0 (4.6 - 8.0) 05/11/18 16:50 Ur Specific Avant 1.010 (1.005-1.030) 05/11/18 16:50 Urine Protein 100 mg/dL (NEGATIVE) H 05/11/18 16:50 Urine Glucose (UA) NEGATIVE mg/dL (NEGATIVE) 05/11/18 16:50 Urine Ketones NEGATIVE mg/dL (NEGATIVE) 05/11/18 16:50 Urine Blood LARGE (NEGATIVE) H 05/11/18 16:50 Urine Nitrate NEGATIVE (NEGATIVE) 05/11/18 16:50 Urine Bilirubin SMALL (NEGATIVE) H 05/11/18 16:50 Urine Urobilinogen 0.2 E.U./dL (0.2 - 1.0) 05/11/18 16:50 Ur Leukocyte Esterase LARGE (NEGATIVE) H 05/11/18 16:50 Urine RBC 25-50 /hpf (0-5) H 05/11/18 16:50 Urine WBC 50-100 /hpf (0-5) H 05/11/18 16:50 Ur Epithelial Cells MODERATE /lpf (FEW) 05/11/18 16:50 Urine Bacteria 4+ /hpf (NONE SEEN) H 05/11/18 16:50 Amikacin Peak 27.9 ug/mL (20.0-30.0) 05/15/18 16:40 Amikacin Trough 6.4 ug/mL (1.0-8.0) 05/15/18 13:50 Urine Opiates Screen POSITIVE (NEGATIVE) H 05/11/18 16:50 Urine Methadone Screen NEGATIVE (NEGATIVE) 05/11/18 16:50 Ur Barbiturates Screen NEGATIVE (NEGATIVE) 05/11/18 16:50 Ur Tricyclics Screen NEGATIVE (NEGATIVE) 05/11/18 16:50 Levetiracetam 51.3 ug/mL (10.0-40.0) H 05/11/18 15:45 Ur Phencyclidine Scrn NEGATIVE (NEGATIVE) 05/11/18 16:50 Amphetamines Screen NEGATIVE (NEGATIVE) 05/11/18 16:50 U Methamphetamines Scrn NEGATIVE (NEGATIVE) 05/11/18 16:50 U Benzodiazepines Scrn NEGATIVE (NEGATIVE) 05/11/18 16:50 U Cocaine Metab Screen NEGATIVE (NEGATIVE) 05/11/18 16:50 U Cannabinoids Screen NEGATIVE (NEGATIVE) 05/11/18 16:50 Blood Type A POSITIVE 05/16/18 09:30 Rho(D) Type Cancelled 05/11/18 16:48 Antibody Screen NEGATIVE 05/16/18 09:30 Crossmatch See Detail 05/16/18 09:30 BBK History Checked Cancelled 05/11/18 16:48 - Physical Exam Vitals and I&O: Vital Signs Temp 97.3 F 05/16/18 12:00 Pulse 59 05/16/18 15:00 Resp 16 05/16/18 15:00 BP 131/61 05/16/18 15:00 Pulse Ox 100 05/16/18 15:00 Intake & Output 05/15/18 05/16/18 05/16/18 18:59 06:59 18:59 Intake Total 1152 2245.667 100 Output Total 1050 1355 Balance 102 890.667 100 Weight (lbs) 179 lb 3.2 oz 180 lb Intake: Intake, IV Amount 202 510.667 100 Amikacin 500 mg In 102 Dextrose 5% 100 ml @ 200 mls/hr IV Q24HR [facility] Rx#: [id number] Piperacillin Sodium/ 100 200 100 Tazobact 2.25 gm In Sodium Chloride 0.9% 100 ml @ 100 mls/hr IV Q8HR [facility] Rx#:[id number] Sodium Chloride 0.9% 1, 310.667 000 ml @ 80 mls/hr IV . [id number] [facility] Rx#:[id number] Tube Feeding 650 1235 Other 300 500 Output: Urine 1050 1355 Other: # Bowel Movements 1 1 Stool Characteristics Soft Soft Soft Brown Brown Brown Black Black Black Green Green Green Weight Source Bedscale Bedscale Active Medications: Current Medications Acetaminophen (Tylenol 650mg/20.3ml Suspension) 650 mg GT Q6HR PRN PRN Reason: Mild Pain or Fever >101 Stop: 07/10/18 19:13 Last Admin: 05/11/18 21:39 Dose: 650 mg Acetaminophen/Hydrocodone Bitart (Cypress 5mg/325mg) 1 tab GT Q6H PRN PRN Reason: Severe Pain Stop: 07/10/18 19:13 Acetylcysteine (Mucomyst 20%) 2 ml HHN Q6HRT [facility] Stop: 07/11/18 00:59 Last Admin: 05/16/18 14:03 Dose: 2 ml Albuterol Sulfate (Albuterol 2.5mg/3ml Neb Ud) 2.5 mg HHN Q2HRT PRN PRN Reason: Shortness of Breath or Wheeze Stop: 07/10/18 19:22 Albuterol/Ipratropium (Duoneb Neb) 3 ml HHN Q6HRT [facility] Stop: 07/11/18 00:59 Last Admin: 05/16/18 14:03 Dose: 3 ml Albuterol/Ipratropium (Duoneb Neb) 3 ml HHN Q2HRT PRN PRN Reason: Wheezing Stop: 07/10/18 19:13 Amlodipine Besylate (Norvasc) 5 mg GT DAILY [facility] Stop: 07/11/18 08:59 Last Admin: 05/16/18 08:36 Dose: 5 mg Benztropine Mesylate (Cogentin) 1 mg GT BID [facility] Stop: 07/11/18 08:59 Last Admin: 05/16/18 08:37 Dose: 1 mg Carbidopa/Levodopa (Sinemet 25mg-100 Mg) 1 tab GT DAILY [facility] Stop: 07/11/18 08:59 Last Admin: 05/16/18 08:37 Dose: 1 tab Chlorhexidine Gluconate (Peridex) 15 ml MM 0800,2000 [facility] Stop: 07/10/18 19:59 Last Admin: 05/16/18 08:37 Dose: 15 ml Clonazepam (Klonopin) 0.5 mg GT BID [facility]; Protocol Stop: 07/11/18 08:59 Last Admin: 05/16/18 08:35 Dose: 0.5 mg Docusate Sodium (Colace) 250 mg PO BID [facility] Stop: 07/11/18 08:59 Last Admin: 05/16/18 08:35 Dose: 250 mg Ferrous Sulfate (Iron) 330 mg GT DAILY [facility] Stop: 07/11/18 08:59 Last Admin: 05/16/18 08:34 Dose: 330 mg Gemfibrozil (Lopid) 600 mg GT BID [facility] Stop: 07/11/18 08:59 Last Admin: 05/16/18 08:35 Dose: 600 mg Sodium Chloride (Nacl 0.9%) 1,000 mls @ 80 mls/hr IV .[id number] [facility] Stop: 07/10/18 19:29 Last Admin: 05/15/18 21:11 Dose: 80 mls/hr Piperacillin Sod/Tazobactam (Sod 2.25 gm/ Sodium Chloride) 100 mls @ 100 mls/ hr IV Q8HR [facility] Stop: 07/10/18 20:59 Last Infusion: 05/16/18 13:25 Dose: Infused Amikacin Sulfate 500 mg/ (Dextrose) 102 mls @ 200 mls/hr IV Q24HR [facility] Stop: 07/13/18 14:59 Last Admin: 05/16/18 15:39 Dose: 200 mls/hr Insulin Aspart (Novolog) 0 units SUBQ Q6H [facility]; Protocol Stop: 07/11/18 00:00 Last Admin: 05/16/18 12:25 Dose: 2 units Insulin Human Isoph/Insulin Regular (Novolin 70/30) 22 units SUBQ HS [facility]; Protocol Stop: 07/10/18 20:59 Last Admin: 05/15/18 21:09 Dose: 22 units Insulin Human Isoph/Insulin Regular (Novolin 70/30) 45 units SUBQ DAILY [facility]; Protocol Stop: 07/11/18 08:59 Last Admin: 05/16/18 09:05 Dose: Not Given Ipratropium Gary (Atrovent Neb 0.5mg/2.5ml) 0.5 mg HHN Q2HRT PRN PRN Reason: Shortness of Breath or Wheeze Stop: 07/10/18 19:22 Lactobacillus Rhamnosus (Culturelle 15b) 1 each GT DAILY [facility] Stop: 07/11/18 08:59 Last Admin: 05/16/18 08:36 Dose: 1 each Lactulose (Cephulac) 20 gm GT PRN PRN PRN Reason: BOWEL MANAGEMENT Stop: 07/10/18 19:13 Levetiracetam (Keppra) 1,000 mg GT Q12HR [facility] Stop: 07/11/18 08:59 Last Admin: 05/16/18 08:35 Dose: 1,000 mg Levothyroxine Sodium (Synthroid) 0.1 mg GT QDAC [facility] Stop: 07/11/18 07:29 Last Admin: 05/16/18 06:33 Dose: 0.1 mg Lorazepam (Ativan) 1 mg IV Q4H PRN; Protocol PRN Reason: Seizure Stop: 07/10/18 19:22 Metoclopramide HCl (Reglan) 10 mg GT Q8HR [facility] Stop: 07/12/18 12:59 Last Admin: 05/16/18 12:25 Dose: 10 mg Miscellaneous (Calcium Alginate [Juan]) 1 each TP DAILY [facility] Stop: 07/11/18 08:59 Miscellaneous (Collagenase Clostridium Hist. [Santyl]) 1 appl TP DAILY [facility] Stop: 07/11/18 08:59 Miscellaneous (Petrolatum,White/Lanolin [Vitamin A And D Ointment]) 113 gm TP DAILY [facility] Stop: 07/11/18 08:59 Miscellaneous (Amikacin Iv Per Pharmacy) 1 ea MC PRN PRN PRN Reason: PROTOCOL Stop: 07/12/18 15:36 Ondansetron HCl (Zofran) 4 mg IV Q8H PRN PRN Reason: Nausea / Vomiting Stop: 07/10/18 19:23 Pantoprazole Sodium (Protonix) 40 mg IVP BID [facility] Stop: 07/11/18 08:59 Last Admin: 05/16/18 08:35 Dose: 40 mg Simvastatin (Zocor) 20 mg PO HS [facility]; Protocol Stop: 07/10/18 20:59 Last Admin: 05/15/18 21:10 Dose: 20 mg Sucralfate (Carafate) 1 gm GT QID [facility] Stop: 07/10/18 20:59 Last Admin: 05/16/18 12:24 Dose: 1 gm Zinc Sulfate (Zinc Sulfate) 220 mg GT DAILY [facility] Stop: 07/11/18 08:59 Last Admin: 05/16/18 08:36 Dose: 220 mg General: congested, demented, obtunded HEENT: NC/AT, PERRLA Neck: Supple, No JVD, No LAD, + trach, deformity Lungs: congested, rales, ronchi Cardiovascular: RRR, Normal S1, Normal S2, with murmur Abdomen: soft, globular, +GT, positive bowel sound Extremities: excoriation, contracture, deformity Neurological: no change, unable to follow command, bedbound - Procedures Procedures: Procedures Procedure Code Date AIRWAYS SURGICAL PROCEDURE 67186 03/03/16 BLOOD TRANSFUSION SERVICE 95655 09/27/17 CHANGE FEEDING DEVICE IN UP INTEST TRACT, SMASHER APPROACH [id number] 12/10/16 CHANGE GASTROSTOMY TUBE 36070 06/06/13 CONTINUOUS INVASIVE MECHANICAL VENTILATION <96 CONSEC HRS 96.71 02/02/13 CONTINUOUS INVASIVE MECHANICAL VENTILATION =/>96 CONSEC HRS 96.72 06/06/13 [place] [address] 03/03/16 IMMUNIZATION ADMIN 81734 03/03/16 INFLUENZA VACCINATION 99.52 02/02/13 INSERT NON-TUNNEL CV CATH 93281 03/03/16 INSERTION OF INFUSION DEV INTO SUP VENA CAVA, PERC APPROACH [id number] 03/03/16 INSJ PICC 5 YR+ W/O IMAGING 26288 02/02/13 INTRODUCTION OF SERUM/TOX/VACCINE INTO MUSCLE, PERC APPROACH [id number] 03/03/16 OTHER GASTROSTOMY 43.19 06/03/10 REPLACE GASTROSTOMY TUBE 97.02 06/06/13 RESPIRATORY VENTILATION, GREATER THAN 96 CONSECUTIVE HOURS [id number] 05/11/18 TRANSFUSE NONAUT RED BLOOD CELLS IN PERIPH VEIN, PERC [id number] 09/27/17 VACCINATION NEC 99.55 02/02/13 VENOUS CATHETERIZATION NEC 38.93 02/02/13 VENT MGMT INPAT INIT DAY 03/03/16 VENT MGMT INPAT SUBQ DAY 03/03/16 Internal Medicine Assmt/Plan - Assessment Assessment: Anemia--severe , possibly secondary to a GI source versus hematuria from uti/sepsis, possible pneumonia, urinary tract infection, ventilator dependent respiratory failure, chronic hydrocephalus, dementia, decubitus ulcer, diabetes, obesity, Parkinson, leukocytosis, renal insufficiency, hyponatremia. - Plan Plan: monitor h/h closely cont vent support follow up labs in am uro is following continue current plan of care Nutritional Asmnt/Malnutr-PDOC - Dietary Evaluation Malnutrition Findings (Please click <Entered> for more info): Nutritional Asmnt/Malnutrition Start: 05/12/18 14: 39 Text: Status: Complete Freq: Protocol: Document 05/12/18 14:39 RHAQUE (Rec: 05/12/18 14:59 RHAQUE [id number]) Nutritional Asmnt/Malnutrition Patient General Information Nutritional Screening High Risk Consult Diagnosis UTI, GI bleed Pertinent Medical Hx/Surgical Hx Ventilator dependent Resp failure, Parkinson's, Seizure, Dementia, 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 Pt is trached to a ventilator. Current TF provides 1300ml/day volume, 1560 kcal/day, 78g Protein/ day. 1047 ml water total. Current Diet Order/ Nutrition Support Tube feeding Glucerna 1.2 65ml /hr x 20hrs Patient / S.O Not Indicated Pertinent Medications Docusate, Gemfibrozil, Insulin Aspart, Insulin Novolin, Lactulose, Synthroid, Metoclopramide, Ondansetron, Simvastatin Pertinent Labs (05/12) BUN 65, Na+ 135, Gluc 214, POC Gluc 241 Nutritional Hx/Data Height 5 ft 4 in Height (Calculated Centimeters) 162.6 Current Weight (lbs) 172 lb Weight (Calculated Kilograms) 78.0 Weight (Calculated Grams) 15374.9 [place] Body Weight 120 % [place] Body Weight 135 Body Mass Index (BMI) 29.5 GI Symptoms Last BM No Noted B.M. Cultural/Ethnic/Sikh Belief None indicated Skin Integrity/Comment: Germán Score 12. On Nursing flowsheet, pressure ulcer on coccyx noted. No wound care note. Unknown stage. Current %PO Negligible < 25% Estimated Nutritional Goals BEE in Kcals: Adj wt of IBW Calories/Kcals/Kg 25-30 Kcals Calculated 8213-0131 Protein: Adj wt of IBW Protein g/k.2-1.5 Protein Calculated 72-90 Fluid: ml 4367-5970 Nutritional Problem 1. Problem Problem Altered Nutritional related Lab values Etiology Uncontrolled hyperglycemia aeb Signs/Symptoms: (05/12) Gluc 214, POC Gluc 241 Malnutrition Alert Is there a minimum of two criteria No selected? Query Text:Check all the applicable criteria. A minimum of two criteria are recommended for diagnosis of either severe or non-severe malnutrition. Malnutrition Related to Morbid Obesity Malnutrition related to morbid obesity No Intervention/Recommendation Comments Continue Tube feeding as ordered. Pt already on DM tube feeding formula. MD to modify insulin regimen as needed for optimal glycemic control. Will modify nutrient needs based on wound care notes. Expected Outcomes/Goals Expected Outcomes/Goals 1. Labs WNL 2. Tube feeding continue to be tolerated 3. F/U in 2-3 days as HR (05/14 -)
--- NOTE | 2018-05-16 17:02 | Infectious Disease Prog Note ---
Infectious Disease Subjective - Review of Systems Service Date: 05/16/18 Events since last encounter: cc pneumonia. decubiti hpi- sputum + psedomonas s amikacin ros bno fevr o.e vss on vent trach chest vedicular abd soft ext pilse Vital Signs - 24 hr 05/15/18 05/15/18 05/15/18 17:33 18:00 19:00 Temp HR 66 61 59 RR 16 16 BP 134/64 149/72 O2 Sat % 100 100 100 05/15/18 05/15/18 05/15/18 19:20 20:00 21:00 Temp 97.4 F HR 58 60 66 RR 16 17 BP 130/64 151/74 O2 Sat % 100 100 100 05/15/18 05/15/18 05/15/18 21:05 22:00 23:00 Temp HR 59 66 67 RR 16 16 BP 142/66 147/69 O2 Sat % 100 100 100 05/15/18 05/16/18 05/16/18 23:20 00:00 01:00 Temp 98 F HR 61 66 66 RR 16 16 BP 153/72 159/81 O2 Sat % 100 100 100 05/16/18 05/16/18 05/16/18 01:25 02:00 03:00 Temp HR 58 68 63 RR 16 16 BP 145/66 145/65 O2 Sat % 100 100 100 05/16/18 05/16/18 05/16/18 03:05 04:00 05:00 Temp 98 F HR 58 64 71 RR 16 16 BP 149/71 143/67 O2 Sat % 100 100 100 05/16/18 05/16/18 05/16/18 05:25 06:00 06:59 Temp HR 59 61 59 RR 16 BP 144/67 O2 Sat % 100 100 100 05/16/18 05/16/18 05/16/18 08:00 08:36 09:00 Temp 97.8 F HR 62 61 59 RR 16 16 BP 147/69 135/64 135/64 O2 Sat % 100 99 05/16/18 05/16/18 05/16/18 09:30 10:00 11:00 Temp HR 66 65 58 RR 16 16 BP 144/65 129/57 O2 Sat % 100 100 100 05/16/18 05/16/18 05/16/18 12:00 13:00 14:00 Temp 97.3 F HR 69 60 60 RR 16 16 16 BP 149/73 128/70 141/68 O2 Sat % 100 100 100 05/16/18 05/16/18 14:03 15:00 Temp HR 68 59 RR 16 BP 131/61 O2 Sat % 100 100 Allergies Allergy/AdvReac Type Severity Reaction Status Date / Time No Known Allergies Allergy Verified 03/03/16 18:27 Laboratory Results - last 24 hr 05/15/18 05/15/18 05/16/18 13:50 16:40 00:11 WBC RBC Hgb Hct MCV MCH MCHC Differential RDW Plt Count MPV Neutrophils % Lymphocytes % Monocytes % Eosinophils % Basophils % Sodium Potassium Chloride Carbon Dioxide Anion Gap BUN Creatinine Est GFR ( Amer) Est GFR (Non-Af Amer) BUN/Creatinine Ratio Glucose POC Glucose 155 H Calcium Amikacin Peak 27.9 Amikacin Trough 6.4 Blood Type Antibody Screen Crossmatch 05/16/18 05/16/18 05/16/18 04:36 04:36 06:00 WBC 7.0 RBC 2.56 L Hgb 7.0 L* Hct 21.4 L MCV 83.7 MCH 27.3 MCHC Differential 32.6 RDW 16.7 Plt Count 298 MPV 7.4 Neutrophils % 71.6 Lymphocytes % 14.1 L Monocytes % 8.4 Eosinophils % 5.5 H Basophils % 0.4 Sodium 140 Potassium 4.3 Chloride 111 H Carbon Dioxide 20.0 L Anion Gap 13.3 BUN 29 H Creatinine 1.0 Est GFR ( Amer) TNP Est GFR (Non-Af Amer) TNP BUN/Creatinine Ratio 29.0 Glucose 157 H POC Glucose 142 H Calcium 8.2 L Amikacin Peak Amikacin Trough Blood Type Antibody Screen Crossmatch 05/16/18 05/16/18 05/16/18 08:18 09:30 12:12 WBC RBC Hgb Hct MCV MCH MCHC Differential RDW Plt Count MPV Neutrophils % Lymphocytes % Monocytes % Eosinophils % Basophils % Sodium Potassium Chloride Carbon Dioxide Anion Gap BUN Creatinine Est GFR ( Amer) Est GFR (Non-Af Amer) BUN/Creatinine Ratio Glucose POC Glucose 148 H 155 H Calcium Amikacin Peak Amikacin Trough Blood Type A POSITIVE Antibody Screen NEGATIVE Crossmatch See Detail Microbiology 05/11/18 15:31 Blood - Preliminary NO GROWTH AFTER 48 HOURS 05/11/18 15:45 Blood - Preliminary NO GROWTH AFTER 48 HOURS 05/12/18 00:10 Sputum Culture - Endotracheal Wash Gram Stain - Final 05/12/18 00:10 Sputum Culture - Endotracheal Wash Sputum Culture - Final Pseudomonas Aeruginosa 05/11/18 16:50 Urine,Clean Catch Urine Culture - Final Klebsiella Pneumoniae Esbl Proteus Mirabilis 05/11/18 12:30 Nares - Final NO MRSA ISOLATED Diagnoses SEPSIS, UNSPECIFIED ORGANISM (05/11/18) ANEMIA, UNSPECIFIED (05/11/18) PNEUMONIA, UNSPECIFIED ORGANISM (05/11/18) CHRONIC RESPIRATORY FAILURE, UNSP W HYPOXIA OR HYPERCAPNIA (05/11/18) URINARY TRACT INFECTION, SITE NOT SPECIFIED (05/11/18) WEAKNESS (05/11/18) DEPENDENCE ON SUPPLEMENTAL OXYGEN (05/11/18) Laboratory Results - last 24 hr 05/15/18 05/15/18 05/16/18 13:50 16:40 00:11 WBC RBC Hgb Hct MCV MCH MCHC Differential RDW Plt Count MPV Neutrophils % Lymphocytes % Monocytes % Eosinophils % Basophils % Sodium Potassium Chloride Carbon Dioxide Anion Gap BUN Creatinine Est GFR ( Amer) Est GFR (Non-Af Amer) BUN/Creatinine Ratio Glucose POC Glucose 155 H Calcium Amikacin Peak 27.9 Amikacin Trough 6.4 Blood Type Antibody Screen Crossmatch 05/16/18 05/16/18 05/16/18 04:36 04:36 06:00 WBC 7.0 RBC 2.56 L Hgb 7.0 L* Hct 21.4 L MCV 83.7 MCH 27.3 MCHC Differential 32.6 RDW 16.7 Plt Count 298 MPV 7.4 Neutrophils % 71.6 Lymphocytes % 14.1 L Monocytes % 8.4 Eosinophils % 5.5 H Basophils % 0.4 Sodium 140 Potassium 4.3 Chloride 111 H Carbon Dioxide 20.0 L Anion Gap 13.3 BUN 29 H Creatinine 1.0 Est GFR ( Amer) TNP Est GFR (Non-Af Amer) TNP BUN/Creatinine Ratio 29.0 Glucose 157 H POC Glucose 142 H Calcium 8.2 L Amikacin Peak Amikacin Trough Blood Type Antibody Screen Crossmatch 05/16/18 05/16/18 05/16/18 08:18 09:30 12:12 WBC RBC Hgb Hct MCV MCH MCHC Differential RDW Plt Count MPV Neutrophils % Lymphocytes % Monocytes % Eosinophils % Basophils % Sodium Potassium Chloride Carbon Dioxide Anion Gap BUN Creatinine Est GFR ( Amer) Est GFR (Non-Af Amer) BUN/Creatinine Ratio Glucose POC Glucose 148 H 155 H Calcium Amikacin Peak Amikacin Trough Blood Type A POSITIVE Antibody Screen NEGATIVE Crossmatch See Detail Current Medications Acetaminophen (Tylenol 650mg/20.3ml Suspension) 650 mg GT Q6HR PRN PRN Reason: Mild Pain or Fever >101 Stop: 07/10/18 19:13 Last Admin: 05/11/18 21:39 Dose: 650 mg Acetaminophen/Hydrocodone Bitart (Brick 5mg/325mg) 1 tab GT Q6H PRN PRN Reason: Severe Pain Stop: 07/10/18 19:13 Acetylcysteine (Mucomyst 20%) 2 ml HHN Q6HRT [facility] Stop: 07/11/18 00:59 Last Admin: 05/16/18 14:03 Dose: 2 ml Albuterol Sulfate (Albuterol 2.5mg/3ml Neb Ud) 2.5 mg HHN Q2HRT PRN PRN Reason: Shortness of Breath or Wheeze Stop: 07/10/18 19:22 Albuterol/Ipratropium (Duoneb Neb) 3 ml HHN Q6HRT [facility] Stop: 07/11/18 00:59 Last Admin: 05/16/18 14:03 Dose: 3 ml Albuterol/Ipratropium (Duoneb Neb) 3 ml HHN Q2HRT PRN PRN Reason: Wheezing Stop: 07/10/18 19:13 Amlodipine Besylate (Norvasc) 5 mg GT DAILY [facility] Stop: 07/11/18 08:59 Last Admin: 05/16/18 08:36 Dose: 5 mg Benztropine Mesylate (Cogentin) 1 mg GT BID [facility] Stop: 07/11/18 08:59 Last Admin: 05/16/18 08:37 Dose: 1 mg Carbidopa/Levodopa (Sinemet 25mg-100 Mg) 1 tab GT DAILY [facility] Stop: 07/11/18 08:59 Last Admin: 05/16/18 08:37 Dose: 1 tab Chlorhexidine Gluconate (Peridex) 15 ml MM 0800,1999 [facility] Stop: 07/10/18 19:59 Last Admin: 05/16/18 08:37 Dose: 15 ml Clonazepam (Klonopin) 0.5 mg GT BID [facility]; Protocol Stop: 07/11/18 08:59 Last Admin: 05/16/18 08:35 Dose: 0.5 mg Docusate Sodium (Colace) 250 mg PO BID [facility] Stop: 07/11/18 08:59 Last Admin: 05/16/18 08:35 Dose: 250 mg Ferrous Sulfate (Iron) 330 mg GT DAILY [facility] Stop: 07/11/18 08:59 Last Admin: 05/16/18 08:34 Dose: 330 mg Gemfibrozil (Lopid) 600 mg GT BID [facility] Stop: 07/11/18 08:59 Last Admin: 05/16/18 08:35 Dose: 600 mg Sodium Chloride (Nacl 0.9%) 1,000 mls @ 80 mls/hr IV .[id number] [facility] Stop: 07/10/18 19:29 Last Admin: 05/15/18 21:11 Dose: 80 mls/hr Piperacillin Sod/Tazobactam (Sod 2.25 gm/ Sodium Chloride) 100 mls @ 100 mls/ hr IV Q8HR [facility] Stop: 07/10/18 20:59 Last Infusion: 05/16/18 13:25 Dose: Infused Amikacin Sulfate 500 mg/ (Dextrose) 102 mls @ 200 mls/hr IV Q24HR [facility] Stop: 07/13/18 14:59 Last Admin: 05/16/18 15:39 Dose: 200 mls/hr Insulin Aspart (Novolog) 0 units SUBQ Q6H [facility]; Protocol Stop: 07/11/18 00:00 Last Admin: 05/16/18 12:25 Dose: 2 units Insulin Human Isoph/Insulin Regular (Novolin 70/30) 22 units SUBQ HS [facility]; Protocol Stop: 07/10/18 20:59 Last Admin: 05/15/18 21:09 Dose: 22 units Insulin Human Isoph/Insulin Regular (Novolin 70/30) 45 units SUBQ DAILY [facility]; Protocol Stop: 07/11/18 08:59 Last Admin: 05/16/18 09:05 Dose: Not Given Ipratropium Calvin (Atrovent Neb 0.5mg/2.5ml) 0.5 mg HHN Q2HRT PRN PRN Reason: Shortness of Breath or Wheeze Stop: 07/10/18 19:22 Lactobacillus Rhamnosus (Culturelle 15b) 1 each GT DAILY [facility] Stop: 07/11/18 08:59 Last Admin: 05/16/18 08:36 Dose: 1 each Lactulose (Cephulac) 20 gm GT PRN PRN PRN Reason: BOWEL MANAGEMENT Stop: 07/10/18 19:13 Levetiracetam (Keppra) 1,000 mg GT Q12HR [facility] Stop: 07/11/18 08:59 Last Admin: 05/16/18 08:35 Dose: 1,000 mg Levothyroxine Sodium (Synthroid) 0.1 mg GT QDAC [facility] Stop: 07/11/18 07:29 Last Admin: 05/16/18 06:33 Dose: 0.1 mg Lorazepam (Ativan) 1 mg IV Q4H PRN; Protocol PRN Reason: Seizure Stop: 07/10/18 19:22 Metoclopramide HCl (Reglan) 10 mg GT Q8HR [facility] Stop: 07/12/18 12:59 Last Admin: 05/16/18 12:25 Dose: 10 mg Miscellaneous (Calcium Alginate [Juan]) 1 each TP DAILY [facility] Stop: 07/11/18 08:59 Miscellaneous (Collagenase Clostridium Hist. [Santyl]) 1 appl TP DAILY [facility] Stop: 07/11/18 08:59 Miscellaneous (Petrolatum,White/Lanolin [Vitamin A And D Ointment]) 113 gm TP DAILY [facility] Stop: 07/11/18 08:59 Miscellaneous (Amikacin Iv Per Pharmacy) 1 ea MC PRN PRN PRN Reason: PROTOCOL Stop: 07/12/18 15:36 Ondansetron HCl (Zofran) 4 mg IV Q8H PRN PRN Reason: Nausea / Vomiting Stop: 07/10/18 19:23 Pantoprazole Sodium (Protonix) 40 mg IVP BID [facility] Stop: 07/11/18 08:59 Last Admin: 05/16/18 08:35 Dose: 40 mg Simvastatin (Zocor) 20 mg PO HS [facility]; Protocol Stop: 07/10/18 20:59 Last Admin: 05/15/18 21:10 Dose: 20 mg Sucralfate (Carafate) 1 gm GT QID [facility] Stop: 07/10/18 20:59 Last Admin: 05/16/18 12:24 Dose: 1 gm Zinc Sulfate (Zinc Sulfate) 220 mg GT DAILY [facility] Stop: 07/11/18 08:59 Last Admin: 05/16/18 08:36 Dose: 220 mg 05/14/18 16:21 Wound Care Notes by Eric Connors Wound Evaluation: Wound Consult ordered for low Germán score. Patient evaluated for a low Germán score of 12. Patient was asleep, non- responsive to voice, responsive to tactile stimuli, and received in a [place] InTouch bed with an IsoFlex CRUZ mattress. Patient is unable to turn in bed independently. Skin is fair; Scar tissue present on Sacral-Coccygeal area. Recommend: Reposition patient [id number] only every two hours with pillow support. Elevate, off-load, and float bilateral heels with one pillow lengthwise under each extremity at all times. Offload pressure areas with pillows for pressure re-distribution. Perform skin care and monitor skin integrity q shift. Use moisture barrier cream on moisture susceptible areas qid and as needed for soiling. Initiate low air loss therapy. Will continue to follow as a Germán. Initialized on 05/14/18 16:21 - END OF NOTE Subjective: cc pn uti hpi- cx noted i n icu on vent vs chest claer abd soft trach dx Vital Signs - 24 hr 05/13/18 05/13/18 05/13/18 18:00 18:53 19:00 Temp HR 79 74 69 RR 15 16 BP 138/58 143/53 O2 Sat % 100 100 100 05/13/18 05/13/18 05/13/18 20:00 20:29 21:00 Temp 98.1 F HR 83 83 74 RR 16 16 BP 151/75 140/67 O2 Sat % 100 100 100 05/13/18 05/13/18 05/13/18 22:00 22:57 23:00 Temp HR 71 73 71 RR 16 16 BP 135/67 135/67 O2 Sat % 100 100 100 05/14/18 05/14/18 05/14/18 00:00 00:57 01:00 Temp 98.6 F HR 73 78 74 RR 16 16 BP 139/71 149/73 O2 Sat % 100 100 100 05/14/18 05/14/18 05/14/18 02:00 02:48 03:00 Temp HR 73 74 70 RR 16 16 BP 148/68 133/58 O2 Sat % 100 100 100 05/14/18 05/14/18 05/14/18 03:32 04:00 04:33 Temp 98.3 F HR 66 77 RR 16 16 BP 136/56 O2 Sat % 100 100 05/14/18 05/14/18 05/14/18 05:00 06:00 07:00 Temp 99.0 F HR 79 76 79 RR 15 16 16 BP 133/60 130/63 143/67 O2 Sat % 100 100 100 05/14/18 05/14/18 05/14/18 07:46 08:00 08:40 Temp 98.7 F HR 77 69 70 RR 16 BP 124/60 O2 Sat % 100 100 100 05/14/18 05/14/18 05/14/18 09:00 09:31 10:00 Temp 98.6 F 99.1 F HR 70 71 78 RR 16 16 BP 122/54 122/54 135/67 O2 Sat % 100 100 05/14/18 05/14/18 05/14/18 11:00 11:07 12:00 Temp 98.7 F 98.6 F HR 71 76 69 RR 16 14 BP 120/55 117/52 O2 Sat % 100 100 100 05/14/18 05/14/18 05/14/18 12:59 13:00 14:00 Temp 98.5 F 98.6 F HR 66 65 81 RR 16 16 BP 131/64 131/64 O2 Sat % 100 100 100 05/14/18 05/14/18 05/14/18 15:14 16:00 17:32 Temp HR 79 92 RR BP O2 Sat % 100 100 100 Laboratory Results - last 24 hr 05/12/18 05/13/18 05/13/18 20:56 17:59 21:56 WBC RBC Hgb Hct MCV MCH MCHC Differential RDW Plt Count MPV Add Manual Diff Band Neutrophils % Neutrophils (Manual) Lymphocytes Monocytes Sodium Potassium Chloride Carbon Dioxide Anion Gap BUN Creatinine Est GFR ( Amer) Est GFR (Non-Af Amer) BUN/Creatinine Ratio Glucose POC Glucose 207 H 176 H 148 H Calcium B-Natriuretic Peptide 05/13/18 05/14/18 05/14/18 21:58 00:35 04:35 WBC 8.1 RBC 2.68 L Hgb 7.1 L* Hct 21.9 L MCV 81.9 MCH 26.4 L MCHC Differential 32.2 RDW 16.9 Plt Count 286 MPV 7.4 Add Manual Diff YES Band Neutrophils % 2 Neutrophils (Manual) 80 Lymphocytes 12 L Monocytes 6 Sodium Potassium Chloride Carbon Dioxide Anion Gap BUN Creatinine Est GFR ( Amer) Est GFR (Non-Af Amer) BUN/Creatinine Ratio Glucose POC Glucose 149 H 161 H Calcium B-Natriuretic Peptide 05/14/18 05/14/18 05/14/18 04:35 04:35 05:30 WBC RBC Hgb Hct MCV MCH MCHC Differential RDW Plt Count MPV Add Manual Diff Band Neutrophils % Neutrophils (Manual) Lymphocytes Monocytes Sodium 139 Potassium 4.2 Chloride 106 Carbon Dioxide 22.1 Anion Gap 15.1 BUN 50 H Creatinine 1.3 H Est GFR ( Amer) TNP Est GFR (Non-Af Amer) TNP BUN/Creatinine Ratio 38.5 Glucose 165 H POC Glucose 143 H Calcium 8.4 L B-Natriuretic Peptide 84.7 05/14/18 05/14/18 09:27 13:29 WBC RBC Hgb Hct MCV MCH MCHC Differential RDW Plt Count MPV Add Manual Diff Band Neutrophils % Neutrophils (Manual) Lymphocytes Monocytes Sodium Potassium Chloride Carbon Dioxide Anion Gap BUN Creatinine Est GFR ( Amer) Est GFR (Non-Af Amer) BUN/Creatinine Ratio Glucose POC Glucose 176 H 161 H Calcium B-Natriuretic Peptide Diagnoses SEPSIS, UNSPECIFIED ORGANISM (05/11/18) ANEMIA, UNSPECIFIED (05/11/18) PNEUMONIA, UNSPECIFIED ORGANISM (05/11/18) CHRONIC RESPIRATORY FAILURE, UNSP W HYPOXIA OR HYPERCAPNIA (05/11/18) URINARY TRACT INFECTION, SITE NOT SPECIFIED (05/11/18) WEAKNESS (05/11/18) DEPENDENCE ON SUPPLEMENTAL OXYGEN (05/11/18) Current Medications Acetaminophen (Tylenol 650mg/20.3ml Suspension) 650 mg GT Q6HR PRN PRN Reason: Mild Pain or Fever >101 Stop: 07/10/18 19:13 Last Admin: 05/11/18 21:39 Dose: 650 mg Acetaminophen/Hydrocodone Bitart (Brick 5mg/325mg) 1 tab GT Q6H PRN PRN Reason: Severe Pain Stop: 07/10/18 19:13 Acetylcysteine (Mucomyst 20%) 2 ml HHN Q6HRT [facility] Stop: 07/11/18 00:59 Last Admin: 05/14/18 12:59 Dose: 2 ml Albuterol Sulfate (Albuterol 2.5mg/3ml Neb Ud) 2.5 mg HHN Q2HRT PRN PRN Reason: Shortness of Breath or Wheeze Stop: 07/10/18 19:22 Albuterol/Ipratropium (Duoneb Neb) 3 ml HHN Q6HRT [facility] Stop: 07/11/18 00:59 Last Admin: 05/14/18 12:59 Dose: 3 ml Albuterol/Ipratropium (Duoneb Neb) 3 ml HHN Q2HRT PRN PRN Reason: Wheezing Stop: 07/10/18 19:13 Amlodipine Besylate (Norvasc) 5 mg GT DAILY [facility] Stop: 07/11/18 08:59 Last Admin: 05/14/18 09:31 Dose: 5 mg Benztropine Mesylate (Cogentin) 1 mg GT BID [facility] Stop: 07/11/18 08:59 Last Admin: 05/14/18 16:38 Dose: 1 mg Carbidopa/Levodopa (Sinemet 25mg-100 Mg) 1 tab GT DAILY [facility] Stop: 07/11/18 08:59 Last Admin: 05/14/18 09:30 Dose: 1 tab Chlorhexidine Gluconate (Peridex) 15 ml MM 0800,2000 [facility] Stop: 07/10/18 19:59 Last Admin: 05/14/18 09:32 Dose: 15 ml Clonazepam (Klonopin) 0.5 mg GT BID [facility]; Protocol Stop: 07/11/18 08:59 Last Admin: 05/14/18 16:38 Dose: 0.5 mg Docusate Sodium (Colace) 250 mg PO BID [facility] Stop: 07/11/18 08:59 Last Admin: 05/14/18 16:38 Dose: 250 mg Ferrous Sulfate (Iron) 330 mg GT DAILY [facility] Stop: 07/11/18 08:59 Last Admin: 05/14/18 09:30 Dose: 330 mg Gemfibrozil (Lopid) 600 mg GT BID [facility] Stop: 07/11/18 08:59 Last Admin: 05/14/18 16:38 Dose: 600 mg Sodium Chloride (Nacl 0.9%) 1,000 mls @ 80 mls/hr IV .[id number] [facility] Stop: 07/10/18 19:29 Last Admin: 05/14/18 16:48 Dose: 80 mls/hr Piperacillin Sod/Tazobactam (Sod 2.25 gm/ Sodium Chloride) 100 mls @ 100 mls/ hr IV Q8HR [facility] Stop: 07/10/18 20:59 Last Admin: 05/14/18 13:44 Dose: 100 mls/hr Amikacin Sulfate 500 mg/ (Dextrose) 102 mls @ 200 mls/hr IV Q24HR [facility] Stop: 07/13/18 14:59 Last Admin: 05/14/18 15:44 Dose: 200 mls/hr Insulin Aspart (Novolog) 0 units SUBQ Q6H [facility]; Protocol Stop: 07/11/18 00:00 Last Admin: 05/14/18 13:44 Dose: 2 units Insulin Human Isoph/Insulin Regular (Novolin 70/30) 22 units SUBQ HS [facility]; Protocol Stop: 07/10/18 20:59 Last Admin: 05/13/18 21:45 Dose: 22 units Insulin Human Isoph/Insulin Regular (Novolin 70/30) 45 units SUBQ DAILY [facility]; Protocol Stop: 07/11/18 08:59 Last Admin: 05/14/18 09:34 Dose: 45 units Ipratropium Calvin (Atrovent Neb 0.5mg/2.5ml) 0.5 mg HHN Q2HRT PRN PRN Reason: Shortness of Breath or Wheeze Stop: 07/10/18 19:22 Lactobacillus Rhamnosus (Culturelle 15b) 1 each GT DAILY [facility] Stop: 07/11/18 08:59 Last Admin: 05/14/18 09:30 Dose: 1 each Lactulose (Cephulac) 20 gm GT PRN PRN PRN Reason: BOWEL MANAGEMENT Stop: 07/10/18 19:13 Levetiracetam (Keppra) 1,000 mg GT Q12HR [facility] Stop: 07/11/18 08:59 Last Admin: 05/14/18 09:31 Dose: 1,000 mg Levothyroxine Sodium (Synthroid) 0.1 mg GT QDAC [facility] Stop: 07/11/18 07:29 Last Admin: 05/14/18 09:30 Dose: 0.1 mg Lorazepam (Ativan) 1 mg IV Q4H PRN; Protocol PRN Reason: Seizure Stop: 07/10/18 19:22 Metoclopramide HCl (Reglan) 10 mg GT Q8HR [facility] Stop: 07/12/18 12:59 Last Admin: 05/14/18 13:44 Dose: 10 mg Miscellaneous (Calcium Alginate [Juan]) 1 each TP DAILY [facility] Stop: 07/11/18 08:59 Miscellaneous (Collagenase Clostridium Hist. [Santyl]) 1 appl TP DAILY [facility] Stop: 07/11/18 08:59 Miscellaneous (Petrolatum,White/Lanolin [Vitamin A And D Ointment]) 113 gm TP DAILY [facility] Stop: 07/11/18 08:59 Miscellaneous (Amikacin Iv Per Pharmacy) 1 ea PRN PRN PRN Reason: PROTOCOL Stop: 07/12/18 15:36 Ondansetron HCl (Zofran) 4 mg IV Q8H PRN PRN Reason: Nausea / Vomiting Stop: 07/10/18 19:23 Pantoprazole Sodium (Protonix) 40 mg IVP BID [facility] Stop: 07/11/18 08:59 Last Admin: 05/14/18 16:39 Dose: 40 mg Simvastatin (Zocor) 20 mg PO HS [facility]; Protocol Stop: 07/10/18 20:59 Last Admin: 05/13/18 21:10 Dose: 20 mg Sucralfate (Carafate) 1 gm GT QID [facility] Stop: 07/10/18 20:59 Last Admin: 05/14/18 16:38 Dose: 1 gm Zinc Sulfate (Zinc Sulfate) 220 mg GT DAILY [facility] Stop: 07/11/18 08:59 Last Admin: 05/14/18 09:31 Dose: 220 mg 05/14/18 16:21 Wound Care Notes by Eric Connors Wound Evaluation: Wound Consult ordered for low Germán score. Patient evaluated for a low Germán score of 12. Patient was asleep, non- responsive to voice, responsive to tactile stimuli, and received in a [place] InTouch bed with an IsoFlex CRUZ mattress. Patient is unable to turn in bed independently. Skin is fair; Scar tissue present on Sacral-Coccygeal area. Recommend: Reposition patient [id number] only every two hours with pillow support. Elevate, off-load, and float bilateral heels with one pillow lengthwise under each extremity at all times. Offload pressure areas with pillows for pressure re-distribution. Perform skin care and monitor skin integrity q shift. Use moisture barrier cream on moisture susceptible areas qid and as needed for soiling. Initiate low air loss therapy. Will continue to follow as a Germán. Initialized on 05/14/18 16:21 - END OF NOTE Infectious Disease Objective - Results Result Diagrams: 05/16/18 04:36 05/16/18 04:36 Recent Labs: Laboratory Last Values WBC 7.0 Th/cmm (4.8-10.8) 05/16/18 04:36 RBC 2.56 Mil/cmm (3.80-5.20) L 05/16/18 04:36 Hgb 7.0 gm/dL (12-16) L* 05/16/18 04:36 Hct 21.4 % (41.0-60) L 05/16/18 04:36 MCV 83.7 fl (81-100) 05/16/18 04:36 MCH 27.3 pg (27.0-31.0) 05/16/18 04:36 MCHC Differential 32.6 pg (28.0-36.0) 05/16/18 04:36 RDW 16.7 % (11.5-20.0) 05/16/18 04:36 Plt Count 298 Th/cmm (150-400) 05/16/18 04:36 MPV 7.4 fl 05/16/18 04:36 Add Manual Diff YES 05/15/18 04:20 Neutrophils % 71.6 % (40.0-80.0) 05/16/18 04:36 Band Neutrophils % 0 % (0-10) 05/15/18 04:20 Lymphocytes % 14.1 % (20.0-50.0) L 05/16/18 04:36 Monocytes % 8.4 % (2.0-10.0) 05/16/18 04:36 Eosinophils % 5.5 % (0.0-5.0) H 05/16/18 04:36 Basophils % 0.4 % (0.0-2.0) 05/16/18 04:36 Neutrophils (Manual) 80 % (40-80) 05/15/18 04:20 Lymphocytes 14 % (20-50) L 05/15/18 04:20 Monocytes 6 % (2-10) 05/15/18 04:20 Eosinophils 2 % (0-5) 05/12/18 07:10 Basophils 0 % (0-3) 05/12/18 07:10 Sodium 140 mEq/L (136-145) 05/16/18 04:36 Potassium 4.3 mEq/L (3.5-5.1) 05/16/18 04:36 Chloride 111 mEq/L (98-107) H 05/16/18 04:36 Carbon Dioxide 20.0 mEq/L (21.0-31.0) L 05/16/18 04:36 Anion Gap 13.3 (7.0-16.0) 05/16/18 04:36 BUN 29 mg/dL (7-25) H 05/16/18 04:36 Creatinine 1.0 mg/dL (0.6-1.2) 05/16/18 04:36 Est GFR ( Amer) TNP 05/16/18 04:36 Est GFR (Non-Af Amer) TNP 05/16/18 04:36 BUN/Creatinine Ratio 29.0 05/16/18 04:36 Glucose 157 mg/dL (70-105) H 05/16/18 04:36 POC Glucose 155 MG/DL (70 - 105) H 05/16/18 12:12 Whole Bld Lactic Acid 1.45 mmol/L (0.60-1.99) 05/11/18 15:45 Calcium 8.2 mg/dL (8.6-10.3) L 05/16/18 04:36 Phosphorus 3.9 mg/dL (2.5-5.0) 05/11/18 15:45 Magnesium 2.7 mg/dL (1.9-2.7) 05/11/18 15:45 Iron 49 ug/dL (27-139) 05/12/18 07:10 TIBC 264 ug/dL (250-450) 05/12/18 07:10 Iron Saturation 19 % (15-55) 05/12/18 07:10 Unsaturated IBC 215 ug/dL (118-369) 05/12/18 07:10 Total Bilirubin 0.3 mg/dL (0.3-1.0) 05/11/18 15:45 AST 13 U/L (13-39) 05/11/18 15:45 ALT 10 U/L (7-52) 05/11/18 15:45 Alkaline Phosphatase 81 U/L (34-104) 05/11/18 15:45 Ammonia 59 umol/L (16-53) H 05/13/18 04:10 B-Natriuretic Peptide 84.7 pg/mL (5.0-100.0) 05/14/18 04:35 Total Protein 8.3 gm/dL (6.0-8.3) 05/11/18 15:45 Albumin 3.6 gm/dL (3.7-5.3) L 05/11/18 15:45 Globulin 4.7 gm/dL 05/11/18 15:45 Albumin/Globulin Ratio 0.8 (1.0-1.8) L 05/11/18 15:45 Vitamin B12 1516 pg/mL (232-1245) H 05/12/18 07:10 Folic Acid >20.0 ng/mL (>3.0) 05/12/18 07:10 TSH 1.25 uIU/ml (0.34-5.60) 05/11/18 15:45 Urine Source CATH 05/11/18 16:50 Urine Color BROWN 05/11/18 16:50 Urine Clarity CLOUDY (CLEAR) H 05/11/18 16:50 Urine pH 7.0 (4.6 - 8.0) 05/11/18 16:50 Ur Specific [place] 1.010 (1.005-1.030) 05/11/18 16:50 Urine Protein 100 mg/dL (NEGATIVE) H 05/11/18 16:50 Urine Glucose (UA) NEGATIVE mg/dL (NEGATIVE) 05/11/18 16:50 Urine Ketones NEGATIVE mg/dL (NEGATIVE) 05/11/18 16:50 Urine Blood LARGE (NEGATIVE) H 05/11/18 16:50 Urine Nitrate NEGATIVE (NEGATIVE) 05/11/18 16:50 Urine Bilirubin SMALL (NEGATIVE) H 05/11/18 16:50 Urine Urobilinogen 0.2 E.U./dL (0.2 - 1.0) 05/11/18 16:50 Ur Leukocyte Esterase LARGE (NEGATIVE) H 05/11/18 16:50 Urine RBC 25-50 /hpf (0-5) H 05/11/18 16:50 Urine WBC 50-100 /hpf (0-5) H 05/11/18 16:50 Ur Epithelial Cells MODERATE /lpf (FEW) 05/11/18 16:50 Urine Bacteria 4+ /hpf (NONE SEEN) H 05/11/18 16:50 Amikacin Peak 27.9 ug/mL (20.0-30.0) 05/15/18 16:40 Amikacin Trough 6.4 ug/mL (1.0-8.0) 05/15/18 13:50 Urine Opiates Screen POSITIVE (NEGATIVE) H 05/11/18 16:50 Urine Methadone Screen NEGATIVE (NEGATIVE) 05/11/18 16:50 Ur Barbiturates Screen NEGATIVE (NEGATIVE) 05/11/18 16:50 Ur Tricyclics Screen NEGATIVE (NEGATIVE) 05/11/18 16:50 Levetiracetam 51.3 ug/mL (10.0-40.0) H 05/11/18 15:45 Ur Phencyclidine Scrn NEGATIVE (NEGATIVE) 05/11/18 16:50 Amphetamines Screen NEGATIVE (NEGATIVE) 05/11/18 16:50 U Methamphetamines Scrn NEGATIVE (NEGATIVE) 05/11/18 16:50 U Benzodiazepines Scrn NEGATIVE (NEGATIVE) 05/11/18 16:50 U Cocaine Metab Screen NEGATIVE (NEGATIVE) 05/11/18 16:50 U Cannabinoids Screen NEGATIVE (NEGATIVE) 05/11/18 16:50 Blood Type A POSITIVE 05/16/18 09:30 Rho(D) Type Cancelled 05/11/18 16:48 Antibody Screen NEGATIVE 05/16/18 09:30 Crossmatch See Detail 05/16/18 09:30 BBK History Checked Cancelled 05/11/18 16:48 - Physical Exam Vitals and I&O: Vital Signs Temp 97.3 F 05/16/18 12:00 Pulse 59 05/16/18 15:00 Resp 16 05/16/18 15:00 BP 131/61 05/16/18 15:00 Pulse Ox 100 05/16/18 15:00 Intake & Output 05/15/18 05/16/18 05/16/18 18:59 06:59 18:59 Intake Total 1152 2245.667 100 Output Total 1050 1355 Balance 102 890.667 100 Weight (lbs) 81.284 kg 81.647 kg Intake: Intake, IV Amount 202 510.667 100 Amikacin 500 mg In 102 Dextrose 5% 100 ml @ 200 mls/hr IV Q24HR [facility] Rx#: [id number] Piperacillin Sodium/ 100 200 100 Tazobact 2.25 gm In Sodium Chloride 0.9% 100 ml @ 100 mls/hr IV Q8HR [facility] Rx#:[id number] Sodium Chloride 0.9% 1, 310.667 000 ml @ 80 mls/hr IV . [id number] [facility] Rx#:[id number] Tube Feeding 650 1235 Other 300 500 Output: Urine 1050 1355 Other: # Bowel Movements 1 1 Stool Characteristics Soft Soft Soft Brown Brown Brown Black Black Black Green Green Green Weight Source Bedscale Bedscale Active Medications: Current Medications Acetaminophen (Tylenol 650mg/20.3ml Suspension) 650 mg GT Q6HR PRN PRN Reason: Mild Pain or Fever >101 Stop: 07/10/18 19:13 Last Admin: 05/11/18 21:39 Dose: 650 mg Acetaminophen/Hydrocodone Bitart (Brick 5mg/325mg) 1 tab GT Q6H PRN PRN Reason: Severe Pain Stop: 07/10/18 19:13 Acetylcysteine (Mucomyst 20%) 2 ml HHN Q6HRT [facility] Stop: 07/11/18 00:59 Last Admin: 05/16/18 14:03 Dose: 2 ml Albuterol Sulfate (Albuterol 2.5mg/3ml Neb Ud) 2.5 mg HHN Q2HRT PRN PRN Reason: Shortness of Breath or Wheeze Stop: 07/10/18 19:22 Albuterol/Ipratropium (Duoneb Neb) 3 ml HHN Q6HRT [facility] Stop: 07/11/18 00:59 Last Admin: 05/16/18 14:03 Dose: 3 ml Albuterol/Ipratropium (Duoneb Neb) 3 ml HHN Q2HRT PRN PRN Reason: Wheezing Stop: 07/10/18 19:13 Amlodipine Besylate (Norvasc) 5 mg GT DAILY [facility] Stop: 07/11/18 08:59 Last Admin: 05/16/18 08:36 Dose: 5 mg Benztropine Mesylate (Cogentin) 1 mg GT BID [facility] Stop: 07/11/18 08:59 Last Admin: 05/16/18 08:37 Dose: 1 mg Carbidopa/Levodopa (Sinemet 25mg-100 Mg) 1 tab GT DAILY [facility] Stop: 07/11/18 08:59 Last Admin: 05/16/18 08:37 Dose: 1 tab Chlorhexidine Gluconate (Peridex) 15 ml MM 08,1999 [facility] Stop: 07/10/18 19:59 Last Admin: 05/16/18 08:37 Dose: 15 ml Clonazepam (Klonopin) 0.5 mg GT BID [facility]; Protocol Stop: 07/11/18 08:59 Last Admin: 05/16/18 08:35 Dose: 0.5 mg Docusate Sodium (Colace) 250 mg PO BID [facility] Stop: 07/11/18 08:59 Last Admin: 05/16/18 08:35 Dose: 250 mg Ferrous Sulfate (Iron) 330 mg GT DAILY [facility] Stop: 07/11/18 08:59 Last Admin: 05/16/18 08:34 Dose: 330 mg Gemfibrozil (Lopid) 600 mg GT BID [facility] Stop: 07/11/18 08:59 Last Admin: 05/16/18 08:35 Dose: 600 mg Sodium Chloride (Nacl 0.9%) 1,000 mls @ 80 mls/hr IV .[id number] [facility] Stop: 07/10/18 19:29 Last Admin: 05/15/18 21:11 Dose: 80 mls/hr Piperacillin Sod/Tazobactam (Sod 2.25 gm/ Sodium Chloride) 100 mls @ 100 mls/ hr IV Q8HR [facility] Stop: 07/10/18 20:59 Last Infusion: 05/16/18 13:25 Dose: Infused Amikacin Sulfate 500 mg/ (Dextrose) 102 mls @ 200 mls/hr IV Q24HR [facility] Stop: 07/13/18 14:59 Last Admin: 05/16/18 15:39 Dose: 200 mls/hr Insulin Aspart (Novolog) 0 units SUBQ Q6H [facility]; Protocol Stop: 07/11/18 00:00 Last Admin: 05/16/18 12:25 Dose: 2 units Insulin Human Isoph/Insulin Regular (Novolin 70/30) 22 units SUBQ HS [facility]; Protocol Stop: 07/10/18 20:59 Last Admin: 05/15/18 21:09 Dose: 22 units Insulin Human Isoph/Insulin Regular (Novolin 70/30) 45 units SUBQ DAILY [facility]; Protocol Stop: 07/11/18 08:59 Last Admin: 05/16/18 09:05 Dose: Not Given Ipratropium Calvin (Atrovent Neb 0.5mg/2.5ml) 0.5 mg HHN Q2HRT PRN PRN Reason: Shortness of Breath or Wheeze Stop: 07/10/18 19:22 Lactobacillus Rhamnosus (Culturelle 15b) 1 each GT DAILY [facility] Stop: 07/11/18 08:59 Last Admin: 05/16/18 08:36 Dose: 1 each Lactulose (Cephulac) 20 gm GT PRN PRN PRN Reason: BOWEL MANAGEMENT Stop: 07/10/18 19:13 Levetiracetam (Keppra) 1,000 mg GT Q12HR [facility] Stop: 07/11/18 08:59 Last Admin: 05/16/18 08:35 Dose: 1,000 mg Levothyroxine Sodium (Synthroid) 0.1 mg GT QDAC [facility] Stop: 07/11/18 07:29 Last Admin: 05/16/18 06:33 Dose: 0.1 mg Lorazepam (Ativan) 1 mg IV Q4H PRN; Protocol PRN Reason: Seizure Stop: 07/10/18 19:22 Metoclopramide HCl (Reglan) 10 mg GT Q8HR [facility] Stop: 07/12/18 12:59 Last Admin: 05/16/18 12:25 Dose: 10 mg Miscellaneous (Calcium Alginate [Juan]) 1 each TP DAILY [facility] Stop: 07/11/18 08:59 Miscellaneous (Collagenase Clostridium Hist. [Santyl]) 1 appl TP DAILY [facility] Stop: 07/11/18 08:59 Miscellaneous (Petrolatum,White/Lanolin [Vitamin A And D Ointment]) 113 gm TP DAILY [facility] Stop: 07/11/18 08:59 Miscellaneous (Amikacin Iv Per Pharmacy) 1 ea MC PRN PRN PRN Reason: PROTOCOL Stop: 07/12/18 15:36 Ondansetron HCl (Zofran) 4 mg IV Q8H PRN PRN Reason: Nausea / Vomiting Stop: 07/10/18 19:23 Pantoprazole Sodium (Protonix) 40 mg IVP BID [facility] Stop: 07/11/18 08:59 Last Admin: 05/16/18 08:35 Dose: 40 mg Simvastatin (Zocor) 20 mg PO HS [facility]; Protocol Stop: 07/10/18 20:59 Last Admin: 05/15/18 21:10 Dose: 20 mg Sucralfate (Carafate) 1 gm GT QID [facility] Stop: 07/10/18 20:59 Last Admin: 05/16/18 12:24 Dose: 1 gm Zinc Sulfate (Zinc Sulfate) 220 mg GT DAILY [facility] Stop: 07/11/18 08:59 Last Admin: 05/16/18 08:36 Dose: 220 mg - Procedures Procedures: Procedures Procedure Code Date AIRWAYS SURGICAL PROCEDURE 79316 03/03/16 BLOOD TRANSFUSION SERVICE 81549 09/27/17 CHANGE FEEDING DEVICE IN UP INTEST TRACT, MANAGEMENT CONSULTANT APPROACH [id number] 12/10/16 CHANGE GASTROSTOMY TUBE 20089 06/06/13 CONTINUOUS INVASIVE MECHANICAL VENTILATION <96 CONSEC HRS 96.71 02/02/13 CONTINUOUS INVASIVE MECHANICAL VENTILATION =/>96 CONSEC HRS 96.72 06/06/13 [place] [address] 03/03/16 IMMUNIZATION ADMIN 22204 03/03/16 INFLUENZA VACCINATION 99.52 02/02/13 INSERT NON-TUNNEL CV CATH 46912 03/03/16 INSERTION OF INFUSION DEV INTO SUP VENA CAVA, PERC APPROACH 84IV71M 03/03/16 INSJ PICC 5 YR+ W/O IMAGING 27701 02/02/13 INTRODUCTION OF SERUM/TOX/VACCINE INTO MUSCLE, PERC APPROACH [id number] 03/03/16 OTHER GASTROSTOMY 43.19 06/03/10 REPLACE GASTROSTOMY TUBE 97.02 06/06/13 RESPIRATORY VENTILATION, GREATER THAN 96 CONSECUTIVE HOURS [id number] 05/11/18 TRANSFUSE NONAUT RED BLOOD CELLS IN PERIPH VEIN, PERC 04416C1 09/27/17 VACCINATION NEC 99.55 02/02/13 VENOUS CATHETERIZATION NEC 38.93 02/02/13 VENT MGMT INPAT INIT DAY 03/03/16 VENT MGMT INPAT SUBQ DAY 03/03/16 Nutritional Asmnt/Malnutr-PDOC - Dietary Evaluation Malnutrition Findings (Please click <Entered> for more info): Nutritional Asmnt/Malnutrition Start: 05/12/18 14: 39 Text: Status: Complete Freq: Protocol: Document 05/12/18 14:39 RHAQUE (Rec: 05/12/18 14:59 RHAQUE [id number]) Nutritional Asmnt/Malnutrition Patient General Information Nutritional Screening High Risk Consult Diagnosis UTI, GI bleed Pertinent Medical Hx/Surgical Hx Ventilator dependent Resp failure, Parkinson's, Seizure, Dementia, 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 Pt is trached to a ventilator. Current TF provides 1300ml/day volume, 1560 kcal/day, 78g Protein/ day. 1047 ml water total. Current Diet Order/ Nutrition Support Tube feeding Glucerna 1.2 65ml /hr x 20hrs Patient / S.O Not Indicated Pertinent Medications Docusate, Gemfibrozil, Insulin Aspart, Insulin Novolin, Lactulose, Synthroid, Metoclopramide, Ondansetron, Simvastatin Pertinent Labs (05/12) BUN 65, Na+ 135, Gluc 214, POC Gluc 241 Nutritional Hx/Data Height 1.63 m Height (Calculated Centimeters) 162.6 Current Weight (lbs) 78.018 kg Weight (Calculated Kilograms) 78.0 Weight (Calculated Grams) 80267.9 Carlock Body Weight 120 % Carlock Body Weight 135 Body Mass Index (BMI) 29.5 GI Symptoms Last BM No Noted B.M. Cultural/Ethnic/Zoroastrian Belief None indicated Skin Integrity/Comment: Germán Score 12. On Nursing flowsheet, pressure ulcer on coccyx noted. No wound care note. Unknown stage. Current %PO Negligible < 25% Estimated Nutritional Goals BEE in Kcals: Adj wt of IBW Calories/Kcals/Kg 25-30 Kcals Calculated 7268-3026 Protein: Adj wt of IBW Protein g/k.2-1.5 Protein Calculated 72-90 Fluid: ml 9226-4929 Nutritional Problem 1. Problem Problem Altered Nutritional related Lab values Etiology Uncontrolled hyperglycemia aeb Signs/Symptoms: (05/12) Gluc 214, POC Gluc 241 Malnutrition Alert Is there a minimum of two criteria No selected? Query Text:Check all the applicable criteria. A minimum of two criteria are recommended for diagnosis of either severe or non-severe malnutrition. Malnutrition Related to Morbid Obesity Malnutrition related to morbid obesity No Intervention/Recommendation Comments Continue Tube feeding as ordered. Pt already on DM tube feeding formula. MD to modify insulin regimen as needed for optimal glycemic control. Will modify nutrient needs based on wound care notes. Expected Outcomes/Goals Expected Outcomes/Goals 1. Labs WNL 2. Tube feeding continue to be tolerated 3. F/U in 2-3 days as HR (05/14 -)
--- NOTE | 2018-05-16 23:42 | Progress Notes ---
DATE: UROLOGY PROGRESS NOTE SUBJECTIVE: The patient continues to have gross hematuria with bright red blood and not much gear changer the last 24-48 hours in spite of frequent irrigations. Hemoglobin did not drop substantially, but very little. She will require a blood transfusion today. She is maintaining her pressure, but the bleeding is not coming under control. PHYSICAL EXAMINATION: VITAL SIGNS: Last temperature recorded is 98.1, heart rate 64, and blood pressure 144/73. ABDOMEN: Obese but soft, nondistended and nontender. Morfin catheter bright red colored urine. Last irrigation, the nurse has got a few small clots only. LABORATORY DATA: Hemoglobin 7.0 and white count also 7.0. There is no significant left shift. Chloride 111, CO2 20, BUN 29, creatinine 1.0, sodium 140, and potassium 4.3. The culture is growing Klebsiella, which is resistant to almost all antibiotics and Proteus, which is resistant to many antibiotics. She is on amikacin and piperacillin. IMPRESSION: 1. Ongoing gross hematuria, probably hemorrhagic cystitis; however, after adequate conservative trial, I think a cystoscopy might be helpful. Therefore, we will recommend it and do it if family consents especially since she is on a DNR status. The upper tracts are unremarkable on the renal ultrasound as we know. 2. Diabetes, fair control. 3. Ventilator and G tube dependency, doing well with ventilator settings stable and tolerating G-tube feeds quite well. 4. Hypertension, periodic uncontrolled, but mostly manageable. 5. The ultrasound did show left hydronephrosis, which seems to be secondary to chronic retention and is not really the source of the bleeding. JOB# [id number]
[2018-05-17] MEDS: Albuterol/Ipratropium Neb 3 ML AERS HHN SCH ×4 (01:21→19:08)
[2018-05-17] MEDS: Piperacillin Sodium/Tazobact 2.25 GM in Sodium Chloride 0.9% 100 ML IV SCH ×3 (05:10→20:41)
[2018-05-17 05:34] LABS: % BASOPHILS 0.4 % (0.0-2.0); % EOSINOPHILS 4.7 % (0.0-5.0); % LYMPHOCYTES 13.3 % (20.0-50.0); % MONOCYTES 6.8 % (2.0-10.0); % NEUTROPHILS 74.8 % (40.0-80.0); EOSINOPHILE ABSOLUTE 0.4 Th/cmm (0.1-0.4); HEMATOCRIT 26.2 % (41.0-60); HEMOGLOBIN 8.5 gm/dL (12-16); LYMPHOCYTE ABSOLUTE 1.1 Th/cmm (1.5-3.0); MEAN CELL VOLUME 83.9 fl (81-100); MEAN CORPUSCULAR HEMOGLOBIN 27.4 pg (27.0-31.0); MEAN CORPUSCULAR HGB CONC 32.6 pg (28.0-36.0); MEAN PLATELET VOLUME 7.8 fl; MONOCYTE ABSOLUTE 0.5 Th/cmm (0.3-1.0); PLATELET COUNT 311 Th/cmm (150-400); RED BLOOD COUNT 3.12 Mil/cmm (3.80-5.20); RED CELL DISTRIBUTION WIDTH 15.9 % (11.5-20.0)
[2018-05-17] MEDS: INSULIN ASPART, RECOMBINANT 100 UNITS/ML SUBQ SCH ×4 (05:34→17:48)
[2018-05-17 05:40] LABS: INR 1.04 (0.5-1.4); PROTHROMBIN TIME (TEST) 10.8 SECONDS (9.5-11.5)
[2018-05-17 05:41] LABS: ANION GAP 13.7 (7.0-16.0); BUN - UREA NITROGEN 22 mg/dL (7-25); CALCIUM SERUM 8.4 mg/dL (8.6-10.3); CARBON DIOXIDE 19.7 mEq/L (21.0-31.0); CHLORIDE 112 mEq/L (98-107); CREATININE - SERUM 0.8 mg/dL (0.6-1.2); GLUCOSE 165 mg/dL (70-105); POTASSIUM SERUM 4.4 mEq/L (3.5-5.1); SODIUM SERUM 141 mEq/L (136-145)
[2018-05-17] MEDS: Chlorhexidine Gluconate 0.12% 15mL Mouthwash MM SCH ×2 (08:00→20:43)
[2018-05-17] MEDS: INSULIN 70/30 100 UNITS/ML SUBQ SCH ×2 (09:00→20:45)
[2018-05-17] MEDS: Levothyroxine 0.1 Mg Tab GT SCH (10:34)
[2018-05-17] MEDS: Ferrous Sulfate 300 MG/5 ML UDC GT SCH (10:41)
[2018-05-17] MEDS: Benztropine 1 MG TAB GT SCH ×2 (10:41→17:48)
[2018-05-17] MEDS: Multivitamin w/ Minerals Tab GT SCH (10:42)
[2018-05-17] MEDS: Levetiracetam 500 mg/5mL 5mL UDSyr *for ORAL USE ONLY GT SCH ×2 (10:42→20:42)
[2018-05-17] MEDS: Lactobacillus Rhamnosus GG 15 Billion CFU CAP.SPRINK GT SCH (10:42)
[2018-05-17] MEDS ORDERED: Lidocaine 2% Gel 5 mL TP ONE (12:00)
[2018-05-17] MEDS ORDERED: Propofol **SURGERY USE ONLY** 20 ML IV ONE (12:12)
--- NOTE | 2018-05-17 13:03 | GI Progress Note ---
Subjective - Review of Systems Subjective: NO GI BLEEDING PER STAFF PT HAS HEMATURIA S/P CYSTOSCOPY Objective - Results Result Diagrams: 05/17/18 04:35 05/17/18 04:35 Recent Labs: Laboratory Last Values WBC 8.0 Th/cmm (4.8-10.8) 05/17/18 04:35 RBC 3.12 Mil/cmm (3.80-5.20) L 05/17/18 04:35 Hgb 8.5 gm/dL (12-16) L 05/17/18 04:35 Hct 26.2 % (41.0-60) L 05/17/18 04:35 MCV 83.9 fl (81-100) 05/17/18 04:35 MCH 27.4 pg (27.0-31.0) 05/17/18 04:35 MCHC Differential 32.6 pg (28.0-36.0) 05/17/18 04:35 RDW 15.9 % (11.5-20.0) 05/17/18 04:35 Plt Count 311 Th/cmm (150-400) 05/17/18 04:35 MPV 7.8 fl 05/17/18 04:35 Add Manual Diff YES 05/15/18 04:20 Neutrophils % 74.8 % (40.0-80.0) 05/17/18 04:35 Band Neutrophils % 0 % (0-10) 05/15/18 04:20 Lymphocytes % 13.3 % (20.0-50.0) L 05/17/18 04:35 Monocytes % 6.8 % (2.0-10.0) 05/17/18 04:35 Eosinophils % 4.7 % (0.0-5.0) 05/17/18 04:35 Basophils % 0.4 % (0.0-2.0) 05/17/18 04:35 Neutrophils (Manual) 80 % (40-80) 05/15/18 04:20 Lymphocytes 14 % (20-50) L 05/15/18 04:20 Monocytes 6 % (2-10) 05/15/18 04:20 Eosinophils 2 % (0-5) 05/12/18 07:10 Basophils 0 % (0-3) 05/12/18 07:10 PT 10.8 SECONDS (9.5-11.5) 05/17/18 04:35 INR 1.04 (0.5-1.4) 05/17/18 04:35 PTT (Actin FS) 26.2 SECONDS (26.0-38.0) 05/17/18 04:35 Sodium 141 mEq/L (136-145) 05/17/18 04:35 Potassium 4.4 mEq/L (3.5-5.1) 05/17/18 04:35 Chloride 112 mEq/L (98-107) H 05/17/18 04:35 Carbon Dioxide 19.7 mEq/L (21.0-31.0) L 05/17/18 04:35 Anion Gap 13.7 (7.0-16.0) 05/17/18 04:35 BUN 22 mg/dL (7-25) 05/17/18 04:35 Creatinine 0.8 mg/dL (0.6-1.2) 05/17/18 04:35 Est GFR ( Amer) TNP 05/17/18 04:35 Est GFR (Non-Af Amer) TNP 05/17/18 04:35 BUN/Creatinine Ratio 27.5 05/17/18 04:35 Glucose 165 mg/dL (70-105) H 05/17/18 04:35 POC Glucose 141 MG/DL (70 - 105) H 05/17/18 10:46 Whole Bld Lactic Acid 1.45 mmol/L (0.60-1.99) 05/11/18 15:45 Calcium 8.4 mg/dL (8.6-10.3) L 05/17/18 04:35 Phosphorus 3.9 mg/dL (2.5-5.0) 05/11/18 15:45 Magnesium 2.7 mg/dL (1.9-2.7) 05/11/18 15:45 Iron 49 ug/dL (27-139) 05/12/18 07:10 TIBC 264 ug/dL (250-450) 05/12/18 07:10 Iron Saturation 19 % (15-55) 05/12/18 07:10 Unsaturated IBC 215 ug/dL (118-369) 05/12/18 07:10 Total Bilirubin 0.3 mg/dL (0.3-1.0) 05/11/18 15:45 AST 13 U/L (13-39) 05/11/18 15:45 ALT 10 U/L (7-52) 05/11/18 15:45 Alkaline Phosphatase 81 U/L (34-104) 05/11/18 15:45 Ammonia 59 umol/L (16-53) H 05/13/18 04:10 B-Natriuretic Peptide 84.7 pg/mL (5.0-100.0) 05/14/18 04:35 Total Protein 8.3 gm/dL (6.0-8.3) 05/11/18 15:45 Albumin 3.6 gm/dL (3.7-5.3) L 05/11/18 15:45 Globulin 4.7 gm/dL 05/11/18 15:45 Albumin/Globulin Ratio 0.8 (1.0-1.8) L 05/11/18 15:45 Vitamin B12 1516 pg/mL (232-1245) H 05/12/18 07:10 Folic Acid >20.0 ng/mL (>3.0) 05/12/18 07:10 TSH 1.25 uIU/ml (0.34-5.60) 05/11/18 15:45 Urine Source CATH 05/11/18 16:50 Urine Color BROWN 05/11/18 16:50 Urine Clarity CLOUDY (CLEAR) H 05/11/18 16:50 Urine pH 7.0 (4.6 - 8.0) 05/11/18 16:50 Ur Specific Hamilton 1.010 (1.005-1.030) 05/11/18 16:50 Urine Protein 100 mg/dL (NEGATIVE) H 05/11/18 16:50 Urine Glucose (UA) NEGATIVE mg/dL (NEGATIVE) 05/11/18 16:50 Urine Ketones NEGATIVE mg/dL (NEGATIVE) 05/11/18 16:50 Urine Blood LARGE (NEGATIVE) H 05/11/18 16:50 Urine Nitrate NEGATIVE (NEGATIVE) 05/11/18 16:50 Urine Bilirubin SMALL (NEGATIVE) H 05/11/18 16:50 Urine Urobilinogen 0.2 E.U./dL (0.2 - 1.0) 05/11/18 16:50 Ur Leukocyte Esterase LARGE (NEGATIVE) H 05/11/18 16:50 Urine RBC 25-50 /hpf (0-5) H 05/11/18 16:50 Urine WBC 50-100 /hpf (0-5) H 05/11/18 16:50 Ur Epithelial Cells MODERATE /lpf (FEW) 05/11/18 16:50 Urine Bacteria 4+ /hpf (NONE SEEN) H 05/11/18 16:50 Amikacin Peak 27.9 ug/mL (20.0-30.0) 05/15/18 16:40 Amikacin Trough 6.4 ug/mL (1.0-8.0) 05/15/18 13:50 Urine Opiates Screen POSITIVE (NEGATIVE) H 05/11/18 16:50 Urine Methadone Screen NEGATIVE (NEGATIVE) 05/11/18 16:50 Ur Barbiturates Screen NEGATIVE (NEGATIVE) 05/11/18 16:50 Ur Tricyclics Screen NEGATIVE (NEGATIVE) 05/11/18 16:50 Levetiracetam 51.3 ug/mL (10.0-40.0) H 05/11/18 15:45 Ur Phencyclidine Scrn NEGATIVE (NEGATIVE) 05/11/18 16:50 Amphetamines Screen NEGATIVE (NEGATIVE) 05/11/18 16:50 U Methamphetamines Scrn NEGATIVE (NEGATIVE) 05/11/18 16:50 U Benzodiazepines Scrn NEGATIVE (NEGATIVE) 05/11/18 16:50 U Cocaine Metab Screen NEGATIVE (NEGATIVE) 05/11/18 16:50 U Cannabinoids Screen NEGATIVE (NEGATIVE) 05/11/18 16:50 Blood Type A POSITIVE 05/16/18 09:30 Rho(D) Type Cancelled 05/11/18 16:48 Antibody Screen NEGATIVE 05/16/18 09:30 Crossmatch See Detail 05/16/18 09:30 BBK History Checked Cancelled 05/11/18 16:48 - Physical Exam Vitals and I&O: Vital Signs Temp 97.9 F 05/17/18 06:00 Pulse 57 05/17/18 10:35 Resp 16 05/17/18 07:00 BP 153/69 05/17/18 10:35 Pulse Ox 100 05/17/18 07:00 Intake & Output 05/16/18 05/17/18 05/17/18 18:59 06:59 18:59 Intake Total 202 1430 Output Total 1600 Balance 202 -170 Weight (lbs) 83.143 kg Intake: Intake, IV Amount 202 200 Amikacin 500 mg In 102 Dextrose 5% 100 ml @ 200 mls/hr IV Q24HR [facility] Rx#: [id number] Piperacillin Sodium/ 100 200 Tazobact 2.25 gm In Sodium Chloride 0.9% 100 ml @ 100 mls/hr IV Q8HR [facility] Rx#:[id number] Tube Feeding 780 Other 450 Output: Urine 1600 Other: # Bowel Movements 1 Stool Characteristics Soft Soft Brown Brown Black Black Green Green Weight Source Bedscale Active Medications: Current Medications Acetaminophen (Tylenol 650mg/20.3ml Suspension) 650 mg GT Q6HR PRN PRN Reason: Mild Pain or Fever >101 Stop: 07/10/18 19:13 Last Admin: 05/11/18 21:39 Dose: 650 mg Acetaminophen/Hydrocodone Bitart (Benld 5mg/325mg) 1 tab GT Q6H PRN PRN Reason: Severe Pain Stop: 07/10/18 19:13 Acetylcysteine (Mucomyst 20%) 2 ml HHN Q6HRT [facility] Stop: 07/11/18 00:59 Last Admin: 05/17/18 06:58 Dose: 2 ml Albuterol Sulfate (Albuterol 2.5mg/3ml Neb Ud) 2.5 mg HHN Q2HRT PRN PRN Reason: Shortness of Breath or Wheeze Stop: 07/10/18 19:22 Albuterol/Ipratropium (Duoneb Neb) 3 ml HHN Q6HRT [facility] Stop: 07/11/18 00:59 Last Admin: 05/17/18 06:58 Dose: 3 ml Albuterol/Ipratropium (Duoneb Neb) 3 ml HHN Q2HRT PRN PRN Reason: Wheezing Stop: 07/10/18 19:13 Amlodipine Besylate (Norvasc) 5 mg GT DAILY [facility] Stop: 07/11/18 08:59 Last Admin: 05/17/18 10:35 Dose: Not Given Benztropine Mesylate (Cogentin) 1 mg GT BID [facility] Stop: 07/11/18 08:59 Last Admin: 05/17/18 10:41 Dose: Not Given Carbidopa/Levodopa (Sinemet 25mg-100 Mg) 1 tab GT DAILY [facility] Stop: 07/11/18 08:59 Last Admin: 05/17/18 10:41 Dose: Not Given Chlorhexidine Gluconate (Peridex) 15 ml MM 08,1999 [facility] Stop: 07/10/18 19:59 Last Admin: 05/17/18 08:00 Dose: 15 ml Clonazepam (Klonopin) 0.5 mg GT BID [facility]; Protocol Stop: 07/11/18 08:59 Last Admin: 05/17/18 10:41 Dose: Not Given Docusate Sodium (Colace) 250 mg PO BID [facility] Stop: 07/11/18 08:59 Last Admin: 05/17/18 10:41 Dose: Not Given Ferrous Sulfate (Iron) 330 mg GT DAILY [facility] Stop: 07/11/18 08:59 Last Admin: 05/17/18 10:41 Dose: Not Given Gemfibrozil (Lopid) 600 mg GT BID [facility] Stop: 07/11/18 08:59 Last Admin: 05/17/18 10:42 Dose: Not Given Sodium Chloride (Nacl 0.9%) 1,000 mls @ 80 mls/hr IV .[id number] [facility] Stop: 07/10/18 19:29 Last Admin: 05/15/18 21:11 Dose: 80 mls/hr Piperacillin Sod/Tazobactam (Sod 2.25 gm/ Sodium Chloride) 100 mls @ 100 mls/ hr IV Q8HR [facility] Stop: 07/10/18 20:59 Last Infusion: 05/17/18 06:15 Dose: Infused Amikacin Sulfate 500 mg/ (Dextrose) 102 mls @ 200 mls/hr IV Q24HR [facility] Stop: 07/13/18 14:59 Last Infusion: 05/16/18 16:15 Dose: Infused Insulin Aspart (Novolog) 0 units SUBQ Q6H [facility]; Protocol Stop: 07/11/18 00:00 Last Admin: 05/17/18 05:34 Dose: Not Given Insulin Human Isoph/Insulin Regular (Novolin 70/30) 22 units SUBQ HS [facility]; Protocol Stop: 07/10/18 20:59 Last Admin: 05/16/18 21:08 Dose: 22 units Insulin Human Isoph/Insulin Regular (Novolin 70/30) 45 units SUBQ DAILY [facility]; Protocol Stop: 07/11/18 08:59 Last Admin: 05/17/18 09:00 Dose: Not Given Ipratropium Baker (Atrovent Neb 0.5mg/2.5ml) 0.5 mg HHN Q2HRT PRN PRN Reason: Shortness of Breath or Wheeze Stop: 07/10/18 19:22 Lactobacillus Rhamnosus (Culturelle 15b) 1 each GT DAILY [facility] Stop: 07/11/18 08:59 Last Admin: 05/17/18 10:42 Dose: Not Given Lactulose (Cephulac) 20 gm GT PRN PRN PRN Reason: BOWEL MANAGEMENT Stop: 07/10/18 19:13 Levetiracetam (Keppra) 1,000 mg GT Q12HR [facility] Stop: 07/11/18 08:59 Last Admin: 05/17/18 10:42 Dose: Not Given Levothyroxine Sodium (Synthroid) 0.1 mg GT QDAC [facility] Stop: 07/11/18 07:29 Last Admin: 05/17/18 10:34 Dose: Not Given Lorazepam (Ativan) 1 mg IV Q4H PRN; Protocol PRN Reason: Seizure Stop: 07/10/18 19:22 Metoclopramide HCl (Reglan) 10 mg GT Q8HR [facility] Stop: 07/12/18 12:59 Last Admin: 05/17/18 05:11 Dose: 10 mg Miscellaneous (Amikacin Iv Per Pharmacy) 1 ea MC PRN PRN PRN Reason: PROTOCOL Stop: 07/12/18 15:36 Ondansetron HCl (Zofran) 4 mg IV Q8H PRN PRN Reason: Nausea / Vomiting Stop: 07/10/18 19:23 Pantoprazole Sodium (Protonix) 40 mg IVP BID [facility] Stop: 07/11/18 08:59 Last Admin: 05/17/18 10:42 Dose: Not Given Petrolatum (Vaseline Oint) 1 appl TP BID [facility] Stop: 07/16/18 16:59 Simvastatin (Zocor) 20 mg PO HS [facility]; Protocol Stop: 07/10/18 20:59 Last Admin: 05/16/18 21:07 Dose: 20 mg Sucralfate (Carafate) 1 gm GT QID [facility] Stop: 07/10/18 20:59 Last Admin: 05/17/18 10:42 Dose: Not Given Zinc Sulfate (Zinc Sulfate) 220 mg GT DAILY [facility] Stop: 07/11/18 08:59 Last Admin: 05/17/18 10:42 Dose: Not Given General: No acute distress Neck: Supple Cardiovascular: Regular rate Lungs: Normal air movement Abdomen: Bowel sounds, Soft, Other (INTACT GT), no Tender - Procedures Procedures: Procedures Procedure Code Date AIRWAYS SURGICAL PROCEDURE 66907 03/03/16 BLOOD TRANSFUSION SERVICE 06057 09/27/17 CHANGE FEEDING DEVICE IN UP INTEST TRACT, SPANISH INTERPRETER/TRANSLATOR APPROACH [id number] 12/10/16 CHANGE GASTROSTOMY TUBE 20605 06/06/13 CONTINUOUS INVASIVE MECHANICAL VENTILATION <96 CONSEC HRS 96.71 02/02/13 CONTINUOUS INVASIVE MECHANICAL VENTILATION =/>96 CONSEC HRS 96.72 06/06/13 [place] [address] 03/03/16 IMMUNIZATION ADMIN 05248 03/03/16 INFLUENZA VACCINATION 99.52 02/02/13 INSERT NON-TUNNEL CV CATH 24118 03/03/16 INSERTION OF INFUSION DEV INTO SUP VENA CAVA, PERC APPROACH [id number] 03/03/16 INSJ PICC 5 YR+ W/O IMAGING 68837 02/02/13 INTRODUCTION OF SERUM/TOX/VACCINE INTO MUSCLE, PERC APPROACH [id number] 03/03/16 OTHER GASTROSTOMY 43.19 06/03/10 REPLACE GASTROSTOMY TUBE 97.02 06/06/13 RESPIRATORY VENTILATION, GREATER THAN 96 CONSECUTIVE HOURS [id number] 05/11/18 TRANSFUSE NONAUT RED BLOOD CELLS IN PERIPH VEIN, PERC [id number] 09/27/17 VACCINATION NEC 99.55 02/02/13 VENOUS CATHETERIZATION NEC 38.93 02/02/13 VENT MGMT INPAT INIT DAY 03664 03/03/16 VENT MGMT INPAT SUBQ DAY 76003 03/03/16 Assessment/Plan - Assessment Assessment: IMPRESSION: 1. ANEMIA, SEVERE, S/P TRANSFUSION. MULTIFACTORIAL, BUT MORE LIKELY DUE TO HEMATURIA THAN GI BLOOD LOSS. SCANT BLOOD ASPIRATED VIA GT IS LIKELY TRAUMATIC DUE TO UNDERLYING GASTRITIS. ALSO HAS ANEMIA OF CHRONIC DISEASE, ETC. 2. HEMATURIA. 3. DYSPHAGIA, S/P GT (NO BLOOD UPON RESIDUAL CHECK). RECS: 1. MONITOR HGB; TRANSFUSE PRN. 2. GT FEEDS SABRA. 3. PROTONIX. 4. REGLAN. 5. HEMATURIA WORKUP AND TREATMENT PER UROLOGY. 6. DEFER ENDOSCOPIC WORKUP FOR NOW UNLESS OVERT GI BLEEDING. 7. WILL SEE NEEDED; CALL IF QUESTIONS
[2018-05-17] MEDS: Sodium Chloride 0.9% 1,000 ML IV SCH (14:50)
[2018-05-17] MEDS: Amikacin 500 mg in D5W 100mL (Q24HR) IV SCH (15:00)
--- NOTE | 2018-05-17 15:17 | Internal Medicine Prog Note ---
Internal Medicine Subjective - Subjective Patient seen and examined:: with staff, chart reviewed Patient is:: asleep, non-verbal, non-interactive, eyes closed, in bed, congested Patient Complaints of:: congestion Per staff patient has:: no adverse event, no episodes of fall, tolerating meds Internal Medicine Objective - Results Result Diagrams: 05/17/18 04:35 05/17/18 04:35 Recent Labs: Laboratory Last Values WBC 8.0 Th/cmm (4.8-10.8) 05/17/18 04:35 RBC 3.12 Mil/cmm (3.80-5.20) L 05/17/18 04:35 Hgb 8.5 gm/dL (12-16) L 05/17/18 04:35 Hct 26.2 % (41.0-60) L 05/17/18 04:35 MCV 83.9 fl (81-100) 05/17/18 04:35 MCH 27.4 pg (27.0-31.0) 05/17/18 04:35 MCHC Differential 32.6 pg (28.0-36.0) 05/17/18 04:35 RDW 15.9 % (11.5-20.0) 05/17/18 04:35 Plt Count 311 Th/cmm (150-400) 05/17/18 04:35 MPV 7.8 fl 05/17/18 04:35 Add Manual Diff YES 05/15/18 04:20 Neutrophils % 74.8 % (40.0-80.0) 05/17/18 04:35 Band Neutrophils % 0 % (0-10) 05/15/18 04:20 Lymphocytes % 13.3 % (20.0-50.0) L 05/17/18 04:35 Monocytes % 6.8 % (2.0-10.0) 05/17/18 04:35 Eosinophils % 4.7 % (0.0-5.0) 05/17/18 04:35 Basophils % 0.4 % (0.0-2.0) 05/17/18 04:35 Neutrophils (Manual) 80 % (40-80) 05/15/18 04:20 Lymphocytes 14 % (20-50) L 05/15/18 04:20 Monocytes 6 % (2-10) 05/15/18 04:20 Eosinophils 2 % (0-5) 05/12/18 07:10 Basophils 0 % (0-3) 05/12/18 07:10 PT 10.8 SECONDS (9.5-11.5) 05/17/18 04:35 INR 1.04 (0.5-1.4) 05/17/18 04:35 PTT (Actin FS) 26.2 SECONDS (26.0-38.0) 05/17/18 04:35 Sodium 141 mEq/L (136-145) 05/17/18 04:35 Potassium 4.4 mEq/L (3.5-5.1) 05/17/18 04:35 Chloride 112 mEq/L (98-107) H 05/17/18 04:35 Carbon Dioxide 19.7 mEq/L (21.0-31.0) L 05/17/18 04:35 Anion Gap 13.7 (7.0-16.0) 05/17/18 04:35 BUN 22 mg/dL (7-25) 05/17/18 04:35 Creatinine 0.8 mg/dL (0.6-1.2) 05/17/18 04:35 Est GFR ( Amer) TNP 05/17/18 04:35 Est GFR (Non-Af Amer) TNP 05/17/18 04:35 BUN/Creatinine Ratio 27.5 05/17/18 04:35 Glucose 165 mg/dL (70-105) H 05/17/18 04:35 POC Glucose 141 MG/DL (70 - 105) H 05/17/18 10:46 Whole Bld Lactic Acid 1.45 mmol/L (0.60-1.99) 05/11/18 15:45 Calcium 8.4 mg/dL (8.6-10.3) L 05/17/18 04:35 Phosphorus 3.9 mg/dL (2.5-5.0) 05/11/18 15:45 Magnesium 2.7 mg/dL (1.9-2.7) 05/11/18 15:45 Iron 49 ug/dL (27-139) 05/12/18 07:10 TIBC 264 ug/dL (250-450) 05/12/18 07:10 Iron Saturation 19 % (15-55) 05/12/18 07:10 Unsaturated IBC 215 ug/dL (118-369) 05/12/18 07:10 Total Bilirubin 0.3 mg/dL (0.3-1.0) 05/11/18 15:45 AST 13 U/L (13-39) 05/11/18 15:45 ALT 10 U/L (7-52) 05/11/18 15:45 Alkaline Phosphatase 81 U/L (34-104) 05/11/18 15:45 Ammonia 59 umol/L (16-53) H 05/13/18 04:10 B-Natriuretic Peptide 84.7 pg/mL (5.0-100.0) 05/14/18 04:35 Total Protein 8.3 gm/dL (6.0-8.3) 05/11/18 15:45 Albumin 3.6 gm/dL (3.7-5.3) L 05/11/18 15:45 Globulin 4.7 gm/dL 05/11/18 15:45 Albumin/Globulin Ratio 0.8 (1.0-1.8) L 05/11/18 15:45 Vitamin B12 1516 pg/mL (232-1245) H 05/12/18 07:10 Folic Acid >20.0 ng/mL (>3.0) 05/12/18 07:10 TSH 1.25 uIU/ml (0.34-5.60) 05/11/18 15:45 Urine Source CATH 05/11/18 16:50 Urine Color BROWN 05/11/18 16:50 Urine Clarity CLOUDY (CLEAR) H 05/11/18 16:50 Urine pH 7.0 (4.6 - 8.0) 05/11/18 16:50 Ur Specific [place] 1.010 (1.005-1.030) 05/11/18 16:50 Urine Protein 100 mg/dL (NEGATIVE) H 05/11/18 16:50 Urine Glucose (UA) NEGATIVE mg/dL (NEGATIVE) 05/11/18 16:50 Urine Ketones NEGATIVE mg/dL (NEGATIVE) 05/11/18 16:50 Urine Blood LARGE (NEGATIVE) H 05/11/18 16:50 Urine Nitrate NEGATIVE (NEGATIVE) 05/11/18 16:50 Urine Bilirubin SMALL (NEGATIVE) H 05/11/18 16:50 Urine Urobilinogen 0.2 E.U./dL (0.2 - 1.0) 05/11/18 16:50 Ur Leukocyte Esterase LARGE (NEGATIVE) H 05/11/18 16:50 Urine RBC 25-50 /hpf (0-5) H 05/11/18 16:50 Urine WBC 50-100 /hpf (0-5) H 05/11/18 16:50 Ur Epithelial Cells MODERATE /lpf (FEW) 05/11/18 16:50 Urine Bacteria 4+ /hpf (NONE SEEN) H 05/11/18 16:50 Amikacin Peak 27.9 ug/mL (20.0-30.0) 05/15/18 16:40 Amikacin Trough 6.4 ug/mL (1.0-8.0) 05/15/18 13:50 Urine Opiates Screen POSITIVE (NEGATIVE) H 05/11/18 16:50 Urine Methadone Screen NEGATIVE (NEGATIVE) 05/11/18 16:50 Ur Barbiturates Screen NEGATIVE (NEGATIVE) 05/11/18 16:50 Ur Tricyclics Screen NEGATIVE (NEGATIVE) 05/11/18 16:50 Levetiracetam 51.3 ug/mL (10.0-40.0) H 05/11/18 15:45 Ur Phencyclidine Scrn NEGATIVE (NEGATIVE) 05/11/18 16:50 Amphetamines Screen NEGATIVE (NEGATIVE) 05/11/18 16:50 U Methamphetamines Scrn NEGATIVE (NEGATIVE) 05/11/18 16:50 U Benzodiazepines Scrn NEGATIVE (NEGATIVE) 05/11/18 16:50 U Cocaine Metab Screen NEGATIVE (NEGATIVE) 05/11/18 16:50 U Cannabinoids Screen NEGATIVE (NEGATIVE) 05/11/18 16:50 Blood Type A POSITIVE 05/16/18 09:30 Rho(D) Type Cancelled 05/11/18 16:48 Antibody Screen NEGATIVE 05/16/18 09:30 Crossmatch See Detail 05/16/18 09:30 BBK History Checked Cancelled 05/11/18 16:48 - Physical Exam Vitals and I&O: Vital Signs Temp 97.9 F 05/17/18 06:00 Pulse 57 05/17/18 10:35 Resp 16 05/17/18 07:00 BP 153/69 05/17/18 10:35 Pulse Ox 100 05/17/18 07:00 Intake & Output 05/16/18 05/17/18 05/17/18 18:59 06:59 18:59 Intake Total 1202 1430 Output Total 1600 Balance 1202 -170 Weight (lbs) 83.143 kg Intake: Intake, IV Amount 1202 200 Amikacin 500 mg In 102 Dextrose 5% 100 ml @ 200 mls/hr IV Q24HR [facility] Rx#: [id number] Piperacillin Sodium/ 100 200 Tazobact 2.25 gm In Sodium Chloride 0.9% 100 ml @ 100 mls/hr IV Q8HR [facility] Rx#:[id number] Sodium Chloride 0.9% 1, 1000 000 ml @ 80 mls/hr IV . [id number] [facility] Rx#:[id number] Tube Feeding 780 Other 450 Output: Urine 1600 Other: # Bowel Movements 1 Stool Characteristics Soft Soft Brown Brown Black Black Green Green Weight Source Bedscale Active Medications: Current Medications Acetaminophen (Tylenol 650mg/20.3ml Suspension) 650 mg GT Q6HR PRN PRN Reason: Mild Pain or Fever >101 Stop: 07/10/18 19:13 Last Admin: 05/11/18 21:39 Dose: 650 mg Acetaminophen/Hydrocodone Bitart ([place]bb 5mg/325mg) 1 tab GT Q6H PRN PRN Reason: Severe Pain Stop: 07/10/18 19:13 Acetylcysteine (Mucomyst 20%) 2 ml HHN Q6HRT [facility] Stop: 07/11/18 00:59 Last Admin: 05/17/18 06:58 Dose: 2 ml Albuterol Sulfate (Albuterol 2.5mg/3ml Neb Ud) 2.5 mg HHN Q2HRT PRN PRN Reason: Shortness of Breath or Wheeze Stop: 07/10/18 19:22 Albuterol/Ipratropium (Duoneb Neb) 3 ml HHN Q6HRT [facility] Stop: 07/11/18 00:59 Last Admin: 05/17/18 06:58 Dose: 3 ml Albuterol/Ipratropium (Duoneb Neb) 3 ml HHN Q2HRT PRN PRN Reason: Wheezing Stop: 07/10/18 19:13 Amlodipine Besylate (Norvasc) 5 mg GT DAILY [facility] Stop: 07/11/18 08:59 Last Admin: 05/17/18 10:35 Dose: Not Given Benztropine Mesylate (Cogentin) 1 mg GT BID [facility] Stop: 07/11/18 08:59 Last Admin: 05/17/18 10:41 Dose: Not Given Carbidopa/Levodopa (Sinemet 25mg-100 Mg) 1 tab GT DAILY [facility] Stop: 07/11/18 08:59 Last Admin: 05/17/18 10:41 Dose: Not Given Chlorhexidine Gluconate (Peridex) 15 ml MM 0800,1999 [facility] Stop: 07/10/18 19:59 Last Admin: 05/17/18 08:00 Dose: 15 ml Clonazepam (Klonopin) 0.5 mg GT BID [facility]; Protocol Stop: 07/11/18 08:59 Last Admin: 05/17/18 10:41 Dose: Not Given Docusate Sodium (Colace) 250 mg PO BID [facility] Stop: 07/11/18 08:59 Last Admin: 05/17/18 10:41 Dose: Not Given Ferrous Sulfate (Iron) 330 mg GT DAILY [facility] Stop: 07/11/18 08:59 Last Admin: 05/17/18 10:41 Dose: Not Given Gemfibrozil (Lopid) 600 mg GT BID [facility] Stop: 07/11/18 08:59 Last Admin: 05/17/18 10:42 Dose: Not Given Sodium Chloride (Nacl 0.9%) 1,000 mls @ 80 mls/hr IV .[id number] [facility] Stop: 07/10/18 19:29 Last Admin: 05/17/18 14:50 Dose: 80 mls/hr Piperacillin Sod/Tazobactam (Sod 2.25 gm/ Sodium Chloride) 100 mls @ 100 mls/ hr IV Q8HR [facility] Stop: 07/10/18 20:59 Last Admin: 05/17/18 13:00 Dose: 100 mls/hr Amikacin Sulfate 500 mg/ (Dextrose) 102 mls @ 200 mls/hr IV Q24HR [facility] Stop: 07/13/18 14:59 Last Infusion: 05/16/18 16:15 Dose: Infused Insulin Aspart (Novolog) 0 units SUBQ Q6H [facility]; Protocol Stop: 07/11/18 00:00 Last Admin: 05/17/18 12:00 Dose: Not Given Insulin Human Isoph/Insulin Regular (Novolin 70/30) 22 units SUBQ HS [facility]; Protocol Stop: 07/10/18 20:59 Last Admin: 05/16/18 21:08 Dose: 22 units Insulin Human Isoph/Insulin Regular (Novolin 70/30) 45 units SUBQ DAILY [facility]; Protocol Stop: 07/11/18 08:59 Last Admin: 05/17/18 09:00 Dose: Not Given Ipratropium [place] (Atrovent Neb 0.5mg/2.5ml) 0.5 mg HHN Q2HRT PRN PRN Reason: Shortness of Breath or Wheeze Stop: 07/10/18 19:22 Lactobacillus Rhamnosus (Culturelle 15b) 1 each GT DAILY [facility] Stop: 07/11/18 08:59 Last Admin: 05/17/18 10:42 Dose: Not Given Lactulose (Cephulac) 20 gm GT PRN PRN PRN Reason: BOWEL MANAGEMENT Stop: 07/10/18 19:13 Levetiracetam (Keppra) 1,000 mg GT Q12HR [facility] Stop: 07/11/18 08:59 Last Admin: 05/17/18 10:42 Dose: Not Given Levothyroxine Sodium (Synthroid) 0.1 mg GT QDAC [facility] Stop: 07/11/18 07:29 Last Admin: 05/17/18 10:34 Dose: Not Given Lorazepam (Ativan) 1 mg IV Q4H PRN; Protocol PRN Reason: Seizure Stop: 07/10/18 19:22 Metoclopramide HCl (Reglan) 10 mg GT Q8HR [facility] Stop: 07/12/18 12:59 Last Admin: 05/17/18 13:00 Dose: 10 mg Miscellaneous (Amikacin Iv Per Pharmacy) 1 ea MC PRN PRN PRN Reason: PROTOCOL Stop: 07/12/18 15:36 Ondansetron HCl (Zofran) 4 mg IV Q8H PRN PRN Reason: Nausea / Vomiting Stop: 07/10/18 19:23 Pantoprazole Sodium (Protonix) 40 mg IVP BID [facility] Stop: 07/11/18 08:59 Last Admin: 05/17/18 10:42 Dose: Not Given Petrolatum (Vaseline Oint) 1 appl TP BID [facility] Stop: 07/16/18 16:59 Simvastatin (Zocor) 20 mg PO HS [facility]; Protocol Stop: 07/10/18 20:59 Last Admin: 05/16/18 21:07 Dose: 20 mg Sucralfate (Carafate) 1 gm GT QID [facility] Stop: 07/10/18 20:59 Last Admin: 05/17/18 13:00 Dose: 1 gm Zinc Sulfate (Zinc Sulfate) 220 mg GT DAILY [facility] Stop: 07/11/18 08:59 Last Admin: 05/17/18 10:42 Dose: Not Given General: congested, demented, obtunded HEENT: NC/AT, PERRLA Neck: Supple, No JVD, No LAD, + trach, deformity Lungs: congested, rales, ronchi Cardiovascular: RRR, Normal S1, Normal S2, with murmur Abdomen: soft, globular, +GT, positive bowel sound Extremities: excoriation, contracture, deformity Neurological: no change, unable to follow command, bedbound - Procedures Procedures: Procedures Procedure Code Date AIRWAYS SURGICAL PROCEDURE 19748 03/03/16 BLOOD TRANSFUSION SERVICE 78398 09/27/17 CHANGE FEEDING DEVICE IN UP INTEST TRACT, [employer]IL[employer]S AND AXLE INSPECTOR APPROACH [id number] 12/10/16 CHANGE GASTROSTOMY TUBE 96066 06/06/13 CONTINUOUS INVASIVE MECHANICAL VENTILATION <96 CONSEC HRS 96.71 02/02/13 CONTINUOUS INVASIVE MECHANICAL VENTILATION =/>96 CONSEC HRS 96.72 06/06/13 [place] [address] 03/03/16 IMMUNIZATION ADMIN 55461 03/03/16 INFLUENZA VACCINATION 99.52 02/02/13 INSERT NON-TUNNEL CV CATH 28155 03/03/16 INSERTION OF INFUSION DEV INTO SUP VENA CAVA, PERC APPROACH [id number] 03/03/16 INSJ PICC 5 YR+ W/O IMAGING 90302 02/02/13 INTRODUCTION OF SERUM/TOX/VACCINE INTO MUSCLE, PERC APPROACH [id number] 03/03/16 OTHER GASTROSTOMY 43.19 06/03/10 REPLACE GASTROSTOMY TUBE 97.02 06/06/13 RESPIRATORY VENTILATION, GREATER THAN 96 CONSECUTIVE HOURS [id number] 05/11/18 TRANSFUSE NONAUT RED BLOOD CELLS IN PERIPH VEIN, PERC [id number] 09/27/17 VACCINATION NEC 99.55 02/02/13 VENOUS CATHETERIZATION NEC 38.93 10/05/13 VENT MGMT INPAT INIT DAY 22225 11/03/16 VENT MGMT INPAT SUBQ DAY 03/03/16 Internal Medicine Assmt/Plan - Assessment Assessment: ASSESSMENT: Anemia, which is severe, possibly secondary to a GI source versus hematuria from uti/sepsis, possible pneumonia, urinary tract infection, ventilator dependent respiratory failure, chronic hydrocephalus, dementia, decubitus ulcer, diabetes, obesity, Parkinson, leukocytosis, renal insufficiency, hyponatremia. - Plan Plan: PLAN: We will continue the patient on aggressive IV hydration and IV antibiotic. We will certainly give the patient vancomycin as well as Zosyn. We will hold the patient for blood transfusion. We will send for iron studies as well. We will discontinue aspirin as well as nonsteroidal anti-inflammatory drugs. We will continue to monitor the patient in ICU setting. appreciates dr romeo's input Nutritional Asmnt/Malnutr-PDOC - Dietary Evaluation Malnutrition Findings (Please click <Entered> for more info): Nutritional Asmnt/Malnutrition Start: 05/12/18 14: 39 Text: Status: Complete Freq: Protocol: Document 05/12/18 14:39 RHAQUE (Rec: 05/12/18 14:59 RHAQUE [id number]) Nutritional Asmnt/Malnutrition Patient General Information Nutritional Screening High Risk Consult Diagnosis UTI, GI bleed Pertinent Medical Hx/Surgical Hx Ventilator dependent Resp failure, Parkinson's, Seizure, Dementia, Chronic Hydrocephalus w [employer]ITT[employer] shunt, DM, Decubitus Ulcer, Subjective Information Consult received for Blood Glucose 233 with Hx of DM while on TF. Pt is trached to a ventilator. Current TF provides 1300ml/day volume, 1560 kcal/day, 78g Protein/ day. 1047 ml water total. Current Diet Order/ Nutrition Support Tube feeding Glucerna 1.2 65ml /hr x 20hrs Patient / S.O Not Indicated Pertinent Medications Docusate, Gemfibrozil, Insulin Aspart, Insulin Novolin, Lactulose, Synthroid, Metoclopramide, Ondansetron, Simvastatin Pertinent Labs (05/12) BUN 65, Na+ 135, Gluc 214, POC Gluc 241 Nutritional Hx/Data Height 1.63 m Height (Calculated Centimeters) 162.6 Current Weight (lbs) 78.018 kg Weight (Calculated Kilograms) 78.0 Weight (Calculated Grams) 19517.9 [place] Body Weight 120 % [place] Body Weight 135 Body Mass Index (BMI) 29.5 GI Symptoms Last BM No Noted B.M. Cultural/Ethnic/Zoroastrian Belief None indicated Skin Integrity/Comment: Germán Score 12. On Nursing flowsheet, pressure ulcer on coccyx noted. No wound care note. Unknown stage. Current %PO Negligible < 25% Estimated Nutritional Goals BEE in Kcals: Adj wt of IBW Calories/Kcals/Kg 25-30 Kcals Calculated [id number] Protein: Adj wt of IBW Protein g/k.2-1.5 Protein Calculated 72-90 Fluid: ml 3970-5801 Nutritional Problem 1. Problem Problem Altered Nutritional related Lab values Etiology Uncontrolled hyperglycemia aeb Signs/Symptoms: (05/12) Gluc 214, POC Gluc 241 Malnutrition Alert Is there a minimum of two criteria No selected? Query Text:Check all the applicable criteria. A minimum of two criteria are recommended for diagnosis of either severe or non-severe malnutrition. Malnutrition Related to Morbid Obesity Malnutrition related to morbid obesity No Intervention/Recommendation Comments Continue Tube feeding as ordered. Pt already on DM tube feeding formula. MD to modify insulin regimen as needed for optimal glycemic control. Will modify nutrient needs based on wound care notes. Expected Outcomes/Goals Expected Outcomes/Goals 1. Labs WNL 2. Tube feeding continue to be tolerated 3. F/U in 2-3 days as HR (05/14 -)
--- NOTE | 2018-05-17 17:19 | Infectious Disease Prog Note ---
Infectious Disease Subjective - Review of Systems Service Date: 05/17/18 Events since last encounter: c pseudomonas pn hpi- pt in icu sinus tachy wbc normal on vent ros no efcr o./e vss Vital Signs - 24 hr 05/16/18 05/16/18 05/16/18 18:00 18:46 19:00 Temp 97.6 F HR 64 63 62 RR 16 16 BP 153/74 158/77 O2 Sat % 100 100 100 05/16/18 05/16/18 05/16/18 20:00 21:00 21:07 Temp HR 57 67 62 RR 16 16 BP 161/78 160/78 O2 Sat % 100 100 05/16/18 05/16/18 05/16/18 22:00 22:07 23:00 Temp 97.7 F HR 55 61 55 RR 16 16 BP 150/68 150/68 155/71 O2 Sat % 100 100 05/16/18 05/17/18 05/17/18 23:15 00:00 01:00 Temp 98.0 F HR 59 62 58 RR 16 16 BP 150/69 150/70 O2 Sat % 100 100 100 05/17/18 05/17/18 05/17/18 01:20 02:00 03:00 Temp HR 57 57 58 RR 15 16 BP 152/64 155/69 O2 Sat % 100 100 100 05/17/18 05/17/18 05/17/18 03:34 04:00 05:00 Temp 97.7 F HR 56 55 55 RR 16 16 BP 160/69 163/78 O2 Sat % 100 100 100 05/17/18 05/17/18 05/17/18 05:18 05:32 06:00 Temp 97.9 F HR 59 64 56 RR 16 BP 160/74 O2 Sat % 100 100 05/17/18 05/17/18 05/17/18 06:32 06:59 07:00 Temp HR 52 51 58 RR 16 BP 158/76 157/76 O2 Sat % 100 100 05/17/18 05/17/18 05/17/18 09:00 10:35 11:00 Temp HR 55 57 56 RR 16 16 BP 147/56 153/69 147/55 O2 Sat % 100 100 05/17/18 05/17/18 05/17/18 13:30 14:00 15:29 Temp 97.8 F HR 52 51 51 RR 16 16 BP 169/65 158/67 O2 Sat % 100 100 100 05/17/18 16:00 Temp HR 50 RR 16 BP 158/67 O2 Sat % 100 chest vesicular abd soft ext pulse Laboratory Results - last 24 hr 05/15/18 05/16/18 05/16/18 21:02 17:32 21:01 WBC RBC Hgb Hct MCV MCH MCHC Differential RDW Plt Count MPV Neutrophils % Lymphocytes % Monocytes % Eosinophils % Basophils % PT INR PTT (Actin FS) Sodium Potassium Chloride Carbon Dioxide Anion Gap BUN Creatinine Est GFR ( Amer) Est GFR (Non-Af Amer) BUN/Creatinine Ratio Glucose POC Glucose 161 H 179 H 161 H Calcium 05/16/18 05/17/18 05/17/18 23:28 04:35 04:35 WBC 8.0 RBC 3.12 L Hgb 8.5 L Hct 26.2 L MCV 83.9 MCH 27.4 MCHC Differential 32.6 RDW 15.9 Plt Count 311 MPV 7.8 Neutrophils % 74.8 Lymphocytes % 13.3 L Monocytes % 6.8 Eosinophils % 4.7 Basophils % 0.4 PT INR PTT (Actin FS) Sodium 141 Potassium 4.4 Chloride 112 H Carbon Dioxide 19.7 L Anion Gap 13.7 BUN 22 Creatinine 0.8 Est GFR ( Amer) TNP Est GFR (Non-Af Amer) TNP BUN/Creatinine Ratio 27.5 Glucose 165 H POC Glucose 173 H Calcium 8.4 L 05/17/18 05/17/18 05/17/18 04:35 05:14 10:46 WBC RBC Hgb Hct MCV MCH MCHC Differential RDW Plt Count MPV Neutrophils % Lymphocytes % Monocytes % Eosinophils % Basophils % PT 10.8 INR 1.04 PTT (Actin FS) 26.2 Sodium Potassium Chloride Carbon Dioxide Anion Gap BUN Creatinine Est GFR ( Amer) Est GFR (Non-Af Amer) BUN/Creatinine Ratio Glucose POC Glucose 155 H 141 H Calcium Microbiology 05/11/18 15:45 Blood - Final NO GROWTH AFTER 5 DAYS 05/11/18 15:31 Blood - Final NO GROWTH AFTER 5 DAYS 05/12/18 00:10 Sputum Culture - Endotracheal Wash Gram Stain - Final 05/12/18 00:10 Sputum Culture - Endotracheal Wash Sputum Culture - Final Pseudomonas Aeruginosa 05/11/18 16:50 Urine,Clean Catch Urine Culture - Final Klebsiella Pneumoniae Esbl Proteus Mirabilis 05/11/18 12:30 Nares - Final NO MRSA ISOLATED Diagnoses SEPSIS, UNSPECIFIED ORGANISM (05/11/18) ANEMIA, UNSPECIFIED (05/11/18) PNEUMONIA, UNSPECIFIED ORGANISM (05/11/18) CHRONIC RESPIRATORY FAILURE, UNSP W HYPOXIA OR HYPERCAPNIA (05/11/18) URINARY TRACT INFECTION, SITE NOT SPECIFIED (05/11/18) WEAKNESS (05/11/18) DEPENDENCE ON SUPPLEMENTAL OXYGEN (05/11/18) Current Medications Acetaminophen (Tylenol 650mg/20.3ml Suspension) 650 mg GT Q6HR PRN PRN Reason: Mild Pain or Fever >101 Stop: 07/10/18 19:13 Last Admin: 05/11/18 21:39 Dose: 650 mg Acetaminophen/Hydrocodone Bitart ([place] 5mg/325mg) 1 tab GT Q6H PRN PRN Reason: Severe Pain Stop: 07/10/18 19:13 Acetylcysteine (Mucomyst 20%) 2 ml HHN Q6HRT [facility] Stop: 07/11/18 00:59 Last Admin: 05/17/18 15:32 Dose: 2 ml Albuterol Sulfate (Albuterol 2.5mg/3ml Neb Ud) 2.5 mg HHN Q2HRT PRN PRN Reason: Shortness of Breath or Wheeze Stop: 07/10/18 19:22 Albuterol/Ipratropium (Duoneb Neb) 3 ml HHN Q6HRT [facility] Stop: 07/11/18 00:59 Last Admin: 05/17/18 15:28 Dose: 3 ml Albuterol/Ipratropium (Duoneb Neb) 3 ml HHN Q2HRT PRN PRN Reason: Wheezing Stop: 07/10/18 19:13 Amlodipine Besylate (Norvasc) 5 mg GT DAILY [facility] Stop: 07/11/18 08:59 Last Admin: 05/17/18 10:35 Dose: Not Given Benztropine Mesylate (Cogentin) 1 mg GT BID [facility] Stop: 07/11/18 08:59 Last Admin: 05/17/18 10:41 Dose: Not Given Carbidopa/Levodopa (Sinemet 25mg-100 Mg) 1 tab GT DAILY [facility] Stop: 07/11/18 08:59 Last Admin: 05/17/18 10:41 Dose: Not Given Chlorhexidine Gluconate (Peridex) 15 ml MM 08,1999 [facility] Stop: 07/10/18 19:59 Last Admin: 05/17/18 08:00 Dose: 15 ml Clonazepam (Klonopin) 0.5 mg GT BID [facility]; Protocol Stop: 07/11/18 08:59 Last Admin: 05/17/18 10:41 Dose: Not Given Docusate Sodium (Colace) 250 mg PO BID [facility] Stop: 07/11/18 08:59 Last Admin: 05/17/18 10:41 Dose: Not Given Ferrous Sulfate (Iron) 330 mg GT DAILY [facility] Stop: 07/11/18 08:59 Last Admin: 05/17/18 10:41 Dose: Not Given Gemfibrozil (Lopid) 600 mg GT BID [facility] Stop: 07/11/18 08:59 Last Admin: 05/17/18 10:42 Dose: Not Given Sodium Chloride (Nacl 0.9%) 1,000 mls @ 80 mls/hr IV .[id number] [facility] Stop: 07/10/18 19:29 Last Admin: 05/17/18 14:50 Dose: 80 mls/hr Piperacillin Sod/Tazobactam (Sod 2.25 gm/ Sodium Chloride) 100 mls @ 100 mls/ hr IV Q8HR [facility] Stop: 07/10/18 20:59 Last Admin: 05/17/18 13:00 Dose: 100 mls/hr Amikacin Sulfate 500 mg/ (Dextrose) 102 mls @ 200 mls/hr IV Q24HR [facility] Stop: 07/13/18 14:59 Last Admin: 05/17/18 15:00 Dose: 200 mls/hr Insulin Aspart (Novolog) 0 units SUBQ Q6H [facility]; Protocol Stop: 07/11/18 00:00 Last Admin: 05/17/18 12:00 Dose: Not Given Insulin Human Isoph/Insulin Regular (Novolin 70/30) 22 units SUBQ HS [facility]; Protocol Stop: 07/10/18 20:59 Last Admin: 05/16/18 21:08 Dose: 22 units Insulin Human Isoph/Insulin Regular (Novolin 70/30) 45 units SUBQ DAILY [facility]; Protocol Stop: 07/11/18 08:59 Last Admin: 05/17/18 09:00 Dose: Not Given Ipratropium [place] (Atrovent Neb 0.5mg/2.5ml) 0.5 mg HHN Q2HRT PRN PRN Reason: Shortness of Breath or Wheeze Stop: 07/10/18 19:22 Lactobacillus Rhamnosus (Culturelle 15b) 1 each GT DAILY [facility] Stop: 07/11/18 08:59 Last Admin: 05/17/18 10:42 Dose: Not Given Lactulose (Cephulac) 20 gm GT PRN PRN PRN Reason: BOWEL MANAGEMENT Stop: 07/10/18 19:13 Levetiracetam (Keppra) 1,000 mg GT Q12HR [facility] Stop: 07/11/18 08:59 Last Admin: 05/17/18 10:42 Dose: Not Given Levothyroxine Sodium (Synthroid) 0.1 mg GT QDAC [facility] Stop: 07/11/18 07:29 Last Admin: 05/17/18 10:34 Dose: Not Given Lorazepam (Ativan) 1 mg IV Q4H PRN; Protocol PRN Reason: Seizure Stop: 07/10/18 19:22 Metoclopramide HCl (Reglan) 10 mg GT Q8HR [facility] Stop: 07/12/18 12:59 Last Admin: 05/17/18 13:00 Dose: 10 mg Miscellaneous (Amikacin Iv Per Pharmacy) 1 ea MC PRN PRN PRN Reason: PROTOCOL Stop: 07/12/18 15:36 Ondansetron HCl (Zofran) 4 mg IV Q8H PRN PRN Reason: Nausea / Vomiting Stop: 07/10/18 19:23 Pantoprazole Sodium (Protonix) 40 mg IVP BID [facility] Stop: 07/11/18 08:59 Last Admin: 05/17/18 10:42 Dose: Not Given Petrolatum (Vaseline Oint) 1 appl TP BID [facility] Stop: 07/16/18 16:59 Simvastatin (Zocor) 20 mg PO HS [facility]; Protocol Stop: 07/10/18 20:59 Last Admin: 05/16/18 21:07 Dose: 20 mg Sucralfate (Carafate) 1 gm GT QID [facility] Stop: 07/10/18 20:59 Last Admin: 05/17/18 13:00 Dose: 1 gm Zinc Sulfate (Zinc Sulfate) 220 mg GT DAILY [facility] Stop: 07/11/18 08:59 Last Admin: 05/17/18 10:42 Dose: Not Given Subjective: cc pn uti hpi- cx noted i n icu on vent vs chest claer abd soft trach dx Vital Signs - 24 hr 05/13/18 05/13/18 05/13/18 18:00 18:53 19:00 Temp HR 79 74 69 RR 15 16 BP 138/58 143/53 O2 Sat % 100 100 100 05/13/18 05/13/18 05/13/18 20:00 20:29 21:00 Temp 98.1 F HR 83 83 74 RR 16 16 BP 151/75 140/67 O2 Sat % 100 100 100 05/13/18 05/13/18 05/13/18 22:00 22:57 23:00 Temp HR 71 73 71 RR 16 16 BP 135/67 135/67 O2 Sat % 100 100 100 05/14/18 05/14/18 05/14/18 00:00 00:57 01:00 Temp 98.6 F HR 73 78 74 RR 16 16 BP 139/71 149/73 O2 Sat % 100 100 100 05/14/18 05/14/18 05/14/18 02:00 02:48 03:00 Temp HR 73 74 70 RR 16 16 BP 148/68 133/58 O2 Sat % 100 100 100 05/14/18 05/14/18 05/14/18 03:32 04:00 04:33 Temp 98.3 F HR 66 77 RR 16 16 BP 136/56 O2 Sat % 100 100 05/14/18 05/14/18 05/14/18 05:00 06:00 07:00 Temp 99.0 F HR 79 76 79 RR 15 16 16 BP 133/60 130/63 143/67 O2 Sat % 100 100 100 05/14/18 05/14/18 05/14/18 07:46 08:00 08:40 Temp 98.7 F HR 77 69 70 RR 16 BP 124/60 O2 Sat % 100 100 100 05/14/18 05/14/18 05/14/18 09:00 09:31 10:00 Temp 98.6 F 99.1 F HR 70 71 78 RR 16 16 BP 122/54 122/54 135/67 O2 Sat % 100 100 05/14/18 05/14/18 05/14/18 11:00 11:07 12:00 Temp 98.7 F 98.6 F HR 71 76 69 RR 16 14 BP 120/55 117/52 O2 Sat % 100 100 100 05/14/18 05/14/18 05/14/18 12:59 13:00 14:00 Temp 98.5 F 98.6 F HR 66 65 81 RR 16 16 BP 131/64 131/64 O2 Sat % 100 100 100 05/14/18 05/14/18 05/14/18 15:14 16:00 17:32 Temp HR 79 92 RR BP O2 Sat % 100 100 100 Laboratory Results - last 24 hr 05/12/18 05/13/18 05/13/18 20:56 17:59 21:56 WBC RBC Hgb Hct MCV MCH MCHC Differential RDW Plt Count MPV Add Manual Diff Band Neutrophils % Neutrophils (Manual) Lymphocytes Monocytes Sodium Potassium Chloride Carbon Dioxide Anion Gap BUN Creatinine Est GFR ( Amer) Est GFR (Non-Af Amer) BUN/Creatinine Ratio Glucose POC Glucose 207 H 176 H 148 H Calcium B-Natriuretic Peptide 05/13/18 05/14/18 05/14/18 21:58 00:35 04:35 WBC 8.1 RBC 2.68 L Hgb 7.1 L* Hct 21.9 L MCV 81.9 MCH 26.4 L MCHC Differential 32.2 RDW 16.9 Plt Count 286 MPV 7.4 Add Manual Diff YES Band Neutrophils % 2 Neutrophils (Manual) 80 Lymphocytes 12 L Monocytes 6 Sodium Potassium Chloride Carbon Dioxide Anion Gap BUN Creatinine Est GFR ( Amer) Est GFR (Non-Af Amer) BUN/Creatinine Ratio Glucose POC Glucose 149 H 161 H Calcium B-Natriuretic Peptide 05/14/18 05/14/18 05/14/18 04:35 04:35 05:30 WBC RBC Hgb Hct MCV MCH MCHC Differential RDW Plt Count MPV Add Manual Diff Band Neutrophils % Neutrophils (Manual) Lymphocytes Monocytes Sodium 139 Potassium 4.2 Chloride 106 Carbon Dioxide 22.1 Anion Gap 15.1 BUN 50 H Creatinine 1.3 H Est GFR ( Amer) TNP Est GFR (Non-Af Amer) TNP BUN/Creatinine Ratio 38.5 Glucose 165 H POC Glucose 143 H Calcium 8.4 L B-Natriuretic Peptide 84.7 05/14/18 05/14/18 09:27 13:29 WBC RBC Hgb Hct MCV MCH MCHC Differential RDW Plt Count MPV Add Manual Diff Band Neutrophils % Neutrophils (Manual) Lymphocytes Monocytes Sodium Potassium Chloride Carbon Dioxide Anion Gap BUN Creatinine Est GFR ( Amer) Est GFR (Non-Af Amer) BUN/Creatinine Ratio Glucose POC Glucose 176 H 161 H Calcium B-Natriuretic Peptide Diagnoses SEPSIS, UNSPECIFIED ORGANISM (05/11/18) ANEMIA, UNSPECIFIED (05/11/18) PNEUMONIA, UNSPECIFIED ORGANISM (05/11/18) CHRONIC RESPIRATORY FAILURE, UNSP W HYPOXIA OR HYPERCAPNIA (05/11/18) URINARY TRACT INFECTION, SITE NOT SPECIFIED (05/11/18) WEAKNESS (05/11/18) DEPENDENCE ON SUPPLEMENTAL OXYGEN (05/11/18) Current Medications Acetaminophen (Tylenol 650mg/20.3ml Suspension) 650 mg GT Q6HR PRN PRN Reason: Mild Pain or Fever >101 Stop: 07/10/18 19:13 Last Admin: 05/11/18 21:39 Dose: 650 mg Acetaminophen/Hydrocodone Bitart ([place] 5mg/325mg) 1 tab GT Q6H PRN PRN Reason: Severe Pain Stop: 07/10/18 19:13 Acetylcysteine (Mucomyst 20%) 2 ml HHN Q6HRT [facility] Stop: 07/11/18 00:59 Last Admin: 05/14/18 12:59 Dose: 2 ml Albuterol Sulfate (Albuterol 2.5mg/3ml Neb Ud) 2.5 mg HHN Q2HRT PRN PRN Reason: Shortness of Breath or Wheeze Stop: 07/10/18 19:22 Albuterol/Ipratropium (Duoneb Neb) 3 ml HHN Q6HRT [facility] Stop: 07/11/18 00:59 Last Admin: 05/14/18 12:59 Dose: 3 ml Albuterol/Ipratropium (Duoneb Neb) 3 ml HHN Q2HRT PRN PRN Reason: Wheezing Stop: 07/10/18 19:13 Amlodipine Besylate (Norvasc) 5 mg GT DAILY [facility] Stop: 07/11/18 08:59 Last Admin: 05/14/18 09:31 Dose: 5 mg Benztropine Mesylate (Cogentin) 1 mg GT BID [facility] Stop: 07/11/18 08:59 Last Admin: 05/14/18 16:38 Dose: 1 mg Carbidopa/Levodopa (Sinemet 25mg-100 Mg) 1 tab GT DAILY [facility] Stop: 07/11/18 08:59 Last Admin: 05/14/18 09:30 Dose: 1 tab Chlorhexidine Gluconate (Peridex) 15 ml MM 0800,2000 [facility] Stop: 07/10/18 19:59 Last Admin: 05/14/18 09:32 Dose: 15 ml Clonazepam (Klonopin) 0.5 mg GT BID [facility]; Protocol Stop: 07/11/18 08:59 Last Admin: 05/14/18 16:38 Dose: 0.5 mg Docusate Sodium (Colace) 250 mg PO BID [facility] Stop: 07/11/18 08:59 Last Admin: 05/14/18 16:38 Dose: 250 mg Ferrous Sulfate (Iron) 330 mg GT DAILY [facility] Stop: 07/11/18 08:59 Last Admin: 05/14/18 09:30 Dose: 330 mg Gemfibrozil (Lopid) 600 mg GT BID [facility] Stop: 07/11/18 08:59 Last Admin: 05/14/18 16:38 Dose: 600 mg Sodium Chloride (Nacl 0.9%) 1,000 mls @ 80 mls/hr IV .[id number] [facility] Stop: 07/10/18 19:29 Last Admin: 05/14/18 16:48 Dose: 80 mls/hr Piperacillin Sod/Tazobactam (Sod 2.25 gm/ Sodium Chloride) 100 mls @ 100 mls/ hr IV Q8HR [facility] Stop: 07/10/18 20:59 Last Admin: 05/14/18 13:44 Dose: 100 mls/hr Amikacin Sulfate 500 mg/ (Dextrose) 102 mls @ 200 mls/hr IV Q24HR [facility] Stop: 07/13/18 14:59 Last Admin: 05/14/18 15:44 Dose: 200 mls/hr Insulin Aspart (Novolog) 0 units SUBQ Q6H [facility]; Protocol Stop: 07/11/18 00:00 Last Admin: 05/14/18 13:44 Dose: 2 units Insulin Human Isoph/Insulin Regular (Novolin 70/30) 22 units SUBQ HS [facility]; Protocol Stop: 07/10/18 20:59 Last Admin: 05/13/18 21:45 Dose: 22 units Insulin Human Isoph/Insulin Regular (Novolin 70/30) 45 units SUBQ DAILY [facility]; Protocol Stop: 07/11/18 08:59 Last Admin: 05/14/18 09:34 Dose: 45 units Ipratropium [place] (Atrovent Neb 0.5mg/2.5ml) 0.5 mg HHN Q2HRT PRN PRN Reason: Shortness of Breath or Wheeze Stop: 07/10/18 19:22 Lactobacillus Rhamnosus (Culturelle 15b) 1 each GT DAILY [facility] Stop: 07/11/18 08:59 Last Admin: 05/14/18 09:30 Dose: 1 each Lactulose (Cephulac) 20 gm GT PRN PRN PRN Reason: BOWEL MANAGEMENT Stop: 07/10/18 19:13 Levetiracetam (Keppra) 1,000 mg GT Q12HR [facility] Stop: 07/11/18 08:59 Last Admin: 05/14/18 09:31 Dose: 1,000 mg Levothyroxine Sodium (Synthroid) 0.1 mg GT QDAC [facility] Stop: 07/11/18 07:29 Last Admin: 05/14/18 09:30 Dose: 0.1 mg Lorazepam (Ativan) 1 mg IV Q4H PRN; Protocol PRN Reason: Seizure Stop: 07/10/18 19:22 Metoclopramide HCl (Reglan) 10 mg GT Q8HR [facility] Stop: 07/12/18 12:59 Last Admin: 05/14/18 13:44 Dose: 10 mg Miscellaneous (Calcium Alginate [Juan]) 1 each TP DAILY [facility] Stop: 07/11/18 08:59 Miscellaneous (Collagenase Clostridium Hist. [Santyl]) 1 appl TP DAILY [facility] Stop: 07/11/18 08:59 Miscellaneous (Petrolatum,White/Lanolin [Vitamin A And D Ointment]) 113 gm TP DAILY [facility] Stop: 07/11/18 08:59 Miscellaneous (Amikacin Iv Per Pharmacy) 1 ea MC PRN PRN PRN Reason: PROTOCOL Stop: 07/12/18 15:36 Ondansetron HCl (Zofran) 4 mg IV Q8H PRN PRN Reason: Nausea / Vomiting Stop: 07/10/18 19:23 Pantoprazole Sodium (Protonix) 40 mg IVP BID [facility] Stop: 07/11/18 08:59 Last Admin: 05/14/18 16:39 Dose: 40 mg Simvastatin (Zocor) 20 mg PO HS [facility]; Protocol Stop: 07/10/18 20:59 Last Admin: 05/13/18 21:10 Dose: 20 mg Sucralfate (Carafate) 1 gm GT QID [facility] Stop: 07/10/18 20:59 Last Admin: 05/14/18 16:38 Dose: 1 gm Zinc Sulfate (Zinc Sulfate) 220 mg GT DAILY [facility] Stop: 07/11/18 08:59 Last Admin: 05/14/18 09:31 Dose: 220 mg 05/14/18 16:21 Wound Care Notes by Eric Connors Wound Evaluation: Wound Consult ordered for low Germán score. Patient evaluated for a low Germán score of 12. Patient was asleep, non- responsive to voice, responsive to tactile stimuli, and received in a [facility] bed with an IsoFlex [id number] mattress. Patient is unable to turn in bed independently. Skin is fair; Scar tissue present on Sacral-Coccygeal area. Recommend: Reposition patient [id number] only every two hours with pillow support. Elevate, off-load, and float bilateral heels with one pillow lengthwise under each extremity at all times. Offload pressure areas with pillows for pressure re-distribution. Perform skin care and monitor skin integrity q shift. Use moisture barrier cream on moisture susceptible areas qid and as needed for soiling. Initiate low air loss therapy. Will continue to follow as a Germán. Initialized on 05/14/18 16:21 - END OF NOTE Infectious Disease Objective - Results Result Diagrams: 05/17/18 04:35 05/17/18 04:35 Recent Labs: Laboratory Last Values WBC 8.0 Th/cmm (4.8-10.8) 05/17/18 04:35 RBC 3.12 Mil/cmm (3.80-5.20) L 05/17/18 04:35 Hgb 8.5 gm/dL (12-16) L 05/17/18 04:35 Hct 26.2 % (41.0-60) L 05/17/18 04:35 MCV 83.9 fl (81-100) 05/17/18 04:35 MCH 27.4 pg (27.0-31.0) 05/17/18 04:35 MCHC Differential 32.6 pg (28.0-36.0) 05/17/18 04:35 RDW 15.9 % (11.5-20.0) 05/17/18 04:35 Plt Count 311 Th/cmm (150-400) 05/17/18 04:35 MPV 7.8 fl 05/17/18 04:35 Add Manual Diff YES 05/15/18 04:20 Neutrophils % 74.8 % (40.0-80.0) 05/17/18 04:35 Band Neutrophils % 0 % (0-10) 05/15/18 04:20 Lymphocytes % 13.3 % (20.0-50.0) L 05/17/18 04:35 Monocytes % 6.8 % (2.0-10.0) 05/17/18 04:35 Eosinophils % 4.7 % (0.0-5.0) 05/17/18 04:35 Basophils % 0.4 % (0.0-2.0) 05/17/18 04:35 Neutrophils (Manual) 80 % (40-80) 05/15/18 04:20 Lymphocytes 14 % (20-50) L 05/15/18 04:20 Monocytes 6 % (2-10) 05/15/18 04:20 Eosinophils 2 % (0-5) 05/12/18 07:10 Basophils 0 % (0-3) 05/12/18 07:10 PT 10.8 SECONDS (9.5-11.5) 05/17/18 04:35 INR 1.04 (0.5-1.4) 05/17/18 04:35 PTT (Actin FS) 26.2 SECONDS (26.0-38.0) 05/17/18 04:35 Sodium 141 mEq/L (136-145) 05/17/18 04:35 Potassium 4.4 mEq/L (3.5-5.1) 05/17/18 04:35 Chloride 112 mEq/L (98-107) H 05/17/18 04:35 Carbon Dioxide 19.7 mEq/L (21.0-31.0) L 05/17/18 04:35 Anion Gap 13.7 (7.0-16.0) 05/17/18 04:35 BUN 22 mg/dL (7-25) 05/17/18 04:35 Creatinine 0.8 mg/dL (0.6-1.2) 05/17/18 04:35 Est GFR ( Amer) TNP 05/17/18 04:35 Est GFR (Non-Af Amer) TNP 05/17/18 04:35 BUN/Creatinine Ratio 27.5 05/17/18 04:35 Glucose 165 mg/dL (70-105) H 05/17/18 04:35 POC Glucose 141 MG/DL (70 - 105) H 05/17/18 10:46 Whole Bld Lactic Acid 1.45 mmol/L (0.60-1.99) 05/11/18 15:45 Calcium 8.4 mg/dL (8.6-10.3) L 05/17/18 04:35 Phosphorus 3.9 mg/dL (2.5-5.0) 05/11/18 15:45 Magnesium 2.7 mg/dL (1.9-2.7) 05/11/18 15:45 Iron 49 ug/dL (27-139) 05/12/18 07:10 TIBC 264 ug/dL (250-450) 05/12/18 07:10 Iron Saturation 19 % (15-55) 05/12/18 07:10 Unsaturated IBC 215 ug/dL (118-369) 05/12/18 07:10 Total Bilirubin 0.3 mg/dL (0.3-1.0) 05/11/18 15:45 AST 13 U/L (13-39) 05/11/18 15:45 ALT 10 U/L (7-52) 05/11/18 15:45 Alkaline Phosphatase 81 U/L (34-104) 05/11/18 15:45 Ammonia 59 umol/L (16-53) H 05/13/18 04:10 B-Natriuretic Peptide 84.7 pg/mL (5.0-100.0) 05/14/18 04:35 Total Protein 8.3 gm/dL (6.0-8.3) 05/11/18 15:45 Albumin 3.6 gm/dL (3.7-5.3) L 05/11/18 15:45 Globulin 4.7 gm/dL 05/11/18 15:45 Albumin/Globulin Ratio 0.8 (1.0-1.8) L 05/11/18 15:45 Vitamin B12 1516 pg/mL (232-1245) H 05/12/18 07:10 Folic Acid >20.0 ng/mL (>3.0) 05/12/18 07:10 TSH 1.25 uIU/ml (0.34-5.60) 05/11/18 15:45 Urine Source CATH 05/11/18 16:50 Urine Color BROWN 05/11/18 16:50 Urine Clarity CLOUDY (CLEAR) H 05/11/18 16:50 Urine pH 7.0 (4.6 - 8.0) 05/11/18 16:50 Ur Specific [place] 1.010 (1.005-1.030) 05/11/18 16:50 Urine Protein 100 mg/dL (NEGATIVE) H 05/11/18 16:50 Urine Glucose (UA) NEGATIVE mg/dL (NEGATIVE) 05/11/18 16:50 Urine Ketones NEGATIVE mg/dL (NEGATIVE) 05/11/18 16:50 Urine Blood LARGE (NEGATIVE) H 05/11/18 16:50 Urine Nitrate NEGATIVE (NEGATIVE) 05/11/18 16:50 Urine Bilirubin SMALL (NEGATIVE) H 05/11/18 16:50 Urine Urobilinogen 0.2 E.U./dL (0.2 - 1.0) 05/11/18 16:50 Ur Leukocyte Esterase LARGE (NEGATIVE) H 05/11/18 16:50 Urine RBC 25-50 /hpf (0-5) H 05/11/18 16:50 Urine WBC 50-100 /hpf (0-5) H 05/11/18 16:50 Ur Epithelial Cells MODERATE /lpf (FEW) 05/11/18 16:50 Urine Bacteria 4+ /hpf (NONE SEEN) H 05/11/18 16:50 Amikacin Peak 27.9 ug/mL (20.0-30.0) 05/15/18 16:40 Amikacin Trough 6.4 ug/mL (1.0-8.0) 05/15/18 13:50 Urine Opiates Screen POSITIVE (NEGATIVE) H 05/11/18 16:50 Urine Methadone Screen NEGATIVE (NEGATIVE) 05/11/18 16:50 Ur Barbiturates Screen NEGATIVE (NEGATIVE) 05/11/18 16:50 Ur Tricyclics Screen NEGATIVE (NEGATIVE) 05/11/18 16:50 Levetiracetam 51.3 ug/mL (10.0-40.0) H 05/11/18 15:45 Ur Phencyclidine Scrn NEGATIVE (NEGATIVE) 05/11/18 16:50 Amphetamines Screen NEGATIVE (NEGATIVE) 05/11/18 16:50 U Methamphetamines Scrn NEGATIVE (NEGATIVE) 05/11/18 16:50 U Benzodiazepines Scrn NEGATIVE (NEGATIVE) 05/11/18 16:50 U Cocaine Metab Screen NEGATIVE (NEGATIVE) 05/11/18 16:50 U Cannabinoids Screen NEGATIVE (NEGATIVE) 05/11/18 16:50 Blood Type A POSITIVE 05/16/18 09:30 Rho(D) Type Cancelled 05/11/18 16:48 Antibody Screen NEGATIVE 05/16/18 09:30 Crossmatch See Detail 05/16/18 09:30 BBK History Checked Cancelled 05/11/18 16:48 - Physical Exam Vitals and I&O: Vital Signs Temp 97.8 F 05/17/18 13:30 Pulse 50 05/17/18 16:00 Resp 16 05/17/18 16:00 BP 158/67 05/17/18 16:00 Pulse Ox 100 05/17/18 16:00 Intake & Output 05/16/18 05/17/18 05/17/18 18:59 06:59 18:59 Intake Total 1202 1430 Output Total 1600 Balance 1202 -170 Weight (lbs) 83.143 kg Intake: Intake, IV Amount 1202 200 Amikacin 500 mg In 102 Dextrose 5% 100 ml @ 200 mls/hr IV Q24HR [facility] FRANCISCO Rx#: [id number] Piperacillin Sodium/ 100 200 Tazobact 2.25 gm In Sodium Chloride 0.9% 100 ml @ 100 mls/hr IV Q8HR [facility] FRANCISCO Rx#:[id number] Sodium Chloride 0.9% 1, 1000 000 ml @ 80 mls/hr IV . [id number] [facility] FRANCISCO Rx#:[id number] Tube Feeding 780 Other 450 Output: Urine 1600 Other: # Bowel Movements 1 Stool Characteristics Soft Soft Brown Brown Black Black Green Green Weight Source Bedscale Active Medications: Current Medications Acetaminophen (Tylenol 650mg/20.3ml Suspension) 650 mg GT Q6HR PRN PRN Reason: Mild Pain or Fever >101 Stop: 07/10/18 19:13 Last Admin: 05/11/18 21:39 Dose: 650 mg Acetaminophen/Hydrocodone Bitart ([place] 5mg/325mg) 1 tab GT Q6H PRN PRN Reason: Severe Pain Stop: 07/10/18 19:13 Acetylcysteine (Mucomyst 20%) 2 ml HHN Q6HRT [facility] Stop: 07/11/18 00:59 Last Admin: 05/17/18 15:32 Dose: 2 ml Albuterol Sulfate (Albuterol 2.5mg/3ml Neb Ud) 2.5 mg HHN Q2HRT PRN PRN Reason: Shortness of Breath or Wheeze Stop: 07/10/18 19:22 Albuterol/Ipratropium (Duoneb Neb) 3 ml HHN Q6HRT [facility] Stop: 07/11/18 00:59 Last Admin: 05/17/18 15:28 Dose: 3 ml Albuterol/Ipratropium (Duoneb Neb) 3 ml HHN Q2HRT PRN PRN Reason: Wheezing Stop: 07/10/18 19:13 Amlodipine Besylate (Norvasc) 5 mg GT DAILY [facility] Stop: 07/11/18 08:59 Last Admin: 05/17/18 10:35 Dose: Not Given Benztropine Mesylate (Cogentin) 1 mg GT BID [facility] Stop: 07/11/18 08:59 Last Admin: 05/17/18 10:41 Dose: Not Given Carbidopa/Levodopa (Sinemet 25mg-100 Mg) 1 tab GT DAILY [facility] Stop: 07/11/18 08:59 Last Admin: 05/17/18 10:41 Dose: Not Given Chlorhexidine Gluconate (Peridex) 15 ml MM 0800,2000 [facility] Stop: 07/10/18 19:59 Last Admin: 05/17/18 08:00 Dose: 15 ml Clonazepam (Klonopin) 0.5 mg GT BID [facility]; Protocol Stop: 07/11/18 08:59 Last Admin: 05/17/18 10:41 Dose: Not Given Docusate Sodium (Colace) 250 mg PO BID [facility] Stop: 07/11/18 08:59 Last Admin: 05/17/18 10:41 Dose: Not Given Ferrous Sulfate (Iron) 330 mg GT DAILY [facility] Stop: 07/11/18 08:59 Last Admin: 05/17/18 10:41 Dose: Not Given Gemfibrozil (Lopid) 600 mg GT BID [facility] Stop: 07/11/18 08:59 Last Admin: 05/17/18 10:42 Dose: Not Given Sodium Chloride (Nacl 0.9%) 1,000 mls @ 80 mls/hr IV .[id number] [facility] Stop: 07/10/18 19:29 Last Admin: 05/17/18 14:50 Dose: 80 mls/hr Piperacillin Sod/Tazobactam (Sod 2.25 gm/ Sodium Chloride) 100 mls @ 100 mls/ hr IV Q8HR [facility] Stop: 07/10/18 20:59 Last Admin: 05/17/18 13:00 Dose: 100 mls/hr Amikacin Sulfate 500 mg/ (Dextrose) 102 mls @ 200 mls/hr IV Q24HR [facility] Stop: 07/13/18 14:59 Last Admin: 05/17/18 15:00 Dose: 200 mls/hr Insulin Aspart (Novolog) 0 units SUBQ Q6H [facility]; Protocol Stop: 07/11/18 00:00 Last Admin: 05/17/18 12:00 Dose: Not Given Insulin Human Isoph/Insulin Regular (Novolin 70/30) 22 units SUBQ HS [facility]; Protocol Stop: 07/10/18 20:59 Last Admin: 05/16/18 21:08 Dose: 22 units Insulin Human Isoph/Insulin Regular (Novolin 70/30) 45 units SUBQ DAILY [facility]; Protocol Stop: 07/11/18 08:59 Last Admin: 05/17/18 09:00 Dose: Not Given Ipratropium [place] (Atrovent Neb 0.5mg/2.5ml) 0.5 mg HHN Q2HRT PRN PRN Reason: Shortness of Breath or Wheeze Stop: 07/10/18 19:22 Lactobacillus Rhamnosus (Culturelle 15b) 1 each GT DAILY [facility] Stop: 07/11/18 08:59 Last Admin: 05/17/18 10:42 Dose: Not Given Lactulose (Cephulac) 20 gm GT PRN PRN PRN Reason: BOWEL MANAGEMENT Stop: 07/10/18 19:13 Levetiracetam (Keppra) 1,000 mg GT Q12HR [facility] Stop: 07/11/18 08:59 Last Admin: 05/17/18 10:42 Dose: Not Given Levothyroxine Sodium (Synthroid) 0.1 mg GT QDAC [facility] Stop: 07/11/18 07:29 Last Admin: 05/17/18 10:34 Dose: Not Given Lorazepam (Ativan) 1 mg IV Q4H PRN; Protocol PRN Reason: Seizure Stop: 07/10/18 19:22 Metoclopramide HCl (Reglan) 10 mg GT Q8HR [facility] Stop: 07/12/18 12:59 Last Admin: 05/17/18 13:00 Dose: 10 mg Miscellaneous (Amikacin Iv Per Pharmacy) 1 ea MC PRN PRN PRN Reason: PROTOCOL Stop: 07/12/18 15:36 Ondansetron HCl (Zofran) 4 mg IV Q8H PRN PRN Reason: Nausea / Vomiting Stop: 07/10/18 19:23 Pantoprazole Sodium (Protonix) 40 mg IVP BID [facility] Stop: 07/11/18 08:59 Last Admin: 05/17/18 10:42 Dose: Not Given Petrolatum (Vaseline Oint) 1 appl TP BID [facility] Stop: 07/16/18 16:59 Simvastatin (Zocor) 20 mg PO HS [facility]; Protocol Stop: 07/10/18 20:59 Last Admin: 05/16/18 21:07 Dose: 20 mg Sucralfate (Carafate) 1 gm GT QID [facility] Stop: 07/10/18 20:59 Last Admin: 05/17/18 13:00 Dose: 1 gm Zinc Sulfate (Zinc Sulfate) 220 mg GT DAILY [facility] Stop: 07/11/18 08:59 Last Admin: 05/17/18 10:42 Dose: Not Given - Procedures Procedures: Procedures Procedure Code Date AIRWAYS SURGICAL PROCEDURE 85180 03/03/16 BLOOD TRANSFUSION SERVICE 11320 09/27/17 CHANGE FEEDING DEVICE IN UP INTEST TRACT, CUB REPORTER APPROACH [id number] 12/10/16 CHANGE GASTROSTOMY TUBE 35881 06/06/13 CONTINUOUS INVASIVE MECHANICAL VENTILATION <96 CONSEC HRS 96.71 02/02/13 CONTINUOUS INVASIVE MECHANICAL VENTILATION =/>96 CONSEC HRS 96.72 06/06/13 [place] [address] 03/03/16 IMMUNIZATION ADMIN 03969 03/03/16 INFLUENZA VACCINATION 99.52 02/02/13 INSERT NON-TUNNEL CV CATH 45899 03/03/16 INSERTION OF INFUSION DEV INTO SUP VENA CAVA, PERC APPROACH [id number] 03/03/16 INSJ PICC 5 YR+ W/O IMAGING 03249 02/02/13 INTRODUCTION OF SERUM/TOX/VACCINE INTO MUSCLE, PERC APPROACH [id number] 03/03/16 OTHER GASTROSTOMY 43.19 06/03/10 REPLACE GASTROSTOMY TUBE 97.02 06/06/13 RESPIRATORY VENTILATION, GREATER THAN 96 CONSECUTIVE HOURS [id number] 05/11/18 TRANSFUSE NONAUT RED BLOOD CELLS IN PERIPH VEIN, PERC 58301V9 09/27/17 VACCINATION NEC 99.55 02/02/13 VENOUS CATHETERIZATION NEC 38.93 02/02/13 VENT MGMT INPAT INIT DAY 91876 03/03/16 VENT MGMT INPAT SUBQ DAY 62343 03/03/16 Nutritional Asmnt/Malnutr-PDOC - Dietary Evaluation Malnutrition Findings (Please click <Entered> for more info): Nutritional Asmnt/Malnutrition Start: 05/12/18 14: 39 Text: Status: Complete Freq: Protocol: Document 05/12/18 14:39 RHAQUE (Rec: 05/12/18 14:59 RHAQUE [id number]) Nutritional Asmnt/Malnutrition Patient General Information Nutritional Screening High Risk Consult Diagnosis UTI, GI bleed Pertinent Medical Hx/Surgical Hx Ventilator dependent Resp failure, Parkinson's, Seizure, Dementia, Chronic Hydrocephalus w INSTRUCTOR WEAVING shunt, DM, Decubitus Ulcer, Subjective Information Consult received for Blood Glucose 233 with Hx of DM while on TF. Pt is trached to a ventilator. Current TF provides 1300ml/day volume, 1560 kcal/day, 78g Protein/ day. 1047 ml water total. Current Diet Order/ Nutrition Support Tube feeding Glucerna 1.2 65ml /hr x 20hrs Patient / S.O Not Indicated Pertinent Medications Docusate, Gemfibrozil, Insulin Aspart, Insulin Novolin, Lactulose, Synthroid, Metoclopramide, Ondansetron, Simvastatin Pertinent Labs (05/12) BUN 65, Na+ 135, Gluc 214, POC Gluc 241 Nutritional Hx/Data Height 1.63 m Height (Calculated Centimeters) 162.6 Current Weight (lbs) 78.018 kg Weight (Calculated Kilograms) 78.0 Weight (Calculated Grams) 07303.9 [place] Body Weight 120 % [place] Body Weight 135 Body Mass Index (BMI) 29.5 GI Symptoms Last BM No Noted B.M. Cultural/Ethnic/Muslim Belief None indicated Skin Integrity/Comment: Germán Score 12. On Nursing flowsheet, pressure ulcer on coccyx noted. No wound care note. Unknown stage. Current %PO Negligible < 25% Estimated Nutritional Goals BEE in Kcals: Adj wt of IBW Calories/Kcals/Kg 25-30 Kcals Calculated 3616-4518 Protein: Adj wt of IBW Protein g/k.2-1.5 Protein Calculated 72-90 Fluid: ml 1706-8408 Nutritional Problem 1. Problem Problem Altered Nutritional related Lab values Etiology Uncontrolled hyperglycemia aeb Signs/Symptoms: (05/12) Gluc 214, POC Gluc 241 Malnutrition Alert Is there a minimum of two criteria No selected? Query Text:Check all the applicable criteria. A minimum of two criteria are recommended for diagnosis of either severe or non-severe malnutrition. Malnutrition Related to Morbid Obesity Malnutrition related to morbid obesity No Intervention/Recommendation Comments Continue Tube feeding as ordered. Pt already on DM tube feeding formula. MD to modify insulin regimen as needed for optimal glycemic control. Will modify nutrient needs based on wound care notes. Expected Outcomes/Goals Expected Outcomes/Goals 1. Labs WNL 2. Tube feeding continue to be tolerated 3. F/U in 2-3 days as HR (05/14 -)
[2018-05-17] MEDS: Petrolatum (White) Oint 0.6 Oz Tube TP SCH (17:48)
[2018-05-17] MEDS ORDERED: Atropine Sulfate 1 mg/mL 1 mL Vial IVP PRN (22:32)
--- NOTE | 2018-05-17 23:15 | Operative Report ---
DATE OF SURGERY: 05/17/2018 PREOPERATIVE DIAGNOSES: Gross hematuria, not controlled with irrigation and antibiotics, requiring blood transfusion. POSTOPERATIVE DIAGNOSIS: Hemorrhagic cystitis. SURGEON: Zaria Natarajan M.D. NAME OF PROCEDURE: Cystoscopy and control of bleeding by fulguration and evacuation of clots under general anesthesia. HISTORY OF PRESENT ILLNESS: The patient is an 82-year-old woman with multiple medical problems and DNR status as well. She came in with gross hematuria and urinary tract infection resistant to most antibiotics. She was given amikacin and piperacillin, but without much help for the bleeding. Ultimately, a cystoscopy was recommended after observing the patient for 48 hours without much improvement. FINDINGS: Cystoscopy revealed hemorrhagic cystitis, mostly located on the posterior wall and the dome. Posterior wall area was fulgurated as it was most prominent, the dome was not. The rest of the bladder was clean without tumors or stones. Few small clots were irrigated out as well to improve the bleeding. Blood loss was less than 5-10 mL intraoperatively. There were no complications. PROCEDURE: The patient was brought to the operating room, prepped and draped in the dorsal lithotomy position after general anesthesia was given. After dilating the meatus, cystoscope was introduced and bladder was irrigated out free of a few small clots. Then, a cystoscopy was carried out with the 30 and 70-degree lenses and the bladder examined extensively without finding any definitive source of bleeding like a tumor or stone. There were two areas patchy on the posterior wall and the dome that were hemorrhagic looking and may be the source of the bleeding. The posterior wall area was more prominent and was fulgurated with a Bugbee electrode and then, the bladder was drained and a 3-way Morfin placed. It was then irrigated and continuous bladder irrigation started as well. The patient returned to recovery in stable condition without any complications. Blood loss, again less than 10 mL. JOB# [id number]
[2018-05-18] MEDS: INSULIN ASPART, RECOMBINANT 100 UNITS/ML SUBQ SCH ×4 (00:07→17:48)
[2018-05-18] MEDS: Albuterol/Ipratropium Neb 3 ML AERS HHN SCH ×4 (01:03→18:58)
[2018-05-18] MEDS: Piperacillin Sodium/Tazobact 2.25 GM in Sodium Chloride 0.9% 100 ML IV SCH ×3 (05:54→20:17)
[2018-05-18 07:01] LABS: LYMPHOCYTE ABSOLUTE 1.1 Th/cmm (1.5-3.0)
[2018-05-18 07:07] LABS: % BASOPHILS 0.3 % (0.0-2.0); % EOSINOPHILS 3.7 % (0.0-5.0); % LYMPHOCYTES 12.1 % (20.0-50.0); % MONOCYTES 5.2 % (2.0-10.0); % NEUTROPHILS 78.7 % (40.0-80.0); EOSINOPHILE ABSOLUTE 0.3 Th/cmm (0.1-0.4); HEMATOCRIT 27.3 % (41.0-60); HEMOGLOBIN 9.1 gm/dL (12-16); MEAN CELL VOLUME 82.7 fl (81-100); MEAN CORPUSCULAR HEMOGLOBIN 27.5 pg (27.0-31.0); MEAN CORPUSCULAR HGB CONC 33.2 pg (28.0-36.0); MEAN PLATELET VOLUME 7.4 fl; MONOCYTE ABSOLUTE 0.5 Th/cmm (0.3-1.0); NEUTROPHILE ABSOLUTE 7.2 Th/cmm (1.8-8.0); PLATELET COUNT 311 Th/cmm (150-400); RED CELL DISTRIBUTION WIDTH 15.6 % (11.5-20.0); WHITE BLOOD COUNT 9.1 Th/cmm (4.8-10.8)
[2018-05-18 07:17] LABS: ANION GAP 12.5 (7.0-16.0); BUN - UREA NITROGEN 19 mg/dL (7-25); CALCIUM SERUM 8.5 mg/dL (8.6-10.3); CARBON DIOXIDE 19.7 mEq/L (21.0-31.0); CHLORIDE 113 mEq/L (98-107); CREATININE - SERUM 0.8 mg/dL (0.6-1.2); GLUCOSE 170 mg/dL (70-105); POTASSIUM SERUM 4.2 mEq/L (3.5-5.1); SODIUM SERUM 141 mEq/L (136-145)
[2018-05-18] MEDS: Levetiracetam 500 mg/5mL 5mL UDSyr *for ORAL USE ONLY GT SCH ×2 (08:27→20:15)
[2018-05-18] MEDS: Multivitamin w/ Minerals Tab GT SCH (08:28)
[2018-05-18] MEDS: Petrolatum (White) Oint 0.6 Oz Tube TP SCH ×2 (08:28→17:48)
[2018-05-18] MEDS: Ferrous Sulfate 300 MG/5 ML UDC GT SCH (08:28)
[2018-05-18] MEDS: Levothyroxine 0.1 Mg Tab GT SCH (08:29)
[2018-05-18] MEDS: Lactobacillus Rhamnosus GG 15 Billion CFU CAP.SPRINK GT SCH (08:29)
[2018-05-18] MEDS: Benztropine 1 MG TAB GT SCH ×2 (08:29→16:42)
[2018-05-18] MEDS: Chlorhexidine Gluconate 0.12% 15mL Mouthwash MM SCH ×2 (08:30→20:21)
[2018-05-18] MEDS: INSULIN 70/30 100 UNITS/ML SUBQ SCH ×2 (08:34→20:22)
--- NOTE | 2018-05-18 13:16 | Internal Medicine Prog Note ---
Internal Medicine Subjective - Subjective Patient seen and examined:: with staff, chart reviewed Patient is:: asleep, non-verbal, non-interactive, eyes closed, in bed, congested Patient Complaints of:: congestion Per staff patient has:: no adverse event, no episodes of fall, tolerating meds Internal Medicine Objective - Results Result Diagrams: 05/18/18 06:36 05/18/18 06:36 Recent Labs: Laboratory Last Values WBC 9.1 Th/cmm (4.8-10.8) 05/18/18 06:36 RBC 3.30 Mil/cmm (3.80-5.20) L 05/18/18 06:36 Hgb 9.1 gm/dL (12-16) L 05/18/18 06:36 Hct 27.3 % (41.0-60) L 05/18/18 06:36 MCV 82.7 fl (81-100) 05/18/18 06:36 MCH 27.5 pg (27.0-31.0) 05/18/18 06:36 MCHC Differential 33.2 pg (28.0-36.0) 05/18/18 06:36 RDW 15.6 % (11.5-20.0) 05/18/18 06:36 Plt Count 311 Th/cmm (150-400) 05/18/18 06:36 MPV 7.4 fl 05/18/18 06:36 Add Manual Diff YES 05/15/18 04:20 Neutrophils % 78.7 % (40.0-80.0) 05/18/18 06:36 Band Neutrophils % 0 % (0-10) 05/15/18 04:20 Lymphocytes % 12.1 % (20.0-50.0) L 05/18/18 06:36 Monocytes % 5.2 % (2.0-10.0) 05/18/18 06:36 Eosinophils % 3.7 % (0.0-5.0) 05/18/18 06:36 Basophils % 0.3 % (0.0-2.0) 05/18/18 06:36 Neutrophils (Manual) 80 % (40-80) 05/15/18 04:20 Lymphocytes 14 % (20-50) L 05/15/18 04:20 Monocytes 6 % (2-10) 05/15/18 04:20 Eosinophils 2 % (0-5) 05/12/18 07:10 Basophils 0 % (0-3) 05/12/18 07:10 PT 10.8 SECONDS (9.5-11.5) 05/17/18 04:35 INR 1.04 (0.5-1.4) 05/17/18 04:35 PTT (Actin FS) 26.2 SECONDS (26.0-38.0) 05/17/18 04:35 Sodium 141 mEq/L (136-145) 05/18/18 06:36 Potassium 4.2 mEq/L (3.5-5.1) 05/18/18 06:36 Chloride 113 mEq/L (98-107) H 05/18/18 06:36 Carbon Dioxide 19.7 mEq/L (21.0-31.0) L 05/18/18 06:36 Anion Gap 12.5 (7.0-16.0) 05/18/18 06:36 BUN 19 mg/dL (7-25) 05/18/18 06:36 Creatinine 0.8 mg/dL (0.6-1.2) 05/18/18 06:36 Est GFR ( Amer) TNP 05/18/18 06:36 Est GFR (Non-Af Amer) TNP 05/18/18 06:36 BUN/Creatinine Ratio 23.8 05/18/18 06:36 Glucose 170 mg/dL (70-105) H 05/18/18 06:36 POC Glucose 128 MG/DL (70 - 105) H 05/18/18 11:54 Whole Bld Lactic Acid 1.45 mmol/L (0.60-1.99) 05/11/18 15:45 Calcium 8.5 mg/dL (8.6-10.3) L 05/18/18 06:36 Phosphorus 3.9 mg/dL (2.5-5.0) 05/11/18 15:45 Magnesium 2.7 mg/dL (1.9-2.7) 05/11/18 15:45 Iron 49 ug/dL (27-139) 05/12/18 07:10 TIBC 264 ug/dL (250-450) 05/12/18 07:10 Iron Saturation 19 % (15-55) 05/12/18 07:10 Unsaturated IBC 215 ug/dL (118-369) 05/12/18 07:10 Total Bilirubin 0.3 mg/dL (0.3-1.0) 05/11/18 15:45 AST 13 U/L (13-39) 05/11/18 15:45 ALT 10 U/L (7-52) 05/11/18 15:45 Alkaline Phosphatase 81 U/L (34-104) 05/11/18 15:45 Ammonia 59 umol/L (16-53) H 05/13/18 04:10 B-Natriuretic Peptide 84.7 pg/mL (5.0-100.0) 05/14/18 04:35 Total Protein 8.3 gm/dL (6.0-8.3) 05/11/18 15:45 Albumin 3.6 gm/dL (3.7-5.3) L 05/11/18 15:45 Globulin 4.7 gm/dL 05/11/18 15:45 Albumin/Globulin Ratio 0.8 (1.0-1.8) L 05/11/18 15:45 Vitamin B12 1516 pg/mL (232-1245) H 05/12/18 07:10 Folic Acid >20.0 ng/mL (>3.0) 05/12/18 07:10 TSH 1.25 uIU/ml (0.34-5.60) 05/11/18 15:45 Urine Source CATH 05/11/18 16:50 Urine Color BROWN 05/11/18 16:50 Urine Clarity CLOUDY (CLEAR) H 05/11/18 16:50 Urine pH 7.0 (4.6 - 8.0) 05/11/18 16:50 Ur Specific [place] 1.010 (1.005-1.030) 05/11/18 16:50 Urine Protein 100 mg/dL (NEGATIVE) H 05/11/18 16:50 Urine Glucose (UA) NEGATIVE mg/dL (NEGATIVE) 05/11/18 16:50 Urine Ketones NEGATIVE mg/dL (NEGATIVE) 05/11/18 16:50 Urine Blood LARGE (NEGATIVE) H 05/11/18 16:50 Urine Nitrate NEGATIVE (NEGATIVE) 05/11/18 16:50 Urine Bilirubin SMALL (NEGATIVE) H 05/11/18 16:50 Urine Urobilinogen 0.2 E.U./dL (0.2 - 1.0) 05/11/18 16:50 Ur Leukocyte Esterase LARGE (NEGATIVE) H 05/11/18 16:50 Urine RBC 25-50 /hpf (0-5) H 05/11/18 16:50 Urine WBC 50-100 /hpf (0-5) H 05/11/18 16:50 Ur Epithelial Cells MODERATE /lpf (FEW) 05/11/18 16:50 Urine Bacteria 4+ /hpf (NONE SEEN) H 05/11/18 16:50 Amikacin Peak 27.9 ug/mL (20.0-30.0) 05/15/18 16:40 Amikacin Trough 6.4 ug/mL (1.0-8.0) 05/15/18 13:50 Urine Opiates Screen POSITIVE (NEGATIVE) H 05/11/18 16:50 Urine Methadone Screen NEGATIVE (NEGATIVE) 05/11/18 16:50 Ur Barbiturates Screen NEGATIVE (NEGATIVE) 05/11/18 16:50 Ur Tricyclics Screen NEGATIVE (NEGATIVE) 05/11/18 16:50 Levetiracetam 51.3 ug/mL (10.0-40.0) H 05/11/18 15:45 Ur Phencyclidine Scrn NEGATIVE (NEGATIVE) 05/11/18 16:50 Amphetamines Screen NEGATIVE (NEGATIVE) 05/11/18 16:50 U Methamphetamines Scrn NEGATIVE (NEGATIVE) 05/11/18 16:50 U Benzodiazepines Scrn NEGATIVE (NEGATIVE) 05/11/18 16:50 U Cocaine Metab Screen NEGATIVE (NEGATIVE) 05/11/18 16:50 U Cannabinoids Screen NEGATIVE (NEGATIVE) 05/11/18 16:50 Blood Type A POSITIVE 05/16/18 09:30 Rho(D) Type Cancelled 05/11/18 16:48 Antibody Screen NEGATIVE 05/16/18 09:30 Crossmatch See Detail 05/16/18 09:30 BBK History Checked Cancelled 05/11/18 16:48 - Physical Exam Vitals and I&O: Vital Signs Temp 97.4 F 05/18/18 10:00 Pulse 67 05/18/18 12:00 Resp 16 05/18/18 12:00 BP 119/54 05/18/18 12:00 Pulse Ox 100 05/18/18 12:00 Intake & Output 05/17/18 05/18/18 05/18/18 18:59 06:59 18:59 Intake Total 100 200 850 Output Total 900 Balance 100 200 -50 Weight (lbs) 83.143 kg Intake: Intake, IV Amount 100 200 Piperacillin Sodium/ 100 200 Tazobact 2.25 gm In Sodium Chloride 0.9% 100 ml @ 100 mls/hr IV Q8HR [facility] Rx#:[id number] Tube Feeding 650 Other 200 Output: Urine 900 Other: # Bowel Movements 1 Stool Characteristics Soft Brown Black Green Weight Source Bedscale Active Medications: Current Medications Acetaminophen (Tylenol 650mg/20.3ml Suspension) 650 mg GT Q6HR PRN PRN Reason: Mild Pain or Fever >101 Stop: 07/10/18 19:13 Last Admin: 05/11/18 21:39 Dose: 650 mg Acetaminophen/Hydrocodone Bitart ([place] 5mg/325mg) 1 tab GT Q6H PRN PRN Reason: Severe Pain Stop: 07/10/18 19:13 Acetylcysteine (Mucomyst 20%) 2 ml HHN Q6HRT [facility] Stop: 07/11/18 00:59 Last Admin: 05/18/18 07:03 Dose: 2 ml Albuterol Sulfate (Albuterol 2.5mg/3ml Neb Ud) 2.5 mg HHN Q2HRT PRN PRN Reason: Shortness of Breath or Wheeze Stop: 07/10/18 19:22 Albuterol/Ipratropium (Duoneb Neb) 3 ml HHN Q6HRT [facility] Stop: 07/11/18 00:59 Last Admin: 05/18/18 07:03 Dose: 3 ml Albuterol/Ipratropium (Duoneb Neb) 3 ml HHN Q2HRT PRN PRN Reason: Wheezing Stop: 07/10/18 19:13 Amlodipine Besylate (Norvasc) 5 mg GT DAILY [facility] Stop: 07/11/18 08:59 Last Admin: 05/18/18 08:29 Dose: 5 mg Atropine Sulfate (Atropine) 1 mg IVP Q4H PRN PRN Reason: Cardiac Arrhythmia (HR < 35) Stop: 07/16/18 22:31 Benztropine Mesylate (Cogentin) 1 mg GT BID [facility] Stop: 07/11/18 08:59 Last Admin: 05/18/18 08:29 Dose: 1 mg Carbidopa/Levodopa (Sinemet 25mg-100 Mg) 1 tab GT DAILY [facility] Stop: 07/11/18 08:59 Last Admin: 05/18/18 08:28 Dose: 1 tab Chlorhexidine Gluconate (Peridex) 15 ml MM 0800,2000 [facility] Stop: 07/10/18 19:59 Last Admin: 05/18/18 08:30 Dose: 15 ml Clonazepam (Klonopin) 0.5 mg GT BID [facility]; Protocol Stop: 07/11/18 08:59 Last Admin: 05/18/18 08:28 Dose: 0.5 mg Docusate Sodium (Colace) 250 mg PO BID [facility] Stop: 07/11/18 08:59 Last Admin: 05/18/18 08:28 Dose: 250 mg Enalaprilat (Vasotec) 1.25 mg IVP Q6H PRN PRN Reason: SBP ABOVE 160 Stop: 07/16/18 22:31 Last Admin: 05/17/18 23:58 Dose: 1.25 mg Ferrous Sulfate (Iron) 330 mg GT DAILY [facility] Stop: 07/11/18 08:59 Last Admin: 05/18/18 08:28 Dose: 330 mg Gemfibrozil (Lopid) 600 mg GT BID [facility] Stop: 07/11/18 08:59 Last Admin: 05/18/18 08:30 Dose: Not Given Sodium Chloride (Nacl 0.9%) 1,000 mls @ 80 mls/hr IV .[id number] [facility] Stop: 07/10/18 19:29 Last Admin: 05/17/18 14:50 Dose: 80 mls/hr Piperacillin Sod/Tazobactam (Sod 2.25 gm/ Sodium Chloride) 100 mls @ 100 mls/ hr IV Q8HR [facility] Stop: 07/10/18 20:59 Last Admin: 05/18/18 12:10 Dose: 100 mls/hr Amikacin Sulfate 500 mg/ (Dextrose) 102 mls @ 200 mls/hr IV Q24HR [facility] Stop: 07/13/18 14:59 Last Admin: 05/17/18 15:00 Dose: 200 mls/hr Insulin Aspart (Novolog) 0 units SUBQ Q6H [facility]; Protocol Stop: 07/11/18 00:00 Last Admin: 05/18/18 12:04 Dose: Not Given Insulin Human Isoph/Insulin Regular (Novolin 70/30) 22 units SUBQ HS [facility]; Protocol Stop: 07/10/18 20:59 Last Admin: 05/17/18 20:45 Dose: 22 units Insulin Human Isoph/Insulin Regular (Novolin 70/30) 45 units SUBQ DAILY [facility]; Protocol Stop: 07/11/18 08:59 Last Admin: 05/18/18 08:34 Dose: 45 units Ipratropium [place] (Atrovent Neb 0.5mg/2.5ml) 0.5 mg HHN Q2HRT PRN PRN Reason: Shortness of Breath or Wheeze Stop: 07/10/18 19:22 Lactobacillus Rhamnosus (Culturelle 15b) 1 each GT DAILY [facility] Stop: 07/11/18 08:59 Last Admin: 05/18/18 08:29 Dose: 1 each Lactulose (Cephulac) 20 gm GT PRN PRN PRN Reason: BOWEL MANAGEMENT Stop: 07/10/18 19:13 Levetiracetam (Keppra) 1,000 mg GT Q12HR [facility] Stop: 07/11/18 08:59 Last Admin: 05/18/18 08:27 Dose: 1,000 mg Levothyroxine Sodium (Synthroid) 0.1 mg GT QDAC [facility] Stop: 07/11/18 07:29 Last Admin: 05/18/18 08:29 Dose: 0.1 mg Lorazepam (Ativan) 1 mg IV Q4H PRN; Protocol PRN Reason: Seizure Stop: 07/10/18 19:22 Metoclopramide HCl (Reglan) 10 mg GT Q8HR [facility] Stop: 07/12/18 12:59 Last Admin: 05/18/18 12:10 Dose: 10 mg Miscellaneous (Amikacin Iv Per Pharmacy) 1 ea MC PRN PRN PRN Reason: PROTOCOL Stop: 07/12/18 15:36 Ondansetron HCl (Zofran) 4 mg IV Q8H PRN PRN Reason: Nausea / Vomiting Stop: 07/10/18 19:23 Pantoprazole Sodium (Protonix) 40 mg IVP BID [facility] Stop: 07/11/18 08:59 Last Admin: 05/18/18 08:29 Dose: 40 mg Petrolatum (Vaseline Oint) 1 appl TP BID [facility] Stop: 07/16/18 16:59 Last Admin: 05/18/18 08:28 Dose: 1 appl Simvastatin (Zocor) 20 mg PO HS [facility]; Protocol Stop: 07/10/18 20:59 Last Admin: 05/17/18 20:42 Dose: 20 mg Sucralfate (Carafate) 1 gm GT QID [facility] Stop: 07/10/18 20:59 Last Admin: 05/18/18 12:10 Dose: 1 gm Zinc Sulfate (Zinc Sulfate) 220 mg GT DAILY [facility] Stop: 07/11/18 08:59 Last Admin: 05/18/18 08:28 Dose: 220 mg General: congested, demented, obtunded HEENT: NC/AT, PERRLA Neck: Supple, No JVD, No LAD, + trach, deformity Lungs: congested, rales, ronchi Cardiovascular: RRR, Normal S1, Normal S2, with murmur Abdomen: soft, globular, +GT, positive bowel sound Extremities: excoriation, contracture, deformity Neurological: no change, unable to follow command, bedbound - Procedures Procedures: Procedures Procedure Code Date AIRWAYS SURGICAL PROCEDURE 21962 03/03/16 BLOOD TRANSFUSION SERVICE 11563 09/27/17 CHANGE FEEDING DEVICE IN UP INTEST TRACT, SQUIRT MACHINE OPERATOR APPROACH [id number] 12/10/16 CHANGE GASTROSTOMY TUBE 00457 06/06/13 CONTINUOUS INVASIVE MECHANICAL VENTILATION <96 CONSEC HRS 96.71 02/02/13 CONTINUOUS INVASIVE MECHANICAL VENTILATION =/>96 CONSEC HRS 96.72 06/06/13 DESTRUCTION OF BLADDER, ENDO [id number] 05/11/18 [place] [address] 03/03/16 IMMUNIZATION ADMIN 12899 03/03/16 INFLUENZA VACCINATION 99.52 02/02/13 INSERT NON-TUNNEL CV CATH 30524 03/03/16 INSERTION OF INFUSION DEV INTO SUP VENA CAVA, PERC APPROACH [id number] 03/03/16 INSJ PICC 5 YR+ W/O IMAGING 32085 02/02/13 INTRODUCTION OF SERUM/TOX/VACCINE INTO MUSCLE, PERC APPROACH [id number] 03/03/16 OTHER GASTROSTOMY 43.19 06/03/10 REPLACE GASTROSTOMY TUBE 97.02 06/06/13 RESPIRATORY VENTILATION, GREATER THAN 96 CONSECUTIVE HOURS [id number] 05/11/18 TRANSFUSE NONAUT RED BLOOD CELLS IN PERIPH VEIN, PERC [id number] 09/27/17 VACCINATION NEC 99.55 02/02/13 VENOUS CATHETERIZATION NEC 38.93 02/02/13 VENT MGMT INPAT INIT DAY 03/03/16 VENT MGMT INPAT SUBQ DAY 03/03/16 Internal Medicine Assmt/Plan - Assessment Assessment: ASSESSMENT: Anemia, which is severe, possibly secondary to a GI source versus hematuria from uti/sepsis, possible pneumonia, urinary tract infection, ventilator dependent respiratory failure, chronic hydrocephalus, dementia, decubitus ulcer, diabetes, obesity, Parkinson, leukocytosis, renal insufficiency, hyponatremia. bradycardia - Plan Plan: PLAN: We will continue the patient on aggressive IV hydration and IV antibiotic. We will certainly give the patient vancomycin as well as Zosyn. We will hold the patient for blood transfusion. We will send for iron studies as well. We will discontinue aspirin as well as nonsteroidal anti-inflammatory drugs. We will continue to monitor the patient in ICU setting. 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 Pt is trached to a ventilator. Current TF provides 1300ml/day volume, 1560 kcal/day, 78g Protein/ day. 1047 ml water total. Current Diet Order/ Nutrition Support Tube feeding Glucerna 1.2 65ml /hr x 20hrs Patient / S.O Not Indicated Pertinent Medications Docusate, Gemfibrozil, Insulin Aspart, Insulin Novolin, Lactulose, Synthroid, Metoclopramide, Ondansetron, Simvastatin Pertinent Labs (05/12) BUN 65, Na+ 135, Gluc 214, POC Gluc 241 Nutritional Hx/Data Height 1.63 m Height (Calculated Centimeters) 162.6 Current Weight (lbs) 78.018 kg Weight (Calculated Kilograms) 78.0 Weight (Calculated Grams) 40937.9 [place] Body Weight 120 % [place] Body Weight 135 Body Mass Index (BMI) 29.5 GI Symptoms Last BM No Noted B.M. Cultural/Ethnic/Orthodox Belief None indicated Skin Integrity/Comment: Germán Score 12. On Nursing flowsheet, pressure ulcer on coccyx noted. No wound care note. Unknown stage. Current %PO Negligible < 25% Estimated Nutritional Goals BEE in Kcals: Adj wt of IBW Calories/Kcals/Kg 25-30 Kcals Calculated 5135-1385 Protein: Adj wt of IBW Protein g/k.2-1.5 Protein Calculated 72-90 Fluid: ml 5806-1626 Nutritional Problem 1. Problem Problem Altered Nutritional related Lab values Etiology Uncontrolled hyperglycemia aeb Signs/Symptoms: (05/12) Gluc 214, POC Gluc 241 Malnutrition Alert Is there a minimum of two criteria No selected? Query Text:Check all the applicable criteria. A minimum of two criteria are recommended for diagnosis of either severe or non-severe malnutrition. Malnutrition Related to Morbid Obesity Malnutrition related to morbid obesity No Intervention/Recommendation Comments Continue Tube feeding as ordered. Pt already on DM tube feeding formula. MD to modify insulin regimen as needed for optimal glycemic control. Will modify nutrient needs based on wound care notes. Expected Outcomes/Goals Expected Outcomes/Goals 1. Labs WNL 2. Tube feeding continue to be tolerated 3. F/U in 2-3 days as HR (05/14 -)
[2018-05-18] MEDS ORDERED: Probiotic Screen MC PRN (15:13)
[2018-05-18] MEDS: Amikacin 500 mg in D5W 100mL (Q24HR) IV SCH (15:31)
[2018-05-18] MEDS: Lactobacillus Rhamnosus GG 15 Billion CFU CAP.SPRINK PO SCH (15:48)
[2018-05-18] MEDS: Theophylline 80 mg/15 mL UDC GT SCH (16:41)
[2018-05-19] MEDS: Sodium Chloride 0.9% 1,000 ML IV SCH (00:10)
[2018-05-19] MEDS: INSULIN ASPART, RECOMBINANT 100 UNITS/ML SUBQ SCH ×4 (00:12→19:38)
[2018-05-19] MEDS: Albuterol/Ipratropium Neb 3 ML AERS HHN SCH ×4 (01:06→19:15)
[2018-05-19] MEDS: Piperacillin Sodium/Tazobact 2.25 GM in Sodium Chloride 0.9% 100 ML IV SCH ×3 (04:13→21:00)
[2018-05-19 05:01] LABS: % BASOPHILS 0.4 % (0.0-2.0); % EOSINOPHILS 3.2 % (0.0-5.0); % LYMPHOCYTES 12.7 % (20.0-50.0); % MONOCYTES 4.7 % (2.0-10.0); EOSINOPHILE ABSOLUTE 0.3 Th/cmm (0.1-0.4); HEMATOCRIT 25.4 % (41.0-60); HEMOGLOBIN 8.2 gm/dL (12-16); LYMPHOCYTE ABSOLUTE 1.1 Th/cmm (1.5-3.0); MEAN CELL VOLUME 84.1 fl (81-100); MEAN CORPUSCULAR HEMOGLOBIN 27.2 pg (27.0-31.0); MEAN CORPUSCULAR HGB CONC 32.3 pg (28.0-36.0); MEAN PLATELET VOLUME 7.4 fl; MONOCYTE ABSOLUTE 0.4 Th/cmm (0.3-1.0); NEUTROPHILE ABSOLUTE 6.6 Th/cmm (1.8-8.0); PLATELET COUNT 337 Th/cmm (150-400); RED BLOOD COUNT 3.02 Mil/cmm (3.80-5.20); WHITE BLOOD COUNT 8.4 Th/cmm (4.8-10.8)
[2018-05-19 05:18] LABS: BUN - UREA NITROGEN 16 mg/dL (7-25); CALCIUM SERUM 8.3 mg/dL (8.6-10.3); CARBON DIOXIDE 18.1 mEq/L (21.0-31.0); CHLORIDE 112 mEq/L (98-107); CREATININE - SERUM 0.8 mg/dL (0.6-1.2); GLUCOSE 151 mg/dL (70-105); MAGNESIUM 2.2 mg/dL (1.9-2.7); POTASSIUM SERUM 4.1 mEq/L (3.5-5.1); SODIUM SERUM 141 mEq/L (136-145)
[2018-05-19] MEDS: Levothyroxine 0.1 Mg Tab GT SCH (06:35)
--- NOTE | 2018-05-19 09:25 | Diagnostic Imaging Report ---
Exam: Chest x-ray HISTORY: Shortness of breath Findings: Frontal examination of chest reviewed the study compared to previous 05/11/2018 demonstrates cardiomegaly congestion. There is evidence for left basilar atelectasis is pleural thickening. Right basilar atelectasis is noted. Bony thorax intact. Tracheostomy tube midline. IMPRESSION: Cardiomegaly, congestion. Left basilar atelectasis pleural thickening small effusion cannot be excluded. Right basilar atelectasis. Follow-up exam is recommended.
--- NOTE | 2018-05-19 11:04 | Internal Medicine Prog Note ---
Internal Medicine Subjective - Subjective Service Date: 05/19/18 Patient is:: asleep, non-verbal, non-interactive, eyes closed, in bed, congested Patient Complaints of:: congestion Per staff patient has:: no adverse event, no episodes of fall, tolerating meds Internal Medicine Objective - Results Result Diagrams: 05/19/18 04:25 05/19/18 04:25 Recent Labs: Laboratory Last Values WBC 8.4 Th/cmm (4.8-10.8) 05/19/18 04:25 RBC 3.02 Mil/cmm (3.80-5.20) L 05/19/18 04:25 Hgb 8.2 gm/dL (12-16) L 05/19/18 04:25 Hct 25.4 % (41.0-60) L 05/19/18 04:25 MCV 84.1 fl (81-100) 05/19/18 04:25 MCH 27.2 pg (27.0-31.0) 05/19/18 04:25 MCHC Differential 32.3 pg (28.0-36.0) 05/19/18 04:25 RDW 16.0 % (11.5-20.0) 05/19/18 04:25 Plt Count 337 Th/cmm (150-400) 05/19/18 04:25 MPV 7.4 fl 05/19/18 04:25 Add Manual Diff YES 05/15/18 04:20 Neutrophils % 79.0 % (40.0-80.0) 05/19/18 04:25 Band Neutrophils % 0 % (0-10) 05/15/18 04:20 Lymphocytes % 12.7 % (20.0-50.0) L 05/19/18 04:25 Monocytes % 4.7 % (2.0-10.0) 05/19/18 04:25 Eosinophils % 3.2 % (0.0-5.0) 05/19/18 04:25 Basophils % 0.4 % (0.0-2.0) 05/19/18 04:25 Neutrophils (Manual) 80 % (40-80) 05/15/18 04:20 Lymphocytes 14 % (20-50) L 05/15/18 04:20 Monocytes 6 % (2-10) 05/15/18 04:20 Eosinophils 2 % (0-5) 05/12/18 07:10 Basophils 0 % (0-3) 05/12/18 07:10 PT 10.8 SECONDS (9.5-11.5) 05/17/18 04:35 INR 1.04 (0.5-1.4) 05/17/18 04:35 PTT (Actin FS) 26.2 SECONDS (26.0-38.0) 05/17/18 04:35 Sodium 141 mEq/L (136-145) 05/19/18 04:25 Potassium 4.1 mEq/L (3.5-5.1) 05/19/18 04:25 Chloride 112 mEq/L (98-107) H 05/19/18 04:25 Carbon Dioxide 18.1 mEq/L (21.0-31.0) L 05/19/18 04:25 Anion Gap 15.0 (7.0-16.0) 05/19/18 04:25 BUN 16 mg/dL (7-25) 05/19/18 04:25 Creatinine 0.8 mg/dL (0.6-1.2) 05/19/18 04:25 Est GFR ( Amer) TNP 05/19/18 04:25 Est GFR (Non-Af Amer) TNP 05/19/18 04:25 BUN/Creatinine Ratio 20.0 05/19/18 04:25 Glucose 151 mg/dL (70-105) H 05/19/18 04:25 POC Glucose 153 MG/DL (70 - 105) H 05/19/18 06:03 Whole Bld Lactic Acid 1.45 mmol/L (0.60-1.99) 05/11/18 15:45 Calcium 8.3 mg/dL (8.6-10.3) L 05/19/18 04:25 Phosphorus 3.9 mg/dL (2.5-5.0) 05/11/18 15:45 Magnesium 2.2 mg/dL (1.9-2.7) 05/19/18 04:25 Iron 49 ug/dL (27-139) 05/12/18 07:10 TIBC 264 ug/dL (250-450) 05/12/18 07:10 Iron Saturation 19 % (15-55) 05/12/18 07:10 Unsaturated IBC 215 ug/dL (118-369) 05/12/18 07:10 Total Bilirubin 0.3 mg/dL (0.3-1.0) 05/11/18 15:45 AST 13 U/L (13-39) 05/11/18 15:45 ALT 10 U/L (7-52) 05/11/18 15:45 Alkaline Phosphatase 81 U/L (34-104) 05/11/18 15:45 Ammonia 59 umol/L (16-53) H 05/13/18 04:10 B-Natriuretic Peptide 119.0 pg/mL (5.0-100.0) H 05/19/18 04:25 Total Protein 8.3 gm/dL (6.0-8.3) 05/11/18 15:45 Albumin 3.6 gm/dL (3.7-5.3) L 05/11/18 15:45 Globulin 4.7 gm/dL 05/11/18 15:45 Albumin/Globulin Ratio 0.8 (1.0-1.8) L 05/11/18 15:45 Vitamin B12 1516 pg/mL (232-1245) H 05/12/18 07:10 Folic Acid >20.0 ng/mL (>3.0) 05/12/18 07:10 TSH 1.25 uIU/ml (0.34-5.60) 05/11/18 15:45 Urine Source CATH 05/11/18 16:50 Urine Color BROWN 05/11/18 16:50 Urine Clarity CLOUDY (CLEAR) H 05/11/18 16:50 Urine pH 7.0 (4.6 - 8.0) 05/11/18 16:50 Ur Specific Rulo 1.010 (1.005-1.030) 05/11/18 16:50 Urine Protein 100 mg/dL (NEGATIVE) H 05/11/18 16:50 Urine Glucose (UA) NEGATIVE mg/dL (NEGATIVE) 05/11/18 16:50 Urine Ketones NEGATIVE mg/dL (NEGATIVE) 05/11/18 16:50 Urine Blood LARGE (NEGATIVE) H 05/11/18 16:50 Urine Nitrate NEGATIVE (NEGATIVE) 05/11/18 16:50 Urine Bilirubin SMALL (NEGATIVE) H 05/11/18 16:50 Urine Urobilinogen 0.2 E.U./dL (0.2 - 1.0) 05/11/18 16:50 Ur Leukocyte Esterase LARGE (NEGATIVE) H 05/11/18 16:50 Urine RBC 25-50 /hpf (0-5) H 05/11/18 16:50 Urine WBC 50-100 /hpf (0-5) H 05/11/18 16:50 Ur Epithelial Cells MODERATE /lpf (FEW) 05/11/18 16:50 Urine Bacteria 4+ /hpf (NONE SEEN) H 05/11/18 16:50 Amikacin Peak 27.9 ug/mL (20.0-30.0) 05/15/18 16:40 Amikacin Trough 6.4 ug/mL (1.0-8.0) 05/15/18 13:50 Urine Opiates Screen POSITIVE (NEGATIVE) H 05/11/18 16:50 Urine Methadone Screen NEGATIVE (NEGATIVE) 05/11/18 16:50 Ur Barbiturates Screen NEGATIVE (NEGATIVE) 05/11/18 16:50 Ur Tricyclics Screen NEGATIVE (NEGATIVE) 05/11/18 16:50 Levetiracetam 51.3 ug/mL (10.0-40.0) H 05/11/18 15:45 Ur Phencyclidine Scrn NEGATIVE (NEGATIVE) 05/11/18 16:50 Amphetamines Screen NEGATIVE (NEGATIVE) 05/11/18 16:50 U Methamphetamines Scrn NEGATIVE (NEGATIVE) 05/11/18 16:50 U Benzodiazepines Scrn NEGATIVE (NEGATIVE) 05/11/18 16:50 U Cocaine Metab Screen NEGATIVE (NEGATIVE) 05/11/18 16:50 U Cannabinoids Screen NEGATIVE (NEGATIVE) 05/11/18 16:50 Blood Type A POSITIVE 05/16/18 09:30 Rho(D) Type Cancelled 05/11/18 16:48 Antibody Screen NEGATIVE 05/16/18 09:30 Crossmatch See Detail 05/16/18 09:30 BBK History Checked Cancelled 05/11/18 16:48 - Physical Exam Vitals and I&O: Vital Signs Temp 98.2 F 05/19/18 04:00 Pulse 58 05/19/18 09:50 Resp 16 05/19/18 06:00 BP 143/68 05/19/18 06:00 Pulse Ox 100 05/19/18 09:50 Intake & Output 05/18/18 05/19/18 05/19/18 18:59 06:59 18:59 Intake Total 4069 452 0676 Output Total 1200 2375 Balance 205 200 -575 Weight (lbs) 205 lb 1.6 oz 187 lb Intake: Intake, IV Amount 100 200 Piperacillin Sodium/ 100 200 Tazobact 2.25 gm In Sodium Chloride 0.9% 100 ml @ 100 mls/hr IV Q8HR [facility] Rx#:[id number] Tube Feeding 1105 650 Other 200 1150 Output: Urine 1200 1525 Other 850 Other: # Bowel Movements 1 2 Stool Characteristics Soft Brown Black Green Weight Source Bedscale Bedscale Active Medications: Current Medications Acetaminophen (Tylenol 650mg/20.3ml Suspension) 650 mg GT Q6HR PRN PRN Reason: Mild Pain or Fever >101 Stop: 07/10/18 19:13 Last Admin: 05/11/18 21:39 Dose: 650 mg Acetaminophen/Hydrocodone Bitart (Otho 5mg/325mg) 1 tab GT Q6H PRN PRN Reason: Severe Pain Stop: 07/10/18 19:13 Acetylcysteine (Mucomyst 20%) 2 ml HHN Q6HRT [facility] Stop: 07/11/18 00:59 Last Admin: 05/19/18 01:06 Dose: 2 ml Albuterol Sulfate (Albuterol 2.5mg/3ml Neb Ud) 2.5 mg HHN Q2HRT PRN PRN Reason: Shortness of Breath or Wheeze Stop: 07/10/18 19:22 Albuterol/Ipratropium (Duoneb Neb) 3 ml HHN Q6HRT [facility] Stop: 07/11/18 00:59 Last Admin: 05/19/18 07:37 Dose: 3 ml Albuterol/Ipratropium (Duoneb Neb) 3 ml HHN Q2HRT PRN PRN Reason: Wheezing Stop: 07/10/18 19:13 Amlodipine Besylate (Norvasc) 5 mg GT DAILY [facility] Stop: 07/11/18 08:59 Last Admin: 05/18/18 08:29 Dose: 5 mg Atropine Sulfate (Atropine) 1 mg IVP Q4H PRN PRN Reason: Cardiac Arrhythmia (HR < 35) Stop: 07/16/18 22:31 Benztropine Mesylate (Cogentin) 1 mg GT BID [facility] Stop: 07/11/18 08:59 Last Admin: 05/18/18 16:42 Dose: 1 mg Carbidopa/Levodopa (Sinemet 25mg-100 Mg) 1 tab GT DAILY [facility] Stop: 07/11/18 08:59 Last Admin: 05/18/18 08:28 Dose: 1 tab Chlorhexidine Gluconate (Peridex) 15 ml MM 0800,2000 [facility] Stop: 07/10/18 19:59 Last Admin: 05/18/18 20:21 Dose: 15 ml Docusate Sodium (Colace) 250 mg PO BID [facility] Stop: 07/11/18 08:59 Last Admin: 05/18/18 16:41 Dose: 250 mg Enalaprilat (Vasotec) 1.25 mg IVP Q6H PRN PRN Reason: SBP ABOVE 160 Stop: 07/16/18 22:31 Last Admin: 05/17/18 23:58 Dose: 1.25 mg Ferrous Sulfate (Iron) 330 mg GT DAILY [facility] Stop: 07/11/18 08:59 Last Admin: 05/18/18 08:28 Dose: 330 mg Gemfibrozil (Lopid) 600 mg GT BID [facility] Stop: 07/11/18 08:59 Last Admin: 05/18/18 16:42 Dose: 600 mg Sodium Chloride (Nacl 0.9%) 1,000 mls @ 80 mls/hr IV .[id number] [facility] Stop: 07/10/18 19:29 Last Admin: 05/19/18 00:10 Dose: 80 mls/hr Piperacillin Sod/Tazobactam (Sod 2.25 gm/ Sodium Chloride) 100 mls @ 100 mls/ hr IV Q8HR [facility] Stop: 07/10/18 20:59 Last Infusion: 05/19/18 05:15 Dose: Infused Amikacin Sulfate 500 mg/ (Dextrose) 102 mls @ 200 mls/hr IV Q24HR [facility] Stop: 07/13/18 14:59 Last Admin: 05/18/18 15:31 Dose: 200 mls/hr Insulin Aspart (Novolog) 0 units SUBQ Q6H [facility]; Protocol Stop: 07/11/18 00:00 Last Admin: 05/19/18 06:35 Dose: 2 units Insulin Human Isoph/Insulin Regular (Novolin 70/30) 22 units SUBQ HS [facility]; Protocol Stop: 07/10/18 20:59 Last Admin: 05/18/18 20:22 Dose: 22 units Insulin Human Isoph/Insulin Regular (Novolin 70/30) 45 units SUBQ DAILY [facility]; Protocol Stop: 07/11/18 08:59 Last Admin: 05/18/18 08:34 Dose: 45 units Ipratropium Warner (Atrovent Neb 0.5mg/2.5ml) 0.5 mg HHN Q2HRT PRN PRN Reason: Shortness of Breath or Wheeze Stop: 07/10/18 19:22 Lactobacillus Rhamnosus (Culturelle 15b) 1 each GT DAILY [facility] Stop: 07/11/18 08:59 Last Admin: 05/18/18 08:29 Dose: 1 each Lactobacillus Rhamnosus (Culturelle 15b) 1 each PO DAILY [facility] Stop: 07/17/18 15:59 Last Admin: 05/18/18 15:48 Dose: 1 each Lactulose (Cephulac) 20 gm GT PRN PRN PRN Reason: BOWEL MANAGEMENT Stop: 07/10/18 19:13 Levetiracetam (Keppra) 1,000 mg GT Q12HR [facility] Stop: 07/11/18 08:59 Last Admin: 05/18/18 20:15 Dose: 1,000 mg Levothyroxine Sodium (Synthroid) 0.1 mg GT QDAC [facility] Stop: 07/11/18 07:29 Last Admin: 05/19/18 06:35 Dose: 0.1 mg Lorazepam (Ativan) 1 mg IV Q4H PRN; Protocol PRN Reason: Seizure Stop: 07/10/18 19:22 Metoclopramide HCl (Reglan) 10 mg GT Q8HR [facility] Stop: 07/12/18 12:59 Last Admin: 05/19/18 04:13 Dose: 10 mg Miscellaneous (Amikacin Iv Per Pharmacy) 1 ea MC PRN PRN PRN Reason: PROTOCOL Stop: 07/12/18 15:36 Miscellaneous (Probiotic Screen) 1 ea PRN PRN PRN Reason: PROTOCOL Stop: 07/17/18 15:12 Ondansetron HCl (Zofran) 4 mg IV Q8H PRN PRN Reason: Nausea / Vomiting Stop: 07/10/18 19:23 Pantoprazole Sodium (Protonix) 40 mg IVP BID [facility] Stop: 07/11/18 08:59 Last Admin: 05/18/18 16:41 Dose: 40 mg Petrolatum (Vaseline Oint) 1 appl TP BID [facility] Stop: 07/16/18 16:59 Last Admin: 05/18/18 17:48 Dose: 1 appl Simvastatin (Zocor) 20 mg PO HS [facility]; Protocol Stop: 07/10/18 20:59 Last Admin: 05/18/18 20:15 Dose: 20 mg Sucralfate (Carafate) 1 gm GT QID [facility] Stop: 07/10/18 20:59 Last Admin: 05/18/18 20:15 Dose: 1 gm Theophylline (El-Dur) 100 mg GT BID [facility] Stop: 07/17/18 16:59 Last Admin: 05/18/18 16:41 Dose: 100 mg Zinc Sulfate (Zinc Sulfate) 220 mg GT DAILY [facility] Stop: 07/11/18 08:59 Last Admin: 05/18/18 08:28 Dose: 220 mg General: congested, demented, obtunded HEENT: NC/AT, PERRLA Neck: Supple, No JVD, No LAD, + trach, deformity Lungs: congested, rales, ronchi Cardiovascular: RRR, Normal S1, Normal S2, with murmur Abdomen: soft, globular, +GT, positive bowel sound Extremities: excoriation, contracture, deformity Neurological: no change, unable to follow command, bedbound - Procedures Procedures: Procedures Procedure Code Date AIRWAYS SURGICAL PROCEDURE 11565 03/03/16 BLOOD TRANSFUSION SERVICE 33247 09/27/17 CHANGE FEEDING DEVICE IN UP INTEST TRACT, [employer] APPROACH [id number] 12/10/16 CHANGE GASTROSTOMY TUBE 73161 06/06/13 CONTINUOUS INVASIVE MECHANICAL VENTILATION <96 CONSEC HRS 96.71 02/02/13 CONTINUOUS INVASIVE MECHANICAL VENTILATION =/>96 CONSEC HRS 96.72 06/06/13 DESTRUCTION OF BLADDER, ENDO [id number] 05/11/18 [place] [address] 03/03/16 IMMUNIZATION ADMIN 11663 03/03/16 INFLUENZA VACCINATION 99.52 02/02/13 INSERT NON-TUNNEL CV CATH 56072 03/03/16 INSERTION OF INFUSION DEV INTO SUP VENA CAVA, [facility] APPROACH [id number] 03/03/16 INSJ PICC 5 YR+ W/O IMAGING 90482 02/02/13 INTRODUCTION OF SERUM/TOX/VACCINE INTO MUSCLE, [facility] APPROACH [id number] 03/03/16 OTHER GASTROSTOMY 43.19 06/03/10 REPLACE GASTROSTOMY TUBE 97.02 06/06/13 RESPIRATORY VENTILATION, GREATER THAN 96 CONSECUTIVE HOURS [id number] 05/11/18 TRANSFUSE NONAUT RED BLOOD CELLS IN PERIPH VEIN, [facility] [id number] 09/27/17 VACCINATION NEC 99.55 02/02/13 VENOUS CATHETERIZATION NEC 38.93 02/02/13 VENT MGMT INPAT INIT DAY 03/03/16 VENT MGMT INPAT SUBQ DAY 03/03/16 Internal Medicine Assmt/Plan - Assessment Assessment: acute uti with esbl sputum pseudomonas Anemia--severe hematuria possible pneumonia ventilator dependent respiratory failure chronic hydrocephalus, dementia, decubitus ulcer, diabetes, obesity, Parkinson , leukocytosis, renal insufficiency , hyponatremia. - Plan Plan: monitor h/h closely cont vent support follow up labs in am uro is following continue current plan of care Nutritional Asmnt/Malnutr-PDOC - Dietary Evaluation Malnutrition Findings (Please click <Entered> for more info): Nutritional Asmnt/Malnutrition Start: 05/12/18 14: 39 Text: Status: Complete Freq: Protocol: Document 05/12/18 14:39 RHAQUE (Rec: 05/12/18 14:59 RHAQUE [id number]) Nutritional Asmnt/Malnutrition Patient General Information Nutritional Screening High Risk Consult Diagnosis UTI, GI bleed Pertinent Medical Hx/Surgical Hx Ventilator dependent Resp failure, Parkinson's, Seizure, Dementia, Chronic Hydrocephalus w SHIPPING ASSISTANT shunt, DM, Decubitus Ulcer, Subjective Information Consult received for Blood Glucose 233 with Hx of DM while on TF. Pt is trached to a ventilator. Current TF provides 1300ml/day volume, 1560 kcal/day, 78g Protein/ day. 1047 ml water total. Current Diet Order/ Nutrition Support Tube feeding Glucerna 1.2 65ml /hr x 20hrs Patient / S.O Not Indicated Pertinent Medications Docusate, Gemfibrozil, Insulin Aspart, Insulin Novolin, Lactulose, Synthroid, Metoclopramide, Ondansetron, Simvastatin Pertinent Labs (05/12) BUN 65, Na+ 135, Gluc 214, POC Gluc 241 Nutritional Hx/Data Height 5 ft 4 in Height (Calculated Centimeters) 162.6 Current Weight (lbs) 172 lb Weight (Calculated Kilograms) 78.0 Weight (Calculated Grams) 35321.9 [place] Body Weight 120 % [place] Body Weight 135 Body Mass Index (BMI) 29.5 GI Symptoms Last BM No Noted B.M. Cultural/Ethnic/[employer] Belief None indicated Skin Integrity/Comment: Germán Score 12. On Nursing flowsheet, pressure ulcer on coccyx noted. No wound care note. Unknown stage. Current %PO Negligible < 25% Estimated Nutritional Goals BEE in Kcals: Adj wt of IBW Calories/Kcals/Kg 25-30 Kcals Calculated 1535-5717 Protein: Adj wt of IBW Protein g/k.2-1.5 Protein Calculated 72-90 Fluid: ml 2090-2890 Nutritional Problem 1. Problem Problem Altered Nutritional related Lab values Etiology Uncontrolled hyperglycemia aeb Signs/Symptoms: (05/12) Gluc 214, POC Gluc 241 Malnutrition Alert Is there a minimum of two criteria No selected? Query Text:Check all the applicable criteria. A minimum of two criteria are recommended for diagnosis of either severe or non-severe malnutrition. Malnutrition Related to Morbid Obesity Malnutrition related to morbid obesity No Intervention/Recommendation Comments Continue Tube feeding as ordered. Pt already on DM tube feeding formula. MD to modify insulin regimen as needed for optimal glycemic control. Will modify nutrient needs based on wound care notes. Expected Outcomes/Goals Expected Outcomes/Goals 1. Labs WNL 2. Tube feeding continue to be tolerated 3. F/U in 2-3 days as HR (05/14 -)
[2018-05-19] MEDS: Ferrous Sulfate 300 MG/5 ML UDC GT SCH (11:06)
[2018-05-19] MEDS: Multivitamin w/ Minerals Tab GT SCH (11:06)
[2018-05-19] MEDS: Levetiracetam 500 mg/5mL 5mL UDSyr *for ORAL USE ONLY GT SCH ×2 (11:07→20:36)
[2018-05-19] MEDS: Lactobacillus Rhamnosus GG 15 Billion CFU CAP.SPRINK GT SCH (11:08)
[2018-05-19] MEDS: Benztropine 1 MG TAB GT SCH ×2 (11:08→17:16)
[2018-05-19] MEDS: Petrolatum (White) Oint 0.6 Oz Tube TP SCH ×2 (11:09→17:16)
--- NOTE | 2018-05-19 11:28 | Progress Notes ---
DATE: 05/18/2018 SUBJECTIVE: The patient is doing much better after the cystoscopy and fulguration. Urine is very light pink to clear and hemoglobin is stable. Her G-tube feedings were passed this morning because of slightly elevated residual volume of 120 mL and have just been resumed for another trial. OBJECTIVE: VITAL SIGNS: On exam, temperature 97.4, heart rate 61, blood pressure 157/58, respirations 16, saturating 100%. ABDOMEN: Soft, obese, but nondistended and nontender. Morfin catheter, very light urine with irrigation. EXTREMITIES: Trace edema. LABORATORY DATA: Hemoglobin 9.1, white count also 9.1, BUN 19, creatinine 0.8. IMPRESSIO: 1. Gross hematuria, now improved with fulguration. 2. Hemorrhagic cystitis, most likely the cause of the hematuria with irrigations and antibiotics, is now improved as well. 3. Left hydronephrosis needs to be followed by keeping the Morfin indwelling for the next several months and the Morfin to be changed every month, irrigated every 2 days with 200 mL of normal saline to prevent high pressure reflux, infection, and cystitis. 4. Ventilator and G-tube dependency. No change. 5. DNR status remains the same. 6. Diabetes and hypertension quite stable. JOB# [id number]
--- NOTE | 2018-05-19 14:24 | Consultation ---
DATE OF CONSULTATION: 05/18/2018 PATIENT OF: Dr. Garza. HISTORY OF PRESENT ILLNESS: This is an 82-year-old female patient came to the Emergency Room because of hematuria. The patient is on ventilator with tracheostomy. The patient is on clonazepam and when the patient takes it, patient becomes very sleepy and develops bradycardia. PAST MEDICAL HISTORY: Chronic respiratory failure, on ventilator with tracheostomy, hypothyroid, hyperlipidemia, G-tube with protein-calorie malnutrition, iron deficiency anemia, aspiration pneumonia, urinary tract infection, hematuria, dementia, decubitus ulcer, healing, Parkinson's disease, osteoporosis. FAMILY HISTORY: Unremarkable. SOCIAL HISTORY: No history of smoking, alcohol abuse. ALLERGIES: No known allergies. PHYSICAL EXAMINATION: VITAL SIGNS: Blood pressure 130/70, pulse 50, respirations 20. HEAD: Normocephalic. No lumps or bumps. EYES: Pupils equal, reactive to light. Fundi show AV nicking, sclerae white, conjunctivae pink. NECK: Carotid 2+. Normal upstroke. JVD flat. Thyroid not palpable. Lymph nodes not palpable. CHEST: Shows increased AP diameter. No kyphosis, scoliosis. LUNGS: Bilateral bronchovesicular breath sounds. Occasional wheeze. No rales. HEART: PMI fifth intercostal space with lateral to midclavicular line. S1, S2. No S3, S4, sinus bradycardia, asymptomatic. ABDOMEN: Soft. The patient has a PEG in place. NEUROLOGIC: Unremarkable. The patient has contractures. CLINICAL IMPRESSION: 1. Acute respiratory failure on chronic respiratory failure, with ventilator and tracheostomy. 2. Bradycardia. 3. Asymptomatic hypothyroid. 4. Hyperlipidemia. 5. G-tube, with protein-calorie malnutrition. 6. Iron deficiency anemia. 7. Aspiration pneumonia. 8. Urinary tract infection. 9. Hematuria. 10. Dementia. 11. Decubitus ulcer. 12. Parkinson's disease. 13. Osteoporosis. PLAN: We will stop clonazepam. Monitor the patient in ICU. Continue present management. JOB# [id number]
--- NOTE | 2018-05-19 14:37 | General Progress Note ---
Subjective - Review of Systems Service Date: 05/19/18 Subjective: Patient still on ventilator with tracheostomy is congested Objective - Results Result Diagrams: 05/19/18 04:25 05/19/18 04:25 Recent Labs: Laboratory Last Values WBC 8.4 Th/cmm (4.8-10.8) 05/19/18 04:25 RBC 3.02 Mil/cmm (3.80-5.20) L 05/19/18 04:25 Hgb 8.2 gm/dL (12-16) L 05/19/18 04:25 Hct 25.4 % (41.0-60) L 05/19/18 04:25 MCV 84.1 fl (81-100) 05/19/18 04:25 MCH 27.2 pg (27.0-31.0) 05/19/18 04:25 MCHC Differential 32.3 pg (28.0-36.0) 05/19/18 04:25 RDW 16.0 % (11.5-20.0) 05/19/18 04:25 Plt Count 337 Th/cmm (150-400) 05/19/18 04:25 MPV 7.4 fl 05/19/18 04:25 Add Manual Diff YES 05/15/18 04:20 Neutrophils % 79.0 % (40.0-80.0) 05/19/18 04:25 Band Neutrophils % 0 % (0-10) 05/15/18 04:20 Lymphocytes % 12.7 % (20.0-50.0) L 05/19/18 04:25 Monocytes % 4.7 % (2.0-10.0) 05/19/18 04:25 Eosinophils % 3.2 % (0.0-5.0) 05/19/18 04:25 Basophils % 0.4 % (0.0-2.0) 05/19/18 04:25 Neutrophils (Manual) 80 % (40-80) 05/15/18 04:20 Lymphocytes 14 % (20-50) L 05/15/18 04:20 Monocytes 6 % (2-10) 05/15/18 04:20 Eosinophils 2 % (0-5) 05/12/18 07:10 Basophils 0 % (0-3) 05/12/18 07:10 PT 10.8 SECONDS (9.5-11.5) 05/17/18 04:35 INR 1.04 (0.5-1.4) 05/17/18 04:35 PTT (Actin FS) 26.2 SECONDS (26.0-38.0) 05/17/18 04:35 Sodium 141 mEq/L (136-145) 05/19/18 04:25 Potassium 4.1 mEq/L (3.5-5.1) 05/19/18 04:25 Chloride 112 mEq/L (98-107) H 05/19/18 04:25 Carbon Dioxide 18.1 mEq/L (21.0-31.0) L 05/19/18 04:25 Anion Gap 15.0 (7.0-16.0) 05/19/18 04:25 BUN 16 mg/dL (7-25) 05/19/18 04:25 Creatinine 0.8 mg/dL (0.6-1.2) 05/19/18 04:25 Est GFR ( Amer) TNP 05/19/18 04:25 Est GFR (Non-Af Amer) TNP 05/19/18 04:25 BUN/Creatinine Ratio 20.0 05/19/18 04:25 Glucose 151 mg/dL (70-105) H 05/19/18 04:25 POC Glucose 153 MG/DL (70 - 105) H 05/19/18 06:03 Whole Bld Lactic Acid 1.45 mmol/L (0.60-1.99) 05/11/18 15:45 Calcium 8.3 mg/dL (8.6-10.3) L 05/19/18 04:25 Phosphorus 3.9 mg/dL (2.5-5.0) 05/11/18 15:45 Magnesium 2.2 mg/dL (1.9-2.7) 05/19/18 04:25 Iron 49 ug/dL (27-139) 05/12/18 07:10 TIBC 264 ug/dL (250-450) 05/12/18 07:10 Iron Saturation 19 % (15-55) 05/12/18 07:10 Unsaturated IBC 215 ug/dL (118-369) 05/12/18 07:10 Total Bilirubin 0.3 mg/dL (0.3-1.0) 05/11/18 15:45 AST 13 U/L (13-39) 05/11/18 15:45 ALT 10 U/L (7-52) 05/11/18 15:45 Alkaline Phosphatase 81 U/L (34-104) 05/11/18 15:45 Ammonia 59 umol/L (16-53) H 05/13/18 04:10 B-Natriuretic Peptide 119.0 pg/mL (5.0-100.0) H 05/19/18 04:25 Total Protein 8.3 gm/dL (6.0-8.3) 05/11/18 15:45 Albumin 3.6 gm/dL (3.7-5.3) L 05/11/18 15:45 Globulin 4.7 gm/dL 05/11/18 15:45 Albumin/Globulin Ratio 0.8 (1.0-1.8) L 05/11/18 15:45 Vitamin B12 1516 pg/mL (232-1245) H 05/12/18 07:10 Folic Acid >20.0 ng/mL (>3.0) 05/12/18 07:10 TSH 1.25 uIU/ml (0.34-5.60) 05/11/18 15:45 Urine Source CATH 05/11/18 16:50 Urine Color BROWN 05/11/18 16:50 Urine Clarity CLOUDY (CLEAR) H 05/11/18 16:50 Urine pH 7.0 (4.6 - 8.0) 05/11/18 16:50 Ur Specific [place] 1.010 (1.005-1.030) 05/11/18 16:50 Urine Protein 100 mg/dL (NEGATIVE) H 05/11/18 16:50 Urine Glucose (UA) NEGATIVE mg/dL (NEGATIVE) 05/11/18 16:50 Urine Ketones NEGATIVE mg/dL (NEGATIVE) 05/11/18 16:50 Urine Blood LARGE (NEGATIVE) H 05/11/18 16:50 Urine Nitrate NEGATIVE (NEGATIVE) 05/11/18 16:50 Urine Bilirubin SMALL (NEGATIVE) H 05/11/18 16:50 Urine Urobilinogen 0.2 E.U./dL (0.2 - 1.0) 05/11/18 16:50 Ur Leukocyte Esterase LARGE (NEGATIVE) H 05/11/18 16:50 Urine RBC 25-50 /hpf (0-5) H 05/11/18 16:50 Urine WBC 50-100 /hpf (0-5) H 05/11/18 16:50 Ur Epithelial Cells MODERATE /lpf (FEW) 05/11/18 16:50 Urine Bacteria 4+ /hpf (NONE SEEN) H 05/11/18 16:50 Amikacin Peak 27.9 ug/mL (20.0-30.0) 05/15/18 16:40 Amikacin Trough 6.4 ug/mL (1.0-8.0) 05/15/18 13:50 Urine Opiates Screen POSITIVE (NEGATIVE) H 05/11/18 16:50 Urine Methadone Screen NEGATIVE (NEGATIVE) 05/11/18 16:50 Ur Barbiturates Screen NEGATIVE (NEGATIVE) 05/11/18 16:50 Ur Tricyclics Screen NEGATIVE (NEGATIVE) 05/11/18 16:50 Levetiracetam 51.3 ug/mL (10.0-40.0) H 05/11/18 15:45 Ur Phencyclidine Scrn NEGATIVE (NEGATIVE) 05/11/18 16:50 Amphetamines Screen NEGATIVE (NEGATIVE) 05/11/18 16:50 U Methamphetamines Scrn NEGATIVE (NEGATIVE) 05/11/18 16:50 U Benzodiazepines Scrn NEGATIVE (NEGATIVE) 05/11/18 16:50 U Cocaine Metab Screen NEGATIVE (NEGATIVE) 05/11/18 16:50 U Cannabinoids Screen NEGATIVE (NEGATIVE) 05/11/18 16:50 Blood Type A POSITIVE 05/16/18 09:30 Rho(D) Type Cancelled 05/11/18 16:48 Antibody Screen NEGATIVE 05/16/18 09:30 Crossmatch See Detail 05/16/18 09:30 BBK History Checked Cancelled 05/11/18 16:48 - Physical Exam Vitals and I&O: Vital Signs Temp 98.4 F 05/19/18 11:00 Pulse 68 05/19/18 14:00 Resp 16 05/19/18 14:00 BP 140/67 05/19/18 14:00 Pulse Ox 100 05/19/18 13:28 Intake & Output 05/18/18 05/19/18 05/19/18 18:59 06:59 18:59 Intake Total 7923 010 3681 Output Total 1200 2375 Balance 205 200 -473 Weight (lbs) 93.032 kg 84.822 kg Intake: Intake, IV Amount 100 200 102 Amikacin 500 mg In 102 Dextrose 5% 100 ml @ 200 mls/hr IV Q24HR [facility] Rx#: [id number] Piperacillin Sodium/ 100 200 Tazobact 2.25 gm In Sodium Chloride 0.9% 100 ml @ 100 mls/hr IV Q8HR [facility] Rx#:[id number] Tube Feeding 1105 650 Other 200 1150 Output: Urine 1200 1525 Other 850 Other: # Bowel Movements 1 2 Stool Characteristics Soft Brown Black Green Weight Source Bedscale Bedscale Active Medications: Current Medications Acetaminophen (Tylenol 650mg/20.3ml Suspension) 650 mg GT Q6HR PRN PRN Reason: Mild Pain or Fever >101 Stop: 07/10/18 19:13 Last Admin: 05/11/18 21:39 Dose: 650 mg Acetaminophen/Hydrocodone Bitart ([place] 5mg/325mg) 1 tab GT Q6H PRN PRN Reason: Severe Pain Stop: 07/10/18 19:13 Acetylcysteine (Mucomyst 20%) 2 ml HHN Q6HRT [facility] Stop: 07/11/18 00:59 Last Admin: 05/19/18 13:31 Dose: 2 ml Albuterol Sulfate (Albuterol 2.5mg/3ml Neb Ud) 2.5 mg HHN Q2HRT PRN PRN Reason: Shortness of Breath or Wheeze Stop: 07/10/18 19:22 Albuterol/Ipratropium (Duoneb Neb) 3 ml HHN Q6HRT [facility] Stop: 07/11/18 00:59 Last Admin: 05/19/18 13:26 Dose: 3 ml Albuterol/Ipratropium (Duoneb Neb) 3 ml HHN Q2HRT PRN PRN Reason: Wheezing Stop: 07/10/18 19:13 Amlodipine Besylate (Norvasc) 5 mg GT DAILY [facility] Stop: 07/11/18 08:59 Last Admin: 05/19/18 11:05 Dose: 5 mg Atropine Sulfate (Atropine) 1 mg IVP Q4H PRN PRN Reason: Cardiac Arrhythmia (HR < 35) Stop: 07/16/18 22:31 Benztropine Mesylate (Cogentin) 1 mg GT BID [facility] Stop: 07/11/18 08:59 Last Admin: 05/19/18 11:08 Dose: 1 mg Carbidopa/Levodopa (Sinemet 25mg-100 Mg) 1 tab GT DAILY [facility] Stop: 07/11/18 08:59 Last Admin: 05/18/18 08:28 Dose: 1 tab Chlorhexidine Gluconate (Peridex) 15 ml MM 0800,2000 [facility] Stop: 07/10/18 19:59 Last Admin: 05/18/18 20:21 Dose: 15 ml Docusate Sodium (Colace) 250 mg PO BID [facility] Stop: 07/11/18 08:59 Last Admin: 05/19/18 11:08 Dose: 250 mg Enalaprilat (Vasotec) 1.25 mg IVP Q6H PRN PRN Reason: SBP ABOVE 160 Stop: 07/16/18 22:31 Last Admin: 05/17/18 23:58 Dose: 1.25 mg Ferrous Sulfate (Iron) 330 mg GT DAILY [facility] Stop: 07/11/18 08:59 Last Admin: 05/19/18 11:06 Dose: 330 mg Gemfibrozil (Lopid) 600 mg GT BID [facility] Stop: 07/11/18 08:59 Last Admin: 05/18/18 16:42 Dose: 600 mg Piperacillin Sod/Tazobactam (Sod 2.25 gm/ Sodium Chloride) 100 mls @ 100 mls/ hr IV Q8HR [facility] Stop: 07/10/18 20:59 Last Infusion: 05/19/18 05:15 Dose: Infused Amikacin Sulfate 500 mg/ (Dextrose) 102 mls @ 200 mls/hr IV Q24HR [facility] Stop: 07/13/18 14:59 Last Infusion: 05/19/18 11:37 Dose: Infused Sodium Chloride (Nacl 0.9%) 1,000 mls @ 30 mls/hr IV .Q24H [facility] Stop: 07/18/18 13:29 Insulin Aspart (Novolog) 0 units SUBQ Q6H [facility]; Protocol Stop: 07/11/18 00:00 Last Admin: 05/19/18 06:35 Dose: 2 units Insulin Human Isoph/Insulin Regular (Novolin 70/30) 22 units SUBQ HS [facility]; Protocol Stop: 07/10/18 20:59 Last Admin: 05/18/18 20:22 Dose: 22 units Insulin Human Isoph/Insulin Regular (Novolin 70/30) 15 units SUBQ DAILY [facility]; Protocol Stop: 07/19/18 08:59 Ipratropium [place] (Atrovent Neb 0.5mg/2.5ml) 0.5 mg HHN Q2HRT PRN PRN Reason: Shortness of Breath or Wheeze Stop: 07/10/18 19:22 Lactobacillus Rhamnosus (Culturelle 15b) 1 each GT DAILY [facility] Stop: 07/11/18 08:59 Last Admin: 05/19/18 11:08 Dose: 1 each Lactobacillus Rhamnosus (Culturelle 15b) 1 each PO DAILY [facility] Stop: 07/17/18 15:59 Last Admin: 05/18/18 15:48 Dose: 1 each Lactulose (Cephulac) 20 gm GT PRN PRN PRN Reason: BOWEL MANAGEMENT Stop: 07/10/18 19:13 Levetiracetam (Keppra) 1,000 mg GT Q12HR [facility] Stop: 07/11/18 08:59 Last Admin: 05/19/18 11:07 Dose: 1,000 mg Levothyroxine Sodium (Synthroid) 0.1 mg GT QDAC [facility] Stop: 07/11/18 07:29 Last Admin: 05/19/18 06:35 Dose: 0.1 mg Lorazepam (Ativan) 1 mg IV Q4H PRN; Protocol PRN Reason: Seizure Stop: 07/10/18 19:22 Metoclopramide HCl (Reglan) 10 mg GT Q8HR [facility] Stop: 07/12/18 12:59 Last Admin: 05/19/18 04:13 Dose: 10 mg Miscellaneous (Amikacin Iv Per Pharmacy) 1 ea MC PRN PRN PRN Reason: PROTOCOL Stop: 07/12/18 15:36 Miscellaneous (Probiotic Screen) 1 ea PRN PRN PRN Reason: PROTOCOL Stop: 07/17/18 15:12 Ondansetron HCl (Zofran) 4 mg IV Q8H PRN PRN Reason: Nausea / Vomiting Stop: 07/10/18 19:23 Pantoprazole Sodium (Protonix) 40 mg IVP BID [facility] Stop: 07/11/18 08:59 Last Admin: 05/19/18 11:26 Dose: 40 mg Petrolatum (Vaseline Oint) 1 appl TP BID [facility] Stop: 07/16/18 16:59 Last Admin: 05/19/18 11:09 Dose: 1 appl Simvastatin (Zocor) 20 mg PO HS [facility]; Protocol Stop: 07/10/18 20:59 Last Admin: 05/18/18 20:15 Dose: 20 mg Sucralfate (Carafate) 1 gm GT QID [facility] Stop: 07/10/18 20:59 Last Admin: 05/18/18 20:15 Dose: 1 gm Theophylline (El-Dur) 100 mg GT BID [facility] Stop: 07/17/18 16:59 Last Admin: 05/18/18 16:41 Dose: 100 mg Zinc Sulfate (Zinc Sulfate) 220 mg GT DAILY [facility] Stop: 07/11/18 08:59 Last Admin: 05/19/18 11:06 Dose: 220 mg General: No acute distress Neck: Supple Cardiovascular: Regular rate Lungs: Normal air movement Abdomen: Bowel sounds, Soft, Other (INTACT GT), no Tender Extremities: Edema (mild) - Procedures Procedures: Procedures Procedure Code Date AIRWAYS SURGICAL PROCEDURE 82961 03/03/16 BLOOD TRANSFUSION SERVICE 65286 09/27/17 CHANGE FEEDING DEVICE IN UP INTEST TRACT, LOCKS TENDER APPROACH [id number] 12/10/16 CHANGE GASTROSTOMY TUBE 70841 06/06/13 CONTINUOUS INVASIVE MECHANICAL VENTILATION <96 CONSEC HRS 96.71 02/02/13 CONTINUOUS INVASIVE MECHANICAL VENTILATION =/>96 CONSEC HRS 96.72 06/06/13 DESTRUCTION OF BLADDER, ENDO [id number] 05/11/18 [place] [address] 03/03/16 IMMUNIZATION ADMIN 29938 03/03/16 INFLUENZA VACCINATION 99.52 02/02/13 INSERT NON-TUNNEL CV CATH 66750 03/03/16 INSERTION OF INFUSION DEV INTO SUP VENA CAVA, PERC APPROACH [id number] 03/03/16 INSJ PICC 5 YR+ W/O IMAGING 72790 02/02/13 INTRODUCTION OF SERUM/TOX/VACCINE INTO MUSCLE, PERC APPROACH [id number] 03/03/16 OTHER GASTROSTOMY 43.19 06/03/10 REPLACE GASTROSTOMY TUBE 97.02 06/06/13 RESPIRATORY VENTILATION, GREATER THAN 96 CONSECUTIVE HOURS [id number] 05/11/18 TRANSFUSE NONAUT RED BLOOD CELLS IN PERIPH VEIN, PERC 23057I7 09/27/17 VACCINATION NEC 99.55 02/02/13 VENOUS CATHETERIZATION NEC 38.93 02/02/13 VENT MGMT INPAT INIT DAY 03/03/16 VENT MGMT INPAT SUBQ DAY 03/03/16 Assessment/Plan - Assessment Assessment: Acute respiratory failure on ventilator with tracheostomy Asymptomatic bradycardia Hypothyroid Aspiration pneumonia Hyperlipidemia Urinary tract infection Hematuria Dementia Stage I sacral decubitus ulcer Parkinson's disease Osteoporosis G-tube Protein calorie malnutrition Hyperlipidemia - Plan Plan: Continue present management continue with management continue IV antibiotics Nutritional Asmnt/Malnutr-PDOC - Dietary Evaluation Malnutrition Findings (Please click <Entered> for more info): Nutritional Asmnt/Malnutrition Start: 05/12/18 14: 39 Text: Status: Complete Freq: Protocol: Document 05/12/18 14:39 RHAQUE (Rec: 05/12/18 14:59 RHAQUE [id number]) Nutritional Asmnt/Malnutrition Patient General Information Nutritional Screening High Risk Consult Diagnosis UTI, GI bleed Pertinent Medical Hx/Surgical Hx Ventilator dependent Resp failure, Parkinson's, Seizure, Dementia, Chronic Hydrocephalus w [employer] shunt, DM, Decubitus Ulcer, Subjective Information Consult received for Blood Glucose 233 with Hx of DM while on TF. Pt is trached to a ventilator. Current TF provides 1300ml/day volume, 1560 kcal/day, 78g Protein/ day. 1047 ml water total. Current Diet Order/ Nutrition Support Tube feeding Glucerna 1.2 65ml /hr x 20hrs Patient / S.O Not Indicated Pertinent Medications Docusate, Gemfibrozil, Insulin Aspart, Insulin Novolin, Lactulose, Synthroid, Metoclopramide, Ondansetron, Simvastatin Pertinent Labs (05/12) BUN 65, Na+ 135, Gluc 214, POC Gluc 241 Nutritional Hx/Data Height 1.63 m Height (Calculated Centimeters) 162.6 Current Weight (lbs) 78.018 kg Weight (Calculated Kilograms) 78.0 Weight (Calculated Grams) 02712.9 Startex Body Weight 120 % Startex Body Weight 135 Body Mass Index (BMI) 29.5 GI Symptoms Last BM No Noted B.M. Cultural/Ethnic/Hinduism Belief None indicated Skin Integrity/Comment: Germán Score 12. On Nursing flowsheet, pressure ulcer on coccyx noted. No wound care note. Unknown stage. Current %PO Negligible < 25% Estimated Nutritional Goals BEE in Kcals: Adj wt of IBW Calories/Kcals/Kg 25-30 Kcals Calculated 1130-7694 Protein: Adj wt of IBW Protein g/k.2-1.5 Protein Calculated 72-90 Fluid: ml 4948-2067 Nutritional Problem 1. Problem Problem Altered Nutritional related Lab values Etiology Uncontrolled hyperglycemia aeb Signs/Symptoms: (05/12) Gluc 214, POC Gluc 241 Malnutrition Alert Is there a minimum of two criteria No selected? Query Text:Check all the applicable criteria. A minimum of two criteria are recommended for diagnosis of either severe or non-severe malnutrition. Malnutrition Related to Morbid Obesity Malnutrition related to morbid obesity No Intervention/Recommendation Comments Continue Tube feeding as ordered. Pt already on DM tube feeding formula. MD to modify insulin regimen as needed for optimal glycemic control. Will modify nutrient needs based on wound care notes. Expected Outcomes/Goals Expected Outcomes/Goals 1. Labs WNL 2. Tube feeding continue to be tolerated 3. F/U in 2-3 days as HR (05/14 -)
[2018-05-19] MEDS: Theophylline 80 mg/15 mL UDC GT SCH ×2 (17:14→19:36)
--- NOTE | 2018-05-19 17:34 | Infectious Disease Prog Note ---
Infectious Disease Subjective - Review of Systems Service Date: 05/18/18 Events since last encounter: cc pseudomonas pn hpi- d/w staff cx noted ros no fevr o/e vss chest vesicular abd soft ext pulse trach Vital Signs - 24 hr 05/18/18 05/18/18 05/18/18 17:55 17:56 18:59 Temp HR 55 56 RR 16 BP 117/46 O2 Sat % 100 100 100 05/18/18 05/18/18 05/18/18 19:00 20:00 21:00 Temp 98.6 F HR 57 67 69 RR 16 16 16 BP 120/47 113/47 121/51 O2 Sat % 100 100 100 05/18/18 05/18/18 05/18/18 21:04 22:00 23:00 Temp HR 70 66 66 RR 16 16 BP 131/56 140/59 O2 Sat % 100 100 100 05/18/18 05/19/18 05/19/18 23:16 00:00 01:00 Temp 98.9 F HR 72 69 68 RR 16 16 BP 139/76 146/71 O2 Sat % 100 100 100 05/19/18 05/19/18 05/19/18 01:06 02:00 03:00 Temp HR 72 72 73 RR 16 16 BP 145/84 131/65 O2 Sat % 100 100 100 05/19/18 05/19/18 05/19/18 03:54 04:00 05:00 Temp 98.2 F HR 71 88 70 RR 16 16 BP 136/68 136/67 O2 Sat % 100 100 100 05/19/18 05/19/18 05/19/18 05:13 06:00 07:00 Temp HR 78 72 58 RR 16 160 BP 143/68 O2 Sat % 100 100 05/19/18 05/19/18 05/19/18 07:38 08:00 09:00 Temp 98.3 F HR 53 58 60 RR 16 18 BP 123/47 147/73 O2 Sat % 100 98 98 05/19/18 05/19/18 05/19/18 09:50 10:00 11:00 Temp 98.4 F HR 58 98 77 RR 18 18 BP 154/76 155/66 O2 Sat % 100 05/19/18 05/19/18 05/19/18 11:05 11:50 12:00 Temp HR 58 55 66 RR 18 BP 133/59 146/72 O2 Sat % 100 05/19/18 05/19/18 05/19/18 13:00 13:28 14:00 Temp HR 66 74 68 RR 18 16 BP 139/71 140/67 O2 Sat % 100 05/19/18 05/19/18 05/19/18 15:00 15:26 16:00 Temp 99.2 F HR 60 56 58 RR 16 16 BP 142/57 132/62 O2 Sat % 100 98 05/19/18 17:00 Temp 99 F HR 62 RR 16 BP 141/64 O2 Sat % 100 05/14/18 16:21 Wound Care Notes by Eric Connors Wound Evaluation: Wound Consult ordered for low Germán score. Patient evaluated for a low Germán score of 12. Patient was asleep, non- responsive to voice, responsive to tactile stimuli, and received in a [employer] InTouch bed with an IsoFlex CRUZ mattress. Patient is unable to turn in bed independently. Skin is fair; Scar tissue present on Sacral-Coccygeal area. Recommend: Reposition patient [id number] only every two hours with pillow support. Elevate, off-load, and float bilateral heels with one pillow lengthwise under each extremity at all times. Offload pressure areas with pillows for pressure re-distribution. Perform skin care and monitor skin integrity q shift. Use moisture barrier cream on moisture susceptible areas qid and as needed for soiling. Initiate low air loss therapy. Will continue to follow as a Germán. Initialized on 05/14/18 16:21 - END OF NOTE Microbiology 05/11/18 15:45 Blood - Final NO GROWTH AFTER 5 DAYS 05/11/18 15:31 Blood - Final NO GROWTH AFTER 5 DAYS 05/12/18 00:10 Sputum Culture - Endotracheal Wash Gram Stain - Final 05/12/18 00:10 Sputum Culture - Endotracheal Wash Sputum Culture - Final Pseudomonas Aeruginosa 05/11/18 16:50 Urine,Clean Catch Urine Culture - Final Klebsiella Pneumoniae Esbl Proteus Mirabilis 05/11/18 12:30 Nares - Final NO MRSA ISOLATED Laboratory Results - last 24 hr 05/18/18 05/19/18 05/19/18 20:19 00:07 04:25 WBC 8.4 RBC 3.02 L Hgb 8.2 L Hct 25.4 L MCV 84.1 MCH 27.2 MCHC Differential 32.3 RDW 16.0 Plt Count 337 MPV 7.4 Neutrophils % 79.0 Lymphocytes % 12.7 L Monocytes % 4.7 Eosinophils % 3.2 Basophils % 0.4 Sodium Potassium Chloride Carbon Dioxide Anion Gap BUN Creatinine Est GFR ( Amer) Est GFR (Non-Af Amer) BUN/Creatinine Ratio Glucose POC Glucose 150 H 136 H Calcium Magnesium B-Natriuretic Peptide 05/19/18 05/19/18 05/19/18 04:25 04:25 06:03 WBC RBC Hgb Hct MCV MCH MCHC Differential RDW Plt Count MPV Neutrophils % Lymphocytes % Monocytes % Eosinophils % Basophils % Sodium 141 Potassium 4.1 Chloride 112 H Carbon Dioxide 18.1 L Anion Gap 15.0 BUN 16 Creatinine 0.8 Est GFR ( Amer) TNP Est GFR (Non-Af Amer) TNP BUN/Creatinine Ratio 20.0 Glucose 151 H POC Glucose 153 H Calcium 8.3 L Magnesium 2.2 B-Natriuretic Peptide 119.0 H 05/19/18 16:43 WBC RBC Hgb Hct MCV MCH MCHC Differential RDW Plt Count MPV Neutrophils % Lymphocytes % Monocytes % Eosinophils % Basophils % Sodium Potassium Chloride Carbon Dioxide Anion Gap BUN Creatinine Est GFR ( Amer) Est GFR (Non-Af Amer) BUN/Creatinine Ratio Glucose POC Glucose 151 H Calcium Magnesium B-Natriuretic Peptide Diagnoses SEPSIS, UNSPECIFIED ORGANISM (05/11/18) ANEMIA, UNSPECIFIED (05/11/18) PNEUMONIA, UNSPECIFIED ORGANISM (05/11/18) CHRONIC RESPIRATORY FAILURE, UNSP W HYPOXIA OR HYPERCAPNIA (05/11/18) URINARY TRACT INFECTION, SITE NOT SPECIFIED (05/11/18) WEAKNESS (05/11/18) 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 (05/11/18) Current Medications Acetaminophen (Tylenol 650mg/20.3ml Suspension) 650 mg GT Q6HR PRN PRN Reason: Mild Pain or Fever >101 Stop: 07/10/18 19:13 Last Admin: 05/11/18 21:39 Dose: 650 mg Acetaminophen/Hydrocodone Bitart ([place] 5mg/325mg) 1 tab GT Q6H PRN PRN Reason: Severe Pain Stop: 07/10/18 19:13 Acetylcysteine (Mucomyst 20%) 2 ml HHN Q6HRT [facility] Stop: 07/11/18 00:59 Last Admin: 05/19/18 13:31 Dose: 2 ml Albuterol Sulfate (Albuterol 2.5mg/3ml Neb Ud) 2.5 mg HHN Q2HRT PRN PRN Reason: Shortness of Breath or Wheeze Stop: 07/10/18 19:22 Albuterol/Ipratropium (Duoneb Neb) 3 ml HHN Q6HRT [facility] Stop: 07/11/18 00:59 Last Admin: 05/19/18 13:26 Dose: 3 ml Albuterol/Ipratropium (Duoneb Neb) 3 ml HHN Q2HRT PRN PRN Reason: Wheezing Stop: 07/10/18 19:13 Amlodipine Besylate (Norvasc) 5 mg GT DAILY [facility] Stop: 07/11/18 08:59 Last Admin: 05/19/18 11:05 Dose: 5 mg Atropine Sulfate (Atropine) 1 mg IVP Q4H PRN PRN Reason: Cardiac Arrhythmia (HR < 35) Stop: 07/16/18 22:31 Benztropine Mesylate (Cogentin) 1 mg GT BID [facility] Stop: 07/11/18 08:59 Last Admin: 05/19/18 17:16 Dose: 1 mg Carbidopa/Levodopa (Sinemet 25mg-100 Mg) 1 tab GT DAILY [facility] Stop: 07/11/18 08:59 Last Admin: 05/18/18 08:28 Dose: 1 tab Chlorhexidine Gluconate (Peridex) 15 ml MM 0800,2000 [facility] Stop: 07/10/18 19:59 Last Admin: 05/18/18 20:21 Dose: 15 ml Docusate Sodium (Colace) 250 mg PO BID [facility] Stop: 07/11/18 08:59 Last Admin: 05/19/18 17:16 Dose: 250 mg Enalaprilat (Vasotec) 1.25 mg IVP Q6H PRN PRN Reason: SBP ABOVE 160 Stop: 07/16/18 22:31 Last Admin: 05/17/18 23:58 Dose: 1.25 mg Ferrous Sulfate (Iron) 330 mg GT DAILY [facility] Stop: 07/11/18 08:59 Last Admin: 05/19/18 11:06 Dose: 330 mg Gemfibrozil (Lopid) 600 mg GT BID [facility] Stop: 07/11/18 08:59 Last Admin: 05/19/18 17:15 Dose: 600 mg Piperacillin Sod/Tazobactam (Sod 2.25 gm/ Sodium Chloride) 100 mls @ 100 mls/ hr IV Q8HR [facility] Stop: 07/10/18 20:59 Last Infusion: 05/19/18 05:15 Dose: Infused Amikacin Sulfate 500 mg/ (Dextrose) 102 mls @ 200 mls/hr IV Q24HR [facility] Stop: 07/13/18 14:59 Last Infusion: 05/19/18 11:37 Dose: Infused Sodium Chloride (Nacl 0.9%) 1,000 mls @ 30 mls/hr IV .Q24H [facility] Stop: 07/18/18 13:29 Insulin Aspart (Novolog) 0 units SUBQ Q6H [facility]; Protocol Stop: 07/11/18 00:00 Last Admin: 05/19/18 17:01 Dose: 2 units Insulin Human Isoph/Insulin Regular (Novolin 70/30) 22 units SUBQ HS [facility]; Protocol Stop: 07/10/18 20:59 Last Admin: 05/18/18 20:22 Dose: 22 units Insulin Human Isoph/Insulin Regular (Novolin 70/30) 15 units SUBQ DAILY [facility]; Protocol Stop: 07/19/18 08:59 Ipratropium [place] (Atrovent Neb 0.5mg/2.5ml) 0.5 mg HHN Q2HRT PRN PRN Reason: Shortness of Breath or Wheeze Stop: 07/10/18 19:22 Lactobacillus Rhamnosus (Culturelle 15b) 1 each GT DAILY [facility] Stop: 07/11/18 08:59 Last Admin: 05/19/18 11:08 Dose: 1 each Lactobacillus Rhamnosus (Culturelle 15b) 1 each PO DAILY [facility] Stop: 07/17/18 15:59 Last Admin: 05/18/18 15:48 Dose: 1 each Lactulose (Cephulac) 20 gm GT PRN PRN PRN Reason: BOWEL MANAGEMENT Stop: 07/10/18 19:13 Levetiracetam (Keppra) 1,000 mg GT Q12HR [facility] Stop: 07/11/18 08:59 Last Admin: 05/19/18 11:07 Dose: 1,000 mg Levothyroxine Sodium (Synthroid) 0.1 mg GT QDAC [facility] Stop: 07/11/18 07:29 Last Admin: 05/19/18 06:35 Dose: 0.1 mg Lorazepam (Ativan) 1 mg IV Q4H PRN; Protocol PRN Reason: Seizure Stop: 07/10/18 19:22 Metoclopramide HCl (Reglan) 10 mg GT Q8HR [facility] Stop: 07/12/18 12:59 Last Admin: 05/19/18 16:57 Dose: 10 mg Miscellaneous (Amikacin Iv Per Pharmacy) 1 ea PRN PRN PRN Reason: PROTOCOL Stop: 07/12/18 15:36 Miscellaneous (Probiotic Screen) 1 ea PRN PRN PRN Reason: PROTOCOL Stop: 07/17/18 15:12 Ondansetron HCl (Zofran) 4 mg IV Q8H PRN PRN Reason: Nausea / Vomiting Stop: 07/10/18 19:23 Pantoprazole Sodium (Protonix) 40 mg IVP BID [facility] Stop: 07/11/18 08:59 Last Admin: 05/19/18 17:16 Dose: 40 mg Petrolatum (Vaseline Oint) 1 appl TP BID [facility] Stop: 07/16/18 16:59 Last Admin: 05/19/18 17:16 Dose: 1 appl Simvastatin (Zocor) 20 mg PO HS [facility]; Protocol Stop: 07/10/18 20:59 Last Admin: 05/18/18 20:15 Dose: 20 mg Sucralfate (Carafate) 1 gm GT QID [facility] Stop: 07/10/18 20:59 Last Admin: 05/19/18 16:57 Dose: 1 gm Theophylline (El-Dur) 100 mg GT BID [facility] Stop: 07/17/18 16:59 Last Admin: 05/19/18 17:14 Dose: 100 mg Zinc Sulfate (Zinc Sulfate) 220 mg GT DAILY [facility] Stop: 07/11/18 08:59 Last Admin: 05/19/18 11:06 Dose: 220 mg Subjective: cc pn uti hpi- cx noted i n icu on vent vs chest claer abd soft trach dx Vital Signs - 24 hr 05/13/18 05/13/18 05/13/18 18:00 18:53 19:00 Temp HR 79 74 69 RR 15 16 BP 138/58 143/53 O2 Sat % 100 100 100 05/13/18 05/13/18 05/13/18 20:00 20:29 21:00 Temp 98.1 F HR 83 83 74 RR 16 16 BP 151/75 140/67 O2 Sat % 100 100 100 05/13/18 05/13/18 05/13/18 22:00 22:57 23:00 Temp HR 71 73 71 RR 16 16 BP 135/67 135/67 O2 Sat % 100 100 100 05/14/18 05/14/18 05/14/18 00:00 00:57 01:00 Temp 98.6 F HR 73 78 74 RR 16 16 BP 139/71 149/73 O2 Sat % 100 100 100 05/14/18 05/14/18 05/14/18 02:00 02:48 03:00 Temp HR 73 74 70 RR 16 16 BP 148/68 133/58 O2 Sat % 100 100 100 05/14/18 05/14/18 05/14/18 03:32 04:00 04:33 Temp 98.3 F HR 66 77 RR 16 16 BP 136/56 O2 Sat % 100 100 05/14/18 05/14/18 05/14/18 05:00 06:00 07:00 Temp 99.0 F HR 79 76 79 RR 15 16 16 BP 133/60 130/63 143/67 O2 Sat % 100 100 100 05/14/18 05/14/18 05/14/18 07:46 08:00 08:40 Temp 98.7 F HR 77 69 70 RR 16 BP 124/60 O2 Sat % 100 100 100 05/14/18 05/14/18 05/14/18 09:00 09:31 10:00 Temp 98.6 F 99.1 F HR 70 71 78 RR 16 16 BP 122/54 122/54 135/67 O2 Sat % 100 100 05/14/18 05/14/18 05/14/18 11:00 11:07 12:00 Temp 98.7 F 98.6 F HR 71 76 69 RR 16 14 BP 120/55 117/52 O2 Sat % 100 100 100 05/14/18 05/14/18 05/14/18 12:59 13:00 14:00 Temp 98.5 F 98.6 F HR 66 65 81 RR 16 16 BP 131/64 131/64 O2 Sat % 100 100 100 05/14/18 05/14/18 05/14/18 15:14 16:00 17:32 Temp HR 79 92 RR BP O2 Sat % 100 100 100 Laboratory Results - last 24 hr 05/12/18 05/13/18 05/13/18 20:56 17:59 21:56 WBC RBC Hgb Hct MCV MCH MCHC Differential RDW Plt Count MPV Add Manual Diff Band Neutrophils % Neutrophils (Manual) Lymphocytes Monocytes Sodium Potassium Chloride Carbon Dioxide Anion Gap BUN Creatinine Est GFR ( Amer) Est GFR (Non-Af Amer) BUN/Creatinine Ratio Glucose POC Glucose 207 H 176 H 148 H Calcium B-Natriuretic Peptide 05/13/18 05/14/18 05/14/18 21:58 00:35 04:35 WBC 8.1 RBC 2.68 L Hgb 7.1 L* Hct 21.9 L MCV 81.9 MCH 26.4 L MCHC Differential 32.2 RDW 16.9 Plt Count 286 MPV 7.4 Add Manual Diff YES Band Neutrophils % 2 Neutrophils (Manual) 80 Lymphocytes 12 L Monocytes 6 Sodium Potassium Chloride Carbon Dioxide Anion Gap BUN Creatinine Est GFR ( Amer) Est GFR (Non-Af Amer) BUN/Creatinine Ratio Glucose POC Glucose 149 H 161 H Calcium B-Natriuretic Peptide 05/14/18 05/14/18 05/14/18 04:35 04:35 05:30 WBC RBC Hgb Hct MCV MCH MCHC Differential RDW Plt Count MPV Add Manual Diff Band Neutrophils % Neutrophils (Manual) Lymphocytes Monocytes Sodium 139 Potassium 4.2 Chloride 106 Carbon Dioxide 22.1 Anion Gap 15.1 BUN 50 H Creatinine 1.3 H Est GFR ( Amer) TNP Est GFR (Non-Af Amer) TNP BUN/Creatinine Ratio 38.5 Glucose 165 H POC Glucose 143 H Calcium 8.4 L B-Natriuretic Peptide 84.7 05/14/18 05/14/18 09:27 13:29 WBC RBC Hgb Hct MCV MCH MCHC Differential RDW Plt Count MPV Add Manual Diff Band Neutrophils % Neutrophils (Manual) Lymphocytes Monocytes Sodium Potassium Chloride Carbon Dioxide Anion Gap BUN Creatinine Est GFR ( Amer) Est GFR (Non-Af Amer) BUN/Creatinine Ratio Glucose POC Glucose 176 H 161 H Calcium B-Natriuretic Peptide Diagnoses SEPSIS, UNSPECIFIED ORGANISM (05/11/18) ANEMIA, UNSPECIFIED (05/11/18) PNEUMONIA, UNSPECIFIED ORGANISM (05/11/18) CHRONIC RESPIRATORY FAILURE, UNSP W HYPOXIA OR HYPERCAPNIA (05/11/18) URINARY TRACT INFECTION, SITE NOT SPECIFIED (05/11/18) WEAKNESS (05/11/18) DEPENDENCE ON SUPPLEMENTAL OXYGEN (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) Current Medications Acetaminophen (Tylenol 650mg/20.3ml Suspension) 650 mg GT Q6HR PRN PRN Reason: Mild Pain or Fever >101 Stop: 07/10/18 19:13 Last Admin: 05/11/18 21:39 Dose: 650 mg Acetaminophen/Hydrocodone Bitart ([place] 5mg/325mg) 1 tab GT Q6H PRN PRN Reason: Severe Pain Stop: 07/10/18 19:13 Acetylcysteine (Mucomyst 20%) 2 ml HHN Q6HRT [facility] Stop: 07/11/18 00:59 Last Admin: 05/14/18 12:59 Dose: 2 ml Albuterol Sulfate (Albuterol 2.5mg/3ml Neb Ud) 2.5 mg HHN Q2HRT PRN PRN Reason: Shortness of Breath or Wheeze Stop: 07/10/18 19:22 Albuterol/Ipratropium (Duoneb Neb) 3 ml HHN Q6HRT [facility] Stop: 07/11/18 00:59 Last Admin: 05/14/18 12:59 Dose: 3 ml Albuterol/Ipratropium (Duoneb Neb) 3 ml HHN Q2HRT PRN PRN Reason: Wheezing Stop: 07/10/18 19:13 Amlodipine Besylate (Norvasc) 5 mg GT DAILY [facility] Stop: 07/11/18 08:59 Last Admin: 05/14/18 09:31 Dose: 5 mg Benztropine Mesylate (Cogentin) 1 mg GT BID [facility] Stop: 07/11/18 08:59 Last Admin: 05/14/18 16:38 Dose: 1 mg Carbidopa/Levodopa (Sinemet 25mg-100 Mg) 1 tab GT DAILY [facility] Stop: 07/11/18 08:59 Last Admin: 05/14/18 09:30 Dose: 1 tab Chlorhexidine Gluconate (Peridex) 15 ml MM 0800,1999 [facility] Stop: 07/10/18 19:59 Last Admin: 05/14/18 09:32 Dose: 15 ml Clonazepam (Klonopin) 0.5 mg GT BID [facility]; Protocol Stop: 07/11/18 08:59 Last Admin: 05/14/18 16:38 Dose: 0.5 mg Docusate Sodium (Colace) 250 mg PO BID [facility] Stop: 07/11/18 08:59 Last Admin: 05/14/18 16:38 Dose: 250 mg Ferrous Sulfate (Iron) 330 mg GT DAILY [facility] Stop: 07/11/18 08:59 Last Admin: 05/14/18 09:30 Dose: 330 mg Gemfibrozil (Lopid) 600 mg GT BID [facility] Stop: 07/11/18 08:59 Last Admin: 05/14/18 16:38 Dose: 600 mg Sodium Chloride (Nacl 0.9%) 1,000 mls @ 80 mls/hr IV .[id number] [facility] Stop: 07/10/18 19:29 Last Admin: 05/14/18 16:48 Dose: 80 mls/hr Piperacillin Sod/Tazobactam (Sod 2.25 gm/ Sodium Chloride) 100 mls @ 100 mls/ hr IV Q8HR [facility] Stop: 07/10/18 20:59 Last Admin: 05/14/18 13:44 Dose: 100 mls/hr Amikacin Sulfate 500 mg/ (Dextrose) 102 mls @ 200 mls/hr IV Q24HR [facility] Stop: 07/13/18 14:59 Last Admin: 05/14/18 15:44 Dose: 200 mls/hr Insulin Aspart (Novolog) 0 units SUBQ Q6H [facility]; Protocol Stop: 07/11/18 00:00 Last Admin: 05/14/18 13:44 Dose: 2 units Insulin Human Isoph/Insulin Regular (Novolin 70/30) 22 units SUBQ HS [facility]; Protocol Stop: 07/10/18 20:59 Last Admin: 05/13/18 21:45 Dose: 22 units Insulin Human Isoph/Insulin Regular (Novolin 70/30) 45 units SUBQ DAILY [facility]; Protocol Stop: 07/11/18 08:59 Last Admin: 05/14/18 09:34 Dose: 45 units Ipratropium [place] (Atrovent Neb 0.5mg/2.5ml) 0.5 mg HHN Q2HRT PRN PRN Reason: Shortness of Breath or Wheeze Stop: 07/10/18 19:22 Lactobacillus Rhamnosus (Culturelle 15b) 1 each GT DAILY [facility] Stop: 07/11/18 08:59 Last Admin: 05/14/18 09:30 Dose: 1 each Lactulose (Cephulac) 20 gm GT PRN PRN PRN Reason: BOWEL MANAGEMENT Stop: 07/10/18 19:13 Levetiracetam (Keppra) 1,000 mg GT Q12HR [facility] Stop: 07/11/18 08:59 Last Admin: 05/14/18 09:31 Dose: 1,000 mg Levothyroxine Sodium (Synthroid) 0.1 mg GT QDAC [facility] Stop: 07/11/18 07:29 Last Admin: 05/14/18 09:30 Dose: 0.1 mg Lorazepam (Ativan) 1 mg IV Q4H PRN; Protocol PRN Reason: Seizure Stop: 07/10/18 19:22 Metoclopramide HCl (Reglan) 10 mg GT Q8HR [facility] Stop: 07/12/18 12:59 Last Admin: 05/14/18 13:44 Dose: 10 mg Miscellaneous (Calcium Alginate [Juan]) 1 each TP DAILY [facility] Stop: 07/11/18 08:59 Miscellaneous (Collagenase Clostridium Hist. [Santyl]) 1 appl TP DAILY [facility] Stop: 07/11/18 08:59 Miscellaneous (Petrolatum,White/Lanolin [Vitamin A And D Ointment]) 113 gm TP DAILY [facility] Stop: 07/11/18 08:59 Miscellaneous (Amikacin Iv Per Pharmacy) 1 ea MC PRN PRN PRN Reason: PROTOCOL Stop: 07/12/18 15:36 Ondansetron HCl (Zofran) 4 mg IV Q8H PRN PRN Reason: Nausea / Vomiting Stop: 07/10/18 19:23 Pantoprazole Sodium (Protonix) 40 mg IVP BID [facility] Stop: 07/11/18 08:59 Last Admin: 05/14/18 16:39 Dose: 40 mg Simvastatin (Zocor) 20 mg PO HS [facility]; Protocol Stop: 07/10/18 20:59 Last Admin: 05/13/18 21:10 Dose: 20 mg Sucralfate (Carafate) 1 gm GT QID [facility] Stop: 07/10/18 20:59 Last Admin: 05/14/18 16:38 Dose: 1 gm Zinc Sulfate (Zinc Sulfate) 220 mg GT DAILY [facility] Stop: 07/11/18 08:59 Last Admin: 05/14/18 09:31 Dose: 220 mg 05/14/18 16:21 Wound Care Notes by Eric Connors Wound Evaluation: Wound Consult ordered for low Germán score. Patient evaluated for a low Germán score of 12. Patient was asleep, non- responsive to voice, responsive to tactile stimuli, and received in a [employer] InTouch bed with an IsoFlex CRUZ mattress. Patient is unable to turn in bed independently. Skin is fair; Scar tissue present on Sacral-Coccygeal area. Recommend: Reposition patient [id number] only every two hours with pillow support. Elevate, off-load, and float bilateral heels with one pillow lengthwise under each extremity at all times. Offload pressure areas with pillows for pressure re-distribution. Perform skin care and monitor skin integrity q shift. Use moisture barrier cream on moisture susceptible areas qid and as needed for soiling. Initiate low air loss therapy. Will continue to follow as a Germán. Initialized on 05/14/18 16:21 - END OF NOTE Infectious Disease Objective - Results Result Diagrams: 05/19/18 04:25 05/19/18 04:25 Recent Labs: Laboratory Last Values WBC 8.4 Th/cmm (4.8-10.8) 05/19/18 04:25 RBC 3.02 Mil/cmm (3.80-5.20) L 05/19/18 04:25 Hgb 8.2 gm/dL (12-16) L 05/19/18 04:25 Hct 25.4 % (41.0-60) L 05/19/18 04:25 MCV 84.1 fl (81-100) 05/19/18 04:25 MCH 27.2 pg (27.0-31.0) 05/19/18 04:25 MCHC Differential 32.3 pg (28.0-36.0) 05/19/18 04:25 RDW 16.0 % (11.5-20.0) 05/19/18 04:25 Plt Count 337 Th/cmm (150-400) 05/19/18 04:25 MPV 7.4 fl 05/19/18 04:25 Add Manual Diff YES 05/15/18 04:20 Neutrophils % 79.0 % (40.0-80.0) 05/19/18 04:25 Band Neutrophils % 0 % (0-10) 05/15/18 04:20 Lymphocytes % 12.7 % (20.0-50.0) L 05/19/18 04:25 Monocytes % 4.7 % (2.0-10.0) 05/19/18 04:25 Eosinophils % 3.2 % (0.0-5.0) 05/19/18 04:25 Basophils % 0.4 % (0.0-2.0) 05/19/18 04:25 Neutrophils (Manual) 80 % (40-80) 05/15/18 04:20 Lymphocytes 14 % (20-50) L 05/15/18 04:20 Monocytes 6 % (2-10) 05/15/18 04:20 Eosinophils 2 % (0-5) 05/12/18 07:10 Basophils 0 % (0-3) 05/12/18 07:10 PT 10.8 SECONDS (9.5-11.5) 05/17/18 04:35 INR 1.04 (0.5-1.4) 05/17/18 04:35 PTT (Actin FS) 26.2 SECONDS (26.0-38.0) 05/17/18 04:35 Sodium 141 mEq/L (136-145) 05/19/18 04:25 Potassium 4.1 mEq/L (3.5-5.1) 05/19/18 04:25 Chloride 112 mEq/L (98-107) H 05/19/18 04:25 Carbon Dioxide 18.1 mEq/L (21.0-31.0) L 05/19/18 04:25 Anion Gap 15.0 (7.0-16.0) 05/19/18 04:25 BUN 16 mg/dL (7-25) 05/19/18 04:25 Creatinine 0.8 mg/dL (0.6-1.2) 05/19/18 04:25 Est GFR ( Amer) TNP 05/19/18 04:25 Est GFR (Non-Af Amer) TNP 05/19/18 04:25 BUN/Creatinine Ratio 20.0 05/19/18 04:25 Glucose 151 mg/dL (70-105) H 05/19/18 04:25 POC Glucose 151 MG/DL (70 - 105) H 05/19/18 16:43 Whole Bld Lactic Acid 1.45 mmol/L (0.60-1.99) 05/11/18 15:45 Calcium 8.3 mg/dL (8.6-10.3) L 05/19/18 04:25 Phosphorus 3.9 mg/dL (2.5-5.0) 05/11/18 15:45 Magnesium 2.2 mg/dL (1.9-2.7) 05/19/18 04:25 Iron 49 ug/dL (27-139) 05/12/18 07:10 TIBC 264 ug/dL (250-450) 05/12/18 07:10 Iron Saturation 19 % (15-55) 05/12/18 07:10 Unsaturated IBC 215 ug/dL (118-369) 05/12/18 07:10 Total Bilirubin 0.3 mg/dL (0.3-1.0) 05/11/18 15:45 AST 13 U/L (13-39) 05/11/18 15:45 ALT 10 U/L (7-52) 05/11/18 15:45 Alkaline Phosphatase 81 U/L (34-104) 05/11/18 15:45 Ammonia 59 umol/L (16-53) H 05/13/18 04:10 B-Natriuretic Peptide 119.0 pg/mL (5.0-100.0) H 05/19/18 04:25 Total Protein 8.3 gm/dL (6.0-8.3) 05/11/18 15:45 Albumin 3.6 gm/dL (3.7-5.3) L 05/11/18 15:45 Globulin 4.7 gm/dL 05/11/18 15:45 Albumin/Globulin Ratio 0.8 (1.0-1.8) L 05/11/18 15:45 Vitamin B12 1516 pg/mL (232-1245) H 05/12/18 07:10 Folic Acid >20.0 ng/mL (>3.0) 05/12/18 07:10 TSH 1.25 uIU/ml (0.34-5.60) 05/11/18 15:45 Urine Source CATH 05/11/18 16:50 Urine Color BROWN 05/11/18 16:50 Urine Clarity CLOUDY (CLEAR) H 05/11/18 16:50 Urine pH 7.0 (4.6 - 8.0) 05/11/18 16:50 Ur Specific [place] 1.010 (1.005-1.030) 05/11/18 16:50 Urine Protein 100 mg/dL (NEGATIVE) H 05/11/18 16:50 Urine Glucose (UA) NEGATIVE mg/dL (NEGATIVE) 05/11/18 16:50 Urine Ketones NEGATIVE mg/dL (NEGATIVE) 05/11/18 16:50 Urine Blood LARGE (NEGATIVE) H 05/11/18 16:50 Urine Nitrate NEGATIVE (NEGATIVE) 05/11/18 16:50 Urine Bilirubin SMALL (NEGATIVE) H 05/11/18 16:50 Urine Urobilinogen 0.2 E.U./dL (0.2 - 1.0) 05/11/18 16:50 Ur Leukocyte Esterase LARGE (NEGATIVE) H 05/11/18 16:50 Urine RBC 25-50 /hpf (0-5) H 05/11/18 16:50 Urine WBC 50-100 /hpf (0-5) H 05/11/18 16:50 Ur Epithelial Cells MODERATE /lpf (FEW) 05/11/18 16:50 Urine Bacteria 4+ /hpf (NONE SEEN) H 05/11/18 16:50 Amikacin Peak 27.9 ug/mL (20.0-30.0) 05/15/18 16:40 Amikacin Trough 6.4 ug/mL (1.0-8.0) 05/15/18 13:50 Urine Opiates Screen POSITIVE (NEGATIVE) H 05/11/18 16:50 Urine Methadone Screen NEGATIVE (NEGATIVE) 05/11/18 16:50 Ur Barbiturates Screen NEGATIVE (NEGATIVE) 05/11/18 16:50 Ur Tricyclics Screen NEGATIVE (NEGATIVE) 05/11/18 16:50 Levetiracetam 51.3 ug/mL (10.0-40.0) H 05/11/18 15:45 Ur Phencyclidine Scrn NEGATIVE (NEGATIVE) 05/11/18 16:50 Amphetamines Screen NEGATIVE (NEGATIVE) 05/11/18 16:50 U Methamphetamines Scrn NEGATIVE (NEGATIVE) 05/11/18 16:50 U Benzodiazepines Scrn NEGATIVE (NEGATIVE) 05/11/18 16:50 U Cocaine Metab Screen NEGATIVE (NEGATIVE) 05/11/18 16:50 U Cannabinoids Screen NEGATIVE (NEGATIVE) 05/11/18 16:50 Blood Type A POSITIVE 05/16/18 09:30 Rho(D) Type Cancelled 05/11/18 16:48 Antibody Screen NEGATIVE 05/16/18 09:30 Crossmatch See Detail 05/16/18 09:30 BBK History Checked Cancelled 05/11/18 16:48 - Physical Exam Vitals and I&O: Vital Signs Temp 99 F 05/19/18 17:00 Pulse 62 05/19/18 17:00 Resp 16 05/19/18 17:00 BP 141/64 05/19/18 17:00 Pulse Ox 100 05/19/18 17:00 Intake & Output 05/18/18 05/19/18 05/19/18 18:59 06:59 18:59 Intake Total 0417 707 0982 Output Total 1200 2375 Balance 205 200 -473 Weight (lbs) 93.032 kg 84.822 kg Intake: Intake, IV Amount 100 200 102 Amikacin 500 mg In 102 Dextrose 5% 100 ml @ 200 mls/hr IV Q24HR [facility] Rx#: [id number] Piperacillin Sodium/ 100 200 Tazobact 2.25 gm In Sodium Chloride 0.9% 100 ml @ 100 mls/hr IV Q8HR [facility] Rx#:[id number] Tube Feeding 1105 650 Other 200 1150 Output: Urine 1200 1525 Other 850 Other: # Bowel Movements 1 2 Stool Characteristics Soft Brown Black Green Weight Source Bedscale Bedscale Active Medications: Current Medications Acetaminophen (Tylenol 650mg/20.3ml Suspension) 650 mg GT Q6HR PRN PRN Reason: Mild Pain or Fever >101 Stop: 07/10/18 19:13 Last Admin: 05/11/18 21:39 Dose: 650 mg Acetaminophen/Hydrocodone Bitart ([place] 5mg/325mg) 1 tab GT Q6H PRN PRN Reason: Severe Pain Stop: 07/10/18 19:13 Acetylcysteine (Mucomyst 20%) 2 ml HHN Q6HRT [facility] Stop: 07/11/18 00:59 Last Admin: 05/19/18 13:31 Dose: 2 ml Albuterol Sulfate (Albuterol 2.5mg/3ml Neb Ud) 2.5 mg HHN Q2HRT PRN PRN Reason: Shortness of Breath or Wheeze Stop: 07/10/18 19:22 Albuterol/Ipratropium (Duoneb Neb) 3 ml HHN Q6HRT [facility]ANCICSO Stop: 07/11/18 00:59 Last Admin: 05/19/18 13:26 Dose: 3 ml Albuterol/Ipratropium (Duoneb Neb) 3 ml HHN Q2HRT PRN PRN Reason: Wheezing Stop: 07/10/18 19:13 Amlodipine Besylate (Norvasc) 5 mg GT DAILY [facility] Stop: 07/11/18 08:59 Last Admin: 05/19/18 11:05 Dose: 5 mg Atropine Sulfate (Atropine) 1 mg IVP Q4H PRN PRN Reason: Cardiac Arrhythmia (HR < 35) Stop: 07/16/18 22:31 Benztropine Mesylate (Cogentin) 1 mg GT BID [facility] Stop: 07/11/18 08:59 Last Admin: 05/19/18 17:16 Dose: 1 mg Carbidopa/Levodopa (Sinemet 25mg-100 Mg) 1 tab GT DAILY [facility] Stop: 07/11/18 08:59 Last Admin: 05/18/18 08:28 Dose: 1 tab Chlorhexidine Gluconate (Peridex) 15 ml MM 0800,2000 [facility] Stop: 07/10/18 19:59 Last Admin: 05/18/18 20:21 Dose: 15 ml Docusate Sodium (Colace) 250 mg PO BID [facility] Stop: 07/11/18 08:59 Last Admin: 05/19/18 17:16 Dose: 250 mg Enalaprilat (Vasotec) 1.25 mg IVP Q6H PRN PRN Reason: SBP ABOVE 160 Stop: 07/16/18 22:31 Last Admin: 05/17/18 23:58 Dose: 1.25 mg Ferrous Sulfate (Iron) 330 mg GT DAILY [facility] Stop: 07/11/18 08:59 Last Admin: 05/19/18 11:06 Dose: 330 mg Gemfibrozil (Lopid) 600 mg GT BID [facility] Stop: 07/11/18 08:59 Last Admin: 05/19/18 17:15 Dose: 600 mg Piperacillin Sod/Tazobactam (Sod 2.25 gm/ Sodium Chloride) 100 mls @ 100 mls/ hr IV Q8HR [facility] Stop: 07/10/18 20:59 Last Infusion: 05/19/18 05:15 Dose: Infused Amikacin Sulfate 500 mg/ (Dextrose) 102 mls @ 200 mls/hr IV Q24HR [facility] Stop: 07/13/18 14:59 Last Infusion: 05/19/18 11:37 Dose: Infused Sodium Chloride (Nacl 0.9%) 1,000 mls @ 30 mls/hr IV .Q24H [facility] Stop: 07/18/18 13:29 Insulin Aspart (Novolog) 0 units SUBQ Q6H [facility]; Protocol Stop: 07/11/18 00:00 Last Admin: 05/19/18 17:01 Dose: 2 units Insulin Human Isoph/Insulin Regular (Novolin 70/30) 22 units SUBQ HS [facility]; Protocol Stop: 07/10/18 20:59 Last Admin: 05/18/18 20:22 Dose: 22 units Insulin Human Isoph/Insulin Regular (Novolin 70/30) 15 units SUBQ DAILY [facility]; Protocol Stop: 07/19/18 08:59 Ipratropium [place] (Atrovent Neb 0.5mg/2.5ml) 0.5 mg HHN Q2HRT PRN PRN Reason: Shortness of Breath or Wheeze Stop: 07/10/18 19:22 Lactobacillus Rhamnosus (Culturelle 15b) 1 each GT DAILY [facility] Stop: 07/11/18 08:59 Last Admin: 05/19/18 11:08 Dose: 1 each Lactobacillus Rhamnosus (Culturelle 15b) 1 each PO DAILY [facility] Stop: 07/17/18 15:59 Last Admin: 05/18/18 15:48 Dose: 1 each Lactulose (Cephulac) 20 gm GT PRN PRN PRN Reason: BOWEL MANAGEMENT Stop: 07/10/18 19:13 Levetiracetam (Keppra) 1,000 mg GT Q12HR [facility] Stop: 07/11/18 08:59 Last Admin: 05/19/18 11:07 Dose: 1,000 mg Levothyroxine Sodium (Synthroid) 0.1 mg GT QDAC [facility] Stop: 07/11/18 07:29 Last Admin: 05/19/18 06:35 Dose: 0.1 mg Lorazepam (Ativan) 1 mg IV Q4H PRN; Protocol PRN Reason: Seizure Stop: 07/10/18 19:22 Metoclopramide HCl (Reglan) 10 mg GT Q8HR [facility] Stop: 07/12/18 12:59 Last Admin: 05/19/18 16:57 Dose: 10 mg Miscellaneous (Amikacin Iv Per Pharmacy) 1 ea PRN PRN PRN Reason: PROTOCOL Stop: 07/12/18 15:36 Miscellaneous (Probiotic Screen) 1 [facility] PRN PRN PRN Reason: PROTOCOL Stop: 07/17/18 15:12 Ondansetron HCl (Zofran) 4 mg IV Q8H PRN PRN Reason: Nausea / Vomiting Stop: 07/10/18 19:23 Pantoprazole Sodium (Protonix) 40 mg IVP BID [facility] Stop: 07/11/18 08:59 Last Admin: 05/19/18 17:16 Dose: 40 mg Petrolatum (Vaseline Oint) 1 appl TP BID [facility] Stop: 07/16/18 16:59 Last Admin: 05/19/18 17:16 Dose: 1 appl Simvastatin (Zocor) 20 mg PO HS [facility]; Protocol Stop: 07/10/18 20:59 Last Admin: 05/18/18 20:15 Dose: 20 mg Sucralfate (Carafate) 1 gm GT QID [facility] Stop: 07/10/18 20:59 Last Admin: 05/19/18 16:57 Dose: 1 gm Theophylline (El-Dur) 100 mg GT BID [facility] Stop: 07/17/18 16:59 Last Admin: 05/19/18 17:14 Dose: 100 mg Zinc Sulfate (Zinc Sulfate) 220 mg GT DAILY [facility] Stop: 07/11/18 08:59 Last Admin: 05/19/18 11:06 Dose: 220 mg - Procedures Procedures: Procedures Procedure Code Date AIRWAYS SURGICAL PROCEDURE 97630 03/03/16 BLOOD TRANSFUSION SERVICE 05232 09/27/17 CHANGE FEEDING DEVICE IN UP INTEST TRACT, SHEARING MACHINE FEEDER APPROACH [id number] 12/10/16 CHANGE GASTROSTOMY TUBE 57286 06/06/13 CONTINUOUS INVASIVE MECHANICAL VENTILATION <96 CONSEC HRS 96.71 02/02/13 CONTINUOUS INVASIVE MECHANICAL VENTILATION =/>96 CONSEC HRS 96.72 06/06/13 DESTRUCTION OF BLADDER, ENDO [id number] 05/11/18 [place] [address] 03/03/16 IMMUNIZATION ADMIN 49501 03/03/16 INFLUENZA VACCINATION 99.52 02/02/13 INSERT NON-TUNNEL CV CATH 84813 03/03/16 INSERTION OF INFUSION DEV INTO SUP VENA CAVA, PERC APPROACH [id number] 03/03/16 INSJ PICC 5 YR+ W/O IMAGING 79487 02/02/13 INTRODUCTION OF SERUM/TOX/VACCINE INTO MUSCLE, PERC APPROACH [id number] 03/03/16 OTHER GASTROSTOMY 43.19 06/03/10 REPLACE GASTROSTOMY TUBE 97.02 06/06/13 RESPIRATORY VENTILATION, GREATER THAN 96 CONSECUTIVE HOURS [id number] 05/11/18 TRANSFUSE NONAUT RED BLOOD CELLS IN PERIPH VEIN, PERC 91616S1 09/27/17 VACCINATION NEC 99.55 02/02/13 VENOUS CATHETERIZATION NEC 38.93 02/02/13 VENT MGMT INPAT INIT DAY 01903 03/03/16 VENT MGMT INPAT SUBQ DAY 92322 03/03/16 Nutritional Asmnt/Malnutr-PDOC - Dietary Evaluation Malnutrition Findings (Please click <Entered> for more info): Nutritional Asmnt/Malnutrition Start: 05/12/18 14: 39 Text: Status: Complete Freq: Protocol: Document 05/12/18 14:39 RHAQUE (Rec: 05/12/18 14:59 RHAQUE [id number]) Nutritional Asmnt/Malnutrition Patient General Information Nutritional Screening High Risk Consult Diagnosis UTI, GI bleed Pertinent Medical Hx/Surgical Hx Ventilator dependent Resp failure, Parkinson's, Seizure, Dementia, 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 Pt is trached to a ventilator. Current TF provides 1300ml/day volume, 1560 kcal/day, 78g Protein/ day. 1047 ml water total. Current Diet Order/ Nutrition Support Tube feeding Glucerna 1.2 65ml /hr x 20hrs Patient / S.O Not Indicated Pertinent Medications Docusate, Gemfibrozil, Insulin Aspart, Insulin Novolin, Lactulose, Synthroid, Metoclopramide, Ondansetron, Simvastatin Pertinent Labs (05/12) BUN 65, Na+ 135, Gluc 214, POC Gluc 241 Nutritional Hx/Data Height 1.63 m Height (Calculated Centimeters) 162.6 Current Weight (lbs) 78.018 kg Weight (Calculated Kilograms) 78.0 Weight (Calculated Grams) 51481.9 [employer] Body Weight 120 % [employer] Body Weight 135 Body Mass Index (BMI) 29.5 GI Symptoms Last BM No Noted B.M. Cultural/Ethnic/Gnosticism Belief None indicated Skin Integrity/Comment: Germán Score 12. On Nursing flowsheet, pressure ulcer on coccyx noted. No wound care note. Unknown stage. Current %PO Negligible < 25% Estimated Nutritional Goals BEE in Kcals: Adj wt of IBW Calories/Kcals/Kg 25-30 Kcals Calculated 5814-4496 Protein: Adj wt of IBW Protein g/k.2-1.5 Protein Calculated 72-90 Fluid: ml 5704-6114 Nutritional Problem 1. Problem Problem Altered Nutritional related Lab values Etiology Uncontrolled hyperglycemia aeb Signs/Symptoms: (05/12) Gluc 214, POC Gluc 241 Malnutrition Alert Is there a minimum of two criteria No selected? Query Text:Check all the applicable criteria. A minimum of two criteria are recommended for diagnosis of either severe or non-severe malnutrition. Malnutrition Related to Morbid Obesity Malnutrition related to morbid obesity No Intervention/Recommendation Comments Continue Tube feeding as ordered. Pt already on DM tube feeding formula. MD to modify insulin regimen as needed for optimal glycemic control. Will modify nutrient needs based on wound care notes. Expected Outcomes/Goals Expected Outcomes/Goals 1. Labs WNL 2. Tube feeding continue to be tolerated 3. F/U in 2-3 days as HR (05/14 -)
[2018-05-19] MEDS: Amikacin 500 mg in D5W 100mL (Q24HR) IV SCH (19:36)
[2018-05-19] MEDS: Chlorhexidine Gluconate 0.12% 15mL Mouthwash MM SCH ×2 (19:39→20:00)
[2018-05-19] MEDS: Lactobacillus Rhamnosus GG 15 Billion CFU CAP.SPRINK PO SCH (19:39)
[2018-05-19] MEDS: INSULIN 70/30 100 UNITS/ML SUBQ SCH (22:30)
[2018-05-20] MEDS: INSULIN ASPART, RECOMBINANT 100 UNITS/ML SUBQ SCH ×4 (00:31→17:58)
[2018-05-20] MEDS: Albuterol/Ipratropium Neb 3 ML AERS HHN SCH ×4 (01:00→19:26)
[2018-05-20 04:28] LABS: % BASOPHILS 0.6 % (0.0-2.0); % LYMPHOCYTES 9.8 % (20.0-50.0); % MONOCYTES 4.5 % (2.0-10.0); % NEUTROPHILS 82.1 % (40.0-80.0); BASOPHILE ABSOLUTE 0.1 Th/cumm (0-0.2); EOSINOPHILE ABSOLUTE 0.4 Th/cmm (0.1-0.4); HEMATOCRIT 25.4 % (41.0-60); HEMOGLOBIN 8.5 gm/dL (12-16); LYMPHOCYTE ABSOLUTE 1.3 Th/cmm (1.5-3.0); MEAN CELL VOLUME 82.6 fl (81-100); MEAN CORPUSCULAR HEMOGLOBIN 27.7 pg (27.0-31.0); MEAN CORPUSCULAR HGB CONC 33.5 pg (28.0-36.0); MEAN PLATELET VOLUME 7.7 fl; MONOCYTE ABSOLUTE 0.6 Th/cmm (0.3-1.0); PLATELET COUNT 336 Th/cmm (150-400); RED BLOOD COUNT 3.07 Mil/cmm (3.80-5.20); WHITE BLOOD COUNT 13.4 Th/cmm (4.8-10.8)
[2018-05-20] MEDS: Piperacillin Sodium/Tazobact 2.25 GM in Sodium Chloride 0.9% 100 ML IV SCH ×3 (04:31→21:00)
[2018-05-20 05:05] LABS: ANION GAP 12.1 (7.0-16.0); BUN - UREA NITROGEN 15 mg/dL (7-25); CALCIUM SERUM 8.7 mg/dL (8.6-10.3); CHLORIDE 110 mEq/L (98-107); CREATININE - SERUM 0.8 mg/dL (0.6-1.2); GLUCOSE 155 mg/dL (70-105); POTASSIUM SERUM 4.1 mEq/L (3.5-5.1); SODIUM SERUM 138 mEq/L (136-145)
[2018-05-20] MEDS: Levothyroxine 0.1 Mg Tab GT SCH (06:45)
[2018-05-20] MEDS: Chlorhexidine Gluconate 0.12% 15mL Mouthwash MM SCH ×2 (09:10→20:00)
[2018-05-20] MEDS: Ferrous Sulfate 300 MG/5 ML UDC GT SCH (09:11)
[2018-05-20] MEDS: Theophylline 80 mg/15 mL UDC GT SCH ×2 (09:12→16:32)
[2018-05-20] MEDS: Benztropine 1 MG TAB GT SCH ×2 (09:13→16:35)
[2018-05-20] MEDS: Petrolatum (White) Oint 0.6 Oz Tube TP SCH ×2 (09:13→16:32)
[2018-05-20] MEDS: Multivitamin w/ Minerals Tab GT SCH (09:14)
[2018-05-20] MEDS: Lactobacillus Rhamnosus GG 15 Billion CFU CAP.SPRINK GT SCH (09:14)
[2018-05-20] MEDS: Lactobacillus Rhamnosus GG 15 Billion CFU CAP.SPRINK PO SCH (09:15)
[2018-05-20] MEDS: INSULIN 70/30 100 UNITS/ML SUBQ SCH ×2 (09:16→20:54)
[2018-05-20] MEDS ORDERED: Amikacin 500 mg in D5W 100mL (Q24HR) IV ONE (11:30)
--- NOTE | 2018-05-20 12:33 | Internal Medicine Prog Note ---
Internal Medicine Subjective - Subjective Service Date: 05/20/18 Patient is:: asleep, non-verbal, non-interactive, eyes closed, in bed, congested Patient Complaints of:: congestion Per staff patient has:: no adverse event, no episodes of fall, tolerating meds Internal Medicine Objective - Results Result Diagrams: 05/20/18 04:00 05/20/18 04:00 Recent Labs: Laboratory Last Values WBC 13.4 Th/cmm (4.8-10.8) H D 05/20/18 04:00 RBC 3.07 Mil/cmm (3.80-5.20) L 05/20/18 04:00 Hgb 8.5 gm/dL (12-16) L 05/20/18 04:00 Hct 25.4 % (41.0-60) L 05/20/18 04:00 MCV 82.6 fl (81-100) 05/20/18 04:00 MCH 27.7 pg (27.0-31.0) 05/20/18 04:00 MCHC Differential 33.5 pg (28.0-36.0) 05/20/18 04:00 RDW 16.0 % (11.5-20.0) 05/20/18 04:00 Plt Count 336 Th/cmm (150-400) 05/20/18 04:00 MPV 7.7 fl 05/20/18 04:00 Add Manual Diff YES 05/15/18 04:20 Neutrophils % 82.1 % (40.0-80.0) H 05/20/18 04:00 Band Neutrophils % 0 % (0-10) 05/15/18 04:20 Lymphocytes % 9.8 % (20.0-50.0) L 05/20/18 04:00 Monocytes % 4.5 % (2.0-10.0) 05/20/18 04:00 Eosinophils % 3.0 % (0.0-5.0) 05/20/18 04:00 Basophils % 0.6 % (0.0-2.0) 05/20/18 04:00 Neutrophils (Manual) 80 % (40-80) 05/15/18 04:20 Lymphocytes 14 % (20-50) L 05/15/18 04:20 Monocytes 6 % (2-10) 05/15/18 04:20 Eosinophils 2 % (0-5) 05/12/18 07:10 Basophils 0 % (0-3) 05/12/18 07:10 PT 10.8 SECONDS (9.5-11.5) 05/17/18 04:35 INR 1.04 (0.5-1.4) 05/17/18 04:35 PTT (Actin FS) 26.2 SECONDS (26.0-38.0) 05/17/18 04:35 Sodium 138 mEq/L (136-145) 05/20/18 04:00 Potassium 4.1 mEq/L (3.5-5.1) 05/20/18 04:00 Chloride 110 mEq/L (98-107) H 05/20/18 04:00 Carbon Dioxide 20.0 mEq/L (21.0-31.0) L 05/20/18 04:00 Anion Gap 12.1 (7.0-16.0) 05/20/18 04:00 BUN 15 mg/dL (7-25) 05/20/18 04:00 Creatinine 0.8 mg/dL (0.6-1.2) 05/20/18 04:00 Est GFR ( Amer) TNP 05/20/18 04:00 Est GFR (Non-Af Amer) TNP 05/20/18 04:00 BUN/Creatinine Ratio 18.8 05/20/18 04:00 Glucose 155 mg/dL (70-105) H 05/20/18 04:00 POC Glucose 174 MG/DL (70 - 105) H 05/20/18 09:25 Whole Bld Lactic Acid 1.45 mmol/L (0.60-1.99) 05/11/18 15:45 Calcium 8.7 mg/dL (8.6-10.3) 05/20/18 04:00 Phosphorus 3.9 mg/dL (2.5-5.0) 05/11/18 15:45 Magnesium 2.2 mg/dL (1.9-2.7) 05/19/18 04:25 Iron 49 ug/dL (27-139) 05/12/18 07:10 TIBC 264 ug/dL (250-450) 05/12/18 07:10 Iron Saturation 19 % (15-55) 05/12/18 07:10 Unsaturated IBC 215 ug/dL (118-369) 05/12/18 07:10 Total Bilirubin 0.3 mg/dL (0.3-1.0) 05/11/18 15:45 AST 13 U/L (13-39) 05/11/18 15:45 ALT 10 U/L (7-52) 05/11/18 15:45 Alkaline Phosphatase 81 U/L (34-104) 05/11/18 15:45 Ammonia 59 umol/L (16-53) H 05/13/18 04:10 B-Natriuretic Peptide 119.0 pg/mL (5.0-100.0) H 05/19/18 04:25 Total Protein 8.3 gm/dL (6.0-8.3) 05/11/18 15:45 Albumin 3.6 gm/dL (3.7-5.3) L 05/11/18 15:45 Globulin 4.7 gm/dL 05/11/18 15:45 Albumin/Globulin Ratio 0.8 (1.0-1.8) L 05/11/18 15:45 Vitamin B12 1516 pg/mL (232-1245) H 05/12/18 07:10 Folic Acid >20.0 ng/mL (>3.0) 05/12/18 07:10 TSH 1.25 uIU/ml (0.34-5.60) 05/11/18 15:45 Urine Source CATH 05/11/18 16:50 Urine Color BROWN 05/11/18 16:50 Urine Clarity CLOUDY (CLEAR) H 05/11/18 16:50 Urine pH 7.0 (4.6 - 8.0) 05/11/18 16:50 Ur Specific [place] 1.010 (1.005-1.030) 05/11/18 16:50 Urine Protein 100 mg/dL (NEGATIVE) H 05/11/18 16:50 Urine Glucose (UA) NEGATIVE mg/dL (NEGATIVE) 05/11/18 16:50 Urine Ketones NEGATIVE mg/dL (NEGATIVE) 05/11/18 16:50 Urine Blood LARGE (NEGATIVE) H 05/11/18 16:50 Urine Nitrate NEGATIVE (NEGATIVE) 05/11/18 16:50 Urine Bilirubin SMALL (NEGATIVE) H 05/11/18 16:50 Urine Urobilinogen 0.2 E.U./dL (0.2 - 1.0) 05/11/18 16:50 Ur Leukocyte Esterase LARGE (NEGATIVE) H 05/11/18 16:50 Urine RBC 25-50 /hpf (0-5) H 05/11/18 16:50 Urine WBC 50-100 /hpf (0-5) H 05/11/18 16:50 Ur Epithelial Cells MODERATE /lpf (FEW) 05/11/18 16:50 Urine Bacteria 4+ /hpf (NONE SEEN) H 05/11/18 16:50 Amikacin Peak 27.9 ug/mL (20.0-30.0) 05/15/18 16:40 Amikacin Trough 6.4 ug/mL (1.0-8.0) 05/15/18 13:50 Urine Opiates Screen POSITIVE (NEGATIVE) H 05/11/18 16:50 Urine Methadone Screen NEGATIVE (NEGATIVE) 05/11/18 16:50 Ur Barbiturates Screen NEGATIVE (NEGATIVE) 05/11/18 16:50 Ur Tricyclics Screen NEGATIVE (NEGATIVE) 05/11/18 16:50 Levetiracetam 51.3 ug/mL (10.0-40.0) H 05/11/18 15:45 Ur Phencyclidine Scrn NEGATIVE (NEGATIVE) 05/11/18 16:50 Amphetamines Screen NEGATIVE (NEGATIVE) 05/11/18 16:50 U Methamphetamines Scrn NEGATIVE (NEGATIVE) 05/11/18 16:50 U Benzodiazepines Scrn NEGATIVE (NEGATIVE) 05/11/18 16:50 U Cocaine Metab Screen NEGATIVE (NEGATIVE) 05/11/18 16:50 U Cannabinoids Screen NEGATIVE (NEGATIVE) 05/11/18 16:50 Blood Type A POSITIVE 05/16/18 09:30 Rho(D) Type Cancelled 05/11/18 16:48 Antibody Screen NEGATIVE 05/16/18 09:30 Crossmatch See Detail 05/16/18 09:30 BBK History Checked Cancelled 05/11/18 16:48 - Physical Exam Vitals and I&O: Vital Signs Temp 97.6 F 05/20/18 08:00 Pulse 79 05/20/18 11:27 Resp 18 05/20/18 11:00 BP 146/74 05/20/18 11:00 Pulse Ox 100 05/20/18 11:27 Intake & Output 05/19/18 05/20/18 05/20/18 18:59 06:59 18:59 Intake Total 2882 2117 40 Output Total 3175 1300 Balance -293 817 40 Weight (lbs) 167 lb 200 lb 192 lb 9.6 oz Intake: Intake, IV Amount 102 1402 Amikacin 500 mg In 102 102 Dextrose 5% 100 ml @ 200 mls/hr IV Q24HR [facility] Rx#: [id number] Piperacillin Sodium/ 300 Tazobact 2.25 gm In Sodium Chloride 0.9% 100 ml @ 100 mls/hr IV Q8HR [facility] Rx#:[id number] Sodium Chloride 0.9% 1, 1000 000 ml @ 30 mls/hr IV . Q24H [facility] Rx#:[id number] Oral 500 0 40 Tube Feeding 1130 715 Other 1150 Output: Gastric Drainage 0 Urine 2325 1300 Other 850 Other: # Bowel Movements 1 2 Stool Characteristics Soft Soft Soft Brown Brown Weight Source Estimated Estimated Bedscale Active Medications: Current Medications Acetaminophen (Tylenol 650mg/20.3ml Suspension) 650 mg GT Q6HR PRN PRN Reason: Mild Pain or Fever >101 Stop: 07/10/18 19:13 Last Admin: 05/11/18 21:39 Dose: 650 mg Acetaminophen/Hydrocodone Bitart ([place] 5mg/325mg) 1 tab GT Q6H PRN PRN Reason: Severe Pain Stop: 07/10/18 19:13 Acetylcysteine (Mucomyst 20%) 2 ml HHN Q6HRT [facility] Stop: 07/11/18 00:59 Last Admin: 05/20/18 06:12 Dose: 2 ml Albuterol Sulfate (Albuterol 2.5mg/3ml Neb Ud) 2.5 mg HHN Q2HRT PRN PRN Reason: Shortness of Breath or Wheeze Stop: 07/10/18 19:22 Albuterol/Ipratropium (Duoneb Neb) 3 ml HHN Q6HRT [facility] Stop: 07/11/18 00:59 Last Admin: 05/20/18 06:12 Dose: 3 ml Albuterol/Ipratropium (Duoneb Neb) 3 ml HHN Q2HRT PRN PRN Reason: Wheezing Stop: 07/10/18 19:13 Amlodipine Besylate (Norvasc) 5 mg GT DAILY [facility] Stop: 07/11/18 08:59 Last Admin: 05/20/18 09:11 Dose: 5 mg Atropine Sulfate (Atropine) 1 mg IVP Q4H PRN PRN Reason: Cardiac Arrhythmia (HR < 35) Stop: 07/16/18 22:31 Benztropine Mesylate (Cogentin) 1 mg GT BID [facility] Stop: 07/11/18 08:59 Last Admin: 05/20/18 09:13 Dose: 1 mg Carbidopa/Levodopa (Sinemet 25mg-100 Mg) 1 tab GT DAILY [facility] Stop: 07/11/18 08:59 Last Admin: 05/20/18 09:13 Dose: 1 tab Chlorhexidine Gluconate (Peridex) 15 ml MM 08,1999 [facility] Stop: 07/10/18 19:59 Last Admin: 05/20/18 09:10 Dose: 15 ml Docusate Sodium (Colace) 250 mg PO BID [facility] Stop: 07/11/18 08:59 Last Admin: 05/20/18 09:14 Dose: 250 mg Enalaprilat (Vasotec) 1.25 mg IVP Q6H PRN PRN Reason: SBP ABOVE 160 Stop: 07/16/18 22:31 Last Admin: 05/17/18 23:58 Dose: 1.25 mg Ferrous Sulfate (Iron) 330 mg GT DAILY [facility] Stop: 07/11/18 08:59 Last Admin: 05/20/18 09:11 Dose: 330 mg Gemfibrozil (Lopid) 600 mg GT BID [facility] Stop: 07/11/18 08:59 Last Admin: 05/20/18 09:14 Dose: 600 mg Piperacillin Sod/Tazobactam (Sod 2.25 gm/ Sodium Chloride) 100 mls @ 100 mls/ hr IV Q8HR [facility] Stop: 07/10/18 20:59 Last Infusion: 05/20/18 05:31 Dose: Infused Amikacin Sulfate 500 mg/ (Dextrose) 102 mls @ 200 mls/hr IV Q24HR [facility] Stop: 07/13/18 14:59 Last Infusion: 05/19/18 19:43 Dose: Infused Sodium Chloride (Nacl 0.9%) 1,000 mls @ 30 mls/hr IV .Q24H [facility] Stop: 07/18/18 13:29 Last Infusion: 05/20/18 06:00 Dose: Infused Insulin Aspart (Novolog) 0 units SUBQ Q6H [facility]; Protocol Stop: 07/11/18 00:00 Last Admin: 05/20/18 12:26 Dose: 2 units Insulin Human Isoph/Insulin Regular (Novolin 70/30) 22 units SUBQ HS [facility]; Protocol Stop: 07/10/18 20:59 Last Admin: 05/19/18 22:30 Dose: 22 units Insulin Human Isoph/Insulin Regular (Novolin 70/30) 15 units SUBQ DAILY [facility]; Protocol Stop: 07/19/18 08:59 Last Admin: 05/20/18 09:16 Dose: 15 units Ipratropium [place] (Atrovent Neb 0.5mg/2.5ml) 0.5 mg HHN Q2HRT PRN PRN Reason: Shortness of Breath or Wheeze Stop: 07/10/18 19:22 Lactobacillus Rhamnosus (Culturelle 15b) 1 each GT DAILY [facility] Stop: 07/11/18 08:59 Last Admin: 05/20/18 09:14 Dose: 1 each Lactobacillus Rhamnosus (Culturelle 15b) 1 each PO DAILY [facility] Stop: 07/17/18 15:59 Last Admin: 05/20/18 09:15 Dose: 1 each Lactulose (Cephulac) 20 gm GT PRN PRN PRN Reason: BOWEL MANAGEMENT Stop: 07/10/18 19:13 Levetiracetam (Keppra) 1,000 mg GT Q12HR [facility] Stop: 07/11/18 08:59 Last Admin: 05/19/18 20:36 Dose: 1,000 mg Levothyroxine Sodium (Synthroid) 0.1 mg GT QDAC [facility] Stop: 07/11/18 07:29 Last Admin: 05/20/18 06:45 Dose: 0.1 mg Lorazepam (Ativan) 1 mg IV Q4H PRN; Protocol PRN Reason: Seizure Stop: 07/10/18 19:22 Metoclopramide HCl (Reglan) 10 mg GT Q8HR [facility] Stop: 07/12/18 12:59 Last Admin: 05/20/18 04:31 Dose: 10 mg Miscellaneous (Amikacin Iv Per Pharmacy) 1 ea [facility] PRN PRN PRN Reason: PROTOCOL Stop: 07/12/18 15:36 Miscellaneous (Probiotic Screen) 1 ea [facility] PRN PRN PRN Reason: PROTOCOL Stop: 07/17/18 15:12 Ondansetron HCl (Zofran) 4 mg IV Q8H PRN PRN Reason: Nausea / Vomiting Stop: 07/10/18 19:23 Pantoprazole Sodium (Protonix) 40 mg IVP BID [facility] Stop: 07/11/18 08:59 Last Admin: 05/20/18 09:13 Dose: 40 mg Petrolatum (Vaseline Oint) 1 appl TP BID [facility] Stop: 07/16/18 16:59 Last Admin: 05/20/18 09:13 Dose: 1 appl Simvastatin (Zocor) 20 mg PO HS [facility]; Protocol Stop: 07/10/18 20:59 Last Admin: 05/19/18 20:36 Dose: 20 mg Sucralfate (Carafate) 1 gm GT QID [facility] Stop: 07/10/18 20:59 Last Admin: 05/20/18 09:15 Dose: 1 gm Theophylline (El-Dur) 100 mg GT BID [facility] Stop: 07/17/18 16:59 Last Admin: 05/20/18 09:12 Dose: 100 mg Zinc Sulfate (Zinc Sulfate) 220 mg GT DAILY [facility] Stop: 07/11/18 08:59 Last Admin: 05/20/18 09:14 Dose: 220 mg General: congested, demented, obtunded HEENT: NC/AT, PERRLA Neck: Supple, No JVD, No LAD, + trach, deformity Lungs: congested, rales, ronchi Cardiovascular: RRR, Normal S1, Normal S2, with murmur Abdomen: soft, globular, +GT, positive bowel sound Extremities: excoriation, contracture, deformity Neurological: no change, unable to follow command, bedbound - Procedures Procedures: Procedures Procedure Code Date AIRWAYS SURGICAL PROCEDURE 20153 03/03/16 BLOOD TRANSFUSION SERVICE 65073 09/27/17 CHANGE FEEDING DEVICE IN UP INTEST TRACT, ADMISSIONS COORDINATOR APPROACH [id number] 12/10/16 CHANGE GASTROSTOMY TUBE 15053 06/06/13 CONTINUOUS INVASIVE MECHANICAL VENTILATION <96 CONSEC HRS 96.71 02/02/13 CONTINUOUS INVASIVE MECHANICAL VENTILATION =/>96 CONSEC HRS 96.72 06/06/13 DESTRUCTION OF BLADDER, ENDO [id number] 05/11/18 [place] [address] 03/03/16 IMMUNIZATION ADMIN 03412 03/03/16 INFLUENZA VACCINATION 99.52 02/02/13 INSERT NON-TUNNEL CV CATH 60748 03/03/16 INSERTION OF INFUSION DEV INTO SUP VENA CAVA, PERC APPROACH [id number] 03/03/16 INSJ PICC 5 YR+ W/O IMAGING 40846 02/02/13 INTRODUCTION OF SERUM/TOX/VACCINE INTO MUSCLE, PERC APPROACH [id number] 03/03/16 OTHER GASTROSTOMY 43.19 06/03/10 REPLACE GASTROSTOMY TUBE 97.02 06/06/13 RESPIRATORY VENTILATION, GREATER THAN 96 CONSECUTIVE HOURS [id number] 05/11/18 TRANSFUSE NONAUT RED BLOOD CELLS IN PERIPH VEIN, PERC 37557Y1 09/27/17 VACCINATION NEC 99.55 02/02/13 VENOUS CATHETERIZATION NEC 38.93 02/02/13 VENT MGMT INPAT INIT DAY 02199 03/03/16 VENT MGMT INPAT SUBQ DAY 47942 03/03/16 Internal Medicine Assmt/Plan - Assessment Assessment: acute uti with esbl sputum pseudomonas Anemia--severe hematuria possible pneumonia ventilator dependent respiratory failure chronic hydrocephalus, dementia, decubitus ulcer, diabetes, obesity, Parkinson , leukocytosis, renal insufficiency , hyponatremia. - Plan Plan: monitor h/h closely cont vent support follow up labs in am uro is following continue current plan of care Nutritional Asmnt/Malnutr-PDOC - Dietary Evaluation Malnutrition Findings (Please click <Entered> for more info): Nutritional Asmnt/Malnutrition Start: 05/12/18 14: 39 Text: Status: Complete Freq: Protocol: Document 05/12/18 14:39 RHAQUE (Rec: 05/12/18 14:59 RHAQUE [id number]) Nutritional Asmnt/Malnutrition Patient General Information Nutritional Screening High Risk Consult Diagnosis UTI, GI bleed Pertinent Medical Hx/Surgical Hx Ventilator dependent Resp failure, Parkinson's, Seizure, Dementia, Chronic Hydrocephalus w [employer] shunt, DM, Decubitus Ulcer, Subjective Information Consult received for Blood Glucose 233 with Hx of DM while on TF. Pt is trached to a ventilator. Current TF provides 1300ml/day volume, 1560 kcal/day, 78g Protein/ day. 1047 ml water total. Current Diet Order/ Nutrition Support Tube feeding Glucerna 1.2 65ml /hr x 20hrs Patient / S.O Not Indicated Pertinent Medications Docusate, Gemfibrozil, Insulin Aspart, Insulin Novolin, Lactulose, Synthroid, Metoclopramide, Ondansetron, Simvastatin Pertinent Labs (05/12) BUN 65, Na+ 135, Gluc 214, POC Gluc 241 Nutritional Hx/Data Height 5 ft 4 in Height (Calculated Centimeters) 162.6 Current Weight (lbs) 172 lb Weight (Calculated Kilograms) 78.0 Weight (Calculated Grams) 68679.9 [place] Body Weight 120 % [place] Body Weight 135 Body Mass Index (BMI) 29.5 GI Symptoms Last BM No Noted B.M. Cultural/Ethnic/Yazdanism Belief None indicated Skin Integrity/Comment: Germán Score 12. On Nursing flowsheet, pressure ulcer on coccyx noted. No wound care note. Unknown stage. Current %PO Negligible < 25% Estimated Nutritional Goals BEE in Kcals: Adj wt of IBW Calories/Kcals/Kg 25-30 Kcals Calculated 3885-1207 Protein: Adj wt of IBW Protein g/k.2-1.5 Protein Calculated 72-90 Fluid: ml 4329-4035 Nutritional Problem 1. Problem Problem Altered Nutritional related Lab values Etiology Uncontrolled hyperglycemia aeb Signs/Symptoms: (05/12) Gluc 214, POC Gluc 241 Malnutrition Alert Is there a minimum of two criteria No selected? Query Text:Check all the applicable criteria. A minimum of two criteria are recommended for diagnosis of either severe or non-severe malnutrition. Malnutrition Related to Morbid Obesity Malnutrition related to morbid obesity No Intervention/Recommendation Comments Continue Tube feeding as ordered. Pt already on DM tube feeding formula. MD to modify insulin regimen as needed for optimal glycemic control. Will modify nutrient needs based on wound care notes. Expected Outcomes/Goals Expected Outcomes/Goals 1. Labs WNL 2. Tube feeding continue to be tolerated 3. F/U in 2-3 days as HR (05/14 -)
[2018-05-20] MEDS: Levetiracetam 500 mg/5mL 5mL UDSyr *for ORAL USE ONLY GT SCH ×2 (12:37→20:58)
--- NOTE | 2018-05-20 13:27 | General Progress Note ---
Subjective - Review of Systems Service Date: 05/20/18 Subjective: Patient still on ventilator with tracheostomy is congested lethargic Objective - Results Result Diagrams: 05/20/18 04:00 05/20/18 04:00 Recent Labs: Laboratory Last Values WBC 13.4 Th/cmm (4.8-10.8) H D 05/20/18 04:00 RBC 3.07 Mil/cmm (3.80-5.20) L 05/20/18 04:00 Hgb 8.5 gm/dL (12-16) L 05/20/18 04:00 Hct 25.4 % (41.0-60) L 05/20/18 04:00 MCV 82.6 fl (81-100) 05/20/18 04:00 MCH 27.7 pg (27.0-31.0) 05/20/18 04:00 MCHC Differential 33.5 pg (28.0-36.0) 05/20/18 04:00 RDW 16.0 % (11.5-20.0) 05/20/18 04:00 Plt Count 336 Th/cmm (150-400) 05/20/18 04:00 MPV 7.7 fl 05/20/18 04:00 Add Manual Diff YES 05/15/18 04:20 Neutrophils % 82.1 % (40.0-80.0) H 05/20/18 04:00 Band Neutrophils % 0 % (0-10) 05/15/18 04:20 Lymphocytes % 9.8 % (20.0-50.0) L 05/20/18 04:00 Monocytes % 4.5 % (2.0-10.0) 05/20/18 04:00 Eosinophils % 3.0 % (0.0-5.0) 05/20/18 04:00 Basophils % 0.6 % (0.0-2.0) 05/20/18 04:00 Neutrophils (Manual) 80 % (40-80) 05/15/18 04:20 Lymphocytes 14 % (20-50) L 05/15/18 04:20 Monocytes 6 % (2-10) 05/15/18 04:20 Eosinophils 2 % (0-5) 05/12/18 07:10 Basophils 0 % (0-3) 05/12/18 07:10 PT 10.8 SECONDS (9.5-11.5) 05/17/18 04:35 INR 1.04 (0.5-1.4) 05/17/18 04:35 PTT (Actin FS) 26.2 SECONDS (26.0-38.0) 05/17/18 04:35 Sodium 138 mEq/L (136-145) 05/20/18 04:00 Potassium 4.1 mEq/L (3.5-5.1) 05/20/18 04:00 Chloride 110 mEq/L (98-107) H 05/20/18 04:00 Carbon Dioxide 20.0 mEq/L (21.0-31.0) L 05/20/18 04:00 Anion Gap 12.1 (7.0-16.0) 05/20/18 04:00 BUN 15 mg/dL (7-25) 05/20/18 04:00 Creatinine 0.8 mg/dL (0.6-1.2) 05/20/18 04:00 Est GFR ( Amer) TNP 05/20/18 04:00 Est GFR (Non-Af Amer) TNP 05/20/18 04:00 BUN/Creatinine Ratio 18.8 05/20/18 04:00 Glucose 155 mg/dL (70-105) H 05/20/18 04:00 POC Glucose 174 MG/DL (70 - 105) H 05/20/18 09:25 Whole Bld Lactic Acid 1.45 mmol/L (0.60-1.99) 05/11/18 15:45 Calcium 8.7 mg/dL (8.6-10.3) 05/20/18 04:00 Phosphorus 3.9 mg/dL (2.5-5.0) 05/11/18 15:45 Magnesium 2.2 mg/dL (1.9-2.7) 05/19/18 04:25 Iron 49 ug/dL (27-139) 05/12/18 07:10 TIBC 264 ug/dL (250-450) 05/12/18 07:10 Iron Saturation 19 % (15-55) 05/12/18 07:10 Unsaturated IBC 215 ug/dL (118-369) 05/12/18 07:10 Total Bilirubin 0.3 mg/dL (0.3-1.0) 05/11/18 15:45 AST 13 U/L (13-39) 05/11/18 15:45 ALT 10 U/L (7-52) 05/11/18 15:45 Alkaline Phosphatase 81 U/L (34-104) 05/11/18 15:45 Ammonia 59 umol/L (16-53) H 05/13/18 04:10 B-Natriuretic Peptide 119.0 pg/mL (5.0-100.0) H 05/19/18 04:25 Total Protein 8.3 gm/dL (6.0-8.3) 05/11/18 15:45 Albumin 3.6 gm/dL (3.7-5.3) L 05/11/18 15:45 Globulin 4.7 gm/dL 05/11/18 15:45 Albumin/Globulin Ratio 0.8 (1.0-1.8) L 05/11/18 15:45 Vitamin B12 1516 pg/mL (232-1245) H 05/12/18 07:10 Folic Acid >20.0 ng/mL (>3.0) 05/12/18 07:10 TSH 1.25 uIU/ml (0.34-5.60) 05/11/18 15:45 Urine Source CATH 05/11/18 16:50 Urine Color BROWN 05/11/18 16:50 Urine Clarity CLOUDY (CLEAR) H 05/11/18 16:50 Urine pH 7.0 (4.6 - 8.0) 05/11/18 16:50 Ur Specific [place] 1.010 (1.005-1.030) 05/11/18 16:50 Urine Protein 100 mg/dL (NEGATIVE) H 05/11/18 16:50 Urine Glucose (UA) NEGATIVE mg/dL (NEGATIVE) 05/11/18 16:50 Urine Ketones NEGATIVE mg/dL (NEGATIVE) 05/11/18 16:50 Urine Blood LARGE (NEGATIVE) H 05/11/18 16:50 Urine Nitrate NEGATIVE (NEGATIVE) 05/11/18 16:50 Urine Bilirubin SMALL (NEGATIVE) H 05/11/18 16:50 Urine Urobilinogen 0.2 E.U./dL (0.2 - 1.0) 05/11/18 16:50 Ur Leukocyte Esterase LARGE (NEGATIVE) H 05/11/18 16:50 Urine RBC 25-50 /hpf (0-5) H 05/11/18 16:50 Urine WBC 50-100 /hpf (0-5) H 05/11/18 16:50 Ur Epithelial Cells MODERATE /lpf (FEW) 05/11/18 16:50 Urine Bacteria 4+ /hpf (NONE SEEN) H 05/11/18 16:50 Amikacin Peak 27.9 ug/mL (20.0-30.0) 05/15/18 16:40 Amikacin Trough 6.4 ug/mL (1.0-8.0) 05/15/18 13:50 Urine Opiates Screen POSITIVE (NEGATIVE) H 05/11/18 16:50 Urine Methadone Screen NEGATIVE (NEGATIVE) 05/11/18 16:50 Ur Barbiturates Screen NEGATIVE (NEGATIVE) 05/11/18 16:50 Ur Tricyclics Screen NEGATIVE (NEGATIVE) 05/11/18 16:50 Levetiracetam 51.3 ug/mL (10.0-40.0) H 05/11/18 15:45 Ur Phencyclidine Scrn NEGATIVE (NEGATIVE) 05/11/18 16:50 Amphetamines Screen NEGATIVE (NEGATIVE) 05/11/18 16:50 U Methamphetamines Scrn NEGATIVE (NEGATIVE) 05/11/18 16:50 U Benzodiazepines Scrn NEGATIVE (NEGATIVE) 05/11/18 16:50 U Cocaine Metab Screen NEGATIVE (NEGATIVE) 05/11/18 16:50 U Cannabinoids Screen NEGATIVE (NEGATIVE) 05/11/18 16:50 Blood Type A POSITIVE 05/16/18 09:30 Rho(D) Type Cancelled 05/11/18 16:48 Antibody Screen NEGATIVE 05/16/18 09:30 Crossmatch See Detail 05/16/18 09:30 BBK History Checked Cancelled 05/11/18 16:48 - Physical Exam Vitals and I&O: Vital Signs Temp 98.7 F 05/20/18 11:00 Pulse 79 05/20/18 11:27 Resp 18 05/20/18 11:00 BP 146/74 05/20/18 11:00 Pulse Ox 100 05/20/18 11:27 Intake & Output 05/19/18 05/20/18 05/20/18 18:59 06:59 18:59 Intake Total 2882 2117 40 Output Total 3175 1300 Balance -293 817 40 Weight (lbs) 75.75 kg 90.718 kg 87.362 kg Intake: Intake, IV Amount 102 1402 Amikacin 500 mg In 102 102 Dextrose 5% 100 ml @ 200 mls/hr IV Q24HR [facility] [place] Rx#: [id number] Piperacillin Sodium/ 300 Tazobact 2.25 gm In Sodium Chloride 0.9% 100 ml @ 100 mls/hr IV Q8HR [facility] [place] Rx#:[id number] Sodium Chloride 0.9% 1, 1000 000 ml @ 30 mls/hr IV . Q24H [facility] [place] Rx#:[id number] Oral 500 0 40 Tube Feeding 1130 715 Other 1150 Output: Gastric Drainage 0 Urine 2325 1300 Other 850 Other: # Bowel Movements 1 2 Stool Characteristics Soft Soft Soft Brown Brown Weight Source Estimated Estimated Bedscale Active Medications: Current Medications Acetaminophen (Tylenol 650mg/20.3ml Suspension) 650 mg GT Q6HR PRN PRN Reason: Mild Pain or Fever >101 Stop: 07/10/18 19:13 Last Admin: 05/11/18 21:39 Dose: 650 mg Acetaminophen/Hydrocodone Bitart ([place] 5mg/325mg) 1 tab GT Q6H PRN PRN Reason: Severe Pain Stop: 07/10/18 19:13 Acetylcysteine (Mucomyst 20%) 2 ml HHN Q6HRT [facility] [place] Stop: 07/11/18 00:59 Last Admin: 05/20/18 06:12 Dose: 2 ml Albuterol Sulfate (Albuterol 2.5mg/3ml Neb Ud) 2.5 mg HHN Q2HRT PRN PRN Reason: Shortness of Breath or Wheeze Stop: 07/10/18 19:22 Albuterol/Ipratropium (Duoneb Neb) 3 ml HHN Q6HRT [facility] [place] Stop: 07/11/18 00:59 Last Admin: 05/20/18 06:12 Dose: 3 ml Albuterol/Ipratropium (Duoneb Neb) 3 ml HHN Q2HRT PRN PRN Reason: Wheezing Stop: 07/10/18 19:13 Amlodipine Besylate (Norvasc) 5 mg GT DAILY [facility] [place] Stop: 07/11/18 08:59 Last Admin: 05/20/18 09:11 Dose: 5 mg Atropine Sulfate (Atropine) 1 mg IVP Q4H PRN PRN Reason: Cardiac Arrhythmia (HR < 35) Stop: 07/16/18 22:31 Benztropine Mesylate (Cogentin) 1 mg GT BID [facility] [place] Stop: 07/11/18 08:59 Last Admin: 05/20/18 09:13 Dose: 1 mg Carbidopa/Levodopa (Sinemet 25mg-100 Mg) 1 tab GT DAILY [facility] Stop: 07/11/18 08:59 Last Admin: 05/20/18 09:13 Dose: 1 tab Chlorhexidine Gluconate (Peridex) 15 ml MM 0800,1999 [facility] [place] Stop: 07/10/18 19:59 Last Admin: 05/20/18 09:10 Dose: 15 ml Docusate Sodium (Colace) 250 mg PO BID [facility] [place] Stop: 07/11/18 08:59 Last Admin: 05/20/18 09:14 Dose: 250 mg Enalaprilat (Vasotec) 1.25 mg IVP Q6H PRN PRN Reason: SBP ABOVE 160 Stop: 07/16/18 22:31 Last Admin: 05/17/18 23:58 Dose: 1.25 mg Ferrous Sulfate (Iron) 330 mg GT DAILY [facility] [place] Stop: 07/11/18 08:59 Last Admin: 05/20/18 09:11 Dose: 330 mg Gemfibrozil (Lopid) 600 mg GT BID [facility] [place] Stop: 07/11/18 08:59 Last Admin: 05/20/18 09:14 Dose: 600 mg Piperacillin Sod/Tazobactam (Sod 2.25 gm/ Sodium Chloride) 100 mls @ 100 mls/ hr IV Q8HR [facility] [place] Stop: 07/10/18 20:59 Last Admin: 05/20/18 12:36 Dose: 100 mls/hr Amikacin Sulfate 500 mg/ (Dextrose) 102 mls @ 200 mls/hr IV Q24HR [facility] [place] Stop: 07/13/18 14:59 Last Infusion: 05/19/18 19:43 Dose: Infused Sodium Chloride (Nacl 0.9%) 1,000 mls @ 30 mls/hr IV .Q24H [facility] [place] Stop: 07/18/18 13:29 Last Infusion: 05/20/18 06:00 Dose: Infused Insulin Aspart (Novolog) 0 units SUBQ Q6H [facility] [place]; Protocol Stop: 07/11/18 00:00 Last Admin: 05/20/18 12:26 Dose: 2 units Insulin Human Isoph/Insulin Regular (Novolin 70/30) 22 units SUBQ HS [facility]; Protocol Stop: 07/10/18 20:59 Last Admin: 05/19/18 22:30 Dose: 22 units Insulin Human Isoph/Insulin Regular (Novolin 70/30) 15 units SUBQ DAILY [facility]; Protocol Stop: 07/19/18 08:59 Last Admin: 05/20/18 09:16 Dose: 15 units Ipratropium [place] (Atrovent Neb 0.5mg/2.5ml) 0.5 mg HHN Q2HRT PRN PRN Reason: Shortness of Breath or Wheeze Stop: 07/10/18 19:22 Lactobacillus Rhamnosus (Culturelle 15b) 1 each GT DAILY [facility] [place] Stop: 07/11/18 08:59 Last Admin: 05/20/18 09:14 Dose: 1 each Lactobacillus Rhamnosus (Culturelle 15b) 1 each PO DAILY [facility] Stop: 07/17/18 15:59 Last Admin: 05/20/18 09:15 Dose: 1 each Lactulose (Cephulac) 20 gm GT PRN PRN PRN Reason: BOWEL MANAGEMENT Stop: 07/10/18 19:13 Levetiracetam (Keppra) 1,000 mg GT Q12HR [facility] [place] Stop: 07/11/18 08:59 Last Admin: 05/20/18 12:37 Dose: 1,000 mg Levothyroxine Sodium (Synthroid) 0.1 mg GT QDAC [facility] [place] Stop: 07/11/18 07:29 Last Admin: 05/20/18 06:45 Dose: 0.1 mg Lorazepam (Ativan) 1 mg IV Q4H PRN; Protocol PRN Reason: Seizure Stop: 07/10/18 19:22 Metoclopramide HCl (Reglan) 10 mg GT Q8HR [facility] [place] Stop: 07/12/18 12:59 Last Admin: 05/20/18 12:37 Dose: 10 mg Miscellaneous (Amikacin Iv Per Pharmacy) 1 ea PRN PRN PRN Reason: PROTOCOL Stop: 07/12/18 15:36 Miscellaneous (Probiotic Screen) 1 ea PRN PRN PRN Reason: PROTOCOL Stop: 07/17/18 15:12 Ondansetron HCl (Zofran) 4 mg IV Q8H PRN PRN Reason: Nausea / Vomiting Stop: 07/10/18 19:23 Pantoprazole Sodium (Protonix) 40 mg IVP BID [facility] [place] Stop: 07/11/18 08:59 Last Admin: 05/20/18 09:13 Dose: 40 mg Petrolatum (Vaseline Oint) 1 appl TP BID [facility] [place] Stop: 07/16/18 16:59 Last Admin: 05/20/18 09:13 Dose: 1 appl Simvastatin (Zocor) 20 mg PO HS [facility]; Protocol Stop: 07/10/18 20:59 Last Admin: 05/19/18 20:36 Dose: 20 mg Sucralfate (Carafate) 1 gm GT QID [facility] [place] Stop: 07/10/18 20:59 Last Admin: 05/20/18 12:37 Dose: 1 gm Theophylline (El-Dur) 100 mg GT BID [facility] [place] Stop: 07/17/18 16:59 Last Admin: 05/20/18 09:12 Dose: 100 mg Zinc Sulfate (Zinc Sulfate) 220 mg GT DAILY [facility] [place] Stop: 07/11/18 08:59 Last Admin: 05/20/18 09:14 Dose: 220 mg General: No acute distress Neck: Supple Cardiovascular: Regular rate Lungs: Normal air movement Abdomen: Bowel sounds, Soft, Other (INTACT GT), no Tender Extremities: Edema (mild) - Procedures Procedures: Procedures Procedure Code Date AIRWAYS SURGICAL PROCEDURE 26019 03/03/16 BLOOD TRANSFUSION SERVICE 52240 09/27/17 CHANGE FEEDING DEVICE IN UP INTEST TRACT, C[employer] SUPERVISOR APPROACH [id number] 12/10/16 CHANGE GASTROSTOMY TUBE 95489 06/06/13 CONTINUOUS INVASIVE MECHANICAL VENTILATION <96 CONSEC HRS 96.71 02/02/13 CONTINUOUS INVASIVE MECHANICAL VENTILATION =/>96 CONSEC HRS 96.72 06/06/13 DESTRUCTION OF BLADDER, ENDO [id number] 05/11/18 [place] 137[address] 03/03/16 IMMUNIZATION ADMIN 21893 03/03/16 INFLUENZA VACCINATION 99.52 02/02/13 INSERT NON-TUNNEL CV CATH 14890 03/03/16 INSERTION OF INFUSION DEV INTO SUP VENA CAVA, PERC APPROACH [id number] 03/03/16 INSJ PICC 5 YR+ W/O IMAGING 12202 02/02/13 INTRODUCTION OF SERUM/TOX/VACCINE INTO MUSCLE, PERC APPROACH [id number] 03/03/16 OTHER GASTROSTOMY 43.19 06/03/10 REPLACE GASTROSTOMY TUBE 97.02 06/06/13 RESPIRATORY VENTILATION, GREATER THAN 96 CONSECUTIVE HOURS [id number] 05/11/18 TRANSFUSE NONAUT RED BLOOD CELLS IN PERIPH VEIN, PERC [id number] 09/27/17 VACCINATION NEC 99.55 02/02/13 VENOUS CATHETERIZATION NEC 38.93 02/02/13 VENT MGMT INPAT INIT DAY 03/03/16 VENT MGMT INPAT SUBQ DAY 03/03/16 Assessment/Plan - Assessment Assessment: Acute respiratory failure on ventilator with tracheostomy Asymptomatic bradycardia Hypothyroid Aspiration pneumonia Hyperlipidemia Urinary tract infection Hematuria Dementia Stage I sacral decubitus ulcer Parkinson's disease Osteoporosis G-tube Protein calorie malnutrition Hyperlipidemia - Plan Plan: Continue present management continue with management continue IV antibiotics Nutritional Asmnt/Malnutr-PDOC - Dietary Evaluation Malnutrition Findings (Please click <Entered> for more info): Nutritional Asmnt/Malnutrition Start: 05/12/18 14: 39 Text: Status: Complete Freq: Protocol: Document 05/12/18 14:39 RHAQUE (Rec: 05/12/18 14:59 RHAQUE [id number]) Nutritional Asmnt/Malnutrition Patient General Information Nutritional Screening High Risk Consult Diagnosis UTI, GI bleed Pertinent Medical Hx/Surgical Hx Ventilator dependent Resp failure, Parkinson's, Seizure, Dementia, Chronic Hydrocephalus w OPTION TRADER shunt, DM, Decubitus Ulcer, Subjective Information Consult received for Blood Glucose 233 with Hx of DM while on TF. Pt is trached to a ventilator. Current TF provides 1300ml/day volume, 1560 kcal/day, 78g Protein/ day. 1047 ml water total. Current Diet Order/ Nutrition Support Tube feeding Glucerna 1.2 65ml /hr x 20hrs Patient / S.O Not Indicated Pertinent Medications Docusate, Gemfibrozil, Insulin Aspart, Insulin Novolin, Lactulose, Synthroid, Metoclopramide, Ondansetron, Simvastatin Pertinent Labs (05/12) BUN 65, Na+ 135, Gluc 214, POC Gluc 241 Nutritional Hx/Data Height 1.63 m Height (Calculated Centimeters) 162.6 Current Weight (lbs) 78.018 kg Weight (Calculated Kilograms) 78.0 Weight (Calculated Grams) 43528.9 [place] Body Weight 120 % [place] Body Weight 135 Body Mass Index (BMI) 29.5 GI Symptoms Last BM No Noted B.M. Cultural/Ethnic/M[employer]on Belief None indicated Skin Integrity/Comment: Germán Score 12. On Nursing flowsheet, pressure ulcer on coccyx noted. No wound care note. Unknown stage. Current %PO Negligible < 25% Estimated Nutritional Goals BEE in Kcals: Adj wt of IBW Calories/Kcals/Kg 25-30 Kcals Calculated 3273-1195 Protein: Adj wt of IBW Protein g/k.2-1.5 Protein Calculated 72-90 Fluid: ml 9854-2921 Nutritional Problem 1. Problem Problem Altered Nutritional related Lab values Etiology Uncontrolled hyperglycemia aeb Signs/Symptoms: (05/12) Gluc 214, POC Gluc 241 Malnutrition Alert Is there a minimum of two criteria No selected? Query Text:Check all the applicable criteria. A minimum of two criteria are recommended for diagnosis of either severe or non-severe malnutrition. Malnutrition Related to Morbid Obesity Malnutrition related to morbid obesity No Intervention/Recommendation Comments Continue Tube feeding as ordered. Pt already on DM tube feeding formula. MD to modify insulin regimen as needed for optimal glycemic control. Will modify nutrient needs based on wound care notes. Expected Outcomes/Goals Expected Outcomes/Goals 1. Labs WNL 2. Tube feeding continue to be tolerated 3. F/U in 2-3 days as HR (05/14 -)
[2018-05-20] MEDS: Sodium Chloride 0.9% 1,000 ML IV SCH (15:05)
[2018-05-20] MEDS: Amikacin 500 mg in D5W 100mL (Q24HR) IV SCH (16:35)
--- NOTE | 2018-05-20 18:05 | Infectious Disease Prog Note ---
Infectious Disease Subjective - Review of Systems Service Date: 05/20/18 Events since last encounter: cc pseudomonas pn hpi- pt amikacin renewed ros no efvr o/e vss chest cvesicular s1s2 abd soft bs + ext pulse Laboratory Results - last 24 hr 05/18/18 05/19/18 05/19/18 17:45 10:49 22:32 WBC RBC Hgb Hct MCV MCH MCHC Differential RDW Plt Count MPV Neutrophils % Lymphocytes % Monocytes % Eosinophils % Basophils % Sodium Potassium Chloride Carbon Dioxide Anion Gap BUN Creatinine Est GFR ( Amer) Est GFR (Non-Af Amer) BUN/Creatinine Ratio Glucose POC Glucose 153 H 151 H 153 H Calcium 05/20/18 05/20/18 05/20/18 00:13 04:00 04:00 WBC 13.4 H D RBC 3.07 L Hgb 8.5 L Hct 25.4 L MCV 82.6 MCH 27.7 MCHC Differential 33.5 RDW 16.0 Plt Count 336 MPV 7.7 Neutrophils % 82.1 H Lymphocytes % 9.8 L Monocytes % 4.5 Eosinophils % 3.0 Basophils % 0.6 Sodium 138 Potassium 4.1 Chloride 110 H Carbon Dioxide 20.0 L Anion Gap 12.1 BUN 15 Creatinine 0.8 Est GFR ( Amer) TNP Est GFR (Non-Af Amer) TNP BUN/Creatinine Ratio 18.8 Glucose 155 H POC Glucose 154 H Calcium 8.7 05/20/18 09:25 WBC RBC Hgb Hct MCV MCH MCHC Differential RDW Plt Count MPV Neutrophils % Lymphocytes % Monocytes % Eosinophils % Basophils % Sodium Potassium Chloride Carbon Dioxide Anion Gap BUN Creatinine Est GFR ( Amer) Est GFR (Non-Af Amer) BUN/Creatinine Ratio Glucose POC Glucose 174 H Calcium Microbiology 05/11/18 15:45 Blood - Final NO GROWTH AFTER 5 DAYS 05/11/18 15:31 Blood - Final NO GROWTH AFTER 5 DAYS 05/12/18 00:10 Sputum Culture - Endotracheal Wash Gram Stain - Final 05/12/18 00:10 Sputum Culture - Endotracheal Wash Sputum Culture - Final Pseudomonas Aeruginosa 05/11/18 16:50 Urine,Clean Catch Urine Culture - Final Klebsiella Pneumoniae Esbl Proteus Mirabilis 05/11/18 12:30 Nares - Final NO MRSA ISOLATED Diagnoses SEPSIS, UNSPECIFIED ORGANISM (05/11/18) ANEMIA, UNSPECIFIED (05/11/18) PNEUMONIA, UNSPECIFIED ORGANISM (05/11/18) CHRONIC RESPIRATORY FAILURE, UNSP W HYPOXIA OR HYPERCAPNIA (05/11/18) URINARY TRACT INFECTION, SITE NOT SPECIFIED (05/11/18) WEAKNESS (05/11/18) 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 (05/11/18) Current Medications Acetaminophen (Tylenol 650mg/20.3ml Suspension) 650 mg GT Q6HR PRN PRN Reason: Mild Pain or Fever >101 Stop: 07/10/18 19:13 Last Admin: 05/11/18 21:39 Dose: 650 mg Acetaminophen/Hydrocodone Bitart (Roy 5mg/325mg) 1 tab GT Q6H PRN PRN Reason: Severe Pain Stop: 07/10/18 19:13 Acetylcysteine (Mucomyst 20%) 2 ml HHN Q6HRT [facility] Stop: 07/11/18 00:59 Last Admin: 05/20/18 13:37 Dose: 2 ml Albuterol Sulfate (Albuterol 2.5mg/3ml Neb Ud) 2.5 mg HHN Q2HRT PRN PRN Reason: Shortness of Breath or Wheeze Stop: 07/10/18 19:22 Albuterol/Ipratropium (Duoneb Neb) 3 ml HHN Q6HRT [facility] Stop: 07/11/18 00:59 Last Admin: 05/20/18 13:37 Dose: 3 ml Albuterol/Ipratropium (Duoneb Neb) 3 ml HHN Q2HRT PRN PRN Reason: Wheezing Stop: 07/10/18 19:13 Amlodipine Besylate (Norvasc) 5 mg GT DAILY [facility] Stop: 07/11/18 08:59 Last Admin: 05/20/18 09:11 Dose: 5 mg Atropine Sulfate (Atropine) 1 mg IVP Q4H PRN PRN Reason: Cardiac Arrhythmia (HR < 35) Stop: 07/16/18 22:31 Benztropine Mesylate (Cogentin) 1 mg GT BID [facility] Stop: 07/11/18 08:59 Last Admin: 05/20/18 16:35 Dose: 1 mg Carbidopa/Levodopa (Sinemet 25mg-100 Mg) 1 tab GT DAILY [facility] Stop: 07/11/18 08:59 Last Admin: 05/20/18 09:13 Dose: 1 tab Chlorhexidine Gluconate (Peridex) 15 ml MM 0800,1999 [facility] Stop: 07/10/18 19:59 Last Admin: 05/20/18 09:10 Dose: 15 ml Docusate Sodium (Colace) 250 mg PO BID [facility] Stop: 07/11/18 08:59 Last Admin: 05/20/18 16:33 Dose: 250 mg Enalaprilat (Vasotec) 1.25 mg IVP Q6H PRN PRN Reason: SBP ABOVE 160 Stop: 07/16/18 22:31 Last Admin: 05/17/18 23:58 Dose: 1.25 mg Ferrous Sulfate (Iron) 330 mg GT DAILY [facility] Stop: 07/11/18 08:59 Last Admin: 05/20/18 09:11 Dose: 330 mg Gemfibrozil (Lopid) 600 mg GT BID [facility] Stop: 07/11/18 08:59 Last Admin: 05/20/18 16:33 Dose: 600 mg Piperacillin Sod/Tazobactam (Sod 2.25 gm/ Sodium Chloride) 100 mls @ 100 mls/ hr IV Q8HR [facility] Stop: 07/10/18 20:59 Last Admin: 05/20/18 12:36 Dose: 100 mls/hr Amikacin Sulfate 500 mg/ (Dextrose) 102 mls @ 200 mls/hr IV Q24HR [facility] Stop: 07/13/18 14:59 Last Admin: 05/20/18 16:35 Dose: 200 mls/hr Sodium Chloride (Nacl 0.9%) 1,000 mls @ 30 mls/hr IV .Q24H [facility] Stop: 07/18/18 13:29 Last Admin: 05/20/18 15:05 Dose: 30 mls/hr Insulin Aspart (Novolog) 0 units SUBQ Q6H [facility]; Protocol Stop: 07/11/18 00:00 Last Admin: 05/20/18 17:58 Dose: 2 units Insulin Human Isoph/Insulin Regular (Novolin 70/30) 22 units SUBQ HS [facility]; Protocol Stop: 07/10/18 20:59 Last Admin: 05/19/18 22:30 Dose: 22 units Insulin Human Isoph/Insulin Regular (Novolin 70/30) 15 units SUBQ DAILY [facility]; Protocol Stop: 07/19/18 08:59 Last Admin: 05/20/18 09:16 Dose: 15 units Ipratropium [place] (Atrovent Neb 0.5mg/2.5ml) 0.5 mg HHN Q2HRT PRN PRN Reason: Shortness of Breath or Wheeze Stop: 07/10/18 19:22 Lactobacillus Rhamnosus (Culturelle 15b) 1 each PO DAILY [facility] Stop: 07/17/18 15:59 Last Admin: 05/20/18 09:15 Dose: 1 each Lactulose (Cephulac) 20 gm GT PRN PRN PRN Reason: BOWEL MANAGEMENT Stop: 07/10/18 19:13 Levetiracetam (Keppra) 1,000 mg GT Q12HR [facility] Stop: 07/11/18 08:59 Last Admin: 05/20/18 12:37 Dose: 1,000 mg Levothyroxine Sodium (Synthroid) 0.1 mg GT QDAC [facility] Stop: 07/11/18 07:29 Last Admin: 05/20/18 06:45 Dose: 0.1 mg Lorazepam (Ativan) 1 mg IV Q4H PRN; Protocol PRN Reason: Seizure Stop: 07/10/18 19:22 Metoclopramide HCl (Reglan) 10 mg GT Q8HR [facility] Stop: 07/12/18 12:59 Last Admin: 05/20/18 12:37 Dose: 10 mg Miscellaneous (Amikacin Iv Per Pharmacy) 1 ea PRN PRN PRN Reason: PROTOCOL Stop: 07/12/18 15:36 Miscellaneous (Probiotic Screen) 1 ea PRN PRN PRN Reason: PROTOCOL Stop: 07/17/18 15:12 Ondansetron HCl (Zofran) 4 mg IV Q8H PRN PRN Reason: Nausea / Vomiting Stop: 07/10/18 19:23 Pantoprazole Sodium (Protonix) 40 mg IVP BID [facility] Stop: 07/11/18 08:59 Last Admin: 05/20/18 16:32 Dose: 40 mg Petrolatum (Vaseline Oint) 1 appl TP BID [facility] Stop: 07/16/18 16:59 Last Admin: 05/20/18 16:32 Dose: 1 appl Simvastatin (Zocor) 20 mg PO HS [facility]; Protocol Stop: 07/10/18 20:59 Last Admin: 05/19/18 20:36 Dose: 20 mg Sucralfate (Carafate) 1 gm GT QID [facility] Stop: 07/10/18 20:59 Last Admin: 05/20/18 16:33 Dose: 1 gm Theophylline (El-Dur) 100 mg GT BID [facility] Stop: 07/17/18 16:59 Last Admin: 05/20/18 16:32 Dose: 100 mg Zinc Sulfate (Zinc Sulfate) 220 mg GT DAILY [facility] Stop: 07/11/18 08:59 Last Admin: 05/20/18 09:14 Dose: 220 mg Subjective: cc pn uti hpi- cx noted i n icu on vent vs chest claer abd soft trach dx Vital Signs - 24 hr 05/13/18 05/13/18 05/13/18 18:00 18:53 19:00 Temp HR 79 74 69 RR 15 16 BP 138/58 143/53 O2 Sat % 100 100 100 05/13/18 05/13/18 05/13/18 20:00 20:29 21:00 Temp 98.1 F HR 83 83 74 RR 16 16 BP 151/75 140/67 O2 Sat % 100 100 100 05/13/18 05/13/18 05/13/18 22:00 22:57 23:00 Temp HR 71 73 71 RR 16 16 BP 135/67 135/67 O2 Sat % 100 100 100 05/14/18 05/14/18 05/14/18 00:00 00:57 01:00 Temp 98.6 F HR 73 78 74 RR 16 16 BP 139/71 149/73 O2 Sat % 100 100 100 05/14/18 05/14/18 05/14/18 02:00 02:48 03:00 Temp HR 73 74 70 RR 16 16 BP 148/68 133/58 O2 Sat % 100 100 100 05/14/18 05/14/18 05/14/18 03:32 04:00 04:33 Temp 98.3 F HR 66 77 RR 16 16 BP 136/56 O2 Sat % 100 100 05/14/18 05/14/18 05/14/18 05:00 06:00 07:00 Temp 99.0 F HR 79 76 79 RR 15 16 16 BP 133/60 130/63 143/67 O2 Sat % 100 100 100 05/14/18 05/14/18 05/14/18 07:46 08:00 08:40 Temp 98.7 F HR 77 69 70 RR 16 BP 124/60 O2 Sat % 100 100 100 05/14/18 05/14/18 05/14/18 09:00 09:31 10:00 Temp 98.6 F 99.1 F HR 70 71 78 RR 16 16 BP 122/54 122/54 135/67 O2 Sat % 100 100 05/14/18 05/14/18 05/14/18 11:00 11:07 12:00 Temp 98.7 F 98.6 F HR 71 76 69 RR 16 14 BP 120/55 117/52 O2 Sat % 100 100 100 05/14/18 05/14/18 05/14/18 12:59 13:00 14:00 Temp 98.5 F 98.6 F HR 66 65 81 RR 16 16 BP 131/64 131/64 O2 Sat % 100 100 100 05/14/18 05/14/18 05/14/18 15:14 16:00 17:32 Temp HR 79 92 RR BP O2 Sat % 100 100 100 Laboratory Results - last 24 hr 05/12/18 05/13/18 05/13/18 20:56 17:59 21:56 WBC RBC Hgb Hct MCV MCH MCHC Differential RDW Plt Count MPV Add Manual Diff Band Neutrophils % Neutrophils (Manual) Lymphocytes Monocytes Sodium Potassium Chloride Carbon Dioxide Anion Gap BUN Creatinine Est GFR ( Amer) Est GFR (Non-Af Amer) BUN/Creatinine Ratio Glucose POC Glucose 207 H 176 H 148 H Calcium B-Natriuretic Peptide 05/13/18 05/14/18 05/14/18 21:58 00:35 04:35 WBC 8.1 RBC 2.68 L Hgb 7.1 L* Hct 21.9 L MCV 81.9 MCH 26.4 L MCHC Differential 32.2 RDW 16.9 Plt Count 286 MPV 7.4 Add Manual Diff YES Band Neutrophils % 2 Neutrophils (Manual) 80 Lymphocytes 12 L Monocytes 6 Sodium Potassium Chloride Carbon Dioxide Anion Gap BUN Creatinine Est GFR ( Amer) Est GFR (Non-Af Amer) BUN/Creatinine Ratio Glucose POC Glucose 149 H 161 H Calcium B-Natriuretic Peptide 05/14/18 05/14/18 05/14/18 04:35 04:35 05:30 WBC RBC Hgb Hct MCV MCH MCHC Differential RDW Plt Count MPV Add Manual Diff Band Neutrophils % Neutrophils (Manual) Lymphocytes Monocytes Sodium 139 Potassium 4.2 Chloride 106 Carbon Dioxide 22.1 Anion Gap 15.1 BUN 50 H Creatinine 1.3 H Est GFR ( Amer) TNP Est GFR (Non-Af Amer) TNP BUN/Creatinine Ratio 38.5 Glucose 165 H POC Glucose 143 H Calcium 8.4 L B-Natriuretic Peptide 84.7 05/14/18 05/14/18 09:27 13:29 WBC RBC Hgb Hct MCV MCH MCHC Differential RDW Plt Count MPV Add Manual Diff Band Neutrophils % Neutrophils (Manual) Lymphocytes Monocytes Sodium Potassium Chloride Carbon Dioxide Anion Gap BUN Creatinine Est GFR ( Amer) Est GFR (Non-Af Amer) BUN/Creatinine Ratio Glucose POC Glucose 176 H 161 H Calcium B-Natriuretic Peptide Diagnoses SEPSIS, UNSPECIFIED ORGANISM (05/11/18) ANEMIA, UNSPECIFIED (05/11/18) PNEUMONIA, UNSPECIFIED ORGANISM (05/11/18) CHRONIC RESPIRATORY FAILURE, UNSP W HYPOXIA OR HYPERCAPNIA (05/11/18) URINARY TRACT INFECTION, SITE NOT SPECIFIED (05/11/18) WEAKNESS (05/11/18) DEPENDENCE ON SUPPLEMENTAL OXYGEN (05/11/18) Current Medications Acetaminophen (Tylenol 650mg/20.3ml Suspension) 650 mg GT Q6HR PRN PRN Reason: Mild Pain or Fever >101 Stop: 07/10/18 19:13 Last Admin: 05/11/18 21:39 Dose: 650 mg Acetaminophen/Hydrocodone Bitart (Roy 5mg/325mg) 1 tab GT Q6H PRN PRN Reason: Severe Pain Stop: 07/10/18 19:13 Acetylcysteine (Mucomyst 20%) 2 ml HHN Q6HRT [facility] Stop: 07/11/18 00:59 Last Admin: 05/14/18 12:59 Dose: 2 ml Albuterol Sulfate (Albuterol 2.5mg/3ml Neb Ud) 2.5 mg HHN Q2HRT PRN PRN Reason: Shortness of Breath or Wheeze Stop: 07/10/18 19:22 Albuterol/Ipratropium (Duoneb Neb) 3 ml HHN Q6HRT [facility] Stop: 07/11/18 00:59 Last Admin: 05/14/18 12:59 Dose: 3 ml Albuterol/Ipratropium (Duoneb Neb) 3 ml HHN Q2HRT PRN PRN Reason: Wheezing Stop: 07/10/18 19:13 Amlodipine Besylate (Norvasc) 5 mg GT DAILY [facility] Stop: 07/11/18 08:59 Last Admin: 05/14/18 09:31 Dose: 5 mg Benztropine Mesylate (Cogentin) 1 mg GT BID [facility] Stop: 07/11/18 08:59 Last Admin: 05/14/18 16:38 Dose: 1 mg Carbidopa/Levodopa (Sinemet 25mg-100 Mg) 1 tab GT DAILY [facility] Stop: 07/11/18 08:59 Last Admin: 05/14/18 09:30 Dose: 1 tab Chlorhexidine Gluconate (Peridex) 15 ml MM 08,1999 [facility] Stop: 07/10/18 19:59 Last Admin: 05/14/18 09:32 Dose: 15 ml Clonazepam (Klonopin) 0.5 mg GT BID [facility]; Protocol Stop: 07/11/18 08:59 Last Admin: 05/14/18 16:38 Dose: 0.5 mg Docusate Sodium (Colace) 250 mg PO BID [facility] Stop: 07/11/18 08:59 Last Admin: 05/14/18 16:38 Dose: 250 mg Ferrous Sulfate (Iron) 330 mg GT DAILY [facility] Stop: 07/11/18 08:59 Last Admin: 05/14/18 09:30 Dose: 330 mg Gemfibrozil (Lopid) 600 mg GT BID [facility] Stop: 07/11/18 08:59 Last Admin: 05/14/18 16:38 Dose: 600 mg Sodium Chloride (Nacl 0.9%) 1,000 mls @ 80 mls/hr IV .[id number] [facility] Stop: 07/10/18 19:29 Last Admin: 05/14/18 16:48 Dose: 80 mls/hr Piperacillin Sod/Tazobactam (Sod 2.25 gm/ Sodium Chloride) 100 mls @ 100 mls/ hr IV Q8HR [facility] Stop: 07/10/18 20:59 Last Admin: 05/14/18 13:44 Dose: 100 mls/hr Amikacin Sulfate 500 mg/ (Dextrose) 102 mls @ 200 mls/hr IV Q24HR [facility] Stop: 07/13/18 14:59 Last Admin: 05/14/18 15:44 Dose: 200 mls/hr Insulin Aspart (Novolog) 0 units SUBQ Q6H [facility]; Protocol Stop: 07/11/18 00:00 Last Admin: 05/14/18 13:44 Dose: 2 units Insulin Human Isoph/Insulin Regular (Novolin 70/30) 22 units SUBQ HS [facility]; Protocol Stop: 07/10/18 20:59 Last Admin: 05/13/18 21:45 Dose: 22 units Insulin Human Isoph/Insulin Regular (Novolin 70/30) 45 units SUBQ DAILY [facility]; Protocol Stop: 07/11/18 08:59 Last Admin: 05/14/18 09:34 Dose: 45 units Ipratropium [place] (Atrovent Neb 0.5mg/2.5ml) 0.5 mg HHN Q2HRT PRN PRN Reason: Shortness of Breath or Wheeze Stop: 07/10/18 19:22 Lactobacillus Rhamnosus (Culturelle 15b) 1 each GT DAILY [facility] Stop: 07/11/18 08:59 Last Admin: 05/14/18 09:30 Dose: 1 each Lactulose (Cephulac) 20 gm GT PRN PRN PRN Reason: BOWEL MANAGEMENT Stop: 07/10/18 19:13 Levetiracetam (Keppra) 1,000 mg GT Q12HR [facility] Stop: 07/11/18 08:59 Last Admin: 05/14/18 09:31 Dose: 1,000 mg Levothyroxine Sodium (Synthroid) 0.1 mg GT QDAC [facility] Stop: 07/11/18 07:29 Last Admin: 05/14/18 09:30 Dose: 0.1 mg Lorazepam (Ativan) 1 mg IV Q4H PRN; Protocol PRN Reason: Seizure Stop: 07/10/18 19:22 Metoclopramide HCl (Reglan) 10 mg GT Q8HR [facility] Stop: 07/12/18 12:59 Last Admin: 05/14/18 13:44 Dose: 10 mg Miscellaneous (Calcium Alginate [Juan]) 1 each TP DAILY [facility] Stop: 07/11/18 08:59 Miscellaneous (Collagenase Clostridium Hist. [Santyl]) 1 appl TP DAILY [facility] Stop: 07/11/18 08:59 Miscellaneous (Petrolatum,White/Lanolin [Vitamin A And D Ointment]) 113 gm TP DAILY [facility] Stop: 07/11/18 08:59 Miscellaneous (Amikacin Iv Per Pharmacy) 1 ea MC PRN PRN PRN Reason: PROTOCOL Stop: 07/12/18 15:36 Ondansetron HCl (Zofran) 4 mg IV Q8H PRN PRN Reason: Nausea / Vomiting Stop: 07/10/18 19:23 Pantoprazole Sodium (Protonix) 40 mg IVP BID [facility] Stop: 07/11/18 08:59 Last Admin: 05/14/18 16:39 Dose: 40 mg Simvastatin (Zocor) 20 mg PO HS [facility]; Protocol Stop: 07/10/18 20:59 Last Admin: 05/13/18 21:10 Dose: 20 mg Sucralfate (Carafate) 1 gm GT QID [facility] Stop: 07/10/18 20:59 Last Admin: 05/14/18 16:38 Dose: 1 gm Zinc Sulfate (Zinc Sulfate) 220 mg GT DAILY [facility] Stop: 07/11/18 08:59 Last Admin: 05/14/18 09:31 Dose: 220 mg 05/14/18 16:21 Wound Care Notes by Eric Connors Wound Evaluation: Wound Consult ordered for low Germán score. Patient evaluated for a low Germán score of 12. Patient was asleep, non- responsive to voice, responsive to tactile stimuli, and received in a [facility] bed with an IsoFlex CRUZ mattress. Patient is unable to turn in bed independently. Skin is fair; Scar tissue present on Sacral-Coccygeal area. Recommend: Reposition patient [id number] only every two hours with pillow support. Elevate, off-load, and float bilateral heels with one pillow lengthwise under each extremity at all times. Offload pressure areas with pillows for pressure re-distribution. Perform skin care and monitor skin integrity q shift. Use moisture barrier cream on moisture susceptible areas qid and as needed for soiling. Initiate low air loss therapy. Will continue to follow as a Germán. Initialized on 05/14/18 16:21 - END OF NOTE Infectious Disease Objective - Results Result Diagrams: 05/20/18 04:00 05/20/18 04:00 Recent Labs: Laboratory Last Values WBC 13.4 Th/cmm (4.8-10.8) H D 05/20/18 04:00 RBC 3.07 Mil/cmm (3.80-5.20) L 05/20/18 04:00 Hgb 8.5 gm/dL (12-16) L 05/20/18 04:00 Hct 25.4 % (41.0-60) L 05/20/18 04:00 MCV 82.6 fl (81-100) 05/20/18 04:00 MCH 27.7 pg (27.0-31.0) 05/20/18 04:00 MCHC Differential 33.5 pg (28.0-36.0) 05/20/18 04:00 RDW 16.0 % (11.5-20.0) 05/20/18 04:00 Plt Count 336 Th/cmm (150-400) 05/20/18 04:00 MPV 7.7 fl 05/20/18 04:00 Add Manual Diff YES 05/15/18 04:20 Neutrophils % 82.1 % (40.0-80.0) H 05/20/18 04:00 Band Neutrophils % 0 % (0-10) 05/15/18 04:20 Lymphocytes % 9.8 % (20.0-50.0) L 05/20/18 04:00 Monocytes % 4.5 % (2.0-10.0) 05/20/18 04:00 Eosinophils % 3.0 % (0.0-5.0) 05/20/18 04:00 Basophils % 0.6 % (0.0-2.0) 05/20/18 04:00 Neutrophils (Manual) 80 % (40-80) 05/15/18 04:20 Lymphocytes 14 % (20-50) L 05/15/18 04:20 Monocytes 6 % (2-10) 05/15/18 04:20 Eosinophils 2 % (0-5) 05/12/18 07:10 Basophils 0 % (0-3) 05/12/18 07:10 PT 10.8 SECONDS (9.5-11.5) 05/17/18 04:35 INR 1.04 (0.5-1.4) 05/17/18 04:35 PTT (Actin FS) 26.2 SECONDS (26.0-38.0) 05/17/18 04:35 Sodium 138 mEq/L (136-145) 05/20/18 04:00 Potassium 4.1 mEq/L (3.5-5.1) 05/20/18 04:00 Chloride 110 mEq/L (98-107) H 05/20/18 04:00 Carbon Dioxide 20.0 mEq/L (21.0-31.0) L 05/20/18 04:00 Anion Gap 12.1 (7.0-16.0) 05/20/18 04:00 BUN 15 mg/dL (7-25) 05/20/18 04:00 Creatinine 0.8 mg/dL (0.6-1.2) 05/20/18 04:00 Est GFR ( Amer) TNP 05/20/18 04:00 Est GFR (Non-Af Amer) TNP 05/20/18 04:00 BUN/Creatinine Ratio 18.8 05/20/18 04:00 Glucose 155 mg/dL (70-105) H 05/20/18 04:00 POC Glucose 174 MG/DL (70 - 105) H 05/20/18 09:25 Whole Bld Lactic Acid 1.45 mmol/L (0.60-1.99) 05/11/18 15:45 Calcium 8.7 mg/dL (8.6-10.3) 05/20/18 04:00 Phosphorus 3.9 mg/dL (2.5-5.0) 05/11/18 15:45 Magnesium 2.2 mg/dL (1.9-2.7) 05/19/18 04:25 Iron 49 ug/dL (27-139) 05/12/18 07:10 TIBC 264 ug/dL (250-450) 05/12/18 07:10 Iron Saturation 19 % (15-55) 05/12/18 07:10 Unsaturated IBC 215 ug/dL (118-369) 05/12/18 07:10 Total Bilirubin 0.3 mg/dL (0.3-1.0) 05/11/18 15:45 AST 13 U/L (13-39) 05/11/18 15:45 ALT 10 U/L (7-52) 05/11/18 15:45 Alkaline Phosphatase 81 U/L (34-104) 05/11/18 15:45 Ammonia 59 umol/L (16-53) H 05/13/18 04:10 B-Natriuretic Peptide 119.0 pg/mL (5.0-100.0) H 05/19/18 04:25 Total Protein 8.3 gm/dL (6.0-8.3) 05/11/18 15:45 Albumin 3.6 gm/dL (3.7-5.3) L 05/11/18 15:45 Globulin 4.7 gm/dL 05/11/18 15:45 Albumin/Globulin Ratio 0.8 (1.0-1.8) L 05/11/18 15:45 Vitamin B12 1516 pg/mL (232-1245) H 05/12/18 07:10 Folic Acid >20.0 ng/mL (>3.0) 05/12/18 07:10 TSH 1.25 uIU/ml (0.34-5.60) 05/11/18 15:45 Urine Source CATH 05/11/18 16:50 Urine Color BROWN 05/11/18 16:50 Urine Clarity CLOUDY (CLEAR) H 05/11/18 16:50 Urine pH 7.0 (4.6 - 8.0) 05/11/18 16:50 Ur Specific [place] 1.010 (1.005-1.030) 05/11/18 16:50 Urine Protein 100 mg/dL (NEGATIVE) H 05/11/18 16:50 Urine Glucose (UA) NEGATIVE mg/dL (NEGATIVE) 05/11/18 16:50 Urine Ketones NEGATIVE mg/dL (NEGATIVE) 05/11/18 16:50 Urine Blood LARGE (NEGATIVE) H 05/11/18 16:50 Urine Nitrate NEGATIVE (NEGATIVE) 05/11/18 16:50 Urine Bilirubin SMALL (NEGATIVE) H 05/11/18 16:50 Urine Urobilinogen 0.2 E.U./dL (0.2 - 1.0) 05/11/18 16:50 Ur Leukocyte Esterase LARGE (NEGATIVE) H 05/11/18 16:50 Urine RBC 25-50 /hpf (0-5) H 05/11/18 16:50 Urine WBC 50-100 /hpf (0-5) H 05/11/18 16:50 Ur Epithelial Cells MODERATE /lpf (FEW) 05/11/18 16:50 Urine Bacteria 4+ /hpf (NONE SEEN) H 05/11/18 16:50 Amikacin Peak 27.9 ug/mL (20.0-30.0) 05/15/18 16:40 Amikacin Trough 6.4 ug/mL (1.0-8.0) 05/15/18 13:50 Urine Opiates Screen POSITIVE (NEGATIVE) H 05/11/18 16:50 Urine Methadone Screen NEGATIVE (NEGATIVE) 05/11/18 16:50 Ur Barbiturates Screen NEGATIVE (NEGATIVE) 05/11/18 16:50 Ur Tricyclics Screen NEGATIVE (NEGATIVE) 05/11/18 16:50 Levetiracetam 51.3 ug/mL (10.0-40.0) H 05/11/18 15:45 Ur Phencyclidine Scrn NEGATIVE (NEGATIVE) 05/11/18 16:50 Amphetamines Screen NEGATIVE (NEGATIVE) 05/11/18 16:50 U Methamphetamines Scrn NEGATIVE (NEGATIVE) 05/11/18 16:50 U Benzodiazepines Scrn NEGATIVE (NEGATIVE) 05/11/18 16:50 U Cocaine Metab Screen NEGATIVE (NEGATIVE) 05/11/18 16:50 U Cannabinoids Screen NEGATIVE (NEGATIVE) 05/11/18 16:50 Blood Type A POSITIVE 05/16/18 09:30 Rho(D) Type Cancelled 05/11/18 16:48 Antibody Screen NEGATIVE 05/16/18 09:30 Crossmatch See Detail 05/16/18 09:30 BBK History Checked Cancelled 05/11/18 16:48 - Physical Exam Vitals and I&O: Vital Signs Temp 98.7 F 05/20/18 16:00 Pulse 85 05/20/18 17:10 Resp 16 05/20/18 16:00 BP 98/47 05/20/18 16:00 Pulse Ox 100 05/20/18 17:10 Intake & Output 05/19/18 05/20/18 05/20/18 18:59 06:59 18:59 Intake Total 2882 2117 40 Output Total 3175 1300 Balance -293 817 40 Weight (lbs) 75.75 kg 90.718 kg 87.362 kg Intake: Intake, IV Amount 102 1402 Amikacin 500 mg In 102 102 Dextrose 5% 100 ml @ 200 mls/hr IV Q24HR [facility] Rx#: [id number] Piperacillin Sodium/ 300 Tazobact 2.25 gm In Sodium Chloride 0.9% 100 ml @ 100 mls/hr IV Q8HR [facility] Rx#:[id number] Sodium Chloride 0.9% 1, 1000 000 ml @ 30 mls/hr IV . Q24H [facility] Rx#:[id number] Oral 500 0 40 Tube Feeding 1130 715 Other 1150 Output: Gastric Drainage 0 Urine 2325 1300 Other 850 Other: # Bowel Movements 1 2 Stool Characteristics Soft Soft Soft Brown Brown Weight Source Estimated Estimated Bedscale Active Medications: Current Medications Acetaminophen (Tylenol 650mg/20.3ml Suspension) 650 mg GT Q6HR PRN PRN Reason: Mild Pain or Fever >101 Stop: 07/10/18 19:13 Last Admin: 05/11/18 21:39 Dose: 650 mg Acetaminophen/Hydrocodone Bitart (Roy 5mg/325mg) 1 tab GT Q6H PRN PRN Reason: Severe Pain Stop: 07/10/18 19:13 Acetylcysteine (Mucomyst 20%) 2 ml HHN Q6HRT [facility] Stop: 07/11/18 00:59 Last Admin: 05/20/18 13:37 Dose: 2 ml Albuterol Sulfate (Albuterol 2.5mg/3ml Neb Ud) 2.5 mg HHN Q2HRT PRN PRN Reason: Shortness of Breath or Wheeze Stop: 07/10/18 19:22 Albuterol/Ipratropium (Duoneb Neb) 3 ml HHN Q6HRT [facility] Stop: 07/11/18 00:59 Last Admin: 05/20/18 13:37 Dose: 3 ml Albuterol/Ipratropium (Duoneb Neb) 3 ml HHN Q2HRT PRN PRN Reason: Wheezing Stop: 07/10/18 19:13 Amlodipine Besylate (Norvasc) 5 mg GT DAILY [facility] Stop: 07/11/18 08:59 Last Admin: 05/20/18 09:11 Dose: 5 mg Atropine Sulfate (Atropine) 1 mg IVP Q4H PRN PRN Reason: Cardiac Arrhythmia (HR < 35) Stop: 07/16/18 22:31 Benztropine Mesylate (Cogentin) 1 mg GT BID [facility] Stop: 07/11/18 08:59 Last Admin: 05/20/18 16:35 Dose: 1 mg Carbidopa/Levodopa (Sinemet 25mg-100 Mg) 1 tab GT DAILY [facility] Stop: 07/11/18 08:59 Last Admin: 05/20/18 09:13 Dose: 1 tab Chlorhexidine Gluconate (Peridex) 15 ml MM 0800,2000 [facility] Stop: 07/10/18 19:59 Last Admin: 05/20/18 09:10 Dose: 15 ml Docusate Sodium (Colace) 250 mg PO BID [facility] Stop: 07/11/18 08:59 Last Admin: 05/20/18 16:33 Dose: 250 mg Enalaprilat (Vasotec) 1.25 mg IVP Q6H PRN PRN Reason: SBP ABOVE 160 Stop: 07/16/18 22:31 Last Admin: 05/17/18 23:58 Dose: 1.25 mg Ferrous Sulfate (Iron) 330 mg GT DAILY [facility] Stop: 07/11/18 08:59 Last Admin: 05/20/18 09:11 Dose: 330 mg Gemfibrozil (Lopid) 600 mg GT BID [facility] Stop: 07/11/18 08:59 Last Admin: 05/20/18 16:33 Dose: 600 mg Piperacillin Sod/Tazobactam (Sod 2.25 gm/ Sodium Chloride) 100 mls @ 100 mls/ hr IV Q8HR [facility] Stop: 07/10/18 20:59 Last Admin: 05/20/18 12:36 Dose: 100 mls/hr Amikacin Sulfate 500 mg/ (Dextrose) 102 mls @ 200 mls/hr IV Q24HR [facility] Stop: 07/13/18 14:59 Last Admin: 05/20/18 16:35 Dose: 200 mls/hr Sodium Chloride (Nacl 0.9%) 1,000 mls @ 30 mls/hr IV .Q24H [facility] Stop: 07/18/18 13:29 Last Admin: 05/20/18 15:05 Dose: 30 mls/hr Insulin Aspart (Novolog) 0 units SUBQ Q6H [facility]; Protocol Stop: 07/11/18 00:00 Last Admin: 05/20/18 12:26 Dose: 2 units Insulin Human Isoph/Insulin Regular (Novolin 70/30) 22 units SUBQ HS [facility]; Protocol Stop: 07/10/18 20:59 Last Admin: 05/19/18 22:30 Dose: 22 units Insulin Human Isoph/Insulin Regular (Novolin 70/30) 15 units SUBQ DAILY [facility]; Protocol Stop: 07/19/18 08:59 Last Admin: 05/20/18 09:16 Dose: 15 units Ipratropium [place] (Atrovent Neb 0.5mg/2.5ml) 0.5 mg HHN Q2HRT PRN PRN Reason: Shortness of Breath or Wheeze Stop: 07/10/18 19:22 Lactobacillus Rhamnosus (Culturelle 15b) 1 each PO DAILY [facility] Stop: 07/17/18 15:59 Last Admin: 05/20/18 09:15 Dose: 1 each Lactulose (Cephulac) 20 gm GT PRN PRN PRN Reason: BOWEL MANAGEMENT Stop: 07/10/18 19:13 Levetiracetam (Keppra) 1,000 mg GT Q12HR [facility] Stop: 07/11/18 08:59 Last Admin: 05/20/18 12:37 Dose: 1,000 mg Levothyroxine Sodium (Synthroid) 0.1 mg GT QDAC [facility] Stop: 07/11/18 07:29 Last Admin: 05/20/18 06:45 Dose: 0.1 mg Lorazepam (Ativan) 1 mg IV Q4H PRN; Protocol PRN Reason: Seizure Stop: 07/10/18 19:22 Metoclopramide HCl (Reglan) 10 mg GT Q8HR [facility] Stop: 07/12/18 12:59 Last Admin: 05/20/18 12:37 Dose: 10 mg Miscellaneous (Amikacin Iv Per Pharmacy) 1 ea [facility] PRN PRN PRN Reason: PROTOCOL Stop: 07/12/18 15:36 Miscellaneous (Probiotic Screen) 1 ea MC PRN PRN PRN Reason: PROTOCOL Stop: 07/17/18 15:12 Ondansetron HCl (Zofran) 4 mg IV Q8H PRN PRN Reason: Nausea / Vomiting Stop: 07/10/18 19:23 Pantoprazole Sodium (Protonix) 40 mg IVP BID [facility] Stop: 07/11/18 08:59 Last Admin: 05/20/18 16:32 Dose: 40 mg Petrolatum (Vaseline Oint) 1 appl TP BID [facility] Stop: 07/16/18 16:59 Last Admin: 05/20/18 16:32 Dose: 1 appl Simvastatin (Zocor) 20 mg PO HS [facility]; Protocol Stop: 07/10/18 20:59 Last Admin: 05/19/18 20:36 Dose: 20 mg Sucralfate (Carafate) 1 gm GT QID [facility] Stop: 07/10/18 20:59 Last Admin: 05/20/18 16:33 Dose: 1 gm Theophylline (El-Dur) 100 mg GT BID [facility] Stop: 07/17/18 16:59 Last Admin: 05/20/18 16:32 Dose: 100 mg Zinc Sulfate (Zinc Sulfate) 220 mg GT DAILY [facility] Stop: 07/11/18 08:59 Last Admin: 05/20/18 09:14 Dose: 220 mg - Procedures Procedures: Procedures Procedure Code Date AIRWAYS SURGICAL PROCEDURE 97272 03/03/16 BLOOD TRANSFUSION SERVICE 88888 09/27/17 CHANGE FEEDING DEVICE IN UP INTEST TRACT, WILD LIFE MANAGER APPROACH [id number] 12/10/16 CHANGE GASTROSTOMY TUBE 53115 06/06/13 CONTINUOUS INVASIVE MECHANICAL VENTILATION <96 CONSEC HRS 96.71 02/02/13 CONTINUOUS INVASIVE MECHANICAL VENTILATION =/>96 CONSEC HRS 96.72 06/06/13 DESTRUCTION OF BLADDER, ENDO [id number] 05/11/18 [place] [address] 03/03/16 IMMUNIZATION ADMIN 36583 03/03/16 INFLUENZA VACCINATION 99.52 02/02/13 INSERT NON-TUNNEL CV CATH 74303 03/03/16 INSERTION OF INFUSION DEV INTO SUP VENA CAVA, PERC APPROACH [id number] 03/03/16 INSJ PICC 5 YR+ W/O IMAGING 15227 02/02/13 INTRODUCTION OF SERUM/TOX/VACCINE INTO MUSCLE, PERC APPROACH [id number] 03/03/16 OTHER GASTROSTOMY 43.19 06/03/10 REPLACE GASTROSTOMY TUBE 97.02 06/06/13 RESPIRATORY VENTILATION, GREATER THAN 96 CONSECUTIVE HOURS [id number] 05/11/18 TRANSFUSE NONAUT RED BLOOD CELLS IN PERIPH VEIN, PERC 01807E5 09/27/17 VACCINATION NEC 99.55 02/02/13 VENOUS CATHETERIZATION NEC 38.93 10/05/13 VENT MGMT INPAT INIT DAY 03/03/16 VENT MGMT INPAT SUBQ DAY 03/03/16 Nutritional Asmnt/Malnutr-PDOC - Dietary Evaluation Malnutrition Findings (Please click <Entered> for more info): Nutritional Asmnt/Malnutrition Start: 05/12/18 14: 39 Text: Status: Complete Freq: Protocol: Document 05/12/18 14:39 RHAQUE (Rec: 05/12/18 14:59 RHAQUE [email or web address]) Nutritional Asmnt/Malnutrition Patient General Information Nutritional Screening High Risk Consult Diagnosis UTI, GI bleed Pertinent Medical Hx/Surgical Hx Ventilator dependent Resp failure, Parkinson's, Seizure, Dementia, 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 Pt is trached to a ventilator. Current TF provides 1300ml/day volume, 1560 kcal/day, 78g Protein/ day. 1047 ml water total. Current Diet Order/ Nutrition Support Tube feeding Glucerna 1.2 65ml /hr x 20hrs Patient / S.O Not Indicated Pertinent Medications Docusate, Gemfibrozil, Insulin Aspart, Insulin Novolin, Lactulose, Synthroid, Metoclopramide, Ondansetron, Simvastatin Pertinent Labs (05/12) BUN 65, Na+ 135, Gluc 214, POC Gluc 241 Nutritional Hx/Data Height 1.63 m Height (Calculated Centimeters) 162.6 Current Weight (lbs) 78.018 kg Weight (Calculated Kilograms) 78.0 Weight (Calculated Grams) 31756.9 [place] Body Weight 120 % [place] Body Weight 135 Body Mass Index (BMI) 29.5 GI Symptoms Last BM No Noted B.M. Cultural/Ethnic/Jew Belief None indicated Skin Integrity/Comment: Germán Score 12. On Nursing flowsheet, pressure ulcer on coccyx noted. No wound care note. Unknown stage. Current %PO Negligible < 25% Estimated Nutritional Goals BEE in Kcals: Adj wt of IBW Calories/Kcals/Kg 25-30 Kcals Calculated 1292-6185 Protein: Adj wt of IBW Protein g/k.2-1.5 Protein Calculated 72-90 Fluid: ml 4261-5602 Nutritional Problem 1. Problem Problem Altered Nutritional related Lab values Etiology Uncontrolled hyperglycemia aeb Signs/Symptoms: (05/12) Gluc 214, POC Gluc 241 Malnutrition Alert Is there a minimum of two criteria No selected? Query Text:Check all the applicable criteria. A minimum of two criteria are recommended for diagnosis of either severe or non-severe malnutrition. Malnutrition Related to Morbid Obesity Malnutrition related to morbid obesity No Intervention/Recommendation Comments Continue Tube feeding as ordered. Pt already on DM tube feeding formula. MD to modify insulin regimen as needed for optimal glycemic control. Will modify nutrient needs based on wound care notes. Expected Outcomes/Goals Expected Outcomes/Goals 1. Labs WNL 2. Tube feeding continue to be tolerated 3. F/U in 2-3 days as HR (05/14 -)
[2018-05-21] MEDS: Albuterol/Ipratropium Neb 3 ML AERS HHN SCH ×4 (01:09→19:01)
[2018-05-21] MEDS: Piperacillin Sodium/Tazobact 2.25 GM in Sodium Chloride 0.9% 100 ML IV SCH (04:25)
[2018-05-21 04:47] LABS: HEMATOCRIT 25.8 % (41.0-60); HEMOGLOBIN 8.6 gm/dL (12-16); MEAN CELL VOLUME 82.8 fl (81-100); MEAN CORPUSCULAR HEMOGLOBIN 27.5 pg (27.0-31.0); MEAN CORPUSCULAR HGB CONC 33.3 pg (28.0-36.0); MEAN PLATELET VOLUME 7.5 fl; PLATELET COUNT 311 Th/cmm (150-400); RED BLOOD COUNT 3.11 Mil/cmm (3.80-5.20); RED CELL DISTRIBUTION WIDTH 15.9 % (11.5-20.0)
[2018-05-21 05:30] LABS: ANION GAP 13.4 (7.0-16.0); BUN - UREA NITROGEN 14 mg/dL (7-25); CALCIUM SERUM 9.1 mg/dL (8.6-10.3); CARBON DIOXIDE 21.9 mEq/L (21.0-31.0); CHLORIDE 108 mEq/L (98-107); CREATININE - SERUM 0.8 mg/dL (0.6-1.2); GLUCOSE 176 mg/dL (70-105); POTASSIUM SERUM 4.3 mEq/L (3.5-5.1); SODIUM SERUM 139 mEq/L (136-145)
[2018-05-21] MEDS: INSULIN ASPART, RECOMBINANT 100 UNITS/ML SUBQ SCH ×4 (06:26→17:21)
[2018-05-21 07:19] LABS: BAND NEUTROPHILE 2 % (0-10); BASOPHIL 0 % (0-3); EOSINOPHIL 5 % (0-5); LYMPHOCYTE 4 % (20-50); MONOCYTE 3 % (2-10); NEUTROPHILS 86 % (40-80)
[2018-05-21 07:20] LABS: PLATELET ESTIMATE ADEQUATE (NORMAL)
[2018-05-21] MEDS: Levothyroxine 0.1 Mg Tab GT SCH (07:44)
[2018-05-21] MEDS: Chlorhexidine Gluconate 0.12% 15mL Mouthwash MM SCH ×2 (08:00→21:08)
[2018-05-21] MEDS: Multivitamin w/ Minerals Tab GT SCH (08:26)
[2018-05-21] MEDS: Benztropine 1 MG TAB GT SCH ×2 (08:26→16:54)
[2018-05-21] MEDS: Ferrous Sulfate 300 MG/5 ML UDC GT SCH (08:27)
[2018-05-21] MEDS: Lactobacillus Rhamnosus GG 15 Billion CFU CAP.SPRINK PO SCH (08:27)
--- NOTE | 2018-05-21 08:27 | Diagnostic Imaging Report ---
Portable chest x-ray HISTORY: Shortness of breath Compared with prior exam of May 19, 2018, the heart remains enlarged. Persistent density seen within the left lower hemithorax consistent with a pleural effusion. IMPRESSION: 1. Little change from May 19, 2018. Evidence of a left pleural effusion. Underlying pneumonia and/or atelectasis cannot be excluded. 2. Persistent cardiomegaly
[2018-05-21] MEDS: Levetiracetam 500 mg/5mL 5mL UDSyr *for ORAL USE ONLY GT SCH ×2 (08:28→21:09)
[2018-05-21] MEDS: Theophylline 80 mg/15 mL UDC GT SCH ×2 (08:28→16:54)
[2018-05-21] MEDS: INSULIN 70/30 100 UNITS/ML SUBQ SCH ×2 (09:08→21:08)
[2018-05-21] MEDS: Petrolatum (White) Oint 0.6 Oz Tube TP SCH ×2 (09:09→17:25)
[2018-05-21] MEDS ORDERED: Piperacillin/Tazobact 2.25 gm in 0.9% NS 50 ML IV SCH (13:00)
--- NOTE | 2018-05-21 13:45 | General Progress Note ---
Subjective - Review of Systems Service Date: 05/21/18 Subjective: Patient still on ventilator with tracheostomy is congested lethargic Objective - Results Result Diagrams: 05/21/18 04:15 05/21/18 04:15 Recent Labs: Laboratory Last Values WBC 14.0 Th/cmm (4.8-10.8) H 05/21/18 04:15 RBC 3.11 Mil/cmm (3.80-5.20) L 05/21/18 04:15 Hgb 8.6 gm/dL (12-16) L 05/21/18 04:15 Hct 25.8 % (41.0-60) L 05/21/18 04:15 MCV 82.8 fl (81-100) 05/21/18 04:15 MCH 27.5 pg (27.0-31.0) 05/21/18 04:15 MCHC Differential 33.3 pg (28.0-36.0) 05/21/18 04:15 RDW 15.9 % (11.5-20.0) 05/21/18 04:15 Plt Count 311 Th/cmm (150-400) 05/21/18 04:15 MPV 7.5 fl 05/21/18 04:15 Add Manual Diff YES 05/21/18 04:15 Neutrophils % 82.1 % (40.0-80.0) H 05/20/18 04:00 Band Neutrophils % 2 % (0-10) 05/21/18 04:15 Lymphocytes % 9.8 % (20.0-50.0) L 05/20/18 04:00 Monocytes % 4.5 % (2.0-10.0) 05/20/18 04:00 Eosinophils % 3.0 % (0.0-5.0) 05/20/18 04:00 Basophils % 0.6 % (0.0-2.0) 05/20/18 04:00 Neutrophils (Manual) 86 % (40-80) H 05/21/18 04:15 Lymphocytes 4 % (20-50) L 05/21/18 04:15 Monocytes 3 % (2-10) 05/21/18 04:15 Eosinophils 5 % (0-5) 05/21/18 04:15 Basophils 0 % (0-3) 05/21/18 04:15 Platelet Estimate ADEQUATE (NORMAL) 05/21/18 04:15 PT 10.8 SECONDS (9.5-11.5) 05/17/18 04:35 INR 1.04 (0.5-1.4) 05/17/18 04:35 PTT (Actin FS) 26.2 SECONDS (26.0-38.0) 05/17/18 04:35 Sodium 139 mEq/L (136-145) 05/21/18 04:15 Potassium 4.3 mEq/L (3.5-5.1) 05/21/18 04:15 Chloride 108 mEq/L (98-107) H 05/21/18 04:15 Carbon Dioxide 21.9 mEq/L (21.0-31.0) 05/21/18 04:15 Anion Gap 13.4 (7.0-16.0) 05/21/18 04:15 BUN 14 mg/dL (7-25) 05/21/18 04:15 Creatinine 0.8 mg/dL (0.6-1.2) 05/21/18 04:15 Est GFR ( Amer) TNP 05/21/18 04:15 Est GFR (Non-Af Amer) TNP 05/21/18 04:15 BUN/Creatinine Ratio 17.5 05/21/18 04:15 Glucose 176 mg/dL (70-105) H 05/21/18 04:15 POC Glucose 157 MG/DL (70 - 105) H 05/21/18 11:59 Whole Bld Lactic Acid 1.45 mmol/L (0.60-1.99) 05/11/18 15:45 Calcium 9.1 mg/dL (8.6-10.3) 05/21/18 04:15 Phosphorus 3.9 mg/dL (2.5-5.0) 05/11/18 15:45 Magnesium 2.2 mg/dL (1.9-2.7) 05/19/18 04:25 Iron 49 ug/dL (27-139) 05/12/18 07:10 TIBC 264 ug/dL (250-450) 05/12/18 07:10 Iron Saturation 19 % (15-55) 05/12/18 07:10 Unsaturated IBC 215 ug/dL (118-369) 05/12/18 07:10 Total Bilirubin 0.3 mg/dL (0.3-1.0) 05/11/18 15:45 AST 13 U/L (13-39) 05/11/18 15:45 ALT 10 U/L (7-52) 05/11/18 15:45 Alkaline Phosphatase 81 U/L (34-104) 05/11/18 15:45 Ammonia 59 umol/L (16-53) H 05/13/18 04:10 B-Natriuretic Peptide 119.0 pg/mL (5.0-100.0) H 05/19/18 04:25 Total Protein 8.3 gm/dL (6.0-8.3) 05/11/18 15:45 Albumin 3.6 gm/dL (3.7-5.3) L 05/11/18 15:45 Globulin 4.7 gm/dL 05/11/18 15:45 Albumin/Globulin Ratio 0.8 (1.0-1.8) L 05/11/18 15:45 Vitamin B12 1516 pg/mL (232-1245) H 05/12/18 07:10 Folic Acid >20.0 ng/mL (>3.0) 05/12/18 07:10 TSH 1.25 uIU/ml (0.34-5.60) 05/11/18 15:45 Urine Source CATH 05/11/18 16:50 Urine Color BROWN 05/11/18 16:50 Urine Clarity CLOUDY (CLEAR) H 05/11/18 16:50 Urine pH 7.0 (4.6 - 8.0) 05/11/18 16:50 Ur Specific [place] 1.010 (1.005-1.030) 05/11/18 16:50 Urine Protein 100 mg/dL (NEGATIVE) H 05/11/18 16:50 Urine Glucose (UA) NEGATIVE mg/dL (NEGATIVE) 05/11/18 16:50 Urine Ketones NEGATIVE mg/dL (NEGATIVE) 05/11/18 16:50 Urine Blood LARGE (NEGATIVE) H 05/11/18 16:50 Urine Nitrate NEGATIVE (NEGATIVE) 05/11/18 16:50 Urine Bilirubin SMALL (NEGATIVE) H 05/11/18 16:50 Urine Urobilinogen 0.2 E.U./dL (0.2 - 1.0) 05/11/18 16:50 Ur Leukocyte Esterase LARGE (NEGATIVE) H 05/11/18 16:50 Urine RBC 25-50 /hpf (0-5) H 05/11/18 16:50 Urine WBC 50-100 /hpf (0-5) H 05/11/18 16:50 Ur Epithelial Cells MODERATE /lpf (FEW) 05/11/18 16:50 Urine Bacteria 4+ /hpf (NONE SEEN) H 05/11/18 16:50 Amikacin Peak 27.9 ug/mL (20.0-30.0) 05/15/18 16:40 Amikacin Trough 6.4 ug/mL (1.0-8.0) 05/15/18 13:50 Urine Opiates Screen POSITIVE (NEGATIVE) H 05/11/18 16:50 Urine Methadone Screen NEGATIVE (NEGATIVE) 05/11/18 16:50 Ur Barbiturates Screen NEGATIVE (NEGATIVE) 05/11/18 16:50 Ur Tricyclics Screen NEGATIVE (NEGATIVE) 05/11/18 16:50 Levetiracetam 51.3 ug/mL (10.0-40.0) H 05/11/18 15:45 Ur Phencyclidine Scrn NEGATIVE (NEGATIVE) 05/11/18 16:50 Amphetamines Screen NEGATIVE (NEGATIVE) 05/11/18 16:50 U Methamphetamines Scrn NEGATIVE (NEGATIVE) 05/11/18 16:50 U Benzodiazepines Scrn NEGATIVE (NEGATIVE) 05/11/18 16:50 U Cocaine Metab Screen NEGATIVE (NEGATIVE) 05/11/18 16:50 U Cannabinoids Screen NEGATIVE (NEGATIVE) 05/11/18 16:50 Blood Type A POSITIVE 05/16/18 09:30 Rho(D) Type Cancelled 05/11/18 16:48 Antibody Screen NEGATIVE 05/16/18 09:30 Crossmatch See Detail 05/16/18 09:30 BBK History Checked Cancelled 05/11/18 16:48 - Physical Exam Vitals and I&O: Vital Signs Temp 97.8 F 05/21/18 08:00 Pulse 67 05/21/18 13:15 Resp 15 05/21/18 11:00 BP 123/67 05/21/18 11:00 Pulse Ox 100 05/21/18 13:15 Intake & Output 05/20/18 05/21/18 05/21/18 18:59 06:59 18:59 Intake Total 906.5 1310 Output Total 2550 2200 Balance -1643.5 -890 Weight (lbs) 86.908 kg 86.891 kg Intake: Intake, IV Amount 391.5 560 Amikacin 500 mg In 102 Dextrose 5% 100 ml @ 200 mls/hr IV Q24HR [facility] Rx#: [id number] Piperacillin Sodium/ 100 200 Tazobact 2.25 gm In Sodium Chloride 0.9% 100 ml @ 100 mls/hr IV Q8HR [facility] Rx#:[id number] Sodium Chloride 0.9% 1, 87.5 360 000 ml @ 30 mls/hr IV . Q24H [facility] Rx#:[id number] Oral 190 Tube Feeding 325 650 Other 100 Output: Urine 2450 2200 Stool 100 Other: # Bowel Movements 1 1 Stool Characteristics Soft Soft Brown Brown Weight Source Bedscale Bedscale Active Medications: Current Medications Acetaminophen (Tylenol 650mg/20.3ml Suspension) 650 mg GT Q6HR PRN PRN Reason: Mild Pain or Fever >101 Stop: 07/10/18 19:13 Last Admin: 05/11/18 21:39 Dose: 650 mg Acetaminophen/Hydrocodone Bitart ([place] 5mg/325mg) 1 tab GT Q6H PRN PRN Reason: Severe Pain Stop: 07/10/18 19:13 Acetylcysteine (Mucomyst 20%) 2 ml HHN Q6HRT [facility] Stop: 07/11/18 00:59 Last Admin: 05/21/18 13:15 Dose: 2 ml Albuterol Sulfate (Albuterol 2.5mg/3ml Neb Ud) 2.5 mg HHN Q2HRT PRN PRN Reason: Shortness of Breath or Wheeze Stop: 07/10/18 19:22 Albuterol/Ipratropium (Duoneb Neb) 3 ml HHN Q6HRT [facility] Stop: 07/11/18 00:59 Last Admin: 05/21/18 13:15 Dose: 3 ml Albuterol/Ipratropium (Duoneb Neb) 3 ml HHN Q2HRT PRN PRN Reason: Wheezing Stop: 07/10/18 19:13 Amlodipine Besylate (Norvasc) 5 mg GT DAILY [facility] Stop: 07/11/18 08:59 Last Admin: 05/21/18 08:25 Dose: Not Given Atropine Sulfate (Atropine) 1 mg IVP Q4H PRN PRN Reason: Cardiac Arrhythmia (HR < 35) Stop: 07/16/18 22:31 Benztropine Mesylate (Cogentin) 1 mg GT BID [facility] Stop: 07/11/18 08:59 Last Admin: 05/21/18 08:26 Dose: 1 mg Carbidopa/Levodopa (Sinemet 25mg-100 Mg) 1 tab GT DAILY [facility] Stop: 07/11/18 08:59 Last Admin: 05/21/18 08:27 Dose: 1 tab Chlorhexidine Gluconate (Peridex) 15 ml MM 0800,1999 [facility] Stop: 07/10/18 19:59 Last Admin: 05/21/18 08:00 Dose: 15 ml Docusate Sodium (Colace) 250 mg PO BID [facility] Stop: 07/11/18 08:59 Last Admin: 05/21/18 08:28 Dose: 250 mg Ferrous Sulfate (Iron) 330 mg GT DAILY [facility] Stop: 07/11/18 08:59 Last Admin: 05/21/18 08:27 Dose: 330 mg Gemfibrozil (Lopid) 600 mg GT BID [facility] Stop: 07/11/18 08:59 Last Admin: 05/21/18 08:28 Dose: 600 mg Amikacin Sulfate 500 mg/ (Dextrose) 102 mls @ 200 mls/hr IV Q24HR [facility] Stop: 07/13/18 14:59 Last Infusion: 05/20/18 17:10 Dose: Infused Insulin Aspart (Novolog) 0 units SUBQ Q6H [facility]; Protocol Stop: 07/11/18 00:00 Last Admin: 05/21/18 12:17 Dose: 2 units Insulin Human Isoph/Insulin Regular (Novolin 70/30) 22 units SUBQ HS [facility]; Protocol Stop: 07/10/18 20:59 Last Admin: 05/20/18 20:54 Dose: 22 units Insulin Human Isoph/Insulin Regular (Novolin 70/30) 15 units SUBQ DAILY [facility]; Protocol Stop: 07/19/18 08:59 Last Admin: 05/21/18 09:08 Dose: Not Given Ipratropium [place] (Atrovent Neb 0.5mg/2.5ml) 0.5 mg HHN Q2HRT PRN PRN Reason: Shortness of Breath or Wheeze Stop: 07/10/18 19:22 Lactobacillus Rhamnosus (Culturelle 15b) 1 each PO DAILY [facility] Stop: 07/17/18 15:59 Last Admin: 05/21/18 08:27 Dose: 1 each Lactulose (Cephulac) 20 gm GT PRN PRN PRN Reason: BOWEL MANAGEMENT Stop: 07/10/18 19:13 Levetiracetam (Keppra) 1,000 mg GT Q12HR [facility] Stop: 07/11/18 08:59 Last Admin: 05/21/18 08:28 Dose: 1,000 mg Levofloxacin (Levaquin) 500 mg PO DAILY [facility] Stop: 07/21/18 08:59 Levothyroxine Sodium (Synthroid) 0.1 mg GT QDAC [facility] Stop: 07/11/18 07:29 Last Admin: 05/21/18 07:44 Dose: 0.1 mg Metoclopramide HCl (Reglan) 10 mg GT Q8HR [facility] Stop: 07/12/18 12:59 Last Admin: 05/21/18 12:16 Dose: 10 mg Miscellaneous (Amikacin Iv Per Pharmacy) 1 ea PRN PRN PRN Reason: PROTOCOL Stop: 07/12/18 15:36 Miscellaneous (Probiotic Screen) 1 [facility] PRN PRN PRN Reason: PROTOCOL Stop: 07/17/18 15:12 Ondansetron HCl (Zofran) 4 mg IV Q8H PRN PRN Reason: Nausea / Vomiting Stop: 07/10/18 19:23 Pantoprazole Sodium (Protonix) 40 mg PO BID [facility] Stop: 07/20/18 16:59 Petrolatum (Vaseline Oint) 1 appl TP BID [facility] Stop: 07/16/18 16:59 Last Admin: 05/21/18 09:09 Dose: 1 appl Simvastatin (Zocor) 20 mg PO HS [facility]; Protocol Stop: 07/10/18 20:59 Last Admin: 05/20/18 20:59 Dose: 20 mg Sucralfate (Carafate) 1 gm GT QID [facility] Stop: 07/10/18 20:59 Last Admin: 05/21/18 12:16 Dose: 1 gm Theophylline (El-Dur) 100 mg GT BID [facility] Stop: 07/17/18 16:59 Last Admin: 05/21/18 08:28 Dose: 100 mg Zinc Sulfate (Zinc Sulfate) 220 mg GT DAILY [facility] Stop: 07/11/18 08:59 Last Admin: 05/21/18 08:27 Dose: 220 mg General: No acute distress Neck: Supple Cardiovascular: Regular rate Lungs: Normal air movement Abdomen: Bowel sounds, Soft, Other (INTACT GT), no Tender Extremities: Edema (mild) - Procedures Procedures: Procedures Procedure Code Date AIRWAYS SURGICAL PROCEDURE 78831 03/03/16 BLOOD TRANSFUSION SERVICE 91441 09/27/17 CHANGE FEEDING DEVICE IN UP INTEST TRACT, TEACHER LEARNING DISABLED APPROACH [id number] 12/10/16 CHANGE GASTROSTOMY TUBE 45345 06/06/13 CONTINUOUS INVASIVE MECHANICAL VENTILATION <96 CONSEC HRS 96.71 02/02/13 CONTINUOUS INVASIVE MECHANICAL VENTILATION =/>96 CONSEC HRS 96.72 06/06/13 DESTRUCTION OF BLADDER, ENDO [id number] 05/11/18 [place] [address] 03/03/16 IMMUNIZATION ADMIN 70527 03/03/16 INFLUENZA VACCINATION 99.52 02/02/13 INSERT NON-TUNNEL CV CATH 98458 03/03/16 INSERTION OF INFUSION DEV INTO SUP VENA CAVA, PERC APPROACH [id number] 03/03/16 INSJ PICC 5 YR+ W/O IMAGING 51980 02/02/13 INTRODUCTION OF SERUM/TOX/VACCINE INTO MUSCLE, PERC APPROACH [id number] 03/03/16 OTHER GASTROSTOMY 43.19 06/03/10 REPLACE GASTROSTOMY TUBE 97.02 06/06/13 RESPIRATORY VENTILATION, GREATER THAN 96 CONSECUTIVE HOURS [id number] 05/11/18 TRANSFUSE NONAUT RED BLOOD CELLS IN PERIPH VEIN, PERC 26330M1 09/27/17 VACCINATION NEC 99.55 02/02/13 VENOUS CATHETERIZATION NEC 38.93 02/02/13 VENT MGMT INPAT INIT DAY 32295 03/03/16 VENT MGMT INPAT SUBQ DAY 25301 03/03/16 Assessment/Plan - Assessment Assessment: Acute respiratory failure on ventilator with tracheostomy Asymptomatic bradycardia Hypothyroid Aspiration pneumonia Hyperlipidemia Urinary tract infection Hematuria Dementia Stage I sacral decubitus ulcer Parkinson's disease Osteoporosis G-tube Protein calorie malnutrition Hyperlipidemia - Plan Plan: Continue present management continue with management continue IV antibiotics Nutritional Asmnt/Malnutr-PDOC - Dietary Evaluation Malnutrition Findings (Please click <Entered> for more info): Nutritional Asmnt/Malnutrition Start: 05/12/18 14: 39 Text: Status: Complete Freq: Protocol: Document 05/12/18 14:39 ADOLHP (Rec: 05/12/18 14:59 ADOLPH [id number]) Nutritional Asmnt/Malnutrition Patient General Information Nutritional Screening High Risk Consult Diagnosis UTI, GI bleed Pertinent Medical Hx/Surgical Hx Ventilator dependent Resp failure, Parkinson's, Seizure, Dementia, 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 Pt is trached to a ventilator. Current TF provides 1300ml/day volume, 1560 kcal/day, 78g Protein/ day. 1047 ml water total. Current Diet Order/ Nutrition Support Tube feeding Glucerna 1.2 65ml /hr x 20hrs Patient / S.O Not Indicated Pertinent Medications Docusate, Gemfibrozil, Insulin Aspart, Insulin Novolin, Lactulose, Synthroid, Metoclopramide, Ondansetron, Simvastatin Pertinent Labs (05/12) BUN 65, Na+ 135, Gluc 214, POC Gluc 241 Nutritional Hx/Data Height 1.63 m Height (Calculated Centimeters) 162.6 Current Weight (lbs) 78.018 kg Weight (Calculated Kilograms) 78.0 Weight (Calculated Grams) 91629.9 [place] Body Weight 120 % [place] Body Weight 135 Body Mass Index (BMI) 29.5 GI Symptoms Last BM No Noted B.M. Cultural/Ethnic/Pentecostalism Belief None indicated Skin Integrity/Comment: Germán Score 12. On Nursing flowsheet, pressure ulcer on coccyx noted. No wound care note. Unknown stage. Current %PO Negligible < 25% Estimated Nutritional Goals BEE in Kcals: Adj wt of IBW Calories/Kcals/Kg 25-30 Kcals Calculated 1479-8929 Protein: Adj wt of IBW Protein g/k.2-1.5 Protein Calculated 72-90 Fluid: ml 5469-6845 Nutritional Problem 1. Problem Problem Altered Nutritional related Lab values Etiology Uncontrolled hyperglycemia aeb Signs/Symptoms: (05/12) Gluc 214, POC Gluc 241 Malnutrition Alert Is there a minimum of two criteria No selected? Query Text:Check all the applicable criteria. A minimum of two criteria are recommended for diagnosis of either severe or non-severe malnutrition. Malnutrition Related to Morbid Obesity Malnutrition related to morbid obesity No Intervention/Recommendation Comments Continue Tube feeding as ordered. Pt already on DM tube feeding formula. MD to modify insulin regimen as needed for optimal glycemic control. Will modify nutrient needs based on wound care notes. Expected Outcomes/Goals Expected Outcomes/Goals 1. Labs WNL 2. Tube feeding continue to be tolerated 3. F/U in 2-3 days as HR (05/14 -)
[2018-05-21] MEDS: Amikacin 500 mg in D5W 100mL (Q24HR) IV SCH (15:51)
[2018-05-21] MEDS ORDERED: Pantoprazole 40 mg EC Tab PO SCH (17:00)
--- NOTE | 2018-05-21 20:15 | Discharge Summary ---
DATE OF DISCHARGE: 05/21/2018 CHIEF COMPLAINT: Low hemoglobin and blood in the urine. FINAL DIAGNOSES: Hematuria, status post cystoscopy, anemia, status post blood transfusion, sepsis, urinary tract infection, pneumonia, ventilator-dependent respiratory failure, chronic hydrocephalus, dementia, decubitus ulcer, diabetes, obesity, Parkinson, leukocytosis, renal insufficiency, electrolyte abnormalities with functional quadriplegia and bedridden. HISTORY: This is an 82-year-old female with multiple medical problems including ventilator-dependent respiratory failure, Parkinson's, seizure, dementia, bedbound, chronic hydrocephalus with MACHINE FANCY STITCHER shunt, decubitus ulcer, admitted from nursing facility secondary to blood in the urine. The patient is not noted to have gross hematuria. The patient admitted for further management in the ICU. PHYSICAL EXAMINATION: VITAL SIGNS: Blood pressure 133/78, respirations 16, pulse 67, temperature 98.2. GENERAL: Elderly female, appears stated age, chronically ill. NECK: Positive trach. LUNGS: Decreased breath sounds, few rhonchi. HEART: Regular rate and rhythm. Systolic ejection murmur. ABDOMEN: Soft, globular. EXTREMITIES: Positive excoriation. NEUROLOGIC: Limited. HOSPITAL COURSE: The patient was admitted to ICU, continued on vent support. The patient was placed on IV antibiotic and vancomycin and Zosyn, later on amikacin was added. The patient was referred to Dr. Tha Frank for Infectious Disease, Dr. Natarajan for Neurology. The patient underwent cystoscopy and even a 3-way [place] for irrigation. Dr. Jan Frank for Cardiology, Dr. Henriquez for Pulmonary, Dr. Hatch for Anesthesia. The patient remained stable and cleared for discharge. CONDITION ON DISCHARGE: Fair. PROGNOSIS: Overall, prognosis is poor. DISCHARGE INSTRUCTIONS: The patient to continue with current regimen. We will be following patient in the subacute unit. JOB# [id number]
--- NOTE | 2018-05-22 02:11 | Infectious Disease Prog Note ---
Infectious Disease Subjective - Review of Systems Service Date: 05/21/18 Events since last encounter: schedule for discahrge to [facility] Subjective: cc pn uti hpi- cx noted i n icu on vent vs chest claer abd soft trach dx Vital Signs - 24 hr 05/13/18 05/13/18 05/13/18 18:00 18:53 19:00 Temp HR 79 74 69 RR 15 16 BP 138/58 143/53 O2 Sat % 100 100 100 05/13/18 05/13/18 05/13/18 20:00 20:29 21:00 Temp 98.1 F HR 83 83 74 RR 16 16 BP 151/75 140/67 O2 Sat % 100 100 100 05/13/18 05/13/18 05/13/18 22:00 22:57 23:00 Temp HR 71 73 71 RR 16 16 BP 135/67 135/67 O2 Sat % 100 100 100 05/14/18 05/14/18 05/14/18 00:00 00:57 01:00 Temp 98.6 F HR 73 78 74 RR 16 16 BP 139/71 149/73 O2 Sat % 100 100 100 05/14/18 05/14/18 05/14/18 02:00 02:48 03:00 Temp HR 73 74 70 RR 16 16 BP 148/68 133/58 O2 Sat % 100 100 100 05/14/18 05/14/18 05/14/18 03:32 04:00 04:33 Temp 98.3 F HR 66 77 RR 16 16 BP 136/56 O2 Sat % 100 100 05/14/18 05/14/18 05/14/18 05:00 06:00 07:00 Temp 99.0 F HR 79 76 79 RR 15 16 16 BP 133/60 130/63 143/67 O2 Sat % 100 100 100 05/14/18 05/14/18 05/14/18 07:46 08:00 08:40 Temp 98.7 F HR 77 69 70 RR 16 BP 124/60 O2 Sat % 100 100 100 05/14/18 05/14/18 05/14/18 09:00 09:31 10:00 Temp 98.6 F 99.1 F HR 70 71 78 RR 16 16 BP 122/54 122/54 135/67 O2 Sat % 100 100 01/05/14/18 05/14/18 11:00 11:07 12:00 Temp 98.7 F 98.6 F HR 71 76 69 RR 16 14 BP 120/55 117/52 O2 Sat % 100 100 100 05/14/18 05/14/18 05/14/18 12:59 13:00 14:00 Temp 98.5 F 98.6 F HR 66 65 81 RR 16 16 BP 131/64 131/64 O2 Sat % 100 100 100 05/14/18 05/14/18 05/14/18 15:14 16:00 17:32 Temp HR 79 92 RR BP O2 Sat % 100 100 100 Laboratory Results - last 24 hr 05/12/18 05/13/18 05/13/18 20:56 17:59 21:56 WBC RBC Hgb Hct MCV MCH MCHC Differential RDW Plt Count MPV Add Manual Diff Band Neutrophils % Neutrophils (Manual) Lymphocytes Monocytes Sodium Potassium Chloride Carbon Dioxide Anion Gap BUN Creatinine Est GFR ( Amer) Est GFR (Non-Af Amer) BUN/Creatinine Ratio Glucose POC Glucose 207 H 176 H 148 H Calcium B-Natriuretic Peptide 05/13/18 05/14/18 05/14/18 21:58 00:35 04:35 WBC 8.1 RBC 2.68 L Hgb 7.1 L* Hct 21.9 L MCV 81.9 MCH 26.4 L MCHC Differential 32.2 RDW 16.9 Plt Count 286 MPV 7.4 Add Manual Diff YES Band Neutrophils % 2 Neutrophils (Manual) 80 Lymphocytes 12 L Monocytes 6 Sodium Potassium Chloride Carbon Dioxide Anion Gap BUN Creatinine Est GFR ( Amer) Est GFR (Non-Af Amer) BUN/Creatinine Ratio Glucose POC Glucose 149 H 161 H Calcium B-Natriuretic Peptide 05/14/18 05/14/18 05/14/18 04:35 04:35 05:30 WBC RBC Hgb Hct MCV MCH MCHC Differential RDW Plt Count MPV Add Manual Diff Band Neutrophils % Neutrophils (Manual) Lymphocytes Monocytes Sodium 139 Potassium 4.2 Chloride 106 Carbon Dioxide 22.1 Anion Gap 15.1 BUN 50 H Creatinine 1.3 H Est GFR ( Amer) TNP Est GFR (Non-Af Amer) TNP BUN/Creatinine Ratio 38.5 Glucose 165 H POC Glucose 143 H Calcium 8.4 L B-Natriuretic Peptide 84.7 05/14/18 05/14/18 09:27 13:29 WBC RBC Hgb Hct MCV MCH MCHC Differential RDW Plt Count MPV Add Manual Diff Band Neutrophils % Neutrophils (Manual) Lymphocytes Monocytes Sodium Potassium Chloride Carbon Dioxide Anion Gap BUN Creatinine Est GFR ( Amer) Est GFR (Non-Af Amer) BUN/Creatinine Ratio Glucose POC Glucose 176 H 161 H Calcium B-Natriuretic Peptide Diagnoses SEPSIS, UNSPECIFIED ORGANISM (05/11/18) ANEMIA, UNSPECIFIED (05/11/18) PNEUMONIA, UNSPECIFIED ORGANISM (05/11/18) CHRONIC RESPIRATORY FAILURE, UNSP W HYPOXIA OR HYPERCAPNIA (05/11/18) URINARY TRACT INFECTION, SITE NOT SPECIFIED (05/11/18) WEAKNESS (05/11/18) DEPENDENCE ON SUPPLEMENTAL OXYGEN (05/11/18) Current Medications Acetaminophen (Tylenol 650mg/20.3ml Suspension) 650 mg GT Q6HR PRN PRN Reason: Mild Pain or Fever >101 Stop: 07/10/18 19:13 Last Admin: 05/11/18 21:39 Dose: 650 mg Acetaminophen/Hydrocodone Bitart ([place] 5mg/325mg) 1 tab GT Q6H PRN PRN Reason: Severe Pain Stop: 07/10/18 19:13 Acetylcysteine (Mucomyst 20%) 2 ml HHN Q6HRT [facility] Stop: 07/11/18 00:59 Last Admin: 05/14/18 12:59 Dose: 2 ml Albuterol Sulfate (Albuterol 2.5mg/3ml Neb Ud) 2.5 mg HHN Q2HRT PRN PRN Reason: Shortness of Breath or Wheeze Stop: 07/10/18 19:22 Albuterol/Ipratropium (Duoneb Neb) 3 ml HHN Q6HRT [facility] Stop: 07/11/18 00:59 Last Admin: 05/14/18 12:59 Dose: 3 ml Albuterol/Ipratropium (Duoneb Neb) 3 ml HHN Q2HRT PRN PRN Reason: Wheezing Stop: 07/10/18 19:13 Amlodipine Besylate (Norvasc) 5 mg GT DAILY [facility] Stop: 07/11/18 08:59 Last Admin: 05/14/18 09:31 Dose: 5 mg Benztropine Mesylate (Cogentin) 1 mg GT BID [facility] Stop: 07/11/18 08:59 Last Admin: 05/14/18 16:38 Dose: 1 mg Carbidopa/Levodopa (Sinemet 25mg-100 Mg) 1 tab GT DAILY [facility] Stop: 07/11/18 08:59 Last Admin: 05/14/18 09:30 Dose: 1 tab Chlorhexidine Gluconate (Peridex) 15 ml MM 0800,2000 [facility] Stop: 07/10/18 19:59 Last Admin: 05/14/18 09:32 Dose: 15 ml Clonazepam (Klonopin) 0.5 mg GT BID [facility]; Protocol Stop: 07/11/18 08:59 Last Admin: 05/14/18 16:38 Dose: 0.5 mg Docusate Sodium (Colace) 250 mg PO BID [facility] Stop: 07/11/18 08:59 Last Admin: 05/14/18 16:38 Dose: 250 mg Ferrous Sulfate (Iron) 330 mg GT DAILY [facility] Stop: 07/11/18 08:59 Last Admin: 05/14/18 09:30 Dose: 330 mg Gemfibrozil (Lopid) 600 mg GT BID [facility] Stop: 07/11/18 08:59 Last Admin: 05/14/18 16:38 Dose: 600 mg Sodium Chloride (Nacl 0.9%) 1,000 mls @ 80 mls/hr IV .[id number] [facility] Stop: 07/10/18 19:29 Last Admin: 05/14/18 16:48 Dose: 80 mls/hr Piperacillin Sod/Tazobactam (Sod 2.25 gm/ Sodium Chloride) 100 mls @ 100 mls/ hr IV Q8HR [facility] Stop: 07/10/18 20:59 Last Admin: 05/14/18 13:44 Dose: 100 mls/hr Amikacin Sulfate 500 mg/ (Dextrose) 102 mls @ 200 mls/hr IV Q24HR [facility] Stop: 07/13/18 14:59 Last Admin: 05/14/18 15:44 Dose: 200 mls/hr Insulin Aspart (Novolog) 0 units SUBQ Q6H [facility]; Protocol Stop: 07/11/18 00:00 Last Admin: 05/14/18 13:44 Dose: 2 units Insulin Human Isoph/Insulin Regular (Novolin 70/30) 22 units SUBQ HS [facility]; Protocol Stop: 07/10/18 20:59 Last Admin: 05/13/18 21:45 Dose: 22 units Insulin Human Isoph/Insulin Regular (Novolin 70/30) 45 units SUBQ DAILY [facility]; Protocol Stop: 07/11/18 08:59 Last Admin: 05/14/18 09:34 Dose: 45 units Ipratropium Manning (Atrovent Neb 0.5mg/2.5ml) 0.5 mg HHN Q2HRT PRN PRN Reason: Shortness of Breath or Wheeze Stop: 07/10/18 19:22 Lactobacillus Rhamnosus (Culturelle 15b) 1 each GT DAILY [facility] Stop: 07/11/18 08:59 Last Admin: 05/14/18 09:30 Dose: 1 each Lactulose (Cephulac) 20 gm GT PRN PRN PRN Reason: BOWEL MANAGEMENT Stop: 07/10/18 19:13 Levetiracetam (Keppra) 1,000 mg GT Q12HR [facility] Stop: 07/11/18 08:59 Last Admin: 05/14/18 09:31 Dose: 1,000 mg Levothyroxine Sodium (Synthroid) 0.1 mg GT QDAC [facility] Stop: 07/11/18 07:29 Last Admin: 05/14/18 09:30 Dose: 0.1 mg Lorazepam (Ativan) 1 mg IV Q4H PRN; Protocol PRN Reason: Seizure Stop: 07/10/18 19:22 Metoclopramide HCl (Reglan) 10 mg GT Q8HR [facility] Stop: 07/12/18 12:59 Last Admin: 05/14/18 13:44 Dose: 10 mg Miscellaneous (Calcium Alginate [Juan]) 1 each TP DAILY [facility] Stop: 07/11/18 08:59 Miscellaneous (Collagenase Clostridium Hist. [Santyl]) 1 appl TP DAILY [facility] Stop: 07/11/18 08:59 Miscellaneous (Petrolatum,White/Lanolin [Vitamin A And D Ointment]) 113 gm TP DAILY [facility] Stop: 07/11/18 08:59 Miscellaneous (Amikacin Iv Per Pharmacy) 1 ea PRN PRN PRN Reason: PROTOCOL Stop: 07/12/18 15:36 Ondansetron HCl (Zofran) 4 mg IV Q8H PRN PRN Reason: Nausea / Vomiting Stop: 07/10/18 19:23 Pantoprazole Sodium (Protonix) 40 mg IVP BID [facility] Stop: 07/11/18 08:59 Last Admin: 05/14/18 16:39 Dose: 40 mg Simvastatin (Zocor) 20 mg PO HS [facility]; Protocol Stop: 07/10/18 20:59 Last Admin: 05/13/18 21:10 Dose: 20 mg Sucralfate (Carafate) 1 gm GT QID [facility] Stop: 07/10/18 20:59 Last Admin: 05/14/18 16:38 Dose: 1 gm Zinc Sulfate (Zinc Sulfate) 220 mg GT DAILY [facility] Stop: 07/11/18 08:59 Last Admin: 05/14/18 09:31 Dose: 220 mg 05/14/18 16:21 Wound Care Notes by Eric Connors Wound Evaluation: Wound Consult ordered for low Germán score. Patient evaluated for a low Germán score of 12. Patient was asleep, non- responsive to voice, responsive to tactile stimuli, and [facility] IsoFlex CRUZ mattress. Patient is unable to turn in bed independently. Skin is fair; Scar tissue present on Sacral-Coccygeal area. Recommend: Reposition patient [id number] only every two hours with pillow support. Elevate, off-load, and float bilateral heels with one pillow lengthwise under each extremity at all times. Offload pressure areas with pillows for pressure re-distribution. Perform skin care and monitor skin integrity q shift. Use moisture barrier cream on moisture susceptible areas qid and as needed for soiling. Initiate low air loss therapy. Will continue to follow as a Germán. Initialized on 05/14/18 16:21 - END OF NOTE Infectious Disease Objective - Results Result Diagrams: 05/21/18 04:15 05/21/18 04:15 Recent Labs: Laboratory Last Values WBC 14.0 Th/cmm (4.8-10.8) H 05/21/18 04:15 RBC 3.11 Mil/cmm (3.80-5.20) L 05/21/18 04:15 Hgb 8.6 gm/dL (12-16) L 05/21/18 04:15 Hct 25.8 % (41.0-60) L 05/21/18 04:15 MCV 82.8 fl (81-100) 05/21/18 04:15 MCH 27.5 pg (27.0-31.0) 05/21/18 04:15 MCHC Differential 33.3 pg (28.0-36.0) 05/21/18 04:15 RDW 15.9 % (11.5-20.0) 05/21/18 04:15 Plt Count 311 Th/cmm (150-400) 05/21/18 04:15 MPV 7.5 fl 05/21/18 04:15 Add Manual Diff YES 05/21/18 04:15 Neutrophils % 82.1 % (40.0-80.0) H 05/20/18 04:00 Band Neutrophils % 2 % (0-10) 05/21/18 04:15 Lymphocytes % 9.8 % (20.0-50.0) L 05/20/18 04:00 Monocytes % 4.5 % (2.0-10.0) 05/20/18 04:00 Eosinophils % 3.0 % (0.0-5.0) 05/20/18 04:00 Basophils % 0.6 % (0.0-2.0) 05/20/18 04:00 Neutrophils (Manual) 86 % (40-80) H 05/21/18 04:15 Lymphocytes 4 % (20-50) L 05/21/18 04:15 Monocytes 3 % (2-10) 05/21/18 04:15 Eosinophils 5 % (0-5) 05/21/18 04:15 Basophils 0 % (0-3) 05/21/18 04:15 Platelet Estimate ADEQUATE (NORMAL) 05/21/18 04:15 PT 10.8 SECONDS (9.5-11.5) 05/17/18 04:35 INR 1.04 (0.5-1.4) 05/17/18 04:35 PTT (Actin FS) 26.2 SECONDS (26.0-38.0) 05/17/18 04:35 Sodium 139 mEq/L (136-145) 05/21/18 04:15 Potassium 4.3 mEq/L (3.5-5.1) 05/21/18 04:15 Chloride 108 mEq/L (98-107) H 05/21/18 04:15 Carbon Dioxide 21.9 mEq/L (21.0-31.0) 05/21/18 04:15 Anion Gap 13.4 (7.0-16.0) 05/21/18 04:15 BUN 14 mg/dL (7-25) 05/21/18 04:15 Creatinine 0.8 mg/dL (0.6-1.2) 05/21/18 04:15 Est GFR ( Amer) TNP 05/21/18 04:15 Est GFR (Non-Af Amer) TNP 05/21/18 04:15 BUN/Creatinine Ratio 17.5 05/21/18 04:15 Glucose 176 mg/dL (70-105) H 05/21/18 04:15 POC Glucose 135 MG/DL (70 - 105) H 05/21/18 21:07 Whole Bld Lactic Acid 1.45 mmol/L (0.60-1.99) 05/11/18 15:45 Calcium 9.1 mg/dL (8.6-10.3) 05/21/18 04:15 Phosphorus 3.9 mg/dL (2.5-5.0) 05/11/18 15:45 Magnesium 2.2 mg/dL (1.9-2.7) 05/19/18 04:25 Iron 49 ug/dL (27-139) 05/12/18 07:10 TIBC 264 ug/dL (250-450) 05/12/18 07:10 Iron Saturation 19 % (15-55) 05/12/18 07:10 Unsaturated IBC 215 ug/dL (118-369) 05/12/18 07:10 Total Bilirubin 0.3 mg/dL (0.3-1.0) 05/11/18 15:45 AST 13 U/L (13-39) 05/11/18 15:45 ALT 10 U/L (7-52) 05/11/18 15:45 Alkaline Phosphatase 81 U/L (34-104) 05/11/18 15:45 Ammonia 59 umol/L (16-53) H 05/13/18 04:10 B-Natriuretic Peptide 119.0 pg/mL (5.0-100.0) H 05/19/18 04:25 Total Protein 8.3 gm/dL (6.0-8.3) 05/11/18 15:45 Albumin 3.6 gm/dL (3.7-5.3) L 05/11/18 15:45 Globulin 4.7 gm/dL 05/11/18 15:45 Albumin/Globulin Ratio 0.8 (1.0-1.8) L 05/11/18 15:45 Vitamin B12 1516 pg/mL (232-1245) H 05/12/18 07:10 Folic Acid >20.0 ng/mL (>3.0) 05/12/18 07:10 TSH 1.25 uIU/ml (0.34-5.60) 05/11/18 15:45 Urine Source CATH 05/11/18 16:50 Urine Color BROWN 05/11/18 16:50 Urine Clarity CLOUDY (CLEAR) H 05/11/18 16:50 Urine pH 7.0 (4.6 - 8.0) 05/11/18 16:50 Ur Specific Alvin 1.010 (1.005-1.030) 05/11/18 16:50 Urine Protein 100 mg/dL (NEGATIVE) H 05/11/18 16:50 Urine Glucose (UA) NEGATIVE mg/dL (NEGATIVE) 05/11/18 16:50 Urine Ketones NEGATIVE mg/dL (NEGATIVE) 05/11/18 16:50 Urine Blood LARGE (NEGATIVE) H 05/11/18 16:50 Urine Nitrate NEGATIVE (NEGATIVE) 05/11/18 16:50 Urine Bilirubin SMALL (NEGATIVE) H 05/11/18 16:50 Urine Urobilinogen 0.2 E.U./dL (0.2 - 1.0) 05/11/18 16:50 Ur Leukocyte Esterase LARGE (NEGATIVE) H 05/11/18 16:50 Urine RBC 25-50 /hpf (0-5) H 05/11/18 16:50 Urine WBC 50-100 /hpf (0-5) H 05/11/18 16:50 Ur Epithelial Cells MODERATE /lpf (FEW) 05/11/18 16:50 Urine Bacteria 4+ /hpf (NONE SEEN) H 05/11/18 16:50 Amikacin Peak 27.9 ug/mL (20.0-30.0) 05/15/18 16:40 Amikacin Trough 6.4 ug/mL (1.0-8.0) 05/15/18 13:50 Urine Opiates Screen POSITIVE (NEGATIVE) H 05/11/18 16:50 Urine Methadone Screen NEGATIVE (NEGATIVE) 05/11/18 16:50 Ur Barbiturates Screen NEGATIVE (NEGATIVE) 05/11/18 16:50 Ur Tricyclics Screen NEGATIVE (NEGATIVE) 05/11/18 16:50 Levetiracetam 51.3 ug/mL (10.0-40.0) H 05/11/18 15:45 Ur Phencyclidine Scrn NEGATIVE (NEGATIVE) 05/11/18 16:50 Amphetamines Screen NEGATIVE (NEGATIVE) 05/11/18 16:50 U Methamphetamines Scrn NEGATIVE (NEGATIVE) 05/11/18 16:50 U Benzodiazepines Scrn NEGATIVE (NEGATIVE) 05/11/18 16:50 U Cocaine Metab Screen NEGATIVE (NEGATIVE) 05/11/18 16:50 U Cannabinoids Screen NEGATIVE (NEGATIVE) 05/11/18 16:50 Blood Type A POSITIVE 05/16/18 09:30 Rho(D) Type Cancelled 05/11/18 16:48 Antibody Screen NEGATIVE 05/16/18 09:30 Crossmatch See Detail 05/16/18 09:30 BBK History Checked Cancelled 05/11/18 16:48 - Physical Exam Vitals and I&O: Vital Signs Temp 98.2 F 05/21/18 21:00 Pulse 71 05/21/18 21:00 Resp 15 05/21/18 21:00 BP 152/68 05/21/18 21:00 Pulse Ox 99 05/21/18 21:00 Intake & Output 05/21/18 05/21/18 05/22/18 06:59 18:59 06:59 Intake Total 1310 980 Output Total 2200 2150 Balance -890 -1170 Weight (lbs) 86.891 kg 83.007 kg Intake: Intake, IV Amount 560 Piperacillin Sodium/ 200 Tazobact 2.25 gm In Sodium Chloride 0.9% 100 ml @ 100 mls/hr IV Q8HR [facility] Rx#:[id number] Sodium Chloride 0.9% 1, 360 000 ml @ 30 mls/hr IV . Q24H [facility] FRANCISCO Rx#:[id number] Tube Feeding 650 430 Other 100 550 Output: Urine 2200 2150 Other: # Bowel Movements 1 0 Stool Characteristics Soft Soft Soft Brown Brown Brown Green Green Weight Source Bedscale Bedscale - Procedures Procedures: Procedures Procedure Code Date AIRWAYS SURGICAL PROCEDURE 78744 03/03/16 BLOOD TRANSFUSION SERVICE 36586 09/27/17 CHANGE FEEDING DEVICE IN UP INTEST TRACT, LENS BLANK GAUGER APPROACH [id number] 12/10/16 CHANGE GASTROSTOMY TUBE 73468 06/06/13 CONTINUOUS INVASIVE MECHANICAL VENTILATION <96 CONSEC HRS 96.71 02/02/13 CONTINUOUS INVASIVE MECHANICAL VENTILATION =/>96 CONSEC HRS 96.72 06/06/13 DESTRUCTION OF BLADDER, ENDO [id number] 05/11/18 [place] [address] 03/03/16 IMMUNIZATION ADMIN 60612 03/03/16 INFLUENZA VACCINATION 99.52 02/02/13 INSERT NON-TUNNEL CV CATH 15101 03/03/16 INSERTION OF INFUSION DEV INTO SUP VENA CAVA, PERC APPROACH [id number] 03/03/16 INSJ PICC 5 YR+ W/O IMAGING 59845 02/02/13 INTRODUCTION OF SERUM/TOX/VACCINE INTO MUSCLE, PERC APPROACH [id number] 03/03/16 OTHER GASTROSTOMY 43.19 06/03/10 REPLACE GASTROSTOMY TUBE 97.02 06/06/13 RESPIRATORY VENTILATION, GREATER THAN 96 CONSECUTIVE HOURS [id number] 05/11/18 TRANSFUSE NONAUT RED BLOOD CELLS IN PERIPH VEIN, PERC 70610P1 09/27/17 VACCINATION NEC 99.55 02/02/13 VENOUS CATHETERIZATION NEC 38.93 02/02/13 VENT MGMT INPAT INIT DAY 27012 03/03/16 VENT MGMT INPAT SUBQ DAY 24398 03/03/16 Nutritional Asmnt/Malnutr-PDOC - Dietary Evaluation Malnutrition Findings (Please click <Entered> for more info): Nutritional Asmnt/Malnutrition Start: 05/12/18 14: 39 Text: Status: Complete Freq: Protocol: Document 05/12/18 14:39 RHAQUE (Rec: 05/12/18 14:59 RHAQUE [id number]) Nutritional Asmnt/Malnutrition Patient General Information Nutritional Screening High Risk Consult Diagnosis UTI, GI bleed Pertinent Medical Hx/Surgical Hx Ventilator dependent Resp failure, Parkinson's, Seizure, Dementia, Chronic Hydrocephalus w [employer] shunt, DM, Decubitus Ulcer, Subjective Information Consult received for Blood Glucose 233 with Hx of DM while on TF. Pt is trached to a ventilator. Current TF provides 1300ml/day volume, 1560 kcal/day, 78g Protein/ day. 1047 ml water total. Current Diet Order/ Nutrition Support Tube feeding Glucerna 1.2 65ml /hr x 20hrs Patient / S.O Not Indicated Pertinent Medications Docusate, Gemfibrozil, Insulin Aspart, Insulin Novolin, Lactulose, Synthroid, Metoclopramide, Ondansetron, Simvastatin Pertinent Labs (05/12) BUN 65, Na+ 135, Gluc 214, POC Gluc 241 Nutritional Hx/Data Height 1.63 m Height (Calculated Centimeters) 162.6 Current Weight (lbs) 78.018 kg Weight (Calculated Kilograms) 78.0 Weight (Calculated Grams) 29288.9 [place] Body Weight 120 % [place]elle Body Weight 135 Body Mass Index (BMI) 29.5 GI Symptoms Last BM No Noted B.M. Cultural/Ethnic/Bahai Belief None indicated Skin Integrity/Comment: Germán Score 12. On Nursing flowsheet, pressure ulcer on coccyx noted. No wound care note. Unknown stage. Current %PO Negligible < 25% Estimated Nutritional Goals BEE in Kcals: Adj wt of IBW Calories/Kcals/Kg 25-30 Kcals Calculated 3863-4011 Protein: Adj wt of IBW Protein g/k.2-1.5 Protein Calculated 72-90 Fluid: ml 4868-2580 Nutritional Problem 1. Problem Problem Altered Nutritional related Lab values Etiology Uncontrolled hyperglycemia aeb Signs/Symptoms: (05/12) Gluc 214, POC Gluc 241 Malnutrition Alert Is there a minimum of two criteria No selected? Query Text:Check all the applicable criteria. A minimum of two criteria are recommended for diagnosis of either severe or non-severe malnutrition. Malnutrition Related to Morbid Obesity Malnutrition related to morbid obesity No Intervention/Recommendation Comments Continue Tube feeding as ordered. Pt already on DM tube feeding formula. MD to modify insulin regimen as needed for optimal glycemic control. Will modify nutrient needs based on wound care notes. Expected Outcomes/Goals Expected Outcomes/Goals 1. Labs WNL 2. Tube feeding continue to be tolerated 3. F/U in 2-3 days as HR (05/14 -)
--- NOTE | 2018-05-22 03:12 | Progress Notes ---
DATE: UROLOGY FOLLOWUP SUBJECTIVE: The patient remains in the ICU, stable, but hemoglobin has been drifting down again, which is a concern. The urine has been clear with irrigation and hematuria seems to have settled down. PHYSICAL EXAMINATION: GENERAL: She is communicative. VITAL SIGNS: Temperature 98.2, heart rate 62, and blood pressure 128/78. ABDOMEN: Obese, soft, nontender. Bladder decompressed and Morfin catheter clear urine. EXTREMITIES: Trace edema. CARDIOVASCULAR: Heart sounds sinus rhythm, no murmur. LABORATORY DATA: White count 14,000, recently again showing a small rise; hemoglobin 8.6, not terribly changed from last 3-4 days; 2 bands in the urine today for the first time; and platelets normal. Glucose 201, 157, and 160. Electrolytes unremarkable. BUN 14 and creatinine 0.8. All are basically unchanged. ASSESSMENT: Hemorrhagic cystitis growing Klebsiella and Proteus, bladder irrigation and antibiotics under good control. She requires ongoing Morfin catheter care, which has been defined several times now. Ventilator and G tube dependency. Both are relatively stable. Left hydronephrosis also stable with a kidney function not changing. DNR status remains the same. Diabetes, fair control. JOB# [id number]
== END 2018-05-21 21:55 | DRG 853 ==
LOC: ER 15:23 → ICU 19:00
PROVIDERS: ADMIT Internal Medicine; ATTEND Internal Medicine
PROC: 30233N1 Transfusion of Nonautologous Red Blood Cells into Peripheral Vein, Percutaneous Approach (ICD-10-PCS; 2018-05-12)
PROC: 5A1955Z Respiratory Ventilation, Greater than 96 Consecutive Hours (ICD-10-PCS; principal; 2018-05-14)
PROC: 0T5B8ZZ Destruction of Bladder, Via Natural or Artificial Opening Endoscopic (ICD-10-PCS; 2018-05-17)
PROC: 0TCB8ZZ Extirpation of Matter from Bladder, Via Natural or Artificial Opening Endoscopic (ICD-10-PCS; 2018-05-17)
DX: A41.9 Sepsis, unspecified organism (principal); J96.00 Acute respiratory failure, unspecified whether with hypoxia or hypercapnia; J69.0 Pneumonitis due to inhalation of food and vomit; R53.2 Functional quadriplegia; J96.10 Chronic respiratory failure, unspecified whether with hypoxia or hypercapnia; Z99.11 Dependence on respirator [ventilator] status; E87.1 Hypo-osmolality and hyponatremia; N13.6 Pyonephrosis; E46 Unspecified protein-calorie malnutrition; I10 Essential (primary) hypertension; E11.9 Type 2 diabetes mellitus without complications; K21.9 Gastro-esophageal reflux disease without esophagitis; E66.9 Obesity, unspecified; G20 Parkinson's disease; F02.80 Dementia in other diseases classified elsewhere, unspecified severity, without behavioral disturbance, psychotic disturbance, mood disturbance, and anxiety; G40.909 Epilepsy, unspecified, not intractable, without status epilepticus; E03.9 Hypothyroidism, unspecified; Z66 Do not resuscitate; R33.9 Retention of urine, unspecified; B96.1 Klebsiella pneumoniae [K. pneumoniae] as the cause of diseases classified elsewhere; D63.8 Anemia in other chronic diseases classified elsewhere; K29.70 Gastritis, unspecified, without bleeding; R13.10 Dysphagia, unspecified; N30.81 Other cystitis with hematuria; D50.9 Iron deficiency anemia, unspecified; M81.0 Age-related osteoporosis without current pathological fracture; L89.151 Pressure ulcer of sacral region, stage 1; B96.4 Proteus (mirabilis) (morganii) as the cause of diseases classified elsewhere; Z93.0 Tracheostomy status; Z16.12 Extended spectrum beta lactamase (ESBL) resistance; Z93.1 Gastrostomy status; Z86.73 Personal history of transient ischemic attack (TIA), and cerebral infarction without residual deficits; Z68.31 Body mass index [BMI] 31.0-31.9, adult; Z74.01 Bed confinement status; Z79.4 Long term (current) use of insulin
CPT/HCPCS: 36415-UA; 71045-TC; 74000-TC; 76770-TC; 80048-TC; 80053-TC; 80150-TC; 80299-90; 80307; 81001-TC; 82140-TC; 82607-90; 82746-90; 82948-90; 83036-90; 83540-90; 83550-90; 83605; 83735-TC; 83880-TC; 84100-TC; 84443-TC; 85007-TC; 85025-TC; 85610-TC; 86850-TC; 86900-TC; 86901-TC; 86922-TC; 87070; 87086-90; 94002; 94003; 94640; 96372; A4217; C9113; J0278; J1265; J1815; J2543; J2704; J3370; J3490; J7030; P9016; V2790; X7704; Z7610